=== PATIENT | female | born 1960 | race Caucasian/White ===

== ENCOUNTER 2021-10-04 15:14 | Outpatient (CLI) | payer BC, SELFPAY ==
--- NOTE | ~2021-10-04 | XR_ITS ---
EXAMINATION: XR scapula LT DATE: 10/04/2021 15:33 INDICATION: Posterior left scapular pain. TECHNIQUE: AP and lateral views of the left scapula were obtained. COMPARISON: None. FINDINGS: Alignment is normal. No fracture. Mild left glenohumeral and acromioclavicular osteoarthritis. Visual ized portion of the left lung are clear. Severe lower cervical uncovertebral osteoarthritis. IMPRESSION: 1. Mild left glenohumeral and acromioclavicular osteoarthritis. No acute osseous abnormality. 2. Severe lower cervical uncovertebral osteoarthritis. Reviewed, dictated and finalized at location A. IMPRESSION: 1. Mild left glenohumeral and acromioclavicular osteoarthritis. No acute osseou s abnormality. 2. Severe lower cervical uncovertebral osteoarthritis.
== END 2021-10-04 15:15 | disposition home or self-care (01) ==
LOC: CHSIMG 15:18
PROVIDERS: PCP Nurse Practitioner Family; Visit Provider Nurse Practitioner Family
DX: M89.8X1 Other specified disorders of bone, shoulder (principal)
CPT/HCPCS: 73010

== ENCOUNTER 2024-04-14 10:32 | Outpatient (CLI) | payer BC, SELFPAY ==
--- NOTE | ~2024-04-14 | XR_ITS ---
Left foot Technique: AP, oblique, and lateral views were obtained. Clinical History: Cellulitis Findings: No acute fracture or dislocation is seen. Osseous alignment is anatomic. Joint spaces are p reserved without erosive or degenerative change. Soft tissues are unremarkable. Impression: Unremarkable left foot radiographs. Reviewed, dictated and finalized at [facility]. Impression: Unremarkable left foot radiographs.
== END 2024-04-14 10:33 | disposition home or self-care (01) ==
PROVIDERS: PCP Nurse Practitioner Family; Visit Provider Nurse Practitioner Family
DX: L03.116 Cellulitis of left lower limb (principal)
CPT/HCPCS: 73630; 87070; 87075; 87181; 87205

== ENCOUNTER 2024-04-17 01:15 | Observation (INO) | payer BC, SELFPAY ==
[2024-04-17] VITALS (7 sets, daily range): BP systolic 126–147; BP diastolic 58–72; PULSE 77–85; RESP 14–18; TEMP 36.5–37.1; O2SAT 96–100; BMI 28.0
--- NOTE | ~2024-04-17 | CT_ITS ---
EXAMINATION: CT foot LT w con DATE: 04/17/2024 10:44 INDICATION: Left foot laceration with swelling and concern for osteomyelitis. TECHNIQUE: High resolution computed tomography (CT) of the left foot was performed with 100 mL Omnipa que-350 intravenous contrast. Additional sagittal and coronal reconstructions were performed. Automat ed exposure control and iterative reconstruction technique were employed. The dose-length product was 397.35 mGy-cm. COMPARISON: None FINDINGS: There is an approximately 2 x 2 x 1.5 cm fluid attenuation region of likely phlegmonous change withou t an organized peripheral enhancing wall to suggest abscess located deep to a focal small low-density puncture wound plantar to the tibial sesamoid of the first metatarsal. No evident radiopaque foreign body or soft tissue gas. No cortical erosion to suggest osteomyelitis. Bone alignment is normal. No fracture. 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 No ivonne int effusions to suggest a septic arthritis. Soft tissue swelling with subcutaneous edema extending o amy the dorsum of the foot. IMPRESSION: 1. Puncture wound plantar to the head of the first metatarsal with small region of underlying phlegmo nous change without organized abscess, retained foreign body, soft tissue gas or associated osteomyel itis. Reviewed, dictated and finalized at location A. UREMENT REPRESENTATIVE IMPRESSION: 1. Puncture wound plantar to the head of the first metatarsal with small region of underlying phlegmonous change without organized abscess, retained foreign b eugene, soft tissue gas or associated osteomyelitis.
--- NOTE | 2024-04-17 01:05 | ED.WOUNDLAC ---
HPI - Wound/Laceration General Chief Complaint: Wound/Laceration Stated Complaint: foot pain Time Seen by Provider: 04/17/24 01:28 CDT Source: patient History of Present Illness HPI narrative: this is a 63-year-old female with no significant past medical history presents to the ER with some left lower foot and leg erythema, the patient apparently was walking barefoot in her basement and stepped on a piece of glass and had a cut and was seen by her primary and started on doxycycline but the area appears to be spreading with erythema and redness with warmth and tenderness to her left lower leg, the foot has some sloughing of skin with minimal yellow drainage. Patient is afebrile. Onset (ago): day(s) Location: other Extremity Location: Left: lower leg ( erythema warmth and tenderness) and foot ( Erythema warmth and tenderness) Place: home Patient tetanus UTD: Yes Context: accidental Related Data Allergies Allergy/AdvReac Type Severity Reaction Status Date / Time amoxicillin Allergy Intermediate unknown Verified 04/14/24 10:04 erythromycin base Allergy Intermediate unknown Verified 04/14/24 10:04 Sulfonamides Allergy Intermediate unknown Uncoded 04/14/24 10:04 Review of Systems Review of Systems: All systems reviewed & are unremarkable except as noted in HPI and below PMFSH Past Medical History Medical History (Reviewed 04/17/24 @ 01:08 PAPER PRODUCTS INSPECTOR by Shawn Gary MD) History of chicken pox History of shingles Surgical History Surgical History (Reviewed 04/17/24 @ 01:08 PAPER PRODUCTS INSPECTOR by Shawn Gary MD) H/O oral surgery No pertinent past surgical history Social History Social History (Reviewed 04/17/24 @ 01:08 PAPER PRODUCTS INSPECTOR by Shawn Gary MD) Smoking status: Never smoker Tobacco type: cigarettes Alcohol intake: never Alcohol use details: Allergy to beer Substance use: never Substance use type: does not use Exam Const: General: healthy appearing, no acute distress and alert Nutritional Appearance: well nourished Orientation/consciousness: patient oriented x3 Limitations: no limitations Resp: Effort & Inspection: normal respiratory effort Auscultation: clear to auscultation bilaterally Cardio: Rate: regular rate Rhythm: regular rhythm GI: GI Palp: Yes Soft to palpation Auscultation: normal bowel sounds Urinary Catheter: Urinary Catheter: patent and draining Back/Spine/Pelvis: Back: no CVA tenderness Skin: Wounds: wounds noted Neuro: General: patient oriented x3 and moves all extremities Course Course Emergency Course: Labs reviewed blood cultures drawn, patient started on Levaquin IV 500mg along with IV fluids and admission to hospitalist service, Vital Signs Vital signs: Vital Signs Temperature 36.5 C 04/17/24 01:19 CDT Pulse Rate 85 04/17/24 01:19 CDT Respiratory Rate 18 04/17/24 01:19 CDT Blood Pressure 126/72 04/17/24 01:19 CDT Pulse Oximetry 100 04/17/24 01:19 CDT Oxygen Delivery Room Air 04/17/24 01:19 CDT Temperature 36.5 C 04/17/24 01:19 CDT Pulse Rate 85 04/17/24 01:19 CDT Respiratory Rate 18 04/17/24 01:19 CDT Blood Pressure 126/72 04/17/24 01:19 CDT Pulse Oximetry 100 04/17/24 01:19 CDT Oxygen Delivery Room Air 04/17/24 01:19 CDT Critical Care Time Critical Care Time Critical Care Time: No Discharge Plan Discharge Clinical Impression: Cellulitis of left foot Patient Disposition: Acute Care Hospital [facility] Condition: Guarded Prognosis Prescriptions: No Action doxycycline monohydrate 100 mg capsule 100 mg PO BID Qty: 20 0RF Follow-up/Referrals: Diann Crain NP [Primary Care Provider] - Time of Disposition: 01:10
[2024-04-17] MEDS: SODIUM CHLORIDE 0.9% IV 1,000 ML 999 ML IV CONT (01:21)
[2024-04-17] MEDS: levoFLOXacin 500 MG/D5W 100 ML 500 MG/100 ML BAG 100 MG IVPB (01:25)
--- NOTE | 2024-04-17 01:34 | PC.NURSE ---
ERp Dr Gary spoke w/ pt about admission for cellulitis. Pt agreeable to admission.
--- NOTE | 2024-04-17 01:42 | PC.NURSE ---
Called for bed and spoke w/ accounts payable manager Holly, report given,
--- NOTE | 2024-04-17 01:44 | PC.NURSE ---
Call back from Lizz. Pt will go to Rm [id number]
[2024-04-17] MEDS: MORPHINE SULFATE (*CRX) 2 MG/ML INJ IV PUSH (01:59)
[2024-04-17] MEDS: SODIUM CHLORIDE 0.9% IV 1,000 ML 100 ML IV CONT (02:02)
[2024-04-17 02:07] LABS: Alanine Aminotransferase 15 U/L (14-59); Albumin Level 2.7 g/dL (3.4-5.0); Alkaline Phosphatase 72 U/L (46-116); Anion Gap 14 mmol/L (4-12); Aspartate Amino Transferase 12 U/L (15-37); Blood Urea Nitrogen 18 mg/dL (7-18); Calcium 8.9 mg/dL (8.5-10.1); Carbon Dioxide 26 mmol/L (21-32); Chloride 93 mmol/L (98-108); Estimated CRCL calculation 50 ml/min; Estimated Glomerular Filt Rate 54; Glucose 271 mg/dL (70-99); Osmolality Calculated 287 mOsm/kg (285-295); Potassium 3.6 mmol/L (3.5-5.1); Sodium 133 mmol/L (136-145); Total Protein 7.2 g/dL (6.4-8.2)
[2024-04-17 02:13] LABS: Basophils Absolute Auto 0.12 K/mm3 (0.00-0.10); Basophils Percent Auto 0.8 % (0.0-1.0); Eosinophils Absolute Auto 0.13 K/mm3 (0.02-0.50); Eosinophils Percent Auto 0.9 % (1.0-6.0); Hematocrit 37.8 % (35.0-49.0); Hemoglobin 12.6 g/dL (12.0-15.0); Immature Granulocyte Absolute 0.14 K/mm3 (0.00-0.00); Lymphocytes Absolute Auto 1.01 K/mm3 (1.10-4.50); Mean Corpuscular HGB Conc 33.3 g/dL (32-36); Mean Corpuscular Hemoglobin 27.6 pg (27.0-31.0); Mean Corpuscular Volume 82.7 fL (78.0-102.0); Mean Platelet Volume 9.8 fl (9.2-11.8); Monocytes Absolute Auto 1.12 K/mm3 (0.10-0.90); Monocytes Percent Auto 7.8 % (2.0-11.0); Neutrophils Absolute Auto 11.88 K/mm3 (1.70-7.20); Neutrophils Percent Auto 82.5 % (50.0-70.0); Platelet Count Result 267 K/mm3 (150-420); Red Blood Count 4.57 M/mm3 (4.20-5.40); Red Cell Distribution Width 11.9 % (11.6-14.4); White Blood Count 14.4 K/mm3 (4.8-10.8)
--- NOTE | 2024-04-17 02:48 | ADMGEN ---
This patient, Ida Grande, was admitted to 2nd Floor Room 226-2. Patient oriented to hospital policies and general routines including ID bracelet, bed and alarms, visiting hours, pain management, procedures, bathroom and other care routines, personal items, smoking policy, room service/diet, and visiting hours. Information on how to activate the Rapid Response Team has been discussed. Patient are encouraged to report perceived risks to care and to ask questions if they do not understand what they are told or what they should do.
[2024-04-17 06:28] LABS: Basophils Absolute Auto 0.08 K/mm3 (0.00-0.10); Basophils Percent Auto 0.6 % (0.0-1.0); Eosinophils Absolute Auto 0.06 K/mm3 (0.02-0.50); Eosinophils Percent Auto 0.4 % (1.0-6.0); Hematocrit 33.1 % (35.0-49.0); Immature Granulocyte Absolute 0.18 K/mm3 (0.00-0.00); Immature Granulocyte Percent A 1.3 % (0.0-0.0); Lymphocytes Absolute Auto 0.83 K/mm3 (1.10-4.50); Lymphocytes Percent Auto 6.1 % (18.0-42.0); Mean Corpuscular HGB Conc 33.2 g/dL (32-36); Mean Corpuscular Hemoglobin 27.4 pg (27.0-31.0); Mean Corpuscular Volume 82.3 fL (78.0-102.0); Mean Platelet Volume 9.7 fl (9.2-11.8); Neutrophils Absolute Auto 11.42 K/mm3 (1.70-7.20); Neutrophils Percent Auto 83.6 % (50.0-70.0); Platelet Count Result 214 K/mm3 (150-420); Red Blood Count 4.02 M/mm3 (4.20-5.40); Red Cell Distribution Width 11.8 % (11.6-14.4); White Blood Count 13.7 K/mm3 (4.8-10.8)
[2024-04-17 06:52] LABS: Alanine Aminotransferase 16 U/L (14-59); Albumin Level 2.2 g/dL (3.4-5.0); Alkaline Phosphatase 72 U/L (46-116); Anion Gap 12 mmol/L (4-12); Aspartate Amino Transferase 12 U/L (15-37); Bilirubin,Total 0.8 mg/dL (0.00-1.00); Blood Urea Nitrogen 18 mg/dL (7-18); Calcium 8.2 mg/dL (8.5-10.1); Carbon Dioxide 23 mmol/L (21-32); Chloride 96 mmol/L (98-108); Estimated CRCL calculation 76 ml/min; Estimated Glomerular Filt Rate > 60; Glucose 259 mg/dL (70-99); Osmolality Calculated 282 mOsm/kg (285-295); Sodium 131 mmol/L (136-145); Total Protein 6.2 g/dL (6.4-8.2)
[2024-04-17] MEDS: ACETAMINOPHEN 325 MG TABLET 650 MG PO (07:44)
[2024-04-17 10:34] LABS: Hemoglobin A1C 13.1 % (<5.7)
[2024-04-17] MEDS: VANCOMYCIN 1,500 MG/NS 500 ML 1,500 MG/500 ML BAG 250 MG IVPB (11:38)
[2024-04-17] MEDS: metroNIDAZOLE 250 MG TABLET 500 MG PO (14:23)
--- NOTE | 2024-04-17 16:10 | PM.TDS ---
Transfer Discharge Sum: Prov Provider Date of admission: 04/17/24 01:46 PAPERHANGER Primary care physician: Diann Crain NP Admitting clinician: Terry Daley MD DS: Admitting Diagnosis Discharge Date 04/17/24 Admitting Diagnosis Foot wound DS: Discharge Diagnosis Discharge Diagnosis (1) Diabetic foot ulcer: Code(s): E11.621 - Type 2 diabetes mellitus with foot ulcer; L97.509 - Non-pressure chronic ulcer of other part of unspecified foot with unspecified severity Status: Acute Assessment and Plan: Patient reports walking barefoot in her basement earlier this week and stepped on an unknown object. She did not initially notice that she had stepped on anything until she was getting into the shower and noticed her foot was bleeding. Once she noticed it was bleeding she cleaned the wound with peroxide and placed a bandage. She was seen by her PCP who had an x-ray completed, tetanus shot, and started her on doxycycline. She attempted to go to work the next couple of days but had to leave early both times. On Thursday evening she noticed the erythema and edema was worse with dark coloration between her great and first toe. It was at this time she decided to come into the ED for evaluation. Wound photos were taken on admission Blood cultures pending, wound culture pending Started on Zosyn in the ED. Changed to Vancomycin, Cefepime, and oral Flagyl Lactic was not drawn on admission. Ordered lactic and CRP. She received 1 L NS in the ED and was started on NS at 100 ml per hour. Okay to d/c fluids at this time. Blood pressures are stable. Dr Dominique was contacted and has accepted the patient for consult for possible surgical debridement. He will see her tomorrow. Elevate leg, pain control She will need to transfer to [facility] for surgical consult. Patient has been accepted by the mid-shift provider (2) Cellulitis of left foot: Code(s): L03.116 - Cellulitis of left lower limb Status: Acute Assessment and Plan: see above (3) Diabetes: Code(s): E11.9 - Type 2 diabetes mellitus without complications Status: Acute Assessment and Plan: No history per patient report. Blood glucose was 252 on labs. Hemoglobin A1C was 13% started on Lantus 13 units hs, moderate SSI ac/hs accu checks, hypoglycemia protocol diabetic diet needs diabetes education and dietitian consult Transfer Discharge Sum: Med Medications Active and Home Medications: Home Medications doxycycline monohydrate 100 mg capsule 100 mg PO BID #20 caps 04/14/24 [Rx Confirmed 04/17/24] Active Medications Acetaminophen (Acetaminophen 325 Mg Tablet) 650 mg PO Q4H PRN PRN Reason: Mild Pain (1-3) or Fever Last Admin: 04/17/24 07:44 Dose: 650 mg Vancomycin HCl (Vancomycin 1,500 Mg/Ns 500 Ml) 1,500 mg in 500 mls @ 250 mls/hr IVPB Q18H [facility] Last Infusion: 04/17/24 13:40 Dose: Infused Cefepime HCl (Maxipime 2 Gm/Ns 50 Ml) 2 gm in 50 mls @ 100 mls/hr IVPB Q12HR JOSIE Metronidazole (Metronidazole 250 Mg Tablet) 500 mg PO Q8HR [facility] Last Admin: 04/17/24 14:23 Dose: 500 mg Morphine Sulfate (Morphine Sulfate (*Crx) 2 Mg/Ml Inj) 2 mg IV PUSH Q4H PRN PRN Reason: Pain Rated 7-10 Last Admin: 04/17/24 01:59 PAPERHANGER Dose: 2 mg Naloxone HCl (Naloxone Hcl 0.4 Mg/Ml Vial) 0.1 mg IV PUSH Q2M PRN PRN Reason: Opiate Reversal Transfer Discharge Sum: Hosp Hospital Course Hospital course: Ida Grande is a 63 year old female with no significant past medical history but found to have a hemoglobin A1C. Patient reports walking barefoot in her basement earlier this week and stepped on an unknown object. She did not initially notice that she had stepped on anything until she was getting into the shower and noticed her foot was bleeding. Once she noticed it was bleeding she cleaned the wound with peroxide and placed a bandage. She was seen by her PCP who had an x-ray completed, tetanus shot, and started her on doxycycline. She attempted to go to work the next couple of days but had to leave early both times. On Thursday evening she noticed the erythema and edema was worse with dark coloration between her great and first toe. It was at this time she decided to come into the ED for evaluation. In the emergency room labs were significant for a WBC of 14.4, sodium 131, and Cr 1.03. Her blood glucose was elevated in the 200's and hemoglobin was found to be 13%. She was started on IV Levaquin, 1 L NS and was started on maintenance fluids at 100 ml per hour. Lactic was not checked. Blood cultures were drawn. She was admitted in this setting by the emergency room provider with a diagnosis of cellulitis. Time Spent with Patient Time attestation: Total time spent providing and/or coordinating transfer services: 90 Exam Narrative: General: appears comfortable, in no acute distress, flat expression Respiratory: breathing is unlabored with even chest rise/fall, lungs are clear without wheezing, rhonchi, and crackles Cardiovascular: Rate and rhythm regular, normal s1s2, no murmur Abdomen: Soft, round, non-tender, active bowel sounds Extremities: No cyanosis, clubbing. Pulses 2/2. Left lower extremity has erythema and edema starting in her foot and traveling up into her left leg. She has a puncture wound to the ball of her foot below her great toe. Wound is open and draining purulent drainage. She has a blister that has opened with surrounding white tissue. Neuro: A&O x 4 Skin: Warm, dry, intact. DS: Data Data Completed and Pending Labs on day of discharge: Labs from last 24 hours 04/17/24 04/17/24 04/17/24 06:09 05:52 01:21 PAPERHANGER WBC 13.7 H 14.4 H RBC 4.02 L 4.57 Hgb 11.0 L 12.6 Hct 33.1 L 37.8 MCV 82.3 82.7 MCH 27.4 27.6 MCHC 33.2 33.3 RDW 11.8 11.9 Plt Count 214 267 MPV 9.7 9.8 Immature Gran % (Auto) 1.3 H 1.0 H Neut % (Auto) 83.6 H 82.5 H Lymph % (Auto) 6.1 L 7.0 L Island % (Auto) 8.0 7.8 Eos % (Auto) 0.4 L 0.9 L Baso % (Auto) 0.6 0.8 Lymph # (Auto) 0.83 L 1.01 L Island # (Auto) 1.10 H 1.12 H Eos # (Auto) 0.06 0.13 Baso # (Auto) 0.08 0.12 H Abs Immat Gran (auto) 0.18 H 0.14 H Absolute Neuts (auto) 11.42 H 11.88 H Absolute Nucleated RBC 0.00 0.00 Nucleated RBC % 0.0 0.0 Sodium 131 L 133 L Potassium 4.0 3.6 Chloride 96 L 93 L Carbon Dioxide 23 26 Anion Gap 12 14 H BUN 18 18 Creatinine 0.74 1.03 H Estim Creat Clear Calc 76 50 Estimated GFR > 60 54 L Glucose 259 H 271 H Hemoglobin A1c 13.1 H Calculated Osmolality 282 L 287 Calcium 8.2 L 8.9 Total Bilirubin 0.8 1.0 AST 12 L 12 L ALT 16 15 Alkaline Phosphatase 72 72 Total Protein 6.2 L 7.2 Albumin 2.2 L 2.7 L
[2024-04-17 17:56] LABS: Glucose Point of Care 383 mg/dl (65-105)
[2024-04-17] MEDS: CEFEPIME 2 GM/NS 50 ML 2 GM/50 ML BAG IVPB (18:04)
[2024-04-17] MEDS: HYDROcodone/acetaminophen (*CRX) 10-325 MG TABLET 1 TAB PO (18:06)
[2024-04-17] MEDS: INSULIN HUMAN LISPRO (*BKC) 1,000 UNITS/10 ML VIAL SUB-Q (18:07)
[2024-04-17] MEDS: ONDANSETRON INJ 4 MG/2 ML VIAL IV PUSH (19:55)
[2024-04-17 20:50] LABS: Glucose Point of Care 253 mg/dl (65-105)
--- NOTE | 2024-04-17 21:04 | PC.NURSE ---
Pt c/o nausea and had emesis while family at bedside. This RN administered Zofran IVP, given emesis bags, and brought a cool rag to cool pt. Pt's vomiting subsided until [facility] arrived to transfer pt. Pt vomited more while on the EMS stretcher, and stated after vomiting she feels slightly better. Pt belongings taken w/pt by EMS.
[2024-04-17 22:41] LABS: Glucose Point of Care 309 mg/dl (65-105)
== END 2024-04-17 20:50 | disposition short-term general hospital (02) ==
LOC: CHS2ND 01:47
PROVIDERS: Nurse Practitioner Acute Care; Admitting Provider Internal Medicine; Emergency Provider Emergency Medicine; PCP Nurse Practitioner Family; Visit Provider Internal Medicine
DX: L03.116 Cellulitis of left lower limb (principal); E11.621 Type 2 diabetes mellitus with foot ulcer; L97.509 Non-pressure chronic ulcer of other part of unspecified foot with unspecified severity
CPT/HCPCS: 36415; 73701; 80053; 82948; 83036; 85025; 87040; 87075; 87181; 96365; 96366; 96367; 96375; 99285; A9270; G0378; J0692; J1815; J2270; J2405; J3370; J7030; Q9967

== ENCOUNTER 2024-04-17 21:58 | Inpatient (IN) | payer BC, SELFPAY ==
--- NOTE | ~2024-04-17 | US_ITS ---
ULTRASOUND ANKLE BRACHIAL INDEX Ordering provider: Nikita Dominique MD History: . Left foot diabetic ulcer . Comparison: None. FINDINGS: Right brachial systolic blood pressure: 196 mmHg Left brachial systolic blood pressure: CNO mmHg Right ankle systolic blood pressure: 159 mmHg Left ankle systolic blood pressure: 15 2 mmHg Right ankle/arm index (GORDON): 0.81 Left ankle/arm index (GORDON): 0.78 Note regarding GORDON: --Normal= 1.0 or slightly greater. --Claudication (moderate stenosis or occlusive state)= 0.6 to 0.9. --Rest pain (severe occlusive states)= 0.5 or less. Vessels: IMPRESSION: Moderate stenosis is suggestive bilaterally. Reviewed, dictated and finalized at location A. ICAL SERVICES ASST
--- NOTE | ~2024-04-17 | MR_ITS ---
CORRECTED REPORT corrected examination description to MR foot LT wo con [facility] [place] 04/21/24 This report was recreated on 04/21/24. Original report was BORE OPERATOR EXAMINATION: MR foot LT wo con DATE: 04/20/2024 16:56 INDICATION: Left foot diabetic infection. TECHNIQUE: Magnetic resonance imaging (MRI) of the left foot was performed without intravenous contrast. COMPARISON: Left foot CT 04/17/2024, radiographs 04/14/2024 FINDINGS: Alignment is normal. No fracture. There is mild osteoarthritis of some of the midfoot and forefoot joints. There is mild tenosynovitis of flexor hallucis longus. There is widespread edema in the soft tissues of the foot, consistent with cellulitis. There are drains in the plantar soft tissues of the forefoot. IMPRESSION: 1. No evidence of osteomyelitis. Reviewed, dictated and finalized at location A. BORE OPERATOR MTDD
--- NOTE | 2024-04-17 21:51 | P.HP_ITS ---
H&P: HPI History of Present Illness Date/Time: 04/17/24 21:51 Chief Complaint: Foot Wound Narrative: 63 y/o F presents here with wound to left foot with PMH of shingles, migraines, and is post-menopausal. The patient presented to [place] ER for further evaluation of left foot wound and left leg redness.? She initially believes wound developed after she was walking barefoot in her apartment and she stepped on something sharp causing a cut. ?After injury she cleaned the wound with peroxide and placed a bandage.? Initially sought care with her PCP started her on doxycycline on 04/14, update her Tdap, and an x-ray was obtained.? Foot XR on 04/14 was unremarkable. ?However, despite ABX initiation the area has continued to increase in redness, warmth, and tenderness.? Now having sloughing of the skin and scant yellow drainage.? She denies associated fever, chills, or body aches.? She endorses pain to the left foot.? During her initial workup was noted that she had a blood glucose of 271 no prior known history of diabetes.? A1C was 13%.? She denies associated polydipsia, polyuria, fatigue, clamminess, nausea, vomiting.? Patient was initially admitted to [place], however given worsening wound she is being transferred here for a general surgery consultation for possible debridement versus amputation. ED workup showed:? WBC 14.4, sodium 131, creatinine 1.03 and GFR 54 (no previous available for comparison), glucose 271, hemoglobin A1C 13%. Foot CT performed today (04/17) showed puncture wound plantar to the head of the 1st metatarsal with small region of underlying phlegmonous change change without organized abscess, retained foreign body, soft tissue gas, or associated osteomyelitis. Review of Systems Review of Systems: All systems reviewed & are unremarkable except as noted in HPI and below PMFSH Past Medical History Medical History History of chicken pox History of shingles Migraines Surgical History Surgical History H/O oral surgery Social History Social History Smoking status: Never smoker Tobacco type: cigarettes Alcohol intake: never Alcohol use details: Allergy to beer Substance use: never Substance use type: does not use Do You Feel Safe in your Home?: Yes Lack of Transportation: No Lack of Food: Never True Current Housing: I Have Housing Concerned About Future Housing: No Difficulty Paying Gas/Electric Bills: No Difficulty Paying for Meds: No Currently Unemployed: No Education: Trade/Vocational Certificate Difficulty w/ Childcare or Family Care: No Spiritual care concerns: Yes (Yazidi) Meds Home Medications and Allergies Home Medications Medication Instructions Recorded Confirmed Type No Home Medications 04/17/24 04/17/24 History Allergies Allergy/AdvReac Type Severity Reaction Status Date / Time amoxicillin Allergy Intermediate unknown Verified 04/14/24 10:04 erythromycin base Allergy Intermediate unknown Verified 04/14/24 10:04 Sulfonamides Allergy Intermediate unknown Uncoded 04/14/24 10:04 Exam Const: General: no acute distress and uncomfortable Other: , female, ill appearing HENMT: Face/Nose/Sinus: Normal nares present Mouth: Yes moist mucous membranes Eyes: General: appearance normal, both eyes and all related structures Sclera: sclerae normal Pupils: Equal, round and reactive pupils present EOM: EOMs intact bilaterally Resp: Effort & Inspection: normal respiratory effort Auscultation: clear to auscultation bilaterally Cardio: Rate: regular rate Rhythm: regular rhythm Other: S1-S2 present without murmur, rub, ectopy GI: Other: Abdomen soft, nondistended, nontender Skin: General skin exam: normal color and no rashes or lesions noted Wounds: wounds noted Other: Open wound to plantar aspect of left foot near base of 1st toe measuring approximately 1 cm with scant/diffuse yellow drainage. Sloughing starting at base of left 1st toe and stops near arch. Sloughing to dorsal aspect of foot. Erythema prominent to dorsal aspect of foot but does not extend to 2nd through 5th toe which are pale with poor cap refill. Erythema streaking up left leg involving the distal 1/3 of her calf. DP pulses intact. Skin moist near forehead. Neuro: Speech: normal speech Motor exam (neuro): 5/5 motor strength present throughout Sensory Exam: normal sensation Other: A&O x4 Extrem: General: normal exam except as noted Other: No edema. Psych: Mental Status: mental status grossly normal Affect: normal affect Other: Good insight and judgment, pleasant. Assessment and Plan Assessment and plan (1) Diabetic foot ulcer: Qualifiers: Diabetes mellitus type: type 2 Diabetic foot ulcer location: toe Laterality: left Non-pressure ulcer stage: unspecified non-pressure ulcer stage Qualified Code(s): E11.621 - Type 2 diabetes mellitus with foot ulcer; L97.529 - Non-pressure chronic ulcer of other part of left foot with unspecified severity Code(s): E11.621 - Type 2 diabetes mellitus with foot ulcer; L97.509 - Non-pressure chronic ulcer of other part of unspecified foot with unspecified severity Status: Acute Assessment and Plan: - CT foot: 1. Puncture wound plantar to the head of the first metatarsal with small region of underlying phlegmonous change without organized abscess, retained foreign body, soft tissue gas or associated osteomyelitis. - wound documented via photo at beginning of admission, plan to update. - started on Zosyn in the ED. has since been transitioned to vancomycin IV, cefepime IV, and Flagyl p.o., continue. - lactic not completed during initial evaluation, add procalcitonin and CRP - generally surgery consulted for possible surgical debridement versus amputation, awaiting formal recs - analgesics and antipyretics p.r.n. - wound nurse consulted (2) Cellulitis of left foot: Code(s): L03.116 - Cellulitis of left lower limb Status: Acute Assessment and Plan: - see above (3) Diabetes: Qualifiers: Diabetes mellitus complication status: with hyperglycemia Diabetes mellitus predatory animal exterminator insulin use: without predatory animal exterminator use Diabetes mellitus type: type 2 Qualified Code(s): E11.65 - Type 2 diabetes mellitus with hyperglycemia Code(s): E11.9 - Type 2 diabetes mellitus without complications Status: Acute Assessment and Plan: - initial glucose 271 and A1C 13% - started on Lantus 13 units HS - hypoglycemia protocol - POC blood glucose ACHS - correct regimen ordered - moderate dose TIDWM - master electrician and dietitian consulted Plan Patient had nausea and vomiting prior to leaving [facility]. Given 1 dose of Zofran with minimal relief. Exchanged to Reglan as first-line antiemetic and Benadryl as second-line antiemetics. Patient facing backwards in the ambulance which worsened the nausea, hx of motion sickness. One dose of meclizine ordered. Diet: diabetic GI Prophylaxis: not currently indicated DVT Prophylaxis: Lovenox Lines: peripheral Code Status: full code Quality VTE Prophylaxis VTE prophylaxis: pharmacologic ordered Hospitalist MIPS Advance Care Plan I have confirmed that the patient's Advanced Care Plan is present, code status is documented, or surrogate decision maker is listed in patient medical record.: Yes Medication Reconciliation I have utilized all available resources to obtain, update and review the patients current medications (includes all prescriptions, OTC, herbals, cannabis, and nutritional supplements).: Yes
[2024-04-17 22:00] VITALS: BP 176/55; PULSE 71; RESP 16; TEMP 36; O2SAT 97
[2024-04-17] MEDS: MECLIZINE HCL 25 MG TABLET PO (22:35)
[2024-04-17] MEDS: INSULIN GLARGINE (*BKC) 100 UNITS/ML 13 UNITS SUB-Q (22:51)
[2024-04-17] MEDS: INSULIN ASPART (*BKC) 100 UNITS/ML SUB-Q (22:52)
[2024-04-17] MEDS: VANCOMYCIN 500 MG/NS 100 ML 500 MG/100 ML BAG 100 MG IVPB (22:58)
[2024-04-17 23:01] VITALS: BMI 28.0
[2024-04-17] MEDS: METOCLOPRAMIDE HCL INJ 10 MG/2 ML VIAL IV PUSH (23:03)
[2024-04-17] MEDS: metroNIDAZOLE 500 MG TABLET PO (23:33)
--- NOTE | 2024-04-17 23:47 | ADMGEN ---
This patient, Ida Grande, was admitted to Medical Room 245-. Patient/family oriented to hospital policies and general routines including ID bracelet, bed and alarms, visiting hours, pain management, procedures, bathroom and other care routines, personal items, smoking policy, room service/diet, and visiting hours. Information on how to activate the Rapid Response Team has been discussed. Patient/Family are encouraged to report perceived risks to care and to ask questions if they do not understand what they are told or what they should do.
[2024-04-18] VITALS (14 sets, daily range): BP systolic 95–166; BP diastolic 54–71; PULSE 69–77; RESP 12–20; TEMP 36.2–37.2; O2SAT 93–100; BMI 28.1
[2024-04-18 05:59] LABS: Alanine Aminotransferase 12 U/L (6-35); Albumin Level 3.2 g/dL (3.5-5.1); Alkaline Phosphatase 66 U/L (38-126); Anion Gap 10 mmol/L (4-12); Aspartate Amino Transferase 18 U/L (14-36); Bilirubin,Total 0.5 mg/dL (0.2-1.3); Blood Urea Nitrogen 15 mg/dL (7-17); CRP 7.1 mg/dL (<1.0); Calcium 8.4 mg/dL (8.4-10.2); Carbon Dioxide 25 mmol/L (22-30); Chloride 98 mmol/L (98-107); Estimated CRCL calculation 109 ml/min; Estimated Glomerular Filt Rate > 60; Glucose 260 mg/dL (65-110); Potassium 4.4 mmol/L (3.4-5.0); Sodium 133 mmol/L (137-145)
[2024-04-18] MEDS: metroNIDAZOLE 500 MG TABLET PO ×2 (06:00→13:34)
[2024-04-18] MEDS: METOCLOPRAMIDE HCL INJ 10 MG/2 ML VIAL IV PUSH ×3 (06:00→21:31)
[2024-04-18] MEDS: CEFEPIME 2 GM/NS 50 ML 2 GM/50 ML BAG IVPB ×2 (06:03→20:36)
[2024-04-18 06:13] LABS: Procalcitonin 0.1 ng/mL
--- NOTE | 2024-04-18 08:23 | P.PNIM_ITS ---
Progress Note: A&P Assessment and Plan (1) Diabetes: Qualifiers: Diabetes mellitus complication status: with hyperglycemia Diabetes mellitus residential insulin use: without residential use Diabetes mellitus type: type 2 Qualified Code(s): E11.65 - Type 2 diabetes mellitus with hyperglycemia Code(s): E11.9 - Type 2 diabetes mellitus without complications Status: Acute (2) Diabetic foot ulcer: Qualifiers: Diabetes mellitus type: type 2 Diabetic foot ulcer location: toe Laterality: left Non-pressure ulcer stage: unspecified non-pressure ulcer stage Qualified Code(s): E11.621 - Type 2 diabetes mellitus with foot ulcer; L97.529 - Non-pressure chronic ulcer of other part of left foot with unspecified severit y Code(s): E11.621 - Type 2 diabetes mellitus with foot ulcer; L97.509 - Non-pressure chronic ulcer of other part of unspecified foot with unspecified severity Status: Acute (3) Cellulitis of left foot: Code(s): L03.116 - Cellulitis of left lower limb Status: Acute Plan 63 y/o F presents here with wound to left foot with PMH of shingles, migraines, presented to [place] [facility] for further evaluation of left foot wound and left leg redness.? She initially believes wound developed after she was walking barefoot in her apartment and she stepped on something sharp causing a cut. ?After injury she cleaned the wound with peroxide and placed a bandage.? Initially sought care with her PCP started her on doxycycline on 04/14, update her Tdap, and an x-ray was obtained.? Foot XR on 04/14 was unremarkable. ?However, despite ABX initiation the area has continued to increase in redness, warmth, and tenderness.? Now having sloughing of the skin and scant yellow drainage.? Diabetic foot ulcer: Qualifiers: Diabetes mellitus type: type 2 Diabetic foot ulcer location: toe Laterality: left Non-pressure ulcer stage: unspecified non-pressure ulcer stage Qualified Code(s): E11.621 - Type 2 diabetes mellitus with foot ulcer; L97.529 - Non-pressure chronic ulcer of other part of left foot with unspecified severity Code(s): E11.621 - Type 2 diabetes mellitus with foot ulcer; L97.509 - Non-pressure chronic ulcer of other part of unspecified foot with unspecified severity Status: Acute Assessment and Plan: - CT foot: 1. Puncture wound plantar to the head of the first metatarsal with small region of underlying phlegmonous change without organized abscess, retained foreign body, soft tissue gas or associated osteomyelitis. - wound documented via photo at beginning of admission, plan to update. - started on Zosyn in the ED. has since been transitioned to vancomycin IV, cefepime IV, and Flagyl p.o., continue. - lactic not completed during initial evaluation, add procalcitonin and CRP - generally surgery consulted for possible surgical debridement versus amputation, awaiting formal recs - analgesics and antipyretics p.r.n. - wound nurse consulted Pending wound culture, patient is afebrile over the night, continue current antibiotics Cellulitis of left foot: Code(s): L03.116 - Cellulitis of left lower limb Status: Acute Assessment and Plan: see above Bacteremia Blood culture in [place] grows Gram-positive cocci Repeat blood culture Uncontrolled type 2 diabetes Qualifiers: Diabetes mellitus complication status: with hyperglycemia Diabetes mellitus residential insulin use: without termite treater use Diabetes mellitus type: type 2 Qualified Code(s): E11.65 - Type 2 diabetes mellitus with hyperglycemia Code(s): E11.9 - Type 2 diabetes mellitus without complications Status: Acute Assessment and Plan: - initial glucose 271 and A1C 13% - started on Lantus 13 units HS - hypoglycemia protocol - POC blood glucose ACHS - correct regimen ordered - moderate dose TIDWM - certified adapted physical educator and dietitian consulted 04/18 glucose is not controlled and target Increase Lantus 20 units q.h.s., start aspart 4 u before each meal, continue sliding scale motion sickness nausea and vomiting prior to leaving [facility] hospital. Given 1 dose of Zofran with minimal relief. Hyponatremia Mild hyponatremia Diet: diabetic GI Prophylaxis: not currently indicated DVT Prophylaxis: Lovenox Lines: peripheral Code Status: full code Subjective Date/time seen: 04/18/24 08:23 Interval history: Patient afebrile, blood pressure stable, no O2 desaturation, labs reviewed. Patient still has left foot pain, tolerable on pain management Blood culture from outside hospital grew Gram-positive cocci in 1 bottle per Alicia report Denies nausea vomiting chest pain shortness of breath. abdomen pain diarrhea Exam Narrative: GENERAL: Pleasant, in no acute distress. Well-nourished. - EYES: EOMI. Anicteric. - HENT: Moist mucous membranes. - LUNGS: Clear to auscultation bilateral ly, no wheezing, rhonchi, or rales. - CARDIOVASCULAR: Regular rate and rhyth m. No murmur. No JVD. - ABDOMEN: Soft, non-tender and non-dist ended. No palpable masses. - EXTREMITIES: No edema. Peripheral puls es 2+. Non-tender. - NEUROLOGIC: No focal neurological defi cits. CN II-XII grossly intact. - PSYCHIATRIC: Awake, Alert and oriented x 3. Appropriate mood and affect. - SKIN: Left foot nonhealing ulcer, red ness swelling and tender of the skin around ulcer of the left foot - LYMPH: No cervical lymphadenopathy. Objective Data Vital Signs Vital Signs: Vital Signs - 24 hr 04/17/24 22:00 04/18/24 00:25 04/17/24 22:15 Temperature 96.8 F L 97.1 F L Pulse Rate 71 73 Respiratory Rate 16 16 Blood Pressure 176/55 H 143/69 H Pulse Oximetry 97 98 Oxygen Delivery Room Air 04/18/24 05:03 04/18/24 04:37 Temperature 97.1 F L Pulse Rate 71 72 Respiratory Rate 16 Blood Pressure 144/63 H Pulse Oximetry 98 Oxygen Delivery Intake/Output Intake/Output: Intake & Output 04/16/24 04/17/24 04/17/24 04/18/24 00:59 00:59 23:59 23:59 Intake Total 200 Balance 200 Meds/Results Medications: Active Medications Generic Name Dose Route Start Last Admin Trade Name Freq PRN Reason Stop Dose Admin Acetaminophen 650 mg 04/17/24 21:58 Acetaminophen 325 Mg Tablet PO Q4H PRN Mild Pain (1-3) or Fever Hydrocodone Bitart/Acetaminophen 1 tab 04/17/24 21:58 Hydrocodone/Acetaminophen (*Crx) 5-325 Mg Tablet PO Q4H PRN Moderate Pain (4-6) Dextrose 12.5 gm 04/17/24 22:00 Dextrose 50% 25 Gm/50 Ml Syringe IV PUSH PRN PRN Hypoglycemia Protocol Diphenhydramine HCl 25 mg 04/17/24 21:58 Diphenhydramine Hcl Inj 50 Mg/Ml Vial IV PUSH Q6H PRN Nausea And Vomiting Enoxaparin Sodium 40 mg 04/18/24 09:00 Enoxaparin 40 Mg/0.4 Ml Syringe SUB-Q DAILY JOSIE Glucagon 1 mg 04/17/24 22:00 Glucagon For Inj 1 Mg Vial IM PRN PRN Hypoglycemia Protocol Glucose 15 gm 04/17/24 22:00 Glucose Oral Gel 15 Gm Of Glucse In 37.5 Gm Tube PO PRN PRN Hypoglycemia Protocol Dextrose 1,000 mls @ 100 mls/hr 04/17/24 22:00 Dextrose 5% 1,000 Ml IVPB PRN PRN Hypoglycemia Protocol Cefepime HCl 2 gm in 50 mls @ 100 mls/hr 04/18/24 06:00 04/18/24 06:33 Maxipime 2 Gm/Ns 50 Ml IVPB Infused Q12H JOSIE Infusion Vancomycin HCl 1,500 mg in 500 mls @ 250 mls/hr 04/18/24 09:00 Vancomycin 1,500 Mg/Ns 500 Ml IVPB 04/18/24 12:00 Q18H JOSIE Vancomycin HCl 1,500 mg in 500 mls @ 250 mls/hr 04/18/24 21:00 Vancomycin 1,500 Mg/Ns 500 Ml IVPB Q12H JOSIE Insulin Aspart 3 - 6 units 04/18/24 08:00 Insulin Aspart (*Bkc) 100 Units/Ml SUB-Q TIDWM [facility] Protocol Insulin Glargine 13 units 04/17/24 22:30 04/17/24 22:51 Insulin Glargine (*Bkc) 100 Units/Ml SUB-Q 13 units HS JOSIE Administration Metoclopramide HCl 10 mg 04/18/24 00:00 04/18/24 06:00 Metoclopramide Hcl Inj 10 Mg/2 Ml Vial IV PUSH 10 mg Q6HR JOSIE Administration Metronidazole 500 mg 04/17/24 22:25 04/18/24 06:00 Metronidazole 500 Mg Tablet PO 500 mg Q8HR JOSIE Administration Morphine Sulfate 2 mg 04/17/24 21:58 Morphine Sulfate (*Crx) 2 Mg/Ml Inj IV PUSH Q4H PRN Pain Rated 7-10 Labs Labs: Laboratory Results - last 24 hr 04/18/24 05:22 Sodium 133 L Potassium 4.4 Chloride 98 Carbon Dioxide 25 Anion Gap 10 BUN 15 Creatinine 0.50 L Estim Creat Clear Calc 109 Estimated GFR > 60 Glucose 260 H Calcium 8.4 Total Bilirubin 0.5 AST 18 ALT 12 Alkaline Phosphatase 66 C-Reactive Protein 7.1 H Total Protein 7.0 Albumin 3.2 L Procalcitonin 0.1
[2024-04-18 08:24] LABS: Glucose Point of Care 223 mg/dl (65-105)
[2024-04-18] MEDS: VANCOMYCIN 1,500 MG/NS 500 ML 1,500 MG/500 ML BAG 250 MG IVPB (08:40)
[2024-04-18] MEDS: ENOXAPARIN 40 MG/0.4 ML SYRINGE SUB-Q (08:43)
[2024-04-18] MEDS: INSULIN ASPART (*BKC) 100 UNITS/ML SUB-Q (08:46)
--- NOTE | 2024-04-18 10:04 | P.CONGS_ITS ---
Assessment and Plan Assessment and plan (1) Foot abscess, left: Code(s): L02.612 - Cutaneous abscess of left foot Status: Acute Assessment and Plan: The patient had a puncture wound of an unknown object 1 week ago with progressive infection of the left foot. She is a newly diagnosed diabetic on this admission. She has erythema and swelling of the left foot extending about longterm up the left lower leg. She has a purulent draining puncture wound to the plantar foot over the 1st metatarsal head. CT of the left foot showed no evidence of osteomyelitis. She will need at least incision and drainage of the left foot abscess and possible debridement. Description of the procedure, risks, benefits, alternatives, and expected recovery were discussed with the patient in detail. All questions were answered. The patient agrees to proceed. I have made her NPO this morning. She ate her breakfast around 9:00 am. We will add her onto the surgery schedule later this afternoon for I&D by Dr. Dominique. (2) Diabetic infection of left foot: Code(s): E11.628 - Type 2 diabetes mellitus with other skin complications; L08.9 - Local infection of the skin and subcutaneous tissue, unspecified Status: Acute Assessment and Plan: Continue IV antibiotics. She is currently on IV Cefepime, metronidazole, and Vancomycin. Elevated left lower extremity while at rest. Heel-touch weight bearing for now when transferring to the bathroom. Will decide further activity restrictions postop. (3) Bacteremia: Code(s): R78.81 - Bacteremia Status: Acute Assessment and Plan: Blood cultures from 04/17 showed 1/2 bottles growing gram positive cocci clusters. Continue IV antibiotics. (4) Diabetes: Qualifiers: Diabetes mellitus type: type 2 Diabetes mellitus shellfish manager insulin use: without usp use Diabetes mellitus complication status: with hyperglycemia Qualified Code(s): E11.65 - Type 2 diabetes mellitus with hyperglycemia Code(s): E11.9 - Type 2 diabetes mellitus without complications Status: Acute Assessment and Plan: Newly diagnosed diabetes with hemoglobin A1C 13.1 on admission. Hospitalist managing. Discussed with the patient the importance of glycemic control in the setting of a foot infection. She would benefit from a consultation for the certified adaptive physical educator prior to discharge. Plan I have discussed the patient's case and plan of care with Dr. Dominique. Thank you for allowing us to see the patient in consultation and we will continue to follow along with you. History of Present Illness Consult details Consult date: 04/18/24 Reason for consult: other (Diabetic left foot infection) Requesting physician: Nkechi Tucker APRN Narrative: This is a 63-year-old woman who we have been asked to see in surgical consultation for diabetic left foot wound. She presented to [place] ED yesterday due to left foot pain, swelling, and redness. She reports walking through her house barefoot a week ago. She felt a cut on the bottom of her foot and thought she stepped on something sharp. She looked at the bottom of her foot and noticed some bleeding and a small puncture wound just over the first metatarsal head on the plantar aspect of her left foot. She washed it with h ydrogen peroxide and covered it with a bandage. Over the next 2 days, she noticed some white discoloration of the skin around the puncture wound. She called her primary care office and was able to be seen at the [facility] last . By the time she was seen in the office, she began to notice some redness and swelling of her left foot on the dorsal aspect of the foot. She was provided the Tdap vaccination and had an outpatient x-ray of the left foot, which was negative for osteomyelitis. They also ordered a wound culture. She was started on doxycycline, which she reports taking as prescribed. Over the next few days, she reports the redness and swelling progressed rather than improving with antibiotics. She began to have more pain in her left foot and felt it was painful to ambulate. She called the clinic back in a instructed her to give the antibiotic a few days. Yesterday, she noticed some discoloration at the base of the dorsal aspect of the great toe and decided to present to [place] ED for evaluation. [place] [address], sodium 133, anion gap 14, creatinine 1.03, glucose 271. She was treated with IV antibiotics at [place]. Left foot CT showed a puncture wound plantar to the head of the first metatarsal with small region of underlying phlegmon exchange without organized abscess, retained foreign body, soft tissue gas, or associated osteomyelitis. She was transferred to [facility] for surgical evaluation. She has been started on IV cefepime, metronidazole, and vancomycin. The wound culture from 04/14/2024 is growing group B Streptococcus. She had blood cultures drawn yesterday with 1 of 2 bottles showing growth of gram positive cocci clusters. Hemoglobin A1c is 13.1 on admission. She denies any history of diabetes. Review of Systems Review of Systems: All systems reviewed & are unremarkable except as noted in HPI and below PMFSH Past Medical History Medical History History of chicken pox History of shingles Migraines Surgical History Surgical History H/O oral surgery Social History Social History Smoking status: Never smoker Tobacco type: cigarettes Second hand tobacco smoke exposure: No Alcohol intake: never Alcohol use details: Allergy to beer Substance use: never Substance use type: does not use Do You Feel Safe in your Home?: Yes Lack of Transportation: No Lack of Food: Never True Current Housing: I Have Housing Concerned About Future Housing: No Difficulty Paying Gas/Electric Bills: No Difficulty Paying for Meds: No Currently Unemployed: No Education: High School Diploma/GED Difficulty w/ Childcare or Family Care: No Spiritual care concerns: No Meds Home Medications and Allergies Home Medications Medication Instructions Recorded Confirmed Type No Home Medications 04/17/24 04/17/24 History Allergies Allergy/AdvReac Type Severity Reaction Status Date / Time amoxicillin Allergy Intermediate unknown Verified 04/14/24 10:04 erythromycin base Allergy Intermediate unknown Verified 04/14/24 10:04 Sulfonamides Allergy Intermediate unknown Uncoded 04/14/24 10:04 Vital Signs Vital Signs - 24 hr 04/17/24 22:00 04/18/24 00:25 04/17/24 22:15 Temperature 96.8 F L 97.1 F L Pulse Rate 71 73 Respiratory Rate 16 16 Blood Pressure 176/55 H 143/69 H Pulse Oximetry 97 98 Oxygen Delivery Room Air 04/18/24 05:03 04/18/24 04:37 Temperature 97.1 F L Pulse Rate 71 72 Respiratory Rate 16 Blood Pressure 144/63 H Pulse Oximetry 98 Oxygen Delivery Exam Const: General: comfortable and no acute distress Nutritional Appearance: average body habitus Orientation/consciousness: patient oriented x3 HENMT: Head: normocephalic and atraumatic Ears: hearing grossly normal bilaterally Eyes: General: appearance normal, both eyes and all related structures Pupils: Equal, round and reactive pupils present Neck: Neck: normal visual inspection and full ROM Resp: Effort & Inspection: no respiratory distress Auscultation: clear to auscultation bilaterally Cardio: Rate: regular rate Rhythm: regular rhythm GI: Inspection: non-distended GI Palp: Yes Soft to palpation, No Tenderness to palpation present (GI), No Guarding due to palpation present (GI) and No Rebound tenderness present Percussion: Yes normal to percussion Auscultation: normal bowel sounds Skin: General skin exam: normal color Neuro: General: moves all extremities and no focal motor deficits Speech: normal speech Motor exam (neuro): 5/5 motor strength present throughout Extrem: Right upper extremity: normal to inspection Left upper extremity: normal to inspection Right lower extremity: normal to inspection and foot Details: vascular exam Details: dorsalis pedis pulse present and posterior tibial pulse present Left lower extremity: lower leg Details: erythema and pitting edema Details: 2+ and foot Details: toes with normal ROM, edema, puncture wound (Plantar foot over first metatarsal head) and vascular exam Details: dorsalis pedis pulse present, posterior tibial pulse present and normal capillary refill Other: There is a puncture wound on the plantar left foot over the 1st metatarsal head with purulent drainage and tenderness, when probing this small opening, I did not probe to bone. There is surrounding erythema that is diffuse across the distal half of the plantar foot and extending up over the entire great toe and across the entire dorsal aspect of the foot. The erythema and edema extends about longterm up the left lower leg. The great toe is swollen with peeling skin and a dusky purple area at the base of the great toe and towards the webbing between the 1st and 2nd toe that is blistering with fluid beneath the superficial skin. The 2nd through 5th toes are not affected and appear normal in color with no wounds. Psych: Mental Status: mental status grossly normal Attitude: cooperative Insight: Good insight present (Psych) Judgement: Good judgement present (Psych) Results Labs 04/18/24 10:26 04/18/24 05:22 Labs: Abnormal lab results 04/18/24 04/18/24 Range/Units 05:22 08:13 Sodium 133 L (137-145) mmol/L Creatinine 0.50 L (0.7-1.0) mg/dL Glucose 260 H (65-110) mg/dL POC Capillary Glucose 223 H (65-105) mg/dl C-Reactive Protein 7.1 H (<1.0) mg/dL Albumin 3.2 L (3.5-5.1) g/dL Diabetes panel 04/18/24 Range/Units 05:22 Sodium 133 L (137-145) mmol/L Potassium 4.4 (3.4-5.0) mmol/L Chloride 98 (98-107) mmol/L Carbon Dioxide 25 (22-30) mmol/L BUN 15 (7-17) mg/dL Creatinine 0.50 L (0.7-1.0) mg/dL Glucose 260 H (65-110) mg/dL Calcium 8.4 (8.4-10.2) mg/dL AST 18 (14-36) U/L ALT 12 (6-35) U/L Alkaline Phosphatase 66 (38-126) U/L Total Protein 7.0 (6.3-8.2) g/dL Albumin 3.2 L (3.5-5.1) g/dL Calcium panel 04/18/24 Range/Units 05:22 Calcium 8.4 (8.4-10.2) mg/dL Albumin 3.2 L (3.5-5.1) g/dL Pituitary panel 04/18/24 Range/Units 05:22 Sodium 133 L (137-145) mmol/L Potassium 4.4 (3.4-5.0) mmol/L Chloride 98 (98-107) mmol/L Carbon Dioxide 25 (22-30) mmol/L BUN 15 (7-17) mg/dL Creatinine 0.50 L (0.7-1.0) mg/dL Glucose 260 H (65-110) mg/dL Calcium 8.4 (8.4-10.2) mg/dL Adrenal panel 04/18/24 Range/Units 05:22 Sodium 133 L (137-145) mmol/L Potassium 4.4 (3.4-5.0) mmol/L Chloride 98 (98-107) mmol/L Carbon Dioxide 25 (22-30) mmol/L BUN 15 (7-17) mg/dL Creatinine 0.50 L (0.7-1.0) mg/dL Glucose 260 H (65-110) mg/dL Calcium 8.4 (8.4-10.2) mg/dL Total Bilirubin 0.5 (0.2-1.3) mg/dL AST 18 (14-36) U/L ALT 12 (6-35) U/L Alkaline Phosphatase 66 (38-126) U/L Total Protein 7.0 (6.3-8.2) g/dL Albumin 3.2 L (3.5-5.1) g/dL All other labs normal. Imaging Additional studies: EXAMINATION: CT foot LT w con DATE: 04/17/2024 10:44 INDICATION: Left foot laceration with swelling and concern for osteomyelitis. TECHNIQUE: High resolution computed tomography (CT) of the left foot was perfor med with 100 mL Omnipaque-350 intravenous contrast. Additional sagittal and coronal reconstructions were performed. Automated exposure control and iterative reconstruction technique were employed. The dose-length product was 397.35 mGy- cm. COMPARISON: None FINDINGS: There is an approximately 2 x 2 x 1.5 cm fluid attenuation region of likely phlegmonous change without an organized peripheral enhancing wall to suggest abscess located deep to a focal small low-density puncture wound plantar to the tibial sesamoid of the first metatarsal. No evident radiopaque foreign body or soft tissue gas. No cortical erosion to suggest osteomyelitis. Bone alignment is normal. No fracture. 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 No joint effusions to suggest a septic arthritis. Soft tissue swelling with subcutaneous edema extending over the dorsum of the foot. IMPRESSION: 1. Puncture wound plantar to the head of the first metatarsal with small region of underlying phlegmonous change without organized abscess, retained foreign body, soft tissue gas or associated osteomyelitis.
[2024-04-18 10:32] LABS: Hematocrit 35.2 % (37.0-47.0); Hemoglobin 11.8 g/dL (12.0-15.0); Mean Corpuscular HGB Conc 33.5 g/dl (32-36); Mean Corpuscular Volume 83.6 fl (80-100); Mean Platelet Volume 9.4 fl (7.4-10.4); Platelet Count Result 231 k/mm3 (150-375); Red Blood Count 4.21 M/mm3 (4.2-5.4); White Blood Count 10.7 K/mm3 (4.5-10.0)
[2024-04-18 10:44] LABS: INR 1.1; Prothrombin Time 14.6 Seconds (11.1-14.7)
[2024-04-18] MEDS: SODIUM CHLORIDE 0.9% IV 1,000 ML 100 ML IV CONT (11:15)
--- NOTE | 2024-04-18 11:24 | PC.NURSE ---
Dr Valencia notified of positive blood cultures faxed over from [place]. Results placed on chart.
[2024-04-18 12:00] LABS: Glucose Point of Care 190 mg/dl (65-105)
--- NOTE | 2024-04-18 13:23 | WPDHPUPDATE1 ---
History and Physical Update Update Date/Time: 04/18/24 13:23 History and Physical has been reviewed, including an updated exam of the patient. There are NO changes in the patient's condition. Risks, benefits, and alternatives have been discussed and questions answered. Patient agrees to proceed with procedure.
[2024-04-18 15:15] LABS: Glucose Point of Care 187 mg/dl (65-105)
--- NOTE | 2024-04-18 15:43 | P.PNAN_ITS ---
Anes - Initial Pre Proc Eval Procedure: Operation Date: 04/18/24 15:45 Proposed Procedures p Incision And Drainage Left Foot Abscess - Nikita Dominique MD Date/Time: 04/18/24 15:43 Surgeon: Sandy Delgadillo MD Pre Op Diagnosis: Diabetic Foot Patient Data Age: 63 Gender: F Height: 1.73 m Weight: 84.1 kg Last Vital Signs Temp 37.2 C 04/18/24 15:03 Pulse 77 04/18/24 15:03 Resp 18 04/18/24 15:03 BP 154/63 H 04/18/24 15:03 Pulse Ox 100 04/18/24 15:03 O2 Del Method Room Air 04/18/24 15:03 Allergies Allergy/AdvReac Type Severity Reaction Status Date / Time amoxicillin Allergy Intermediate unknown Verified 04/14/24 10:04 erythromycin base Allergy Intermediate unknown Verified 04/14/24 10:04 Sulfonamides Allergy Intermediate unknown Uncoded 04/14/24 10:04 Home Medications Medication Instructions Recorded Confirmed Type No Home Medications 04/17/24 04/17/24 History Laboratory Tests 04/18/24 04/18/24 04/18/24 05:22 08:13 10:26 WBC 10.7 H K/mm3 (4.5-10.0) RBC 4.21 M/mm3 (4.2-5.4) Hgb 11.8 L g/dL (12.0-15.0) Hct 35.2 L % (37.0-47.0) MCV 83.6 fl (80-100) MCH 28.0 pg (26-34) MCHC 33.5 g/dl (32-36) RDW 12.0 % (11.5-14.5) Plt Count 231 k/mm3 (150-375) MPV 9.4 fl (7.4-10.4) PT 14.6 Seconds (11.1-14.7) INR 1.1 Sodium 133 L mmol/L (137-145) Potassium 4.4 mmol/L (3.4-5.0) Chloride 98 mmol/L (98-107) Carbon Dioxide 25 mmol/L (22-30) Anion Gap 10 mmol/L (4-12) BUN 15 mg/dL (7-17) Creatinine 0.50 L mg/dL (0.7-1.0) Estim Creat Clear Calc 109 ml/min Estimated GFR > 60 (59 - ) Glucose 260 H mg/dL (65-110) POC Capillary Glucose 223 H mg/dl (65-105) Calcium 8.4 mg/dL (8.4-10.2) Total Bilirubin 0.5 mg/dL (0.2-1.3) AST 18 U/L (14-36) ALT 12 U/L (6-35) Alkaline Phosphatase 66 U/L (38-126) C-Reactive Protein 7.1 H mg/dL (<1.0) Total Protein 7.0 g/dL (6.3-8.2) Albumin 3.2 L g/dL (3.5-5.1) Procalcitonin 0.1 ng/mL 04/18/24 04/18/24 11:52 15:11 WBC RBC Hgb Hct MCV MCH MCHC RDW Plt Count MPV PT INR Sodium Potassium Chloride Carbon Dioxide Anion Gap BUN Creatinine Estim Creat Clear Calc Estimated GFR Glucose POC Capillary Glucose 190 H mg/dl 187 H mg/dl (65-105) (65-105) Calcium Total Bilirubin AST ALT Alkaline Phosphatase C-Reactive Protein Total Protein Albumin Procalcitonin Patient hx anesthesia problems: none Family hx anesthesia problems: none Results Review: All pre-operative results and documents have been reviewed as part of the pre- operative evaluation. [facility] Past Medical History Medical History (Updated 04/18/24 @ 15:40 by Marvin Renner DO) Diabetes History of chicken pox History of shingles Migraines Surgical History Surgical History H/O oral surgery Social History Social History Smoking status: Never smoker Tobacco type: cigarettes Second hand tobacco smoke exposure: No Alcohol intake: never Alcohol use details: Allergy to beer Substance use: never Substance use type: does not use Do You Feel Safe in your Home?: Yes Lack of Transportation: No Lack of Food: Never True Current Housing: I Have Housing Concerned About Future Housing: No Difficulty Paying Gas/Electric Bills: No Difficulty Paying for Meds: No Currently Unemployed: No Education: High School Diploma/GED Difficulty w/ Childcare or Family Care: No Spiritual care concerns: No Anes - Eval Final PreProcedure Day of Procedure 04/18/24 15:43 Patient weight: overweight Heart: regular rate and rhythm Lungs: clear to auscultation Airway: Mallampati scale class II Neurological: alert and oriented Last oral intake: >/= 8 hours ASA classification: III Emergent: yes Anesthetic plan: proceed Anesthesia type and monitoring: general GIVS and standard monitoring Results Review: All pre-operative results and documents have been reviewed as part of the pre- operative evaluation. Informed Consent: The patient's anesthetic plan and its attendant risks and benefits were discussed with the patient/family/POA. Questions were solicited and answers provided to the satisfaction of the patient/family/POA.
[2024-04-18] MEDS: LIDO 1%/EPINEPHRINE 1:100,000 50 ML VIAL INFILTRATE (17:37)
[2024-04-18] MEDS: BUPivacaine HCL 0.5% 10 ML AMP 5 ML INFILTRATE (17:37)
[2024-04-18] MEDS: LACTATED RINGERS 1,000 ML 30 ML IV CONT ×2 (17:45)
[2024-04-18 17:53] LABS: Glucose Point of Care 178 mg/dl (65-105)
[2024-04-18] MEDS: ONDANSETRON INJ 4 MG/2 ML VIAL IV PUSH (17:59)
--- NOTE | 2024-04-18 18:04 | P.OP_ITS ---
Procedure Note - Detailed Date of Procedure 04/18/24 Pre-op Diagnosis Left diabetic foot ulcer with abscess and cellulitis. Post-op Diagnosis Same Procedure Performed Complex incision and drainage of diabetic left foot abscess. Surgeon Nikita Dominique MD Manager Contract LUCINA Younger Anesthesia General Indications Patient is a 63-year-old female who presented outside hospital with left foot infection. She appeared to have an abscess with drainage from a opening in the left forefoot on the plantar surface. There was redness and swelling around the 1st MTP joint on the left. CT of the foot revealed an abscess but no evidence of bone destruction to suggest osteomyelitis. She was transferred outside facility to [facility] for further management. She presents now for incision and drainage of the left forefoot diabetic abscess. Findings The patient had a 4mm opening on the plantar surface of the left forefoot over the 1st metatarsophalangeal joint. It tracked laterally in the foot to the interspace between the 1st and 2nd metatarsal and toes. It also tracked medially around the metatarsophalangeal joint to the dorsal surface of the left forefoot. Description of Procedure After informed consent was obtained patient brought to the operating room she was placed supine position and general endotracheal anesthesia was administered. The left lower extremity from the mid calf region distally to the toes was then prepped and draped in the usual sterile fashion circumferentially. A time-out was then performed correctly identifying the patient as well as procedure to be performed. She was already on scheduled IV antibiotics. Site marking was verified. I then placed a long tonsil clamp through the opening in the plantar surface of the foot and it extended into the tract and leading to the interspace between the 1st and 2nd toes. I spread the clamp to widely drain the abscess in this region. I made a counter incision in the skin between the 1st and 2nd toes with a scalpel. I then obtained a swab culture of the abscess cavity and tract and sent that to microbiology for Gram stain, aerobic, and anaerobic cultures. Tract also went medially around the forefoot the dorsal surface. This was a more superficial tract and I made a counter incision in this area utilizing a scalpel as well. I then irrigated both these tracts out with copious amounts sterile saline solution. I irrigated to the was clear. I then placed quarter- inch Crystal drains between these openings into the 2 tracts. The Crystal drains were placed a loop configuration and sutured to themselves with 3-0 nylon sutures. The foot was then cleaned and then was dressed with fluffed 4x4 gauze over the wounds and then wrapped with Kerlix gauze and then with an Yanick wrap. The patient tolerated the procedure well no complications. All sponges, needles, and instrument counts were correct at the end procedure. EBL was _10__cc. The patient was awakened and taken to recovery in stable and satisfactory condition. Implants None Estimated Blood Loss 10 Drains Yes (Half-inch Crystal drains x2 left forefoot) Packing No Pathology Other (Abscess swab culture sent to microbiology) Complications No immediate complications Condition Stable Disposition PACU [facility] Billing Surgery - Charge Forward: Surgery Billing
[2024-04-18] MEDS: diphenhydrAMINE HCl INJ 50 MG/ML VIAL 25 MG IV PUSH (18:21)
[2024-04-18] MEDS: SCOPOLAMINE 1 MG PATCH 1 PATCH TRANSDERM (18:42)
[2024-04-18] MEDS: INSULIN GLARGINE (*BKC) 100 UNITS/ML 13 UNITS SUB-Q (20:37)
[2024-04-18] MEDS: VANCOMYCIN 1,500 MG/NS 500 ML 1,500 MG/500 ML BAG 125 MG IVPB (21:31)
[2024-04-19 01:15] VITALS: BP 149/70; PULSE 75; RESP 20; TEMP 36.3; O2SAT 98
[2024-04-19 03:04] LABS: Glucose Point of Care 236 mg/dl (65-105)
[2024-04-19] MEDS: ONDANSETRON INJ 4 MG/2 ML VIAL IV PUSH ×2 (03:25→20:47)
[2024-04-19] MEDS: CEFEPIME 2 GM/NS 50 ML 2 GM/50 ML BAG IVPB ×2 (05:49→17:20)
[2024-04-19] MEDS: METOCLOPRAMIDE HCL INJ 10 MG/2 ML VIAL IV PUSH (05:49)
[2024-04-19 06:00] VITALS: BP 153/73; PULSE 73; RESP 20; TEMP 36.4; O2SAT 98
--- NOTE | 2024-04-19 08:10 | WPDANESPN ---
Anes - Prog Note Post-Op Date/Time: 04/19/24 08:10 Cardiovascular status: normal Respiratory status: normal Airway patency: baseline Mental status: baseline Post-Op hydration status: normal Vital Signs: Last Vital Signs Temp 36.4 C L 04/19/24 06:00 Pulse 73 04/19/24 06:00 Resp 20 04/19/24 06:00 BP 153/73 H 04/19/24 06:00 Pulse Ox 98 04/19/24 06:00 O2 Del Method Room Air 04/18/24 20:00 O2 Flow Rate 6 04/18/24 17:45 Pain Score (VAS): 07/25 I/O: Intake & Output 04/18/24 04/19/24 04/19/24 23:59 07:59 15:59 Intake Total 750 850 Output Total 600 Balance 750 250 Laboratory Tests 04/18/24 10:26 04/18/24 05:22 04/18/24 04/18/24 04/18/24 08:13 10:26 11:52 WBC 10.7 H RBC 4.21 Hgb 11.8 L Hct 35.2 L MCV 83.6 MCH 28.0 MCHC 33.5 RDW 12.0 Plt Count 231 MPV 9.4 PT 14.6 INR 1.1 POC Capillary Glucose 223 H 190 H 04/18/24 04/18/24 04/18/24 15:11 17:50 21:23 WBC RBC Hgb Hct MCV MCH MCHC RDW Plt Count MPV PT INR POC Capillary Glucose 187 H 178 H 236 H Post-procedural complaints: none Patient Feedback: Patient satisfied with anesthetic care.
[2024-04-19 08:13] LABS: Glucose Point of Care 192 mg/dl (65-105)
[2024-04-19 08:25] LABS: Basophils Absolute Auto 0.1 K/mm3 (0.0-0.1); Eosinophils Absolute Auto 0.1 K/mm3 (0-0.3); Eosinophils Percent Auto 0.9 % (0-4.4); Hematocrit 35.7 % (37.0-47.0); Hemoglobin 11.7 g/dL (12.0-15.0); Immature Granulocyte Absolute 0.08 K/mm3 (0.00-0.031); Immature Granulocyte Percent A 0.8 % (0-0.5); Lymphocytes Absolute Auto 0.58 K/mm3 (0.9-3.2); Mean Corpuscular HGB Conc 32.8 g/dl (32-36); Mean Corpuscular Hemoglobin 27.7 pg (26-34); Mean Corpuscular Volume 84.4 fl (80-100); Mean Platelet Volume 9.2 fl (7.4-10.4); Monocytes Absolute Auto 0.6 K/mm3 (0.1-0.6); Neutrophils Absolute Auto 8.3 K/mm3 (1.3-6.7); Neutrophils Percent Auto 85.3 % (45.5-73.1); Platelet Count Result 244 k/mm3 (150-375); Red Blood Count 4.23 M/mm3 (4.2-5.4); White Blood Count 9.7 K/mm3 (4.5-10.0)
[2024-04-19 08:33] LABS: Estimated CRCL calculation 109 ml/min; Estimated Glomerular Filt Rate > 60
--- NOTE | 2024-04-19 08:50 | P.PNIM_ITS ---
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 insulin use: without termite renewal inspector use Diabetes mellitus type: type 2 Qualified Code(s): E11.65 - Type 2 diabetes mellitus with hyperglycemia Code(s): E11.9 - Type 2 diabetes mellitus without complications Status: Acute (2) Diabetic foot ulcer: Qualifiers: Diabetes mellitus type: type 2 Diabetic foot ulcer location: toe Laterality: left Non-pressure ulcer stage: unspecified non-pressure ulcer stage Qualified Code(s): E11.621 - Type 2 diabetes mellitus with foot ulcer; L97.529 - Non-pressure chronic ulcer of other part of left foot with unspecified severit y Code(s): E11.621 - Type 2 diabetes mellitus with foot ulcer; L97.509 - Non-pressure chronic ulcer of other part of unspecified foot with unspecified severity Status: Acute (3) Cellulitis of left foot: Code(s): L03.116 - Cellulitis of left lower limb Status: Acute Plan 63 y/o F presents here with wound to left foot with PMH of shingles, migraines, presented to [place] [facility] for further evaluation of left foot wound and left leg redness.? She initially believes wound developed after she was walking barefoot in her apartment and she stepped on something sharp causing a cut. ?After injury she cleaned the wound with peroxide and placed a bandage.? Initially sought care with her PCP started her on doxycycline on 04/14, update her Tdap, and an x-ray was obtained.? Foot XR on 04/14 was unremarkable. ?However, despite ABX initiation the area has continued to increase in redness, warmth, and tenderness.? Now having sloughing of the skin and scant yellow drainage.? Diabetic foot ulcer: Qualifiers: Diabetes mellitus type: type 2 Diabetic foot ulcer location: toe Laterality: left Non-pressure ulcer stage: unspecified non-pressure ulcer stage Qualified Code(s): E11.621 - Type 2 diabetes mellitus with foot ulcer; L97.529 - Non-pressure chronic ulcer of other part of left foot with unspecified severity Code(s): E11.621 - Type 2 diabetes mellitus with foot ulcer; L97.509 - Non-pressure chronic ulcer of other part of unspecified foot with unspecified severity Status: Acute Assessment and Plan: - CT foot: 1. Puncture wound plantar to the head of the first metatarsal with small region of underlying phlegmonous change without organized abscess, retained foreign body, soft tissue gas or associated osteomyelitis. - wound documented via photo at beginning of admission, plan to update. on vancomycin IV, cefepime IV, and Flagyl p.o - lactic not completed during initial evaluation, add procalcitonin and CRP - generally surgery consulted for possible surgical debridement versus amputation, awaiting formal recs - analgesics and antipyretics p.r.n. - wound nurse consulted S/P Complex incision and drainage of diabetic left foot abscess 04/18 Pending wound culture, patient is afebrile over the night, continue current antibiotics, change Flagyl to IV, patient cannot tolerate oral Flagyl Cellulitis of left foot: Code(s): L03.116 - Cellulitis of left lower limb Status: Acute Assessment and Plan: see above Bacteremia Blood culture in [place] grows Gram-positive cocci Repeat blood culture Uncontrolled type 2 diabetes - initial glucose 271 and A1C 13% - started on Lantus 13 units HS - hypoglycemia protocol - POC blood glucose ACHS - correct regimen ordered - moderate dose TIDWM - bricklayer tender and dietitian consulted 04/18 glucose is not controlled and target Increase Lantus 20 units q.h.s., start aspart 4 u before each meal, continue sliding scale motion sickness nausea and vomiting prior to leaving [facility] hospital. Given 1 dose of Zofran with minimal relief. Hyponatremia Mild hyponatremia Diet: diabetic GI Prophylaxis: not currently indicated DVT Prophylaxis: Lovenox Lines: peripheral Code Status: full code Subjective Date/time seen: 04/19/24 08:50 Interval history: Patient feels better today, left foot pain is tolerable, denies abdomen pain, chest pain, shortness of breath. Patient felt nauseous up to taking Flagyl p.o.. Afebrile, blood pressure stable Exam Narrative: GENERAL: Pleasant, in no acute distress. Well-nourished. - EYES: EOMI. Anicteric. - HENT: Moist mucous membranes. - LUNGS: Clear to auscultation bilateral ly, no wheezing, rhonchi, or rales. - CARDIOVASCULAR: Regular rate and rhyth m. No murmur. No JVD. - ABDOMEN: Soft, non-tender and non-dist ended. No palpable masses. - EXTREMITIES: No edema. Peripheral puls es 2+. Non-tender. - NEUROLOGIC: No focal neurological defi cits. CN II-XII grossly intact. - PSYCHIATRIC: Awake, Alert and oriented x 3. Appropriate mood and affect. - SKIN: Left foot nonhealing ulcer, red ness swelling of the left leg is improving, ulcer of the left foot status post I and D, dressings dry and clean - LYMPH: No cervical lymphadenopathy. Objective Data Vital Signs Vital Signs: Vital Signs - 24 hr 04/18/24 14:00 04/18/24 15:03 04/18/24 17:45 Temperature 97.9 F 98.9 F 97.2 F L Pulse Rate 70 77 72 Respiratory Rate 18 18 12 Blood Pressure 132/62 154/63 H 95/56 L Pulse Oximetry 99 100 98 Oxygen Delivery Room Air Simple Face Mask Oxygen Flow Rate 6 04/18/24 18:00 04/18/24 18:15 04/18/24 18:30 Temperature Pulse Rate 72 74 71 Respiratory Rate 14 16 14 Blood Pressure 129/54 L 146/55 H 138/57 L Pulse Oximetry 95 96 93 Oxygen Delivery Room Air Room Air Room Air Oxygen Flow Rate 04/18/24 18:45 04/18/24 18:59 04/18/24 20:00 Temperature Pulse Rate 72 71 71 Respiratory Rate 14 14 14 Blood Pressure 135/56 L 138/62 Pulse Oximetry 93 95 95 Oxygen Delivery Room Air Room Air Room Air Oxygen Flow Rate 04/18/24 22:00 04/19/24 01:15 04/19/24 06:00 Temperature 97.4 F L 97.4 F L 97.5 F L Pulse Rate 69 75 73 Respiratory Rate 20 20 20 Blood Pressure 166/71 H 149/70 H 153/73 H Pulse Oximetry 98 98 98 Oxygen Delivery Oxygen Flow Rate Intake/Output Intake/Output: Intake & Output 04/17/24 04/17/24 04/18/24 04/19/24 00:59 23:59 23:59 23:59 Intake Total 1070 850 Output Total 600 Balance 1070 250 Meds/Results Medications: Active Medications Generic Name Dose Route Start Last Admin Trade Name Freq PRN Reason Stop Dose Admin Acetaminophen 1,000 mg 04/18/24 19:01 Acetaminophen 500 Mg Tablet PO Q6H PRN Mild Pain (1-3) or Fever Hydrocodone Bitart/Acetaminophen 1 tab 04/18/24 19:01 Hydrocodone/Acetaminophen (*Crx) 5-325 Mg Tablet PO Q4H PRN Pain Rated 4-6 Dextrose 12.5 gm 04/17/24 22:00 Dextrose 50% 25 Gm/50 Ml Syringe IV PUSH PRN PRN Hypoglycemia Protocol Diphenhydramine HCl 25 mg 04/17/24 21:58 04/18/24 18:21 Diphenhydramine Hcl Inj 50 Mg/Ml Vial IV PUSH 25 mg Q6H PRN Administration Nausea And Vomiting Enoxaparin Sodium 40 mg 04/18/24 09:00 04/18/24 08:43 Enoxaparin 40 Mg/0.4 Ml Syringe SUB-Q 40 mg DAILY JOSIE Administration Glucagon 1 mg 04/17/24 22:00 Glucagon For Inj 1 Mg Vial IM PRN PRN Hypoglycemia Protocol Glucose 15 gm 04/17/24 22:00 Glucose Oral Gel 15 Gm Of Glucse In 37.5 Gm Tube PO PRN PRN Hypoglycemia Protocol Dextrose 1,000 mls @ 100 mls/hr 04/17/24 22:00 Dextrose 5% 1,000 Ml IVPB PRN PRN Hypoglycemia Protocol Cefepime HCl 2 gm in 50 mls @ 100 mls/hr 04/18/24 06:00 04/19/24 06:19 Maxipime 2 Gm/Ns 50 Ml IVPB Infused Q12H JOSIE Infusion Vancomycin HCl 1,500 mg in 500 mls @ 250 mls/hr 04/18/24 21:00 04/19/24 01:31 Vancomycin 1,500 Mg/Ns 500 Ml IVPB Infused Q12H JOSIE Infusion Sodium Chloride 1,000 mls @ 100 mls/hr 04/18/24 11:10 04/18/24 11:15 Normal Saline Iv IV CONT 100 mls/hr .Q10H JOSIE Administration Insulin Aspart 3 - 6 units 04/18/24 08:00 04/19/24 08:15 Insulin Aspart (*Bkc) 100 Units/Ml SUB-Q Not Given TIDWM JOSIE Protocol Insulin Glargine 13 units 04/17/24 22:30 04/18/24 20:37 Insulin Glargine (*Bkc) 100 Units/Ml SUB-Q 13 units HS JOSIE Administration Metoclopramide HCl 10 mg 04/18/24 10:09 04/19/24 05:49 Metoclopramide Hcl Inj 10 Mg/2 Ml Vial IV PUSH 10 mg Q6HR PRN Administration Nausea Metronidazole 500 mg 04/17/24 22:25 04/19/24 05:54 Metronidazole 500 Mg Tablet PO Not Given Q8HR JOSIE Morphine Sulfate 2 mg 04/17/24 21:58 Morphine Sulfate (*Crx) 2 Mg/Ml Inj IV PUSH Q4H PRN Pain Rated 7-10 Ondansetron HCl 4 mg 04/18/24 19:01 04/19/24 03:25 Ondansetron Inj 4 Mg/2 Ml Vial IV PUSH 4 mg Q6H PRN Administration Nausea And Vomiting Oxycodone HCl 5 mg 04/18/24 19:01 Oxycodone Hcl (*Crx) 5 Mg Tab Ir PO Q4H PRN Pain Rated 7-10 Labs Labs: Laboratory Results - last 24 hr 04/18/24 04/18/24 04/18/24 10:26 11:52 15:11 WBC 10.7 H RBC 4.21 Hgb 11.8 L Hct 35.2 L MCV 83.6 MCH 28.0 MCHC 33.5 RDW 12.0 Plt Count 231 MPV 9.4 Immature Gran % (Auto) Neut % (Auto) Lymph % (Auto) [place] % (Auto) Eos % (Auto) Baso % (Auto) Lymph # (Auto) [place] # (Auto) Eos # (Auto) Baso # (Auto) Abs Immat Gran (auto) Absolute Neuts (auto) Absolute Nucleated RBC Nucleated RBC % PT 14.6 INR 1.1 Creatinine Estim Creat Clear Calc Estimated GFR POC Capillary Glucose 190 H 187 H 04/18/24 04/18/24 04/19/24 17:50 21:23 08:07 WBC RBC Hgb Hct MCV MCH MCHC RDW Plt Count MPV Immature Gran % (Auto) Neut % (Auto) Lymph % (Auto) [place] % (Auto) Eos % (Auto) Baso % (Auto) Lymph # (Auto) [place] # (Auto) Eos # (Auto) Baso # (Auto) Abs Immat Gran (auto) Absolute Neuts (auto) Absolute Nucleated RBC Nucleated RBC % PT INR Creatinine Estim Creat Clear Calc Estimated GFR POC Capillary Glucose 178 H 236 H 192 H 04/19/24 08:18 WBC 9.7 RBC 4.23 Hgb 11.7 L Hct 35.7 L MCV 84.4 MCH 27.7 MCHC 32.8 RDW 12.0 Plt Count 244 MPV 9.2 Immature Gran % (Auto) 0.8 H Neut % (Auto) 85.3 H Lymph % (Auto) 6.0 L [place] % (Auto) 6.0 Eos % (Auto) 0.9 Baso % (Auto) 1.0 Lymph # (Auto) 0.58 L [place] # (Auto) 0.6 Eos # (Auto) 0.1 Baso # (Auto) 0.1 Abs Immat Gran (auto) 0.08 H Absolute Neuts (auto) 8.3 H Absolute Nucleated RBC 0.000 Nucleated RBC % 0.0 PT INR Creatinine 0.50 L Estim Creat Clear Calc 109 Estimated GFR > 60 POC Capillary Glucose
[2024-04-19 09:23] LABS: Anion Gap 9 mmol/L (4-12); Blood Urea Nitrogen 13 mg/dL (7-17); Calcium 8.2 mg/dL (8.4-10.2); Carbon Dioxide 23 mmol/L (22-30); Chloride 102 mmol/L (98-107); Estimated CRCL calculation 109 ml/min; Estimated Glomerular Filt Rate > 60; Glucose 203 mg/dL (65-110); Sodium 134 mmol/L (137-145)
[2024-04-19] MEDS: ENOXAPARIN 40 MG/0.4 ML SYRINGE SUB-Q (10:03)
[2024-04-19] MEDS: VANCOMYCIN 1,500 MG/NS 500 ML 1,500 MG/500 ML BAG 250 MG IVPB ×2 (10:26→22:18)
[2024-04-19 12:26] LABS: Glucose Point of Care 163 mg/dl (65-105)
[2024-04-19] MEDS: INSULIN ASPART (*BKC) 100 UNITS/ML SUB-Q ×2 (12:32→17:19)
[2024-04-19 14:00] VITALS: BP 145/59; PULSE 69; RESP 18; TEMP 36.9; O2SAT 98
[2024-04-19] MEDS: SODIUM CHLORIDE 0.9% IV 1,000 ML 100 ML IV CONT (14:41)
--- NOTE | 2024-04-19 15:42 | PM.PNGS ---
Progress Note: A&P Assessment and Plan (1) Foot abscess, left: Code(s): L02.612 - Cutaneous abscess of left foot Status: Acute Assessment and Plan: Status post incision and drainage of left foot abscess. Two [place] drains in place. Erythema and swelling improved today. Continue dry gauze dressing changes and cover with Yanick wraps. Continue IV antibiotics. Physical therapy has been ordered. Okay to ambulate with heel touch weight-bearing on the left lower extremity. (2) Diabetic infection of left foot: Code(s): E11.628 - Type 2 diabetes mellitus with other skin complications; L08.9 - Local infection of the skin and subcutaneous tissue, unspecified Status: Acute Assessment and Plan: Continue IV antibiotics. (3) Bacteremia: Code(s): R78.81 - Bacteremia Status: Acute Assessment and Plan: Blood cultures with growth of Staphylococcus epidermidis. Continue IV antibiotics. (4) Diabetes: Qualifiers: Diabetes mellitus type: type 2 Diabetes mellitus customer management specialist insulin use: without senior care use Diabetes mellitus complication status: with hyperglycemia Qualified Code(s): E11.65 - Type 2 diabetes mellitus with hyperglycemia Code(s): E11.9 - Type 2 diabetes mellitus without complications Status: Acute Assessment and Plan: Newly diagnosed diabetes with hemoglobin A1C 13.1 on admission. Hospitalist managing. It is important to aim for tight glycemic control. Plan I have discussed the patient's case and plan of care with Dr. Dominique. Subjective Subjective Date/Time Seen: 04/19/24 15:42 Patient reports: no new complaints and afebrile Interval history: Still with some mild pain in the left foot. No acute events overnight. White blood cell count normal. Exam Const: General: comfortable and no acute distress Orientation/consciousness: patient oriented x3 Skin: Other: Left foot dressing removed. There are [address] [place] [address] Overall erythema and swelling has improved. No purulent drainage. Applied new gauze dressing and covered with Yanick wraps. Objective Data Vital Signs Vital Signs: Vital Signs - 24 hr 04/18/24 17:45 04/18/24 18:00 04/18/24 18:15 Temperature 97.2 F L Pulse Rate 72 72 74 Respiratory Rate 12 14 16 Blood Pressure 95/56 L 129/54 L 146/55 H Pulse Oximetry 98 95 96 Oxygen Delivery Simple Face Mask Room Air Room Air Oxygen Flow Rate 6 04/18/24 18:30 04/18/24 18:45 04/18/24 18:59 Temperature Pulse Rate 71 72 71 Respiratory Rate 14 14 14 Blood Pressure 138/57 L 135/56 L 138/62 Pulse Oximetry 93 93 95 Oxygen Delivery Room Air Room Air Room Air Oxygen Flow Rate 04/18/24 20:00 04/18/24 22:00 04/19/24 01:15 Temperature 97.4 F L 97.4 F L Pulse Rate 71 69 75 Respiratory Rate 14 20 20 Blood Pressure 166/71 H 149/70 H Pulse Oximetry 95 98 98 Oxygen Delivery Room Air Oxygen Flow Rate 04/19/24 06:00 04/19/24 10:39 04/19/24 11:07 Temperature 97.5 F L Pulse Rate 73 Respiratory Rate 20 Blood Pressure 153/73 H Pulse Oximetry 98 Oxygen Delivery Room Air Room Air Oxygen Flow Rate 04/19/24 14:00 Temperature 98.4 F Pulse Rate 69 Respiratory Rate 18 Blood Pressure 145/59 H Pulse Oximetry 98 Oxygen Delivery Oxygen Flow Rate Intake/Output Intake/Output: Intake & Output 04/17/24 04/17/24 04/18/24 04/19/24 00:59 23:59 23:59 23:59 Intake Total 2070 970 Output Total 900 Balance 2070 70 Meds/Results Medications: Active Medications Generic Name Dose Route Start Last Admin Trade Name Freq PRN Reason Stop Dose Admin Acetaminophen 1,000 mg 04/18/24 19:01 Acetaminophen 500 Mg Tablet PO Q6H PRN Mild Pain (1-3) or Fever Hydrocodone Bitart/Acetaminophen 1 tab 04/18/24 19:01 Hydrocodone/Acetaminophen (*Crx) 5-325 Mg Tablet PO Q4H PRN Pain Rated 4-6 Dextrose 12.5 gm 04/17/24 22:00 Dextrose 50% 25 Gm/50 Ml Syringe IV PUSH PRN PRN Hypoglycemia Protocol Diphenhydramine HCl 25 mg 04/17/24 21:58 04/18/24 18:21 Diphenhydramine Hcl Inj 50 Mg/Ml Vial IV PUSH 25 mg Q6H PRN Administration Nausea And Vomiting Enoxaparin Sodium 40 mg 04/18/24 09:00 04/19/24 10:03 Enoxaparin 40 Mg/0.4 Ml Syringe SUB-Q 40 mg DAILY JOSIE Administration Glucagon 1 mg 04/17/24 22:00 Glucagon For Inj 1 Mg Vial IM PRN PRN Hypoglycemia Protocol Glucose 15 gm 04/17/24 22:00 Glucose Oral Gel 15 Gm Of Glucse In 37.5 Gm Tube PO PRN PRN Hypoglycemia Protocol Dextrose 1,000 mls @ 100 mls/hr 04/17/24 22:00 Dextrose 5% 1,000 Ml IVPB PRN PRN Hypoglycemia Protocol Cefepime HCl 2 gm in 50 mls @ 100 mls/hr 04/18/24 06:00 04/19/24 06:19 Maxipime 2 Gm/Ns 50 Ml IVPB Infused Q12H JOSIE Infusion Sodium Chloride 1,000 mls @ 100 mls/hr 04/18/24 11:10 04/19/24 14:41 Normal Saline Iv IV CONT 100 mls/hr .Q10H JOSIE Administration Vancomycin HCl 1,500 mg in 500 mls @ 250 mls/hr 04/19/24 10:00 04/19/24 10:26 Vancomycin 1,500 Mg/Ns 500 Ml IVPB 250 mls/hr Q12H JOSIE Administration Metronidazole 500 mg in 100 mls @ 100 mls/hr 04/19/24 22:00 Flagyl 500 Mg/Iso Soln 100 Ml IVPB Q8H [facility] Insulin Aspart 3 - 6 units 04/18/24 08:00 04/19/24 12:28 Insulin Aspart (*Bkc) 100 Units/Ml SUB-Q Not Given TIDWM [facility] Protocol Insulin Aspart 4 units 04/19/24 12:00 04/19/24 12:32 Insulin Aspart (*Bkc) 100 Units/Ml 0.05 units/kg (4 units) 4 units SUB-Q Administration TIDWM [facility] Insulin Glargine 20 units 04/19/24 21:00 Insulin Glargine (*Bkc) 100 Units/Ml SUB-Q HS [facility] Metoclopramide HCl 10 mg 04/18/24 10:09 04/19/24 05:49 Metoclopramide Hcl Inj 10 Mg/2 Ml Vial IV PUSH 10 mg Q6HR PRN Administration Nausea Morphine Sulfate 2 mg 04/17/24 21:58 Morphine Sulfate (*Crx) 2 Mg/Ml Inj IV PUSH Q4H PRN Pain Rated 7-10 Ondansetron HCl 4 mg 04/18/24 19:01 04/19/24 03:25 Ondansetron Inj 4 Mg/2 Ml Vial IV PUSH 4 mg Q6H PRN Administration Nausea And Vomiting Oxycodone HCl 5 mg 04/18/24 19:01 Oxycodone Hcl (*Crx) 5 Mg Tab Ir PO Q4H PRN Pain Rated 7-10 Labs Labs: Laboratory Results - last 24 hr 04/18/24 04/18/24 04/19/24 17:50 21:23 08:07 WBC RBC Hgb Hct MCV MCH MCHC RDW Plt Count MPV Immature Gran % (Auto) Neut % (Auto) Lymph % (Auto) [place] % (Auto) Eos % (Auto) Baso % (Auto) Lymph # (Auto) [place] # (Auto) Eos # (Auto) Baso # (Auto) Abs Immat Gran (auto) Absolute Neuts (auto) Absolute Nucleated RBC Nucleated RBC % Sodium Potassium Chloride Carbon Dioxide Anion Gap BUN Creatinine Estim Creat Clear Calc Estimated GFR Glucose POC Capillary Glucose 178 H 236 H 192 H Calcium Vancomycin Trough 04/19/24 04/19/24 04/19/24 08:10 08:18 12:21 WBC 9.7 RBC 4.23 Hgb 11.7 L Hct 35.7 L MCV 84.4 MCH 27.7 MCHC 32.8 RDW 12.0 Plt Count 244 MPV 9.2 Immature Gran % (Auto) 0.8 H Neut % (Auto) 85.3 H Lymph % (Auto) 6.0 L [place] % (Auto) 6.0 Eos % (Auto) 0.9 Baso % (Auto) 1.0 Lymph # (Auto) 0.58 L [place] # (Auto) 0.6 Eos # (Auto) 0.1 Baso # (Auto) 0.1 Abs Immat Gran (auto) 0.08 H Absolute Neuts (auto) 8.3 H Absolute Nucleated RBC 0.000 Nucleated RBC % 0.0 Sodium 134 L Potassium 4.0 Chloride 102 Carbon Dioxide 23 Anion Gap 9 BUN 13 Creatinine 0.50 L 0.50 L Estim Creat Clear Calc 109 109 Estimated GFR > 60 > 60 Glucose 203 H POC Capillary Glucose 163 H Calcium 8.2 L Vancomycin Trough 13.0
[2024-04-19 16:52] LABS: Glucose Point of Care 120 mg/dl (65-105)
[2024-04-19] MEDS: metroNIDAZOLE 500 MG/ISO 100ML 500 MG/100 ML BAG 100 MG IVPB (20:47)
[2024-04-19] MEDS: INSULIN GLARGINE (*BKC) 100 UNITS/ML 20 UNITS SUB-Q (20:52)
[2024-04-19 22:00] VITALS: BP 154/65; PULSE 72; RESP 20; TEMP 36.4; O2SAT 98
[2024-04-19 22:39] LABS: Glucose Point of Care 114 mg/dl (65-105)
[2024-04-20] MEDS: METOCLOPRAMIDE HCL INJ 10 MG/2 ML VIAL IV PUSH (00:17)
[2024-04-20] MEDS: SODIUM CHLORIDE 0.9% IV 1,000 ML 100 ML IV CONT ×2 (02:07→17:26)
[2024-04-20 05:06] LABS: Hematocrit 34.5 % (37.0-47.0); Hemoglobin 11.1 g/dL (12.0-15.0); Mean Corpuscular HGB Conc 32.2 g/dl (32-36); Mean Corpuscular Hemoglobin 27.1 pg (26-34); Mean Corpuscular Volume 84.4 fl (80-100); Platelet Count Result 240 k/mm3 (150-375); Red Blood Count 4.09 M/mm3 (4.2-5.4); White Blood Count 8.6 K/mm3 (4.5-10.0)
[2024-04-20 05:15] LABS: Estimated CRCL calculation 93 ml/min; Estimated Glomerular Filt Rate > 60
[2024-04-20] MEDS: CEFEPIME 2 GM/NS 50 ML 2 GM/50 ML BAG IVPB ×2 (05:15→17:27)
[2024-04-20 05:37] VITALS: BP 156/85; PULSE 71; RESP 20; TEMP 36.6; O2SAT 98
[2024-04-20] MEDS: metroNIDAZOLE 500 MG/ISO 100ML 500 MG/100 ML BAG 100 MG IVPB ×3 (05:49→21:28)
[2024-04-20 08:04] LABS: Glucose Point of Care 137 mg/dl (65-105)
[2024-04-20] MEDS: ENOXAPARIN 40 MG/0.4 ML SYRINGE SUB-Q (08:10)
--- NOTE | 2024-04-20 08:10 | P.PNIM_ITS ---
Progress Note: A&P Assessment and Plan (1) Diabetes: Qualifiers: Diabetes mellitus complication status: with hyperglycemia Diabetes mellitus superintendent container terminal insulin use: without superintendent container terminal use Diabetes mellitus type: type 2 Qualified Code(s): E11.65 - Type 2 diabetes mellitus with hyperglycemia Code(s): E11.9 - Type 2 diabetes mellitus without complications Status: Acute (2) Diabetic foot ulcer: Qualifiers: Diabetes mellitus type: type 2 Diabetic foot ulcer location: toe Laterality: left Non-pressure ulcer stage: unspecified non-pressure ulcer stage Qualified Code(s): E11.621 - Type 2 diabetes mellitus with foot ulcer; L97.529 - Non-pressure chronic ulcer of other part of left foot with unspecified severit y Code(s): E11.621 - Type 2 diabetes mellitus with foot ulcer; L97.509 - Non-pressure chronic ulcer of other part of unspecified foot with unspecified severity Status: Acute (3) Cellulitis of left foot: Code(s): L03.116 - Cellulitis of left lower limb Status: Acute Plan 63 y/o F presents here with wound to left foot with PMH of shingles, migraines, presented to [facility] for further evaluation of left foot wound and left leg redness.? She initially believes wound developed after she was walking barefoot in her apartment and she stepped on something sharp causing a cut. ?After injury she cleaned the wound with peroxide and placed a bandage.? Initially sought care with her PCP started her on doxycycline on 04/14, update her Tdap, and an x-ray was obtained.? Foot XR on 04/14 was unremarkable. ?However, despite ABX initiation the area has continued to increase in redness, warmth, and tenderness.? Now having sloughing of the skin and scant yellow drainage.? Diabetic foot ulcer: Qualifiers: Diabetes mellitus type: type 2 Diabetic foot ulcer location: toe Laterality: left Non-pressure ulcer stage: unspecified non-pressure ulcer stage Qualified Code(s): E11.621 - Type 2 diabetes mellitus with foot ulcer; L97.529 - Non-pressure chronic ulcer of other part of left foot with unspecified severity Code(s): E11.621 - Type 2 diabetes mellitus with foot ulcer; L97.509 - Non-pressure chronic ulcer of other part of unspecified foot with unspecified severity Status: Acute Assessment and Plan: - CT foot: 1. Puncture wound plantar to the head of the first metatarsal with small region of underlying phlegmonous change without organized abscess, retained foreign body, soft tissue gas or associated osteomyelitis. - wound documented via photo at beginning of admission, plan to update. on vancomycin IV, cefepime IV, and Flagyl p.o - lactic not completed during initial evaluation, add procalcitonin and CRP - generally surgery consulted for possible surgical debridement versus amputation, awaiting formal recs - analgesics and antipyretics p.r.n. - wound nurse consulted S/P Complex incision and drainage of diabetic left foot abscess 04/18 Pending wound culture, patient is afebrile over the night, continue current antibiotics, change Flagyl to IV, patient cannot tolerate oral Flagyl MRI today- 04/20 Cellulitis of left foot: Code(s): L03.116 - Cellulitis of left lower limb Status: Acute Assessment and Plan: see above Bacteremia Blood culture in [facility] grows Gram-positive cocci Repeated blood culture- negative will stop vanc Uncontrolled type 2 diabetes-new - initial glucose 271 and A1C 13% - started on Lantus 13 units HS - hypoglycemia protocol - POC blood glucose ACHS - correct regimen ordered - moderate dose TIDWM - art educator and dietitian consulted 04/18 glucose is not controlled and target Increase Lantus 20 units q.h.s., start aspart 4 u before each meal, continue sliding scale 04/20- bc better- 120-140's motion sickness nausea and vomiting prior to leaving [facility]. Given 1 dose of Zofran with minimal relief. reglan prn Hyponatremia Mild hyponatremia Diet: diabetic GI Prophylaxis: not currently indicated DVT Prophylaxis: Lovenox Lines: peripheral Code Status: full code Time Spent With Patient Time with patient: Greater than 35 minutes Subjective Date/time seen: 04/20/24 08:10 Interval history: S/P Complex incision and drainage of diabetic left foot abscess 04/18 Pending wound culture Patient feels better today, left foot pain is tolerable- but reports nausea MRI today denies abdomen pain, chest pain, shortness of breath. Afebrile, blood pressure stable Review of Systems Review of Systems: All systems reviewed & are unremarkable except as noted in HPI and below Exam Narrative: GENERAL: Pleasant, in no acute distress. Well-nourished. - EYES: EOMI. Anicteric. - HENT: Moist mucous membranes. - LUNGS: Clear to auscultation bilateral ly, no wheezing, rhonchi, or rales. - CARDIOVASCULAR: Regular rate and rhyth m. No murmur. No JVD. - ABDOMEN: Soft, non-tender and non-dist ended. No palpable masses. - EXTREMITIES: No edema. Peripheral puls es 2+. Non-tender. - NEUROLOGIC: No focal neurological defi cits. CN II-XII grossly intact. - PSYCHIATRIC: Awake, Alert and oriented x 3. Appropriate mood and affect. - SKIN: Left foot nonhealing ulcer, red ness swelling of the left leg is improving, ulcer of the left foot status post I and D, dressings dry and clean - LYMPH: No cervical lymphadenopathy. Const: General: no acute distress and uncomfortable Other: , female, ill appearing HENMT: Face/Nose/Sinus: Normal nares present Mouth: Yes moist mucous membranes Eyes: General: appearance normal, both eyes and all related structures Sclera: sclerae normal Pupils: Equal, round and reactive pupils present EOM: EOMs intact bilaterally Resp: Effort & Inspection: normal respiratory effort Auscultation: clear to auscultation bilaterally Cardio: Rate: regular rate Rhythm: regular rhythm Other: S1-S2 present without murmur, rub, ectopy GI: Other: Abdomen soft, nondistended, nontender Skin: General skin exam: normal color, no rashes or lesions noted and wounds noted Wounds: wounds noted Other: Open wound to plantar aspect of left foot near base of 1st toe measuring approximately 1 cm with scant/diffuse yellow drainage. Sloughing starting at base of left 1st toe and stops near arch. Sloughing to dorsal aspect of foot. Erythema prominent to dorsal aspect of foot but does not extend to 2nd through 5th toe which are pale with poor cap refill. Erythema streaking up left leg involving the distal 1/3 of her calf. DP pulses intact. Skin moist near forehead. Neuro: Cranial nerves: Yes Equal, round and reactive pupils present Speech: normal speech Motor exam (neuro): 5/5 motor strength present throughout Sensory Exam: normal sensation Other: A&O x4 Extrem: General: normal exam except as noted Other: No edema. Psych: Mental Status: mental status grossly normal Affect: normal affect Other: Good insight and judgment, pleasant. Objective Data Vital Signs Vital Signs: Vital Signs - 24 hr 04/19/24 10:39 04/19/24 11:07 04/19/24 14:00 Temperature 98.4 F Pulse Rate 69 Respiratory Rate 18 Blood Pressure 145/59 H Pulse Oximetry 98 Oxygen Delivery Room Air Room Air 04/19/24 22:00 04/19/24 20:40 04/20/24 05:37 Temperature 97.5 F L 97.9 F Pulse Rate 72 71 Respiratory Rate 20 20 Blood Pressure 154/65 H 156/85 H Pulse Oximetry 98 98 Oxygen Delivery Room Air Intake/Output Intake/Output: Intake & Output 04/17/24 04/18/24 04/19/24 04/20/24 23:59 23:59 23:59 23:59 Intake Total 2070 1740 2150 Output Total 1200 Balance 2069 540 2150 Meds/Results Medications: Active Medications Generic Name Dose Route Start Last Admin Trade Name Freq PRN Reason Stop Dose Admin Acetaminophen 1,000 mg 04/18/24 19:01 Acetaminophen 500 Mg Tablet PO Q6H PRN Mild Pain (1-3) or Fever Hydrocodone Bitart/Acetaminophen 1 tab 04/18/24 19:01 Hydrocodone/Acetaminophen (*Crx) 5-325 Mg Tablet PO Q4H PRN Pain Rated 4-6 Dextrose 12.5 gm 04/17/24 22:00 Dextrose 50% 25 Gm/50 Ml Syringe IV PUSH PRN PRN Hypoglycemia Protocol Diphenhydramine HCl 25 mg 04/17/24 21:58 04/18/24 18:21 Diphenhydramine Hcl Inj 50 Mg/Ml Vial IV PUSH 25 mg Q6H PRN Administration Nausea And Vomiting Enoxaparin Sodium 40 mg 04/18/24 09:00 04/19/24 10:03 Enoxaparin 40 Mg/0.4 Ml Syringe SUB-Q 40 mg DAILY JOSIE Administration Glucagon 1 mg 04/17/24 22:00 Glucagon For Inj 1 Mg Vial IM PRN PRN Hypoglycemia Protocol Glucose 15 gm 04/17/24 22:00 Glucose Oral Gel 15 Gm Of Glucse In 37.5 Gm Tube PO PRN PRN Hypoglycemia Protocol Dextrose 1,000 mls @ 100 mls/hr 04/17/24 22:00 Dextrose 5% 1,000 Ml IVPB PRN PRN Hypoglycemia Protocol Cefepime HCl 2 gm in 50 mls @ 100 mls/hr 04/18/24 06:00 04/20/24 05:45 Maxipime 2 Gm/Ns 50 Ml IVPB Infused Q12H [facility] Infusion Sodium Chloride 1,000 mls @ 100 mls/hr 04/18/24 11:10 04/20/24 05:11 Normal Saline Iv IV CONT Not Given .Q10H JOSIE Vancomycin HCl 1,500 mg in 500 mls @ 250 mls/hr 04/19/24 10:00 04/20/24 00:18 Vancomycin 1,500 Mg/Ns 500 Ml IVPB Infused Q12H JOSIE Infusion Metronidazole 500 mg in 100 mls @ 100 mls/hr 04/19/24 22:00 04/20/24 06:49 Flagyl 500 Mg/Iso Soln 100 Ml IVPB Infused Q8H [facility] Infusion Insulin Aspart 3 - 6 units 04/18/24 08:00 04/19/24 17:02 Insulin Aspart (*Bkc) 100 Units/Ml SUB-Q Not Given TIDWM [facility] Protocol Insulin Aspart 4 units 04/19/24 12:00 04/19/24 17:19 Insulin Aspart (*Bkc) 100 Units/Ml 0.05 units/kg (4 units) 4 units SUB-Q Administration TIDWM [facility] Insulin Glargine 20 units 04/19/24 21:00 04/19/24 20:52 Insulin Glargine (*Bkc) 100 Units/Ml SUB-Q 20 units HS JOSIE Administration Metoclopramide HCl 10 mg 04/18/24 10:09 04/20/24 00:17 Metoclopramide Hcl Inj 10 Mg/2 Ml Vial IV PUSH 10 mg Q6HR PRN Administration Nausea Morphine Sulfate 2 mg 04/17/24 21:58 Morphine Sulfate (*Crx) 2 Mg/Ml Inj IV PUSH Q4H PRN Pain Rated 7-10 Ondansetron HCl 4 mg 04/18/24 19:01 04/19/24 20:47 Ondansetron Inj 4 Mg/2 Ml Vial IV PUSH 4 mg Q6H PRN Administration Nausea And Vomiting Oxycodone HCl 5 mg 04/18/24 19:01 Oxycodone Hcl (*Crx) 5 Mg Tab Ir PO Q4H PRN Pain Rated 7-10 Labs Labs: Laboratory Results - last 24 hr 04/19/24 04/19/24 04/19/24 08:07 08:10 08:18 WBC 9.7 RBC 4.23 Hgb 11.7 L Hct 35.7 L MCV 84.4 MCH 27.7 MCHC 32.8 RDW 12.0 Plt Count 244 MPV 9.2 Immature Gran % (Auto) 0.8 H Neut % (Auto) 85.3 H Lymph % (Auto) 6.0 L [place] % (Auto) 6.0 Eos % (Auto) 0.9 Baso % (Auto) 1.0 Lymph # (Auto) 0.58 L [place] # (Auto) 0.6 Eos # (Auto) 0.1 Baso # (Auto) 0.1 Abs Immat Gran (auto) 0.08 H Absolute Neuts (auto) 8.3 H Absolute Nucleated RBC 0.000 Nucleated RBC % 0.0 Sodium 134 L Potassium 4.0 Chloride 102 Carbon Dioxide 23 Anion Gap 9 BUN 13 Creatinine 0.50 L 0.50 L Estim Creat Clear Calc 109 109 Estimated GFR > 60 > 60 Glucose 203 H POC Capillary Glucose 192 H Calcium 8.2 L Vancomycin Trough 13.0 04/19/24 04/19/24 04/19/24 12:21 16:48 20:02 WBC RBC Hgb Hct MCV MCH MCHC RDW Plt Count MPV Immature Gran % (Auto) Neut % (Auto) Lymph % (Auto) [place] % (Auto) Eos % (Auto) Baso % (Auto) Lymph # (Auto) [place] # (Auto) Eos # (Auto) Baso # (Auto) Abs Immat Gran (auto) Absolute Neuts (auto) Absolute Nucleated RBC Nucleated RBC % Sodium Potassium Chloride Carbon Dioxide Anion Gap BUN Creatinine Estim Creat Clear Calc Estimated GFR Glucose POC Capillary Glucose 163 H 120 H 114 H Calcium Vancomycin Trough 04/20/24 04/20/24 04:49 08:02 WBC 8.6 RBC 4.09 L Hgb 11.1 L Hct 34.5 L MCV 84.4 MCH 27.1 MCHC 32.2 RDW 12.0 Plt Count 240 MPV 9.0 Immature Gran % (Auto) Neut % (Auto) Lymph % (Auto) [place] % (Auto) Eos % (Auto) Baso % (Auto) Lymph # (Auto) [place] # (Auto) Eos # (Auto) Baso # (Auto) Abs Immat Gran (auto) Absolute Neuts (auto) Absolute Nucleated RBC Nucleated RBC % Sodium Potassium Chloride Carbon Dioxide Anion Gap BUN Creatinine 0.60 L Estim Creat Clear Calc 93 Estimated GFR > 60 Glucose POC Capillary Glucose 137 H Calcium Vancomycin Trough Quality VTE Prophylaxis VTE prophylaxis: pharmacologic ordered
[2024-04-20 09:48] LABS: Vancomycin Trough 14.4 ug/mL (10.0-20.0)
[2024-04-20] MEDS: ONDANSETRON INJ 4 MG/2 ML VIAL IV PUSH (10:25)
[2024-04-20] MEDS: VANCOMYCIN 1,750 MG/NS 500 ML 1,750 MG/500 ML BAG 250 MG IVPB (10:26)
--- NOTE | 2024-04-20 11:25 | PM.PNGS ---
Progress Note: A&P Assessment and Plan (1) Foot abscess, left: Code(s): L02.612 - Cutaneous abscess of left foot Status: Acute Assessment and Plan: Status post incision and drainage of left foot abscess. Two Crystal drains in place. Erythema and swelling continue to improve. Continue IV antibiotics and daily gauze dressing changes. We will order an MRI of the foot today to further evaluate for possible osteomyelitis. If she has evidence of osteomyelitis on MRI, then she will need a PICC line and 6 weeks of IV antibiotics. (2) Diabetic infection of left foot: Code(s): E11.628 - Type 2 diabetes mellitus with other skin complications; L08.9 - Local infection of the skin and subcutaneous tissue, unspecified Status: Acute Assessment and Plan: Continue IV antibiotics. (3) Bacteremia: Code(s): R78.81 - Bacteremia Status: Acute Assessment and Plan: Blood cultures on 04/17 with growth of Staphylococcus epidermidis, Gram positive cocci in clusters. Left foot cx with growth of group B strep, staphylococcus aureus. Repeat blood cultures on 04/18 pending. Continue IV antibiotics. (4) Diabetes: Qualifiers: Diabetes mellitus type: type 2 Diabetes mellitus mcfp insulin use: without mcfp use Diabetes mellitus complication status: with hyperglycemia Qualified Code(s): E11.65 - Type 2 diabetes mellitus with hyperglycemia Code(s): E11.9 - Type 2 diabetes mellitus without complications Status: Acute Assessment and Plan: Newly diagnosed diabetes with hemoglobin A1C 13.1 on admission. Hospitalist managing. Extremely important to aim for tight glycemic control. Plan I have discussed the patient's case and plan of care with Dr. Dominique. Subjective Subjective Date/Time Seen: 04/20/24 11:25 Post Op day: 2 (I&D left foot abscess) Patient reports: no new complaints, feels better and afebrile Interval history: Patient still having some nausea, but no vomiting. Her nausea is primarily with any motion or movement, but resolved when she is lying still. Denies any pain in her foot today. Also denies pain with ambulation with heel-touch weight bearing. Exam Const: General: comfortable and no acute distress Skin: Other: Left foot dressing removed. There are [address] with no purulent drainage. Erythema and swelling continue to improve. The redness that was extending up the lower leg has resolved. Erythema now more localized to the foot near the first MTP joint and first toe. She still has tenderness around the first MTP joint. Applied new gauze dressing and covered with Yanick wraps. Objective Data Vital Signs Vital Signs: Vital Signs - 24 hr 04/19/24 14:00 04/19/24 22:00 04/19/24 20:40 Temperature 98.4 F 97.5 F L Pulse Rate 69 72 Respiratory Rate 18 20 Blood Pressure 145/59 H 154/65 H Pulse Oximetry 98 98 Oxygen Delivery Room Air 04/20/24 05:37 04/20/24 08:34 Temperature 97.9 F Pulse Rate 71 Respiratory Rate 20 Blood Pressure 156/85 H Pulse Oximetry 98 Oxygen Delivery Room Air Intake/Output Intake/Output: Intake & Output 04/17/24 04/18/24 04/19/24 04/20/24 23:59 23:59 23:59 23:59 Intake Total 2070 1740 2150 Output Total 1200 Balance 2070 540 2150 Meds/Results Medications: Active Medications Generic Name Dose Route Start Last Admin Trade Name Freq PRN Reason Stop Dose Admin Acetaminophen 1,000 mg 04/18/24 19:01 Acetaminophen 500 Mg Tablet PO Q6H PRN Mild Pain (1-3) or Fever Hydrocodone Bitart/Acetaminophen 1 tab 04/18/24 19:01 Hydrocodone/Acetaminophen (*Crx) 5-325 Mg Tablet PO Q4H PRN Pain Rated 4-6 Dextrose 12.5 gm 04/17/24 22:00 Dextrose 50% 25 Gm/50 Ml Syringe IV PUSH PRN PRN Hypoglycemia Protocol Diphenhydramine HCl 25 mg 04/17/24 21:58 04/18/24 18:21 Diphenhydramine Hcl Inj 50 Mg/Ml Vial IV PUSH 25 mg Q6H PRN Administration Nausea And Vomiting Enoxaparin Sodium 40 mg 04/18/24 09:00 04/20/24 08:10 Enoxaparin 40 Mg/0.4 Ml Syringe SUB-Q 40 mg DAILY JOSIE Administration Glucagon 1 mg 04/17/24 22:00 Glucagon For Inj 1 Mg Vial IM PRN PRN Hypoglycemia Protocol Glucose 15 gm 04/17/24 22:00 Glucose Oral Gel 15 Gm Of Glucse In 37.5 Gm Tube PO PRN PRN Hypoglycemia Protocol Dextrose 1,000 mls @ 100 mls/hr 04/17/24 22:00 Dextrose 5% 1,000 Ml IVPB PRN PRN Hypoglycemia Protocol Cefepime HCl 2 gm in 50 mls @ 100 mls/hr 04/18/24 06:00 04/20/24 05:45 Maxipime 2 Gm/Ns 50 Ml IVPB Infused Q12H JOSIE Infusion Sodium Chloride 1,000 mls @ 100 mls/hr 04/18/24 11:10 04/20/24 05:11 Normal Saline Iv IV CONT Not Given .Q10H JOSIE Metronidazole 500 mg in 100 mls @ 100 mls/hr 04/19/24 22:00 04/20/24 06:49 Flagyl 500 Mg/Iso Soln 100 Ml IVPB Infused Q8H JOSIE Infusion Vancomycin HCl 1,750 mg in 500 mls @ 250 mls/hr 04/20/24 10:00 04/20/24 10:26 Vancomycin 1,750 Mg/Ns 500 Ml IVPB 250 mls/hr Q12H JOSIE Administration Insulin Aspart 3 - 6 units 04/18/24 08:00 04/20/24 08:10 Insulin Aspart (*Bkc) 100 Units/Ml SUB-Q Not Given TIDWM [facility] Protocol Insulin Aspart 4 units 04/19/24 12:00 04/20/24 08:26 Insulin Aspart (*Bkc) 100 Units/Ml 0.05 units/kg (4 units) Not Given SUB-Q TIDWM [facility] Insulin Glargine 20 units 04/19/24 21:00 04/19/24 20:52 Insulin Glargine (*Bkc) 100 Units/Ml SUB-Q 20 units [facility] Administration Metoclopramide HCl 10 mg 04/18/24 10:09 04/20/24 00:17 Metoclopramide Hcl Inj 10 Mg/2 Ml Vial IV PUSH 10 mg Q6HR PRN Administration Nausea Morphine Sulfate 2 mg 04/17/24 21:58 Morphine Sulfate (*Crx) 2 Mg/Ml Inj IV PUSH Q4H PRN Pain Rated 7-10 Ondansetron HCl 4 mg 04/18/24 19:01 04/20/24 10:25 Ondansetron Inj 4 Mg/2 Ml Vial IV PUSH 4 mg Q6H PRN Administration Nausea And Vomiting Oxycodone HCl 5 mg 04/18/24 19:01 Oxycodone Hcl (*Crx) 5 Mg Tab Ir PO Q4H PRN Pain Rated 7-10 Labs Labs: Laboratory Results - last 24 hr 04/19/24 04/19/24 04/19/24 12:21 16:48 20:02 WBC RBC Hgb Hct MCV MCH MCHC RDW Plt Count MPV Creatinine Estim Creat Clear Calc Estimated GFR POC Capillary Glucose 163 H 120 H 114 H Vancomycin Trough 04/20/24 04/20/24 04/20/24 04:49 08:02 08:47 WBC 8.6 RBC 4.09 L Hgb 11.1 L Hct 34.5 L MCV 84.4 MCH 27.1 MCHC 32.2 RDW 12.0 Plt Count 240 MPV 9.0 Creatinine 0.60 L Estim Creat Clear Calc 93 Estimated GFR > 60 POC Capillary Glucose 137 H Vancomycin Trough 14.4
[2024-04-20 12:04] LABS: Glucose Point of Care 144 mg/dl (65-105)
[2024-04-20 14:00] VITALS: BP 186/71; PULSE 73; RESP 14; TEMP 36.4; O2SAT 100
[2024-04-20 17:10] LABS: Glucose Point of Care 158 mg/dl (65-105)
[2024-04-20] MEDS: diphenhydrAMINE HCl INJ 50 MG/ML VIAL 25 MG IV PUSH (19:58)
[2024-04-20] MEDS: INSULIN GLARGINE (*BKC) 100 UNITS/ML 20 UNITS SUB-Q (21:27)
[2024-04-20 21:28] LABS: Glucose Point of Care 164 mg/dl (65-105)
[2024-04-20 22:00] VITALS: BP 160/77; PULSE 72; RESP 20; TEMP 36.6; O2SAT 100
[2024-04-21 00:29] VITALS: BP 158/64
[2024-04-21] MEDS: SODIUM CHLORIDE 0.9% IV 1,000 ML 100 ML IV CONT ×2 (05:01→15:30)
[2024-04-21] MEDS: CEFEPIME 2 GM/NS 50 ML 2 GM/50 ML BAG IVPB (05:02)
[2024-04-21] MEDS: ONDANSETRON INJ 4 MG/2 ML VIAL IV PUSH ×2 (05:23→17:14)
[2024-04-21] MEDS: metroNIDAZOLE 500 MG/ISO 100ML 500 MG/100 ML BAG 100 MG IVPB (05:57)
[2024-04-21 06:00] VITALS: BP 178/69; PULSE 74; RESP 20; TEMP 36.1; O2SAT 100
--- NOTE | 2024-04-21 07:39 | P.PNIM_ITS ---
Progress Note: A&P Assessment and Plan (1) Diabetes: Qualifiers: Diabetes mellitus complication status: with hyperglycemia Diabetes mellitus predatory animal exterminator insulin use: without predatory animal exterminator use Diabetes mellitus type: type 2 Qualified Code(s): E11.65 - Type 2 diabetes mellitus with hyperglycemia Code(s): E11.9 - Type 2 diabetes mellitus without complications Status: Acute (2) Diabetic foot ulcer: Qualifiers: Diabetes mellitus type: type 2 Diabetic foot ulcer location: toe Laterality: left Non-pressure ulcer stage: unspecified non-pressure ulcer stage Qualified Code(s): E11.621 - Type 2 diabetes mellitus with foot ulcer; L97.529 - Non-pressure chronic ulcer of other part of left foot with unspecified severit y Code(s): E11.621 - Type 2 diabetes mellitus with foot ulcer; L97.509 - Non-pressure chronic ulcer of other part of unspecified foot with unspecified severity Status: Acute (3) Cellulitis of left foot: Code(s): L03.116 - Cellulitis of left lower limb Status: Acute Plan 63 y/o F presents here with wound to left foot with PMH of shingles, migraines, presented to [place] [facility] for further evaluation of left foot wound and left leg redness.? She initially believes wound developed after she was walking barefoot in her apartment and she stepped on something sharp causing a cut. ?After injury she cleaned the wound with peroxide and placed a bandage.? Initially sought care with her PCP started her on doxycycline on 04/14, update her Tdap, and an x-ray was obtained.? Foot XR on 04/14 was unremarkable. ?However, despite ABX initiation the area has continued to increase in redness, warmth, and tenderness.? Now having sloughing of the skin and scant yellow drainage.? Diabetic foot ulcer: Qualifiers: Diabetes mellitus type: type 2 Diabetic foot ulcer location: toe Laterality: left Non-pressure ulcer stage: unspecified non-pressure ulcer stage Qualified Code(s): E11.621 - Type 2 diabetes mellitus with foot ulcer; L97.529 - Non-pressure chronic ulcer of other part of left foot with unspecified severity Code(s): E11.621 - Type 2 diabetes mellitus with foot ulcer; L97.509 - Non-pressure chronic ulcer of other part of unspecified foot with unspecified severity Status: Acute Assessment and Plan: - CT foot: 1. Puncture wound plantar to the head of the first metatarsal with small region of underlying phlegmonous change without organized abscess, retained foreign body, soft tissue gas or associated osteomyelitis. - wound documented via photo at beginning of admission, plan to update. on vancomycin IV, cefepime IV, and Flagyl p.o - lactic not completed during initial evaluation, add procalcitonin and CRP - generally surgery consulted for possible surgical debridement versus amputation, awaiting formal recs - analgesics and antipyretics p.r.n. - wound nurse consulted S/P Complex incision and drainage of diabetic left foot abscess 04/18 patient is afebrile over the night, continue current antibiotics, change Flagyl to IV, patient cannot tolerate oral Flagyl MRI today- 04/20 04/21- wound culture- group B strep flagyl stopped ceftriaxone IV continue Cellulitis of left foot: Code(s): L03.116 - Cellulitis of left lower limb Status: Acute Assessment and Plan: see above Bacteremia Blood culture in [place] grows Gram-positive cocci Repeated blood culture- negative will stop vanc surgery following: Continue IV antibiotics and daily gauze dressing changes. We will order an MRI of the foot today to further evaluate for possible osteomyelitis. If she has evidence of osteomyelitis on MRI, then she will need a PICC line and 6 weeks of IV antibiotics. MRI- IMPRESSION: 1. No evidence of osteomyelitis. Uncontrolled type 2 diabetes-new - initial glucose 271 and A1C 13% - started on Lantus 13 units HS - hypoglycemia protocol - POC blood glucose ACHS - correct regimen ordered - moderate dose TIDWM - breastfeeding educator and dietitian consulted 04/18 glucose is not controlled and target Increase Lantus 20 units q.h.s., start aspart 4 u before each meal, continue sliding scale 04/20- bc better- 120-160's motion sickness nausea and vomiting prior to leaving [facility]. Given 1 dose of Zofran with minimal relief. reglan prn benadryl prn Hyponatremia Mild hyponatremia Diet: diabetic GI Prophylaxis: not currently indicated DVT Prophylaxis: Lovenox Lines: peripheral Code Status: full code Time Spent With Patient Time with patient: Greater than 35 minutes Subjective Date/time seen: 04/21/24 07:39 Interval history: S/P Complex incision and drainage of diabetic left foot abscess 04/18 MRI- no osteo stop flagyl nausea still issues- but nausea medication is not fully utilized- encouraged pt to ask for nausea meds when she needs it. dressing is c/d/i Review of Systems Review of Systems: All systems reviewed & are unremarkable except as noted in HPI and below Exam Narrative: GENERAL: Pleasant, in no acute distress. Well-nourished. - EYES: EOMI. Anicteric. - HENT: Moist mucous membranes. - LUNGS: Clear to auscultation bilateral ly, no wheezing, rhonchi, or rales. - CARDIOVASCULAR: Regular rate and rhyth m. No murmur. No JVD. - ABDOMEN: Soft, non-tender and non-dist ended. No palpable masses. - EXTREMITIES: No edema. Peripheral puls es 2+. Non-tender. - NEUROLOGIC: No focal neurological defi cits. CN II-XII grossly intact. - PSYCHIATRIC: Awake, Alert and oriented x 3. Appropriate mood and affect. - SKIN: S/p incision and drainage of l t foot abscess. Two Crystal drains in place. Erythema and swelling improving. - LYMPH: No cervical lymphadenopathy. Const: General: no acute distress and uncomfortable Other: , female, ill appearing HENMT: Face/Nose/Sinus: Normal nares present Mouth: Yes moist mucous membranes Eyes: General: appearance normal, both eyes and all related structures Sclera: sclerae normal Pupils: Equal, round and reactive pupils present EOM: EOMs intact bilaterally Resp: Effort & Inspection: normal respiratory effort Auscultation: clear to auscultation bilaterally Cardio: Rate: regular rate Rhythm: regular rhythm Other: S1-S2 present without murmur, rub, ectopy GI: Other: Abdomen soft, nondistended, nontender Skin: General skin exam: normal color, no rashes or lesions noted and wounds noted Wounds: wounds noted Other: Open wound to plantar aspect of left foot near base of 1st toe measuring approximately 1 cm with scant/diffuse yellow drainage. Sloughing starting at base of left 1st toe and stops near arch. Sloughing to dorsal aspect of foot. Erythema prominent to dorsal aspect of foot but does not extend to 2nd through 5th toe which are pale with poor cap refill. Erythema streaking up left leg involving the distal 1/3 of her calf. DP pulses intact. Skin moist near forehead. Neuro: Cranial nerves: Yes Equal, round and reactive pupils present Speech: normal speech Motor exam (neuro): 5/5 motor strength present throughout Sensory Exam: normal sensation Other: A&O x4 Extrem: General: normal exam except as noted Other: No edema. Psych: Mental Status: mental status grossly normal Affect: normal affect Other: Good insight and judgment, pleasant. Objective Data Vital Signs Vital Signs: Vital Signs - 24 hr 04/20/24 08:34 04/20/24 14:00 04/20/24 22:00 Temperature 97.6 F 97.9 F Pulse Rate 73 72 Respiratory Rate 14 20 Blood Pressure 186/71 H 160/77 H Pulse Oximetry 100 100 Oxygen Delivery Room Air 04/21/24 00:29 04/21/24 06:00 Temperature 97.0 F L Pulse Rate 74 Respiratory Rate 20 Blood Pressure 158/64 H 178/69 H Pulse Oximetry 100 Oxygen Delivery Intake/Output Intake/Output: Intake & Output 04/18/24 04/19/24 04/20/24 04/21/24 23:59 23:59 23:59 23:59 Intake Total 2070 1740 4280 1750 Output Total 1200 Balance 2070 540 4280 1750 Meds/Results Medications: Active Medications Generic Name Dose Route Start Last Admin Trade Name Freq PRN Reason Stop Dose Admin Acetaminophen 1,000 mg 04/18/24 19:01 Acetaminophen 500 Mg Tablet PO Q6H PRN Mild Pain (1-3) or Fever Hydrocodone Bitart/Acetaminophen 1 tab 04/18/24 19:01 Hydrocodone/Acetaminophen (*Crx) 5-325 Mg Tablet PO Q4H PRN Pain Rated 4-6 Dextrose 12.5 gm 04/17/24 22:00 Dextrose 50% 25 Gm/50 Ml Syringe IV PUSH PRN PRN Hypoglycemia Protocol Diphenhydramine HCl 25 mg 04/17/24 21:58 04/20/24 19:58 Diphenhydramine Hcl Inj 50 Mg/Ml Vial IV PUSH 25 mg Q6H PRN Administration Nausea And Vomiting Enoxaparin Sodium 40 mg 04/18/24 09:00 04/20/24 08:10 Enoxaparin 40 Mg/0.4 Ml Syringe SUB-Q 40 mg DAILY JOSIE Administration Glucagon 1 mg 04/17/24 22:00 Glucagon For Inj 1 Mg Vial IM PRN PRN Hypoglycemia Protocol Glucose 15 gm 04/17/24 22:00 Glucose Oral Gel 15 Gm Of Glucse In 37.5 Gm Tube PO PRN PRN Hypoglycemia Protocol Dextrose 1,000 mls @ 100 mls/hr 04/17/24 22:00 Dextrose 5% 1,000 Ml IVPB PRN PRN Hypoglycemia Protocol Cefepime HCl 2 gm in 50 mls @ 100 mls/hr 04/18/24 06:00 04/21/24 05:02 Maxipime 2 Gm/Ns 50 Ml IVPB 100 mls/hr Q12H JOISE Administration Sodium Chloride 1,000 mls @ 100 mls/hr 04/18/24 11:10 04/21/24 05:10 Normal Saline Iv IV CONT Not Given .Q10H JOSIE Metronidazole 500 mg in 100 mls @ 100 mls/hr 04/19/24 22:00 04/21/24 05:57 Flagyl 500 Mg/Iso Soln 100 Ml IVPB 100 mls/hr Q8H JOSIE Administration Insulin Aspart 3 - 6 units 04/18/24 08:00 04/20/24 17:27 Insulin Aspart (*Bkc) 100 Units/Ml SUB-Q Not Given TIDWM [facility] Protocol Insulin Aspart 4 units 04/19/24 12:00 04/20/24 17:27 Insulin Aspart (*Bkc) 100 Units/Ml 0.05 units/kg (4 units) Not Given SUB-Q TIDWM [facility] Insulin Glargine 20 units 04/19/24 21:00 04/20/24 21:27 Insulin Glargine (*Bkc) 100 Units/Ml SUB-Q 20 units HS JOSIE Administration Metoclopramide HCl 10 mg 04/18/24 10:09 04/20/24 00:17 Metoclopramide Hcl Inj 10 Mg/2 Ml Vial IV PUSH 10 mg Q6HR PRN Administration Nausea Morphine Sulfate 2 mg 04/17/24 21:58 Morphine Sulfate (*Crx) 2 Mg/Ml Inj IV PUSH Q4H PRN Pain Rated 7-10 Ondansetron HCl 4 mg 04/18/24 19:01 04/21/24 05:23 Ondansetron Inj 4 Mg/2 Ml Vial IV PUSH 4 mg Q6H PRN Administration Nausea And Vomiting Oxycodone HCl 5 mg 04/18/24 19:01 Oxycodone Hcl (*Crx) 5 Mg Tab Ir PO Q4H PRN Pain Rated 7-10 Radiology Results: ITS Impressions Ankle Brachial Index 04/20/24 15:21 IMPRESSION: Moderate stenosis is suggestive bilaterally. Foot MRI 04/20/24 16:58 IMPRESSION: 1. No evidence of osteomyelitis. Labs Labs: Laboratory Results - last 24 hr 04/20/24 04/20/24 04/20/24 08:02 08:47 11:57 POC Capillary Glucose 137 H 144 H Vancomycin Trough 14.4 04/20/24 04/20/24 17:06 21:25 POC Capillary Glucose 158 H 164 H Vancomycin Trough Quality VTE Prophylaxis VTE prophylaxis: pharmacologic ordered
[2024-04-21 08:20] LABS: Glucose Point of Care 174 mg/dl (65-105)
[2024-04-21 08:28] LABS: Hematocrit 39.6 % (37.0-47.0); Hemoglobin 12.6 g/dL (12.0-15.0); Mean Corpuscular HGB Conc 31.8 g/dl (32-36); Mean Corpuscular Hemoglobin 27.4 pg (26-34); Mean Corpuscular Volume 86.1 fl (80-100); Platelet Count Result 286 k/mm3 (150-375); Red Cell Distribution Width 12.3 % (11.5-14.5); White Blood Count 11.1 K/mm3 (4.5-10.0)
[2024-04-21] MEDS: ENOXAPARIN 40 MG/0.4 ML SYRINGE SUB-Q (09:10)
[2024-04-21] MEDS: INSULIN ASPART (*BKC) 100 UNITS/ML SUB-Q ×3 (09:10→17:15)
[2024-04-21 09:39] VITALS: BP 182/90
[2024-04-21] MEDS: METOCLOPRAMIDE HCL INJ 10 MG/2 ML VIAL IV PUSH (09:46)
[2024-04-21 09:56] LABS: Anion Gap 19 mmol/L (4-12); Blood Urea Nitrogen 8 mg/dL (7-17); Calcium 8.3 mg/dL (8.4-10.2); Carbon Dioxide 10 mmol/L (22-30); Chloride 107 mmol/L (98-107); Estimated CRCL calculation 109 ml/min; Estimated Glomerular Filt Rate > 60; Glucose 182 mg/dL (65-110); Potassium 3.7 mmol/L (3.4-5.0); Sodium 136 mmol/L (137-145)
[2024-04-21 11:47] LABS: Glucose Point of Care 175 mg/dl (65-105)
--- NOTE | 2024-04-21 13:37 | P.PNGS_ITS ---
Progress Note: A&P Assessment and Plan (1) Foot abscess, left: Code(s): L02.612 - Cutaneous abscess of left foot Status: Acute Assessment and Plan: Status post incision and drainage of left foot abscess. Two Crystal drains in place. Erythema and swelling continues to improve. MRI negative for osteomyelitis. Okay to transition oral antibiotics once her nausea improves. We will stop the IV metronidazole to see if this is causing her nausea. Continue with p.r.n. antiemetics. (2) Diabetic infection of left foot: Code(s): E11.628 - Type 2 diabetes mellitus with other skin complications; L08.9 - Local infection of the skin and subcutaneous tissue, unspecified Status: Acute Assessment and Plan: MRI yesterday showed no evidence of osteomyelitis. Continue IV antibiotics for now while she is nauseous. When she is able to tolerate oral medication, she can be transitioned to oral antibiotics. (3) Bacteremia: Code(s): R78.81 - Bacteremia Status: Acute Assessment and Plan: Blood cultures on 04/17 with growth of Staphylococcus epidermidis, Gram positive cocci in clusters. Left foot cx with growth of group B strep, staphylococcus aureus. Repeat blood cultures on 04/18 NGTD. Current antibiotics are appropriate. (4) Diabetes: Qualifiers: Diabetes mellitus type: type 2 Diabetes mellitus ferry terminal agent insulin use: without fdc use Diabetes mellitus complication status: with hyperglycemia Qualified Code(s): E11.65 - Type 2 diabetes mellitus with hyperglycemia Code(s): E11.9 - Type 2 diabetes mellitus without complications Status: Acute Assessment and Plan: Newly diagnosed diabetes with hemoglobin A1C 13.1 on admission. This will make her at high risk for healing complications. Plan I have discussed the patient's case and plan of care with Dr. Dominique. Subjective Subjective Date/Time Seen: 04/21/24 13:37 Post Op day: 3 (Incision and drainage left foot abscess) Patient reports: nausea and afebrile Interval history: Patient denies any complaints with her left foot. Her only complaint this morning is her persistent nausea. She feels so nauseous that she has not been able to tolerate any diet and does not feel she could take any oral medications. Benadryl has helped, Zofran is not helping much. No vomiting. Exam Skin: Other: Left foot dressing removed. There are [address] with no purulent drainage. Erythema and swelling much improved. There is only minimal erythema around the first MTP joint and great toe, which has significantly improved in the past few days. No redness spreading up the foot or leg. She is also less tender near the first MTP joint. Applied new gauze dressing and covered with Yanick wraps. Objective Data Vital Signs Vital Signs: Vital Signs - 24 hr 04/20/24 14:00 04/20/24 22:00 04/21/24 00:29 Temperature 97.6 F 97.9 F Pulse Rate 73 72 Respiratory Rate 14 20 Blood Pressure 186/71 H 160/77 H 158/64 H Pulse Oximetry 100 100 Oxygen Delivery 04/21/24 06:00 04/21/24 09:39 04/21/24 09:30 Temperature 97.0 F L Pulse Rate 74 Respiratory Rate 20 Blood Pressure 178/69 H 182/90 H Pulse Oximetry 100 Oxygen Delivery Room Air Intake/Output Intake/Output: Intake & Output 04/18/24 04/19/24 04/20/24 04/21/24 23:59 23:59 23:59 23:59 Intake Total 2070 1740 4280 1989 Output Total 1200 Balance 2070 540 4280 1989 Meds/Results Medications: Active Medications Generic Name Dose Route Start Last Admin Trade Name Freq PRN Reason Stop Dose Admin Acetaminophen 1,000 mg 04/18/24 19:01 Acetaminophen 500 Mg Tablet PO Q6H PRN Mild Pain (1-3) or Fever Hydrocodone Bitart/Acetaminophen 1 tab 04/18/24 19:01 Hydrocodone/Acetaminophen (*Crx) 5-325 Mg Tablet PO Q4H PRN Pain Rated 4-6 Dextrose 12.5 gm 04/17/24 22:00 Dextrose 50% 25 Gm/50 Ml Syringe IV PUSH PRN PRN Hypoglycemia Protocol Diphenhydramine HCl 25 mg 04/17/24 21:58 04/20/24 19:58 Diphenhydramine Hcl Inj 50 Mg/Ml Vial IV PUSH 25 mg Q6H PRN Administration Nausea And Vomiting Enoxaparin Sodium 40 mg 04/18/24 09:00 04/21/24 09:10 Enoxaparin 40 Mg/0.4 Ml Syringe SUB-Q 40 mg DAILY JOSIE Administration Glucagon 1 mg 04/17/24 22:00 Glucagon For Inj 1 Mg Vial IM PRN PRN Hypoglycemia Protocol Glucose 15 gm 04/17/24 22:00 Glucose Oral Gel 15 Gm Of Glucse In 37.5 Gm Tube PO PRN PRN Hypoglycemia Protocol Dextrose 1,000 mls @ 100 mls/hr 04/17/24 22:00 Dextrose 5% 1,000 Ml IVPB PRN PRN Hypoglycemia Protocol Sodium Chloride 1,000 mls @ 100 mls/hr 04/18/24 11:10 04/21/24 05:10 Normal Saline Iv IV CONT Not Given .Q10H JOSIE Ceftriaxone Sodium 2 gm in 100 mls @ 200 mls/hr 04/21/24 18:00 Rocephin 2 Gm/Ns 100 Ml IVPB Q24H JOSIE Insulin Aspart 3 - 6 units 04/18/24 08:00 04/21/24 11:52 Insulin Aspart (*Bkc) 100 Units/Ml SUB-Q Not Given TIDWM [facility] Protocol Insulin Aspart 4 units 04/19/24 12:00 04/21/24 12:33 Insulin Aspart (*Bkc) 100 Units/Ml 0.05 units/kg (4 units) 4 units SUB-Q Administration TIDWM [facility] Insulin Glargine 20 units 04/19/24 21:00 04/20/24 21:27 Insulin Glargine (*Bkc) 100 Units/Ml SUB-Q 20 units HS JOSIE Administration Metoclopramide HCl 10 mg 04/18/24 10:09 04/21/24 09:46 Metoclopramide Hcl Inj 10 Mg/2 Ml Vial IV PUSH 10 mg Q6HR PRN Administration Nausea Morphine Sulfate 2 mg 04/17/24 21:58 Morphine Sulfate (*Crx) 2 Mg/Ml Inj IV PUSH Q4H PRN Pain Rated 7-10 Ondansetron HCl 4 mg 04/18/24 19:01 04/21/24 05:23 Ondansetron Inj 4 Mg/2 Ml Vial IV PUSH 4 mg Q6H PRN Administration Nausea And Vomiting Oxycodone HCl 5 mg 04/18/24 19:01 Oxycodone Hcl (*Crx) 5 Mg Tab Ir PO Q4H PRN Pain Rated 7-10 Radiology Results: ITS Impressions Ankle Brachial Index 04/20/24 15:21 IMPRESSION: Moderate stenosis is suggestive bilaterally. Foot MRI 04/20/24 16:58 IMPRESSION: 1. No evidence of osteomyelitis. Labs Labs: Laboratory Results - last 24 hr 04/20/24 04/20/24 04/21/24 17:06 21:25 08:14 WBC RBC Hgb Hct MCV MCH MCHC RDW Plt Count MPV Sodium Potassium Chloride Carbon Dioxide Anion Gap BUN Creatinine Estim Creat Clear Calc Estimated GFR Glucose POC Capillary Glucose 158 H 164 H 174 H Calcium 04/21/24 04/21/24 08:16 11:43 WBC 11.1 H RBC 4.60 Hgb 12.6 Hct 39.6 MCV 86.1 MCH 27.4 MCHC 31.8 L RDW 12.3 Plt Count 286 MPV 9.0 Sodium 136 L Potassium 3.7 Chloride 107 Carbon Dioxide 10 L Anion Gap 19 H BUN 8 D Creatinine 0.50 L Estim Creat Clear Calc 109 Estimated GFR > 60 Glucose 182 H POC Capillary Glucose 175 H Calcium 8.3 L
[2024-04-21 14:00] VITALS: BP 165/66; PULSE 80; RESP 18; TEMP 36.7; O2SAT 80
[2024-04-21 16:59] LABS: Glucose Point of Care 168 mg/dl (65-105)
[2024-04-21] MEDS: cefTRIAXone 2 GM/NS 100 ML 2 GM/100 ML BAG IVPB (17:15)
[2024-04-21] MEDS: INSULIN GLARGINE (*BKC) 100 UNITS/ML 20 UNITS SUB-Q (20:37)
[2024-04-21] MEDS: diphenhydrAMINE HCl INJ 50 MG/ML VIAL 25 MG IV PUSH (20:37)
[2024-04-21 21:58] VITALS: BP 189/74; PULSE 74; RESP 20; TEMP 36.4; O2SAT 100
[2024-04-22 01:05] LABS: Glucose Point of Care 164 mg/dl (65-105)
[2024-04-22] MEDS: SODIUM CHLORIDE 0.9% IV 1,000 ML 100 ML IV CONT ×2 (01:46→15:40)
[2024-04-22 06:00] VITALS: BP 194/76; PULSE 76; RESP 20; TEMP 36.8; O2SAT 100
[2024-04-22 07:18] LABS: Hemoglobin 13.4 g/dL (12.0-15.0); Mean Corpuscular HGB Conc 34.4 g/dl (32-36); Mean Corpuscular Hemoglobin 28.2 pg (26-34); Mean Corpuscular Volume 82.1 fl (80-100); Mean Platelet Volume 8.7 fl (7.4-10.4); Platelet Count Result 300 k/mm3 (150-375); Red Blood Count 4.75 M/mm3 (4.2-5.4); Red Cell Distribution Width 12.6 % (11.5-14.5); White Blood Count 11.8 K/mm3 (4.5-10.0)
[2024-04-22 07:45] LABS: Anion Gap 13 mmol/L (4-12); Blood Urea Nitrogen 6 mg/dL (7-17); Calcium 8.3 mg/dL (8.4-10.2); Carbon Dioxide 17 mmol/L (22-30); Chloride 104 mmol/L (98-107); Estimated CRCL calculation 109 ml/min; Estimated Glomerular Filt Rate > 60; Glucose 151 mg/dL (65-110); Potassium 2.9 mmol/L (3.4-5.0); Sodium 134 mmol/L (137-145)
[2024-04-22 08:10] LABS: Glucose Point of Care 159 mg/dl (65-105)
[2024-04-22] MEDS: ONDANSETRON INJ 4 MG/2 ML VIAL IV PUSH ×3 (08:16→21:15)
[2024-04-22] MEDS: ENOXAPARIN 40 MG/0.4 ML SYRINGE SUB-Q (08:18)
--- NOTE | 2024-04-22 08:45 | P.PNIM_ITS ---
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: without buttermilk drier operator use Diabetes mellitus type: type 2 Qualified Code(s): E11.65 - Type 2 diabetes mellitus with hyperglycemia Code(s): E11.9 - Type 2 diabetes mellitus without complications Status: Acute (2) Diabetic foot ulcer: Qualifiers: Diabetes mellitus type: type 2 Diabetic foot ulcer location: toe Laterality: left Non-pressure ulcer stage: unspecified non-pressure ulcer stage Qualified Code(s): E11.621 - Type 2 diabetes mellitus with foot ulcer; L97.529 - Non-pressure chronic ulcer of other part of left foot with unspecified severit y Code(s): E11.621 - Type 2 diabetes mellitus with foot ulcer; L97.509 - Non-pressure chronic ulcer of other part of unspecified foot with unspecified severity Status: Acute (3) Cellulitis of left foot: Code(s): L03.116 - Cellulitis of left lower limb Status: Acute Plan 63 y/o F presents here with wound to left foot with PMH of shingles, migraines, presented to [facility] for further evaluation of left foot wound and left leg redness.? She initially believes wound developed after she was walking barefoot in her apartment and she stepped on something sharp causing a cut. ?After injury she cleaned the wound with peroxide and placed a bandage.? Initially sought care with her PCP started her on doxycycline on 04/14, update her Tdap, and an x-ray was obtained.? Foot XR on 04/14 was unremarkable. ?However, despite ABX initiation the area has continued to increase in redness, warmth, and tenderness.? Now having sloughing of the skin and scant yellow drainage.? Diabetic foot ulcer: Qualifiers: Diabetes mellitus type: type 2 Diabetic foot ulcer location: toe Laterality: left Non-pressure ulcer stage: unspecified non-pressure ulcer stage Qualified Code(s): E11.621 - Type 2 diabetes mellitus with foot ulcer; L97.529 - Non-pressure chronic ulcer of other part of left foot with unspecified severity Code(s): E11.621 - Type 2 diabetes mellitus with foot ulcer; L97.509 - Non-pressure chronic ulcer of other part of unspecified foot with unspecified severity Status: Acute Assessment and Plan: - CT foot: 1. Puncture wound plantar to the head of the first metatarsal with small region of underlying phlegmonous change without organized abscess, retained foreign body, soft tissue gas or associated osteomyelitis. - wound documented via photo at beginning of admission, plan to update. on vancomycin IV, cefepime IV, and Flagyl p.o - lactic not completed during initial evaluation, add procalcitonin and CRP - generally surgery consulted for possible surgical debridement versus amputation, awaiting formal recs - analgesics and antipyretics p.r.n. - wound nurse consulted S/P Complex incision and drainage of diabetic left foot abscess 04/18 patient is afebrile over the night, continue current antibiotics, change Flagyl to IV, patient cannot tolerate oral Flagyl MRI today- 04/20 04/21- wound culture- group B strep flagyl stopped ceftriaxone IV continue 04/22- surgery notes reviewed: Will stop the Flagyl to see if that is causing her nausea. There been no anaerobes cultured and her blood or from the wound culture. The foot looks better. The MRI shows no evidence of osteomyelitis. Will plan on extended course of oral antibiotics when she leaves the hospital. When she is eating better than plan on discharge home with oral antibiotics for about the next 4 weeks. - continue ceftriaxone Cellulitis of left foot: Code(s): L03.116 - Cellulitis of left lower limb Status: Acute Assessment and Plan: see above Bacteremia Blood culture in [facility] grows Gram-positive cocci Repeated blood culture- negative will stop vanc surgery following: Continue IV antibiotics and daily gauze dressing changes. We will order an MRI of the foot today to further evaluate for possible osteomyelitis. If she has evidence of osteomyelitis on MRI, then she will need a PICC line and 6 weeks of IV antibiotics. MRI- IMPRESSION: 1. No evidence of osteomyelitis. Uncontrolled type 2 diabetes-new - initial glucose 271 and A1C 13% - started on Lantus 13 units HS - hypoglycemia protocol - POC blood glucose ACHS - correct regimen ordered - moderate dose TIDWM - gis application developer and dietitian consulted 04/18 glucose is not controlled and target Increase Lantus 20 units q.h.s., start aspart 4 u before each meal, continue sliding scale 04/20- bc better- 120-160's motion sickness nausea and vomiting prior to leaving [facility]. Given 1 dose of Zofran with minimal relief. reglan prn benadryl prn will try scopolamine patch Hyponatremia Mild hyponatremia # hypokalemia -IV replacement ordered- monitor Diet: diabetic GI Prophylaxis: not currently indicated DVT Prophylaxis: Lovenox Lines: peripheral Code Status: full code Time Spent With Patient Time with patient: Greater than 35 minutes Subjective Date/time seen: 04/22/24 08:45 Interval history: S/P Complex incision and drainage of diabetic left foot abscess 04/18 MRI- no osteo stopped flagyl 04/21- could be reason for her nausea. 04/22- seen and examined. she reports nausea somewhat better today but still an issues. She is not asking for PRN nausea medicine. not much appetite. Will continue with iv antibiotics for now Review of Systems Review of Systems: All systems reviewed & are unremarkable except as noted in HPI and below Exam Narrative: GENERAL: Pleasant, in no acute distress. Well-nourished. - EYES: EOMI. Anicteric. - HENT: Moist mucous membranes. - LUNGS: Clear to auscultation bilateral ly, no wheezing, rhonchi, or rales. - CARDIOVASCULAR: Regular rate and rhyth m. No murmur. No JVD. - ABDOMEN: Soft, non-tender and non-dist ended. No palpable masses. - EXTREMITIES: No edema. Peripheral puls es 2+. Non-tender. - NEUROLOGIC: No focal neurological defi cits. CN II-XII grossly intact. - PSYCHIATRIC: Awake, Alert and oriented x 3. Appropriate mood and affect. - SKIN: S/p incision and drainage of l t foot abscess. Two Crystal drains in place. Erythema and swelling improving. - LYMPH: No cervical lymphadenopathy. Const: General: no acute distress and uncomfortable Other: , female, ill appearing HENMT: Face/Nose/Sinus: Normal nares present Mouth: Yes moist mucous membranes Eyes: General: appearance normal, both eyes and all related structures Sclera: sclerae normal Pupils: Equal, round and reactive pupils present EOM: EOMs intact bilaterally Resp: Effort & Inspection: normal respiratory effort Auscultation: clear to auscultation bilaterally Cardio: Rate: regular rate Rhythm: regular rhythm Other: S1-S2 present without murmur, rub, ectopy GI: Other: Abdomen soft, nondistended, nontender Skin: General skin exam: normal color, no rashes or lesions noted and wounds noted Wounds: wounds noted Other: Open wound to plantar aspect of left foot near base of 1st toe measuring approximately 1 cm with scant/diffuse yellow drainage. Sloughing starting at base of left 1st toe and stops near arch. Sloughing to dorsal aspect of foot. Erythema prominent to dorsal aspect of foot but does not extend to 2nd through 5th toe which are pale with poor cap refill. Erythema streaking up left leg involving the distal 1/3 of her calf. DP pulses intact. Skin moist near forehead. Neuro: Cranial nerves: Yes Equal, round and reactive pupils present Speech: normal speech Motor exam (neuro): 5/5 motor strength present throughout Sensory Exam: normal sensation Other: A&O x4 Extrem: General: normal exam except as noted Other: No edema. Psych: Mental Status: mental status grossly normal Affect: normal affect Other: Good insight and judgment, pleasant. Objective Data Vital Signs Vital Signs: Vital Signs - 24 hr 04/21/24 09:39 04/21/24 09:30 04/21/24 14:00 Temperature 98.1 F Pulse Rate 80 Respiratory Rate 18 Blood Pressure 182/90 H 165/66 H Pulse Oximetry 80 L Oxygen Delivery Room Air 04/21/24 21:58 04/21/24 20:30 04/22/24 06:00 Temperature 97.6 F 98.3 F Pulse Rate 74 76 Respiratory Rate 20 20 Blood Pressure 189/74 H 194/76 H Pulse Oximetry 100 100 Oxygen Delivery Room Air Intake/Output Intake/Output: Intake & Output 04/19/24 04/20/24 04/21/24 04/22/24 23:59 23:59 23:59 23:59 Intake Total 1740 4280 3330 1400 Output Total 1200 Balance 540 4280 3330 1400 Meds/Results Medications: Active Medications Generic Name Dose Route Start Last Admin Trade Name Freq PRN Reason Stop Dose Admin Acetaminophen 1,000 mg 04/18/24 19:01 Acetaminophen 500 Mg Tablet PO Q6H PRN Mild Pain (1-3) or Fever Hydrocodone Bitart/Acetaminophen 1 tab 04/18/24 19:01 Hydrocodone/Acetaminophen (*Crx) 5-325 Mg Tablet PO Q4H PRN Pain Rated 4-6 Dextrose 12.5 gm 04/17/24 22:00 Dextrose 50% 25 Gm/50 Ml Syringe IV PUSH PRN PRN Hypoglycemia Protocol Diphenhydramine HCl 25 mg 04/17/24 21:58 04/21/24 20:37 Diphenhydramine Hcl Inj 50 Mg/Ml Vial IV PUSH 25 mg Q6H PRN Administration Nausea And Vomiting Enoxaparin Sodium 40 mg 04/18/24 09:00 04/22/24 08:18 Enoxaparin 40 Mg/0.4 Ml Syringe SUB-Q 40 mg DAILY JOSIE Administration Glucagon 1 mg 04/17/24 22:00 Glucagon For Inj 1 Mg Vial IM PRN PRN Hypoglycemia Protocol Glucose 15 gm 04/17/24 22:00 Glucose Oral Gel 15 Gm Of Glucse In 37.5 Gm Tube PO PRN PRN Hypoglycemia Protocol Dextrose 1,000 mls @ 100 mls/hr 04/17/24 22:00 Dextrose 5% 1,000 Ml IVPB PRN PRN Hypoglycemia Protocol Sodium Chloride 1,000 mls @ 100 mls/hr 04/18/24 11:10 04/22/24 01:46 Normal Saline Iv IV CONT 100 mls/hr .Q10H JOSIE Administration Ceftriaxone Sodium 2 gm in 100 mls @ 200 mls/hr 04/21/24 18:00 04/21/24 17:45 Rocephin 2 Gm/Ns 100 Ml IVPB Infused Q24H JOSIE Infusion Potassium Chloride 40 meq/ 520 mls @ 130 mls/hr 04/22/24 08:41 Sodium Chloride IVPB 04/22/24 12:40 ONCE ONE Insulin Aspart 3 - 6 units 04/18/24 08:00 04/22/24 08:17 Insulin Aspart (*Bkc) 100 Units/Ml SUB-Q Not Given TIDWM [facility] Protocol Insulin Aspart 4 units 04/19/24 12:00 04/22/24 08:17 Insulin Aspart (*Bkc) 100 Units/Ml 0.05 units/kg (4 units) Not Given SUB-Q TIDWM [facility] Insulin Glargine 20 units 04/19/24 21:00 04/21/24 20:37 Insulin Glargine (*Bkc) 100 Units/Ml SUB-Q 20 units HS JOSIE Administration Metoclopramide HCl 10 mg 04/18/24 10:09 04/21/24 09:46 Metoclopramide Hcl Inj 10 Mg/2 Ml Vial IV PUSH 10 mg Q6HR PRN Administration Nausea Morphine Sulfate 2 mg 04/17/24 21:58 Morphine Sulfate (*Crx) 2 Mg/Ml Inj IV PUSH Q4H PRN Pain Rated 7-10 Ondansetron HCl 4 mg 04/18/24 19:01 04/22/24 08:16 Ondansetron Inj 4 Mg/2 Ml Vial IV PUSH 4 mg Q6H PRN Administration Nausea And Vomiting Oxycodone HCl 5 mg 04/18/24 19:01 Oxycodone Hcl (*Crx) 5 Mg Tab Ir PO Q4H PRN Pain Rated 7-10 Radiology Results: ITS Impressions Ankle Brachial Index 04/20/24 15:21 IMPRESSION: Moderate stenosis is suggestive bilaterally. Foot MRI 04/20/24 16:58 IMPRESSION: 1. No evidence of osteomyelitis. Labs Labs: Laboratory Results - last 24 hr 04/21/24 04/21/24 04/21/24 08:16 11:43 16:53 WBC RBC Hgb Hct MCV MCH MCHC RDW Plt Count MPV Sodium 136 L Potassium 3.7 Chloride 107 Carbon Dioxide 10 L Anion Gap 19 H BUN 8 D Creatinine 0.50 L Estim Creat Clear Calc 109 Estimated GFR > 60 Glucose 182 H POC Capillary Glucose 175 H 168 H Calcium 8.3 L 04/21/24 04/22/24 04/22/24 20:22 07:05 08:07 WBC 11.8 H RBC 4.75 Hgb 13.4 Hct 39.0 MCV 82.1 MCH 28.2 MCHC 34.4 RDW 12.6 Plt Count 300 MPV 8.7 Sodium 134 L Potassium 2.9 L Chloride 104 Carbon Dioxide 17 L Anion Gap 13 H BUN 6 L Creatinine 0.50 L Estim Creat Clear Calc 109 Estimated GFR > 60 Glucose 151 H POC Capillary Glucose 164 H 159 H Calcium 8.3 L Quality VTE Prophylaxis VTE prophylaxis: pharmacologic ordered
[2024-04-22] MEDS: POTASSIUM CHLORIDE INJ 40 MEQ in SODIUM CHLORIDE 0.9% IV 500 ML 130 MEQ IVPB (09:41)
[2024-04-22] MEDS: METOCLOPRAMIDE HCL INJ 10 MG/2 ML VIAL IV PUSH (09:46)
[2024-04-22] MEDS: hydrALAZINE HCL 20 MG/ML VIAL 10 MG IV PUSH ×2 (09:46→15:21)
--- NOTE | 2024-04-22 10:58 | PCOTNOTE ---
Patient refused treatment this session due to extreme nausea. Patient is unable to sit up at this time. RN is aware.
[2024-04-22 12:13] LABS: Glucose Point of Care 137 mg/dl (65-105)
[2024-04-22 14:00] VITALS: BP 182/86; PULSE 99; RESP 18; TEMP 37.2; O2SAT 100
[2024-04-22] MEDS: SCOPOLAMINE 1 MG PATCH 1 PATCH TRANSDERM (14:44)
[2024-04-22] MEDS: diphenhydrAMINE HCl INJ 50 MG/ML VIAL 25 MG IV PUSH (15:21)
--- NOTE | 2024-04-22 16:03 | P.PN_ITS ---
Progress Note: A&P Assessment and Plan (1) Diabetic infection of left foot: Code(s): E11.628 - Type 2 diabetes mellitus with other skin complications; L08.9 - Local infection of the skin and subcutaneous tissue, unspecified Status: Acute Assessment and Plan: Patient is postop day number 4 after incision and drainage of left forefoot abscess which developed from a plantar ulcer and diabetic foot wound. GORDON show mild vaso-occlusive disease with the GORDON 0.70 to 0.8. She is having significant nausea which is keeping her from being in the take p.o. well. We stopped the Flagyl yesterday no nausea improved a little bit. We will go ahead and stop the Rocephin and start IV Levaquin 750mg Q 24 hours. If she can tolerate this then that can be converted to oral equivalent at discharge. Also stop the Reglan and try using some Phenergan IV for nausea. Continue supportive management. Trend her white blood cell count daily. Subjective Date/time seen: 04/22/24 16:03 Interval history: Patient states her nausea is a little better today but is the worst when she gets up to ambulate to the bathroom. Tolerating some liquids but really no solid food. White [place] 11 [place] [id number]. No fever. Culture show Streptococcus species which is pretty much nolasco sensitive. Exam Extrem: Other: The left foot has decreased redness and swelling. No purulent drainage from the wounds on the left forefoot. There is still some resolving erythema. She has sensation on the toes. She is able to the flex and extend the left great toe. Objective Data Vital Signs Vital Signs: Vital Signs - 24 hr 04/21/24 21:58 04/21/24 20:30 04/22/24 06:00 Temperature 36.4 C 36.8 C Pulse Rate 74 76 Respiratory Rate 20 20 Blood Pressure 189/74 H 194/76 H Pulse Oximetry 100 100 Oxygen Delivery Room Air 04/22/24 14:00 Temperature 37.2 C Pulse Rate 99 Respiratory Rate 18 Blood Pressure 182/86 H Pulse Oximetry 100 Oxygen Delivery Intake/Output Intake/Output: Intake & Output 04/19/24 04/20/24 04/21/24 04/22/24 23:59 23:59 23:59 23:59 Intake Total 1740 4280 3330 1400 Output Total 1200 Balance 540 4280 3330 1400 Meds/Results Medications: Active Medications Generic Name Dose Route Start Last Admin Trade Name Freq PRN Reason Stop Dose Admin Acetaminophen 1,000 mg 04/18/24 19:01 Acetaminophen 500 Mg Tablet PO Q6H PRN Mild Pain (1-3) or Fever Hydrocodone Bitart/Acetaminophen 1 tab 04/18/24 19:01 Hydrocodone/Acetaminophen (*Crx) 5-325 Mg Tablet PO Q4H PRN Pain Rated 4-6 Dextrose 12.5 gm 04/17/24 22:00 Dextrose 50% 25 Gm/50 Ml Syringe IV PUSH PRN PRN Hypoglycemia Protocol Diphenhydramine HCl 25 mg 04/17/24 21:58 04/22/24 15:21 Diphenhydramine Hcl Inj 50 Mg/Ml Vial IV PUSH 25 mg Q6H PRN Administration Nausea And Vomiting Enoxaparin Sodium 40 mg 04/18/24 09:00 04/22/24 08:18 Enoxaparin 40 Mg/0.4 Ml Syringe SUB-Q 40 mg DAILY JOSIE Administration Glucagon 1 mg 04/17/24 22:00 Glucagon For Inj 1 Mg Vial IM PRN PRN Hypoglycemia Protocol Glucose 15 gm 04/17/24 22:00 Glucose Oral Gel 15 Gm Of Glucse In 37.5 Gm Tube PO PRN PRN Hypoglycemia Protocol Hydralazine HCl 10 mg 04/22/24 08:44 04/22/24 15:21 Hydralazine Hcl 20 Mg/Ml Vial IV PUSH 10 mg Q8H PRN Administration Blood Pressure - High Dextrose 1,000 mls @ 100 mls/hr 04/17/24 22:00 Dextrose 5% 1,000 Ml IVPB PRN PRN Hypoglycemia Protocol Sodium Chloride 1,000 mls @ 100 mls/hr 04/18/24 11:10 04/22/24 01:46 Normal Saline Iv IV CONT 100 mls/hr .Q10H JOSIE Administration Levofloxacin/Dextrose 750 mg in 150 mls @ 100 mls/hr 04/22/24 16:00 Levaquin 750 Mg/D5w 150 Ml IVPB Q24H JOSIE Insulin Aspart 3 - 6 units 04/18/24 08:00 04/22/24 12:45 Insulin Aspart (*Bkc) 100 Units/Ml SUB-Q Not Given TIDWM [facility] Protocol Insulin Aspart 4 units 04/19/24 12:00 04/22/24 12:46 Insulin Aspart (*Bkc) 100 Units/Ml 0.05 units/kg (4 units) Not Given SUB-Q TIDWM [facility] Insulin Glargine 20 units 04/19/24 21:00 04/21/24 20:37 Insulin Glargine (*Bkc) 100 Units/Ml SUB-Q 20 units HS JOSIE Administration Morphine Sulfate 2 mg 04/17/24 21:58 Morphine Sulfate (*Crx) 2 Mg/Ml Inj IV PUSH Q4H PRN Pain Rated 7-10 Ondansetron HCl 4 mg 04/18/24 19:01 04/22/24 08:16 Ondansetron Inj 4 Mg/2 Ml Vial IV PUSH 4 mg Q6H PRN Administration Nausea And Vomiting Oxycodone HCl 5 mg 04/18/24 19:01 Oxycodone Hcl (*Crx) 5 Mg Tab Ir PO Q4H PRN Pain Rated 7-10 Pantoprazole Sodium 40 mg 04/23/24 09:00 Pantoprazole Sodium Iv 40 Mg Vial IV PUSH QAM [facility] Promethazine HCl 12.5 mg 04/22/24 16:00 Promethazine Hcl 25 Mg/Ml Ampul IV PUSH Q4H PRN Nausea And Vomiting Saccharomyces Boulardii 250 mg 04/22/24 09:00 04/22/24 12:50 Saccharomyces Boulardii 250 Mg Capsule PO Not Given TID [facility] Scopolamine 1 patch 04/22/24 14:20 04/22/24 14:44 Scopolamine 1 Mg Patch TRANSDERM 1 patch Q72HR [facility] Administration Radiology Results: ITS Impressions Ankle Brachial Index 04/20/24 15:21 IMPRESSION: Moderate stenosis is suggestive bilaterally. Foot MRI 04/20/24 16:58 IMPRESSION: 1. No evidence of osteomyelitis. Labs Labs: Laboratory Results - last 24 hr 04/21/24 04/21/24 04/22/24 16:53 20:22 07:05 WBC 11.8 H RBC 4.75 Hgb 13.4 Hct 39.0 MCV 82.1 MCH 28.2 MCHC 34.4 RDW 12.6 Plt Count 300 MPV 8.7 Sodium 134 L Potassium 2.9 L Chloride 104 Carbon Dioxide 17 L Anion Gap 13 H BUN 6 L Creatinine 0.50 L Estim Creat Clear Calc 109 Estimated GFR > 60 Glucose 151 H POC Capillary Glucose 168 H 164 H Calcium 8.3 L 04/22/24 04/22/24 08:07 12:00 WBC RBC Hgb Hct MCV MCH MCHC RDW Plt Count MPV Sodium Potassium Chloride Carbon Dioxide Anion Gap BUN Creatinine Estim Creat Clear Calc Estimated GFR Glucose POC Capillary Glucose 159 H 137 H Calcium
[2024-04-22 16:30] VITALS: BP 181/79; PULSE 82; RESP 16; TEMP 36.6; O2SAT 98
[2024-04-22] MEDS: levoFLOXacin 750 MG/D5W 150 ML 750 MG/150 ML BAG 100 MG IVPB (16:38)
[2024-04-22 16:57] LABS: Glucose Point of Care 190 mg/dl (65-105)
[2024-04-22 20:00] VITALS: PULSE 82; RESP 16; O2SAT 98
[2024-04-22 20:30] VITALS: BP 173/72; PULSE 78; RESP 16; TEMP 36.1; O2SAT 98
[2024-04-22 21:35] LABS: Glucose Point of Care 183 mg/dl (65-105)
[2024-04-22] MEDS: INSULIN GLARGINE (*BKC) 100 UNITS/ML 20 UNITS SUB-Q (21:35)
[2024-04-23] MEDS: PROMETHAZINE HCL 25 MG/ML AMPUL 12.5 MG IV PUSH ×3 (00:25→21:49)
[2024-04-23] MEDS: ONDANSETRON INJ 4 MG/2 ML VIAL IV PUSH ×2 (03:20→17:17)
[2024-04-23] MEDS: SODIUM CHLORIDE 0.9% IV 1,000 ML 100 ML IV CONT ×2 (03:20→20:00)
[2024-04-23 05:27] LABS: Hematocrit 33.9 % (37.0-47.0); Hemoglobin 11.8 g/dL (12.0-15.0); Mean Corpuscular HGB Conc 34.8 g/dl (32-36); Mean Corpuscular Hemoglobin 28.1 pg (26-34); Mean Corpuscular Volume 80.7 fl (80-100); Mean Platelet Volume 8.8 fl (7.4-10.4); Platelet Count Result 271 k/mm3 (150-375); Red Cell Distribution Width 12.8 % (11.5-14.5); White Blood Count 10.1 K/mm3 (4.5-10.0)
[2024-04-23 05:36] LABS: Anion Gap 8 mmol/L (4-12); Blood Urea Nitrogen 7 mg/dL (7-17); Carbon Dioxide 21 mmol/L (22-30); Chloride 103 mmol/L (98-107); Estimated CRCL calculation 93 ml/min; Estimated Glomerular Filt Rate > 60; Glucose 156 mg/dL (65-110); Potassium 3.2 mmol/L (3.4-5.0); Sodium 132 mmol/L (137-145)
[2024-04-23 05:54] VITALS: BP 157/68; PULSE 75; RESP 16; TEMP 36.6; O2SAT 97
--- NOTE | 2024-04-23 07:27 | P.PNIM_ITS ---
Progress Note: A&P Assessment and Plan (1) Diabetes: Qualifiers: Diabetes mellitus complication status: with hyperglycemia Diabetes mellitus [employer] insulin use: without laborer [employer] use Diabetes mellitus type: type 2 Qualified Code(s): E11.65 - Type 2 diabetes mellitus with hyperglycemia Code(s): E11.9 - Type 2 diabetes mellitus without complications Status: Acute (2) Diabetic foot ulcer: Qualifiers: Diabetes mellitus type: type 2 Diabetic foot ulcer location: toe Laterality: left Non-pressure ulcer stage: unspecified non-pressure ulcer stage Qualified Code(s): E11.621 - Type 2 diabetes mellitus with foot ulcer; L97.529 - Non-pressure chronic ulcer of other part of left foot with unspecified severit y Code(s): E11.621 - Type 2 diabetes mellitus with foot ulcer; L97.509 - Non-pressure chronic ulcer of other part of unspecified foot with unspecified severity Status: Acute (3) Cellulitis of left foot: Code(s): L03.116 - Cellulitis of left lower limb Status: Acute Plan 63 y/o F presents here with wound to left foot with PMH of shingles, migraines, presented to [facility] for further evaluation of left foot wound and left leg redness.? She initially believes wound developed after she was walking barefoot in her apartment and she stepped on something sharp causing a cut. ?After injury she cleaned the wound with peroxide and placed a bandage.? Initially sought care with her PCP started her on doxycycline on 04/14, update her Tdap, and an x-ray was obtained.? Foot XR on 04/14 was unremarkable. ?However, despite ABX initiation the area has continued to increase in redness, warmth, and tenderness.? Now having sloughing of the skin and scant yellow drainage.? Diabetic foot ulcer: Qualifiers: Diabetes mellitus type: type 2 Diabetic foot ulcer location: toe Laterality: left Non-pressure ulcer stage: unspecified non-pressure ulcer stage Qualified Code(s): E11.621 - Type 2 diabetes mellitus with foot ulcer; L97.529 - Non-pressure chronic ulcer of other part of left foot with unspecified severity Code(s): E11.621 - Type 2 diabetes mellitus with foot ulcer; L97.509 - Non-pressure chronic ulcer of other part of unspecified foot with unspecified severity Status: Acute Assessment and Plan: - CT foot: 1. Puncture wound plantar to the head of the first metatarsal with small region of underlying phlegmonous change without organized abscess, retained foreign body, soft tissue gas or associated osteomyelitis. - wound documented via photo at beginning of admission, plan to update. on vancomycin IV, cefepime IV, and Flagyl p.o - lactic not completed during initial evaluation, add procalcitonin and CRP - generally surgery consulted for possible surgical debridement versus amputation, awaiting formal recs - analgesics and antipyretics p.r.n. - wound nurse consulted S/P Complex incision and drainage of diabetic left foot abscess 04/18 patient is afebrile over the night, continue current antibiotics, change Flagyl to IV, patient cannot tolerate oral Flagyl MRI today- 04/20 04/21- wound culture- group B strep flagyl stopped ceftriaxone IV continue 04/22- surgery notes reviewed: Will stop the Flagyl to see if that is causing her nausea. There been no anaerobes cultured and her blood or from the wound culture. The foot looks better. The MRI shows no evidence of osteomyelitis. Will plan on extended course of oral antibiotics when she leaves the hospital. When she is eating better than plan on discharge home with oral antibiotics for about the next 4 weeks. - continue ceftriaxone 04/23- per surgery- stop the Rocephin and start IV Levaquin 750mg Q 24 hours. If she can tolerate this then that can be converted to oral equivalent at discharge WBC stable. Afebrile. Cellulitis of left foot: Code(s): L03.116 - Cellulitis of left lower limb Status: Acute Assessment and Plan: see above Bacteremia Blood culture in [facility] Gram-positive cocci Repeated blood culture- negative will stop vanc surgery following: Continue IV antibiotics and daily gauze dressing changes. We will order an MRI of the foot today to further evaluate for possible osteomyelitis. If she has evidence of osteomyelitis on MRI, then she will need a PICC line and 6 weeks of IV antibiotics. MRI- IMPRESSION: 1. No evidence of osteomyelitis. -see above Uncontrolled type 2 diabetes-new - initial glucose 271 and A1C 13% - started on Lantus 13 units HS - hypoglycemia protocol - POC blood glucose ACHS - correct regimen ordered - moderate dose TIDWM - special education paraeducator and dietitian consulted 04/18 glucose is not controlled and target Increase Lantus 20 units q.h.s., start aspart 4 u before each meal, continue sliding scale 11/6- bc better- 120-160's motion sickness # nausea and vomiting Given 1 dose of Zofran with minimal relief. reglan prn benadryl prn will try scopolamine patch stopped the Reglan and try using some Phenergan IV for nausea. Continue supportive management - H pylori added - carafate po - protonox bid - will consult GI Hyponatremia Mild hyponatremia # hypokalemia -IV replacement ordered- monitor Diet: diabetic GI Prophylaxis: not currently indicated DVT Prophylaxis: Lovenox Lines: peripheral Code Status: full code Subjective Date/time seen: 04/23/24 07:27 Interval history: Patient states her nausea is a little better today but is the worst when she gets up to ambulate to the bathroom. Tolerating some liquids but really no solid food. White [place] 11 [place] [id number]. No fever. Culture show Streptococcus species which is pretty much nolasco sensitive. Review of Systems Review of Systems: nausea somewhat better All systems reviewed & are unremarkable except as noted in HPI and below Exam Narrative: GENERAL: Pleasant, in no acute distress. Well-nourished. - EYES: EOMI. Anicteric. - HENT: Moist mucous membranes. - LUNGS: Clear to auscultation bilateral ly, no wheezing, rhonchi, or rales. - CARDIOVASCULAR: Regular rate and rhyth m. No murmur. No JVD. - ABDOMEN: Soft, non-tender and non-dist ended. No palpable masses. - EXTREMITIES: No edema. Peripheral puls es 2+. Non-tender. - NEUROLOGIC: No focal neurological defi cits. CN II-XII grossly intact. - PSYCHIATRIC: Awake, Alert and oriented x 3. Appropriate mood and affect. - SKIN: S/p incision and drainage of l t foot abscess. Two Crystal drains in place. Erythema and swelling improving. - LYMPH: No cervical lymphadenopathy. Const: General: no acute distress and uncomfortable Other: , female, ill appearing HENMT: Face/Nose/Sinus: Normal nares present Mouth: Yes moist mucous membranes Eyes: General: appearance normal, both eyes and all related structures Sclera: sclerae normal Pupils: Equal, round and reactive pupils present EOM: EOMs intact bilaterally Resp: Effort & Inspection: normal respiratory effort Auscultation: clear to auscultation bilaterally Cardio: Rate: regular rate Rhythm: regular rhythm Other: S1-S2 present without murmur, rub, ectopy GI: Other: Abdomen soft, nondistended, nontender Skin: General skin exam: normal color, no rashes or lesions noted and wounds noted Wounds: wounds noted Other: Open wound to plantar aspect of left foot near base of 1st toe measuring alivia roximately 1 cm with scant/diffuse yellow drainage. Sloughing starting at base of left 1st toe and stops near arch. Sloughing to dorsal aspect of foot. Erythema prominent to dorsal aspect of foot but does not extend to 2nd through 5th toe which are pale with poor cap refill. Erythema streaking up left leg involving the distal 1/3 of her calf. DP pulses intact. Skin moist near forehead. Neuro: Cranial nerves: Yes Equal, round and reactive pupils present Speech: normal speech Motor exam (neuro): 5/5 motor strength present throughout Sensory Exam: normal sensation Other: A&O x4 Extrem: General: normal exam except as noted Other: No edema. Psych: Mental Status: mental status grossly normal Affect: normal affect Other: Good insight and judgment, pleasant. Objective Data Vital Signs Vital Signs: Vital Signs - 24 hr 04/22/24 14:00 04/22/24 16:30 04/22/24 20:00 Temperature 98.9 F 97.9 F Pulse Rate 99 82 82 Respiratory Rate 18 16 16 Blood Pressure 182/86 H 181/79 H Pulse Oximetry 100 98 98 Oxygen Delivery Room Air 04/22/24 20:30 04/23/24 05:54 Temperature 97.0 F L 97.8 F Pulse Rate 78 75 Respiratory Rate 16 16 Blood Pressure 173/72 H 157/68 H Pulse Oximetry 98 97 Oxygen Delivery Intake/Output Intake/Output: Intake & Output 04/20/24 04/21/24 04/22/24 04/23/24 23:59 23:59 23:59 23:59 Intake Total 4280 3330 2400 1200 Balance 4280 3330 2400 1200 Meds/Results Medications: Active Medications Generic Name Dose Route Start Last Admin Trade Name Freq PRN Reason Stop Dose Admin Acetaminophen 1,000 mg 04/18/24 19:01 Acetaminophen 500 Mg Tablet PO Q6H PRN Mild Pain (1-3) or Fever Hydrocodone Bitart/Acetaminophen 1 tab 04/18/24 19:01 Hydrocodone/Acetaminophen (*Crx) 5-325 Mg Tablet PO Q4H PRN Pain Rated 4-6 Dextrose 12.5 gm 04/17/24 22:00 Dextrose 50% 25 Gm/50 Ml Syringe IV PUSH PRN PRN Hypoglycemia Protocol Diphenhydramine HCl 25 mg 04/17/24 21:58 04/22/24 15:21 Diphenhydramine Hcl Inj 50 Mg/Ml Vial IV PUSH 25 mg Q6H PRN Administration Nausea And Vomiting Enoxaparin Sodium 40 mg 04/18/24 09:00 04/22/24 08:18 Enoxaparin 40 Mg/0.4 Ml Syringe SUB-Q 40 mg DAILY JOSIE Administration Glucagon 1 mg 04/17/24 22:00 Glucagon For Inj 1 Mg Vial IM PRN PRN Hypoglycemia Protocol Glucose 15 gm 04/17/24 22:00 Glucose Oral Gel 15 Gm Of Glucse In 37.5 Gm Tube PO PRN PRN Hypoglycemia Protocol Hydralazine HCl 10 mg 04/22/24 08:44 04/22/24 15:21 Hydralazine Hcl 20 Mg/Ml Vial IV PUSH 10 mg Q8H PRN Administration Blood Pressure - High Dextrose 1,000 mls @ 100 mls/hr 04/17/24 22:00 Dextrose 5% 1,000 Ml IVPB PRN PRN Hypoglycemia Protocol Sodium Chloride 1,000 mls @ 100 mls/hr 04/18/24 11:10 04/23/24 03:20 Normal Saline Iv IV CONT 100 mls/hr .Q10H JSOIE Administration Levofloxacin/Dextrose 750 mg in 150 mls @ 100 mls/hr 04/22/24 16:00 04/22/24 16:38 Levaquin 750 Mg/D5w 150 Ml IVPB 100 mls/hr Q24H JOSIE Administration Insulin Aspart 3 - 6 units 04/18/24 08:00 04/22/24 16:54 Insulin Aspart (*Bkc) 100 Units/Ml SUB-Q Not Given TIDWM [facility] Protocol Insulin Aspart 4 units 04/19/24 12:00 04/22/24 16:54 Insulin Aspart (*Bkc) 100 Units/Ml 0.05 units/kg (4 units) Not Given SUB-Q TIDWM [facility] Insulin Glargine 20 units 04/19/24 21:00 04/22/24 21:35 Insulin Glargine (*Bkc) 100 Units/Ml SUB-Q 20 units HS JOSIE Administration Morphine Sulfate 2 mg 04/17/24 21:58 Morphine Sulfate (*Crx) 2 Mg/Ml Inj IV PUSH Q4H PRN Pain Rated 7-10 Ondansetron HCl 4 mg 04/18/24 19:01 04/23/24 03:20 Ondansetron Inj 4 Mg/2 Ml Vial IV PUSH 4 mg Q6H PRN Administration Nausea And Vomiting Oxycodone HCl 5 mg 04/18/24 19:01 Oxycodone Hcl (*Crx) 5 Mg Tab Ir PO Q4H PRN Pain Rated 7-10 Pantoprazole Sodium 40 mg 04/23/24 09:00 Pantoprazole Sodium Iv 40 Mg Vial IV PUSH QAM JOSIE Promethazine HCl 12.5 mg 04/22/24 16:00 04/23/24 00:25 Promethazine Hcl 25 Mg/Ml Ampul IV PUSH 12.5 mg Q4H PRN Administration Nausea And Vomiting Saccharomyces Boulardii 250 mg 04/22/24 09:00 04/22/24 16:55 Saccharomyces Boulardii 250 Mg Capsule PO Not Given TID [facility] Scopolamine 1 patch 04/22/24 14:20 04/22/24 14:44 Scopolamine 1 Mg Patch TRANSDERM 1 patch Q72HR JOSIE Administration Radiology Results: ITS Impressions Ankle Brachial Index 04/20/24 15:21 IMPRESSION: Moderate stenosis is suggestive bilaterally. Foot MRI 04/20/24 16:58 IMPRESSION: 1. No evidence of osteomyelitis. Labs Labs: Laboratory Results - last 24 hr 04/22/24 04/22/24 04/22/24 07:05 08:07 12:00 WBC 11.8 H RBC 4.75 Hgb 13.4 Hct 39.0 MCV 82.1 MCH 28.2 MCHC 34.4 RDW 12.6 Plt Count 300 MPV 8.7 Sodium 134 L Potassium 2.9 L Chloride 104 Carbon Dioxide 17 L Anion Gap 13 H BUN 6 L Creatinine 0.50 L Estim Creat Clear Calc 109 Estimated GFR > 60 Glucose 151 H POC Capillary Glucose 159 H 137 H Calcium 8.3 L 04/22/24 04/22/24 04/23/24 16:52 21:33 05:21 WBC 10.1 H RBC 4.20 Hgb 11.8 L Hct 33.9 L MCV 80.7 MCH 28.1 MCHC 34.8 RDW 12.8 Plt Count 271 MPV 8.8 Sodium Potassium Chloride Carbon Dioxide Anion Gap BUN Creatinine Estim Creat Clear Calc Estimated GFR Glucose POC Capillary Glucose 190 H 183 H Calcium 04/23/24 05:22 WBC RBC Hgb Hct MCV MCH MCHC RDW Plt Count MPV Sodium 132 L Potassium 3.2 L Chloride 103 Carbon Dioxide 21 L Anion Gap 8 BUN 7 Creatinine 0.60 L Estim Creat Clear Calc 93 Estimated GFR > 60 Glucose 156 H POC Capillary Glucose Calcium 8.0 L Quality VTE Prophylaxis VTE prophylaxis: pharmacologic ordered
[2024-04-23] MEDS: diphenhydrAMINE HCl INJ 50 MG/ML VIAL 25 MG IV PUSH (08:09)
[2024-04-23] MEDS: PANTOPRAZOLE SODIUM IV 40 MG VIAL IV PUSH ×2 (08:09→17:17)
[2024-04-23] MEDS: POTASSIUM CHLORIDE INJ 40 MEQ in SODIUM CHLORIDE 0.9% IV 500 ML 130 MEQ IVPB (08:09)
[2024-04-23] MEDS: ENOXAPARIN 40 MG/0.4 ML SYRINGE SUB-Q (08:10)
[2024-04-23 09:10] LABS: Glucose Point of Care 137 mg/dl (65-105)
--- NOTE | 2024-04-23 10:32 | P.PNGS_ITS ---
Progress Note: A&P Assessment and Plan (1) Foot abscess, left: Code(s): L02.612 - Cutaneous abscess of left foot Status: Acute Assessment and Plan: marked improvement s/p I and D, cont drains and local wound care, cont abx, cont to encourage po intake, home soon c po abx, f/u c Dr. Dominique as outpt for drain removal Subjective Subjective Date/Time Seen: 04/23/24 10:32 Interval history: feels ok, nausea somewhat improved, no pain Review of Systems Review of Systems: All systems reviewed & are unremarkable except as noted in HPI and below Exam Const: General: cooperative, comfortable, no acute distress and ill appearing Resp: Auscultation: clear to auscultation bilaterally Cardio: Rate: regular rate Rhythm: regular rhythm GI: Inspection: normal to inspection Extrem: Other: LLE - dressing C/D/I Objective Data Vital Signs Vital Signs: Vital Signs - 24 hr 04/22/24 14:00 04/22/24 16:30 04/22/24 20:00 Temperature 37.2 C 36.6 C Pulse Rate 99 82 82 Respiratory Rate 18 16 16 Blood Pressure 182/86 H 181/79 H Pulse Oximetry 100 98 98 Oxygen Delivery Room Air 04/22/24 20:30 04/23/24 05:54 Temperature 36.1 C L 36.6 C Pulse Rate 78 75 Respiratory Rate 16 16 Blood Pressure 173/72 H 157/68 H Pulse Oximetry 98 97 Oxygen Delivery Intake/Output Intake/Output: Intake & Output 04/20/24 04/21/24 04/22/24 04/23/24 23:59 23:59 23:59 23:59 Intake Total 4280 3330 2550 1200 Balance 4280 3330 2550 1200 Meds/Results Medications: Active Medications Generic Name Dose Route Start Last Admin Trade Name Freq PRN Reason Stop Dose Admin Acetaminophen 1,000 mg 04/18/24 19:01 Acetaminophen 500 Mg Tablet PO Q6H PRN Mild Pain (1-3) or Fever Hydrocodone Bitart/Acetaminophen 1 tab 04/18/24 19:01 Hydrocodone/Acetaminophen (*Crx) 5-325 Mg Tablet PO Q4H PRN Pain Rated 4-6 Dextrose 12.5 gm 04/17/24 22:00 Dextrose 50% 25 Gm/50 Ml Syringe IV PUSH PRN PRN Hypoglycemia Protocol Diphenhydramine HCl 25 mg 04/17/24 21:58 04/23/24 08:09 Diphenhydramine Hcl Inj 50 Mg/Ml Vial IV PUSH 25 mg Q6H PRN Administration Nausea And Vomiting Enoxaparin Sodium 40 mg 04/18/24 09:00 04/23/24 08:10 Enoxaparin 40 Mg/0.4 Ml Syringe SUB-Q 40 mg DAILY JOSIE Administration Glucagon 1 mg 04/17/24 22:00 Glucagon For Inj 1 Mg Vial IM PRN PRN Hypoglycemia Protocol Glucose 15 gm 04/17/24 22:00 Glucose Oral Gel 15 Gm Of Glucse In 37.5 Gm Tube PO PRN PRN Hypoglycemia Protocol Hydralazine HCl 10 mg 04/22/24 08:44 04/22/24 15:21 Hydralazine Hcl 20 Mg/Ml Vial IV PUSH 10 mg Q8H PRN Administration Blood Pressure - High Dextrose 1,000 mls @ 100 mls/hr 04/17/24 22:00 Dextrose 5% 1,000 Ml IVPB PRN PRN Hypoglycemia Protocol Sodium Chloride 1,000 mls @ 100 mls/hr 04/18/24 11:10 04/23/24 03:20 Normal Saline Iv IV CONT 100 mls/hr .Q10H JOSIE Administration Levofloxacin/Dextrose 750 mg in 150 mls @ 100 mls/hr 04/22/24 16:00 04/22/24 18:08 Levaquin 750 Mg/D5w 150 Ml IVPB Infused Q24H JOSIE Infusion Potassium Chloride 40 meq/ 520 mls @ 130 mls/hr 04/23/24 07:29 04/23/24 08:09 Sodium Chloride IVPB 04/23/24 11:28 130 mls/hr ONCE ONE Administration Insulin Aspart 3 - 6 units 04/18/24 08:00 04/23/24 09:16 Insulin Aspart (*Bkc) 100 Units/Ml SUB-Q Not Given TIDWM [facility] Protocol Insulin Aspart 4 units 04/19/24 12:00 04/23/24 09:17 Insulin Aspart (*Bkc) 100 Units/Ml 0.05 units/kg (4 units) Not Given SUB-Q TIDWM [facility] Insulin Glargine 20 units 04/19/24 21:00 04/22/24 21:35 Insulin Glargine (*Bkc) 100 Units/Ml SUB-Q 20 units HS JOSIE Administration Morphine Sulfate 2 mg 04/17/24 21:58 Morphine Sulfate (*Crx) 2 Mg/Ml Inj IV PUSH Q4H PRN Pain Rated 7-10 Ondansetron HCl 4 mg 04/18/24 19:01 04/23/24 03:20 Ondansetron Inj 4 Mg/2 Ml Vial IV PUSH 4 mg Q6H PRN Administration Nausea And Vomiting Oxycodone HCl 5 mg 04/18/24 19:01 Oxycodone Hcl (*Crx) 5 Mg Tab Ir PO Q4H PRN Pain Rated 7-10 Pantoprazole Sodium 40 mg 04/23/24 09:00 04/23/24 08:09 Pantoprazole Sodium Iv 40 Mg Vial IV PUSH 40 mg QAM JOSIE Administration Promethazine HCl 12.5 mg 04/22/24 16:00 04/23/24 00:25 Promethazine Hcl 25 Mg/Ml Ampul IV PUSH 12.5 mg Q4H PRN Administration Nausea And Vomiting Saccharomyces Boulardii 250 mg 04/22/24 09:00 04/23/24 08:10 Saccharomyces Boulardii 250 Mg Capsule PO Not Given TID JOSIE Scopolamine 1 patch 04/22/24 14:20 04/22/24 14:44 Scopolamine 1 Mg Patch TRANSDERM 1 patch Q72HR JOSIE Administration Radiology Results: ITS Impressions Ankle Brachial Index 04/20/24 15:21 IMPRESSION: Moderate stenosis is suggestive bilaterally. Foot MRI 04/20/24 16:58 IMPRESSION: 1. No evidence of osteomyelitis. Labs Labs: Laboratory Results - last 24 hr 04/22/24 04/22/24 04/22/24 12:00 16:52 21:33 WBC RBC Hgb Hct MCV MCH MCHC RDW Plt Count MPV Sodium Potassium Chloride Carbon Dioxide Anion Gap BUN Creatinine Estim Creat Clear Calc Estimated GFR Glucose POC Capillary Glucose 137 H 190 H 183 H Calcium 04/23/24 04/23/24 04/23/24 05:21 05:22 09:07 WBC 10.1 H RBC 4.20 Hgb 11.8 L Hct 33.9 L MCV 80.7 MCH 28.1 MCHC 34.8 RDW 12.8 Plt Count 271 MPV 8.8 Sodium 132 L Potassium 3.2 L Chloride 103 Carbon Dioxide 21 L Anion Gap 8 BUN 7 Creatinine 0.60 L Estim Creat Clear Calc 93 Estimated GFR > 60 Glucose 156 H POC Capillary Glucose 137 H Calcium 8.0 L
[2024-04-23 12:12] LABS: Glucose Point of Care 134 mg/dl (65-105)
[2024-04-23] MEDS: levoFLOXacin 750 MG/D5W 150 ML 750 MG/150 ML BAG 100 MG IVPB (15:31)
[2024-04-23 15:40] VITALS: BP 172/66; PULSE 73; RESP 18; TEMP 36.9; O2SAT 96
[2024-04-23 17:08] LABS: Glucose Point of Care 146 mg/dl (65-105)
[2024-04-23] MEDS: SUCRALFATE SUSP 100 MG/ML 10 ML UDC 1000 MG PO ×2 (17:17→21:46)
[2024-04-23 20:00] VITALS: O2SAT 99
[2024-04-23 22:09] LABS: Glucose Point of Care 147 mg/dl (65-105)
[2024-04-23 22:18] VITALS: BP 178/73; PULSE 82; RESP 14; TEMP 36.7; O2SAT 95
[2024-04-24] MEDS: ONDANSETRON INJ 4 MG/2 ML VIAL IV PUSH (01:04)
[2024-04-24] MEDS: PROMETHAZINE HCL 25 MG/ML AMPUL 12.5 MG IV PUSH ×2 (02:38→06:36)
[2024-04-24] MEDS: diphenhydrAMINE HCl INJ 50 MG/ML VIAL 25 MG IV PUSH (05:27)
[2024-04-24 05:51] LABS: Hematocrit 37.3 % (37.0-47.0); Hemoglobin 12.9 g/dL (12.0-15.0); Mean Corpuscular HGB Conc 34.6 g/dl (32-36); Mean Corpuscular Hemoglobin 27.9 pg (26-34); Mean Corpuscular Volume 80.7 fl (80-100); Platelet Count Result 228 k/mm3 (150-375); Red Blood Count 4.62 M/mm3 (4.2-5.4); White Blood Count 8.6 K/mm3 (4.5-10.0)
[2024-04-24 06:17] LABS: Anion Gap 13 mmol/L (4-12); Blood Urea Nitrogen 6 mg/dL (7-17); Carbon Dioxide 19 mmol/L (22-30); Chloride 102 mmol/L (98-107); Estimated CRCL calculation 109 ml/min; Estimated Glomerular Filt Rate > 60; Glucose 173 mg/dL (65-110); Potassium 2.7 mmol/L (3.4-5.0); Sodium 134 mmol/L (137-145)
[2024-04-24] MEDS: SODIUM CHLORIDE 0.9% IV 1,000 ML 100 ML IV CONT ×2 (06:30→17:11)
[2024-04-24] MEDS: SUCRALFATE SUSP 100 MG/ML 10 ML UDC 1000 MG PO ×4 (06:32→21:23)
[2024-04-24 07:25] VITALS: BP 185/79; PULSE 75; RESP 16; TEMP 36.4; O2SAT 96
--- NOTE | 2024-04-24 07:34 | P.PNIM_ITS ---
Progress Note: A&P Assessment and Plan (1) Diabetic foot ulcer: Qualifiers: Diabetes mellitus type: type 2 Diabetic foot ulcer location: toe Laterality: left Non-pressure ulcer stage: unspecified non-pressure ulcer stage Qualified Code(s): E11.621 - Type 2 diabetes mellitus with foot ulcer; L97.529 - Non-pressure chronic ulcer of other part of left foot with unspecified severity Code(s): E11.621 - Type 2 diabetes mellitus with foot ulcer; L97.509 - Non-pressure chronic ulcer of other part of unspecified foot with unspecified severity Status: Acute Assessment and Plan: - CT foot: 1. Puncture wound plantar to the head of the first metatarsal with small region of underlying phlegmonous change without organized abscess, retained foreign body, soft tissue gas or associated osteomyelitis. - wound documented via photo at beginning of admission, plan to update. on vancomycin IV, cefepime IV, and Flagyl p.o - lactic not completed during initial evaluation, add procalcitonin and CRP - generally surgery consulted for possible surgical debridement versus amputation, awaiting formal recs - analgesics and antipyretics p.r.n. - wound nurse consulted S/P Complex incision and drainage of diabetic left foot abscess 04/18 patient is afebrile over the night, continue current antibiotics, change Flagyl to IV, patient cannot tolerate oral Flagyl MRI today- 04/20 04/21- wound culture- group B strep flagyl stopped ceftriaxone IV continue 04/22- surgery notes reviewed: Will stop the Flagyl to see if that is causing her nausea. There been no anaerobes cultured and her blood or from the wound culture. The foot looks better. The MRI shows no evidence of osteomyelitis. Will plan on extended course of oral antibiotics when she leaves the hospital. When she is eating better than plan on discharge home with oral antibiotics for about the next 4 weeks. levaquin IV- continue until able to take PO- then anticipate discharge 04/24- will continue levaquin IV today- and if able to tolerate everything today- will switch to PO and anticipate discharge home (2) Cellulitis of left foot: Code(s): L03.116 - Cellulitis of left lower limb Status: Acute Assessment and Plan: see above (3) Bacteremia: Code(s): R78.81 - Bacteremia Status: Acute Assessment and Plan: lood culture in [place] grows Gram-positive cocci Repeated blood culture- negative will stop vanc surgery following: Continue IV antibiotics and daily gauze dressing changes. We will order an MRI of the foot today to further evaluate for possible osteomyelitis. If she has evidence of osteomyelitis on MRI, then she will need a PICC line and 6 weeks of IV antibiotics. MRI- IMPRESSION: 1. No evidence of osteomyelitis. (4) Uncontrolled diabetes mellitus: Status: Acute Assessment and Plan: - initial glucose 271 and A1C 13% - started on Lantus 13 units HS - hypoglycemia protocol - POC blood glucose ACHS - correct regimen ordered - moderate dose TIDWM - tobacco educator and dietitian consulted 04/18 glucose is not controlled and target Increase Lantus 20 units q.h.s., start aspart 4 u before each meal, continue sliding scale 04/20- bc better- 120-160's insulin was not given due to pt not eating well at all- she was able to take few bites and has protein supplement ordered and available- encourage to drink with ice-few sips at a time (5) Nausea & vomiting: Code(s): R11.2 - Nausea with vomiting, unspecified Status: Acute Assessment and Plan: stopped flagyl 04/21- could be reason for her nausea. Given 1 dose of Zofran with minimal relief. reglan prn benadryl prn scopolamine patch, compazine, phenergan- all with very little or no relief -will order H pylori and add GI consult 04/24- nausea better today0 egd/colonoscopy as an outpt Plan Diet: diabetic GI Prophylaxis: not currently indicated DVT Prophylaxis: Lovenox Lines: peripheral Time Spent With Patient Time with patient: Greater than 35 minutes Subjective Date/time seen: 04/24/24 07:34 Interval history: Seen and examined this am. GI was consulted for eval of continuous nausea. encouraged protein shakes. Nausea improved today- able to eat and drink some. Review of Systems Review of Systems: nausea improved Cardiovascular: Cardiovascular: Denies chest pain Musculoskeletal: Musculoskeletal: Denies back pain Exam Const: General: comfortable Resp: Effort & Inspection: normal respiratory effort Cardio: Rate: regular rate Rhythm: regular rhythm GI: Auscultation: normal bowel sounds Objective Data Vital Signs Vital Signs: Vital Signs - 24 hr 04/23/24 15:40 04/23/24 22:18 04/23/24 20:00 Temperature 98.5 F 98.0 F Pulse Rate 73 82 Respiratory Rate 18 14 Blood Pressure 172/66 H 178/73 H Pulse Oximetry 96 95 99 Oxygen Delivery Room Air 04/24/24 07:25 Temperature 97.6 F Pulse Rate 75 Respiratory Rate 16 Blood Pressure 185/79 H Pulse Oximetry 96 Oxygen Delivery Intake/Output Intake/Output: Intake & Output 04/21/24 04/22/24 04/23/24 04/24/24 23:59 23:59 23:59 23:59 Intake Total 3330 3070 3170 1400 Balance 3330 3070 3170 1400 Meds/Results Medications: Active Medications Generic Name Dose Route Start Last Admin Trade Name Freq PRN Reason Stop Dose Admin Acetaminophen 1,000 mg 04/18/24 19:01 Acetaminophen 500 Mg Tablet PO Q6H PRN Mild Pain (1-3) or Fever Hydrocodone Bitart/Acetaminophen 1 tab 04/18/24 19:01 Hydrocodone/Acetaminophen (*Crx) 5-325 Mg Tablet PO Q4H PRN Pain Rated 4-6 Dextrose 12.5 gm 04/17/24 22:00 Dextrose 50% 25 Gm/50 Ml Syringe IV PUSH PRN PRN Hypoglycemia Protocol Diphenhydramine HCl 25 mg 04/17/24 21:58 04/24/24 05:27 Diphenhydramine Hcl Inj 50 Mg/Ml Vial IV PUSH 25 mg Q6H PRN Administration Nausea And Vomiting Enoxaparin Sodium 40 mg 04/18/24 09:00 04/23/24 08:10 Enoxaparin 40 Mg/0.4 Ml Syringe SUB-Q 40 mg DAILY JOSIE Administration Glucagon 1 mg 04/17/24 22:00 Glucagon For Inj 1 Mg Vial IM PRN PRN Hypoglycemia Protocol Glucose 15 gm 04/17/24 22:00 Glucose Oral Gel 15 Gm Of Glucse In 37.5 Gm Tube PO PRN PRN Hypoglycemia Protocol Hydralazine HCl 10 mg 04/22/24 08:44 04/22/24 15:21 Hydralazine Hcl 20 Mg/Ml Vial IV PUSH 10 mg Q8H PRN Administration Blood Pressure - High Dextrose 1,000 mls @ 100 mls/hr 04/17/24 22:00 Dextrose 5% 1,000 Ml IVPB PRN PRN Hypoglycemia Protocol Sodium Chloride 1,000 mls @ 100 mls/hr 04/18/24 11:10 04/24/24 06:30 Normal Saline Iv IV CONT 100 mls/hr .Q10H JOSIE Administration Levofloxacin/Dextrose 750 mg in 150 mls @ 100 mls/hr 04/22/24 16:00 04/23/24 17:01 Levaquin 750 Mg/D5w 150 Ml IVPB Infused Q24H JOSIE Infusion Potassium Chloride 40 meq/ 520 mls @ 130 mls/hr 04/24/24 07:32 Sodium Chloride IVPB 04/24/24 11:31 ONCE ONE Insulin Aspart 3 - 6 units 04/18/24 08:00 04/23/24 17:18 Insulin Aspart (*Bkc) 100 Units/Ml SUB-Q Not Given TIDWM [facility] Protocol Insulin Aspart 4 units 04/19/24 12:00 04/23/24 17:18 Insulin Aspart (*Bkc) 100 Units/Ml 0.05 units/kg (4 units) Not Given SUB-Q TIDWM [facility] Insulin Glargine 20 units 04/19/24 21:00 04/23/24 21:56 Insulin Glargine (*Bkc) 100 Units/Ml SUB-Q Not Given [facility] Morphine Sulfate 2 mg 04/17/24 21:58 Morphine Sulfate (*Crx) 2 Mg/Ml Inj IV PUSH Q4H PRN Pain Rated 7-10 Ondansetron HCl 4 mg 04/18/24 19:01 04/24/24 01:04 Ondansetron Inj 4 Mg/2 Ml Vial IV PUSH 4 mg Q6H PRN Administration Nausea And Vomiting Oxycodone HCl 5 mg 04/18/24 19:01 Oxycodone Hcl (*Crx) 5 Mg Tab Ir PO Q4H PRN Pain Rated 7-10 Pantoprazole Sodium 40 mg 04/23/24 17:00 04/23/24 17:17 Pantoprazole Sodium Iv 40 Mg Vial IV PUSH 40 mg BID JOSIE Administration Promethazine HCl 12.5 mg 04/22/24 16:00 04/24/24 06:36 Promethazine Hcl 25 Mg/Ml Ampul IV PUSH 12.5 mg Q4H PRN Administration Nausea And Vomiting Saccharomyces Boulardii 250 mg 04/22/24 09:00 04/23/24 17:18 Saccharomyces Boulardii 250 Mg Capsule PO Not Given TID JOSIE Scopolamine 1 patch 04/22/24 14:20 04/22/24 14:44 Scopolamine 1 Mg Patch TRANSDERM 1 patch Q72HR JOSIE Administration Sucralfate 1,000 mg 04/23/24 16:30 04/24/24 06:32 Sucralfate Susp 100 Mg/Ml 10 Ml Udc PO 1,000 mg ACHS JOSIE Administration Radiology Results: ITS Impressions Ankle Brachial Index 04/20/24 15:21 IMPRESSION: Moderate stenosis is suggestive bilaterally. Foot MRI 04/20/24 16:58 IMPRESSION: 1. No evidence of osteomyelitis. Labs Labs: Laboratory Results - last 24 hr 04/23/24 04/23/24 04/23/24 09:07 12:09 17:02 WBC RBC Hgb Hct MCV MCH MCHC RDW Plt Count MPV Sodium Potassium Chloride Carbon Dioxide Anion Gap BUN Creatinine Estim Creat Clear Calc Estimated GFR Glucose POC Capillary Glucose 137 H 134 H 146 H Calcium 04/23/24 04/24/24 21:46 05:22 WBC 8.6 RBC 4.62 Hgb 12.9 Hct 37.3 MCV 80.7 MCH 27.9 MCHC 34.6 RDW 13.0 Plt Count 228 MPV 9.0 Sodium 134 L Potassium 2.7 L* Chloride 102 Carbon Dioxide 19 L Anion Gap 13 H BUN 6 L Creatinine 0.50 L Estim Creat Clear Calc 109 Estimated GFR > 60 Glucose 173 H POC Capillary Glucose 147 H Calcium 8.0 L Quality VTE Prophylaxis VTE prophylaxis: pharmacologic ordered
--- NOTE | 2024-04-24 07:44 | P.PNIM_ITS ---
Progress Note: A&P Assessment and Plan (1) Diabetic foot ulcer: Qualifiers: Diabetic foot ulcer location: toe Diabetes mellitus type: type 2 Laterality: left Non-pressure ulcer stage: unspecified non-pressure ulcer stage Qualified Code(s): E11.621 - Type 2 diabetes mellitus with foot ulcer; L97.529 - Non-pressure chronic ulcer of other part of left foot with unspecified severity Code(s): E11.621 - Type 2 diabetes mellitus with foot ulcer; L97.509 - Non-pressure chronic ulcer of other part of unspecified foot with unspecified severity Status: Acute Assessment and Plan: - CT foot: 1. Puncture wound plantar to the head of the first metatarsal with small region of underlying phlegmonous change without organized abscess, retained foreign body, soft tissue gas or associated osteomyelitis. - wound documented via photo at beginning of admission, plan to update. on vancomycin IV, cefepime IV, and Flagyl p.o - lactic not completed during initial evaluation, add procalcitonin and CRP - generally surgery consulted for possible surgical debridement versus amputation, awaiting formal recs - analgesics and antipyretics p.r.n. - wound nurse consulted S/P Complex incision and drainage of diabetic left foot abscess 04/18 patient is afebrile over the night, continue current antibiotics, change Flagyl to IV, patient cannot tolerate oral Flagyl MRI today- 04/20 04/21- wound culture- group B strep flagyl stopped ceftriaxone IV continue 04/22- surgery notes reviewed: Will stop the Flagyl to see if that is causing her nausea. There been no anaerobes cultured and her blood or from the wound culture. The foot looks better. The MRI shows no evidence of osteomyelitis. Will plan on extended course of oral antibiotics when she leaves the hospital. When she is eating better than plan on discharge home with oral antibiotics for about the next 4 weeks. levaquin IV- continue untill able to take PO- then anticipate discharge (2) Cellulitis of left foot: Code(s): L03.116 - Cellulitis of left lower limb Status: Acute Assessment and Plan: see above (3) Bacteremia: Code(s): R78.81 - Bacteremia Status: Acute Assessment and Plan: lood culture in [place] grows Gram-positive cocci Repeated blood culture- negative will stop vanc surgery following: Continue IV antibiotics and daily gauze dressing changes. We will order an MRI of the foot today to further evaluate for possible osteomyelitis. If she has evidence of osteomyelitis on MRI, then she will need a PICC line and 6 weeks of IV antibiotics. MRI- IMPRESSION: 1. No evidence of osteomyelitis. (4) Uncontrolled diabetes mellitus: Status: Acute Assessment and Plan: - initial glucose 271 and A1C 13% - started on Lantus 13 units HS - hypoglycemia protocol - POC blood glucose ACHS - correct regimen ordered - moderate dose TIDWM - visual educator and dietitian consulted 04/18 glucose is not controlled and target Increase Lantus 20 units q.h.s., start aspart 4 u before each meal, continue sliding scale 04/20- better- 120-160's insulin was not given due to pt not eating well at all- she was able to take few bites and has protein supplement ordered and available- encourage to drink with ice-few sips at a time (5) Nausea & vomiting: Code(s): R11.2 - Nausea with vomiting, unspecified Status: Acute Assessment and Plan: stopped flagyl 04/21- could be reason for her nausea. Given 1 dose of Zofran with minimal relief. reglan prn benadryl prn scopolamine patch, compazine, phenergan- all with very little or no relief -will order H pylori and add GI consult Plan Diet: diabetic GI Prophylaxis: not currently indicated DVT Prophylaxis: Lovenox Lines: peripheral Time Spent With Patient Time with patient: Greater than 35 minutes Subjective Date/time seen: 04/23/24 0800 Interval history: pt is seen and examined 04/22- nausea somehwat better bit still a problem. she was able to take few bites of food but cannot take any po meds Review of Systems Review of Systems: still ongoing nausea Exam Const: General: comfortable Cardio: Rate: regular rate Rhythm: regular rhythm GI: GI Palp: Yes Soft to palpation Auscultation: normal bowel sounds Objective Data Vital Signs Vital Signs: Vital Signs - 24 hr 04/23/24 15:40 04/23/24 22:18 04/23/24 20:00 Temperature 98.5 F 98.0 F Pulse Rate 73 82 Respiratory Rate 18 14 Blood Pressure 172/66 H 178/73 H Pulse Oximetry 96 95 99 Oxygen Delivery Room Air 04/24/24 07:25 Temperature 97.6 F Pulse Rate 75 Respiratory Rate 16 Blood Pressure 185/79 H Pulse Oximetry 96 Oxygen Delivery Intake/Output Intake/Output: Intake & Output 04/21/24 04/22/24 04/23/24 04/24/24 23:59 23:59 23:59 23:59 Intake Total 3330 3070 3170 1400 Balance 3330 3070 3170 1400 Meds/Results Medications: Active Medications Generic Name Dose Route Start Last Admin Trade Name Freq PRN Reason Stop Dose Admin Acetaminophen 1,000 mg 04/18/24 19:01 Acetaminophen 500 Mg Tablet PO Q6H PRN Mild Pain (1-3) or Fever Hydrocodone Bitart/Acetaminophen 1 tab 04/18/24 19:01 Hydrocodone/Acetaminophen (*Crx) 5-325 Mg Tablet PO Q4H PRN Pain Rated 4-6 Dextrose 12.5 gm 04/17/24 22:00 Dextrose 50% 25 Gm/50 Ml Syringe IV PUSH PRN PRN Hypoglycemia Protocol Diphenhydramine HCl 25 mg 04/17/24 21:58 04/24/24 05:27 Diphenhydramine Hcl Inj 50 Mg/Ml Vial IV PUSH 25 mg Q6H PRN Administration Nausea And Vomiting Enoxaparin Sodium 40 mg 04/18/24 09:00 04/23/24 08:10 Enoxaparin 40 Mg/0.4 Ml Syringe SUB-Q 40 mg DAILY JOSIE Administration Glucagon 1 mg 04/17/24 22:00 Glucagon For Inj 1 Mg Vial IM PRN PRN Hypoglycemia Protocol Glucose 15 gm 04/17/24 22:00 Glucose Oral Gel 15 Gm Of Glucse In 37.5 Gm Tube PO PRN PRN Hypoglycemia Protocol Hydralazine HCl 10 mg 04/22/24 08:44 04/22/24 15:21 Hydralazine Hcl 20 Mg/Ml Vial IV PUSH 10 mg Q8H PRN Administration Blood Pressure - High Dextrose 1,000 mls @ 100 mls/hr 04/17/24 22:00 Dextrose 5% 1,000 Ml IVPB PRN PRN Hypoglycemia Protocol Sodium Chloride 1,000 mls @ 100 mls/hr 04/18/24 11:10 04/24/24 06:30 Normal Saline Iv IV CONT 100 mls/hr .Q10H JOSIE Administration Levofloxacin/Dextrose 750 mg in 150 mls @ 100 mls/hr 04/22/24 16:00 04/23/24 17:01 Levaquin 750 Mg/D5w 150 Ml IVPB Infused Q24H [facility] Infusion Potassium Chloride 40 meq/ 520 mls @ 130 mls/hr 04/24/24 07:32 Sodium Chloride IVPB 04/24/24 11:31 ONCE ONE Insulin Aspart 3 - 6 units 04/18/24 08:00 04/23/24 17:18 Insulin Aspart (*Bkc) 100 Units/Ml SUB-Q Not Given TIDWM [facility] Protocol Insulin Aspart 4 units 04/19/24 12:00 04/23/24 17:18 Insulin Aspart (*Bkc) 100 Units/Ml 0.05 units/kg (4 units) Not Given SUB-Q TIDWM [facility] Insulin Glargine 20 units 04/19/24 21:00 04/23/24 21:56 Insulin Glargine (*Bkc) 100 Units/Ml SUB-Q Not Given [facility] Morphine Sulfate 2 mg 04/17/24 21:58 Morphine Sulfate (*Crx) 2 Mg/Ml Inj IV PUSH Q4H PRN Pain Rated 7-10 Ondansetron HCl 4 mg 04/18/24 19:01 04/24/24 01:04 Ondansetron Inj 4 Mg/2 Ml Vial IV PUSH 4 mg Q6H PRN Administration Nausea And Vomiting Oxycodone HCl 5 mg 04/18/24 19:01 Oxycodone Hcl (*Crx) 5 Mg Tab Ir PO Q4H PRN Pain Rated 7-10 Pantoprazole Sodium 40 mg 04/23/24 17:00 04/23/24 17:17 Pantoprazole Sodium Iv 40 Mg Vial IV PUSH 40 mg BID JOSIE Administration Promethazine HCl 12.5 mg 04/22/24 16:00 04/24/24 06:36 Promethazine Hcl 25 Mg/Ml Ampul IV PUSH 12.5 mg Q4H PRN Administration Nausea And Vomiting Saccharomyces Boulardii 250 mg 04/22/24 09:00 04/23/24 17:18 Saccharomyces Boulardii 250 Mg Capsule PO Not Given TID JOSIE Scopolamine 1 patch 04/22/24 14:20 04/22/24 14:44 Scopolamine 1 Mg Patch TRANSDERM 1 patch Q72HR JOSIE Administration Sucralfate 1,000 mg 04/23/24 16:30 11/10/24 06:32 Sucralfate Susp 100 Mg/Ml 10 Ml Udc PO 1,000 mg ACHS JOSIE Administration Radiology Results: ITS Impressions Ankle Brachial Index 04/20/24 15:21 IMPRESSION: Moderate stenosis is suggestive bilaterally. Foot MRI 04/20/24 16:58 IMPRESSION: 1. No evidence of osteomyelitis. Labs Labs: Laboratory Results - last 24 hr 04/23/24 04/23/24 04/23/24 09:07 12:09 17:02 WBC RBC Hgb Hct MCV MCH MCHC RDW Plt Count MPV Sodium Potassium Chloride Carbon Dioxide Anion Gap BUN Creatinine Estim Creat Clear Calc Estimated GFR Glucose POC Capillary Glucose 137 H 134 H 146 H Calcium 04/23/24 04/24/24 21:46 05:22 WBC 8.6 RBC 4.62 Hgb 12.9 Hct 37.3 MCV 80.7 MCH 27.9 MCHC 34.6 RDW 13.0 Plt Count 228 MPV 9.0 Sodium 134 L Potassium 2.7 L* Chloride 102 Carbon Dioxide 19 L Anion Gap 13 H BUN 6 L Creatinine 0.50 L Estim Creat Clear Calc 109 Estimated GFR > 60 Glucose 173 H POC Capillary Glucose 147 H Calcium 8.0 L Quality VTE Prophylaxis VTE prophylaxis: pharmacologic ordered
[2024-04-24 08:19] LABS: Glucose Point of Care 194 mg/dl (65-105)
[2024-04-24] MEDS: PANTOPRAZOLE SODIUM IV 40 MG VIAL IV PUSH ×2 (08:31→17:13)
[2024-04-24] MEDS: ENOXAPARIN 40 MG/0.4 ML SYRINGE SUB-Q (08:31)
[2024-04-24] MEDS: POTASSIUM CHLORIDE INJ 40 MEQ in SODIUM CHLORIDE 0.9% IV 500 ML 130 MEQ IVPB (08:32)
[2024-04-24] MEDS: SACCHAROMYCES BOULARDII 250 MG CAPSULE PO ×2 (08:32→17:13)
[2024-04-24] MEDS: POTASSIUM CHLORIDE 20 MEQ PACKET (FOR LIQUID) 40 MEQ PO (08:32)
[2024-04-24] MEDS: INSULIN ASPART (*BKC) 100 UNITS/ML SUB-Q ×2 (08:32→12:13)
--- NOTE | 2024-04-24 10:09 | P.PNGS_ITS ---
Progress Note: A&P Assessment and Plan (1) Diabetic infection of left foot: Code(s): E11.628 - Type 2 diabetes mellitus with other skin complications; L08.9 - Local infection of the skin and subcutaneous tissue, unspecified Status: Acute Assessment and Plan: doing well s/p I and D, cont local wound care and abx, encourage po intake Subjective Subjective Date/Time Seen: 04/24/24 10:09 Interval history: no acute issues, nausea is somewhat improved but still having difficulty c adequate po intake Review of Systems Review of Systems: All systems reviewed & are unremarkable except as noted in HPI and below Exam Const: General: cooperative, comfortable and no acute distress Resp: Auscultation: clear to auscultation bilaterally Cardio: Rate: regular rate Rhythm: regular rhythm GI: Inspection: normal to inspection Extrem: Other: L foot - dressing C/D/I Objective Data Vital Signs Vital Signs: Vital Signs - 24 hr 04/23/24 15:40 04/23/24 22:18 04/23/24 20:00 Temperature 36.9 C 36.7 C Pulse Rate 73 82 Respiratory Rate 18 14 Blood Pressure 172/66 H 178/73 H Pulse Oximetry 96 95 99 Oxygen Delivery Room Air 04/24/24 07:25 Temperature 36.4 C Pulse Rate 75 Respiratory Rate 16 Blood Pressure 185/79 H Pulse Oximetry 96 Oxygen Delivery Intake/Output Intake/Output: Intake & Output 04/21/24 04/22/24 04/23/24 04/24/24 23:59 23:59 23:59 23:59 Intake Total 3330 3070 3170 1400 Balance 3330 3070 3170 1400 Meds/Results Medications: Active Medications Generic Name Dose Route Start Last Admin Trade Name Freq PRN Reason Stop Dose Admin Acetaminophen 1,000 mg 04/18/24 19:01 Acetaminophen 500 Mg Tablet PO Q6H PRN Mild Pain (1-3) or Fever Hydrocodone Bitart/Acetaminophen 1 tab 04/18/24 19:01 Hydrocodone/Acetaminophen (*Crx) 5-325 Mg Tablet PO Q4H PRN Pain Rated 4-6 Dextrose 12.5 gm 04/17/24 22:00 Dextrose 50% 25 Gm/50 Ml Syringe IV PUSH PRN PRN Hypoglycemia Protocol Diphenhydramine HCl 25 mg 04/17/24 21:58 04/24/24 05:27 Diphenhydramine Hcl Inj 50 Mg/Ml Vial IV PUSH 25 mg Q6H PRN Administration Nausea And Vomiting Enoxaparin Sodium 40 mg 04/18/24 09:00 04/24/24 08:31 Enoxaparin 40 Mg/0.4 Ml Syringe SUB-Q 40 mg DAILY JOSIE Administration Glucagon 1 mg 04/17/24 22:00 Glucagon For Inj 1 Mg Vial IM PRN PRN Hypoglycemia Protocol Glucose 15 gm 04/17/24 22:00 Glucose Oral Gel 15 Gm Of Glucse In 37.5 Gm Tube PO PRN PRN Hypoglycemia Protocol Hydralazine HCl 10 mg 04/22/24 08:44 04/22/24 15:21 Hydralazine Hcl 20 Mg/Ml Vial IV PUSH 10 mg Q8H PRN Administration Blood Pressure - High Dextrose 1,000 mls @ 100 mls/hr 04/17/24 22:00 Dextrose 5% 1,000 Ml IVPB PRN PRN Hypoglycemia Protocol Sodium Chloride 1,000 mls @ 100 mls/hr 04/18/24 11:10 04/24/24 06:30 Normal Saline Iv IV CONT 100 mls/hr .Q10H JOSIE Administration Levofloxacin/Dextrose 750 mg in 150 mls @ 100 mls/hr 04/22/24 16:00 04/23/24 17:01 Levaquin 750 Mg/D5w 150 Ml IVPB Infused Q24H JOSIE Infusion Potassium Chloride 40 meq/ 520 mls @ 130 mls/hr 04/24/24 07:32 04/24/24 08:32 Sodium Chloride IVPB 04/24/24 11:31 130 mls/hr ONCE ONE Administration Insulin Aspart 3 - 6 units 04/18/24 08:00 04/24/24 08:24 Insulin Aspart (*Bkc) 100 Units/Ml SUB-Q Not Given TIDWM [facility] Protocol Insulin Aspart 4 units 04/19/24 12:00 04/24/24 08:32 Insulin Aspart (*Bkc) 100 Units/Ml 0.05 units/kg (4 units) 4 units SUB-Q Administration TIDWM [facility] Insulin Glargine 20 units 04/19/24 21:00 04/23/24 21:56 Insulin Glargine (*Bkc) 100 Units/Ml SUB-Q Not Given HS [facility] Morphine Sulfate 2 mg 04/17/24 21:58 Morphine Sulfate (*Crx) 2 Mg/Ml Inj IV PUSH Q4H PRN Pain Rated 7-10 Ondansetron HCl 4 mg 04/18/24 19:01 04/24/24 01:04 Ondansetron Inj 4 Mg/2 Ml Vial IV PUSH 4 mg Q6H PRN Administration Nausea And Vomiting Oxycodone HCl 5 mg 04/18/24 19:01 Oxycodone Hcl (*Crx) 5 Mg Tab Ir PO Q4H PRN Pain Rated 7-10 Pantoprazole Sodium 40 mg 04/23/24 17:00 04/24/24 08:31 Pantoprazole Sodium Iv 40 Mg Vial IV PUSH 40 mg BID JOSIE Administration Promethazine HCl 12.5 mg 04/22/24 16:00 04/24/24 06:36 Promethazine Hcl 25 Mg/Ml Ampul IV PUSH 12.5 mg Q4H PRN Administration Nausea And Vomiting Saccharomyces Boulardii 250 mg 04/22/24 09:00 04/24/24 08:32 Saccharomyces Boulardii 250 Mg Capsule PO 250 mg TID JOSIE Administration Scopolamine 1 patch 04/22/24 14:20 04/22/24 14:44 Scopolamine 1 Mg Patch TRANSDERM 1 patch Q72HR JOSIE Administration Sucralfate 1,000 mg 04/23/24 16:30 04/24/24 06:32 Sucralfate Susp 100 Mg/Ml 10 Ml Udc PO 1,000 mg ACHS JOSIE Administration Radiology Results: ITS Impressions Ankle Brachial Index 04/20/24 15:21 IMPRESSION: Moderate stenosis is suggestive bilaterally. Foot MRI 04/20/24 16:58 IMPRESSION: 1. No evidence of osteomyelitis. Labs Labs: Laboratory Results - last 24 hr 04/23/24 04/23/24 04/23/24 12:09 17:02 21:46 WBC RBC Hgb Hct MCV MCH MCHC RDW Plt Count MPV Sodium Potassium Chloride Carbon Dioxide Anion Gap BUN Creatinine Estim Creat Clear Calc Estimated GFR Glucose POC Capillary Glucose 134 H 146 H 147 H Calcium 04/24/24 04/24/24 05:22 08:16 WBC 8.6 RBC 4.62 Hgb 12.9 Hct 37.3 MCV 80.7 MCH 27.9 MCHC 34.6 RDW 13.0 Plt Count 228 MPV 9.0 Sodium 134 L Potassium 2.7 L* Chloride 102 Carbon Dioxide 19 L Anion Gap 13 H BUN 6 L Creatinine 0.50 L Estim Creat Clear Calc 109 Estimated GFR > 60 Glucose 173 H POC Capillary Glucose 194 H Calcium 8.0 L
[2024-04-24 11:50] LABS: Glucose Point of Care 159 mg/dl (65-105)
--- NOTE | 2024-04-24 12:38 | P.CONGI_ITS ---
Assessment and Plan Assessment and plan (1) Nausea & vomiting: Code(s): R11.2 - Nausea with vomiting, unspecified Status: Acute Assessment and Plan: better with medical therapy probably from uncontrolled DM (may have some component of dysmotility), active infection, use of iv abx, etc continue antiemetics, advance diet as tolerated plan is EGD as outpatient, we can do it sooner if persistent vomiting but she says that is improving (2) Uncontrolled diabetes mellitus: Status: Acute Assessment and Plan: started on meds, new diagnosis (3) Foot abscess, left: Code(s): L02.612 - Cutaneous abscess of left foot Status: Acute Assessment and Plan: s/p surgery on iv abx (4) Diabetic foot ulcer: Qualifiers: Diabetic foot ulcer location: toe Diabetes mellitus type: type 2 Laterality: left Non-pressure ulcer stage: unspecified non-pressure ulcer stage Qualified Code(s): E11.621 - Type 2 diabetes mellitus with foot ulcer; L97.529 - Non-pressure chronic ulcer of other part of left foot with unspecified severity Code(s): E11.621 - Type 2 diabetes mellitus with foot ulcer; L97.509 - Non-pressure chronic ulcer of other part of unspecified foot with unspecified severity Status: Acute (5) Colon cancer screening: Code(s): Z12.11 - Encounter for screening for malignant neoplasm of colon Status: Acute Assessment and Plan: never had colonoscopy, will set up one with EGD as outpatient GI Consult Note Consult date/time: 04/24/24 12:38 Reason for consult: nausea, vomiting HPI: Ida Grande is a 63 year old female who was admitted 7 days ago after noted cellulitis/abscess in left foot, admitted for iv antibiotics but also drainage by surgery (Foot CT on admission showed puncture wound plantar to the head of the 1st metatarsal with small region of underlying phlegmonous change change without organized abscess, retained foreign body, soft tissue gas, or associated osteomyelitis). Also was diagnosed with new onset of DM, A1C 12. She has been dealing with nausea and vomiting, this slowly has improved and feeling better but never had EGD or GI evaluation. At baseline she has motion sickness and it is not uncommon for her to throw up after being in the car for too long. Denies gerd symptoms. Also she has hypokalemia because poor oral intake. Never had colonoscopy. Better with antiemetics and medical therapy. Review of Systems Constitutional: Constitutional: Denies fatigue Eyes: Eyes: Denies blurry vision ENT: Reports Normal hearing present Cardiovascular: Cardiovascular: Denies chest pain Respiratory: Respiratory: Denies cough Gastrointestinal: Gastrointestinal: Reports nausea and Reports vomiting Genitourinary: Genitourinary: Denies hematuria Musculoskeletal: Comments: left foot pain Integumentary/Breasts: Comments: cellulitis left foot Neurologic: Reports Abnormal speech present Psychiatric: Psychiatric: Reports behavioral changes [facility] Past Medical History Medical History (Updated 04/24/24 @ 12:43 by David Oliveira MD) Colon cancer screening Diabetes History of chicken pox History of shingles Migraines Surgical History Surgical History H/O oral surgery Social History Social History Smoking status: Never smoker Tobacco type: cigarettes Second hand tobacco smoke exposure: No Alcohol intake: never Alcohol use details: Allergy to beer Substance use: never Substance use type: does not use Do You Feel Safe in your Home?: Yes Lack of Transportation: No Lack of Food: Never True Current Housing: I Have Housing Concerned About Future Housing: No Difficulty Paying Gas/Electric Bills: No Difficulty Paying for Meds: No Currently Unemployed: No Education: High School Diploma/GED Difficulty w/ Childcare or Family Care: No Spiritual care concerns: No Meds Home Medications and Allergies Home Medications Medication Instructions Recorded Confirmed Type No Home Medications 04/17/24 04/17/24 History Allergies Allergy/AdvReac Type Severity Reaction Status Date / Time amoxicillin Allergy Intermediate unknown Verified 04/21/24 12:57 erythromycin base Allergy Intermediate unknown Verified 04/14/24 10:04 Sulfa (Sulfonamide Allergy Intermediate Verified 04/19/24 14:18 Antibiotics) Vital Signs Vital Signs - 24 hr 04/23/24 15:40 04/23/24 22:18 04/23/24 20:00 Temperature 98.5 F 98.0 F Pulse Rate 73 82 Respiratory Rate 18 14 Blood Pressure 172/66 H 178/73 H Pulse Oximetry 96 95 99 Oxygen Delivery Room Air 04/24/24 07:25 04/24/24 08:29 Temperature 97.6 F Pulse Rate 75 Respiratory Rate 16 Blood Pressure 185/79 H Pulse Oximetry 96 Oxygen Delivery Room Air Exam Const: General: cooperative, comfortable and no acute distress HENMT: Face/Nose/Sinus: Normal nares present Eyes: Sclera: sclerae normal Neck: Neck: supple Resp: Auscultation: clear to auscultation bilaterally Cardio: Rate: regular rate Rhythm: regular rhythm GI: Inspection: normal to inspection GI Palp: Yes Soft to palpation and No Tenderness to palpation present (GI) Auscultation: normal bowel sounds Skin: Other: cellulitis left foot Neuro: Speech: normal speech Motor exam (neuro): 5/5 motor strength present throughout Extrem: Other: L foot - dressing C/D/I Psych: Mental Status: mental status grossly normal Results Labs 04/24/24 05:22 04/24/24 05:22 Labs: Short CBC 04/24/24 Range/Units 05:22 WBC 8.6 (4.5-10.0) K/mm3 Hgb 12.9 (12.0-15.0) g/dL Hct 37.3 (37.0-47.0) % Plt Count 228 (150-375) k/mm3 [facility] 04/24/24 05:22 Sodium 134 L Potassium 2.7 L* Chloride 102 Carbon Dioxide 19 L BUN 6 L Creatinine 0.50 L Glucose 173 H Calcium 8.0 L
[2024-04-24 13:53] VITALS: BP 180/73; PULSE 70; RESP 18; TEMP 36.8; O2SAT 100
[2024-04-24 15:42] VITALS: BP 175/68; PULSE 72; O2SAT 99
[2024-04-24] MEDS: lisinopriL 20 MG TABLET PO (15:59)
[2024-04-24] MEDS: levoFLOXacin 750 MG/D5W 150 ML 750 MG/150 ML BAG 100 MG IVPB (15:59)
[2024-04-24 17:03] LABS: Glucose Point of Care 131 mg/dl (65-105)
[2024-04-24 20:00] VITALS: PULSE 89; RESP 18; O2SAT 99
[2024-04-24 20:50] LABS: Glucose Point of Care 144 mg/dl (65-105)
[2024-04-24 21:39] VITALS: BP 178/69; PULSE 89; RESP 18; TEMP 37.1; O2SAT 99
[2024-04-25] MEDS: SODIUM CHLORIDE 0.9% IV 1,000 ML 100 ML IV CONT (05:30)
[2024-04-25] MEDS: SUCRALFATE SUSP 100 MG/ML 10 ML UDC 1000 MG PO ×2 (05:37→11:29)
[2024-04-25 05:41] VITALS: BP 160/66; PULSE 69; RESP 18; TEMP 36.7; O2SAT 98
[2024-04-25 05:42] LABS: Hematocrit 33.6 % (37.0-47.0); Hemoglobin 11.3 g/dL (12.0-15.0); Mean Corpuscular HGB Conc 33.6 g/dl (32-36); Mean Corpuscular Hemoglobin 27.6 pg (26-34); Mean Platelet Volume 9.1 fl (7.4-10.4); Platelet Count Result 191 k/mm3 (150-375); Red Cell Distribution Width 13.2 % (11.5-14.5); White Blood Count 7.8 K/mm3 (4.5-10.0)
[2024-04-25 06:01] LABS: Anion Gap 9 mmol/L (4-12); Blood Urea Nitrogen 5 mg/dL (7-17); Calcium 7.8 mg/dL (8.4-10.2); Carbon Dioxide 24 mmol/L (22-30); Chloride 101 mmol/L (98-107); Estimated CRCL calculation 109 ml/min; Estimated Glomerular Filt Rate > 60; Glucose 151 mg/dL (65-110); Sodium 134 mmol/L (137-145)
[2024-04-25 07:40] LABS: Glucose Point of Care 167 mg/dl (65-105)
[2024-04-25] MEDS: SACCHAROMYCES BOULARDII 250 MG CAPSULE PO ×2 (08:29→12:07)
[2024-04-25] MEDS: ENOXAPARIN 40 MG/0.4 ML SYRINGE SUB-Q (08:29)
[2024-04-25] MEDS: lisinopriL 20 MG TABLET PO (08:29)
[2024-04-25] MEDS: SCOPOLAMINE 1 MG PATCH 1 PATCH TRANSDERM (08:30)
[2024-04-25] MEDS: PANTOPRAZOLE SODIUM IV 40 MG VIAL IV PUSH (08:30)
[2024-04-25] MEDS: INSULIN ASPART (*BKC) 100 UNITS/ML SUB-Q ×2 (08:31→12:07)
--- NOTE | 2024-04-25 11:14 | PCNFU ---
Nutrition Follow-Up Complete: Inadequate oral intake related to nausea and vomiting as evidenced by intakes 0% for several days Goal: Pt current nutrition is Diabetic consistent carb diet. Intakes 0% for 48 hours, then 100% breakfast today. Glucerna BID for additional 220 kcal and 10 g protein each. Nutrition recommendation: No new nutrition recommendations. Nutrition education was provided 04/18/24 Last recorded weight is 84.1 kg. Bowel Motility: +1 BM 04/21/24 Labs Reviewed: Hgb 11.3, Hct 33.6, Na 134, K+ 3.0, BUN 5, Cre 0.5, Glu 151 Meds Noted: Insulin, Zofran, phenergan, scopolamine, carafate, florastor Skin: Had I&D to foot ulcer Additional Notes: Nausea and vomiting have improved and pt able to eat breakfast. Monitoring every 7 days.
--- NOTE | 2024-04-25 11:17 | P.PNGS_ITS ---
Progress Note: A&P Assessment and Plan (1) Diabetic infection of left foot: Code(s): E11.628 - Type 2 diabetes mellitus with other skin complications; L08.9 - Local infection of the skin and subcutaneous tissue, unspecified Status: Acute Assessment and Plan: * Patient is one week postop following incision and drainage of left forefoot abscess which developed from a plantar ulcer and diabetic foot wound. Her redness and swelling has nearly resolved. Her nausea continues to improve and she is now able to tolerate oral intake. Okay to transition to oral antibiotics and discharge from a surgical standpoint. Superior drains were removed today. Will set her up for follow-up with Dr. Dominique in 1 week in our office. Plan I have discussed the patient's case and plan of care with Dr. Dominique. Subjective Subjective Date/Time Seen: 04/25/24 11:17 Post Op day: 7 Patient reports: no new complaints and afebrile Interval history: The patient's nausea has improved over the weekend. She is now able to tolerate a diet. Her son brought in her motion sickness bracelet that she uses when she travels and feels like this has helped. No nausea or vomiting this morning. No issues with her foot over the weekend. She reports the swelling and redness continues to improve. Her [id number] plans to change the dressings and has set up home health to help with dressing changes and education initially. Exam Const: General: comfortable and no acute distress Skin: Other: Left foot dressing removed. There are [address] with no purulent drainage. Swelling nearly resolved. Erythema continues to improve with only very mild erythema of the great toe and surrounding the 1st MTP joint. Crystal drains removed. Applied new gauze dressing and covered with Yanick wraps. Objective Data Vital Signs Vital Signs: Vital Signs - 24 hr 04/24/24 13:53 04/24/24 15:42 04/24/24 21:39 Temperature 98.2 F 98.7 F Pulse Rate 70 72 89 Respiratory Rate 18 18 Blood Pressure 180/73 H 175/68 H 178/69 H Pulse Oximetry 100 99 99 Oxygen Delivery 04/24/24 20:00 04/25/24 05:41 04/25/24 08:00 Temperature 98.1 F Pulse Rate 89 69 Respiratory Rate 18 18 Blood Pressure 160/66 H Pulse Oximetry 99 98 Oxygen Delivery Room Air Room Air Intake/Output Intake/Output: Intake & Output 04/22/24 04/23/24 04/24/24 04/25/24 23:59 23:59 23:59 23:59 Intake Total 3070 3170 3970 1245 Balance 3070 3170 3970 1245 Meds/Results Medications: Active Medications Generic Name Dose Route Start Last Admin Trade Name Freq PRN Reason Stop Dose Admin Acetaminophen 1,000 mg 04/18/24 19:01 Acetaminophen 500 Mg Tablet PO Q6H PRN Mild Pain (1-3) or Fever Hydrocodone Bitart/Acetaminophen 1 tab 04/18/24 19:01 Hydrocodone/Acetaminophen (*Crx) 5-325 Mg Tablet PO Q4H PRN Pain Rated 4-6 Dextrose 12.5 gm 04/17/24 22:00 Dextrose 50% 25 Gm/50 Ml Syringe IV PUSH PRN PRN Hypoglycemia Protocol Diphenhydramine HCl 25 mg 04/17/24 21:58 04/24/24 05:27 Diphenhydramine Hcl Inj 50 Mg/Ml Vial IV PUSH 25 mg Q6H PRN Administration Nausea And Vomiting Enoxaparin Sodium 40 mg 04/18/24 09:00 04/25/24 08:29 Enoxaparin 40 Mg/0.4 Ml Syringe SUB-Q 40 mg DAILY JOSIE Administration Glucagon 1 mg 04/17/24 22:00 Glucagon For Inj 1 Mg Vial IM PRN PRN Hypoglycemia Protocol Glucose 15 gm 04/17/24 22:00 Glucose Oral Gel 15 Gm Of Glucse In 37.5 Gm Tube PO PRN PRN Hypoglycemia Protocol Hydralazine HCl 10 mg 04/22/24 08:44 04/22/24 15:21 Hydralazine Hcl 20 Mg/Ml Vial IV PUSH 10 mg Q8H PRN Administration Blood Pressure - High Dextrose 1,000 mls @ 100 mls/hr 04/17/24 22:00 Dextrose 5% 1,000 Ml IVPB PRN PRN Hypoglycemia Protocol Sodium Chloride 1,000 mls @ 100 mls/hr 04/18/24 11:10 04/25/24 05:30 Normal Saline Iv IV CONT 100 mls/hr .Q10H JOSIE Administration Levofloxacin/Dextrose 750 mg in 150 mls @ 100 mls/hr 04/22/24 16:00 04/24/24 17:29 Levaquin 750 Mg/D5w 150 Ml IVPB Infused Q24H [facility] Infusion Insulin Aspart 3 - 6 units 04/18/24 08:00 04/25/24 07:48 Insulin Aspart (*Bkc) 100 Units/Ml SUB-Q Not Given TIDWM [facility] Protocol Insulin Aspart 4 units 04/19/24 12:00 04/25/24 08:31 Insulin Aspart (*Bkc) 100 Units/Ml 0.05 units/kg (4 units) 4 units SUB-Q Administration TIDWM [facility] Insulin Glargine 20 units 04/19/24 21:00 04/24/24 21:22 Insulin Glargine (*Bkc) 100 Units/Ml SUB-Q Not Given [facility] Lisinopril 20 mg 04/24/24 15:45 04/25/24 08:29 Lisinopril 20 Mg Tablet PO 20 mg QAM [facility] Administration Morphine Sulfate 2 mg 04/17/24 21:58 Morphine Sulfate (*Crx) 2 Mg/Ml Inj IV PUSH Q4H PRN Pain Rated 7-10 Ondansetron HCl 4 mg 04/18/24 19:01 04/24/24 01:04 Ondansetron Inj 4 Mg/2 Ml Vial IV PUSH 4 mg Q6H PRN Administration Nausea And Vomiting Oxycodone HCl 5 mg 04/18/24 19:01 Oxycodone Hcl (*Crx) 5 Mg Tab Ir PO Q4H PRN Pain Rated 7-10 Pantoprazole Sodium 40 mg 04/23/24 17:00 04/25/24 08:30 Pantoprazole Sodium Iv 40 Mg Vial IV PUSH 40 mg BID [facility] Administration Promethazine HCl 12.5 mg 04/22/24 16:00 04/24/24 06:36 Promethazine Hcl 25 Mg/Ml Ampul IV PUSH 12.5 mg Q4H PRN Administration Nausea And Vomiting Saccharomyces Boulardii 250 mg 04/22/24 09:00 04/25/24 08:29 Saccharomyces Boulardii 250 Mg Capsule PO 250 mg TID [facility] Administration Scopolamine 1 patch 04/22/24 14:20 04/25/24 08:30 Scopolamine 1 Mg Patch TRANSDERM 1 patch Q72HR [facility] Administration Sucralfate 1,000 mg 04/23/24 16:30 04/25/24 05:37 Sucralfate Susp 100 Mg/Ml 10 Ml Udc PO 1,000 mg ACHS JOSIE Administration Radiology Results: ITS Impressions Ankle Brachial Index 04/20/24 15:21 IMPRESSION: Moderate stenosis is suggestive bilaterally. Foot MRI 04/20/24 16:58 IMPRESSION: 1. No evidence of osteomyelitis. Labs Labs: Laboratory Results - last 24 hr 04/24/24 04/24/24 04/24/24 11:47 16:58 20:21 WBC RBC Hgb Hct MCV MCH MCHC RDW Plt Count MPV Sodium Potassium Chloride Carbon Dioxide Anion Gap BUN Creatinine Estim Creat Clear Calc Estimated GFR Glucose POC Capillary Glucose 159 H 131 H 144 H Calcium 04/25/24 04/25/24 05:17 07:37 WBC 7.8 RBC 4.10 L Hgb 11.3 L Hct 33.6 L MCV 82.0 MCH 27.6 MCHC 33.6 RDW 13.2 Plt Count 191 MPV 9.1 Sodium 134 L Potassium 3.0 L Chloride 101 Carbon Dioxide 24 Anion Gap 9 BUN 5 L Creatinine 0.50 L Estim Creat Clear Calc 109 Estimated GFR > 60 Glucose 151 H POC Capillary Glucose 167 H Calcium 7.8 L
[2024-04-25 11:27] LABS: Glucose Point of Care 166 mg/dl (65-105)
--- NOTE | 2024-04-25 12:23 | P.DS_ITS ---
DS: Admitting Diagnosis Discharge Date 04/25 Admitting Diagnosis foot wound DS: Discharge Diagnosis Discharge Diagnosis (1) Diabetic foot ulcer: Qualifiers: Diabetic foot ulcer location: toe Diabetes mellitus type: type 2 Laterality: left Non-pressure ulcer stage: unspecified non-pressure ulcer stage Qualified Code(s): E11.621 - Type 2 diabetes mellitus with foot ulcer; L97.529 - Non-pressure chronic ulcer of other part of left foot with unspecified severity Code(s): E11.621 - Type 2 diabetes mellitus with foot ulcer; L97.509 - Non-pressure chronic ulcer of other part of unspecified foot with unspecified severity Status: Acute (2) Cellulitis of left foot: Code(s): L03.116 - Cellulitis of left lower limb Status: Acute (3) Bacteremia: Code(s): R78.81 - Bacteremia Status: Acute (4) Uncontrolled diabetes mellitus: Status: Acute (5) Nausea & vomiting: Code(s): R11.2 - Nausea with vomiting, unspecified Status: Acute DS: Summary Hospital Course Hospital Course: The patient had a puncture wound of an unknown object 1 week ago prior to admission with progressive infection of the left foot. She is a newly diagnosed diabetic on this admission. Her hga1c was 13%. She has erythema and swelling of the left foot extending about prison up the left lower leg. She has a purulent draining puncture wound to the plantar foot over the 1st metatarsal head. CT of the left foot showed no evidence of osteomyelitis. I&D was done with DR Dominique on 04/18. She was on vanc, Rocephin, flagyl. Vanc was stopped, flagyl was stopped as it was thought contributing to her nausea. IV antibiotics were switched to Levaquin IV on 04/22. There are [address] to lt foot with no purulent drainage. Swelling nearly resolved. Erythema continues to improve with only very mild erythema of the great toe and surrounding the 1st MTP joint. Applied new gauze dressing per surgery and covered with Yanick wraps. She had been battling nausea- we were unable to switch her to PO levaquin antibiotics- duration per surgery. GI was consulted on 04/23 but she was starting to improve- so no intervention was done. GI recommended to do outpt EGD for further evaluation. Diabetic education was completed. She was on lantus 20 units at hs and sliding scale- most of the time sliding scale was not administered as pt was nauseated and had poor oral intake. She was discharged with metformin 500 mg daily x 1 week, the bID, 15 units of lantus at hs- instructions on what to do if her bs high or low. she will need to have discussion with PCP about starting statin for primary prevention. She will need to establish with ophthalmology for yearly retinal diabetic eye exams. CMP repeat for hgA1C and kidney function in 3 months. BP was high while in the hospital- she was started on 20 mg of lisinopril. Need to keep BP log and check it daily for further management and titration per pcp. Goal- systolic under 140. Status at Discharge Functional status at discharge: independent ambulation Overall status at discharge: patient is progressing back to baseline Time Spent with Patient Time attestation: Total time spent providing and/or coordinating discharge services: Time spent: Greater than 30 minutes Exam Const: General: comfortable Resp: Effort & Inspection: normal respiratory effort Cardio: Rate: regular rate Rhythm: regular rhythm GI: Auscultation: normal bowel sounds DS: Data Data Completed and Pending Completed studies during hospitalization: foot MRI, foto MRI, ankle brachial index Labs on day of discharge: Labs from last 24 hours 04/25/24 04/25/24 04/25/24 11:23 07:37 05:17 WBC 7.8 RBC 4.10 L Hgb 11.3 L Hct 33.6 L MCV 82.0 MCH 27.6 MCHC 33.6 RDW 13.2 Plt Count 191 MPV 9.1 Sodium 134 L Potassium 3.0 L Chloride 101 Carbon Dioxide 24 Anion Gap 9 BUN 5 L Creatinine 0.50 L Estim Creat Clear Calc 109 Estimated GFR > 60 Glucose 151 H POC Capillary Glucose 166 H 167 H Calcium 7.8 L 04/24/24 04/24/24 20:21 16:58 WBC RBC Hgb Hct MCV MCH MCHC RDW Plt Count MPV Sodium Potassium Chloride Carbon Dioxide Anion Gap BUN Creatinine Estim Creat Clear Calc Estimated GFR Glucose POC Capillary Glucose 144 H 131 H Calcium Discharge Plan Discharge Consulting providers: Nikita Dominique; David Oliveira Discharging Clinician: Suzanne Pineda Patient Disposition: Home Health Service Activity: may shower Diet: as tolerated and diabetic Wound Care Instructions: change dressing daily Discharge Instructions: Please continue taking levaquin as instructed per your surgeon. We will start lantus 15 units at bedtime. Please check your blood sugars in am- fasting blood sugars and records them. Keep the log and bring to your PCP. The goal for your blood sugars in am is to be between 80-130. If you noticed BS at 80's or lower- please reach out to PCP right away. If you noticed that your morning sugars are consistently elevated- above 130's- reach out to PCP to adjust insulin. Ensure you eat protein rich snacks at night and your meals are well balanced with health fats, protein and carbs. Remember corn and potatoes are part of carbs and should be counted as such and not veggies. Besides lantus, we will start you on metformin. Take 500 mg daily for a week and then increase to twice a day. Side effects are abd cramping, diarrhea typically. Those usually go away after couple of days if you develop symptoms and with us starting slower with 500 mg daily- we should avoid those side effects all together. You will need to have your hgA!C recheck in 3 month as well as kidney function. Please ensure that your PCP is aware and order blood work. Typically, we recommend starting statin when anyone is diagnosed with diabetes to reduce your risks for cardiovascular event- please discuss it with PCP. You will also need to see an eye doctor for retinal diabetic eye exam and follow up with them on a yearly basis. Your blood pressure was high -so we started you on lisinopril. Take it daily and keep log of your BP. Bets time to check it is first thing in am when you are checking your blood sugars. Goal is to get systolic number (first number) under 140. * Wound care: Change dressing daily. Apply 4x4 gauze to the right foot wounds and covering the crystal drains, then cover with kerlex (wrapped) gauze. Then wrap with Yanick wrap. * Okay to transfer and walk on your left foot with walker and bearing weight only on your heel. Wear the postop shoe with ambulation. Avoid any pressure to the forefoot where the wounds are located. * Follow-up with Dr. Dominique in our office in 1 week. Our office will call with time and date of appointment. Call sooner with any questions or if you do not hear from the office in the next few days. * director occupational and complete all antibiotics. Per Care Coordination: [facility] ([phone]) has been arranged for wound care and will teach family as well they are anticipated to see you on Thursday04/27/24, but they will call regarding exact day and time. Patient Instructions: Antibiotic Form Stand Alone Forms: General Discharge Information Follow-up/Referrals: Nikita Dominique MD [Physician] - 1 Week Discharge Medications: New (DME) blood-glucose meter Kit See Rx Instructions .Route Qty: 1 0RF Rx Instructions: As directed levofloxacin 750 mg tablet 750 mg PO DAILY Qty: 30 0RF lisinopril 20 mg Tablet 20 mg PO QAM Qty: 90 0RF Basaglar Tempo Pen(U-100)Insln 100 unit/mL (3 mL) insulin pen, sensor 15 unit subcut DAILY Qty: 15 3RF metformin 500 mg tablet extended release 24 hr 500 mg PO BID Qty: 90 0RF Rx Instructions: take 500 mg daily for 1 week, the increase to twice a day. Other Ambulatory Orders: Diabetes Education Referral (Routine) Timeframe: 1 Day Location: Determined by Patient Ordered By: Destinee Valencia Date of admission: 04/19/24 09:25 Primary Care Provider: Diann Crain Admitting Provider: Sandy Delgadillo Attending physician on admission: Sandy Delgadillo Condition: Stable Quality VTE Prophylaxis VTE prophylaxis: pharmacologic ordered Hospitalist MIPS Heart Failure (Exclusion) Patient has history of Heart Transplant or Left Ventricular Assistive Device?: No IF YES, STOP HERE Heart Failure (Qualifier) Patient has current or prior documentation of LVEF less than or equal to 40%, or mod/servere depressed LVSF?: No IF NO, STOP HERE
[2024-04-25 12:45] VITALS: BMI 28.1
[2024-04-25 14:00] VITALS: BP 149/69; PULSE 70; RESP 17; TEMP 36.9; O2SAT 98
--- NOTE | 2024-04-25 14:13 | P.PNGI_ITS ---
Progress Note: A&P Assessment and Plan (1) Nausea & vomiting: Code(s): R11.2 - Nausea with vomiting, unspecified Status: Acute Assessment and Plan: this has improved we will complete egd as outpatient in few more days she is going home (2) Uncontrolled diabetes mellitus: Status: Acute Assessment and Plan: started on insulin she is going to follow-up with pcp (3) Diabetic infection of left foot: Code(s): E11.628 - Type 2 diabetes mellitus with other skin complications; L08.9 - Local infection of the skin and subcutaneous tissue, unspecified Status: Acute Assessment and Plan: on oral abx now (4) Colon cancer screening: Code(s): Z12.11 - Encounter for screening for malignant neoplasm of colon Status: Acute Assessment and Plan: will also complete a colonoscopy in few weeks Subjective Date/time seen: 04/25/24 14:13 Interval history: overall better, eating more she is going home today Review of Systems Review of Systems: All systems reviewed & are unremarkable except as noted in HPI and below Exam Const: General: cooperative, comfortable and no acute distress HENMT: Face/Nose/Sinus: Normal nares present Eyes: Sclera: sclerae normal Neck: Neck: supple Resp: Auscultation: clear to auscultation bilaterally Cardio: Rate: regular rate Rhythm: regular rhythm GI: Inspection: normal to inspection GI Palp: Yes Soft to palpation and No Tenderness to palpation present (GI) Auscultation: normal bowel sounds Skin: Other: cellulitis left foot Neuro: Speech: normal speech Motor exam (neuro): 5/5 motor strength present throughout Extrem: Other: L foot - dressing C/D/I Psych: Mental Status: mental status grossly normal Objective Data Vital Signs Vital Signs: Vital Signs - 24 hr 04/24/24 15:42 04/24/24 21:39 04/24/24 20:00 Temperature 98.7 F Pulse Rate 72 89 89 Respiratory Rate 18 18 Blood Pressure 175/68 H 178/69 H Pulse Oximetry 99 99 99 Oxygen Delivery Room Air 04/25/24 05:41 04/25/24 08:00 Temperature 98.1 F Pulse Rate 69 Respiratory Rate 18 Blood Pressure 160/66 H Pulse Oximetry 98 Oxygen Delivery Room Air Intake/Output Intake/Output: Intake & Output 04/22/24 04/23/24 04/24/24 04/25/24 23:59 23:59 23:59 23:59 Intake Total 3070 3170 3970 1485 Balance 3070 3170 3970 1485 Meds/Results Medications: Active Medications Generic Name Dose Route Start Last Admin Trade Name Freq PRN Reason Stop Dose Admin Acetaminophen 1,000 mg 04/18/24 19:01 Acetaminophen 500 Mg Tablet PO Q6H PRN Mild Pain (1-3) or Fever Hydrocodone Bitart/Acetaminophen 1 tab 04/18/24 19:01 Hydrocodone/Acetaminophen (*Crx) 5-325 Mg Tablet PO Q4H PRN Pain Rated 4-6 Dextrose 12.5 gm 04/17/24 22:00 Dextrose 50% 25 Gm/50 Ml Syringe IV PUSH PRN PRN Hypoglycemia Protocol Diphenhydramine HCl 25 mg 04/17/24 21:58 04/24/24 05:27 Diphenhydramine Hcl Inj 50 Mg/Ml Vial IV PUSH 25 mg Q6H PRN Administration Nausea And Vomiting Enoxaparin Sodium 40 mg 04/18/24 09:00 04/25/24 08:29 Enoxaparin 40 Mg/0.4 Ml Syringe SUB-Q 40 mg DAILY JOSIE Administration Glucagon 1 mg 04/17/24 22:00 Glucagon For Inj 1 Mg Vial IM PRN PRN Hypoglycemia Protocol Glucose 15 gm 04/17/24 22:00 Glucose Oral Gel 15 Gm Of Glucse In 37.5 Gm Tube PO PRN PRN Hypoglycemia Protocol Hydralazine HCl 10 mg 04/22/24 08:44 04/22/24 15:21 Hydralazine Hcl 20 Mg/Ml Vial IV PUSH 10 mg Q8H PRN Administration Blood Pressure - High Dextrose 1,000 mls @ 100 mls/hr 04/17/24 22:00 Dextrose 5% 1,000 Ml IVPB PRN PRN Hypoglycemia Protocol Sodium Chloride 1,000 mls @ 100 mls/hr 04/18/24 11:10 04/25/24 05:30 Normal Saline Iv IV CONT 100 mls/hr .Q10H JOSIE Administration Insulin Aspart 3 - 6 units 04/18/24 08:00 04/25/24 11:31 Insulin Aspart (*Bkc) 100 Units/Ml SUB-Q Not Given TIDWM JOSIE Protocol Insulin Aspart 4 units 04/19/24 12:00 04/25/24 12:07 Insulin Aspart (*Bkc) 100 Units/Ml 0.05 units/kg (4 units) 4 units SUB-Q Administration TIDWM [facility] Insulin Glargine 20 units 04/19/24 21:00 04/24/24 21:22 Insulin Glargine (*Bkc) 100 Units/Ml SUB-Q Not Given HS [facility] Levofloxacin 750 mg 04/25/24 16:00 Levofloxacin 750 Mg Tablet PO 04/28/24 16:01 DAILY@1600 [facility] Lisinopril 20 mg 04/24/24 15:45 04/25/24 08:29 Lisinopril 20 Mg Tablet PO 20 mg QAM [facility] Administration Morphine Sulfate 2 mg 04/17/24 21:58 Morphine Sulfate (*Crx) 2 Mg/Ml Inj IV PUSH Q4H PRN Pain Rated 7-10 Ondansetron HCl 4 mg 04/18/24 19:01 04/24/24 01:04 Ondansetron Inj 4 Mg/2 Ml Vial IV PUSH 4 mg Q6H PRN Administration Nausea And Vomiting Oxycodone HCl 5 mg 04/18/24 19:01 Oxycodone Hcl (*Crx) 5 Mg Tab Ir PO Q4H PRN Pain Rated 7-10 Pantoprazole Sodium 40 mg 04/23/24 17:00 04/25/24 08:30 Pantoprazole Sodium Iv 40 Mg Vial IV PUSH 40 mg BID JOSIE Administration Promethazine HCl 12.5 mg 04/22/24 16:00 04/24/24 06:36 Promethazine Hcl 25 Mg/Ml Ampul IV PUSH 12.5 mg Q4H PRN Administration Nausea And Vomiting Saccharomyces Boulardii 250 mg 04/22/24 09:00 04/25/24 12:07 Saccharomyces Boulardii 250 Mg Capsule PO 250 mg TID [facility] Administration Scopolamine 1 patch 04/22/24 14:20 04/25/24 08:30 Scopolamine 1 Mg Patch TRANSDERM 1 patch Q72HR [facility] Administration Sucralfate 1,000 mg 04/23/24 16:30 04/25/24 11:29 Sucralfate Susp 100 Mg/Ml 10 Ml Udc PO 1,000 mg ACHS JOSIE Administration Radiology Results: ITS Impressions Ankle Brachial Index 04/20/24 15:21 IMPRESSION: Moderate stenosis is suggestive bilaterally. Foot MRI 04/20/24 16:58 IMPRESSION: 1. No evidence of osteomyelitis. Labs Labs: Laboratory Results - last 24 hr 04/24/24 04/24/24 04/25/24 16:58 20:21 05:17 WBC 7.8 RBC 4.10 L Hgb 11.3 L Hct 33.6 L MCV 82.0 MCH 27.6 MCHC 33.6 RDW 13.2 Plt Count 191 MPV 9.1 Sodium 134 L Potassium 3.0 L Chloride 101 Carbon Dioxide 24 Anion Gap 9 BUN 5 L Creatinine 0.50 L Estim Creat Clear Calc 109 Estimated GFR > 60 Glucose 151 H POC Capillary Glucose 131 H 144 H Calcium 7.8 L 04/25/24 04/25/24 07:37 11:23 WBC RBC Hgb Hct MCV MCH MCHC RDW Plt Count MPV Sodium Potassium Chloride Carbon Dioxide Anion Gap BUN Creatinine Estim Creat Clear Calc Estimated GFR Glucose POC Capillary Glucose 167 H 166 H Calcium
== END 2024-04-25 15:20 | disposition home health service (06) | DRG 638 ==
PROVIDERS: Hospitalist; Internal Medicine; Nurse Practitioner Family; Student in an Organized Health Care Education/Training Program; Surgery; Admitting Provider Internal Medicine; PCP Nurse Practitioner Family; Visit Provider Nurse Practitioner
PROC: 0J9R0ZZ Drainage of Left Foot Subcutaneous Tissue and Fascia, Open Approach (ICD-10-PCS; principal; 2024-04-18 15:45)
DX: E11.621 Type 2 diabetes mellitus with foot ulcer (principal); E87.1 Hypo-osmolality and hyponatremia; L03.116 Cellulitis of left lower limb; L02.612 Cutaneous abscess of left foot; L97.529 Non-pressure chronic ulcer of other part of left foot with unspecified severity; B95.1 Streptococcus, group B, as the cause of diseases classified elsewhere; E11.65 Type 2 diabetes mellitus with hyperglycemia; R11.0 Nausea
CPT/HCPCS: 36415; 73718; 73719; 80048; 80053; 80202; 82565; 82948; 84145; 85025; 85027; 85610; 86140; 87040; 87070; 87075; 87205; 93922; 97110; 97161; 97165; 97530; 97535; A9270; G0378; G0379; J0360; J0692; J0696; J1200; J1650; J1815; J1836; J1956; J2004; J2250; J2270; J2405; J2470; J2550; J2704; J2765; J3370; J3480; J7030; J7040; J7120

== ENCOUNTER 2024-05-04 15:17 | Outpatient (CLI) | payer BC, SELFPAY ==
[2024-05-04 15:53] LABS: Basophils Absolute Auto 0.11 K/mm3 (0.00-0.10); Basophils Percent Auto 1.3 % (0.0-1.0); Eosinophils Absolute Auto 0.31 K/mm3 (0.02-0.50); Eosinophils Percent Auto 3.7 % (1.0-6.0); Hematocrit 40.9 % (35.0-49.0); Hemoglobin 14.1 g/dL (12.0-15.0); Immature Granulocyte Absolute 0.05 K/mm3 (0.00-0.00); Immature Granulocyte Percent A 0.6 % (0.0-0.0); Lymphocytes Absolute Auto 0.79 K/mm3 (1.10-4.50); Lymphocytes Percent Auto 9.5 % (18.0-42.0); Mean Corpuscular HGB Conc 34.5 g/dL (32-36); Mean Corpuscular Hemoglobin 27.4 pg (27.0-31.0); Mean Corpuscular Volume 79.4 fL (78.0-102.0); Mean Platelet Volume 9.9 fl (9.2-11.8); Monocytes Absolute Auto 0.73 K/mm3 (0.10-0.90); Monocytes Percent Auto 8.8 % (2.0-11.0); Neutrophils Absolute Auto 6.31 K/mm3 (1.70-7.20); Neutrophils Percent Auto 76.1 % (50.0-70.0); Platelet Count Result 216 K/mm3 (150-420); Red Blood Count 5.15 M/mm3 (4.20-5.40); Red Cell Distribution Width 13.9 % (11.6-14.4); White Blood Count 8.3 K/mm3 (4.8-10.8)
[2024-05-04 16:08] LABS: Alanine Aminotransferase 22 U/L (14-59); Albumin Level 3.4 g/dL (3.4-5.0); Alkaline Phosphatase 47 U/L (46-116); Anion Gap 16 mmol/L (4-12); Aspartate Amino Transferase 14 U/L (15-37); Bilirubin,Total 0.8 mg/dL (0.00-1.00); Blood Urea Nitrogen 7 mg/dL (7-18); Calcium 9.6 mg/dL (8.5-10.1); Carbon Dioxide 28 mmol/L (21-32); Chloride 94 mmol/L (98-108); Estimated Glomerular Filt Rate > 60; Glucose 102 mg/dL (70-99); Magnesium 1.1 mg/dL (1.8-2.4); Osmolality Calculated 284 mOsm/kg (285-295); Potassium 2.7 mmol/L (3.5-5.1); Sodium 138 mmol/L (136-145); Total Protein 6.4 g/dL (6.4-8.2)
== END 2024-05-04 15:18 | disposition home or self-care (01) ==
PROVIDERS: PCP Nurse Practitioner Family; Visit Provider Nurse Practitioner Family
DX: R11.2 Nausea with vomiting, unspecified (principal)
CPT/HCPCS: 36415; 80053; 83735; 85025

== ENCOUNTER 2024-05-05 17:15 | Observation (INO) | payer BC, SELFPAY ==
[2024-05-05] VITALS (8 sets, daily range): BP systolic 108–142; BP diastolic 69–77; PULSE 71–80; RESP 14–18; TEMP 36.6–36.7; O2SAT 96–100; BMI 25.8
--- NOTE | 2024-05-05 17:40 | ECG_ITS ---
Test Date: 2024-05-05 18:04:57 Measurements Intervals [place] Rate: 72 P: 101 DE: 220 QRS: -37 QRSD: 106 T: 44 QT: 411 QTc: 453 Interpretive Statements SINUS RHYTHM WITH FIRST DEGREE AV BLOCK LEFT AXIS DEVIATION CONSIDER ANTERIOR INFARCT, AGE INDETERMINATE INFERIOR INFARCT, AGE INDETERMINATE BORDERLINE T WAVE ABNORMALITY- ANTEROLAT/HIGH LAT LEADS BASELINE ARTIFACT- I, III, AVR, AVL, AVF, V2-V6 ABNORMAL ECG No previous ECG available for comparison Electronically Signed On 05-05-2024 19:21:21 [employer] OPERATOR by Shahbaz Matta D.O.
[2024-05-05] MEDS: SODIUM CHLORIDE 0.9% IV 1,000 ML 999 ML IV CONT (17:53)
[2024-05-05] MEDS: KCL 20 MEQ/SW 100 ML 100 ML 50 MEQ IVPB (17:53)
[2024-05-05] MEDS: POTASSIUM BICARBONATE 25 MEQ TABEF 50 MEQ PO (17:58)
--- NOTE | 2024-05-05 18:03 | ED.RECABL ---
HPI - Recheck/Abnormal Lab/Rx General Chief Complaint: Recheck/Abnormal Lab/Rx Stated Complaint: low K+ & Mg+2 Time Seen by Provider: 05/05/24 17:23 Source: patient and family Mode of arrival: ambulatory Limitations: no limitations History of Present Illness HPI narrative: this is a 63-year-old female that recently diagnosed with diabetes and hypertension and had an ulcer on her left heel that saw surgery at [place] and had debridement. The patient had a follow-up with her primary and to have blood work performed on the 04 of May which showed a potassium level of 2.7 with a magnesium level of 1.1 and was sent to the emergency room for replacement of her potassium and magnesium. Patient currently has no chest pain no shortness of breath no palpitations. There is no nausea vomiting no abdominal pain no diarrhea constipation. Initial visit (ago): day(s) Related Data Allergies Allergy/AdvReac Type Severity Reaction Status Date / Time amoxicillin Allergy Intermediate unknown Verified 05/05/24 17:32 erythromycin base Allergy Intermediate unknown Verified 05/05/24 17:32 Sulfa (Sulfonamide Allergy Intermediate Unknown Verified 05/05/24 17:32 Antibiotics) Review of Systems Review of Systems: All systems reviewed & are unremarkable except as noted in HPI and below PMFSH Past Medical History Medical History Colon cancer screening Diabetes History of chicken pox History of shingles Migraines Surgical History Surgical History H/O oral surgery Social History Social History Smoking status: Never smoker Tobacco type: cigarettes Second hand tobacco smoke exposure: No Alcohol intake: never Alcohol use details: Allergy to beer Substance use: never Substance use type: does not use Do You Feel Safe in your Home?: Yes Lack of Transportation: No Lack of Food: Never True Current Housing: I Have Housing Concerned About Future Housing: No Difficulty Paying Gas/Electric Bills: No Difficulty Paying for Meds: No Currently Unemployed: No Education: High School Diploma/GED Difficulty w/ Childcare or Family Care: No Spiritual care concerns: No Exam Const: General: healthy appearing and no acute distress Nutritional Appearance: well nourished Orientation/consciousness: patient oriented x3 Limitations: no limitations HENMT: Head: normal to inspection Eyes: Conjunctivae: conjunctivae normal Pupils: Equal, round and reactive pupils present Neck: Neck: normal visual inspection, no lymphadenopathy and no meningeal signs Chest: Chest palpation & inspection: normal inspection of the chest Resp: Effort & Inspection: normal respiratory effort Auscultation: clear to auscultation bilaterally Cardio: Rate: regular rate Rhythm: regular rhythm GI: GI Palp: Yes Soft to palpation Auscultation: normal bowel sounds : General: Yes bladder normal to palpation Skin: General skin exam: normal color Rashes: no rashes Wounds: wounds noted Neuro: General: patient oriented x3 and moves all extremities Extrem: General: normal to inspection and edema Course Course Emergency Course: Patient with abnormally low potassium and magnesium on recent blood draws and yesterday with a potassium of 2.7 and magnesium of 1.1 EKG performed shows first-degree AV block otherwise sinus rhythm with a heart rate of 72. Patient started on IV fluids and started on IV potassium and IV magnesium and will admit patient for observation. Vital Signs Vital signs: Vital Signs Temperature 36.7 C 05/05/24 17:22 Pulse Rate 71 05/05/24 17:22 Respiratory Rate 14 05/05/24 17:22 Blood Pressure 108/69 05/05/24 17:22 Pulse Oximetry 100 05/05/24 17:22 Oxygen Delivery Room Air 05/05/24 17:22 Temperature 36.7 C 05/05/24 17:22 Pulse Rate 71 05/05/24 17:22 Respiratory Rate 14 05/05/24 17:22 Blood Pressure 108/69 05/05/24 17:22 Pulse Oximetry 100 05/05/24 17:22 Oxygen Delivery Room Air 05/05/24 17:22 Critical Care Time Critical Care Time Critical Care Time: No Discharge Plan Discharge Clinical Impression: Acute hypokalemia, Hypomagnesemia Patient Disposition: Acute Care Hospital [facility] Condition: Guarded Prognosis Prescriptions: No Action pantoprazole 40 mg tablet,delayed release (DR/EC) 40 mg PO QHS Qty: 30 1RF metoclopramide HCl [Reglan] 10 mg tablet 10 mg PO Q6H PRN (Reason: nausea and vomiting) Qty: 60 2RF levofloxacin 750 mg tablet 750 mg PO DAILY Qty: 30 0RF lisinopril 20 mg Tablet 20 mg PO QAM Qty: 90 0RF metformin 500 mg tablet extended release 24 hr 500 mg PO BID Qty: 90 0RF Rx Instructions: take 500 mg daily for 1 week, the increase to twice a day. (DME) blood-glucose meter Kit See Rx Instructions .Route Qty: 1 0RF Rx Instructions: As directed insulin glargine [Lantus Solostar U-100 Insulin] 100 unit/mL (3 mL) insulin pen 15 unit subcut QPM Qty: 15 3RF amlodipine 10 mg tablet 10 mg PO DAILY Qty: 90 0RF ondansetron 4 mg tablet,disintegrating 4 mg PO Q8H PRN (Reason: nausea and vomiting) Qty: 30 0RF Follow-up/Referrals: Diann Crani NP [Primary Care Provider] -
[2024-05-05 18:23] LABS: Basophils Absolute Auto 0.11 K/mm3 (0.00-0.10); Basophils Percent Auto 1.6 % (0.0-1.0); Eosinophils Absolute Auto 0.24 K/mm3 (0.02-0.50); Eosinophils Percent Auto 3.6 % (1.0-6.0); Hematocrit 35.9 % (35.0-49.0); Hemoglobin 12.6 g/dL (12.0-15.0); Immature Granulocyte Absolute 0.02 K/mm3 (0.00-0.00); Immature Granulocyte Percent A 0.3 % (0.0-0.0); Lymphocytes Absolute Auto 0.84 K/mm3 (1.10-4.50); Lymphocytes Percent Auto 12.4 % (18.0-42.0); Mean Corpuscular HGB Conc 35.1 g/dL (32-36); Mean Corpuscular Volume 79.8 fL (78.0-102.0); Mean Platelet Volume 9.7 fl (9.2-11.8); Monocytes Absolute Auto 0.65 K/mm3 (0.10-0.90); Monocytes Percent Auto 9.6 % (2.0-11.0); Neutrophils Absolute Auto 4.89 K/mm3 (1.70-7.20); Neutrophils Percent Auto 72.5 % (50.0-70.0); Platelet Count Result 166 K/mm3 (150-420); Red Cell Distribution Width 13.9 % (11.6-14.4); White Blood Count 6.8 K/mm3 (4.8-10.8)
[2024-05-05 18:43] LABS: Alanine Aminotransferase 15 U/L (14-59); Albumin Level 2.7 g/dL (3.4-5.0); Alkaline Phosphatase 34 U/L (46-116); Anion Gap 13 mmol/L (4-12); Aspartate Amino Transferase 13 U/L (15-37); Bilirubin,Total 0.6 mg/dL (0.00-1.00); Blood Urea Nitrogen 7 mg/dL (7-18); Calcium 8.5 mg/dL (8.5-10.1); Carbon Dioxide 29 mmol/L (21-32); Chloride 97 mmol/L (98-108); Estimated CRCL calculation 71 ml/min; Estimated Glomerular Filt Rate > 60; Glucose 151 mg/dL (70-99); Osmolality Calculated 289 mOsm/kg (285-295); Sodium 139 mmol/L (136-145); Total Protein 5.5 g/dL (6.4-8.2)
[2024-05-05 18:46] LABS: Potassium 2.4 mmol/L (3.5-5.1)
--- NOTE | 2024-05-05 18:55 | PC.NURSE ---
ASSUMED CARE. REPORT RECEIVED FROM AMBROCIO DOMÍNGUEZ. AWAITING CALL FROM [facility] FOR TRANSFER.
--- NOTE | 2024-05-05 19:00 | PC.NURSE ---
Report received, pt resting and awaiting to be admitted, VSS. Monitor shows NSR. IVF infusing as per order.
[2024-05-05] MEDS: SODIUM CHLORIDE 0.9% IV 1,000 ML 100 ML IV CONT ×2 (19:05→21:59)
--- NOTE | 2024-05-05 19:15 | PC.NURSE ---
Call received from SANG Escobedo. Pt ready to be admitted. Belongings gathered for admit. VSS.
--- NOTE | 2024-05-05 19:45 | ADMGEN ---
This patient, Ida Grande, was admitted to 2nd Floor Room 209-1. Patient/family oriented to hospital policies and general routines including ID bracelet, bed and alarms, visiting hours, pain management, procedures, bathroom and other care routines, personal items, smoking policy, room service/diet, and visiting hours. Information on how to activate the Rapid Response Team has been discussed. Patient/Family are encouraged to report perceived risks to care and to ask questions if they do not understand what they are told or what they should do.
[2024-05-05] MEDS: ONDANSETRON INJ 4 MG/2 ML VIAL IV PUSH (20:06)
[2024-05-05] MEDS: MAGNESIUM SULF 2 GM/WATER 50ML 2 GM/50 ML BAG IVPB (20:07)
[2024-05-05] MEDS: PANTOPRAZOLE 40 MG TABLET PO (21:59)
[2024-05-05 22:02] LABS: Glucose Point of Care 135 mg/dl (65-105)
[2024-05-06] VITALS: BP 140/77; PULSE 70; PULSE 75; RESP 16; TEMP 36.7; O2SAT 95
[2024-05-06 04:00] VITALS: PULSE 70
[2024-05-06 07:56] LABS: Glucose Point of Care 144 mg/dl (65-105)
[2024-05-06 08:00] VITALS: BP 139/69; PULSE 71; PULSE 72; RESP 12; TEMP 36.4; O2SAT 96
--- NOTE | 2024-05-06 08:00 | P.SS_ITS ---
Same Day Admit/Disch: HPI History of Present Illness Chief complaint: HYPOKALEMIA HYPOMAGNESEMIA Narrative: Ida Grande is a 63 year old female Who was sent to the emergency department by her primary care physician after having labs drawn previous day showing a potassium 2.7 and a magnesium of 1.1. patient had recent hospitalization for debridement of left heel ulceration. Per previous medical chart patient with episodes of nausea and vomiting while hospitalized as well as hypertension which were stabilized prior to discharge. patient had denied any chest pain, shortness of breath, palpitations, nausea, vomiting or diarrhea. patient was admitted to the medical unit for further treatment of hypokalemia and hypo magnesium. [facility] Past Medical History Medical History Colon cancer screening Diabetes History of chicken pox History of shingles Migraines Surgical History Surgical History H/O oral surgery Social History Social History Smoking status: Never smoker Tobacco type: cigarettes Second hand tobacco smoke exposure: No Alcohol intake: never Alcohol use details: Allergy to beer Substance use: never Substance use type: does not use Do You Feel Safe in your Home?: Yes Lack of Transportation: YES Lack of Food: Never True Current Housing: I Have Housing Concerned About Future Housing: No Difficulty Paying Gas/Electric Bills: No Difficulty Paying for Meds: No Currently Unemployed: No Education: High School Diploma/GED Difficulty w/ Childcare or Family Care: No Spiritual care concerns: No Same Day Admit/Disch: Med Pre-admit Medications Home Medications Medication Instructions Recorded Confirmed Type levofloxacin 750 mg tablet 750 mg PO DAILY #30 tabs 04/22/24 05/05/24 Rx blood-glucose meter #1 ea 04/25/24 05/05/24 Rx insulin glargine 100 unit/mL (3 15 unit (0.15 mL) subcut QPM #15 mL 04/25/24 05/05/24 Rx mL) subcutaneous pen (Lantus Solostar U-100 Insulin) lisinopril 20 mg tablet 20 mg PO QAM #90 tabs 04/25/24 05/05/24 Rx metformin 500 mg tablet,extended 500 mg PO BID #90 tabs 04/25/24 05/05/24 Rx release 24 hr amlodipine 10 mg tablet 10 mg PO DAILY #90 tabs 04/29/24 05/05/24 Rx ondansetron 4 mg disintegrating 4 mg PO Q8H PRN nausea and 04/29/24 05/05/24 Rx tablet vomiting #30 tabs metoclopramide HCl 10 mg tablet 10 mg PO Q6H PRN nausea and 05/04/24 05/05/24 Rx (Reglan) vomiting #60 tabs pantoprazole 40 mg tablet,delayed 40 mg PO QHS #30 tabs 05/04/24 05/05/24 Rx release magnesium oxide 400 mg PO DAILY #30 tabs 05/06/24 Rx potassium chloride 20 mEq 20 meq PO BID #30 tabs 05/06/24 Rx tablet,extended release(part/cryst) Review of Systems Review of Systems All systems reviewed & are unremarkable except as noted in HPI and below Exam Narrative: * GENERAL: Alert and oriented x 3. No acute distress. * EYES: EOMI. No scleral icterus. PERRLA. * HEENT: Moist mucous membranes. * LUNGS: Clear to auscultation bilaterally. No accessory muscle use. * CARDIOVASCULAR: Regular rate and rhythm. No murmur. No JVD. S1-S2 * ABDOMEN: Soft, non tenderness and non-distended. No palpable masses. * EXTREMITIES: No edema. Non-tender * SKIN: No rashes or lesions. Skin warm, dry. * NEUROLOGIC: No focal neurological deficits. CN II-XII grossly intact * PSYCHIATRIC: Appropriate mood and affect. Good judgement and insight. No visual or auditory hallucinations. No suicidal or homicidal ideation. DS: Data Data Completed and Pending Labs on day of discharge: Labs from last 24 hours 05/06/24 05/05/24 05/05/24 07:50 22:01 18:18 WBC 6.8 RBC 4.50 Hgb 12.6 Hct 35.9 MCV 79.8 MCH 28.0 MCHC 35.1 RDW 13.9 Plt Count 166 MPV 9.7 Immature Gran % (Auto) 0.3 H Neut % (Auto) 72.5 H Lymph % (Auto) 12.4 L [place] % (Auto) 9.6 Eos % (Auto) 3.6 Baso % (Auto) 1.6 H Lymph # (Auto) 0.84 L [place] # (Auto) 0.65 Eos # (Auto) 0.24 Baso # (Auto) 0.11 H Abs Immat Gran (auto) 0.02 H Absolute Neuts (auto) 4.89 Absolute Nucleated RBC 0.00 Nucleated RBC % 0.0 Sodium 139 Potassium 2.4 L* Chloride 97 L Carbon Dioxide 29 Anion Gap 13 H BUN 7 Creatinine 0.71 Estim Creat Clear Calc 71 Estimated GFR > 60 Glucose 151 H POC Capillary Glucose 144 H 135 H Calculated Osmolality 289 Calcium 8.5 Total Bilirubin 0.6 AST 13 L ALT 15 Alkaline Phosphatase 34 L Total Protein 5.5 L Albumin 2.7 L DS: Summary Hospital Course Reason for hospitalization: hypokalemia/ hypo magnesium Hospital Course: patient is a 63-year-old female who was sent to the emergency department from her primary care physician after previous labs showed hypokalemia at 2.7 and hypo magnesium at 1.1. On admission patient's potassium was 2.4 ER initiated oral potassium as well as IV potassium with 2 g of magnesium. patient with recent hospitalization for debridement a decubitus ulceration and newly diagnosed hypertension and diabetes which were stabilized prior to her discharge from [facility]. EKG in the ER showed sinus rhythm with first-degree block no ST or T wave changes. patient had denied any chest pain, shortness of breath, palpitations, nausea, vomiting or diarrhea. Status at Discharge Functional status at discharge: independent ambulation Overall status at discharge: patient is back to baseline Time Spent with Patient Time attestation: Total time spent providing and/or coordinating discharge services: Time spent: Greater than 30 minutes DS: Admitting Diagnosis Discharge Date 05/06/2024 Admitting Diagnosis hypokalemia/ hypomagnesemia DS: Discharge Diagnosis Discharge Diagnosis (1) Acute hypokalemia: Code(s): E87.6 - Hypokalemia Status: Acute (2) Hypomagnesemia: Code(s): E83.42 - Hypomagnesemia Status: Acute Plan disposition: discharged to home Discharge Plan Discharge Attending physician on discharge: Juancarlos Daley Discharging Clinician: Francy Soni Anticipated Discharge Date/Time: 05/06/24 08:05 Patient Disposition: Home, Self-Care Activity: as tolerated Diet: diabetic Discharge Instructions: You are being discharged home after diagnosis of hypokalemia which means low potassium as well as hypo magnesium which means low magnesium during your hospitalization we did replenish both electrolytes with IV and oral. your follow-up labs showed improvement to electrolytes. I have prescribed oral potassium and magnesium as well as an order for a follow-up labs within 1 week to evaluate your potassium and magnesium levels. I have attached information and education on hypokalemia and hypomagnesium. How can you care for yourself at home? ? Keep track of any new symptoms or changes in your symptoms. ? Rest until you feel better. ? Be safe with medicines. Take your medicines exactly as prescribed. Call your doctor if you think you are having a problem with your medicine. ? Do not drive after taking a prescription pain medicine. ? Ensure to follow-up with primary care physician as indicated and provide updated medication list provided to you at discharge. When should you call for help? Call 911 anytime you think you may need emergency care. For example, call if: ? You passed out (lost consciousness). Call your doctor now or seek immediate medical care if: ? You have new symptoms like fever, difficulty breathing, Chest pain, vomiting, or rash. ? You have new or different pain. ? You are confused and are having trouble thinking clearly. ? Your symptoms are getting worse. Watch closely for changes in your health, and be sure to contact your doctor if: ? You do not get better as expected. Patient Instructions: Antibiotic Form, Metformin (By mouth), Hypokalemia (DC), Hypomagnesemia (DC) Patient Language: Lao Stand Alone Forms: General Discharge Information Follow-up/Referrals: Diann Crain BOOKKEEPER RECEPTIONIST [Primary Care Provider] - 1 week (Repeat labs potassium and magnesium) Discharge Medications: New potassium chloride 20 mEq tablet,ER particles/crystals 20 meq PO BID Qty: 30 0RF magnesium oxide 400 mg magnesium tablet 400 mg PO DAILY Qty: 30 0RF Continued pantoprazole 40 mg tablet,delayed release (DR/EC) 40 mg PO QHS Qty: 30 1RF metoclopramide HCl [Reglan] 10 mg tablet 10 mg PO Q6H PRN (Reason: nausea and vomiting) Qty: 60 2RF levofloxacin 750 mg tablet 750 mg PO DAILY Qty: 30 0RF lisinopril 20 mg Tablet 20 mg PO QAM Qty: 90 0RF metformin 500 mg tablet extended release 24 hr 500 mg PO BID Qty: 90 0RF Rx Instructions: take 500 mg daily for 1 week, the increase to twice a day. (DME) blood-glucose meter Kit See Rx Instructions .Route Qty: 1 0RF Rx Instructions: As directed insulin glargine [Lantus Solostar U-100 Insulin] 100 unit/mL (3 mL) insulin pen 15 unit subcut QPM Qty: 15 3RF amlodipine 10 mg tablet 10 mg PO DAILY Qty: 90 0RF ondansetron 4 mg tablet,disintegrating 4 mg PO Q8H PRN (Reason: nausea and vomiting) Qty: 30 0RF Other Ambulatory Orders: Basic Metabolic Panel (Routine) Timeframe: 1 Week Location: Determined by Patient Ordered By: Francy Soni Magnesium (Routine) Timeframe: 1 Week Location: Determined by Patient Ordered By: Francy Soni Date of admission: 05/05/24 18:49 Primary Care Provider: Diann Crain Admitting Provider: Juancarlos Daley Attending physician on admission: Francy Soni Condition: Stable Quality If No VTE Prophylaxis Answer both mechanical and pharmacologic: Reason no mechanical VTE proph: low risk/not indicated -Patient's previous records reviewed on admission -ER notes reviewed in detail on admission -discussed all findings and current treatment plan with patient/Family/POA -Consultations reviewed for recommendations -Patient's disposition for safe discharge discussed with oil field caser Dictation performed by [employer] direct speech recognition software, therefore labor relations teacher variants and typographical errors may occur. Hospitalist MIPS Advance Care Plan I have confirmed that the patient's Advanced Care Plan is present, code status is documented, or surrogate decision maker is listed in patient medical record.: Yes Medication Reconciliation I have utilized all available resources to obtain, update and review the patients current medications (includes all prescriptions, OTC, herbals, cannabis, and nutritional supplements).: Yes The patient is not eligible for med reconciliation; the patient is in a emergent medical situation where delaying treatment would jeopardize the patients health.: No Heart Failure (Exclusion) Patient has history of Heart Transplant or Left Ventricular Assistive Device?: No IF YES, STOP HERE Heart Failure (Qualifier) Patient has current or prior documentation of LVEF less than or equal to 40%, or mod/servere depressed LVSF?: No IF NO, STOP HERE
[2024-05-06 08:19] LABS: Basophils Percent Auto 2.2 % (0.0-1.0); Eosinophils Absolute Auto 0.26 K/mm3 (0.02-0.50); Eosinophils Percent Auto 5.7 % (1.0-6.0); Hematocrit 37.7 % (35.0-49.0); Hemoglobin 12.8 g/dL (12.0-15.0); Immature Granulocyte Absolute 0.02 K/mm3 (0.00-0.00); Immature Granulocyte Percent A 0.4 % (0.0-0.0); Lymphocytes Absolute Auto 0.82 K/mm3 (1.10-4.50); Lymphocytes Percent Auto 17.8 % (18.0-42.0); Mean Corpuscular Hemoglobin 27.4 pg (27.0-31.0); Mean Corpuscular Volume 80.6 fL (78.0-102.0); Mean Platelet Volume 9.5 fl (9.2-11.8); Monocytes Absolute Auto 0.43 K/mm3 (0.10-0.90); Monocytes Percent Auto 9.3 % (2.0-11.0); Neutrophils Absolute Auto 2.97 K/mm3 (1.70-7.20); Neutrophils Percent Auto 64.6 % (50.0-70.0); Platelet Count Result 169 K/mm3 (150-420); Red Blood Count 4.68 M/mm3 (4.20-5.40); Red Cell Distribution Width 14.2 % (11.6-14.4); White Blood Count 4.6 K/mm3 (4.8-10.8)
[2024-05-06 08:35] LABS: Alanine Aminotransferase 15 U/L (14-59); Albumin Level 2.8 g/dL (3.4-5.0); Alkaline Phosphatase 39 U/L (46-116); Anion Gap 14 mmol/L (4-12); Aspartate Amino Transferase 14 U/L (15-37); Bilirubin,Total 0.7 mg/dL (0.00-1.00); Blood Urea Nitrogen 5 mg/dL (7-18); Carbon Dioxide 27 mmol/L (21-32); Chloride 100 mmol/L (98-108); Estimated CRCL calculation 77 ml/min; Estimated Glomerular Filt Rate > 60; Glucose 143 mg/dL (70-99); Magnesium 1.1 mg/dL (1.8-2.4); Osmolality Calculated 291 mOsm/kg (285-295); Potassium 2.8 mmol/L (3.5-5.1); Sodium 141 mmol/L (136-145); Total Protein 5.7 g/dL (6.4-8.2)
[2024-05-06] MEDS: amLODIPine BESYLATE 5 MG TABLET 10 MG PO (08:58)
[2024-05-06] MEDS: POTASSIUM CHLORIDE 20 MEQ ER TABLET 40 MEQ PO (08:58)
[2024-05-06] MEDS: metFORMIN HCL XR 500 MG TAB.SR.24H PO ×2 (08:59→16:43)
[2024-05-06] MEDS: lisinopriL 20 MG TABLET PO (08:59)
[2024-05-06] MEDS: SODIUM CHLORIDE 0.9% IV 1,000 ML 100 ML IV CONT (10:26)
[2024-05-06] MEDS: MAGNESIUM SULF 4 GM/WATER100ML 4 GM/100 ML BAG IVPB (10:38)
[2024-05-06] MEDS: KCL 20 MEQ/SW 100 ML 100 ML 50 MEQ IVPB ×2 (10:52→13:44)
--- NOTE | 2024-05-06 10:55 | PC.NURSE ---
IV MG and IV KCL started at 1050. KCL is running at 33/ml to prevent pain at infusion site. ro
[2024-05-06 11:55] LABS: Glucose Point of Care 141 mg/dl (65-105)
[2024-05-06 11:59] VITALS: PULSE 71
[2024-05-06] MEDS: ACETAMINOPHEN 325 MG TABLET 650 MG PO (13:45)
[2024-05-06 16:00] VITALS: PULSE 67
[2024-05-06 16:10] LABS: Anion Gap 9 mmol/L (4-12); Blood Urea Nitrogen 4 mg/dL (7-18); Calcium 7.8 mg/dL (8.5-10.1); Carbon Dioxide 28 mmol/L (21-32); Chloride 100 mmol/L (98-108); Estimated CRCL calculation 79 ml/min; Estimated Glomerular Filt Rate > 60; Glucose 140 mg/dL (70-99); Magnesium 1.9 mg/dL (1.8-2.4); Osmolality Calculated 282 mOsm/kg (285-295); Potassium 3.8 mmol/L (3.5-5.1); Sodium 137 mmol/L (136-145)
[2024-05-06 16:40] VITALS: BP 133/68; PULSE 67; RESP 16; TEMP 36.1; O2SAT 95
[2024-05-06 16:48] LABS: Glucose Point of Care 128 mg/dl (65-105)
--- NOTE | 2024-05-06 17:35 | PC.NURSE ---
Patient discharging home. All belongings gathered together and sent home with patient. All discharge instructions and education reviewed with patient. Patient states understanding. IV site to right AC and left forearm remove, tip intact. Dressing applied to both sites. Patient denies any questions at time of discharge. This nurse accompanied patient to front door via wheelchair, left in private vehicle with daughter in law.
--- NOTE | 2024-05-09 09:56 | PC.NURSE ---
Discharge call back attempted no answer
== END 2024-05-06 17:35 | disposition home or self-care (01) ==
LOC: CHSED 18:08 → CHS2ND 18:57
PROVIDERS: Admitting Provider Internal Medicine; Emergency Provider Emergency Medicine; PCP Nurse Practitioner Family; Visit Provider Nurse Practitioner Family
DX: E87.6 Hypokalemia (principal); E83.42 Hypomagnesemia; E11.9 Type 2 diabetes mellitus without complications; I10 Essential (primary) hypertension; Z79.4 Long term (current) use of insulin; Z79.84 Long term (current) use of oral hypoglycemic drugs; Z79.899 Other long term (current) drug therapy
CPT/HCPCS: 36415; 80048; 80053; 82948; 83735; 85025; 93005; 96361; 96365; 96366; 96367; 96375; 99285; A9270; G0378; J2405; J3475; J3480; J7030

== ENCOUNTER 2024-05-11 08:55 | Outpatient (CLI) | payer BC, SELFPAY ==
[2024-05-11 09:44] LABS: Alanine Aminotransferase 18 U/L (14-59); Albumin Level 3.3 g/dL (3.4-5.0); Alkaline Phosphatase 37 U/L (46-116); Anion Gap 5 mmol/L (4-12); Aspartate Amino Transferase 15 U/L (15-37); Bilirubin,Total 0.4 mg/dL (0.00-1.00); Blood Urea Nitrogen 6 mg/dL (7-18); Calcium 9.4 mg/dL (8.5-10.1); Carbon Dioxide 32 mmol/L (21-32); Chloride 102 mmol/L (98-108); Cholesterol 149 mg/dL (0-200); Estimated Glomerular Filt Rate > 60; Glucose 117 mg/dL (70-99); HDL Direct 50 mg/dL (40-60); LDL Cholesterol Calculated 73 mg/dL (<130); Magnesium 1.5 mg/dL (1.8-2.4); Osmolality Calculated 286 mOsm/kg (285-295); Potassium 4.9 mmol/L (3.5-5.1); Sodium 139 mmol/L (136-145); Total Protein 6.2 g/dL (6.4-8.2); Triglycerides 129 mg/dL (0-150)
== END 2024-05-11 08:56 | disposition home or self-care (01) ==
LOC: CHSLAB 09:00
PROVIDERS: Nurse Practitioner Family; PCP Nurse Practitioner Family; Visit Provider Nurse Practitioner Family
DX: Z00.00 Encounter for general adult medical examination without abnormal findings (principal); E83.42 Hypomagnesemia; I10 Essential (primary) hypertension; E87.6 Hypokalemia
CPT/HCPCS: 36415; 80053; 80061; 83735

== ENCOUNTER 2024-05-18 15:52 | Outpatient (CLI) | payer BC, SELFPAY ==
[2024-05-18 16:44] LABS: Alanine Aminotransferase 17 U/L (14-59); Albumin Level 3.9 g/dL (3.4-5.0); Alkaline Phosphatase 35 U/L (46-116); Anion Gap 9 mmol/L (4-12); Aspartate Amino Transferase 15 U/L (15-37); Bilirubin,Total 0.6 mg/dL (0.00-1.00); Blood Urea Nitrogen 16 mg/dL (7-18); Calcium 10.1 mg/dL (8.5-10.1); Carbon Dioxide 26 mmol/L (21-32); Chloride 99 mmol/L (98-108); Estimated Glomerular Filt Rate 38; Glucose 125 mg/dL (70-99); Magnesium 1.6 mg/dL (1.8-2.4); Osmolality Calculated 280 mOsm/kg (285-295); Potassium 5.3 mmol/L (3.5-5.1); Sodium 134 mmol/L (136-145); Total Protein 7.4 g/dL (6.4-8.2)
== END 2024-05-18 15:53 | disposition home or self-care (01) ==
PROVIDERS: PCP Nurse Practitioner Family; Visit Provider Nurse Practitioner Family
DX: I10 Essential (primary) hypertension (principal); E87.6 Hypokalemia; E83.42 Hypomagnesemia
CPT/HCPCS: 36415; 80053; 83735

== ENCOUNTER 2024-05-31 13:40 | Outpatient (CLI) | payer BC, SELFPAY ==
[2024-05-31 14:03] LABS: Basophils Absolute Auto 0.09 K/mm3 (0.00-0.10); Basophils Percent Auto 1.2 % (0.0-1.0); Eosinophils Absolute Auto 0.42 K/mm3 (0.02-0.50); Eosinophils Percent Auto 5.6 % (1.0-6.0); Hematocrit 44.1 % (35.0-49.0); Hemoglobin 14.3 g/dL (12.0-15.0); Immature Granulocyte Absolute 0.03 K/mm3 (0.00-0.00); Immature Granulocyte Percent A 0.4 % (0.0-0.0); Lymphocytes Absolute Auto 0.73 K/mm3 (1.10-4.50); Lymphocytes Percent Auto 9.8 % (18.0-42.0); Mean Corpuscular HGB Conc 32.4 g/dL (32-36); Mean Corpuscular Hemoglobin 26.9 pg (27.0-31.0); Mean Corpuscular Volume 83.1 fL (78.0-102.0); Monocytes Absolute Auto 0.58 K/mm3 (0.10-0.90); Monocytes Percent Auto 7.8 % (2.0-11.0); Neutrophils Percent Auto 75.2 % (50.0-70.0); Platelet Count Result 159 K/mm3 (150-420); Red Blood Count 5.31 M/mm3 (4.20-5.40); Red Cell Distribution Width 13.2 % (11.6-14.4); White Blood Count 7.5 K/mm3 (4.8-10.8)
[2024-05-31 14:09] LABS: Add Urine Microscopic? YES; Appearance Urine Clear (Clear); Bilirubin Urine Negative (Negative); Blood Urine 1+ (Negative); Color Urine Light Yellow (Yellow); Glucose Urine UA Negative (Negative); Ketones Urine Negative (Negative); Leukocyte Esterase Ur Trace LEU/UL (Negative); Nitrate Urine Negative (Negative); Protein Urine Negative (Negative); Specific Grav Ur >= 1.030 (1.010-1.020); Urobilinogen Urine 0.2 mg/dL (0.2-1.0)
[2024-05-31 14:16] LABS: Bacteria Urine 1+ /hpf; Mucus Urine Few /lpf; Squamous Epithelial Cell Urine Occasional /hpf (Few)
[2024-05-31 14:38] LABS: Alanine Aminotransferase 20 U/L (14-59); Albumin Level 3.7 g/dL (3.4-5.0); Alkaline Phosphatase 34 U/L (46-116); Amylase 35 U/L (25-115); Anion Gap 10 mmol/L (4-12); Aspartate Amino Transferase 15 U/L (15-37); Bilirubin,Total 0.5 mg/dL (0.00-1.00); Blood Urea Nitrogen 13 mg/dL (7-18); Calcium 9.7 mg/dL (8.5-10.1); Carbon Dioxide 27 mmol/L (21-32); Chloride 100 mmol/L (98-108); Estimated Glomerular Filt Rate 59; Glucose 115 mg/dL (70-99); Lipase 46 U/L (16-77); Magnesium 1.6 mg/dL (1.8-2.4); Osmolality Calculated 285 mOsm/kg (285-295); Potassium 4.7 mmol/L (3.5-5.1); Sodium 137 mmol/L (136-145); Total Protein 6.4 g/dL (6.4-8.2)
== END 2024-05-31 13:41 | disposition home or self-care (01) ==
PROVIDERS: PCP Nurse Practitioner Family; Visit Provider Nurse Practitioner Family
DX: R11.2 Nausea with vomiting, unspecified (principal); N28.9 Disorder of kidney and ureter, unspecified
CPT/HCPCS: 36415; 80053; 81001; 82150; 83690; 83735; 85025

== ENCOUNTER 2024-07-08 01:48 | Day surgery (SDC) | payer BC, SELFPAY ==
[2024-06-23 14:11] VITALS: BMI 24.5
[2024-07-08 08:42] VITALS: BP 137/74; PULSE 80; RESP 20; TEMP 36; O2SAT 99
--- NOTE | 2024-07-08 08:44 | SUR.PREOP ---
At 08:35 the blood glucose was 112 per patients Malathi glucose monitor.
[2024-07-08] MEDS: LACTATED RINGERS 1,000 ML 150 ML IV CONT (08:52)
--- NOTE | 2024-07-08 09:04 | P.HP_ITS ---
H&P: [facility] History of Present Illness Date/Time: 07/08/24 09:04 Chief Complaint: This patient had foot surgery in April 2024, and during her hospitalization and several weeks after discharge, she had protracted nausea and vomiting. These symptoms subsided and she is currently treated with pantoprazole for GERD, well controlled. She is referred for EGD. In addition, she is also referred for screening colonoscopy for the 1st time. There is no family history of colorectal cancer. Review of Systems Review of Systems: All systems reviewed & are unremarkable except as noted in HPI and below PMFSH Past Medical History Medical History Colon cancer screening Migraines Diabetes History of shingles History of chicken pox Surgical History Surgical History History of incision and drainage 04/18/24 Complex incision and drainage of diabetic left foot abscess. Dr. Dominique H/O oral surgery Social History Social History Smoking status: Never smoker Tobacco type: cigarettes Second hand tobacco smoke exposure: No Alcohol intake: never Alcohol use details: Allergy to beer Substance use: never Substance use type: does not use Do You Feel Safe in your Home?: Yes Lack of Transportation: YES Lack of Food: Never True Current Housing: I Have Housing Concerned About Future Housing: No Difficulty Paying Gas/Electric Bills: No Difficulty Paying for Meds: No Currently Unemployed: No Education: High School Diploma/GED Difficulty w/ Childcare or Family Care: No Spiritual care concerns: No Meds Home Medications and Allergies Home Medications ?Medication ?Instructions ?Recorded ?Confirmed ?Type blood-glucose meter #1 ea 04/25/24 06/29/24 Rx insulin glargine 100 unit/mL (3 15 unit (0.15 mL) subcut QPM #15 mL 04/25/24 07/08/24 Rx mL) subcutaneous pen (Lantus Solostar U-100 Insulin) metoclopramide HCl 10 mg tablet 10 mg PO Q6H PRN nausea and 05/04/24 07/08/24 Rx (Reglan) vomiting #60 tabs lancets 28 gauge (Acti-Estuardo #100 ea 05/23/24 06/29/24 Rx Lancets) levofloxacin 750 mg tablet 750 mg PO DAILY #30 tabs 05/23/24 07/08/24 Rx magnesium oxide 400 mg PO BID #60 tabs 05/23/24 07/08/24 Rx metformin 500 mg tablet,extended 500 mg PO BID #90 tabs 05/23/24 07/08/24 Rx release 24 hr pen needle, diabetic 31 gauge x #100 ea 05/23/24 06/29/24 Rx 3/16 (Comfort EZ Pen [place]) potassium chloride 20 mEq 20 meq PO DAILY #30 tabs 05/25/24 07/08/24 Rx tablet,extended release(part/cryst) pantoprazole 40 mg tablet,delayed 40 mg PO QHS #90 tabs 05/26/24 07/08/24 Rx release blood sugar diagnostic (Blood #50 ea 07/04/24 Rx Glucose Test strips) ondansetron 4 mg disintegrating 4 mg PO Q8H PRN nausea and 07/05/24 07/08/24 Rx tablet vomiting #30 tabs Allergies Allergy/AdvReac Type Severity Reaction Status Date / Time Yeast Allergy Severe Anaphylactic Verified 07/08/24 08:38 Shock amoxicillin Allergy Intermediate unknown Verified 07/08/24 08:38 erythromycin base Allergy Intermediate unknown Verified 07/08/24 08:38 Sulfa (Sulfonamide Allergy Intermediate Unknown Verified 07/08/24 08:38 Antibiotics) Vital Signs Vital Signs - 24 hr 07/08/24 08:42 Temperature 96.8 F L Pulse Rate 80 Respiratory Rate 20 Blood Pressure 137/74 Pulse Oximetry 99 Oxygen Delivery Room Air Exam Const: General: cooperative and healthy appearing Resp: Effort & Inspection: normal respiratory effort and able to speak in complete sentences Auscultation: clear to auscultation bilaterally Cardio: Rate: regular rate Rhythm: regular rhythm GI: Inspection: normal to inspection GI Palp: No No hepatosplenomegaly present Auscultation: normal bowel sounds Rectal Exam: deferred Skin: General skin exam: normal color Psych: Appearance: grossly normal Mental Status: mental status grossly normal Assessment and Plan Assessment and plan (1) Nausea & vomiting: Code(s): R11.2 - Nausea with vomiting, unspecified Status: Acute Assessment and Plan: The patient is deemed a good candidate for the procedures. Consent signed. Will proceed. (2) Colon cancer screening: Code(s): Z12.11 - Encounter for screening for malignant neoplasm of colon Status: Acute
--- NOTE | 2024-07-08 09:12 | WPDANESEPPF ---
Anes - Initial Pre Proc Eval Procedure: Operation Date: 07/08/24 09:30 Proposed Procedures p Esophagogastroduodenoscopy&Screen Colon - John Morrison MD Date/Time: 07/08/24 09:12 Surgeon: John Morrison MD Pre Op Diagnosis: nausea w/ vomiting, screening colon Patient Data Age: 63 Gender: F Height: 1.73 m Weight: 73 kg Last Vital Signs Temp 96.8 F L 07/08/24 08:42 Pulse 80 07/08/24 08:42 Resp 20 07/08/24 08:42 BP 137/74 07/08/24 08:42 Pulse Ox 99 07/08/24 08:42 O2 Del Method Room Air 07/08/24 08:42 Allergies Allergy/AdvReac Type Severity Reaction Status Date / Time Yeast Allergy Severe Anaphylactic Verified 07/08/24 08:38 Shock amoxicillin Allergy Intermediate unknown Verified 07/08/24 08:38 erythromycin base Allergy Intermediate unknown Verified 07/08/24 08:38 Sulfa (Sulfonamide Allergy Intermediate Unknown Verified 07/08/24 08:38 Antibiotics) Home Medications ?Medication ?Instructions ?Recorded ?Confirmed ?Type blood-glucose meter #1 ea 04/25/24 06/29/24 Rx insulin glargine 100 unit/mL (3 15 unit (0.15 mL) subcut QPM #15 mL 04/25/24 07/08/24 Rx mL) subcutaneous pen (Lantus Solostar U-100 Insulin) metoclopramide HCl 10 mg tablet 10 mg PO Q6H PRN nausea and 05/04/24 07/08/24 Rx (Reglan) vomiting #60 tabs lancets 28 gauge (Acti-Estuardo #100 ea 05/23/24 06/29/24 Rx Lancets) levofloxacin 750 mg tablet 750 mg PO DAILY #30 tabs 05/23/24 07/08/24 Rx magnesium oxide 400 mg PO BID #60 tabs 05/23/24 07/08/24 Rx metformin 500 mg tablet,extended 500 mg PO BID #90 tabs 05/23/24 07/08/24 Rx release 24 hr pen needle, diabetic 31 gauge x #100 ea 05/23/24 06/29/24 Rx 3/16 (Comfort EZ Pen [place]) potassium chloride 20 mEq 20 meq PO DAILY #30 tabs 05/25/24 07/08/24 Rx tablet,extended release(part/cryst) pantoprazole 40 mg tablet,delayed 40 mg PO QHS #90 tabs 05/26/24 07/08/24 Rx release blood sugar diagnostic (Blood #50 ea 07/04/24 Rx Glucose Test strips) ondansetron 4 mg disintegrating 4 mg PO Q8H PRN nausea and 07/05/24 07/08/24 Rx tablet vomiting #30 tabs Patient hx anesthesia problems: none Family hx anesthesia problems: none Results Review: All pre-operative results and documents have been reviewed as part of the pre-operative evaluation. [facility] Past Medical History Medical History Colon cancer screening Migraines Diabetes History of shingles History of chicken pox Surgical History Surgical History History of incision and drainage 04/18/24 Complex incision and drainage of diabetic left foot abscess. Dr. Dominique H/O oral surgery Social History Social History Smoking status: Never smoker Tobacco type: cigarettes Second hand tobacco smoke exposure: No Alcohol intake: never Alcohol use details: Allergy to beer Substance use: never Substance use type: does not use Do You Feel Safe in your Home?: Yes Lack of Transportation: YES Lack of Food: Never True Current Housing: I Have Housing Concerned About Future Housing: No Difficulty Paying Gas/Electric Bills: No Difficulty Paying for Meds: No Currently Unemployed: No Education: High School Diploma/GED Difficulty w/ Childcare or Family Care: No Spiritual care concerns: No Anes - Eval Final PreProcedure Day of Procedure 07/08/24 09:12 Patient weight: overweight Heart: regular rate and rhythm Lungs: clear to auscultation Airway: Mallampati scale class II Neurological: alert and oriented Last oral intake: >/= 8 hours ASA classification: III Emergent: no Anesthetic plan: proceed Anesthesia type and monitoring: general GIVS and standard monitoring Results Review: All pre-operative results and documents have been reviewed as part of the pre-operative evaluation. SHANKAR fsbs 94. Informed Consent: The patient's anesthetic plan and its attendant risks and benefits were discussed with the patient/family/POA. Questions were solicited and answers provided to the satisfaction of the patient/family/POA.
--- NOTE | 2024-07-08 10:09 | SUR.OPER ---
EGD: end time 953, Colon start time 955
[2024-07-08 10:25] VITALS: BP 146/73; PULSE 73; RESP 19; O2SAT 100
[2024-07-08 10:35] VITALS: BP 155/82; PULSE 75; RESP 23; O2SAT 100
[2024-07-08 10:45] VITALS: BP 148/79; PULSE 72; RESP 24; O2SAT 100
== END 2024-07-08 10:50 | disposition home or self-care (01) ==
PROVIDERS: PCP Nurse Practitioner Family; Referring Provider Internal Medicine Gastroenterology; Visit Provider Internal Medicine Gastroenterology
PROC: 0DJ08ZZ Inspection of Upper Intestinal Tract, Via Natural or Artificial Opening Endoscopic (ICD-10-PCS; CPT 45378; principal; 2024-07-08 09:30)
DX: Z12.11 Encounter for screening for malignant neoplasm of colon (principal); D12.2 Benign neoplasm of ascending colon; K29.50 Unspecified chronic gastritis without bleeding; K21.9 Gastro-esophageal reflux disease without esophagitis; E11.9 Type 2 diabetes mellitus without complications; Z79.4 Long term (current) use of insulin; Z79.84 Long term (current) use of oral hypoglycemic drugs; Z98.890 Other specified postprocedural states
CPT/HCPCS: 43239; 45385; 88305; J2003; J2704; J7120

== ENCOUNTER 2024-07-18 12:08 | Outpatient (CLI) | payer BC, SELFPAY ==
[2024-07-18 12:38] LABS: Basophils Absolute Auto 0.08 K/mm3 (0.00-0.10); Basophils Percent Auto 0.9 % (0.0-1.0); Eosinophils Absolute Auto 0.73 K/mm3 (0.02-0.50); Eosinophils Percent Auto 8.3 % (1.0-6.0); Hemoglobin 12.5 g/dL (12.0-15.0); Immature Granulocyte Absolute 0.04 K/mm3 (0.00-0.00); Immature Granulocyte Percent A 0.5 % (0.0-0.0); Mean Corpuscular HGB Conc 31.3 g/dL (32-36); Mean Corpuscular Hemoglobin 26.1 pg (27.0-31.0); Mean Corpuscular Volume 83.5 fL (78.0-102.0); Mean Platelet Volume 10.1 fl (9.2-11.8); Monocytes Absolute Auto 0.56 K/mm3 (0.10-0.90); Monocytes Percent Auto 6.3 % (2.0-11.0); Neutrophils Absolute Auto 6.63 K/mm3 (1.70-7.20); Platelet Count Result 213 K/mm3 (150-420); Red Blood Count 4.79 M/mm3 (4.20-5.40); Red Cell Distribution Width 13.2 % (11.6-14.4); White Blood Count 8.8 K/mm3 (4.8-10.8)
[2024-07-18 13:02] LABS: Add Urine Microscopic? YES; Appearance Urine Clear (Clear); Bilirubin Urine Negative (Negative); Blood Urine 2+ (Negative); Color Urine Light Yellow (Yellow); Glucose Urine UA Negative (Negative); Ketones Urine Trace (Negative); Leukocyte Esterase Ur 1+ LEU/UL (Negative); Nitrate Urine Negative (Negative); Protein Urine 1+ (Negative); Specific Grav Ur 1.025 (1.010-1.020); Urobilinogen Urine 0.2 mg/dL (0.2-1.0); pH Urine 5.5 (5.0-8.0)
[2024-07-18 13:07] LABS: Creatinine Urine 137.76 mg/dL (40-278)
[2024-07-18 13:08] LABS: Alanine Aminotransferase 19 U/L (14-59); Albumin Level 4.3 g/dL (3.4-5.0); Alkaline Phosphatase 43 U/L (46-116); Anion Gap 10 mmol/L (4-12); Aspartate Amino Transferase 11 U/L (15-37); Bilirubin,Total 0.6 mg/dL (0.00-1.00); Blood Urea Nitrogen 24 mg/dL (7-18); Calcium 10.2 mg/dL (8.5-10.1); Carbon Dioxide 29 mmol/L (21-32); Chloride 99 mmol/L (98-108); Estimated Glomerular Filt Rate 55; Glucose 107 mg/dL (70-99); Magnesium 2.1 mg/dL (1.8-2.4); Osmolality Calculated 290 mOsm/kg (285-295); Potassium 5.8 mmol/L (3.5-5.1); Sodium 138 mmol/L (136-145); Total Protein 7.1 g/dL (6.4-8.2)
--- OUTSIDE RECORDS SUMMARY | 2024-07-18 13:08 | XMS_ITS | Clinical Summary ---
Author Organization [facility] Address [address] [place] [address]. [place], [place] [id number] [place] [id number] Care Team Providers Care Billing Spec Name Role Phone Chu Lorenzo MD Primary Care Provider Ray labdileep Allergies Active Allergy Reactions Criticality Noted Date Comments Amoxicillin Rash Low 04/29/2018 Brewers Yeast Anaphylaxis High 04/29/2018 Sulfa Antibiotics Rash Low 04/29/2018 Medications No known medications Active Problems Problem Noted Date Diagnosed Date Abscess of mandible 04/29/2018 Immunizations Name Administration Dates Next Due Fluarix (IIV4) 05/01/2018 Family History Medical History Relation Comments Other Brother Low Blood Pressure Mother Non Hodgkins Lymphoma Mother Other Sister Relation Status Comments Brother non hodgkins lym phoma Mother non hodgkins lym phoma Sister low blood pressu re Social History Tobacco Use Types Packs/Day Years Used Date Smoking Tobacco: Never Smokeless Tobacco: Never Alcohol Use Standard Drinks/Week Comments No 0 (1 standard drink = 0.6 oz pur e alcohol) AUDIT-C Answer Date Recorded Frequency of Alcohol Consumption Never 04/30/2018 Average Number of Drinks Not on file 018 Frequency of Binge Drinking Not on file 04/15 Comments No Sex and Gender Information Value Date Recorded Sex Assigned at Female 04/29/2018 9:29 PM ENGINEERING TECHNICIAN PARKING Legal Sex Female 5:33 PM ENGINEERING TECHNICIAN PARKING Gender Identity Female 04/29/2018 9:29 PM ENGINEERING TECHNICIAN PARKING Sexual Orientation Straight 04/29/2018 9: 29 PM ENGINEERING TECHNICIAN PARKING Last Filed Vital Signs Vital Sign Reading Time Taken Comments Blood Pressure 144/79 05/04/2018 1:50 PM ENGINEERING TECHNICIAN PARKING Pulse 69 05/04/2018 1:50 PM ENGINEERING TECHNICIAN PARKING Temperature 36.6 ??C (97.9 ??F) 05/04/2018 1:50 PM CS T Respiratory Rate 18 05/04/2018 1:50 PM ENGINEERING TECHNICIAN PARKING Oxygen Saturation 100% 05/04/2018 1:50 PM ENGINEERING TECHNICIAN PARKING Inhaled Oxygen Concentration - - Weight 86.8 kg (191 lb 5.8 oz) 05/04/2018 4:43 A M ENGINEERING TECHNICIAN PARKING Height 172.7 cm (5' 8 ) 04/29/2018 9:12 PM ENGINEERING TECHNICIAN PARKING Body Mass Index 29.1 04/29/2018 9:12 PM ENGINEERING TECHNICIAN PARKING Plan of Treatment Health Maintenance Due Date Last Done Comments Cervical Cancer Screening Pa p Smear (Age 30 to 64) Every 3 Years 1960 Colorectal Cancer Screening Colonoscopy (10 Years) 1960 Annual Physical 10/04/1963 Hepatitis C 1978 DTaP, Tdap and Td Vaccines ( 1 - Tdap) 10/04/1979 Cervical Cancer Screening Pa p with HPV Testing (Age 30 to 64) Every 5 Years 1990 Cervical Cancer Screening with HPV 1990 Mammogram Screening 2000 Zoster Vaccines (1 of 2) 2010 COVID-19 Vaccine (2023-2 5 season) 2024 Influenza Adult (#1) 2024 05/01/2018 RSV Immunization or 60+ Years (1 - 1-dose 75+ series) 10/04/2035 Meningococcal B Vaccine Aged Out No l onger eligible based on patient's age to complete this topic Meningococcal Vaccine Aged Out No beena heriberto eligible based on patient's age to complete this topic Pneumococcal Vaccine: Pediat rics (0 to 5 Years) and At-Risk Patients (6 to 64 Years) Aged Out No longer eligi ble based on patient's age to complete this topic RSV Immunizations Under 20 Months Aged Out No longer eligible based on patient's age to complete this topic [place] [address] [place] [address] Advance Directives * Full Code (Latest Code Status on File) Date Activated Date Inactivated Comments 04/29/2018 11:48 PM 05/04/2018 7:30 PM Care Teams Billing Spec Relationship Specialty Start Date End Date Chu Lorenzo MD PCP - General SURGERY 04/24/18
[2024-07-18 13:09] LABS: Bacteria Urine 1+ /hpf; Squamous Epithelial Cell Urine Few /hpf (Few)
[2024-07-18 13:13] LABS: MALB Creatinine Ratio 118.4 mg/g (0-30); Microalbumin Urine Random 163.2 mg/L
[2024-07-20 08:03] LABS: Vitamin D 25 Hydroxy 34 ng/mL (30-100)
== END 2024-07-18 12:09 | disposition home or self-care (01) ==
LOC: CHSLAB 12:12
PROVIDERS: PCP Nurse Practitioner Family; Visit Provider Nurse Practitioner Family
DX: E11.9 Type 2 diabetes mellitus without complications (principal); Z79.899 Other long term (current) drug therapy; I10 Essential (primary) hypertension; E87.6 Hypokalemia; E83.42 Hypomagnesemia; Z87.898 Personal history of other specified conditions; R35.89 Other polyuria
CPT/HCPCS: 36415; 80053; 81001; 82043; 82306; 83036; 83735; 85025; 87086

== ENCOUNTER 2024-09-05 15:53 | Outpatient (CLI) | payer BC, SELFPAY ==
[2024-09-05 16:09] LABS: Add Urine Microscopic? YES; Appearance Urine Clear (Clear); Basophils Absolute Auto 0.09 K/mm3 (0.00-0.10); Basophils Percent Auto 0.9 % (0.0-1.0); Bilirubin Urine Negative (Negative); Blood Urine 2+ (Negative); Color Urine Light Yellow (Yellow); Eosinophils Absolute Auto 0.43 K/mm3 (0.02-0.50); Eosinophils Percent Auto 4.4 % (1.0-6.0); Glucose Urine UA Negative (Negative); Hematocrit 40.8 % (35.0-49.0); Immature Granulocyte Absolute 0.04 K/mm3 (0.00-0.00); Immature Granulocyte Percent A 0.4 % (0.0-0.0); Ketones Urine Negative (Negative); Leukocyte Esterase Ur 1+ LEU/UL (Negative); Lymphocytes Absolute Auto 1.14 K/mm3 (1.10-4.50); Lymphocytes Percent Auto 11.6 % (18.0-42.0); Mean Corpuscular HGB Conc 31.9 g/dL (32-36); Mean Corpuscular Hemoglobin 26.6 pg (27.0-31.0); Mean Corpuscular Volume 83.6 fL (78.0-102.0); Mean Platelet Volume 10.2 fl (9.2-11.8); Monocytes Absolute Auto 0.52 K/mm3 (0.10-0.90); Monocytes Percent Auto 5.3 % (2.0-11.0); Neutrophils Absolute Auto 7.63 K/mm3 (1.70-7.20); Neutrophils Percent Auto 77.4 % (50.0-70.0); Nitrate Urine Negative (Negative); Platelet Count Result 186 K/mm3 (150-420); Protein Urine Negative (Negative); Red Blood Count 4.88 M/mm3 (4.20-5.40); Red Cell Distribution Width 14.3 % (11.6-14.4); Specific Grav Ur 1.025 (1.010-1.020); Urobilinogen Urine 0.2 mg/dL (0.2-1.0); White Blood Count 9.9 K/mm3 (4.8-10.8)
[2024-09-05 16:16] LABS: Bacteria Urine Trace /hpf; Squamous Epithelial Cell Urine Rare /hpf (Few)
[2024-09-05 16:41] LABS: Iron 82 ug/dL (50-170); Magnesium 1.9 mg/dL (1.8-2.4); Percent Iron Saturation 23 % (12-57); Potassium 5.4 mmol/L (3.5-5.1)
--- OUTSIDE RECORDS SUMMARY | 2024-09-05 18:14 | XMS_ITS | Clinical Summary ---
Author Organization [facility] Address [address] [place] [address] Care Team Providers Care Pneudraulic Systems Mechanic Name Role Phone Chu Lorenzo MD Primary Care Provider Unavai lable Allergies Active Allergy Reactions Criticality Noted Date [...] Sex Assigned at Female 04/29/2018 9:29 PM P[facility] NURSE Legal Sex Female 5:33 PM PEDIATRIC ACUTE [facility]ARE [facility] NURSE Gender Identity Female 04/29/2018 9:29 PM P[facility]ATRIC AC[facility]ARE UN[facility] NURSE Sexual Orientation Straight 04/29/2018 9: 29 PM PEDIATRIC ACUTE [facility]ARE UNIT NURSE Last Filed Vital Signs Vital Sign Reading Time Taken Comments Blood Pressure 144/79 05/04/2018 1:50 PM PEDIATRIC ACUTE CARE UNIT NURSE Pulse 69 05/04/2018 1:50 PM PEDIATRIC ACUTE CARE UNIT NURSE Temperature 36.6 C (97.9 F) 05/04/2018 1:50 PM PEDIATRIC ACUTE CARE UNIT NURSE Respiratory Rate 18 05/04/2018 1:50 PM PEDIATRIC ACUTE CARE UNIT NURSE Oxygen Saturation 100% 05/04/2018 1:50 PM PEDIATRIC ACUTE CARE UNIT NURSE Inhaled Oxygen Concentration - - Weight 86.8 kg (191 lb 5.8 oz) 05/04/2018 4:43 A M PEDIATRIC ACUTE CARE UNIT NURSE Height 172.7 cm (5' 8 ) 04/29/2018 9:12 PM PEDIATRIC ACUTE CARE UNIT NURSE Body Mass Index 29.1 04/29/2018 9:12 PM PEDIATRIC ACUTE CARE UNIT NURSE Plan of Treatment Health Maintenance Due Date [...] patient's age to complete this topic Insurance Advance Directives * Full Code (Latest Code Status on File) Date Activated Date Inactivated Comments 04/29/2018 11:48 PM 05/04/2018 7:30 PM Care Teams Pneudraulic Systems Mechanic Relationship Specialty Start Date End Date Chu Lorenzo MD PCP - General SURGERY 04/24/18
== END 2024-09-05 15:54 | disposition home or self-care (01) ==
LOC: CHSLAB 15:54
PROVIDERS: PCP Nurse Practitioner Family; Visit Provider Nurse Practitioner Family
DX: E83.42 Hypomagnesemia (principal); R42 Dizziness and giddiness; N95.0 Postmenopausal bleeding; E87.5 Hyperkalemia
CPT/HCPCS: 36415; 81001; 83540; 83550; 83735; 84132; 85025; 87086

== ENCOUNTER 2024-09-07 09:51 | Outpatient (CLI) | payer BC, SELFPAY ==
--- NOTE | 2024-09-07 10:01 | ECG_ITS ---
Test Date: 2024-09-07 10:13:22 Measurements Intervals [place] Rate: 71 P: 68 AK: 197 QRS: -33 QRSD: 94 T: 66 QT: 388 QTc: 423 Interpretive Statements SINUS RHYTHM LEFT AXIS DEVIATION [QRS AXIS < -30] Compared to ECG 05/05/2024 18:04:57 NO SIGNIFICANT CHANGES Electronically Signed On 09-07-2024 12:44:13 CDT by Doni Aviles M.D.
[2024-09-07 10:37] LABS: Potassium 4.4 mmol/L (3.5-5.1)
--- OUTSIDE RECORDS SUMMARY | 2024-09-07 10:57 | XMS_ITS | Clinical Summary ---
Author Organization [facility] Address [address] [place] [id number] Care Team Providers Care Skein Straightener Name Role Phone Chu Lorenzo MD Primary [...] Sex Assigned at Female 04/29/2018 9:29 PM MAINTENANCE WORKER SWIMMING POOL Legal Sex Female 5:33 PM MAINTENANCE WORKER [employer]MING [employer] Gender Identity Female 04/29/2018 9:29 PM MAINTENANCE WORKER SW[employer]MING POOL Sexual Orientation Straight 04/29/2018 9: 29 PM MAINTENANCE WORKER SWIMMING POOL Last Filed Vital Signs Vital Sign Reading Time Taken Comments Blood Pressure 144/79 05/04/2018 1:50 PM MAINTENANCE WORKER SWIMMING POOL Pulse 69 05/04/2018 1:50 PM MAINTENANCE WORKER SWIMMING POOL Temperature 36.6 C (97.9 F) 05/04/2018 1:50 PM MAINTENANCE WORKER SWIMMING POOL Respiratory Rate 18 05/04/2018 1:50 PM MAINTENANCE WORKER SWIMMING POOL Oxygen Saturation 100% 05/04/2018 1:50 PM MAINTENANCE WORKER SWIMMING POOL Inhaled Oxygen Concentration - - Weight 86.8 kg (191 lb 5.8 oz) 05/04/2018 4:43 A M MAINTENANCE WORKER SWIMMING POOL Height 172.7 cm (5' 8 ) 04/29/2018 9:12 PM MAINTENANCE WORKER SWIMMING POOL Body Mass Index 29.1 04/29/2018 9:12 PM MAINTENANCE WORKER SWIMMING POOL Plan of Treatment Health Maintenance Due Date [...] 11:48 PM 05/04/2018 7:30 PM Care Teams Skein Straightener Relationship Specialty Start Date End Date Chu Lorenzo MD PCP - General SURGERY 04/24/18
== END 2024-09-07 09:52 | disposition home or self-care (01) ==
PROVIDERS: PCP Nurse Practitioner Family; Visit Provider Nurse Practitioner Family
DX: E87.5 Hyperkalemia (principal); R94.31 Abnormal electrocardiogram [ECG] [EKG]
CPT/HCPCS: 36415; 84132; 93005

== ENCOUNTER 2024-10-24 12:08 | Outpatient (CLI) | payer BC, SELFPAY ==
--- OUTSIDE RECORDS SUMMARY | 2024-10-24 12:11 | XMS_ITS | Clinical Summary ---
Author Organization [facility] Address [address] [place] [address] Care Team Providers Care Senior Controls Analyst Name Role Phone DavidDiann spear Edison SEAFOOD AND SERVICE MEAT MANAGER-NEUROLOGICAL SURGERY TEACHER Primary Care Provid er Source Comments [facility],non-owned Affiliates and Associated Physician Practices is amultiple site organization consisting of ambulatory clinics and hospital sitesin [place], [place], [place] and [place]. This disclosure is being madepursuant to the Care Everywhere program and may not contain all information available regarding this patient. Last updated 18.[facility] Allergies Active Allergy Reactions Criticality Noted Date Comments Amoxicillin Rash Medium 04/29/2018 Erythromycin Urticaria,Rash Medium 09/16/2024 Sulfa Antibiotics Rash Medium 04/29/2018 Sulfa Drugs Urticaria High 10/21/2021 Medications * Be aware that medications may not be up to date on this document. Alwaysverify current medications with the patient. metFORMIN (Glucophage) 500 MG tablet Take 1 (one) tablet by mouth 2 times daily with morning and evening meal Active magnesium oxide (Mag-Ox) 400 MG tablet Take 1 (one) tablet by mouth once daily Active insulin glargine (Lantus/Semgle e) 100 units/mL pen Inject 15 (fifteen) Units subcutaneously at bedtime Active insulin lispro (HumaLOG;ADMel og) 100 UNIT/ML pen Inject subcutaneously as needed Sliding scale if needed > 150 Active ibuprofen (Motrin) 600 MG tablet Take 1 (one) tablet by mouth every 6 hours as needed for Pain 40 tablet 1 5 Active docusate sodium (Colace) 100 MG capsule Take 1 (one) capsule by mouth 2 times daily 60 capsule 1 5 Active Encounters Date Type Department Care Team Description 10/12/2024 Telephone [facility] - AUTOMATED CUTTING MACHINE OPERATOR [address] [place] [address] Osmar Pineda, LINDA Forms/questionnaire s 09/30/2024 Orders Only [facility] - AUTOMATED CUTTING MACHINE OPERATOR [address] [place] [address] [address] [place] [address] Antonia Rodriguez MD Endometrial cancer (HCC) 09/30/2024 Telephone [facility] - AUTOMATED CUTTING MACHINE OPERATOR [address] [place] [address] [address] [place] [address] Antonia Rodriguez MD Results 09/30/2024 Results Follow-Up [facility] - AUTOMATED CUTTING MACHINE OPERATOR [address] [place] [address] [address] [place] [address] Antonia Rodriguez MD 09/28/2024 12:10 PM CDT - 09/28/2024 11:59 PM CDT Hospital Encounter [facility] - [address] [address] Antonia Rodriguez MD Discharge Disposition: Home or Self Care 09/22/2024 Travel 09/22/2024 Orders Only [facility] - AUTOMATED CUTTING MACHINE OPERATOR [address] [place] [address] [address] [place] [address] Antonia Rodriguez MD Malignant neoplasm of cervix, unspecified site (HCC) 09/19/2024 12:15 PM CDT Anesthesia Event [facility] [address] [place] [id number] Wally Serrano MD Starrett, Cassie R, SEAFOOD AND SERVICE MEAT MANAGER-TANK CREWMEMBER 09/19/2024 12:00 PM CDT - 09/19/2024 1:08 PM CDT Surgery [facility] [address] [place] [id number] Antonia Rodriguez MD EXAM UNDER ANESTHESIA, WITH BIOPSIES 09/19/2024 10:00 AM CDT - 09/19/2024 2:55 PM CDT Hospital Encounter [facility] [address] [place] [address] Antonia Rodriguez MD Surgery General Discharge Disposition: Home or Self Care 09/16/2024 Telephone [facility] - AUTOMATED CUTTING MACHINE OPERATOR [address] [place] [address] Osmar Pineda MA Forms/questionnaire s 09/15/2024 1:30 PM CDT Office Visit [facility] - AUTOMATED CUTTING MACHINE OPERATOR [address] [place] [id number] Antonia Rodriguez MD Cervical mass (Primary Dx); Suspected cervical cancer 09/15/2024 Telephone [facility] - AUTOMATED CUTTING MACHINE OPERATOR [address] [place] [address] Antonia Rodriguez MD Med Question 09/15/2024 Travel 09/13/2024 Telephone [facility] - AUTOMATED CUTTING MACHINE OPERATOR [address] [place] [address] Antonia Rodriguez MD Establish Care from Last 3 Months Family History Medical History Relation Name Comments Lymphoma Brother Lymphoma Mother Relation Name Status Comments Brother Mother Social History Tobacco Use Types Packs/Day Years Used Date Smoking Tobacco: Never Smokeless Tobacco: Never Tobacco Cessation:Counseling Given: Not Answered Alcohol Use Standard Drinks/Week Comments Not Currently 0 (1 standard drink = 0.6 oz pur e alcohol) Comments Unknown Sex and Gender Information Value Date Recorded Sex Assigned at Not on file 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 Gender Identity Not on file Sexual Orientation Not on file Last Filed Vital Signs Vital Sign Reading Time Taken Comments Blood Pressure 197/82 09/19/2024 2:23 PM CDT Pulse 66 09/19/2024 2:23 PM CDT Temperature 35.9 C (96.6 F) 09/19/2024 1:50 PM CDT Respiratory Rate 18 09/19/2024 2:23 PM CDT Oxygen Saturation 99% 09/19/2024 2:23 PM CDT Inhaled Oxygen Concentration - - Weight 75.8 kg (167 lb) 09/19/2024 10:24 AM CDT Height 172.7 cm (5' 8 ) 09/19/2024 10:24 AM CDT Body Mass Index 25.39 09/19/2024 10:24 AM CDT Plan of Treatment Health Maintenance Due Date Last Done Comments COLOGUARD (AGES 45-75) - COLON CA SCREENING 1960 COLON MONITORING 1960 COLONOSCOPY - COLON CA SCREENING 1960 CT COLONOGRAPHY - COLON CA SCREENING 1960 Colorectal Cancer Screening 1960 FIT - COLON CA SCREENING 1960 FLEX SIG - COLON CA SCREENING 1960 LIPID TESTING 1960 MAMMOGRAM 1960 PAP SMEAR 1960 HIV SCREENING 10/04/1975 HEPATITIS C SCREENING 09/29/1978 DTAP/TDAP/TD VACCINES (1 - Tdap) 10/04/1979 PNEUMOCOCCAL VACCINE 50+ (1 of 1 - PCV) 2010 ZOSTER VACCINE (1 of 2) 2010 COVID-19 VACCINE ( - season) 2024 05/28/2023, 05/06/2022, 06/29/2021, Additional history exists DEPRESSION SCREENING 06/15/2024 SCREENING FOR DIABETES 09/20/2027 09/19/2024, 2024 Respiratory Syncytial Virus (RSV) Vaccine Pt: or over 60 yrs (1 - 1-dose 75+ series) 10/04/2035 INFLUENZA VACCINE Completed 07/20/2024, , 05/06/2022, Additional history exists HEPATITIS B VACCINE Aged Out No longe r eligible based on patient's age to complete this topic HIB VACCINE Aged Out No longer eligi ble based on patient's age to complete this topic HPV VACCINE Aged Out No longer eligi ble based on patient's age to complete this topic MENINGOCOCCAL (Group B) VACCINE SHARED DECISION-MAKING Aged Out No longer eligible based on patient's age to complete this topic MENINGOCOCCAL GROUPS A/C/Y/W VACCINE Aged Out No longer eligible based on patient's age to complete this topic Procedures Procedure Name Priority Date/Time Associated Diagnosis Comments PET CT SKULL TO MID THIGH Routine 09/28/2024 1:10 PM CDT Malignant neoplasm of cervix, unspecified site (HCC) CARDIAC RHYTHM STRIP ORDER 09/21/2024 6:51 PM CDT GLUCOSE - POINT OF CARE Routine 09/19/2024 1:14 PM CDT PATHOLOGY TISSUE EXAM (STL) Routine 09/19/2024 12:40 PM CDT Diagnosis unknown AR PELVIC EXAMINATION W ANESTH 09/19/2024 11:50 AM CDT Diagnosis unknown Special Needs NEEDS LOOP ELETRODE FOR THE BOVIE, PROBABLY THE 20mm SIZE GLUCOSE - POINT OF CARE Routine 09/19/2024 10:37 AM CDT from Last 3 Months Results * PET CT Skull To Mid Thigh (09/28/2024 1:10 PM CDT) Anatomical Region Laterality Modality Head, Lower Extremity Positron E mission Tomography (PET) 09/29/2024 10:5 7 AM CDT Impressions 09/29/2024 11:11 AM CDT IMPRESSION: 1.Marked radiotracer hyperactivity is seen in the area of the cervix or lower uterine segment measuring up to 16.54 SUV in an area measuring grossly 6 cm in diameter. Given that this abuts the sigmoid colon in the urinary bladder, the possibility of local invasion cannot be excluded. MR imaging may provide better local characterization. 2.No definite evidence of remote abnormal radiotracer hyperactivity to suggest metastatic disease. > Interpreting Provider: Salvador Stein MD on 09/29/2024 11:11 AM Narrative 09/29/2024 11:11 AM CDT PROCEDURE(s): PET CT SKULL TO MID THIGH DATE AND TIME OF EXAM(s): 09/28/2024 1:11 PM INDICATION(s): C53.9: Malignant neoplasm of cervix uteri, unspecified (HCC). Uterine/cervical cancer. COMPARISON(s): None available. BLOOD SUGAR LEVEL: 129 mg/dL ISOTOPE: 8.90 mCi F-18 FDG FINDINGS: BRAIN: There is symmetric activity noted within the brain although PET imaging in this case is suboptimal as it is performed in conjunction with whole body exam. If further evaluation is needed MRI the brain with and without IV contrast recommended. HEAD/NECK: Nonspecific uptake is seen in the nasal, oral, pharyngeal and laryngeal regions and salivary glands. No evidence of abnormal metabolic radiotracer uptake to suggest metabolically hyperactive malignancy or metastatic disease. CHEST: No evidence of abnormal metabolic radiotracer uptake to suggest metabolically hyperactive malignancy or metastatic disease. ABDOMEN/PELVIS: Physiologic uptake is seen in the liver, spleen, GI, and tracts. Marked radiotracer hyperactivity is seen in the area of the cervix or lower uterine segment measuring up to 16.54 SUV in an area measuring grossly 6 cm in diameter. Given that this abuts the sigmoid colon and the urinary bladder, the possibility of local invasion cannot be excluded. MR imaging may provide better local characterization. Diffuse relatively pronounced radiotracer activity is seen throughout the bowel loops compatible with physiologic activity. MUSCULOSKELETAL: No evidence of abnormal metabolic radiotracer uptake to suggest metabolically hyperactive malignancy or metastatic disease. Relatively pronounced symmetric radiotracer activity is seen at the bilateral acromioclavicular joints compatible fracture changes. Scattered areas of muscular activity are seen.2 Procedure Note Salvador Stein MD - 09/29/2024 PROCEDURE(s): PET CT SKULL TO MID THIGH DATE AND TIME OF EXAM(s): 09/28/2024 1:11 PM INDICATION(s): C53.9: Malignant neoplasm of cervix uteri, unspecified (HCC). Uterine/cervical cancer. COMPARISON(s): None available. BLOOD SUGAR LEVEL: 129 mg/dL ISOTOPE: 8.90 mCi F-18 FDG FINDINGS: BRAIN: There is symmetric activity noted within the brain although PET imaging in this case is suboptimal as it is performed in conjunctionwith whole body exam. If further evaluation is needed MRI the brain with and without IV contrast recommended. HEAD/NECK: Nonspecific uptake is seen in the nasal, oral, pharyngeal and laryngeal regions and salivary glands. No evidence of abnormal metabolic radiotracer uptake to suggest metabolically hyperactive malignancy or metastatic disease. CHEST: No evidence of abnormal metabolic radiotracer uptake to suggest metabolically hyperactive malignancy or metastatic disease. ABDOMEN/PELVIS: Physiologic uptake is seen in the liver, spleen, GI, andGU tracts. Marked radiotracer hyperactivity is seen in the area of thecervix or lower uterine segment measuring up to 16.54 SUV in an area measuring grossly 6 cm in diameter. Given that this abuts the sigmoid colon andthe urinary bladder, the possibility of local invasion cannot be excluded.MR imaging may provide better local characterization. Diffuse relatively pronounced radiotracer activity is seen throughout the bowel loops compatible with physiologic activity. MUSCULOSKELETAL: No evidence of abnormal metabolic radiotracer uptaketo suggest metabolically hyperactive malignancy or metastatic disease. Relatively pronounced symmetric radiotracer activity is seen at the bilateral acromioclavicular joints compatible fracture changes.Scattered areas of muscular activity are seen.2 IMPRESSION: 1.Marked radiotracer hyperactivity is seen in the area of the cervix or lower uterine segment measuring up to 16.54 SUV in an area measuring grossly 6 cm in diameter. Given that this abuts the sigmoid colon in the urinary bladder, the possibility of local invasion cannot be excluded.MR imaging may provide better local characterization. 2.No definite evidence of remote abnormal radiotracer hyperactivity to suggest metastatic disease. > Interpreting Provider: Salvador Stein MD on 09/29/2024 11:11 AM us Antonia Rodriguez MD NM ORDERABLES Final Resu lt * CARDIAC RHYTHM STRIP ORDER (09/21/2024 6:51 PM CDT) Narrative 09/21/2024 6:51 PM CDT Ordered by an unspecified provider. us Scanned Document CARDIAC SERVICES ORDERABLES Fin al Result * (ABNORMAL) GLUCOSE - POINT OF CARE (09/19/2024 1:14 PM CDT) Only the most recent of2 resultswithin the time period is included. Glucose WB/POC 132(H) 70 - 99 mg/dL 09/19/2024 1:20 PM CDT [facility] Specimen Type Cap Fingerstick 2024 1:20 PM CDT [facility] Blood BLOOD SPECIMEN / Unknown 09/19/2024 1:14 PM CDT 09/19/2024 1:20 PM CDT us Antonia Rodriguez MD LAB - POINT OF CARE ORDERA BLES Final Result [facility] [address] [place] [address] * PATHOLOGY TISSUE EXAM (STL) (09/19/2024 12:40 PM CDT) Case Report Surgical Pathology Report Case: [id number] Authorizing Provider: Antonia Rodriguez MD Collected: 09/19/2024 12:40 PM Ordering Location: [facility] Received: 09/19/2024 12:44 PM Pathologist: Francy Mock MD Specimen: Cervix Biopsy, Cervical biopsy 09/21/2024 9:07 AM CDT [facility] Final Diagnosis Uterus, cervix, biopsy (including FSA1) - 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 Operative procedure: exam under anesthesia with biopsies. 09/21/2024 9:07 AM [facility] Frozen Section The frozen section diagnosis is as rendered below. FSA1: Cervix, biopsy - High-grade squamous intraepithelial lesion and poorly differentiated carcinoma; areas with glandular features; adequate tissue for further analysis (for permanents) The specimen was received at 1243 on 09/19/24 and was reported to Dr. Rodriguez at [address] Mock. 09/21/2024 9:07 AM [facility] Gross Description The specimens and entirely patient's name and date of . Received fresh for frozen, specimen A, cervical biopsy is an aggregate pink-murillo soft tissues, 0.5-1.7 cm in greatest dimension and 3 x 2 x 0.5 cm aggregate. A portion is frozen as FSA1. Entirely submitted as follows: A1-frozen section control of FSA1, A2-remaining tissues. LJ 09/21/2024 9:07 AM T [facility] Microscopic Description Microscopic examination substantiates the above diagnosis. Permanent sections confirm the frozen section diagnosis. Histologic sections show fragments of high-grade squamous intraepithelial lesion and invasive carcinoma with both squamous and glandular features. Immunostains (controls adequate) were performed to further evaluate the tumor cells, which are diffusely reactive for p16 (both components), with wild-type pattern reactivity for p53. ER, vimentin and napsin-A are negative in the glandular cells. The morphologic and immunophenotypic features support the diagnosis. 09/21/2024 9:07 AM T [facility] Pathologist Location at [facility] 09/21/2024 9:07 AM T [facility] Disclaimer All histochemical and/or immunohistochemical results are interpreted with controls that demonstrate appropriate staining reactions before reporting results. Note on use of immunocytochemistry reagents: This test was developed and its performance characteristic determined by [facility], Department of Laboratory Medicine. It has not been cleared or approved by the U.S. Food and Drug Administration (FDA). The FDA has determined that such clearance or approval is not necessary. The test is used for clinical purpose. It should not be regarded as investigational or for research. This laboratory is certified to perform high complexity testing. The performance characteristics of the IHC/HERBERTH assays have been validated on formalin-fixed paraffin embedded tissues only. The assays have not been validated on decalcified tissues. Results should be interpreted with caution. 09/21/2024 9:07 AM CDT [facility] Embedded Images 09/21/2024 9:07 AM T [facility] Pathology/Cytolo gy CERVICAL BIOPSY SPECIMEN / Unknown 09/19/2024 12:40 PM CDT 09/19/2024 12:44 PM CDT Comment:Pre-op diagnosis: Diagnosis unknown [[id number]] Antonia Rodriguez MD LAB - PATHOLOGY/CYTOLOGY O EDDIE Final Result Performing Organization Address City/State/[facility] Co de Phone Number [facility] [address] [place] [address] from Last 3 Months Insurance ANTH Care Teams Senior Controls Analyst Relationship Specialty Start Date End Date Diann Crain, SEAFOOD AND SERVICE MEAT MANAGER-NEUROLOGICAL SURGERY TEACHER [address] [place] [address] PCP - General Nurse Practitioner Family 09/15/24
--- OUTSIDE RECORDS SUMMARY | 2024-10-24 12:11 | XMS_ITS ---
Author Organization [facility] Address [address] [place] [address] Phone Care Team Providers Care Client Delivery Manager Name Role Phone DavidbeatrisDiann APRN, ENGINE MAINTENANCE MECHANIC Primary Care Provi scot Antonia Rodriguez MD Unavailable [phone] Malvin Estrada MD Unavailable [phone] Taqueria Gresham MD Unavailable [phone] [place] Lakhani MD Unavailable [phone] Active Problems Problem Noted Date Diagnosed Date Cervical cancer, FIGO stage IB 10/10/2024 Cancer Staging:Clinical stage from 10/17/2024:FIGO Stage IIB(cT2b, cN0, cM0) - Signed by Taqueria Gresham MD on 10/21/2024 Controlled type 2 diabetes shreya sherman without complication, with long-term current use of insulin 10/10/2024 Current Treatment and Therapy Plans [facility]: CISplatin (weekly) with Concurrent Radiation - 6 Week Course - Multiple Disease Sites* Plan Start Date:10/09/2024 Plan Provider:aMlvin Estrada MD Linked Problems Cervical cancer, FIGO stage IB (HCC) Treatment Medications Current Day (Pre-C ycle / Prescriptions - Planned for 10/09/2024) Next Day (Week 1, Weeks 1-6 - Planned for 10/10/2024) CISplatin (PLATINOL) chemo infusion No medications scheduled. CISplatin (PLATINOL) 76 mg in sodium chloride 0.9 % 500 mL chemo infusion Past Treatment and Therapy Plans No past plan information found. Resolved Problems Problem Noted Date Diagnosed Date Resolved Date Vagina bleeding 10/10/2024 10/19/2024
--- OUTSIDE RECORDS SUMMARY | 2024-10-24 12:11 | XMS_ITS | Clinical Summary ---
Author Organization [facility] Address [address] [place] [address] Phone Care Team Providers Care Gag Writer Name Role Phone DavidbeatrisDiann STAMP PAD FINISHER, CLINICAL MENTAL HEALTH COUNSELOR Primary Care Provi scot Antonia Rodriguez MD Unavailable [phone] Malvin Estrada MD Unavailable [phone] Taqueria Gresham MD Unavailable [phone] Montana Lakhani MD Unavailable [phone] Allergies Active Allergy Reactions Criticality Noted Date Comments Amoxicillin Rash Low 04/29/2018 Brewers Yeast Anaphylaxis High 04/29/2018 Erythromycin Rash,Swelling 10/10/2024 Sulfa Antibiotics Rash Low 04/29/2018 Medications metFORMIN (GLUCOPHAGE-XR) 500 MG TABLET SR 24 HR Take 500 mg by mouth 2 times daily. 5 Active magnesium oxide (MAG-OX) 400 MG Tablet Take 400 mg by mouth 2 times daily. 5 Active insulin glargine-yfgn 100 UNIT/ML Solution Pen-injector 15 Units by Subcutaneous route nightly. 5 Active Insulin Lispro, 1 Unit Dial, 100 UNIT/ML Solution Pen-injector 15 Units by Subcutaneous route as needed for High Blood Sugar (No more than 30 units per day). 5 Active Active Problems Problem Noted Date Diagnosed Date Cervical cancer, FIGO stage IB 10/10/2024 Cancer Staging:Clinical stage from 10/17/2024:FIGO Stage IIB(cT2b, cN0, cM0) - Signed by Taqueria Gresham MD on 10/21/2024 Controlled type 2 diabetes m ellitus without complication, with long-term current use of insulin 10/10/2024 Resolved Problems Problem Noted Date Diagnosed Date Resolved Date Vagina bleeding 10/10/2024 10/19/2024 Encounters Date Type Department Care Team Description 10/21/[address] [facility] [address] [place] [address] Taqueria Gresham MD 10/19/2024 10:15 AM CDT Ancillary Procedure [facility] [address] [place] [address] Taqueria Gresham MD Encounter for radiotherapy (Primary Dx); Cervical cancer, FIGO stage IB (HCC); Status post MICKI-BSO Discharge Disposition: Discharged to home or Selfcare 10/17/2024 12:21 PM CDT - 10/17/2024 11:59 PM CDT Hospital Encounter [facility] MRI [address] [place] [address] Taqueria Gresham MD Discharge Disposition: Discharged to home or Selfcare 10/17/2024 Travel 10/15/2024 Travel 10/12/2024 9:30 AM CDT Initial Consult [facility] [address] [place] [address] Taqueria Gresham MD Cervical cancer, FIGO stage IB (HCC) (Primary Dx) Discharge Disposition: Discharged to home or Selfcare 10/12/2024 Travel 10/11/2024 11:31 AM CDT - 10/11/2024 11:59 PM CDT Hospital Encounter [facility] [address] [place] [address] Provider, Not On File Discharge Disposition: Discharged to home or Selfcare 10/11/2024 Travel 10/10/2024 12:40 PM CDT Lab [facility] [address] [place] [phone] Malvin Estrada MD 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 (HCC) (Primary Dx); Controlled type 2 diabetes mellitus without complication, with long-term current use of insulin Discharge Disposition: Discharged to home or Selfcare 10/10/2024 10:40 AM CDT Office Visit [facility] [address] [place] [phone] Malvin Estrada MD 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 (HCC) (Primary Dx); Controlled type 2 diabetes mellitus without complication, with long-term current use of insulin; Vagina bleeding Discharge Disposition: Discharged to home or Selfcare 10/10/2024 Travel from Last 3 Months Family History Medical History Relation Name Comments Non-Hodgkins Lymphoma Brother Teena lai with stage IV lymphoma and declined treatment and shortly afterwards. Congestive Heart Failure Father Cancer Mother Non-Hodgkins Lymphoma Mother a t 71 years of age from her lymphoma. Breast Cancer Sister 1 Autoimmune Disease Sister 2 Bladder cancer Neg Hx Cervical Cancer Neg Hx Colon Cancer Neg Hx Ovarian Cancer Neg Hx Uterine Cancer Neg Hx Relation Name Status Comments Brother Father Mother Sister 1 Alive Sister 2 Alive Social History Tobacco Use Types Packs/Day Years Used Date Smoking Tobacco: Never Smokeless Tobacco: Never Tobacco Cessation:Counseling Given: Not Answered Alcohol Use Standard Drinks/Week Comments Never 0 (1 standard drink = 0.6 oz pure alcohol) She drank 2 sips of beer when she turned 21 years of age and went into anaphylactic's shock. She is allergic to sandoval's yeast. Comments No Sex and Gender Information Value Date Recorded Sex Assigned at Not on file Legal Sex Female 1:53 PM CDT Gender Identity Not on file Sexual Orientation Not on file Last Filed Vital Signs Vital Sign Reading Time Taken Comments Blood Pressure 135/77 10/12/2024 9:28 AM CDT Pulse 74 10/12/2024 9:28 AM CDT Temperature 36.1 C (97 F) 10/12/2024 9:28 AM CDT Respiratory Rate 16 10/12/2024 9:28 AM CDT Oxygen Saturation 98% 10/12/2024 9:28 AM CDT Inhaled Oxygen Concentration - - Weight 74.5 kg (164 lb 3.2 oz) 10/12/2024 9:28 A M CDT Height 172.7 cm (5' 8 ) 10/12/2024 9:28 AM CDT Body Mass Index 24.97 10/12/2024 9:28 AM CDT Plan of Treatment Upcoming Encounters Date Type Department Care Team (Late st Contact Info) Description 10/31/2024 10:00 AM CDT Clinical Support [facility] [address] [place] [phone] Taqueria Gresham MD [address] [place] [address] Health Maintenance Due Date Last Done Comments Diabetes: Eye Exam 1960 Diabetes: Foot Exam 1960 Diabetes: Hemoglobin A1c 1960 Hepatitis C Virus (HCV) Screening 1960 Mammogram 1960 Pneumococcal Immunization (50+ years) (1 of 2 - PCV) 10/04/1979 Zoster Immunization (1 of 2) 10/04/1979 Cologuard 2010 Immunochemical Fecal Occult Blood 2010 SARS-COV-2 Immunization ( season) 2024 05/28/2023, 05/06/2022, 06/29/2021, Additional history exists Diabetes: Nephropathy Screening 10/10/2025 10/10/2024 Colonoscopy 10/12/2034 10/12/2024 Colorectal Cancer Screening 10/12/2034 10/12/2024 Respiratory Syncytial Virus (RSV) Immunization (Adult) Completed 07/26/2023 TdaP Immunization Completed 04/14/2024 Influenza Immunization Completed , 05/28/2023, 05/06/2022, Additional history exists Hepatitis B Immunization Aged Out No longer eligible based on patient's age to complete this topic Human Papillomavirus (HPV) Immunization Aged Out No longer eligible based on patient's age to complete this topic Meningococcal Immunization (ACWY) Aged Out No longer eligible based on patient's age to complete this topic Rotavirus Immunization Aged Out No lo nger eligible based on patient's age to complete this topic Procedures Procedure Name Priority Date/Time Associated Diagnosis Comments MRI PELVIS W/WO CONTRAST Routine 10/17/2024 1:27 PM CDT Cervical cancer, FIGO stage IB (HCC) HM COLONOSCOPY 10/12/2024 12:00 AM CDT PET REFERENCE IMAGES FOR IMPORT Routine 10/11/2024 11:31 AM CDT CBC WITH AUTO DIFFERENTIAL Routine 10/10/2024 12:40 PM CDT 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 (HCC) Controlled type 2 diabetes mellitus without complication, with long-term current use of insulin MAGNESIUM (MG) Routine 10/10/2024 12:40 PM CDT 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 (HCC) IRON,TRANSFERN,CALC.T IBC,%SAT Routine 10/10/2024 12:40 PM CDT 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 (HCC) Controlled type 2 diabetes mellitus without complication, with long-term current use of insulin FERRITIN Routine 10/10/2024 12:40 PM CDT 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 (HCC) Controlled type 2 diabetes mellitus without complication, with long-term current use of insulin COMPLETE BLOOD COUNT (CBC) WITH DIFF Routine 10/10/2024 12:40 PM CDT 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 (HCC) Controlled type 2 diabetes mellitus without complication, with long-term current use of insulin CMP (COMPREHENSIVE METABOLIC PANEL) Routine 10/10/2024 12:40 PM CDT 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 (HCC) Controlled type 2 diabetes mellitus without complication, with long-term current use of insulin PATHOLOGY SURGICAL 09/19/2024 12 :00 AM CDT GYNECOLOGIC ONCOLOGY SURGERY PROCEDURE 09/19/2024 12:00 AM CDT GYNECOLOGY/ONCOLOGY CONSULT 09/15/2024 12:00 AM CDT from Last 3 Months Results * MRI PELVIS W/WO CONTRAST (10/17/2024 1:27 PM CDT) Anatomical Region Laterality Modality Abdomen, Pelvis N/A Magnetic Resonan ce 10/21/2024 8:25 AM CDT Impressions 10/21/2024 8:28 AM CDT IMPRESSION: Heterogeneous cervical mass with invasion of the upper 2/3 of the vagina and probable early parametrial invasion at multiple locations as described above. Constellation of findings compatible with FIGO stage IIB cervical cancer. Recommend correlation with tissue sampling. No pathologically enlarged lymphadenopathy. Narrative 10/21/2024 8:28 AM CDT EXAM DESCRIPTION: MRI PELVIS W/WO CONTRAST REASON FOR STUDY: F/u PET 09/28/24 notes Marked radiotracer hyperactivity is seen in the area of the cervix or lower uterine segment measuring up to 16.54 SUV in an area measuring grossly 6 cm in diameter. TECHNIQUE: Multiplanar, multisequence MRI of the pelvis was performed before and after intravenous administration. CONTRAST TYPE/DOSE: 16mL of GADOBENATE DIMEGLUMINE 529 MG/ML IV SOLN injected via Intravenous COMPARISON: 09/28/2024 FINDINGS: GASTROINTESTINAL: No obstruction or significant wall thickening of the visualized bowel. BLADDER/URINARY: No significant wall thickening. REPRODUCTIVE: Heterogeneous T2 hyperintense, restricting, and hyperenhancing mass centered within the anterior aspect of the cervix and extending to invade the upper vagina measures 4.9 x 3.8 x 2.6 cm (4; 14 and 3; 21). Expansion of the lower endocervical canal and vagina with interruption of the T2 hypointense stromal ring compatible with cervical stromal invasion and probable early parametrial invasion at multiple locations. For example: T2 heterogeneous tumor signal extends beyond the cervical stroma from approximately 11 o'clock-1 o'clock along the mid aspect (4; 13). Tumor signal extends beyond the T2 hypointense stromal ring at 7-8 o'clock proximally (4; 12). Tumor signal extends beyond the T2 hypointense stromal ring along the left lateral mid portion of the mass (such as 5; 20). Adjacent desmoplastic change. Tumor signal abuts the posterior aspect of the bladder wall without invasion (such as 4; 16). No evidence of rectal, pelvic sidewall, ureter, or sacral uterine ligament invasion. Anteflexed uterus. Fluid within the lower uterine segment and endocervical canal. Endometrium measures up to approximately 5 mm. Unremarkable appearance of the bilateral ovaries. To LYMPH NODES: No pathologically enlarged lymphadenopathy. VASCULATURE: Grossly patent. PERITONEUM/RETROPERITONEUM: No significant free fluid. BONES/SOFT TISSUES: Sacral Tarlov/perineural cysts. No aggressive appearing enhancing osseous lesions. OTHER: No other significant finding. THIS IS AN ELECTRONICALLY VERIFIED FINAL REPORT 10/21/2024 8:25 AM - Electronically signed by José Antonio Lopez M.D. NS: NS Report ID: [id number] Reading Location: [id number] Procedure Note José Antonio Lopez MD - 10/21/2024 EXAM DESCRIPTION: MRI PELVIS W/WO CONTRAST REASON FOR STUDY: F/u PET 09/28/24 notes Marked radiotracer hyperactivity is seen in the area of the cervix or lower uterine segment measuring up to 16.54 SUV in an area measuring grossly 6 cm in diameter. TECHNIQUE: Multiplanar, multisequence MRI of the pelvis was performed before and after intravenous administration. CONTRAST TYPE/DOSE: 16mL of GADOBENATE DIMEGLUMINE 529 MG/ML IV SOLN injected via Intravenous COMPARISON: 09/28/2024 FINDINGS: GASTROINTESTINAL: No obstruction or significant wall thickening of the visualized bowel. BLADDER/URINARY: No significant wall thickening. REPRODUCTIVE: Heterogeneous T2 hyperintense, restricting, and hyperenhancing mass centered within the anterior aspect of the cervix and extending to invade the upper vagina measures 4.9 x 3.8 x 2.6 cm (4; 14 and 3; 21). Expansion of the lower endocervical canal and vagina with interruption of the T2 hypointense stromal ring compatible with cervical stromal invasion and probable early parametrial invasion at multiple locations. For example: T2 heterogeneous tumor signal extends beyond the cervical stroma from approximately 11 o'clock-1 o'clock along the mid aspect (4; 13). Tumor signal extends beyond the T2 hypointense stromal ring at 7-8 o'clock proximally (4; 12). Tumor signal extends beyond the T2 hypointense stromal ring along the left lateral mid portion of the mass (such as 5; 20). Adjacent desmoplastic change. Tumor signal abuts the posterior aspect of the bladder wall without invasion (such as 4; 16). No evidence of rectal, pelvic sidewall, ureter, or sacral uterine ligament invasion. Anteflexed uterus. Fluid within the lower uterine segment and endocervical canal. Endometrium measures up to approximately 5 mm. Unremarkable appearance of the bilateral ovaries. To LYMPH NODES: No pathologically enlarged lymphadenopathy. VASCULATURE: Grossly patent. PERITONEUM/RETROPERITONEUM: No significant free fluid. BONES/SOFT TISSUES: Sacral Tarlov/perineural cysts. No aggressive appearing enhancing osseous lesions. OTHER: No other significant finding. THIS IS AN ELECTRONICALLY VERIFIED FINAL REPORT 10/21/2024 8:25 AM - Electronically signed by José Antonio Lopez M.D. NS: NS Report ID: [id number] Reading Location: [id number] IMPRESSION: Heterogeneous cervical mass with invasion of the upper 2/3 of the vagina and probable early parametrial invasion at multiple locations as described above. Constellation of findings compatible with FIGO stage IIB cervical cancer. Recommend correlation with tissue sampling. No pathologically enlarged lymphadenopathy. us Taqueria Gresham MD IMG MR ORDERABLES Final Result * COLONOSCOPY (10/12/2024 12:00 AM CDT) 10/12/2024 Provider Scan PROCEDURE/MINOR SURGICAL ORDERAB LES Final Result SCAN * PET REFERENCE IMAGES FOR IMPORT (10/11/2024 11:31 AM CDT) Not On File Provider IMG NM ORDERABLES Final Res ult * IRON,TRANSFERN,CALC.TIBC,%SAT (10/10/2024 12:40 PM CDT) IRON 77 25 - 156 mcg/dL 10/10/2024 1:40 PM CDT [facility] TRANSFERRIN 285 173 - 360 mg/dL 10/10/2024 1:40 PM CDT [facility] TIBC, CALCULATED 356 265 - 497 mcg/dL 10/10/2024 1:40 PM CDT [facility] % SATURATION * 22 15 - 62 % 10/10/2024 1:40 PM CDT [facility] Blood Venipuncture / Unknown 10/10/2024 12:40 PM CDT 10/10/2024 12:48 PM CDT us Malvin Estrada MD CHEMISTRY ORDERABLES Fin al Result [facility] [address] [place] [address] * (ABNORMAL) CBC WITH AUTO DIFFERENTIAL (10/10/2024 12:40 PM CDT) WBC 8.47 4.00 - 12.00 10(3)/mcL 10/10/2024 1:21 PM CDT [facility] RBC 4.94 3.80 - 5.30 10(6)/mcL 10/10/2024 1:21 PM CDT [facility] HEMOGLOBIN (HGB) 13.6 12.0 - 15.8 g/dL 10/10/2024 1:21 PM CDT [facility] HEMATOCRIT (HCT) 42.8 36.0 - 47.0 % 10/10/2024 1:21 PM CDT [facility] MCV 86.6 82.0 - 96.0 fL 10/10/2024 1:21 PM CDT [facility] MCH 27.5 26.0 - 34.0 pg 10/10/2024 1:21 PM CDT [facility] MCHC 31.8 31.0 - 36.0 g/dL 10/10/2024 1:21 PM CDT [facility] PLATELET COUNT 193 140 - 440 10(3)/[facility] 10/10/2024 1:21 PM CDT [facility] RDW 13.4 11.8 - 15.5 % 10/10/2024 1:21 PM CDT [facility] MPV 10.8 9.7 - 12.4 fL 10/10/2024 1:21 PM CDT [facility] NEUTROPHILS 78.4(H) 47.0 - 73.0 % 10/10/2024 1:21 PM CDT [facility] LYMPHOCYTES 12.2(L) 18.0 - 42.0 % 10/10/2024 1:21 PM CDT [facility] MONOCYTES 5.3 4.0 - 12.0 % 10/10/2024 1:21 PM [facility] EOSINOPH[facility]S 2.8 0.0 - 5.0 % 10/10/2024 1:21 PM T [facility] BASOPHILS 1.3(H) 0.0 - 1.0 % 10/10/2024 1:21 PM CDT [facility] ABSOLUTE NEUTROPHILS 6.64 1.60 - 7.70 10(3)/[facility] 10/10/2024 1:21 PM [facility] ABSOLUTE LYMPHOCYTES 1.03(L) 1.30 - 3.20 10(3)/[facility] 10/10/2024 1:21 PM [facility] ABSOLUTE MONOCYTES 0.45 0.20 - 1.00 10(3)/[facility] 10/10/2024 1:21 PM CDT [facility] ABSOLUTE EOSINOPHIL 0.24 0.00 - 0.40 10(3)/[facility] 10/10/2024 1:21 PM [facility] ABSOLUTE BASOPHILS 0.11(H) 0.00 - 0.10 10(3)/[facility] 10/10/2024 1:21 PM [facility] NRBC PER 100 WBC 0 10/11/19 1:21 PM [facility] Blood Venipuncture / Unknown 10/10/2024 12:40 PM CDT 10/10/2024 12:48 PM CDT Malvin Estrada MD HEMATOLOGY ORDERABLES Fi nal Result Performing Organization Address City/[facility] Co de Phone Number [facility] [address] [place] [address] * MAGNESIUM (MG) (10/10/2024 12:40 PM CDT) MAGNESIUM 1.9 1.6 - 2.6 mg/dL 10/10/2024 1:40 PM CDT [facility] Blood Venipuncture / Unknown 10/10/2024 12:40 PM CDT 10/10/2024 12:48 PM CDT Malvin Estrada MD CHEMISTRY ORDERABLES Fin al Result Performing Organization Address [facility] Co de Phone Number [facility] [address] [place] [address] * FERRITIN (10/10/2024 12:40 PM CDT) FERRITIN 109 5 - 204 ng/mL 10/10/2024 1:56 PM CDT [facility] Blood Venipuncture / Unknown 10/10/2024 12:40 PM CDT 10/10/2024 12:48 PM CDT Malvin Estrada MD CHEMISTRY ORDERABLES Fin al Result Performing Organization Address City/[facility] Co de Phone Number [facility] [address] [place] [address] * (ABNORMAL) CMP (COMPREHENSIVE METABOLIC PANEL) (10/10/2024 12:40 PM CDT) SODIUM 138 136 - 145 mmol/L 10/10/2024 1:40 PM CDT [facility] POTASSIUM 4.6 3.5 - 5.1 mmol/L 10/10/2024 1:40 PM CDT [facility] CHLORIDE 103 98 - 107 mmol/L 10/10/2024 1:40 PM CDT [facility] CO2, VENOUS 26 22 - 30 mmol/L 10/10/2024 1:40 PM CDT [facility] ANION GAP 13.6 <18.0 mmol/L 10/10/2024 1:40 PM CDT [facility] GLUCOSE 130(H) 70 - 99 mg/dL 10/10/2024 1:40 PM CDT [facility] BUN 22(H) 10 - 20 mg/dL 10/10/2024 1:40 PM CDT [facility] CREATININE, BLOOD 0.78 0.60 - 1.00 mg/dL 10/10/2024 1:40 PM CDT [facility] BUN/CREATININE RATIO 28(H) 12 - 20 ratio 10/10/2024 1:40 PM CDT [facility] TOTAL PROTEIN 7.4 6.0 - 8.0 g/dL 10/10/2024 1:40 PM CDT [facility] ALBUMIN 4.2 3.5 - 5.0 g/dL 10/10/2024 1:40 PM CDT [facility] A/G RATIO 1.3 1.0 - 2.2 10/10/2024 1:40 PM CDT [facility] CALCIUM 9.6 8.7 - 10.5 mg/dL 10/10/2024 1:40 PM CDT [facility] T BILI 0.6 0.2 - 1.2 mg/dL 10/10/2024 1:40 PM CDT [facility] SGOT (AST) 16 <43 U/L 10/10/2024 1:40 PM CDT [facility] SGPT (ALT) 13 <56 U/L 10/10/2024 1:40 PM CDT [facility] ALKALINE PHOSPHATASE 40 40 - 150 U/L 10/10/2024 1:40 PM CDT [facility] IS THE PATIENT REQUIRED TO BE FASTING? No 10/10/2024 1:40 PM CDT [facility] GFR, ESTIMATED >60 >=60 10/10/2024 1:40 PM CDT [facility] Comment: Creatinine Clearance is the preferred criteria for selecting drug dose adjustments in renally impaired patients. The GFR is provided as additional pertinent clinical information. GFR is reported in mL/min/1.73 sq m. Calculation based on the Chronic Kidney Disease Epidemiology Collaboration (CKD- EPI) equation refit without adjustment for race. GFR, EST. >60 >=60 025 1:40 PM CDT [facility] GFR, EST. NONAFRICAN >60 >=60 10/10/2024 1:40 PM CDT [facility] Blood Venipuncture / Unknown 10/10/2024 12:40 PM CDT 10/10/2024 12:48 PM CDT Malvin Estrada MD CHEMISTRY ORDERABLES Fin al Result Performing Organization Address [facility]/ZIP Co de Phone Number [facility] [address] [place] [address] * GYNECOLOGIC ONCOLOGY SURGERY PROCEDURE (09/19/2024 12:00 AM CDT) 09/19/2024 us Provider Scan GEN ORDERS Final Result SCAN * PATHOLOGY SURGICAL (09/19/2024 12:00 AM CDT) 09/19/2024 us Provider Scan PATHOLOGY/CYTOLOGY ORDERABLES Fi nal Result Performing Organization Address City/[facility]/ZIP Co de Phone Number SCAN * GYNECOLOGY/ONCOLOGY CONSULT (09/15/2024 12:00 AM CDT) 09/15/2024 us Provider Scan GENERIC SCAN ORDERS CONSULT Teresa hopkins Result SCAN from Last 3 Months Insurance [facility] Care Teams Gag Writer Relationship Specialty Start Date End Date Diann Crain, STAMP PAD FINISHER, CLINICAL MENTAL HEALTH COUNSELOR [address] [place] [address] PCP - General Advanced Practice Nurse 10/10/24 Antonia Rodriguez MD [address] [address] Consulting Physician Gynecologic Oncology 10/11/24 Malvin Estrada MD [address] [place] [address] Consulting Physician Medical Oncology 10/11/24 Taqueria Gresham MD [address] [place] [address] Consulting Physician Radiation Oncology 10/11/24 Montana Lakhani MD [address] [place] [id number] Consulting Physician Radiation Oncology 10/12/24
--- OUTSIDE RECORDS SUMMARY | 2024-10-24 12:11 | XMS_ITS | Patient Health Record ---
Author Organization [facility] Address [address] [place], [place] [address] Care Team Providers Care Design Printing Machine Setter Name Role Phone JESUS MANUEL AHMADI Unavailable [phone] Diann Crain Unavailable Unavailable SYDNIJESUS MANUEL TARIQ Unavailable [phone] Allergies Allergen (clinical drug ingredient) Drug/Non Drug Allergy documented on EMR Reaction Allergy Type Onset Date Status amoxicillin Amoxicillin Rash Drug Allergy 04/29/2018 Ac tive erythromycin Erythromycin Unknown Drug Allergy A ctive Penicillin Unknown Drug Allergy Active Substance with sulfonamide structure and antibacterial mechanism of action (substance) Sulfa Antibiotics Unknown Drug Allergy Active Reason For Referral No Information Medications Medication SIG (Take, Route, Frequency, Duration) Notes Start Date End Date Status Metoclopramide HCl 5 MG/ML 1 mL before m eals Injection Twice a day Active Magnesium 300 MG 1 capsule with a marciano l Orally Once a day Active Metformin ER & Diagnostic Test Active Pantoprazole Sodium 20 MG 1 tablet 1/2 t o 1 hour before morning meal Orally Once a day Active OneTouch Verio - TWICE A DAY In Vitro for 25 Days Active FreeStyle Kim 3 Sensor - for 14 Days Active Docusate Sodium 100 MG TAKE 1 CAPSULE BY MOUTH TWICE A DAY Oral for 30 Days Active Ibuprofen 600 MG TAKE 1 TABLET BY NEHEMIAH TH EVERY 6 HOURS NEEDED FOR PAIN Oral for 10 Days Active Insulin Glargine-yfgn 100 UNIT/ML 15 UNIT (0.15 ML) SUBCUTANEOUSLY EVERY EVENING Subcutaneous for 90 Days Active metFORMIN HCl ER 500 MG 500 MG ORALLY TW ICE A DAY Oral for 45 Days Active Social History Tobacco Use: Social History Observation Description Date Details (start date - stop date) Never Smoker NA - NA Sex Assigned At : Social History Observation Description Sex Assigned At Female Tobacco Control (Standard) Question Answer Notes Tobacco use: Nonsmoker Vital Signs Height-cm 172.72 cm 10/06/2024 Weight-kg 72.58 kg 10/06/2024 Height 68 in 10/06/2024 Weight 160 lbs 10/06/2024 BMI 24.33 kg/m2 10/06/2024 Encounters Encounter Location Date Provider Diagnosis [address] [id number] 08/04/2024 JESUS MANUEL AHMADI Tinea unguium B35.1 ; Pain in right toe(s) M79.674 ; Pain in left toe(s) M79.675 ; Atherosclerosis of platinum arteries of extremities with intermittent claudication, bilateral legs I70.213 and Type 2 diabetes mellitus with other circulatory complications E11.59 [facility] [address] [id number] 10/06/2024 JESUS MANUEL MCDONOUGH Atherosclerosis of platinum arteries of extremities with intermittent claudication, bilateral legs I70.213 ; Onychomycosis B35.1 ; Pain in right toe(s) M79.674 and Pain in left toe(s) M79.675 Assessments Encounter Date Diagnosis (ICD Code) Assessment Notes Treatment Notes Treatment Clinical Notes Section Notes 08/04/2024 Tinea unguium (ICD-10 - B35.1) NAIL DEBRIDEMENT: Nails 1-5 Bilateral were debrided extensively with nail nippers and emery board, reducing length and girth to pink healthy tissue with any subungual debris and necrotic tissue removed 10/06/2024 Atherosclerosis of platinum arteries of extremities with intermittent claudication, bilateral legs (ICD-10 - I70.213) 10/06/2024 Onychomycosis (ICD-10 - B35.1) Nails 1-5 Bilateral were debrided extensively with nail nippers and emery board, reducing length and girth to pink healthy tissue with any subungual debris and necrotic tissue removed 10/06/2024 Pain in right toe(s) (ICD-10 - M79.674) 08/04/2024 Pain in right toe(s) (ICD-10 - M79.674) 08/04/2024 Pain in left toe(s) (ICD-10 - M79.675) 10/06/2024 Pain in left toe(s) (ICD-10 - M79.675) 08/04/2024 Atherosclerosis of platinum arteries of extremities with intermittent claudication, bilateral [...] the Amputation Prevention Guide. Plan Of Treatment Next Appt Details Provider Name:JESUS MANUEL TARIQ, 12/08/2024 09:50:00 AM, [address], [facility], [place], [place], [id number], Insurance Providers Payer Name Payer Address Payer Phone Subscriber Number Group Number Insured Name Patient Relationship to Insured Coverage Start Date Coverage End Date [facility] ([facility]) ATTN CLAIMS [address] [place] [address] [id number] [place] Self - patient is the insured Medical (General) History Medical History History ICD Code neuropathy Arthritis Diabetic varicose veins
--- OUTSIDE RECORDS SUMMARY | 2024-10-24 12:11 | XMS_ITS | Encounter Summary ---
Author Organization [facility] Address [address] [place] [address] Care Team Providers Care Neurology Physician Name Role Phone Diann Crain APRN-NELIDA Primary Care Provid er Encounter Details Date Type Department Care Team (Late st Contact Info) Description 09/30/2024 Results Follow-Up [facility] - OUTSIDE PARTS SALES 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
--- OUTSIDE RECORDS SUMMARY | 2024-10-24 12:11 | XMS_ITS | Clinical Summary ---
Author Organization [facility] Address [address] [place] [address] Care Team Providers Care Superintendent Colliery Name Role Phone Chu Lorenzo MD Primary Care Provider Unavai lable Allergies Active Allergy Reactions Criticality Noted Date Comments Amoxicillin Rash Low 04/29/2018 Brewers Yeast Anaphylaxis High 04/29/2018 Sulfa Antibiotics Rash Low 04/29/2018 Medications No known medications Active Problems Problem Noted Date Diagnosed Date Abscess of mandible 04/29/2018 Immunizations Immunization Administration Dates Next Due Fluarix (IIV4) 05/01/2018 [...] Sex Assigned at Female 04/29/2018 9:29 PM TECHNICAL PROFESSIONAL Legal Sex Female 5:33 PM TECHNICAL PROFESSIONAL Gender Identity Female 04/29/2018 9:29 PM TECHNICAL PROFESSIONAL Sexual Orientation Straight 04/29/2018 9: 29 PM TECHNICAL PROFESSIONAL Last Filed Vital Signs Vital Sign Reading Time Taken Comments Blood Pressure 144/79 05/04/2018 1:50 PM TECHNICAL PROFESSIONAL Pulse 69 05/04/2018 1:50 PM TECHNICAL PROFESSIONAL Temperature 36.6 C (97.9 F) 05/04/2018 1:50 PM TECHNICAL PROFESSIONAL Respiratory Rate 18 05/04/2018 1:50 PM TECHNICAL PROFESSIONAL Oxygen Saturation 100% 05/04/2018 1:50 PM TECHNICAL PROFESSIONAL Inhaled Oxygen Concentration - - Weight 86.8 kg (191 lb 5.8 oz) 05/04/2018 4:43 A M TECHNICAL PROFESSIONAL Height 172.7 cm (5' 8 ) 04/29/2018 9:12 PM TECHNICAL PROFESSIONAL Body Mass Index 29.1 04/29/2018 9:12 PM TECHNICAL PROFESSIONAL Plan of Treatment Health Maintenance Due Date [...] Screening with HPV 1990 Mammogram Screening 2000 Pneumococcal Vaccine: 50+ Ye ars (1 of 1 - PCV) 2010 Zoster Vaccines (1 of 2) 2010 COVID-19 Vaccine (2023-2 5 season) 2024 RSV Immunization or 60+ Years (1 - 1-dose 75+ series) 10/04/2035 Meningococcal B Vaccine Aged Out No l onger eligible based on patient's age to complete this topic Meningococcal Vaccine Aged Out No beena heriberto eligible based on patient's age to complete this topic RSV Immunizations Under 20 Months Aged Out No longer eligible based on patient's age to complete this topic Insurance [facility] [address] Advance Directives * Full Code (Latest Code Status on File) Date Activated Date Inactivated Comments 04/29/2018 11:48 PM 05/04/2018 7:30 PM Care Teams Superintendent Colliery Relationship Specialty Start Date End Date Chu Lorenzo MD PCP - General SURGERY 04/24/18
--- OUTSIDE RECORDS SUMMARY | 2024-10-24 12:12 | XMS_ITS ---
Author Organization [facility] Address [address] [place], [place] [address] Care Team Providers Care Software Sales Name Role Phone DAIANA JESUS MANUEL Unavailable [phone] Diann Crain Unavailable Unavailable Allergies Allergen (clinical [...] Active Metformin ER & Diagnostic Test Active Metoclopramide HCl 5 MG/ML 1 mL before m eals Injection Twice a day Active Pantoprazole Sodium 20 MG 1 tablet 1/2 t o 1 hour before morning meal Orally Once a day Active Social History Sex Assigned At : Social History Observation Description Sex Assigned At Female Encounters Encounter Location Date Provider Diagnosis [address] [id number] 08/04/2024 JESUS MANUEL AHMADI Tinea unguium B35.1 ; Pain in right toe(s) M79.674 ; Pain in left toe(s) M79.675 ; Atherosclerosis of little shell tribe arteries of extremities with intermittent claudication, bilateral [...] toe(s) (ICD-10 - M79.675) 08/04/2024 Atherosclerosis of little shell tribe arteries of extremities with intermittent claudication, bilateral [...] Foot care, sooner if problems develop. Provider Name:JESUS MANUEL TARIQ, 12/08/2024 09:50:00 AM, [address], [address], [phone], Progress Notes * Ida GRANDE RDOB: 1 (63 yo F)Acc No.[id number]:08/04/2024 Progress Notes Patient: Ida KNOWLES Provider: Oliver Ahmadi DPM :1960 A ge:63 Y S ex:Female Date:08/04/2024 Address:[address] [place], [place] [id number] Subjective: * Chief Complaints: * Aixa nick [...] Dr. Breann gama as 07/2024., I loli acosta. * ROS: G eneral / Constitutional: Patient denies c hills, fever, weight loss. ? M usculoskeletal: Patient denies w eakness, broken foot bone. ? P eripheral Vascular: Patient complains of d ecreased sensation in extremities.? S kin: Patient complains of f ungal nails, nail changes. ? N eurologic: Patient denies b alance difficulty, confusion, difficulty speaking, dizziness. * Medical History: * Surgical History: * Hospitalization/Major Diagno stic Procedure: * Medications: T akingMagnesium 300 MG Capsule [...] * Allergies: S ulfa Antibiotics: AllergyPenicillin: AllergyErythromycin: Allergyno[Allergies Verified] Objective: * Vitals: * Examination: P hysical [...] Edema: N o edema bilateral. N eurologic: [place]-We[place]in 5.07 monofilament d iminished protective sensation via [...] - M79.675 4 . A therosclerosis of little shell tribe arteries of extremities with intermittent claudication, bilateral [...] well as the Amputation Prevention Guide. * Procedure Codes: * Follow Up: 1 0 - 12 weeks (Reason: At-Risk Foot care, sooner if problems develop.) * Billing Information: * Visit Code: 18297 Office Visit, New Pt., Level 3. * Procedure Codes: * Sign off status: Completed true * Provider: Oliver Ahmadi DPM Date: 0 08/04/2024 Generated for Sara ovalle/Bowen/eTransmitting on: 0 10/24/2024 12:11 PM CDT History and Physical Notes * [...] debris. They are painful to palpation Neurologic [place]-Weinstin 5.07 monofilamen t diminished protective sensation via [...]
--- OUTSIDE RECORDS SUMMARY | 2024-10-24 12:12 | XMS_ITS ---
Author Organization [facility] Address [address] [place], [place] [address] Care Team Providers Care Residential Housekeeper Name Role Phone JESUS MANUEL AHMADI Unavailable [phone] DavidbeatrisDiann Unavailable Unavailable [facility] Unavailable [phone] Allergies Allergen (clinical drug ingredient) Drug/Non Drug Allergy documented on EMR Reaction Allergy Type Onset Date Status amoxicillin Amoxicillin Rash Drug Allergy 04/29/2018 Ac tive erythromycin Erythromycin Unknown Drug Allergy A ctive Penicillin Unknown Drug Allergy Active Substance with sulfonamide structure and antibacterial mechanism of action (substance) Sulfa Antibiotics Unknown Drug Allergy Active REASON FOR VISIT *General care Medications Medication SIG (Take, Route, Frequency, Duration) Notes Start Date End Date Status OneTouch Verio - TWICE A DAY In Vitro for 25 Days Active Docusate Sodium 100 MG TAKE [...] A DAY Oral for 45 Days Active Metoclopramide HCl 5 MG/ML 1 mL before m eals Injection Twice a day Active Magnesium 300 MG 1 capsule with a marcaino l Orally Once a day Active Metformin ER & Diagnostic Test Active Pantoprazole Sodium 20 MG 1 tablet 1/2 t o 1 hour before morning meal Orally Once a day Active FreeStyle Kim 3 Sensor - for 14 Days Active Social History Tobacco Use: Social History Observation Description Date Details (start date - stop date) Never Smoker NA - NA Sex Assigned At : Social History Observation Description Sex Assigned At Female Tobacco Control (Standard) Question Answer Notes Tobacco use: Nonsmoker Vital Signs Height 68 in 10/06/2024 Weight 160 lbs 10/06/2024 BMI 24.33 kg/m2 10/06/2024 Height-cm 172.72 cm 10/06/2024 Weight-kg 72.58 kg 10/06/2024 Encounters Encounter Location Date Provider Diagnosis [facility] [place] [address] [facility] [address] [place], [place] [id number] 10/06/2024 JESUS MANUEL ORTEGA Atherosclerosis of [place] arteries of extremities with intermittent claudication, bilateral legs I70.213 ; Onychomycosis B35.1 ; Pain in right toe(s) M79.674 and Pain in left toe(s) M79.675 Assessments Encounter Date Diagnosis (ICD Code) Assessment Notes Treatment Notes Treatment Clinical Notes Section Notes 10/06/2024 Atherosclerosis of [place] arteries of extremities with intermittent claudication, bilateral legs (ICD-10 - I70.213) 10/06/2024 Onychomycosis (ICD-10 - B35.1) Nails 1-5 Bilateral were debrided extensively with nail nippers and emery board, reducing length and girth to pink healthy tissue with any subungual debris and necrotic tissue removed 10/06/2024 Pain in right toe(s) (ICD-10 - M79.674) 10/06/2024 Pain in left toe(s) (ICD-10 - M79.675) Plan Of Treatment Treatment Notes Assessment Notes Onychomycosis Nails 1-5 Bilateral were debrided extensively with nail nippers and emery board, reducing length and girth to pink healthy tissue with any subungual debris and necrotic tissue removed Next Appt Details Follow Up: 9 weeks, Reason: Provider Name:JESUS MANUEL TARIQ, 12/08/2024 09:50:00 AM, [address], [place], [place], [phone], Progress Notes * Ida GRANDE RDOB: 1 (64 yo F)Acc No.[id number]:10/06/2024 Patient: Ida KNOWLES Provider: Oliver Ortega DPM :1960 A ge:64 Y S ex:Female Date:10/06/2024 Address:[address] [facility] [address] [facility] Subjective: * Chief Complaints: * * General care * HPI: H PI: General care P atient presents to the office for diabetic foot care. Patient states that their nails are thickened, elongated and painful. Patient states that it is aggravated by shoe gear. Onset is gradual. Patient denies taking blood thinners. Date last seen by Dr. Crain was 08/2024. Initials sea. * Medical History: * Surgical History: * Hospitalization/Major Diagno stic Procedure: * Social History: T obacco Use: T obacco Control (Standard) T obacco use: N onsmoker * Medications: T akingMagnesium 300 MG Capsule 1 capsule with a meal Orally Once a day Metoclopramide HCl 5 MG/ML Solution 1 mL before meals Injection Twice a day Pantoprazole Sodium 20 MG Tablet Delayed Release 1 tablet 1/2 to 1 hour before morning meal Orally Once a day Metformin ER & Diagnostic Test FreeStyle Kim 3 Sensor - Miscellaneous OneTouch Verio - Strip TWICE A DAY In Vitro Ibuprofen 600 MG Tablet TAKE 1 TABLET BY MOUTH EVERY 6 HOURS NEEDED FOR PAIN Oral Docusate Sodium 100 MG Capsule TAKE 1 CAPSULE BY MOUTH TWICE A DAY Oral metFORMIN HCl ER 500 MG Tablet Extended Release 24 Hour 500 MG ORALLY TWICE A DAY Oral Insulin Glargine-yfgn 100 UNIT/ML Solution Pen- injector 15 UNIT (0.15 ML) SUBCUTANEOUSLY EVERY EVENING Subcutaneous Medication List reviewed and reconciled with the patientTaking Magnesium 300 MG Capsule 1 capsule with a meal Orally Once a day Taking Metoclopramide HCl 5 MG/ML Solution 1 mL before meals Injection Twice a day Taking Pantoprazole Sodium 20 MG Tablet Delayed Release 1 tablet 1/2 to 1 hour before morning meal Orally Once a day Taking Metformin ER & Diagnostic Test Taking FreeStyle Kim 3 Sensor - Miscellaneous Taking OneTouch Verio - Strip TWICE A DAY In Vitro Taking Ibuprofen 600 MG Tablet TAKE 1 TABLET BY MOUTH EVERY 6 HOURS NEEDED FOR PAIN Oral Taking Docusate Sodium 100 MG Capsule TAKE 1 CAPSULE BY MOUTH TWICE A DAY Oral Taking metFORMIN HCl ER 500 MG Tablet Extended Release 24 Hour 500 MG ORALLY TWICE A DAY Oral Taking Insulin Glargine-yfgn 100 UNIT/ML Solution Pen-injector 15 UNIT (0.15 ML) SUBCUTANEOUSLY EVERY EVENING Subcutaneous Medication List reviewed and reconciled with the patient * Allergies: S ulfa Antibiotics: AllergyPenicillin: AllergyErythromycin: AllergyAmoxicillin: Rash - Criticality Unknown - Onset Date 04/29/2018no[Allergies Verified] Objective: * Vitals: S hoe Size: 8.5, Wt:160lbs, Wt-k.58 kg, Ht: 68 in, Ht-cm: 172.72 cm, BMI:24.33Index, Body Surface Area: 1.86. * Examination: C onstitutional: Constitutional T he patient is awake, alert, well developed, well groomed and well nourished. . D ermatologic: Skin findings: S kin is thin, atrophic and lacking pedal hair. . Nail pathology: N ails 1-5 bilateral are elongated, thick, discolored, and dystrophic with subungual debris. They are painful to palpation . Ulcer: T here is no evidence of ulceration noted at this time . Hyperkeratotic Skin Lesion T here is no evidence of hyperkeratosis . M usculoskeletal: Muscle Strength M uscle strength is 5/5 in regards to dorsiflexion, plantarflexion, inversion, and eversion in bilateral lower extremities. . Foot Structure T he foot structure is noted to be normal bilaterally . Pain on palpation T here is no pain on palpation . Gait T here is normal gait noted . N eurologic: Muscle power: 5 /5 bilaterally . Gross sensation G ross sensation is intact to light touch. . V ascular: Dorsalis pedis pulse: 0 /4 bilateral . Posterior tibial pulse: 0 /4 bilaterally . Capillary refill: g reater than 3 seconds bilaterally .? Temperature gradient: w arm to cool bilaterally . ? Assessment: * Assessment: 1. O nychomycosis - B35.1 (Primary) 2 . A therosclerosis of [place] arteries of extremities with intermittent claudication, bilateral legs - I70.213 3 . P ain in right toe(s) - M79.674 4 . P ain in left toe(s) - M79.675 Plan: * Treatment: * Procedure Codes: * Follow Up: 9 weeks * Billing Information: * Visit Code: 62827 Office Visit, Est Pt., Level 3. * Procedure Codes: * Sign off status: Completed true * Provider: Oliver Ortega DPM Date: 0 10/06/2024 Generated for Sara ovalle/Bowen/Aranza on: 0 10/24/2024 12:11 PM CDT History and Physical Notes * HPI (History of Present Illness) Category Sub-Category Detail Notes Category Not es HPI General care Patient presents to the office for diabetic foot care. Patient states that their nails are thickened, elongated and painful. Patient states that it is aggravated by shoe gear. Onset is gradual. Patient denies taking blood thinners. Date last seen by Dr. Crain was 08/2024. Initials sea Examination Category Sub-Category Detail Notes Category Not es Constitutional Constitutional The patient is a wake, alert, well developed, well groomed and well nourished. Dermatologic Skin findings: Skin is thin, at rophic and lacking pedal hair. Nail pathology: Nails 1-5 bilateral are elongated, thick, discolored, and dystrophic with subungual debris. They are painful to palpation Ulcer: There is no evidence of ulceration noted at this time Hyperkeratotic Skin Lesion There is no e vidence of hyperkeratosis Musculoskeletal Muscle Strength Muscle strength is 5/5 in regards to dorsiflexion, plantarflexion, inversion, and eversion in bilateral lower extremities. Pain on palpation There is no pain on palpation Foot Structure The foot structure i s noted to be normal bilaterally Gait There is normal gait noted Neurologic Muscle power: 5/5 bilaterally Gross sensation Gross sensation is i ntact to light touch. Vascular Dorsalis pedis pulse: 0/4 bilateral Posterior tibial pulse: 0/4 bilaterally Capillary refill: greater than 3 secon ds bilaterally Temperature gradient: warm to cool bilat erally
[2024-10-24 12:51] LABS: Hemoglobin A1C 6.6 % (<5.7)
[2024-10-24 13:24] LABS: Magnesium 1.7 mg/dL (1.6-2.3)
== END 2024-10-24 12:09 | disposition home or self-care (01) ==
LOC: CHSLAB 12:09
PROVIDERS: PCP Family Medicine; Visit Provider Nurse Practitioner Family
DX: E83.42 Hypomagnesemia (principal); E11.65 Type 2 diabetes mellitus with hyperglycemia
CPT/HCPCS: 36415; 83036; 83735

== ENCOUNTER 2024-12-19 10:27 | Emergency (ER) | payer BC, SELFPAY ==
[2024-12-19] VITALS (18 sets, daily range): BP systolic 137–191; BP diastolic 75–85; PULSE 63–81; RESP 12–25; TEMP 36.4–36.7; O2SAT 97–100
--- NOTE | 2024-12-19 | CONSULT_PTH ---
PATIENT: Ida Grande LOC: [facility] U#:[id number] AGE/SX: 64/F ROOM: RE12/19/[address]: Shawn Gary MD : 1960 BED: DIS: 12/19/2024 SPEC #: [id number] RECD: 12/19/24 12:37 STATUS: LIVIER REQ #: [id number] JULIA: 12/19/24 00:[address]: Shawn Gary DEPT: [facility] Consult RECD BY: Melissa Feng MLT, ([facility]) ENTERED: 12/19/24 12:38 SP TYPE: Consult OTHR DR: Diann Crain NP Tissues: A - Peripheral Smear Procedures: Hematology Consult
--- NOTE | ~2024-12-19 | XR_ITS ---
EXAM/PROCEDURE: XR chest 1V portable - 12/19/2024 11:00 CDT HISTORY: 64 years old Female with weakness, current chemo/RT treatments for cervical cancer TECHNIQUE: Two view(s) of the chest. COMPARISON: None available. FINDINGS: LUNGS/ PLEURA: No focal consolidation. No appreciable pneumothorax or large pleural effusion. HEART/ MEDIASTINUM: Heart appears normal in size. BONES: No acute osseous abnormality. OTHER: Visualized upper abdomen is unremarkable. IMPRESSION: No acute process. Reviewed, dictated and finalized at location A. IMPRESSION: No acute process.
--- NOTE | 2024-12-19 10:44 | ECG_ITS ---
Test Date: 2024-12-19 11:13:06 Measurements Intervals [place] Rate: 75 P: 24 [place]: 191 QRS: 9 QRSD: 90 T: 18 QT: 414 QTc: 465 Interpretive Statements SINUS RHYTHM PROBABLE INFERIOR MYOCARDIAL INFARCTION , PROBABLY OLD [35 ms Q WAVE IN II/aVF] Compared to ECG 09/07/2024 10:13:22 Myocardial infarct finding now present Left-axis deviation no longer present Electronically Signed On 12-19-2024 22:17:03 CDT by George Guerrero M.D.
--- OUTSIDE RECORDS SUMMARY | 2024-12-19 10:46 | XMS_ITS ---
Author Organization [facility] Address [address] [place] [address] Phone Care Team Providers Care Methods Study Analyst Name Role Phone Diann Crain SCRAPPER, CANAL EQUIPMENT MAINTENANCE SUPERVISOR Primary Care Provi scot Antonia Rodriguez MD Unavailable [phone] Malvin Estrada MD Unavailable [phone] Taqueria Gresham MD Unavailable [phone] Montana Lakhani MD Unavailable [phone] Active Problems Problem Noted Date Diagnosed Date Dysuria 12/12/2024 Chemotherapy-induced nausea 12/12/2024 History of therapeutic radiation 12/11/2024 Overview (12/11/2024): External beam cervix and pelvic lymph node radiotherapy 45 Thompson in 25 fractions from 10/31/2024 thru 12/05/2024. History of cancer chemotherapy 12/11/2024 Overview (12/11/2024): Weekly cisplatin concurrent with external beam cervix and pelvic lymph node radiotherapy with cycle 1 10/31/2024, cycle 2 11/08/2024, cycle 3 11/15/2024, and cycle 4 11/21/2024, and cycle 5 11/28/2024. 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 The PET/CT study raise the question of possible bladder and sigmoid colon involvement prompting a MRI pelvis. On the basis of MRI pelvis with and without contrast 10/17/2024 her stage was changed from IB3 to IIB although for treatment purposes she was felt to essentially have IB3 disease. On EUA there was no suggestion of proximal vaginal or parametrial involvement. On the MRI there was suggestion of early parametrial involvement and several millimeter involvement of the proximal vagina all of which would be included in the treatment volume for cervical FIGO stage IB3 cervical cancer. There was no evidence of bladder or sigmoid colon involvement on the MRI. She was prescribed a definitive course of external beam radiotherapy with concurrent weekly cisplatin to be followed by a HDR brachytherapy cervical boost. She received external beam cervix and pelvic lymph node radiotherapy 45 Thompson in 25 fractions from 10/31/2024 thru 12/05/2024. Concurrent with her external beam radiotherapy she received weekly cisplatin with cycle 1 10/31/2024, cycle 2 11/08/2024, cycle 3 11/15/2024, and cycle 4 11/21/2024, and cycle 5 11/28/2024. Controlled type 2 diabetes m ellitus without complication, with long-term current use of insulin 10/10/2024 Current Treatment and Therapy Plans [facility]: CISplatin (weekly) with Concurrent Radiation - 6 Week Course - Multiple Disease Sites* Plan Start Date:10/09/2024 Plan Provider:Malvin Estrada MD Linked Problems Cervical cancer, FIGO stage IIB (HCC) Treatment Medications CISplatin (PLATINOL) chemo infusion Past Treatment and Therapy Plans No past plan information found. Current Radiation Episodes * IMRT: Bilateral Cervix, Bilateral PelvisOverview* First Treatment Date Latest Treatment Date Treatment Site Technique Goal Episode Provider 10/31/2024 12/05/2024 Bilateral CervixBilateral Pelvis IMRT Curative * Linked Problems Cervical cancer, FIGO stage IIB (HCC) Treatment Courses* Course C1 10/31/2024 - 12/05/2024 Treatment Period Fraction Dose Fractions Total Dose Plans Planned [id number] 10/31/2024 - 12/05/2024 180 cGy 25 / 25 4,500 cGy Reference Points Delivered Pelvis_PRP 10/31/2024 - 12/05/2024 4,500 cGy Lifetime Dose Tracking * Chemical Lifetime Dose Automatic Entry Manual Entr y Cisplatin 227.052 mg/m2 (437 mg) 227.052 mg/m2 (437 mg) 0 mg/m2 (0 mg) Resolved Problems Problem Noted Date Diagnosed Date Resolved Date Malignant neoplasm of overla pping sites of cervix 11/08/2024 11/21/2024 Vagina bleeding 10/10/2024 10/19/2024
--- OUTSIDE RECORDS SUMMARY | 2024-12-19 10:47 | XMS_ITS | Clinical Summary ---
Author Organization [facility] Address [address] [place] [address] Care Team Providers Care Termite Treater Helper Name Role Phone Diann Crain Edison MEDICAL INTERPRETER-HEATING EQUIPMENT INSTALLER Primary Care Provid er Source Comments [facility],non-owned Affiliates and Associated Physician Practices is amultiple site organization consisting of ambulatory clinics and hospital sitesin [place], [place], [place] and [place]. This disclosure is being madepursuant to the Care Everywhere program and may not contain all information available regarding this patient. Last updated 18.[facility] Allergies Active Allergy Reactions Criticality Noted Date Comments Amoxicillin Rash Medium 04/29/2018 Erythromycin Urticaria,Rash Medium 09/16/2024 Penicillins Angioedema High 11/16/2024 Sulfa Antibiotics Rash Medium 04/29/2018 Sulfa Drugs [...] as needed for Pain 40 tablet 1 Active docusate sodium (Colace) 100 MG capsule Take 1 (one) capsule by mouth 2 times daily 60 capsule 1 Active gabapentin (Neurontin) 300 MG capsule Take 1 (one) capsule by mouth at bedtime Active OLANZapine (ZyPREXA) 5 MG tablet Take 1 (one) tablet by mouth once daily Takes 1 tab in the evening every day for 4 days after each weekly chemo. Active ondansetron (Zofran) 4 MG tablet Take 2 (two) tablets by mouth every 8 hours as needed for Nausea/Vomiting Active prochlorperazi ne (Compazine) 10 MG tablet Take 1 (one) tablet by mouth every 6 hours as needed for Nausea/Vomiting Active Encounters Date Type Department Care Team Description 12/13/2024 Telephone [facility] - Rad/Onc [address] [place] [address] Argentina Rosenthal RN Appointment 12/12/2024 Travel 12/02/2024 Telephone [facility] - Rad/Onc [address] [place] [address] Argentina Rosenthal RN Appointment 11/16/2024 1:00 PM CDT - 12/18/2024 11:59 PM CDT Hospital Encounter [facility] - Radiation Oncology [address] [place] [address] Montana Lakhani MD Discharge Disposition: Home or Self Care 11/16/2024 1:00 PM CDT Office Visit [facility] - Rad/Onc [address] [place] [address] Montana Lakhani MD 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 (HCC) (Primary Dx) 11/16/2024 Travel 11/04/2024 Travel 10/26/2024 Telephone [facility] - Rad/Onc [address] [place] [address] Argentina Rosenthal RN Follow-up 10/26/2024 Orders Only [facility] - MODEL TECHNICIAN [address] [place] [address] Antonia Rodriguez MD Malignant neoplasm of cervix, unspecified site (HCC) 10/26/2024 Telephone [facility] - Rad/Onc [address] [place] [phone] Argentina Rosenthal, RN Appointment 10/12/2024 Telephone [facility] - MODEL TECHNICIAN [address] [place] [address] Osmar Pineda, MA Forms/questionnaire s 09/30/2024 Orders Only [facility] - MODEL TECHNICIAN [address] [place] [address] Antonia Rodriguez MD Endometrial cancer (HCC) 09/30/2024 Telephone [facility] - MODEL TECHNICIAN [address] [place] [address] Antonia Rodriguez MD Results 09/30/2024 Results Follow-Up [facility] - MODEL TECHNICIAN [address] [place] [address] Antonia Rodriguez MD 09/28/2024 12:10 PM CDT - 09/28/2024 11:59 PM CDT Hospital Encounter [facility] Imaging Services - PET [address] [place] [address] Antonia Rodriguez MD Discharge Disposition: Home or Self Care 09/22/2024 Travel 09/22/2024 Orders Only [facility] - MODEL TECHNICIAN [address] [place] [address] Antonia Rodriguez MD Malignant neoplasm of cervix, unspecified site (HCC) 09/19/2024 12:15 PM CDT Anesthesia Event [facility]IOPER[facility] [address] [place] [address] Wally Serrano MD Starrett, Cassie R, MEDICAL INTERPRETER-RECONCILIATION COORDINATOR 09/19/2024 12:00 PM CDT - 09/19/2024 1:08 PM CDT Surgery [facility] [address] [place] [address] Antonia Rodriguez MD EXAM UNDER ANESTHESIA, WITH BIOPSIES 09/19/2024 10:00 AM CDT - 09/19/2024 2:55 PM CDT Hospital Encounter [facility] [address] [place] [address] Antonia Rodriguez MD Surgery General Discharge Disposition: Home or Self Care from Last 3 Months Family History Medical History Relation Name Comments Lymphoma Brother Lymphoma Mother Relation Name Status Comments Brother Mother Social History Tobacco Use Types Packs/Day Years Used Date Smoking Tobacco: Never Smokeless Tobacco: Never Tobacco Cessation:Counseling Given: Not Answered Alcohol Use Standard Drinks/Week Comments Not Currently 0 (1 standard drink = 0.6 oz pur e alcohol) PHQ-2 Answer Date Recorded Patient Health Questionnaire-2 Score 0 11/16/2024 Comments Unknown Sex and Gender Information Value Date Recorded Sex Assigned at Not on file Legal Sex Female 1:25 PM HAUNTED HISTORY TOUR GUIDE Gender Identity Not on file Sexual Orientation Not on file Last Filed Vital Signs Vital Sign Reading Time Taken Comments Blood Pressure 153/80 11/16/2024 1:34 PM CDT Pulse 69 11/16/2024 1:34 PM CDT Temperature 36.2 C (97.2 F) 11/16/2024 1:34 PM CDT Respiratory Rate 16 11/16/2024 1:34 PM CDT Oxygen Saturation 99% 11/16/2024 1:34 PM CDT Inhaled Oxygen Concentration - - Weight 79 kg (174 lb 3.2 oz) 11/16/2024 1:34 PM CDT Height 172.7 cm (5' 8) 11/16/2024 1:34 PM CDT Body Mass Index 26.49 11/16/2024 1:34 PM CDT Plan of Treatment Upcoming Encounters Date Type Department Care Team (Latest Contact Info) Description 12/20/2024 7:15 AM CDT Hospital Encounter [facility] [address] [place] [address] Montana Villa MD [address] [facility] [address] [place] [address] Surgery General 12/20/2024 7:15 AM CDT - 12/20/2024 8:45 AM CDT Surgery [facility] [address] [place] [address] Montana Villa MD [address] [address] PLACEMENT OF TANDEM AND RING 12/20/2024 9:30 AM CDT Office Visit [facility] - Rad/Onc [address] [place] [phone] Montana Lakhani MD [address] [place] [address] 12/22/2024 7:15 AM CDT Hospital Encounter [facility] [address] [place] [address] [place] [address] [place] [phone] Surgery General 12/22/2024 7:15 AM CDT - 12/22/2024 8:45 AM CDT Surgery [facility] [address] [place] [address] [place] [address] [place] [phone] PLACEMENT OF TANDEM AND RING 12/22/2024 9:30 AM CDT Office Visit [facility] - Rad/Onc [address] [place] [phone] Montana Lakhani MD [address] [place] [phone] 12/27/2024 7:15 AM CDT Hospital Encounter [facility] [address] [place] [address] Montana Villa MD [address] [place] [address] Surgery General 12/27/2024 7:15 AM CDT - 12/27/2024 8:15 AM CDT Surgery [facility] [address] [place] [address] Montana Villa MD [address] [place] [address] PLACEMENT OF TANDEM AND RINGS 12/27/2024 9:30 AM CDT Office Visit [facility] - Rad/Onc [address] [place] [phone] Montana Lakhani MD [address] [place] [address] 01/03/2025 7:15 AM CDT Hospital Encounter [facility] [address] [place] [address] Saran Troy MD [address] [place] [address] Surgery General 01/03/2025 7:15 AM CDT - 01/03/2025 8:24 AM CDT Surgery [facility] [address] [place] [address] Saran Troy MD [address] [place] [address] PLACEMENT OF TANDEM AND RING 01/03/2025 9:30 AM CDT Office Visit [facility] - Rad/Onc [address] [place] [phone] Montana Lakhani MD [address] [place] [address] 01/05/2025 9:30 AM CDT Office Visit [facility] - Rad/Onc [address] [place] [address] Montana Lakhani MD [address] [place] [address] Scheduled Procedures Name Priority Associated Diagnoses Date/Ti me BRACHYTHERAPY UTERINE TANDEMS/VAGINAL OVOIDS Diagnosis unknown 12/20/2024 7:15 AM CDT BRACHYTHERAPY UTERINE TANDEMS/VAGINAL OVOIDS Diagnosis unknown 12/22/2024 7:15 AM CDT BRACHYTHERAPY UTERINE TANDEMS/VAGINAL OVOIDS Diagnosis unknown 12/27/2024 7:15 AM CDT BRACHYTHERAPY UTERINE TANDEMS/VAGINAL OVOIDS Diagnosis unknown 01/03/2025 7:15 AM CDT Health Maintenance Due Date Last Done Comments COLOGUARD (AGES 45-75) - COLON CA SCREENING 1960 COLON MONITORING 1960 COLONOSCOPY - COLON CA SCREENING 1960 CT COLONOGRAPHY - COLON CA SCREENING 1960 Colorectal Cancer Screening 1960 FIT - COLON CA SCREENING 1960 FLEX SIG - COLON CA SCREENING 1960 LIPID TESTING 1960 MAMMOGRAM 1960 HIV SCREENING 10/04/1975 HEPATITIS C SCREENING 09/29/1978 DTAP/TDAP/TD VACCINES (1 - Tdap) 10/04/1979 PAP SMEAR 1981 PNEUMOCOCCAL VACCINE 50+ (1 of 1 - PCV) 2010 ZOSTER VACCINE (1 of 2) 2010 COVID-19 VACCINE ( season) 2024 05/28/2023, 05/06/2022, 06/29/2021, Additional history exists INFLUENZA VACCINE (#1) 2025 , 05/28/2023, 05/06/2022, Additional history exists SCREENING FOR DIABETES 11/16/2027 5, 11/15/2024, 11/08/2024, Additional history exists Respiratory Syncytial Virus (RSV) Vaccine Pt: or over 60 yrs (1 - 1-dose 75+ series) 10/04/2035 DEPRESSION SCREENING Completed 11/16/2024 HEPATITIS B VACCINE Aged Out No longe [...] Routine 09/19/2024 12:40 PM CDT Diagnosis unknown OK PELVIC EXAMINATION W ANESTH 09/19/2024 11:50 AM [...] Salvador Stein MD on 09/29/2024 11:11 AM Antonia Rodriguez MD NM ORDERABLES Final Resu lt * CARDIAC RHYTHM STRIP ORDER (09/21/2024 6:51 PM CDT) Narrative 09/21/2024 6:51 PM CDT Ordered by an unspecified provider. Scanned Document CARDIAC SERVICES ORDERABLES Fin al Result * (ABNORMAL) GLUCOSE - POINT OF CARE (09/19/2024 1:14 PM CDT) Only the most recent of2 resultswithin the time period is included. Glucose WB/POC 132(H) 70 - 99 mg/dL 09/19/2024 1:20 PM CDT [facility] Specimen Type Cap Fingerstick 2024 1:20 PM CDT [facility] Blood BLOOD SPECIMEN / Unknown 09/19/2024 1:14 PM CDT 09/19/2024 1:20 PM CDT Antonia Rodriguez MD LAB - POINT OF CARE ORDERA BLES Final Result [facility] [address] [place] [address] * PATHOLOGY TISSUE EXAM (STL) (09/19/2024 12:40 PM CDT) Case Report Surgical Pathology Report Case: [id number] Authorizing Provider: Antonia Rodriguez MD Collected: 09/19/2024 12:40 PM Ordering Location: [facility] Received: 09/19/2024 12:44 PM Pathologist: Francy Mock MD Specimen: Cervix Biopsy, Cervical biopsy 09/21/2024 9:07 AM CDT [facility] Final Diagnosis Uterus, cervix, biopsy (including FSA1) - 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 Operative procedure: exam under anesthesia with biopsies. 09/21/2024 9:07 AM CDT [facility] Frozen Section The frozen section diagnosis is as rendered below. FSA1: Cervix, biopsy - High-grade squamous intraepithelial lesion and poorly differentiated carcinoma; areas with glandular features; adequate tissue for further analysis (for permanents) The specimen was received at 1243 on 09/19/24 and was reported to Dr. Rodriguez at [address] Mock. 09/21/2024 9:07 AM CDT [facility] Gross Description The specimens and entirely patient's name and date of . Received fresh for frozen, specimen A, cervical biopsy is an aggregate pink-murillo soft tissues, 0.5-1.7 cm in greatest dimension and 3 x 2 x 0.5 cm aggregate. A portion is frozen as FSA1. Entirely submitted as follows: A1-frozen section control of FSA1, A2-remaining tissues. LJ 09/21/2024 9:07 AM [facility] Microscopic Description Microscopic examination substantiates the [...] features support the diagnosis. 09/21/2024 9:07 AM [facility] Pathologist Location at [facility] 09/21/2024 9:07 AM [facility] Disclaimer All histochemical and/or immunohistochemical results are interpreted with controls that demonstrate appropriate staining reactions before reporting results. Note on use of immunocytochemistry reagents: This test was developed and its performance characteristic determined by [facility] [place] [facility], Department of Laboratory Medicine. It has not [...] be interpreted with caution. 09/21/2024 9:07 AM [facility] Embedded Images 09/21/2024 9:07 AM [facility] Pathology/Cytolo gy CERVICAL BIOPSY SPECIMEN / Unknown 09/19/2024 12:40 PM CDT 09/19/2024 12:44 PM CDT Comment:Pre-op diagnosis: Diagnosis unknown [R69] Antonia Rodriguez MD LAB - PATHOLOGY/CYTOLOGY O RDERABLES Final Result [facility] [address] [place] [address] from Last 3 Months Insurance ANTHEM Care Teams Termite Treater Helper Relationship Specialty Start Date End Date Diann Crain, MEDICAL INTERPRETER-HEATING EQUIPMENT INSTALLER [address] [place] [address] PCP - General Nurse Practitioner Family 09/15/24
--- OUTSIDE RECORDS SUMMARY | 2024-12-19 10:47 | XMS_ITS | Encounter Summary ---
Author Organization [facility] Address [address] [facility] [place] [address] Phone Care Team Providers Care Senior Web Services Developer Name Role Phone Diann Crain APRN, SODA JERKER Primary Care Provi scot Antonia Rodriguez MD Unavailable [phone] Malvin Estrada MD Unavailable [phone] Taqueria Gresham MD Unavailable [place] Lakhani MD Unavailable Encounter Details Date Type Department Care Team (Late st Contact Info) Description 12/07/2024 Documentation Only [facility] Oncology Services [address] [place] [address] [place] Social History Tobacco Use Types Packs/Day Years Used Date Smoking Tobacco: Never Smokeless Tobacco: Never Alcohol Use Standard Drinks/Week Comments Never 0 [...] on file documented as of this encounter Miscellaneous Notes * Interdisciplinary - Yanet Black RD - 12/07/2024 4:28 PM CDT 12/05/2024-DC [id number] documented in this encounter Plan of Treatment Upcoming Encounters Date Type Department Care Team (Late st Contact Info) Description 12/19/2024 11:00 AM CDT Clinical Support [facility] Oncology Services [address] [place] [address] Malvin Estrada MD [address] [place] [address] Discharge Disposition: Discharged to home or Selfcare 01/02/2025 8:15 AM CDT Office Visit [facility] Oncology Services [address] [place] [address] Malvin Estrada MD [address] [place] [address] Bryanna Smith, WEB ART DIRECTOR, SODA JERKER [address] [place] [address] Discharge Disposition: Discharged to home or Selfcare 01/02/2025 9:00 AM CDT Lab [facility] [address] [place] [address] Malvin Estrada MD [address] [place] [address] Discharge Disposition: Discharged to home or Selfcare 03/14/2025 9:30 AM CDT Office Visit [facility] Oncology Services [address] [place] [phone] Taqueria Gresham MD [address] [place] [address] Discharge Disposition: Discharged to home or Selfcare documented as of this encounter Visit Diagnoses Not on filedocumented in this encounter Care Teams Senior Web Services Developer Relationship Specialty Start Date End Date Diann Crain Ediosn, WEB ART DIRECTOR, SODA JERKER [address] [place] [address] PCP - General Advanced Practice Nurse 10/10/24 Antonia Rodriguez MD [address] [address] Consulting Physician Gynecologic Oncology 10/11/24 Malvin Estrada MD [address] [place] [address] Consulting Physician Medical Oncology 10/11/24 Taqueria Gresham MD [address] [place] [address] Consulting Physician Radiation Oncology 10/11/24 Montana Lakhani MD [address] [place] [address] Consulting Physician Radiation Oncology 10/12/24 documented as of this encounter
--- OUTSIDE RECORDS SUMMARY | 2024-12-19 10:47 | XMS_ITS | Patient Health Record ---
Author Organization [facility] Address [address] [place], [place] [id number] Care Team Providers Care Silo Operator Name Role Phone JESUS MANUEL AHMADI Unavailable [phone] Diann Crain Unavailable Unavailable SYDNICHANDNIJESUS MANUEL Unavailable [phone] Allergies Allergen (clinical drug ingredient) Drug/Non Drug [...] Verio - TWICE A DAY In Vitro ; Duration: 25 Days Active Ibuprofen 600 MG TAKE 1 TABLET BY NEHEMIAH EVERY 6 HOURS NEEDED FOR PAIN Oral; Duration: 10 Days Active Docusate Sodium 100 MG TAKE 1 CAPSULE BY MOUTH TWICE A DAY Oral; Duration: 30 Days Active metFORMIN HCl ER 500 MG 500 MG ORALLY TW ICE A DAY Oral; Duration: 45 Days Active Insulin Glargine-yfgn 100 UNIT/ML 15 UNIT (0.15 ML) SUBCUTANEOUSLY EVERY EVENING Subcutaneous; Duration: 90 Days Active Magnesium 300 MG 1 capsule with a marciano l Orally Once a day Active Metoclopramide HCl 5 MG/ML 1 mL before m eals Injection Twice a day Active Pantoprazole Sodium 20 MG 1 tablet 1/2 t o 1 hour before morning meal Orally Once a day Active Metformin ER & Diagnostic Test Active FreeStyle Kim 3 Sensor - ; Duration: 14 Days Active Social History Tobacco Use: [...] 10/06/2024 Encounters Encounter Location Date Provider Diagnosis [address] [id number] 08/04/2024 JESUS MANUEL AHMADI Tinea unguium B35.1 ; Pain in right toe(s) M79.674 ; Pain in left toe(s) M79.675 ; Atherosclerosis of [place] arteries of extremities with intermittent claudication, bilateral legs I70.213 and Type 2 diabetes mellitus with other circulatory complications E11.59 [facility] [address] [place] [id number] 10/06/2024 JESUS MANUEL MCDONOUGH Atherosclerosis of [place] arteries of extremities with intermittent claudication, bilateral [...] and necrotic tissue removed 10/06/2024 Atherosclerosis of [place] arteries of extremities with intermittent claudication, bilateral [...] toe(s) (ICD-10 - M79.675) 08/04/2024 Atherosclerosis of [place] arteries of extremities with intermittent claudication, bilateral [...] the Amputation Prevention Guide. Plan Of Treatment No Information Insurance Providers Payer Name Payer Address Payer Phone Subscriber Number Group Number Insured Name Patient Relationship to Insured Coverage Start Date Coverage End Date [facility] ([facility]) ATTN CLAIMS [address] [place] [address] [id number] [place]da [place] Self - patient is the insured Medical (General) History Medical History History ICD Code neuropathy Arthritis Diabetic varicose veins
--- OUTSIDE RECORDS SUMMARY | 2024-12-19 10:47 | XMS_ITS ---
Author Organization [facility] Address [address] [place], [place] [id number] Care Team Providers Care Range Master Name Role Phone DAIANA JESUS MANUEL Unavailable [phone] Diann Crain Unavailable Unavailable Allergies Allergen (clinical [...] Female Encounters Encounter Location Date Provider Diagnosis [address] [id number] 08/04/2024 JESUS MANUEL AHMADI Tinea unguium B35.1 ; Pain in right toe(s) M79.674 ; Pain in left toe(s) M79.675 ; Atherosclerosis of koi arteries of extremities with intermittent claudication, bilateral [...] toe(s) (ICD-10 - M79.675) 08/04/2024 Atherosclerosis of koi arteries of extremities with intermittent claudication, bilateral [...] At-Risk Foot care, sooner if problems develop. Progress Notes * Ida GRANDE RDOB: 1 (64 yo F)Acc No.[id number]:08/04/2024 Progress Notes Patient: Ida KNOWLES Kassie Provider: Oliver Ahmadi DPM :1960 A ge:63 Y S ex:Female Date:08/04/2024 Address:[address] [facility], [address] [place], [place] [id number] Subjective: * Chief Complaints: * 1 . [...] by Dr. Breann gama as 07/2024., I nitials [facility]. * ROS: G eneral / Constitutional: Patient [...] Edema: N o edema bilateral. N eurologic: [place] 5.07 monofilament d iminished protective sensation via [...] - M79.675 4 . A therosclerosis of koi arteries of extremities with intermittent claudication, bilateral [...] develop.) * Billing Information: * Visit Code: 41550 Office Visit, New Pt., Level 3. * Procedure Codes: * Electronic signature of JESUS MANUEL AHMADI DPM on 12/19/2024 at 10:47 AM CDT Sign off status: Pending * Provider: Oliver Ahmadi DPM Date: 0 08/04/2024 Generated for Sara ovalle/Bowen/Aranza on: 0 12/19/2024 10:47 AM CDT History and Physical Notes * [...] debris. They are painful to palpation Neurologic [place] 5.07 monofilamen t diminished protective sensation via [...]
--- OUTSIDE RECORDS SUMMARY | 2024-12-19 10:47 | XMS_ITS | Encounter Summary ---
Author Organization [facility] Address [address] [place] [address] Care Team Providers Care Assembler Dry Cell And Battery Name Role Phone Davidbeatris Diann Edison WOMEN'S SOCCER COACH-SUPERVISOR PARTIAL DENTURE DEPARTMENT Primary Care Provid er Encounter Details Date Type Department Care Team (Latest Contact Info) Description 11/16/2024 1:00 PM CDT - 12/18/2024 11:59 PM CDT Hospital Encounter [facility] - Radiation Oncology [address] [place] [address] Montana Lakhani MD [address] [place], [place] [phone] Discharge Disposition: Home or Self Care Social History Tobacco Use Types Packs/Day Years Used Date Smoking Tobacco: Never Smokeless Tobacco: Never Alcohol Use Standard Drinks/Week Comments Not Currently 0 (1 standard drink = 0.6 oz pur e alcohol) PHQ-2 Answer Date Recorded Patient Health Questionnaire-2 Score 0 11/16/2024 Comments Unknown Sex and Gender Information Value Date Recorded Sex Assigned at Not on file 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 Question Answer Date of Assessment Author Little interest or pleasure in doing things Not at all 11/16/2024 1:41 PM CDT Argentina Rosenthal RN Feeling down, depressed, or hopeless Not at all 11/16/2024 1:41 PM RICHELLET Argentina Rosenthal RN Patient Health Questionnaire-2 Score 0 11/16/2024 1:41 PM CDT Shelby Rosenthal RN documented as of this encounter Medications at Time of Discharge docusate sodium (Colace) 100 MG capsule Take 1 (one) capsule by mouth 2 times daily 60 capsule 1 09/19/2024 gabapentin (Neurontin) 300 MG capsule Take 1 (one) capsule by mouth at bedtime ibuprofen (Motrin) 600 MG tablet Take 1 (one) tablet by mouth every 6 hours as needed for Pain 40 tablet 1 09/19/2024 insulin glargine (Lantus/Semglee ) 100 units/mL pen Inject 15 (fifteen) Units subcutaneously at bedtime insulin lispro (HumaLOG;ADMelo g) 100 UNIT/ML pen Inject subcutaneously as needed Sliding scale if needed > 150 magnesium oxide (Mag-Ox) 400 MG tablet Take 1 (one) tablet by mouth once daily metFORMIN (Glucophage) 500 MG tablet Take 1 (one) tablet by mouth 2 times daily with morning and evening meal OLANZapine (ZyPREXA) 5 MG tablet Take 1 (one) tablet by mouth once daily Takes 1 tab in the evening every day for 4 days after each weekly chemo. ondansetron (Zofran) 4 MG tablet Take 2 (two) tablets by mouth every 8 hours as needed for Nausea/Vomiting prochlorperazin e (Compazine) 10 MG tablet Take 1 (one) tablet by mouth every 6 hours as needed for Nausea/Vomiting documented as of this encounter Plan of Treatment Upcoming Encounters Date Type Department Care Team (Latest Contact Info) Description 12/20/2024 7:15 AM CDT Hospital Encounter [facility] [address] [place] [address] Montana Villa MD [address] [facility] [address] [place] [address] Surgery General 12/20/2024 7:15 AM CDT - 12/20/2024 8:45 AM CDT Surgery [facility] [address] [place] [phone] [place] [address] [place], [place] [id number] [address] [address] PLACEMENT OF TANDEM AND RING 12/20/2024 9:30 AM CDT Office Visit [facility] - Rad/Onc [address] [place] [phone] Montana Lakhani MD [address] [place] [address] 12/22/2024 7:15 AM CDT Hospital Encounter [facility] [address] [place] [address] Lamont Cueva MD [address] [place] [address] [phone] Surgery General 12/22/2024 7:15 AM CDT - 12/22/2024 8:45 AM CDT Surgery [facility] [address] [place] [address] Lamont Cueva MD [address] [place] [address] [phone] PLACEMENT OF TANDEM AND RING 12/22/2024 9:30 AM CDT Office Visit [facility] - Rad/Onc [address] [place] [phone] Montana Lakhani MD [address] [place] [address] 12/27/2024 7:15 AM CDT Hospital Encounter [facility] [address] [place] [phone] [place] [address] [place] [address] Surgery General 12/27/2024 7:15 AM CDT - 12/27/2024 8:15 AM CDT Surgery [facility] [address] [place] [address] Montana Villa MD [address] [address] PLACEMENT OF TANDEM AND RINGS 12/27/2024 9:30 AM CDT Office Visit [facility] - Rad/Onc [address] [place] [phone] Montana Lakhani MD [address] [place] [address] 01/03/2025 7:15 AM CDT Hospital Encounter [facility] [address] [place] [phone] [place] [address] [place] [phone] Surgery General 01/03/2025 7:15 AM CDT - 01/03/2025 8:24 AM CDT Surgery [facility] [address] [place] [address] Saran Troy MD [address] [place] [address] PLACEMENT OF TANDEM AND RING 01/03/2025 9:30 AM CDT Office Visit [facility] - Rad/Onc [address] [place] [phone] Montana Lakhani MD [address] [place] [phone] 01/05/2025 9:30 AM CDT Office Visit [facility] Rad[facility]Onc [address] [place] [phone] Montana Lakhani MD [address] [place] [phone] Scheduled Procedures Name Priority Associated Diagnoses Date/Ti me BRACHYTHERAPY UTERINE TANDEMS/VAGINAL OVOIDS Diagnosis unknown 12/20/2024 7:15 AM CDT BRACHYTHERAPY UTERINE TANDEMS/VAGINAL OVOIDS Diagnosis unknown 12/22/2024 7:15 AM CDT BRACHYTHERAPY UTERINE TANDEMS/VAGINAL OVOIDS Diagnosis unknown 12/27/2024 7:15 AM CDT BRACHYTHERAPY UTERINE TANDEMS/VAGINAL OVOIDS Diagnosis unknown 01/03/2025 7:15 AM CDT documented as of this encounter Visit Diagnoses Not on filedocumented in this encounter Care Teams Assembler Dry Cell And Battery Relationship Specialty Start Date End Date Diann Crain, WOMEN'S SOCCER COACH-SUPERVISOR PARTIAL DENTURE DEPARTMENT [address] [place] [address] PCP - General Nurse Practitioner Family 09/15/24 documented as of this encounter
--- OUTSIDE RECORDS SUMMARY | 2024-12-19 10:47 | XMS_ITS | Clinical Summary ---
Author Organization [facility] Address [address] [place] [address] Phone Care Team Providers Care Grocery Caddy Name Role Phone DavidbeatrisDiann INDUSTRIAL ARTS TEACHER, CREDIT RISK REVIEW OFFICER Primary Care Provi scot Antonia Rodriguez MD Unavailable [phone] Malvin Estrada MD Unavailable [phone] Taqueria Gresham MD Unavailable [phone] Montana Lakhain MD Unavailable [phone] Allergies Active Allergy Reactions Criticality Noted Date Comments Amoxicillin Rash Low 04/29/2018 Brewers Yeast Anaphylaxis High 04/29/2018 Erythromycin Rash,Swelling 10/10/2024 Sulfa Antibiotics Rash Low 04/29/2018 Medications metFORMIN (GLUCOPHAGE-XR ) 500 MG TABLET SR 24 HR Take [...] than 30 units per day). 5 Active ondansetron (ZOFRAN-ODT) 8 MG TABLET DISPERSIBLEInd ications:Cervi dawit cancer, FIGO stage IIB (HCC) Take 1 Tablet by mouth every 8 hours as needed for Nausea - 1st line. Take one tablet every 8 hours as needed for nausea 30 Tablet 2 5 Active prochlorperazi ne (COMPAZINE) 10 MG TabletIndicati ons:Cervical cancer, FIGO stage IIB (HCC) Take 1 Tablet by mouth every 6 hours as needed for Nausea - 2nd line. Take one tablet every 6 hours as needed for nausea. 30 Tablet 2 5 Active OLANZapine (ZyPREXA) 5 MG TabletIndicati ons:Cervical cancer, FIGO stage IIB (HCC) Take 1 Tablet by mouth See Admin Instructions. Take one tablet nightly for 4 nights, starting the night prior to chemotherapy. Repeat every 7 days for 6 cycles 24 Tablet 5 Active gabapentin (NEURONTIN) 300 MG Capsule Take 1 Capsule by mouth nightly. 30 Capsule 1 5 Active levoFLOXacin (LEVAQUIN) 750 MG TabletIndicati ons:Urinary Tract Infection Take 1 Tablet by mouth daily for 5 days. Indications: Urinary Tract Infection 5 Tablet 5 12/18/19 25 Active Problems Problem Noted Date Diagnosed Date [...] cervix 11/08/2024 11/21/2024 Vagina bleeding 10/10/2024 10/19/2024 Encounters Date Type Department Care Team Description 12/12/2024 8:30 AM CDT Clinical Support [facility] Oncology Services [address] [place] [address] Bryanna Smith, INDUSTRIAL ARTS TEACHER, CREDIT RISK REVIEW OFFICER Cervical cancer, FIGO stage IB (HCC) (Primary Dx); Cervical cancer, FIGO stage IIB (HCC); Dysuria Discharge Disposition: Discharged to home or Selfcare 12/12/2024 8:15 AM CDT Office Visit [facility] Oncology Services [address] [place] [phone] Bryanna Smith APRN, CNP Cervical cancer, FIGO stage IB (HCC) (Primary Dx); History of therapeutic radiation; History of cancer chemotherapy; Dysuria; Chemotherapy induced diarrhea; Chemotherapy-induce d nausea Discharge Disposition: Discharged to home or Selfcare 12/12/2024 Travel 12/10/2024 Travel 12/07/2024 Documentation Only [facility] Oncology Services [address] [place] [phone] Yanet Black, BARI 12/05/2024 9:00 AM CDT Clinical Support [facility] Oncology Services [address] [place] [phone] Malvin Estrada MD Cervical cancer, FIGO stage IB (HCC) (Primary Dx); Cervical cancer, FIGO stage IIB (HCC) Discharge Disposition: Discharged to home or Selfcare 12/05/2024 9:00 AM CDT Office Visit [facility] Oncology Services [address] [place] [phone] Taqueria Gresham MD Butler, David Ferrell, MD Cervical cancer, FIGO stage IIB (HCC) (Primary Dx); Encounter for radiotherapy; Patient on combined chemotherapy and radiation Discharge Disposition: Discharged to home or Selfcare 12/05/2024 8:45 AM CDT Clinical Support [facility] Oncology Services [address] [place] [phone] Taqueria Gresham MD History of therapeutic radiation (Primary Dx); History of cancer chemotherapy; Cervical cancer, FIGO stage IB (HCC) Discharge Disposition: Discharged to home or Selfcare 12/05/2024 Travel 12/03/2024 Travel 12/02/2024 10:00 AM CDT Clinical Support [facility] Oncology Services [address] [place] [phone] Taqueria Gresham MD Discharge Disposition: Discharged to home or Selfcare 12/02/2024 Travel 12/01/2024 10:00 AM CDT Clinical Support [facility] Oncology Services [address] [place] [phone] Taqueria Gresham MD Discharge Disposition: Discharged to home or Selfcare 12/01/2024 Travel 11/30/2024 10:00 AM CDT Clinical Support [facility] Oncology Services [address] [place] [phone] Taqueria Gresham MD Discharge Disposition: Discharged to home or Selfcare 11/30/2024 Travel 11/29/2024 10:00 AM CDT Clinical Support [facility] Oncology Services [address] [place] [phone] Taqueria Gresham MD Discharge Disposition: Discharged to home or Selfcare 11/29/2024 Travel 11/28/2024 10:15 AM CDT Office Visit [facility] Oncology Services [address] [place] [phone] Taqueria Gresham MD Encounter for radiotherapy (Primary Dx); Patient on combined chemotherapy and radiation; Cervical cancer, FIGO stage IIB (HCC); Loose stools Discharge Disposition: Discharged to home or Selfcare 11/28/2024 10:00 AM CDT Clinical Support [facility] Oncology Services [address] [place] [phone] Taqueria Gresham MD Discharge Disposition: Discharged to home or Selfcare 11/28/2024 9:00 AM CDT Clinical Support [facility] Oncology Services [address] [place] [phone] Malvin Estrada MD Cervical cancer, FIGO stage IIB (HCC) (Primary Dx); Cervical cancer, FIGO stage IB (HCC) Discharge Disposition: Discharged to home or Selfcare 11/28/2024 Travel 11/27/2024 Travel 11/26/2024 Travel 11/25/2024 10:00 AM CDT [facility] [address] [place] [address] Taqueria Gresham MD Discharge Disposition: Discharged to home or Selfcare 11/25/2024 Travel 11/24/2024 11:00 AM CDT Clinical Support [facility] Oncology Services [address] [place] [phone] Taqueria Gresham MD Cervical cancer, FIGO stage IIB (HCC) (Primary Dx); Diarrhea, unspecified type Discharge Disposition: Discharged to home or Selfcare 11/24/2024 10:00 AM CDT [facility] [address] [place] [address] Taqueria Gresham MD Cervical cancer, FIGO stage IIB (HCC) Discharge Disposition: Discharged to home or Selfcare 11/24/2024 Travel 11/23/2024 10:00 AM CDT [facility] [address] [place] [phone] Malvin Estrada MD Diarrhea, unspecified type (Primary Dx) Discharge Disposition: Discharged to home or Selfcare 11/23/2024 10:00 AM CDT Clinical Support [facility] Oncology Services [address] [place] [address] Taqueria Gresham MD Discharge Disposition: Discharged to home or Selfcare 11/23/2024 9:15 AM CDT [facility] [address] [place] [address] Malvin Estrada MD Baxley, Brandy M, APRN, CREDIT RISK REVIEW OFFICER Cervical cancer, FIGO stage IIB (HCC) (Primary Dx); Neuralgic pain; Diarrhea, unspecified type Discharge Disposition: Discharged to home or Selfcare 11/23/2024 Travel 11/22/2024 10:00 AM CDT [facility] [address] [place] [phone] Taqueria Gresham MD Discharge Disposition: Discharged to home or Selfcare 11/22/2024 Travel 11/21/2024 10:15 AM CDT Office Visit [facility] Oncology Services [address] [place] [phone] Taqueria Gresham MD Encounter for radiotherapy (Primary Dx); Patient on combined chemotherapy and radiation; Cervical cancer, FIGO stage IIB (HCC); Loose stools Discharge Disposition: Discharged to home or Selfcare 11/21/2024 10:00 AM CDT Clinical Support [facility] Oncology Services [address] [place] [phone] Taqueria Gresham MD Discharge Disposition: Discharged to home or Selfcare 11/21/2024 9:00 AM CDT Clinical Support [facility] Oncology Services [address] [place] [phone] Malvin Estrada MD Cervical cancer, FIGO stage IIB (HCC) (Primary Dx) Discharge Disposition: Discharged to home or Selfcare 11/21/2024 Travel 11/19/2024 Travel 11/18/2024 10:00 AM CDT Clinical Support [facility] Oncology Services [address] [place] [phone] Taqueria Gresham MD Discharge Disposition: Discharged to home or Selfcare 11/18/2024 Travel 11/17/2024 10:00 AM CDT Clinical Support [facility] Oncology Services [address] [place] [phone] Taqueria Gresham MD Discharge Disposition: Discharged to home or Selfcare 11/17/2024 Travel 11/16/2024 10:00 AM CDT Clinical Support [facility] Oncology Services [address] [place] [phone] Taqueria Gresham MD Discharge Disposition: Discharged to home or Selfcare 11/16/2024 Travel 11/15/2024 10:00 AM CDT Clinical Support [facility] Oncology Services [address] [place] [phone] Taqueria Gresham MD Discharge Disposition: Discharged to home or Selfcare 11/15/2024 9:00 AM CDT Clinical Support [facility] Oncology Services [address] [place] [phone] Malvin Estrada MD Cervical cancer, FIGO stage IB (HCC) (Primary Dx); Cervical cancer, FIGO stage IIB (HCC) Discharge Disposition: Discharged to home or Selfcare 11/15/2024 Travel 11/14/2024 10:15 AM CDT Office Visit [facility] Oncology Services [address] [place] [phone] Taqueria Gresham MD Encounter for radiotherapy (Primary Dx); Patient on combined chemotherapy and radiation; Cervical cancer, FIGO stage IIB (HCC) Discharge Disposition: Discharged to home or Selfcare 11/14/2024 10:00 AM CDT Clinical Support [facility] Oncology Services [address] [place] [phone] Taqueria Gresham MD Discharge Disposition: Discharged to home or Selfcare 11/14/2024 Travel 11/13/2024 Travel 11/12/2024 Travel 11/11/2024 10:00 AM CDT Clinical Support [facility] Oncology Services [address] [place] [phone] Taqueria Gresham MD Discharge Disposition: Discharged to home or Selfcare 11/11/2024 Travel 11/10/2024 10:00 AM CDT Clinical Support [facility] Oncology Services [address] [place] [phone] Taqueria Gresham MD Discharge Disposition: Discharged to home or Selfcare 11/10/2024 Travel 11/09/2024 10:00 AM CDT Clinical Support [facility] Oncology Services [address] [place] [phone] Taqueria Gresham MD Discharge Disposition: Discharged to home or Selfcare 11/09/2024 Travel 11/08/2024 10:15 AM CDT Office Visit [facility] Oncology Services [address] [place] [phone] Taqueria Gresham MD Encounter for radiotherapy (Primary Dx); Patient on combined chemotherapy and radiation; Cervical cancer, FIGO stage IIB (HCC); Vagina bleeding Discharge Disposition: Discharged to home or Selfcare 11/08/2024 10:00 AM CDT Clinical Support [facility] Oncology Services [address] [place] [phone] Taqueria Gresham MD Discharge Disposition: Discharged to home or Selfcare 11/08/2024 9:40 AM CDT Office Visit [facility] Oncology Services [address] [place] [phone] Malvin Estrada MD 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 (HCC) (Primary Dx); Controlled type 2 diabetes mellitus without complication, with long-term current use of insulin; Chemotherapy induced diarrhea; Cervical cancer, FIGO stage IIB (HCC); Neuralgic pain Discharge Disposition: Discharged to home or Selfcare 11/08/2024 9:00 AM CDT [facility] [address] [place] [address] Malvin Estrada MD Cervical cancer, FIGO stage IIB (HCC) (Primary Dx) Discharge Disposition: Discharged to home or Selfcare 11/08/2024 Travel 11/07/2024 Travel 11/06/2024 Travel 11/04/2024 10:00 AM CDT [facility] [address] [place] [phone] Taqueria Gresham MD Discharge Disposition: Discharged to home or Selfcare 11/04/2024 Travel 11/03/2024 10:00 AM CDT Clinical Support [facility] Oncology Services [address] [place] [phone] Taqueria Gresham MD Discharge Disposition: Discharged to home or Selfcare 11/03/2024 Travel 11/02/2024 10:00 AM CDT Clinical Support [facility] Oncology Services [address] [place] [phone] Taqueria Gresham MD Discharge Disposition: Discharged to home or Selfcare 11/02/2024 Documentation Only [facility] [address] [place] [phone] Taqueria Gresham MD 11/02/2024 Travel 11/01/2024 10:00 AM CDT Clinical Support [facility] Oncology Services [address] [place] [address] Taqueria Gresham MD Discharge Disposition: Discharged to home or Selfcare 11/01/2024 Travel 10/31/2024 10:30 AM CDT [facility] [address] [place] [phone] PieTaqueria fuller MD Butler, David Ferrell, MD Cervical cancer, FIGO stage IB (HCC) (Primary Dx); 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 (HCC) Discharge Disposition: Discharged to home or Selfcare 10/31/2024 10:30 AM CDT Clinical Support [facility] Oncology Services [address] [place] [address] Malvin Estrada MD Cervical cancer, FIGO stage IIB (HCC) (Primary Dx) Discharge Disposition: Discharged to home or Selfcare 10/31/2024 10:00 AM CDT Clinical Support [facility] Oncology Services [address] [place] [address] Taqueria Gresham MD Butler, David Ferrell, MD Cervical cancer, FIGO stage IB (HCC) (Primary Dx); 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 (HCC) Discharge Disposition: Discharged to home or Selfcare 10/31/2024 8:15 AM CDT Office Visit [facility] Oncology Services [address] [place] [address] Bryanna Smith APRN, CNP Cervical cancer, FIGO stage IIB (HCC) (Primary Dx) Discharge Disposition: Discharged to home or Selfcare 10/31/2024 Travel 10/30/2024 Travel 10/29/2024 Travel 10/28/2024 Non-Scheduled Office Visit [facility] Oncology Services [address] [place] [phone] Taqueria Gresham MD Cervical cancer, FIGO stage IIB (HCC) (Primary Dx) 10/24/2024 Telephone [facility] Oncology Services [address] [place] [phone] Malvin Estrada MD 10/21/2024 Documentation Only [facility] Oncology Services [address] [place] [phone] Taqueria Gresham MD 10/19/2024 10:15 AM CDT Ancillary Procedure [facility] [address] [place] [address] Taqueria Gresham MD Encounter for radiotherapy (Primary Dx); Cervical cancer, FIGO stage IB (HCC); Status post MICKI-BSO Discharge Disposition: Discharged to home or Selfcare 10/17/2024 12:21 PM CDT - 10/17/2024 11:59 PM CDT Hospital Encounter [facility] MRI [address] [place] [address] Taqueria Gresham MD Discharge Disposition: Discharged to home or Selfcare 10/17/2024 Travel 10/15/2024 Travel 10/12/2024 9:30 AM CDT Initial Consult [facility] Oncology Services [address] [place] [address] Taqueria Gresham MD Cervical cancer, FIGO stage IB (HCC) (Primary Dx) Discharge Disposition: Discharged to home or Selfcare 10/12/2024 Travel 10/11/2024 11:31 AM CDT - 10/11/2024 11:59 PM CDT Hospital Encounter [facility] [address] [place] [address] Provider, Not On File Discharge Disposition: Discharged to home or Selfcare 10/11/2024 Travel 10/10/2024 12:40 PM CDT Lab [facility] [address] [place] [address] Malvin Estrada MD 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 (HCC) (Primary Dx); Controlled type 2 diabetes mellitus without complication, with long-term current use of insulin Discharge Disposition: Discharged to home or Selfcare 10/10/2024 10:40 AM CDT Office Visit [facility] Oncology Services [address] [place] [address] Malvin Estrada MD Malignant neoplasm of overlapping [...] Sign Reading Time Taken Comments Blood Pressure 166/82 12/12/2024 8:09 AM CDT Pulse 80 12/12/2024 8:09 AM CDT Temperature 36.8 C (98.2 F) 12/12/2024 8:09 AM CDT Respiratory Rate 18 12/12/2024 8:09 AM CDT Oxygen Saturation 99% 12/12/2024 8:09 AM CDT Inhaled Oxygen Concentration - - Weight 74.6 kg (164 lb 8 oz) 12/12/2024 8:09 AM CDT Height 172.7 cm (5' 8) 12/12/2024 8:09 AM CDT Body Mass Index 25.01 12/12/2024 8:09 AM CDT Plan of Treatment Upcoming Encounters Date Type Department Care Team (Late st Contact Info) Description 12/19/2024 11:00 AM CDT Clinical Support [facility] Oncology Services [address] [place] [address] Malvin Estrada MD [address] [place] [address] Discharge Disposition: Discharged to home or Selfcare 01/02/2025 8:15 AM CDT [facility] [address] [place] [address] Malvin Estrada MD [address] [place] [address] Bryanna Smith, INDUSTRIAL ARTS TEACHER, CREDIT RISK REVIEW OFFICER [address] [place] [address] Discharge Disposition: Discharged to home or Selfcare 01/02/2025 9:00 AM CDT Lab [facility] [address] [place] [address] Malvin Estrada MD [address] [place] [address] Discharge Disposition: Discharged to home or Selfcare 03/14/2025 9:30 AM CDT Office Visit [facility] Oncology Services [address] [place] [phone] Taqueria Gresham MD [address] [place] [address] Discharge Disposition: Discharged to home or Selfcare Health Maintenance Due Date Last Done Comments Diabetes: Eye Exam 1960 Diabetes: Foot Exam 1960 Diabetes: Hemoglobin A1c 1960 Hepatitis C Virus (HCV) Screening 1960 Mammogram 1960 Pneumococcal Immunization (50+ years) (1 of 2 - PCV) 10/04/1979 Zoster Immunization (1 of 2) 10/04/1979 Cologuard 2005 Immunochemical Fecal Occult Blood 2005 SARS-COV-2 Immunization ( season) 2024 05/28/2023, 05/06/2022, 06/29/2021, Additional history exists Influenza Immunization (#1) 2025 02/0 10/2024, 05/28/2023, 05/06/2022, Additional history exists Diabetes: Nephropathy Screening 12/12/2025 12/12/2024, 12/05/2024, 11/28/2024, Additional history exists Colonoscopy 10/12/2034 10/12/2024 Colorectal Cancer Screening 10/12/2034 Respiratory Syncytial Virus (RSV) Immunization (Adult) Completed 07/26/2023 TdaP Immunization Completed 04/14/2024 Hepatitis B Immunization Aged Out No longer [...] Procedure Name Priority Date/Time Associated Diagnosis Comments URINALYSIS REFLEX IF INDICATED BY ABNORMAL RESULTS Routine 12/12/2024 9:43 AM CDT Dysuria CULTURE, URINE Routine 12/12/2024 9:43 AM CDT Dysuria CBC WITH AUTO DIFFERENTIAL STAT 12/12/2024 8:36 AM CDT Cervical cancer, FIGO stage IIB (HCC) MAGNESIUM (MG) Routine 12/12/2024 8:36 AM CDT Cervical cancer, FIGO stage IB (HCC) COMPLETE BLOOD COUNT (CBC) WITH DIFF STAT 12/12/2024 8:36 AM CDT Cervical cancer, FIGO stage IIB (HCC) CMP (COMPREHENSIVE METABOLIC PANEL) STAT 12/12/2024 8:36 AM CDT Cervical cancer, FIGO stage IIB (HCC) RAD ONC ARIA COURSE SUMMARY Routine 12/07/2024 10:18 AM CDT CBC WITH AUTO DIFFERENTIAL STAT 12/05/2024 9:16 AM CDT Cervical cancer, FIGO stage IIB (HCC) MAGNESIUM (MG) Routine 12/05/2024 9:16 AM CDT Cervical cancer, FIGO stage IB (HCC) COMPLETE BLOOD COUNT (CBC) WITH DIFF STAT 12/05/2024 9:16 AM CDT Cervical cancer, FIGO stage IIB (HCC) CMP (COMPREHENSIVE METABOLIC PANEL) STAT 12/05/2024 9:16 AM CDT Cervical cancer, FIGO stage IIB (HCC) RAD ONC ARIA SESSION SUMMARY Routine 12/05/2024 9:05 AM CDT RAD ONC ARIA SESSION SUMMARY Routine 12/02/2024 10:16 AM CDT RAD ONC ARIA SESSION SUMMARY Routine 12/01/2024 10:29 AM CDT RAD ONC ARIA SESSION SUMMARY Routine 11/30/2024 10:19 AM CDT RAD ONC ARIA SESSION SUMMARY Routine 11/29/2024 10:46 AM CDT RAD ONC ARIA SESSION SUMMARY Routine 11/28/2024 10:00 AM CDT CBC WITH AUTO DIFFERENTIAL STAT 11/28/2024 9:21 AM CDT Cervical cancer, FIGO stage IIB (HCC) MAGNESIUM (MG) Routine 11/28/2024 9:21 AM CDT Cervical cancer, FIGO stage IB (HCC) COMPLETE BLOOD COUNT (CBC) WITH DIFF STAT 11/28/2024 9:21 AM CDT Cervical cancer, FIGO stage IIB (HCC) CMP (COMPREHENSIVE METABOLIC PANEL) STAT 11/28/2024 9:21 AM CDT Cervical cancer, FIGO stage IIB (HCC) RAD ONC ARIA SESSION SUMMARY Routine 11/25/2024 10:26 AM CDT C. DIFF BY PCR Routine 11/25/2024 10:11 AM CDT Diarrhea, unspecified type C. DIFFICILE BY PCR Routine 11/25/2024 1 0:11 AM CDT Diarrhea, unspecified type CMP (COMPREHENSIVE METABOLIC PANEL) STAT 11/24/2024 11:21 AM CDT Cervical cancer, FIGO stage IIB (HCC) CBC WITH AUTO DIFFERENTIAL STAT 11/24/2024 11:20 AM CDT Cervical cancer, FIGO stage IIB (HCC) COMPLETE BLOOD COUNT (CBC) WITH DIFF STAT 11/24/2024 11:20 AM CDT Cervical cancer, FIGO stage IIB (HCC) RAD ONC ARIA SESSION SUMMARY Routine 11/24/2024 10:48 AM CDT RAD ONC ARIA SESSION SUMMARY Routine 11/23/2024 10:10 AM CDT RAD ONC ARIA SESSION SUMMARY Routine 11/22/2024 10:11 AM CDT RAD ONC ARIA SESSION SUMMARY Routine 11/21/2024 9:33 AM CDT CBC WITH AUTO DIFFERENTIAL STAT 11/21/2024 9:16 AM CDT Cervical cancer, FIGO stage IIB (HCC) MAGNESIUM (MG) STAT 11/21/2024 9:16 AM CDT Cervical cancer, FIGO stage IIB (HCC) CMP (COMPREHENSIVE METABOLIC PANEL) STAT 11/21/2024 9:16 AM CDT Cervical cancer, FIGO stage IIB (HCC) COMPLETE BLOOD COUNT (CBC) WITH DIFF STAT 11/21/2024 9:16 AM CDT Cervical cancer, FIGO stage IIB (HCC) RAD ONC ARIA SESSION SUMMARY Routine 11/18/2024 10:08 AM CDT RAD ONC ARIA SESSION SUMMARY Routine 11/17/2024 10:18 AM CDT RAD ONC ARIA SESSION SUMMARY Routine 11/16/2024 10:14 AM CDT RAD ONC ARIA SESSION SUMMARY Routine 11/15/2024 9:15 AM CDT CBC WITH AUTO DIFFERENTIAL STAT 11/15/2024 9:04 AM CDT Cervical cancer, FIGO stage IIB (HCC) MAGNESIUM (MG) Routine 11/15/2024 9:04 AM CDT Cervical cancer, FIGO stage IB (HCC) COMPLETE BLOOD COUNT (CBC) WITH DIFF STAT 11/15/2024 9:04 AM CDT Cervical cancer, FIGO stage IIB (HCC) CMP (COMPREHENSIVE METABOLIC PANEL) STAT 11/15/2024 9:04 AM CDT Cervical cancer, FIGO stage IIB (HCC) RAD ONC ARIA SESSION SUMMARY Routine 11/14/2024 10:11 AM CDT RAD ONC ARIA SESSION SUMMARY Routine 11/11/2024 10:09 AM CDT RAD ONC ARIA SESSION SUMMARY Routine 11/10/2024 10:12 AM CDT RAD ONC ARIA SESSION SUMMARY Routine 11/09/2024 10:11 AM CDT RAD ONC ARIA SESSION SUMMARY Routine 11/08/2024 9:35 AM CDT CBC WITH AUTO DIFFERENTIAL STAT 11/08/2024 9:17 AM CDT Cervical cancer, FIGO stage IIB (HCC) COMPLETE BLOOD COUNT (CBC) WITH DIFF STAT 11/08/2024 9:17 AM CDT Cervical cancer, FIGO stage IIB (HCC) CMP (COMPREHENSIVE METABOLIC PANEL) STAT 11/08/2024 9:17 AM CDT Cervical cancer, FIGO stage IIB (HCC) RAD ONC ARIA SESSION SUMMARY Routine 11/04/2024 10:04 AM CDT RAD ONC ARIA SESSION SUMMARY Routine 11/03/2024 10:15 AM CDT RAD ONC ARIA SESSION SUMMARY Routine 11/02/2024 10:32 AM CDT RAD ONC ARIA SESSION SUMMARY Routine 11/01/2024 10:27 AM CDT RAD ONC ARIA SESSION SUMMARY Routine 10/31/2024 9:24 AM CDT CBC WITH AUTO DIFFERENTIAL STAT 10/31/2024 8:40 AM CDT Cervical cancer, FIGO stage IIB (HCC) COMPLETE BLOOD COUNT (CBC) WITH DIFF STAT 10/31/2024 8:40 AM CDT Cervical cancer, FIGO stage IIB (HCC) CMP (COMPREHENSIVE METABOLIC PANEL) STAT 10/31/2024 8:40 AM CDT Cervical cancer, FIGO stage IIB (HCC) MRI PELVIS W/WO CONTRAST Routine 10/17/2024 1:27 [...] ONCOLOGY SURGERY PROCEDURE 09/19/2024 12:00 AM CDT from Last 3 Months Results * (ABNORMAL) URINALYSIS REFLEX IF INDICATED BY ABNORMAL RESULTS (12/12/2024 9:43 AM CDT) Pathologist [facility] SPECIFIC GRAVITY 1.010 1.003 - 1.030 12/12/2024 10:11 AM CDT [facility] URINE PH 6.5 5.0 - 9.0 12/12/2024 10:11 AM CDT [facility] WBC ESTERASE 25 /ul(A) Negative 12/12/2024 10:11 AM CDT [facility] NITRITE Negative Negative 12/12/2024 10:11 AM CDT [facility] PROTEIN, RANDOM URINE 500 mg/dL(A) Negative 12/12/2024 10:11 AM CDT [facility] URINE GLUCOSE, QUAL Negative Negative 12/12/2024 10:11 AM CDT [facility] URINE KETONES 15 mg/dL(A) Negative 12/12/2024 10:11 AM CDT [facility] UROBILINOGEN Normal Normal mg/dL 12/12/2024 10:11 AM CDT [facility] URINE BLOOD 150 /uL(A) Negative debbie/ul 12/12/2024 10:11 AM CDT [facility] URINALYSIS COLOR Yellow 12/13/19 10:11 AM CDT [facility] URINALYSIS CLARITY Very Cloudy 12/12/2024 10:11 AM CDT [facility] WBC (Urine) 51-150(A) Negative, 0-5 /hpf 12/12/2024 10:11 AM CDT [facility] URINE RBC'S 51-150(A) Negative, 0-2 /hpf 12/12/2024 10:11 AM CDT [facility] EPITHELIAL CELLS Moderate amount /lpf 12/12/2024 10:11 AM CDT [facility] BACTERIA, URINE Few(A) Negative /hpf 12/12/2024 10:11 AM CDT [facility] Urine URINE SPECIMEN OBTAINED BY CLEAN CATCH PROCEDURE / Unknown Non-Phlebotomy Collection / Unknown 12/12/2024 9:43 AM CDT 12/12/2024 9:43 AM CDT us Bryanna Smith INDUSTRIAL ARTS TEACHER, CREDIT RISK REVIEW OFFICER URINE ORDERABLES Final Result [facility] [address] [place] [address] * CULTURE, URINE (12/12/2024 9:43 AM CDT) CULTURE RESULTS GROUP B STREPTOCOCCUS 12/14/2024 8:58 AM CDT [facility] CULTURE RESULTS Also mixed growth of distal urethral contaminants 12/14/2024 8:58 AM CDT [facility] Urine URINE SPECIMEN OBTAINED BY CLEAN CATCH PROCEDURE / Unknown Non-Phlebotomy Collection / Unknown 12/12/2024 9:43 AM CDT 12/12/2024 9:43 AM CDT Narrative Organism Antibiotic Method Susceptibility Streptococcus agalactiae Ampicillin SF VITEK IIB <=0.25 mcg/ml: Susceptible Streptococcus agalactiae Benzylpenicillin SF VITEK I IB <=0.12 mcg/ml: Susceptible Streptococcus agalactiae Levofloxacin SF VITEK IIB 1 mcg/ml: Susceptible Streptococcus agalactiae Vancomycin [facility] VITEK IIB <=0.5 mcg/ml: Susceptible us Bryanna Smith APRN, CREDIT RISK REVIEW OFFICER MICROBIOLOGY - GENERAL ORDERABLES Final Result [facility] [address] [place] [address], * (ABNORMAL) CBC WITH AUTO DIFFERENTIAL (12/12/2024 8:36 AM CDT) Only the most recent of9 resultswithin the time period is included. WBC 1.92(L) 4.00 - 12.00 10(3)/mcL 12/12/2024 9:06 AM CDT [facility] RBC 3.18(L) 3.80 - 5.30 10(6)/mcL 12/12/2024 9:06 AM CDT [facility] HEMOGLOBIN (HGB) 8.8(L) 12.0 - 15.8 g/dL 12/12/2024 9:06 AM CDT [facility] HEMATOCRIT (HCT) 26.3(L) 36.0 - 47.0 % 12/12/2024 9:06 AM CDT [facility] MCV 82.7 82.0 - 96.0 fL 12/12/2024 9:06 AM CDT [facility] MCH 27.7 26.0 - 34.0 pg 12/12/2024 9:06 AM CDT [facility] MCHC 33.5 31.0 - 36.0 g/dL 12/12/2024 9:06 AM CDT [facility] PLATELET COUNT 94(L) 140 - 440 10(3)/mcL 12/12/2024 9:06 AM CDT [facility] RDW 14.8 11.8 - 15.5 % 12/12/2024 9:06 AM CDT [facility] MPV 8.7(L) 9.7 - 12.4 fL 12/12/2024 9:06 AM CDT [facility] NEUTROPHILS 70.3 47.0 - 73.0 % 12/12/2024 9:06 AM CDT [facility] LYMPHOCYTES 5.7(L) 18.0 - 42.0 % 12/12/2024 9:06 AM CDT [facility] MONOCYTES 14.6(H) 4.0 - 12.0 % 12/12/2024 9:06 AM CDT [facility] EOSINOPHILS 7.8(H) 0.0 - 5.0 % 12/12/2024 9:06 AM CDT [facility] BASOPHILS 1.6(H) 0.0 - 1.0 % 12/12/2024 9:06 AM CDT [facility] IMMATURE GRANULOCYTE 0.0 0.0 - 0.4 % 12/12/2024 9:06 AM CDT [facility] Comment:Immature Granulocyte s includes Metamyelocytes, Myelocytes, and Promyelocytes. ABSOLUTE NEUTROPHILS 1.35(L) 1.60 - 7.70 10(3)/mcL 12/12/2024 9:06 AM CDT [facility] ABSOLUTE LYMPHOCYTES 0.11(L) 1.30 - 3.20 10(3)/mcL 12/12/2024 9:06 AM CDT [facility] ABSOLUTE MONOCYTES 0.28 0.20 - 1.00 10(3)/mcL 12/12/2024 9:06 AM CDT [facility] ABSOLUTE EOSINOPHIL 0.15 0.00 - 0.40 10(3)/mcL 12/12/2024 9:06 AM CDT [facility] ABSOLUTE BASOPHILS 0.03 0.00 - 0.10 10(3)/mcL 12/12/2024 9:06 AM CDT [facility] ABSOLUTE IMMATURE GRANULOCYTE 0.00 0.00 - 0.03 10 (3) mcL. 12/12/2024 9:06 AM CDT [facility] NRBC PER 100 WBC 0 12/13/19 9:06 AM CDT [facility] RESULTS ARE CONSISTENT WITH PERIPHERAL SMEAR REVIEW Yes 12/12/2024 9:06 AM CDT [facility] Blood Venipuncture / Unknown 12/12/2024 8:36 AM CDT 12/12/2024 8:36 AM CDT Malvin Estrada MD HEMATOLOGY ORDERABLES Fi nal Result Performing Organization Address City/[facility]/ZIP Co de Phone Number [facility] [address] [place] [address] * (ABNORMAL) MAGNESIUM (MG) (12/12/2024 8:36 AM CDT) Only the most recent of6 resultswithin the time period is included. MAGNESIUM 1.4(L) 1.6 - 2.6 mg/dL 12/12/2024 9:13 AM CDT [facility] Blood Venipuncture / Unknown 12/12/2024 8:36 AM CDT 12/12/2024 8:36 AM CDT Malvin Estrada MD CHEMISTRY ORDERABLES Fin al Result [facility] [address] [place] [address] * (ABNORMAL) CMP (COMPREHENSIVE METABOLIC PANEL) (12/12/2024 8:36 AM CDT) Only the most recent of9 resultswithin the time period is included. SODIUM 134(L) 136 - 145 mmol/L 12/12/2024 9:13 AM CDT [facility] POTASSIUM 3.9 3.5 - 5.1 mmol/L 12/12/2024 9:13 AM T [facility] CHLORIDE 100 98 - 107 mmol/L 12/12/2024 9:13 AM T [facility] CO2, VENOUS 24 22 - 30 mmol/L 12/12/2024 9:13 AM T [facility] ANION GAP 13.9 <18.0 mmol/L 12/12/2024 9:13 AM T [facility] GLUCOSE 104(H) 70 - 99 mg/dL 12/12/2024 9:[address] [facility] BUN 13 10 - 20 mg/dL 12/12/2024 9:[address] [facility] CREATININE, BLOOD 1.12(H) 0.60 - 1.00 mg/dL 12/12/2024 9:[address] [facility] BUN/CREATININE RATIO 12 12 - 20 ratio 12/12/2024 9:[address] [facility] TOTAL PROTEIN 6.3 6.0 - 8.0 g/dL 12/12/2024 9:[address] [facility] ALBUMIN 3.7 3.5 - 5.0 g/dL 12/12/2024 9:[address] [facility] A/G RATIO 1.4 1.0 - 2.2 12/12/2024 9:[address] [facility] CALCIUM 8.6(L) 8.7 - 10.5 mg/dL 12/12/2024 9:13 AM T [facility] T BILI 0.4 0.2 - 1.2 mg/dL 12/12/2024 9:13 AM T [facility] SGOT (AST) 17 <43 U/L 12/12/2024 9:13 AM CDT [facility] SGPT (ALT) <6 <56 U/L 12/12/2024 9:13 AM CDT [facility] ALKALINE PHOSPHATASE 36(L) 40 - 150 U/L 12/12/2024 9:13 AM CDT [facility] IS THE PATIENT REQUIRED TO BE FASTING? No 12/12/2024 9:13 AM CDT [facility] GFR, ESTIMATED 55(L) >=60 12/12/2024 9:13 AM CDT [facility] Comment: Creatinine Clearance is the preferred criteria for selecting drug dose adjustments in renally impaired patients. The GFR is provided as additional pertinent clinical information. GFR is reported in mL/min/1.73 sq m. Calculation based on the Chronic Kidney Disease Epidemiology Collaboration (CKD- EPI) equation refit without adjustment for race. GFR, EST. 59(L) >=60 025 9:13 AM CDT [facility] GFR, EST. NONAFRICAN 49(L) >=60 12/12/2024 9:13 AM CDT [facility] Blood Venipuncture / Unknown 12/12/2024 8:36 AM CDT 12/12/2024 8:36 AM CDT us Malvin Estrada MD CHEMISTRY ORDERABLES Fin al Result [facility] [address] [place] [address] * RAD ONC ARIA COURSE SUMMARY (12/07/2024 10:18 AM CDT) Course ID C1 ARIA RO MODEL Course Intent Curative w/chemo ARIA RO MODEL Course Start Date 10/12/2024 12:34 PM ARIA RO MODEL Course End Date 12/07/2024 10:18 AM 10/31/2024 9:25 AM ARIA RO MODEL Course Last Treatment Date 12/05/2024 9:04 AM ARIA RO MODEL Course Elapsed Days 35 ARIA RO MODEL Reference Point ID Pelvis_PRP ARIA RO MODEL Reference Point Dosage Given to Date 45 Gy ARIA RO MODEL Plan ID [id number] ARIA RO MODEL Plan Name [id number] ARIA RO MODEL Energy 10X ARIA RO MODEL Plan Fractions Treated to Date 25 ARIA RO MODEL Plan Total Fractions Prescribed 25 ARIA RO MODEL Plan Prescribed Dose Per Fraction 1.8 Gy ARIA RO MODEL Plan Total Prescribed Dose 4,500 cGy ARIA RO MODEL Plan Primary Reference Point Pelvis_PRP ARIA RO MODEL 12/07/2024 10:1 8 AM CDT us Unknown Provider RADIATION ONCOLOGY ORDERABLES F inal Result Performing Organization Address [facility] Co de Phone Number ARIA RO MODEL [address] [place] [address] * RAD ONC ARIA SESSION SUMMARY (12/05/2024 9:05 AM CDT) Course ID C1 ARIA RO MODEL Course Intent Curative w/chemo ARIA RO MODEL Course Start Date 10/12/2024 12:34 PM ARIA RO MODEL Session Number 25 ARIA RO MODEL Course End Date 10/31/2024 9:25 AM ARIA RO MODEL Course Last Treatment Date 12/05/2024 9:04 AM ARIA RO MODEL Course Elapsed Days 35 ARIA RO MODEL Reference Point ID Pelvis_PRP ARIA RO MODEL Reference Point Dosage Given to Date 45 Gy ARIA RO MODEL Reference Point Session Dosage Given 1.8 Gy ARIA RO MODEL Plan ID [id number] ARIA RO MODEL Plan Name [id number] ARIA RO MODEL Energy 10X ARIA RO MODEL Plan Fractions Treated to Date 25 ARIA RO MODEL Plan Total Fractions Prescribed 25 ARIA RO MODEL Plan Prescribed Dose Per Fraction 1.8 Gy ARIA RO MODEL Plan Total Prescribed Dose 4,500 cGy ARIA RO MODEL Plan Primary Reference Point Pelvis_PRP ARIA RO MODEL 12/05/2024 9:05 AM CDT us Unknown Provider RADIATION ONCOLOGY ORDERABLES F inal Result Performing Organization Address [facility] Co de Phone Number ARIA RO MODEL [address] [place] [address] * RAD ONC ARIA SESSION SUMMARY (12/02/2024 10:16 AM CDT) Course ID C1 ARIA RO MODEL Course Intent Curative w/chemo ARIA RO MODEL Course Start Date 10/12/2024 12:34 PM ARIA RO MODEL Session Number 24 ARIA RO MODEL Course End Date 10/31/2024 9:25 AM ARIA RO MODEL Course Last Treatment Date 12/02/2024 10:15 AM ARIA RO MODEL Course Elapsed Days 32 ARIA RO MODEL Reference Point ID Pelvis_PRP ARIA RO MODEL Reference Point Dosage Given to Date 43.2 Gy ARIA RO MODEL Reference Point Session Dosage Given 1.8 Gy ARIA RO MODEL Plan ID [id number] ARIA RO MODEL Plan Name [id number] ARIA RO MODEL Energy 10X ARIA RO MODEL Plan Fractions Treated to Date 24 ARIA RO MODEL Plan Total Fractions Prescribed 25 ARIA RO MODEL Plan Prescribed Dose Per Fraction 1.8 Gy ARIA RO MODEL Plan Total Prescribed Dose 4,500 cGy ARIA RO MODEL Plan Primary Reference Point Pelvis_PRP ARIA RO MODEL 12/02/2024 10:1 6 AM CDT us Unknown Provider RADIATION ONCOLOGY ORDERABLES F inal Result Performing Organization Address City/State/[facility] Co de Phone Number ARIA RO MODEL [address] [place] [address] * RAD ONC ARIA SESSION SUMMARY (12/01/2024 10:29 AM CDT) Course ID C1 ARIA RO MODEL Course Intent Curative w/chemo ARIA RO MODEL Course Start Date 10/12/2024 12:34 PM ARIA RO MODEL Session Number 23 ARIA RO MODEL Course End Date 10/31/2024 9:25 AM ARIA RO MODEL Course Last Treatment Date 12/01/2024 10:26 AM ARIA RO MODEL Course Elapsed Days 31 ARIA RO MODEL Reference Point ID Pelvis_PRP ARIA RO MODEL Reference Point Dosage Given to Date 41.4 Gy ARIA RO MODEL Reference Point Session Dosage Given 1.8 Gy ARIA RO MODEL Plan ID [id number] ARIA RO MODEL Plan Name [id number] ARIA RO MODEL Energy 10X ARIA RO MODEL Plan Fractions Treated to Date 23 ARIA RO MODEL Plan Total Fractions Prescribed 25 ARIA RO MODEL Plan Prescribed Dose Per Fraction 1.8 Gy ARIA RO MODEL Plan Total Prescribed Dose 4,500 cGy ARIA RO MODEL Plan Primary Reference Point Pelvis_PRP ARIA RO MODEL 12/01/2024 10:2 9 AM CDT us Unknown Provider RADIATION ONCOLOGY ORDERABLES F inal Result Performing Organization Address City/[facility]/ZIP Co de Phone Number ARIA RO MODEL [address] [place] [address] * RAD ONC ARIA SESSION SUMMARY (11/30/2024 10:19 AM CDT) Course ID C1 ARIA RO MODEL Course Intent Curative w/chemo ARIA RO MODEL Course Start Date 10/12/2024 12:34 PM ARIA RO MODEL Session Number 22 ARIA RO MODEL Course End Date 10/31/2024 9:25 AM ARIA RO MODEL Course Last Treatment Date 11/30/2024 10:16 AM ARIA RO MODEL Course Elapsed Days 30 ARIA RO MODEL Reference Point ID Pelvis_PRP ARIA RO MODEL Reference Point Dosage Given to Date 39.6 Gy ARIA RO MODEL Reference Point Session Dosage Given 1.8 Gy ARIA RO MODEL Plan ID [id number] ARIA RO MODEL Plan Name [id number] ARIA RO MODEL Energy 10X ARIA RO MODEL Plan Fractions Treated to Date 22 ARIA RO MODEL Plan Total Fractions Prescribed 25 ARIA RO MODEL Plan Prescribed Dose Per Fraction 1.8 Gy ARIA RO MODEL Plan Total Prescribed Dose 4,500 cGy ARIA RO MODEL Plan Primary Reference Point Pelvis_PRP ARIA RO MODEL 11/30/2024 10:1 9 AM CDT us Unknown Provider RADIATION ONCOLOGY ORDERABLES F inal Result Performing Organization Address City/[facility]/ZIP Co de Phone Number ARIA RO MODEL [address] [place] [address] * RAD ONC ARIA SESSION SUMMARY (11/29/2024 10:46 AM CDT) Course ID C1 ARIA RO MODEL Course Intent Curative w/chemo ARIA RO MODEL Course Start Date 10/12/2024 12:34 PM ARIA RO MODEL Session Number 21 ARIA RO MODEL Course End Date 10/31/2024 9:25 AM ARIA RO MODEL Course Last Treatment Date 11/29/2024 10:48 AM ARIA RO MODEL Course Elapsed Days 29 ARIA RO MODEL Reference Point ID Pelvis_PRP ARIA RO MODEL Reference Point Dosage Given to Date 37.8 Gy ARIA RO MODEL Reference Point Session Dosage Given 1.8 Gy ARIA RO MODEL Plan ID [id number] ARIA RO MODEL Plan Name [id number] ARIA RO MODEL Energy 10X ARIA RO MODEL Plan Fractions Treated to Date 21 ARIA RO MODEL Plan Total Fractions Prescribed 25 ARIA RO MODEL Plan Prescribed Dose Per Fraction 1.8 Gy ARIA RO MODEL Plan Total Prescribed Dose 4,500 cGy ARIA RO MODEL Plan Primary Reference Point Pelvis_PRP ARIA RO MODEL 11/29/2024 10:4 6 AM CDT us Unknown Provider RADIATION ONCOLOGY ORDERABLES F inal Result Performing Organization Address City/State/[facility] Co de Phone Number ARIA RO MODEL [address] [place] [address] * RAD ONC ARIA SESSION SUMMARY (11/28/2024 10:00 AM CDT) Course ID C1 ARIA RO MODEL Course Intent Curative w/chemo ARIA RO MODEL Course Start Date 10/12/2024 12:34 PM ARIA RO MODEL Session Number 20 ARIA RO MODEL Course End Date 10/31/2024 9:25 AM ARIA RO MODEL Course Last Treatment Date 11/28/2024 10:03 AM ARIA RO MODEL Course Elapsed Days 28 ARIA RO MODEL Reference Point ID Pelvis_PRP ARIA RO MODEL Reference Point Dosage Given to Date 36 Gy ARIA RO MODEL Reference Point Session Dosage Given 1.8 Gy ARIA RO MODEL Plan ID [id number] ARIA RO MODEL Plan Name [id number] ARIA RO MODEL Energy 10X ARIA RO MODEL Plan Fractions Treated to Date 20 ARIA RO MODEL Plan Total Fractions Prescribed 25 ARIA RO MODEL Plan Prescribed Dose Per Fraction 1.8 Gy ARIA RO MODEL Plan Total Prescribed Dose 4,500 cGy ARIA RO MODEL Plan Primary Reference Point Pelvis_PRP ARIA RO MODEL 11/28/2024 10:0 0 AM CDT us Unknown Provider RADIATION ONCOLOGY ORDERABLES F inal Result Performing Organization Address [facility] Co de Phone Number ARIA RO MODEL [address] [place] [address] * RAD ONC ARIA SESSION SUMMARY (11/25/2024 10:26 AM CDT) Course ID C1 ARIA RO MODEL Course Intent Curative w/chemo ARIA RO MODEL Course Start Date 10/12/2024 12:34 PM ARIA RO MODEL Session Number 19 ARIA RO MODEL Course End Date 10/31/2024 9:25 AM ARIA RO MODEL Course Last Treatment Date 11/25/2024 10:27 AM ARIA RO MODEL Course Elapsed Days 25 ARIA RO MODEL Reference Point ID Pelvis_PRP ARIA RO MODEL Reference Point Dosage Given to Date 34.2 Gy ARIA RO MODEL Reference Point Session Dosage Given 1.8 Gy ARIA RO MODEL Plan ID [id number] ARIA RO MODEL Plan Name [id number] ARIA RO MODEL Energy 10X ARIA RO MODEL Plan Fractions Treated to Date 19 ARIA RO MODEL Plan Total Fractions Prescribed 25 ARIA RO MODEL Plan Prescribed Dose Per Fraction 1.8 Gy ARIA RO MODEL Plan Total Prescribed Dose 4,500 cGy ARIA RO MODEL Plan Primary Reference Point Pelvis_PRP ARIA RO MODEL 11/25/2024 10:2 6 AM CDT us Unknown Provider RADIATION ONCOLOGY ORDERABLES F inal Result Performing Organization Address [facility] Co de Phone Number ARIA RO MODEL [address] [place] [address] * C. DIFF BY PCR (11/25/2024 10:11 AM CDT) C DIFF TOXIN DNA BY PCR Negative Negative, Invalid 11/25/2024 11:19 AM CDT [facility] Other STOOL SPECIMEN / Unknown Non-Phlebotomy Collection / Unknown 11/25/2024 10:11 AM CDT 11/25/2024 10:11 AM CDT us Bryanna Smith INDUSTRIAL ARTS TEACHER, CREDIT RISK REVIEW OFFICER MICROBIOLOGY - GENERAL ORDERABLES Final Result [facility] [address] [place] [address] * RAD ONC ARIA SESSION SUMMARY (11/24/2024 10:48 AM CDT) Course ID C1 ARIA RO MODEL Course Intent Curative w/chemo ARIA RO MODEL Course Start Date 10/12/2024 12:34 PM ARIA RO MODEL Session Number 18 ARIA RO MODEL Course End Date 10/31/2024 9:25 AM ARIA RO MODEL Course Last Treatment Date 11/24/2024 10:51 AM ARIA RO MODEL Course Elapsed Days 24 ARIA RO MODEL Reference Point ID Pelvis_PRP ARIA RO MODEL Reference Point Dosage Given to Date 32.4 Gy ARIA RO MODEL Reference Point Session Dosage Given 1.8 Gy ARIA RO MODEL Plan ID [id number] ARIA RO MODEL Plan Name Pelvis_4500 ARIA RO MODEL Energy 10X ARIA RO MODEL Plan Fractions Treated to Date 18 ARIA RO MODEL Plan Total Fractions Prescribed 25 ARIA RO MODEL Plan Prescribed Dose Per Fraction 1.8 Gy ARIA RO MODEL Plan Total Prescribed Dose 4,500 cGy ARIA RO MODEL Plan Primary Reference Point Pelvis_PRP ARIA RO MODEL 11/24/2024 10:4 8 AM CDT us Unknown Provider RADIATION ONCOLOGY ORDERABLES F inal Result ARIA RO MODEL [address] [place] [address] * RAD ONC ARIA SESSION SUMMARY (11/23/2024 10:10 AM CDT) Course ID C1 ARIA RO MODEL Course Intent Curative w/chemo ARIA RO MODEL Course Start Date 10/12/2024 12:34 PM ARIA RO MODEL Session Number 17 ARIA RO MODEL Course End Date 10/31/2024 9:25 AM ARIA RO MODEL Course Last Treatment Date 11/23/2024 10:13 AM ARIA RO MODEL Course Elapsed Days 23 ARIA RO MODEL Reference Point ID Pelvis_PRP ARIA RO MODEL Reference Point Dosage Given to Date 30.6 Gy ARIA RO MODEL Reference Point Session Dosage Given 1.8 Gy ARIA RO MODEL Plan ID [id number] ARIA RO MODEL Plan Name Pelvis_4500 ARIA RO MODEL Energy 10X ARIA RO MODEL Plan Fractions Treated to Date 17 ARIA RO MODEL Plan Total Fractions Prescribed 25 ARIA RO MODEL Plan Prescribed Dose Per Fraction 1.8 Gy ARIA RO MODEL Plan Total Prescribed Dose 4,500 cGy ARIA RO MODEL Plan Primary Reference Point Pelvis_PRP ARIA RO MODEL 11/23/2024 10:1 0 AM CDT us Unknown Provider RADIATION ONCOLOGY ORDERABLES F inal Result Performing Organization Address [facility] Co de Phone Number ARIA RO MODEL [address] [place] [address] * RAD ONC ARIA SESSION SUMMARY (11/22/2024 10:11 AM CDT) Course ID C1 ARIA RO MODEL Course Intent Curative w/chemo ARIA RO MODEL Course Start Date 10/12/2024 12:34 PM ARIA RO MODEL Session Number 16 ARIA RO MODEL Course End Date 10/31/2024 9:25 AM ARIA RO MODEL Course Last Treatment Date 11/22/2024 10:14 AM ARIA RO MODEL Course Elapsed Days 22 ARIA RO MODEL Reference Point ID Pelvis_PRP ARIA RO MODEL Reference Point Dosage Given to Date 28.8 Gy ARIA RO MODEL Reference Point Session Dosage Given 1.8 Gy ARIA RO MODEL Plan ID [id number] ARIA RO MODEL Plan Name Pelvis_4500 ARIA RO MODEL Energy 10X ARIA RO MODEL Plan Fractions Treated to Date 16 ARIA RO MODEL Plan Total Fractions Prescribed 25 ARIA RO MODEL Plan Prescribed Dose Per Fraction 1.8 Gy ARIA RO MODEL Plan Total Prescribed Dose 4,500 cGy ARIA RO MODEL Plan Primary Reference Point Pelvis_PRP ARIA RO MODEL 11/22/2024 10:1 1 AM CDT us Unknown Provider RADIATION ONCOLOGY ORDERABLES F inal Result Performing Organization Address City/[facility] Co de Phone Number ARIA RO MODEL [address] [place] [address] * RAD ONC ARIA SESSION SUMMARY (11/21/2024 9:33 AM CDT) Course ID C1 ARIA RO MODEL Course Intent Curative w/chemo ARIA RO MODEL Course Start Date 10/12/2024 12:34 PM ARIA RO MODEL Session Number 15 ARIA RO MODEL Course End Date 10/31/2024 9:25 AM ARIA RO MODEL Course Last Treatment Date 11/21/2024 9:37 AM ARIA RO MODEL Course Elapsed Days 21 ARIA RO MODEL Reference Point ID Pelvis_PRP ARIA RO MODEL Reference Point Dosage Given to Date 27 Gy ARIA RO MODEL Reference Point Session Dosage Given 1.8 Gy ARIA RO MODEL Plan ID [id number] ARIA RO MODEL Plan Name Pelvis_4500 ARIA RO MODEL Energy 10X ARIA RO MODEL Plan Fractions Treated to Date 15 ARIA RO MODEL Plan Total Fractions Prescribed 25 ARIA RO MODEL Plan Prescribed Dose Per Fraction 1.8 Gy ARIA RO MODEL Plan Total Prescribed Dose 4,500 cGy ARIA RO MODEL Plan Primary Reference Point Pelvis_PRP ARIA RO MODEL 11/21/2024 9:33 AM CDT us Unknown Provider RADIATION ONCOLOGY ORDERABLES F inal Result Performing Organization Address City/State/[facility] Co de Phone Number ARIA RO MODEL [address] [place] [address] * RAD ONC ARIA SESSION SUMMARY (11/18/2024 10:08 AM CDT) Course ID C1 ARIA RO MODEL Course Intent Curative w/chemo ARIA RO MODEL Course Start Date 10/12/2024 12:34 PM ARIA RO MODEL Session Number 14 ARIA RO MODEL Course End Date 10/31/2024 9:25 AM ARIA RO MODEL Course Last Treatment Date 11/18/2024 10:11 AM ARIA RO MODEL Course Elapsed Days 18 ARIA RO MODEL Reference Point ID Pelvis_PRP ARIA RO MODEL Reference Point Dosage Given to Date 25.2 Gy ARIA RO MODEL Reference Point Session Dosage Given 1.8 Gy ARIA RO MODEL Plan ID [id number] ARIA RO MODEL Plan Name Pelvis_4500 ARIA RO MODEL Energy 10X ARIA RO MODEL Plan Fractions Treated to Date 14 ARIA RO MODEL Plan Total Fractions Prescribed 25 ARIA RO MODEL Plan Prescribed Dose Per Fraction 1.8 Gy ARIA RO MODEL Plan Total Prescribed Dose 4,500 cGy ARIA RO MODEL Plan Primary Reference Point Pelvis_PRP ARIA RO MODEL 11/18/2024 10:0 8 AM CDT us Unknown Provider RADIATION ONCOLOGY ORDERABLES F inal Result Performing Organization Address [facility] Co de Phone Number ARIA RO MODEL [address] [place] [address] * RAD ONC ARIA SESSION SUMMARY (11/17/2024 10:18 AM CDT) Course ID C1 ARIA RO MODEL Course Intent Curative w/chemo ARIA RO MODEL Course Start Date 10/12/2024 12:34 PM ARIA RO MODEL Session Number 13 ARIA RO MODEL Course End Date 10/31/2024 9:25 AM ARIA RO MODEL Course Last Treatment Date 11/17/2024 10:20 AM ARIA RO MODEL Course Elapsed Days 17 [facility] MODEL Reference Point ID [email or web address] ARI[facility] MODEL Reference Point Dosage Given to Date 23.4 Gy ARIA [facility] MODEL Reference Point Session Dosage Given 1.8 Gy ARIA RO MODEL Plan ID [id number] ARI[facility] MODEL Plan Name [id number] ARIA RO MODEL Energy 10X ARI[facility] MODEL Plan Fractions Treated to Date 13 [facility] MODEL Plan Total Fractions Prescribed 25 [facility] MODEL Plan Prescribed Dose Per Fraction 1.8 Gy ARI[facility] MODEL Plan Total Prescribed Dose 4,500 cGy ARI[facility] MODEL Plan Primary Reference Point [email or web address] ARIA RO MODEL 11/17/2024 10:1 8 AM CDT us Unknown Provider RADIATION ONCOLOGY ORDERABLES F inal Result Performing Organization Address [facility] Co de Phone Number ARIA RO MODEL [address] [place] [address] * RAD ONC ARIA SESSION SUMMARY (11/16/2024 10:14 AM CDT) Course ID C1 ARIA RO MODEL Course Intent Curative w/chemo ARIA RO MODEL Course Start Date 10/12/2024 12:34 PM ARIA RO MODEL Session Number 12 ARIA RO MODEL Course End Date 10/31/2024 9:25 AM ARIA RO MODEL Course Last Treatment Date 11/16/2024 10:17 AM ARIA RO MODEL Course Elapsed Days 16 ARIA RO MODEL Reference Point ID Pelvis_PRP ARIA RO MODEL Reference Point Dosage Given to Date 21.6 Gy ARIA RO MODEL Reference Point Session Dosage Given 1.8 Gy ARIA RO MODEL Plan ID [id number] ARIA RO MODEL Plan Name Pelvis_4500 ARIA RO MODEL Energy 10X ARIA RO MODEL Plan Fractions Treated to Date 12 ARIA RO MODEL Plan Total Fractions Prescribed 25 ARIA RO MODEL Plan Prescribed Dose Per Fraction 1.8 Gy ARIA RO MODEL Plan Total Prescribed Dose 4,500 cGy ARIA RO MODEL Plan Primary Reference Point Pelvis_PRP ARIA RO MODEL 11/16/2024 10:1 4 AM CDT us Unknown Provider RADIATION ONCOLOGY ORDERABLES F inal Result ARIA RO MODEL [address] [place] [address] * RAD ONC ARIA SESSION SUMMARY (11/15/2024 9:15 AM CDT) Course ID C1 ARIA RO MODEL Course Intent Curative w/chemo ARIA RO MODEL Course Start Date 10/12/2024 12:34 PM ARIA RO MODEL Session Number 11 ARIA RO MODEL Course End Date 10/31/2024 9:25 AM ARIA RO MODEL Course Last Treatment Date 11/15/2024 9:18 AM ARIA RO MODEL Course Elapsed Days 15 ARIA RO MODEL Reference Point ID Pelvis_PRP ARIA RO MODEL Reference Point Dosage Given to Date 19.8 Gy ARIA RO MODEL Reference Point Session Dosage Given 1.8 Gy ARIA RO MODEL Plan ID [id number] ARIA RO MODEL Plan Name Pelvis_4500 ARIA RO MODEL Energy 10X ARIA RO MODEL Plan Fractions Treated to Date 11 ARIA RO MODEL Plan Total Fractions Prescribed 25 ARIA RO MODEL Plan Prescribed Dose Per Fraction 1.8 Gy ARIA RO MODEL Plan Total Prescribed Dose 4,500 cGy ARIA RO MODEL Plan Primary Reference Point Pelvis_PRP ARIA RO MODEL 11/15/2024 9:15 AM CDT us Unknown Provider RADIATION ONCOLOGY ORDERABLES F inal Result Performing Organization Address [facility] Co de Phone Number ARIA RO MODEL [address] [place] [address] * RAD ONC ARIA SESSION SUMMARY (11/14/2024 10:11 AM CDT) Course ID C1 ARIA RO MODEL Course Intent Curative w/chemo ARIA RO MODEL Course Start Date 10/12/2024 12:34 PM ARIA RO MODEL Session Number 10 ARIA RO MODEL Course End Date 10/31/2024 9:25 AM ARIA RO MODEL Course Last Treatment Date 11/14/2024 10:12 AM ARIA RO MODEL Course Elapsed Days 14 ARIA RO MODEL Reference Point ID Pelvis_PRP ARIA RO MODEL Reference Point Dosage Given to Date 18 Gy ARIA RO MODEL Reference Point Session Dosage Given 1.8 Gy ARIA RO MODEL Plan ID [id number] ARIA RO MODEL Plan Name Pelvis_4500 ARIA RO MODEL Energy 10X ARIA RO MODEL Plan Fractions Treated to Date 10 ARIA RO MODEL Plan Total Fractions Prescribed 25 ARIA RO MODEL Plan Prescribed Dose Per Fraction 1.8 Gy ARIA RO MODEL Plan Total Prescribed Dose 4,500 cGy ARIA RO MODEL Plan Primary Reference Point Pelvis_PRP ARIA RO MODEL 11/14/2024 10:1 1 AM CDT us Unknown Provider RADIATION ONCOLOGY ORDERABLES F inal Result Performing Organization Address [facility] Co de Phone Number ARIA RO MODEL [address] [place] [address] * RAD ONC ARIA SESSION SUMMARY (11/11/2024 10:09 AM CDT) Course ID C1 ARIA RO MODEL Course Intent Curative w/chemo ARIA RO MODEL Course Start Date 10/12/2024 12:34 PM ARIA RO MODEL Session Number 9 ARIA RO MODEL Course End Date 10/31/2024 9:25 AM ARIA RO MODEL Course Last Treatment Date 11/11/2024 10:08 AM ARIA RO MODEL Course Elapsed Days 11 ARIA RO MODEL Reference Point ID Pelvis_PRP ARIA RO MODEL Reference Point Dosage Given to Date 16.2 Gy ARIA RO MODEL Reference Point Session Dosage Given 1.8 Gy ARIA RO MODEL Plan ID [id number] ARIA RO MODEL Plan Name Pelvis_4500 ARIA RO MODEL Energy 10X ARIA RO MODEL Plan Fractions Treated to Date 9 ARIA RO MODEL Plan Total Fractions Prescribed 25 ARIA RO MODEL Plan Prescribed Dose Per Fraction 1.8 Gy ARIA RO MODEL Plan Total Prescribed Dose 4,500 cGy ARIA RO MODEL Plan Primary Reference Point Pelvis_PRP ARIA RO MODEL 11/11/2024 10:0 9 AM CDT us Unknown Provider RADIATION ONCOLOGY ORDERABLES F inal Result Performing Organization Address [facility] Co de Phone Number ARIA RO MODEL [address] [place] [address] * RAD ONC ARIA SESSION SUMMARY (11/10/2024 10:12 AM CDT) Course ID C1 ARIA RO MODEL Course Intent Curative w/chemo ARIA RO MODEL Course Start Date 10/12/2024 12:34 PM ARIA RO MODEL Session Number 8 ARIA RO MODEL Course End Date 10/31/2024 9:25 AM ARIA RO MODEL Course Last Treatment Date 11/10/2024 10:15 AM ARIA RO MODEL Course Elapsed Days 10 ARIA RO MODEL Reference Point ID Pelvis_PRP ARIA RO MODEL Reference Point Dosage Given to Date 14.4 Gy ARIA RO MODEL Reference Point Session Dosage Given 1.8 Gy ARIA RO MODEL Plan ID [id number] ARIA RO MODEL Plan Name Pelvis_4500 ARIA RO MODEL Energy 10X ARIA RO MODEL Plan Fractions Treated to Date 8 ARIA RO MODEL Plan Total Fractions Prescribed 25 ARIA RO MODEL Plan Prescribed Dose Per Fraction 1.8 Gy ARIA RO MODEL Plan Total Prescribed Dose 4,500 cGy ARIA RO MODEL Plan Primary Reference Point Pelvis_PRP ARIA RO MODEL 11/10/2024 10:1 2 AM CDT us Unknown Provider RADIATION ONCOLOGY ORDERABLES F inal Result Performing Organization Address [facility] Co de Phone Number ARIA RO MODEL [address] [place] [address] * RAD ONC ARIA SESSION SUMMARY (11/09/2024 10:11 AM CDT) Course ID C1 ARIA RO MODEL Course Intent Curative w/chemo ARIA RO MODEL Course Start Date 10/12/2024 12:34 PM ARIA RO MODEL Session Number 7 ARIA RO MODEL Course End Date 10/31/2024 9:25 AM ARIA RO MODEL Course Last Treatment Date 11/09/2024 10:14 AM ARIA RO MODEL Course Elapsed Days 9 ARIA RO MODEL Reference Point ID Pelvis_PRP ARIA RO MODEL Reference Point Dosage Given to Date 12.6 Gy ARIA RO MODEL Reference Point Session Dosage Given 1.8 Gy ARIA RO MODEL Plan ID [id number] ARIA RO MODEL Plan Name Pelvis_4500 ARIA RO MODEL Energy 10X ARIA RO MODEL Plan Fractions Treated to Date 7 ARIA RO MODEL Plan Total Fractions Prescribed 25 ARIA RO MODEL Plan Prescribed Dose Per Fraction 1.8 Gy ARIA RO MODEL Plan Total Prescribed Dose 4,500 cGy ARIA RO MODEL Plan Primary Reference Point Pelvis_PRP ARIA RO MODEL 11/09/2024 10:1 1 AM CDT us Unknown Provider RADIATION ONCOLOGY ORDERABLES F inal Result Performing Organization Address [facility] Co de Phone Number ARIA RO MODEL [address] [place] [address] * RAD ONC ARIA SESSION SUMMARY (11/08/2024 9:35 AM CDT) Course ID C1 ARIA RO MODEL Course Intent Curative w/chemo ARIA RO MODEL Course Start Date 10/12/2024 12:34 PM ARIA RO MODEL Session Number 6 ARIA RO MODEL Course End Date 10/31/2024 9:25 AM ARIA RO MODEL Course Last Treatment Date 11/08/2024 9:38 AM ARIA RO MODEL Course Elapsed Days 8 ARIA RO MODEL Reference Point ID Pelvis_PRP ARIA RO MODEL Reference Point Dosage Given to Date 10.8 Gy ARIA RO MODEL Reference Point Session Dosage Given 1.8 Gy ARIA RO MODEL Plan ID [id number] ARIA RO MODEL Plan Name Pelvis_4500 ARIA RO MODEL Energy 10X ARIA RO MODEL Plan Fractions Treated to Date 6 ARIA RO MODEL Plan Total Fractions Prescribed 25 ARIA RO MODEL Plan Prescribed Dose Per Fraction 1.8 Gy ARIA RO MODEL Plan Total Prescribed Dose 4,500 cGy ARIA RO MODEL Plan Primary Reference Point Pelvis_PRP ARIA RO MODEL 11/08/2024 9:35 AM CDT us Unknown Provider RADIATION ONCOLOGY ORDERABLES F inal Result Performing Organization Address [facility] Co de Phone Number ARIA RO MODEL [address] [place] [address] * RAD ONC ARIA SESSION SUMMARY (11/04/2024 10:04 AM CDT) Course ID C1 ARIA RO MODEL Course Intent Curative w/chemo ARIA RO MODEL Course Start Date 10/12/2024 12:34 PM ARIA RO MODEL Session Number 5 ARIA RO MODEL Course End Date 10/31/2024 9:25 AM ARIA RO MODEL Course Last Treatment Date 11/04/2024 10:07 AM ARIA RO MODEL Course Elapsed Days 4 ARIA RO MODEL Reference Point ID Pelvis_PRP ARIA RO MODEL Reference Point Dosage Given to Date 9 Gy ARIA RO MODEL Reference Point Session Dosage Given 1.8 Gy ARIA RO MODEL Plan ID [id number] ARIA RO MODEL Plan Name Pelvis_4500 ARIA RO MODEL Energy 10X ARIA RO MODEL Plan Fractions Treated to Date 5 ARIA RO MODEL Plan Total Fractions Prescribed 25 ARIA RO MODEL Plan Prescribed Dose Per Fraction 1.8 Gy ARIA RO MODEL Plan Total Prescribed Dose 4,500 cGy ARIA RO MODEL Plan Primary Reference Point Pelvis_PRP ARIA RO MODEL 11/04/2024 10:0 4 AM CDT us Unknown Provider RADIATION ONCOLOGY ORDERABLES F inal Result Performing Organization Address [facility] Co de Phone Number ARIA RO MODEL [address] [place] [address] * RAD ONC ARIA SESSION SUMMARY (11/03/2024 10:15 AM CDT) Course ID C1 ARIA RO MODEL Course Intent Curative w/chemo ARIA RO MODEL Course Start Date 10/12/2024 12:34 PM ARIA RO MODEL Session Number 4 ARIA RO MODEL Course End Date 10/31/2024 9:25 AM ARIA RO MODEL Course Last Treatment Date 11/03/2024 10:18 AM ARIA RO MODEL Course Elapsed Days 3 ARIA RO MODEL Reference Point ID Pelvis_PRP ARIA RO MODEL Reference Point Dosage Given to Date 7.2 Gy ARIA RO MODEL Reference Point Session Dosage Given 1.8 Gy ARIA RO MODEL Plan ID [id number] ARIA RO MODEL Plan Name Pelvis_4500 ARIA RO MODEL Energy 10X ARIA RO MODEL Plan Fractions Treated to Date 4 ARIA RO MODEL Plan Total Fractions Prescribed 25 ARIA RO MODEL Plan Prescribed Dose Per Fraction 1.8 Gy ARIA RO MODEL Plan Total Prescribed Dose 4,500 cGy ARIA RO MODEL Plan Primary Reference Point Pelvis_PRP ARIA RO MODEL 11/03/2024 10:1 5 AM CDT us Unknown Provider RADIATION ONCOLOGY ORDERABLES F inal Result ARIA RO MODEL [address] [place] [address] * RAD ONC ARIA SESSION SUMMARY (11/02/2024 10:32 AM CDT) Course ID C1 ARIA RO MODEL Course Intent Curative w/chemo ARIA RO MODEL Course Start Date 10/12/2024 12:34 PM ARIA RO MODEL Session Number 3 ARIA RO MODEL Course End Date 10/31/2024 9:25 AM ARIA RO MODEL Course Last Treatment Date 11/02/2024 10:33 AM ARIA RO MODEL Course Elapsed Days 2 ARIA RO MODEL Reference Point ID Pelvis_PRP ARIA RO MODEL Reference Point Dosage Given to Date 5.4 Gy ARIA RO MODEL Reference Point Session Dosage Given 1.8 Gy ARIA RO MODEL Plan ID [id number] ARIA RO MODEL Plan Name Pelvis_4500 ARIA RO MODEL Energy 10X ARIA RO MODEL Plan Fractions Treated to Date 3 ARIA RO MODEL Plan Total Fractions Prescribed 25 ARIA RO MODEL Plan Prescribed Dose Per Fraction 1.8 Gy ARIA RO MODEL Plan Total Prescribed Dose 4,500 cGy ARIA RO MODEL Plan Primary Reference Point Pelvis_PRP ARIA RO MODEL 11/02/2024 10:3 2 AM CDT us Unknown Provider RADIATION ONCOLOGY ORDERABLES F inal Result Performing Organization Address [facility] Co de Phone Number ARIA RO MODEL [address] [place] [address] * RAD ONC ARIA SESSION SUMMARY (11/01/2024 10:27 AM CDT) Course ID C1 ARIA RO MODEL Course Intent Curative w/chemo ARIA RO MODEL Course Start Date 10/12/2024 12:34 PM ARIA RO MODEL Session Number 2 ARIA RO MODEL Course End Date 10/31/2024 9:25 AM ARIA RO MODEL Course Last Treatment Date 11/01/2024 10:30 AM ARIA RO MODEL Course Elapsed Days 1 ARIA RO MODEL Reference Point ID Pelvis_PRP ARIA RO MODEL Reference Point Dosage Given to Date 3.6 Gy ARIA RO MODEL Reference Point Session Dosage Given 1.8 Gy ARIA RO MODEL Plan ID [id number] ARIA RO MODEL Plan Name Pelvis_4500 ARIA RO MODEL Energy 10X ARIA RO MODEL Plan Fractions Treated to Date 2 ARIA RO MODEL Plan Total Fractions Prescribed 25 ARIA RO MODEL Plan Prescribed Dose Per Fraction 1.8 Gy ARIA RO MODEL Plan Total Prescribed Dose 4,500 cGy ARIA RO MODEL Plan Primary Reference Point Pelvis_PRP ARIA RO MODEL 11/01/2024 10:2 7 AM CDT us Unknown Provider RADIATION ONCOLOGY ORDERABLES F inal Result Performing Organization Address [facility] Co de Phone Number ARIA RO MODEL [address] [place] [address] * RAD ONC ARIA SESSION SUMMARY (10/31/2024 9:24 AM CDT) Course ID C1 ARIA RO MODEL Course Intent Curative w/chemo ARIA RO MODEL Course Start Date 10/12/2024 12:34 PM ARIA RO MODEL Session Number 1 ARIA RO MODEL Course End Date 10/31/2024 9:25 AM ARIA RO MODEL Course Last Treatment Date 10/31/2024 9:27 AM ARIA RO MODEL Course Elapsed Days 0 ARIA RO MODEL Reference Point ID Pelvis_PRP ARIA RO MODEL Reference Point Dosage Given to Date 1.8 Gy ARIA RO MODEL Reference Point Session Dosage Given 1.8 Gy ARIA RO MODEL Plan ID [id number] ARIA RO MODEL Plan Name Pelvis_4500 ARIA RO MODEL Energy 10X ARIA RO MODEL Plan Fractions Treated to Date 1 ARIA RO MODEL Plan Total Fractions Prescribed 25 ARIA RO MODEL Plan Prescribed Dose Per Fraction 1.8 Gy ARIA RO MODEL Plan Total Prescribed Dose 4,500 cGy ARIA RO MODEL Plan Primary Reference Point Pelvis_PRP ARIA RO MODEL 10/31/2024 9:24 AM CDT us Unknown Provider RADIATION ONCOLOGY ORDERABLES F inal Result ARIA RO MODEL [address] [place] [address] * MRI PELVIS W/WO CONTRAST (10/17/2024 1:27 [...] signed by José Antonio Lopez M.D. NS: SHANEKA Report ID: [id number] Reading Location: [id number] Procedure Note José Antonio Lopez MD - [...] Antonio Lopez M.D. NS: NS Report ID: [id number] Reading Location: [id number] IMPRESSION: Heterogeneous cervical mass with invasion of the upper 2/3 of the vagina and probable early parametrial invasion at multiple locations as described above. Constellation of findings compatible with FIGO stage IIB cervical cancer. Recommend correlation with tissue sampling. No pathologically enlarged lymphadenopathy. us Taqueria Gresham MD IMG MR ORDERABLES Final Result * HM COLONOSCOPY (10/12/2024 12:00 AM CDT) 10/12/2024 us Provider Scan PROCEDURE/MINOR SURGICAL ORDERAB LES Final Result Performing Organization Address City/[facility]/ZIP Co de Phone Number SCAN * PET REFERENCE IMAGES FOR IMPORT (10/11/2024 11:31 AM CDT) us Not On File Provider IMG NM ORDERABLES Final Res ult * IRON,TRANSFERN,CALC.TIBC,%SAT (10/10/2024 12:40 PM CDT) IRON 77 25 - 156 mcg/dL 10/10/2024 1:40 PM CDT [facility] TRANSFERRIN 285 173 - 360 mg/dL 10/10/2024 1:40 PM CDT [facility] TIBC, CALCULATED 356 265 - 497 mcg/dL 10/10/2024 1:40 PM CDT [facility] % SATURATION * 22 15 - 62 % 10/10/2024 1:40 PM CDT [facility] Blood Venipuncture / Unknown 10/10/2024 12:40 PM CDT 10/10/2024 12:48 PM CDT us Malvin Estrada MD CHEMISTRY ORDERABLES Fin al Result [facility] [address] [place] [address] * FERRITIN (10/10/2024 12:40 PM CDT) FERRITIN 109 5 - 204 ng/mL 10/10/2024 1:56 PM CDT [facility] Blood Venipuncture / Unknown 10/10/2024 12:40 PM CDT 10/10/2024 12:48 PM CDT us Malvin Estrada MD CHEMISTRY ORDERABLES Fin al Result Performing Organization Address City/[facility]/ZIP Co de Phone Number [facility] [address] [place] [address] * GYNECOLOGIC ONCOLOGY SURGERY PROCEDURE (09/19/2024 12:00 AM CDT) 09/19/2024 us Provider Scan GEN ORDERS Final Result SCAN * PATHOLOGY SURGICAL (09/19/2024 12:00 AM CDT) 09/19/2024 us Provider Scan PATHOLOGY/CYTOLOGY ORDERABLES Fi nal Result Performing Organization Address [facility] Co de Phone Number SCAN from Last 3 Months Insurance [facility] Care Teams Grocery Caddy Relationship Specialty Start Date End Date Diann Crain, INDUSTRIAL ARTS TEACHER, CREDIT RISK REVIEW OFFICER [address] [place] [address] PCP - General Advanced Practice Nurse 10/10/24 Antonia Rodriguez MD [address] [address] Consulting Physician Gynecologic Oncology 10/11/24 Malvin Estrada MD [address] [place] [address] Consulting Physician Medical Oncology 10/11/24 Taqueria Gresham MD [address] [place] [address] Consulting Physician Radiation Oncology 10/11/24 Montana Lakhani MD [address] [place] [address] Consulting Physician Radiation Oncology 10/12/24
--- OUTSIDE RECORDS SUMMARY | 2024-12-19 10:48 | XMS_ITS ---
Author Organization [facility] Address [address] [place], [place] [address] Care Team Providers Care Room Maid Name Role Phone JESUS MANUEL AHMADI Unavailable [phone] Diann Crain Unavailable Unavailable JESUS MANUEL ORTEGA Unavailable [phone] REASON FOR VISIT *General care, sick Social History Sex Assigned At : Social History Observation Description Sex Assigned At Female Encounters Encounter Location Date Provider Diagnosis [facility] [place] [address] [address] [facility] [address] [place], [place] [id number] 12/08/2024 JESUS MANUEL ORTEGA Plan Of Treatment No Information Progress Notes * Ida GRANDE RDOB: (64 yo F)Acc No.[id number]:12/08/2024 Patient: Sarah Ida MINER Provider: Oliver Ortega DPM :1960 A ge:64 Y S ex:Female Date:12/08/2024 Address:[address] [facility], [address] [place], [place] Subjective: * Chief Complaints: * 1 . *General care, sick. * Medical History: Objective: * Vitals: Assessment: Plan: * Treatment: * Billing Information: * Visit Code: * Procedure Codes: * Electronic signature of JESUS MANUEL ORTEGA DPM on 12/19/2024 at 10:47 AM CDT Sign off status: Pending * Provider: Oliver Ortega, MG Date: 0 12/08/2024 Generated for Sara ovalle/Bowen/Aranza on: 0 12/19/2024 10:47 AM CDT
[2024-12-19 10:58] LABS: Hematocrit 26.7 % (35.0-49.0); Hemoglobin 9.4 g/dL (12.0-15.0); Mean Corpuscular HGB Conc 35.2 g/dL (32-36); Mean Corpuscular Hemoglobin 27.6 pg (27.0-31.0); Mean Corpuscular Volume 78.5 fL (78.0-102.0); Platelet Count Result 213 K/mm3 (150-420); Red Blood Count 3.40 M/mm3 (4.20-5.40); White Blood Count 3.9 K/mm3 (4.8-10.8)
[2024-12-19] MEDS: SODIUM CHLORIDE 0.9% IV 1,000 ML 999 ML IV CONT (10:59)
--- OUTSIDE RECORDS SUMMARY | 2024-12-19 11:11 | XMS_ITS | Encounter Summary ---
Author Organization [facility] Health Address [address] [facility] [place] [address] Care Team Providers Care Principal Military Analyst Name Role Phone Davidbeatris Diann Edison EGG SEPARATOR-HOSE TESTER Primary Care Provid er Encounter Details Date Type Department Care Team (Latest Contact Info) Description 11/16/2024 1:00 PM CDT - 12/18/2024 11:59 PM CDT Hospital Encounter [facility] - Radiation Oncology [address] [place] [address] Montana Lakhani MD [address] [place], [place] [phone] Discharge Disposition: Home or Self Care Social [...] on file Legal Sex Female 1:25 PM REVENUE OFFICER Gender Identity Not on file Sexual Orientation [...] Description 12/20/2024 7:15 AM CDT Hospital Encounter [facility] [address] [place] [address] Montana Villa MD [address] [facility] [address] [place] [address] Surgery General 12/20/2024 7:15 AM CDT - 12/20/2024 8:45 AM CDT Surgery [facility] [address] [place] [address] [place] [address] [place], [place] [address] [address] [address] PLACEMENT OF TANDEM AND RING 12/20/2024 9:30 AM CDT Office Visit [facility] - Rad/Onc [address] [place] [phone] Montana Lakhani MD [address] [place] [address] 12/22/2024 7:15 AM CDT Hospital Encounter [facility] [address] [place] [address] Lamont Cueva MD [address] [place] [address] [phone] Surgery General 12/22/2024 7:15 AM CDT - 12/22/2024 8:45 AM CDT Surgery [facility] [address] [place] [address] Lamont Cueva MD [address] [place] [address] [phone] PLACEMENT OF TANDEM AND RING 12/22/2024 9:30 AM CDT Office Visit [facility] - Rad/Onc [address] [place] [phone] Montana Lakhani MD [address] [place] [address] 12/27/2024 7:15 AM CDT Hospital Encounter [facility] [address] [place] [address] [place] [address] [place] [address] Surgery General 12/27/2024 7:15 AM CDT - 12/27/2024 8:15 AM CDT Surgery [facility] [address] [place] [address] Montana Villa MD [address] [address] PLACEMENT OF TANDEM AND RINGS 12/27/2024 9:30 AM CDT Office Visit [facility] - Rad/Onc [address] [place] [phone] Montana Lakhani MD [address] [place] [address] 01/03/2025 7:15 AM CDT Hospital Encounter [facility] [address] [place] [address] [place] [address] [place] [address] Surgery General 01/03/2025 7:15 AM CDT - 01/03/2025 8:24 AM CDT Surgery [facility] [address] [place] [address] Saran Troy MD [address] [place] [address] PLACEMENT OF TANDEM AND RING 01/03/2025 9:30 AM CDT Office Visit [facility] - Rad/Onc [address] [place] [phone] Montana Lakhani MD [address] [place] [address] 01/05/2025 9:30 AM CDT Office Visit [facility] - Rad/Onc [address] [place] [phone] Montana Lakhani MD [address] [place] [address] Scheduled Procedures Name Priority Associated Diagnoses Date/Ti me BRACHYTHERAPY UTERINE TANDEMS/VAGINAL OVOIDS Diagnosis unknown 12/20/2024 7:15 AM CDT BRACHYTHERAPY UTERINE TANDEMS/VAGINAL OVOIDS Diagnosis unknown 12/22/2024 7:15 AM CDT BRACHYTHERAPY UTERINE TANDEMS/VAGINAL OVOIDS Diagnosis unknown 12/27/2024 7:15 AM CDT BRACHYTHERAPY UTERINE TANDEMS/VAGINAL OVOIDS Diagnosis unknown 01/03/2025 7:15 AM CDT documented as of this encounter Visit Diagnoses Not on filedocumented in this encounter Care Teams Principal Military Analyst Relationship Specialty Start Date End Date Diann Crain, EGG SEPARATOR-HOSE TESTER [address] [place] [address] PCP - General Nurse Practitioner Family 09/15/24 documented as of this encounter
--- OUTSIDE RECORDS SUMMARY | 2024-12-19 11:11 | XMS_ITS | Clinical Summary ---
Author Organization [facility] Address [address] [place] [address] Care Team Providers Care Gsa Coordinator Name Role Phone Chu Lorenzo MD Primary [...] Sex Assigned at Female 04/29/2018 9:29 PM INTERNATIONAL SALES REPRESENTATIVE Legal Sex Female 5:33 PM INTERNATIONAL SALES REPRESENTATIVE Gender Identity Female 04/29/2018 9:29 PM INTERNATIONAL SALES REPRESENTATIVE Sexual Orientation Straight 04/29/2018 9: 29 PM INTERNATIONAL SALES REPRESENTATIVE Last Filed Vital Signs Vital Sign Reading Time Taken Comments Blood Pressure 144/79 05/04/2018 1:50 PM INTERNATIONAL SALES REPRESENTATIVE Pulse 69 05/04/2018 1:50 PM INTERNATIONAL SALES REPRESENTATIVE Temperature 36.6 C (97.9 F) 05/04/2018 1:50 PM INTERNATIONAL SALES REPRESENTATIVE Respiratory Rate 18 05/04/2018 1:50 PM INTERNATIONAL SALES REPRESENTATIVE Oxygen Saturation 100% 05/04/2018 1:50 PM INTERNATIONAL SALES REPRESENTATIVE Inhaled Oxygen Concentration - - Weight 86.8 kg (191 lb 5.8 oz) 05/04/2018 4:43 A M INTERNATIONAL SALES REPRESENTATIVE Height 172.7 cm (5' 8) 04/29/2018 9:12 PM INTERNATIONAL SALES REPRESENTATIVE Body Mass Index 29.1 04/29/2018 9:12 PM INTERNATIONAL SALES REPRESENTATIVE Plan of Treatment Health Maintenance Due Date [...] patient's age to complete this topic Insurance [facility] [address] Advance Directives * Full Code (Latest Code Status on File) Date Activated Date Inactivated Comments 04/29/2018 11:48 PM 05/04/2018 7:30 PM Care Teams Gsa Coordinator Relationship Specialty Start Date End Date Chu Lorenzo MD PCP - General SURGERY 04/24/18
--- OUTSIDE RECORDS SUMMARY | 2024-12-19 11:11 | XMS_ITS | Encounter Summary ---
Author Organization [facility] Address [address] [facility] [place] [address] Phone Care Team Providers Care Head Of Digital Name Role Phone Diann Crain APRN, ALLERGIST/IMMUNOLOGIST Primary Care Provi scot Antonia Rodriguez MD Unavailable [phone] Malvin Estrada MD Unavailable Taqueria Gresham MD Unavailable [phone] [place] Lakhani MD Unavailable Encounter Details Date Type Department Care Team (Late st Contact Info) Description 12/07/2024 Documentation Only [facility] Oncology Services [address] [place] [address] [place] Social [...] RD - 12/07/2024 4:28 PM CDT 12/05/2024-DC me=[email or web address]# documented in this encounter Plan of Treatment Upcoming Encounters Date Type Department Care Team (Late st Contact Info) Description 01/02/2025 8:15 AM CDT Office Visit [facility] Oncology Services [address] [place] [id number] Malvin Estrada MD [address] [place] [address] Bryanna Smith, METAL EXPEDITER, ALLERGIST/IMMUNOLOGIST [address] [place] [address] Discharge Disposition: Discharged to home or Selfcare 01/02/2025 9:00 AM CDT Lab [facility]cology [facility] [address] [place] [phone] Malvin Estrada MD [address] [place] [address] Discharge Disposition: Discharged to home or Selfcare 03/14/2025 9:30 AM CDT Office Visit [facility] Oncology [facility] [address] [place] [phone] Taqueria Gresham MD [address] [place] [address] Discharge Disposition: Discharged to home or Selfcare documented as of this encounter Visit Diagnoses Not on filedocumented in this encounter Care Teams Head Of Digital Relationship Specialty Start Date End Date Diann Crain, METAL EXPEDITER, ALLERGIST/IMMUNOLOGIST [address] [place] [address] PCP - General Advanced Practice Nurse 10/10/24 Antonia Rodirguez MD [address] [address] Consulting Physician Gynecologic Oncology 10/11/24 Malvin Estrada MD [address] [place], [place] [id number] Consulting Physician Medical Oncology 10/11/24 Taqueria Gresham MD [address] [place] [address] Consulting Physician Radiation Oncology 10/11/24 [place] [address] [place] [id number] Consulting Physician Radiation Oncology 10/12/24 documented as of this encounter
--- OUTSIDE RECORDS SUMMARY | 2024-12-19 11:11 | XMS_ITS ---
Author Organization [facility] Address [address] [place] [address] Phone Care Team Providers Care Sub Acute Care Nurse Name Role Phone Diann Crain THREE KNIFE TRIMMER, SCREEN PRINTING MACHINE OPERATOR Primary Care Provi scot Antonia Rodriguez MD Unavailable [phone] Malvin Estrada MD Unavailable [phone] Taqueria Gresham MD Unavailable [phone] Montana Lakhani MD Unavailable Active Problems Problem Noted Date Diagnosed Date [...]
--- OUTSIDE RECORDS SUMMARY | 2024-12-19 11:11 | XMS_ITS | Clinical Summary ---
Author Organization [facility] Address [address] [place] [address] Phone Care Team Providers Care Senior Oracle Pl Sql Developer Name Role Phone DavidbeatrisDiann PARTS DESIGNER, CUSTOMS VERIFIER Primary Care Provi scot Antonia Rodriguez MD Unavailable [phone] Malvin Estrada MD Unavailable [phone] Taqueria Gresham MD Unavailable [phone] Montana Lakhani MD Unavailable [phone] Allergies Active Allergy Reactions Criticality Noted Date [...] Description 12/12/2024 8:30 AM CDT Clinical Support [facility] On[facility] Services [address] [place] [address] Bryanna Smith, PARTS DESIGNER, CUSTOMS VERIFIER Cervical cancer, FIGO stage IB (HCC) (Primary Dx); Cervical cancer, FIGO stage IIB (HCC); Dysuria Discharge Disposition: Discharged to home or Selfcare 12/12/2024 8:15 AM CDT Office Visit [facility] [address] [place] [phone] Bryanna Smith APRN, CNP Cervical cancer, FIGO stage IB (HCC) (Primary Dx); History of therapeutic radiation; History of cancer chemotherapy; Dysuria; Chemotherapy induced diarrhea; Chemotherapy-induce d nausea Discharge Disposition: Discharged to home or Selfcare 12/12/2024 Travel 12/10/2024 Travel 12/07/2024 Documentation Only [facility] [address] [place] [phone] Yanet Black, BARI 12/05/2024 9:00 AM CDT Clinical Support [facility] [address] [place] [phone] Malvin Estrada MD Cervical cancer, FIGO stage IB (HCC) (Primary Dx); Cervical cancer, FIGO stage IIB (HCC) Discharge Disposition: Discharged to home or Selfcare 12/05/2024 9:00 AM CDT Office Visit [facility] [address] [place] [phone] Taqueria Gresham MD Butler, David Ferrell, MD Cervical cancer, FIGO stage IIB (HCC) (Primary Dx); Encounter for radiotherapy; Patient on combined chemotherapy and radiation Discharge Disposition: Discharged to home or Selfcare 12/05/2024 8:45 AM CDT Clinical Support [facility] [address] [place] [phone] Taqueria Gresham MD History of therapeutic radiation (Primary Dx); History of cancer chemotherapy; Cervical cancer, FIGO stage IB (HCC) Discharge Disposition: Discharged to home or Selfcare 12/05/2024 Travel 12/03/2024 Travel 12/02/2024 10:00 AM CDT Clinical Support [facility] [address] [place] [phone] Taqueria Gresham MD Discharge Disposition: Discharged to home or Selfcare 12/02/2024 Travel 12/01/2024 10:00 AM CDT Clinical Support [facility] [address] [place] [phone] Taqueria Gresham MD Discharge Disposition: Discharged to home or Selfcare 12/01/2024 Travel 11/30/2024 10:00 AM CDT Clinical Support [facility] [address] [place] [phone] Taqueria Gresham MD Discharge Disposition: Discharged to home or Selfcare 11/30/2024 Travel 11/29/2024 10:00 AM CDT Clinical Support [facility] [address] [place] [phone] Taqueria Gresham MD Discharge Disposition: Discharged to home or Selfcare 11/29/2024 Travel 11/28/2024 10:15 AM CDT Office Visit [facility] [address] [place] [phone] Taqueria Gresham MD Encounter for radiotherapy (Primary Dx); Patient on combined chemotherapy and radiation; Cervical cancer, FIGO stage IIB (HCC); Loose stools Discharge Disposition: Discharged to home or Selfcare 11/28/2024 10:00 AM CDT Clinical Support [facility] [address] [place] [phone] Taqueria Gresham MD Discharge Disposition: Discharged to home or Selfcare 11/28/2024 9:00 AM CDT Clinical Support [facility] [address] [place] [phone] Malvin Estrada MD Cervical cancer, FIGO stage IIB (HCC) (Primary Dx); Cervical cancer, FIGO stage IB (HCC) Discharge Disposition: Discharged to home or Selfcare 11/28/2024 Travel 11/27/2024 Travel 11/26/2024 Travel 11/25/2024 10:00 AM CDT Clinical Support [facility] [address] [place] [address] Taqueria Gresham MD Discharge Disposition: Discharged to home or Selfcare 11/25/2024 Travel 11/24/2024 11:00 AM CDT Clinical Support [facility] [address] [place] [phone] Taqueria Gresham MD Cervical cancer, FIGO stage IIB (HCC) (Primary Dx); Diarrhea, unspecified type Discharge Disposition: Discharged to home or Selfcare 11/24/2024 10:00 AM CDT Clinical Support [facility] [address] [place] [address] Taqueria Gresham MD Cervical cancer, FIGO stage IIB (HCC) Discharge Disposition: Discharged to home or Selfcare 11/24/2024 Travel 11/23/2024 10:00 AM CDT Clinical Support [facility] [address] [place] [phone] Malvin Estrada MD Diarrhea, unspecified type (Primary Dx) Discharge Disposition: Discharged to home or Selfcare 11/23/2024 10:00 AM CDT Clinical Support [facility] [address] [place] [address] Taqueria Gresham MD Discharge Disposition: Discharged to home or Selfcare 11/23/2024 9:15 AM CDT Office Visit [facility] [address] [place] [address] Malvin Estrada MD Baxley, Brandy M, APRN, CUSTOMS VERIFIER Cervical cancer, FIGO stage IIB (HCC) (Primary Dx); Neuralgic pain; Diarrhea, unspecified type Discharge Disposition: Discharged to home or Selfcare 11/23/2024 Travel 11/22/2024 10:00 AM CDT Clinical Support [facility] [address] [place] [phone] Taqueria Gresham MD Discharge Disposition: Discharged to home or Selfcare 11/22/2024 Travel 11/21/2024 10:15 AM CDT Office Visit [facility] [address] [place] [phone] Taqueria Gresham MD Encounter for radiotherapy (Primary Dx); Patient on combined chemotherapy and radiation; Cervical cancer, FIGO stage IIB (HCC); Loose stools Discharge Disposition: Discharged to home or Selfcare 11/21/2024 10:00 AM CDT Clinical Support [facility] [address] [place] [phone] Taqueria Gresham MD Discharge Disposition: Discharged to home or Selfcare 11/21/2024 9:00 AM CDT Clinical Support [facility] [address] [place] [phone] Malvin Estrada MD Cervical cancer, FIGO stage IIB (HCC) (Primary Dx) Discharge Disposition: Discharged to home or Selfcare 11/21/2024 Travel 11/19/2024 Travel 11/18/2024 10:00 AM CDT Clinical Support [facility] [address] [place] [phone] Taqueria Gresham MD Discharge Disposition: Discharged to home or Selfcare 11/18/2024 Travel 11/17/2024 10:00 AM CDT Clinical Support [facility] [address] [place] [phone] Taqueria Gresham MD Discharge Disposition: Discharged to home or Selfcare 11/17/2024 Travel 11/16/2024 10:00 AM CDT Clinical Support [facility] [address] [place] [phone] Taqueria Gresham MD Discharge Disposition: Discharged to home or Selfcare 11/16/2024 Travel 11/15/2024 10:00 AM CDT Clinical Support [facility] [address] [place] [phone] Taqueria Gresham MD Discharge Disposition: Discharged to home or Selfcare 11/15/2024 9:00 AM CDT Clinical Support [facility] [address] [place] [phone] Malvin Estrada MD Cervical cancer, FIGO stage IB (HCC) (Primary Dx); Cervical cancer, FIGO stage IIB (HCC) Discharge Disposition: Discharged to home or Selfcare 11/15/2024 Travel 11/14/2024 10:15 AM CDT Office Visit [facility] [address] [place] [phone] Taqueria Gresham MD Encounter for radiotherapy (Primary Dx); Patient on combined chemotherapy and radiation; Cervical cancer, FIGO stage IIB (HCC) Discharge Disposition: Discharged to home or Selfcare 11/14/2024 10:00 AM CDT Clinical Support [facility] [address] [place] [phone] Taqueria Gresham MD Discharge Disposition: Discharged to home or Selfcare 11/14/2024 Travel 11/13/2024 Travel 11/12/2024 Travel 11/11/2024 10:00 AM CDT Clinical Support [facility] Oncology Services [address] [place] [phone] Taqueria Gresham MD Discharge Disposition: Discharged to home or Selfcare 11/11/2024 Travel 11/10/2024 10:00 AM CDT Clinical Support [facility] [address] [place] [phone] Taqueria Gresham MD Discharge Disposition: Discharged to home or Selfcare 11/10/2024 Travel 11/09/2024 10:00 AM CDT Clinical Support [facility] [address] [place] [phone] Taqueria Gresham MD Discharge Disposition: Discharged to home or Selfcare 11/09/2024 Travel 11/08/2024 10:15 AM CDT Office Visit [facility] [address] [place] [phone] Taqueria Gresham MD Encounter for radiotherapy (Primary Dx); Patient on combined chemotherapy and radiation; Cervical cancer, FIGO stage IIB (HCC); Vagina bleeding Discharge Disposition: Discharged to home or Selfcare 11/08/2024 10:00 AM CDT Clinical Support [facility] [address] [place] [phone] Taqueria Gresham MD Discharge Disposition: Discharged to home or Selfcare 11/08/2024 9:40 AM CDT Office Visit [facility] [address] [place] [phone] Malvin Estrada MD 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 (HCC) (Primary Dx); Controlled type 2 diabetes mellitus without complication, with long-term current use of insulin; Chemotherapy induced diarrhea; Cervical cancer, FIGO stage IIB (HCC); Neuralgic pain Discharge Disposition: Discharged to home or Selfcare 11/08/2024 9:00 AM CDT Clinical Support [facility] [address] [place] [address] Malvin Estrada MD Cervical cancer, FIGO stage IIB (HCC) (Primary Dx) Discharge Disposition: Discharged to home or Selfcare 11/08/2024 Travel 11/07/2024 Travel 11/06/2024 Travel 11/04/2024 10:00 AM CDT Clinical Support [facility] [address] [place] [phone] Taqueria Gresham MD Discharge Disposition: Discharged to home or Selfcare 11/04/2024 Travel 11/03/2024 10:00 AM CDT Clinical Support [facility] [address] [place] [address] Taqueria Gresham MD Discharge Disposition: Discharged to home or Selfcare 11/03/2024 Travel 11/02/2024 10:00 AM CDT Clinical Support [facility] [address] [place] [address] Taqueria Gresham MD Discharge Disposition: Discharged to home or Selfcare 11/02/2024 Documentation Only [facility] [address] [place] [address] Taqueria Gresham MD 11/02/2024 Travel 11/01/2024 10:00 AM CDT Clinical Support [facility] [address] [place] [phone] Taqueria Gresham MD Discharge Disposition: Discharged to home or Selfcare 11/01/2024 Travel 10/31/2024 10:30 AM CDT Office Visit [facility] [address] [place] [address] PieTaqueria fuller MD Butler, David Ferrell, MD Cervical cancer, FIGO stage IB (HCC) (Primary Dx); 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 (HCC) Discharge Disposition: Discharged to home or Selfcare 10/31/2024 10:30 AM CDT Clinical Support [facility] [address] [place] [address] Malvin Estrada MD Cervical cancer, FIGO stage IIB (HCC) (Primary Dx) Discharge Disposition: Discharged to home or Selfcare 10/31/2024 10:00 AM CDT Clinical Support [facility] [address] [place] [address] Taqueria Gresham MD Butler, David Ferrell, MD Cervical cancer, FIGO stage IB (HCC) (Primary Dx); 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 (HCC) Discharge Disposition: Discharged to home or Selfcare 10/31/2024 8:15 AM CDT Office Visit [facility] [address] [place] [address] Bryanna Smith APRN, CNP Cervical cancer, FIGO stage IIB (HCC) (Primary Dx) Discharge Disposition: Discharged to home or Selfcare 10/31/2024 Travel 10/30/2024 Travel 10/29/2024 Travel 10/28/2024 Non-Scheduled Office Visit [facility] [address] [place] [address] Taqueria Gresham MD Cervical cancer, FIGO stage IIB (HCC) (Primary Dx) 10/24/2024 Telephone [facility] [address] [place] [address] Malvin Estrada MD 10/21/2024 Documentation Only [facility] [address] [place] [phone] Taqueria Gresham MD 10/19/2024 10:15 AM CDT Ancillary Procedure [facility] [address] [place] [address] Taqueria Gresham MD Encounter for radiotherapy (Primary Dx); Cervical cancer, FIGO stage IB (HCC); Status post MICKI-BSO Discharge Disposition: Discharged to home or Selfcare 10/17/2024 12:21 PM CDT - 10/17/2024 11:59 PM CDT Hospital Encounter [facility] MRI [address] [place] [address] Taqueria Gresham MD Discharge Disposition: Discharged to home or Selfcare 10/17/2024 Travel 10/15/2024 Travel 10/12/2024 9:30 AM CDT Initial Consult [facility] [address] [place] [address] Taqueria Gresham MD Cervical cancer, FIGO stage IB (HCC) (Primary Dx) Discharge Disposition: Discharged to home or Selfcare 10/12/2024 Travel 10/11/2024 11:31 AM CDT - 10/11/2024 11:59 PM CDT Hospital Encounter [facility] [address] [place] [address] Provider, Not On File Discharge Disposition: Discharged to home or Selfcare 10/11/2024 Travel 10/10/2024 12:40 PM CDT Lab [facility] [address] [place] [address] Malvin Estrada MD 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 (HCC) (Primary Dx); Controlled type 2 diabetes mellitus without complication, with long-term current use of insulin Discharge Disposition: Discharged to home or Selfcare 10/10/2024 10:40 AM CDT Office Visit [facility] [address] [place] [address] Malvin Estrada MD Malignant neoplasm of overlapping [...] Description 01/02/2025 8:15 AM CDT Office Visit [facility] [address] [place] [address] Malvin Estrada MD [address] [place] [address] Bryanna Smith, PARTS DESIGNER, CUSTOMS VERIFIER [address] [place] [address] Discharge Disposition: Discharged to home or Selfcare 01/02/2025 9:00 AM CDT Lab [facility] [address] [place] [address] Malvin Estrada MD [address] [place] [address] Discharge Disposition: Discharged to home or Selfcare 03/14/2025 9:30 AM CDT Office Visit [facility] [address] [place] [address] Taqueria Gresham MD [address] [place] [address] Discharge Disposition: Discharged to home or Selfcare [...] BY ABNORMAL RESULTS (12/12/2024 9:43 AM CDT) SPECIFIC GRAVITY 1.010 1.003 - 1.030 12/12/2024 10:11 AM CDT [facility] URINE PH 6.5 5.0 - 9.0 12/12/2024 10:11 AM CDT [facility] WBC ESTERASE 25 /ul(A) Negative 12/12/2024 10:11 AM CDT [facility] NITRITE Negative Negative 12/12/2024 10:11 AM CDT [facility] PROTEIN, RANDOM URINE 500 mg/dL(A) Negative 12/12/2024 10:11 AM CDT [facility] URINE GLUCOSE, QUAL Negative Negative 12/12/2024 10:11 AM CDT [facility] URINE KETONES 15 mg/dL(A) Negative 12/12/2024 10:11 AM CDT [facility] UROBILINOGEN Normal Normal mg/dL 12/12/2024 10:11 AM CDT [facility] URINE BLOOD 150 /uL(A) Negative edbbie/ul 12/12/2024 10:11 AM CDT [facility] URINALYSIS COLOR Yellow 12/13/19 10:11 AM CDT [facility] URINALYSIS CLARITY Very Cloudy 12/12/2024 10:11 AM CDT [facility] WBC (Urine) 51-150(A) Negative, 0-5 /hpf 12/12/2024 10:11 AM CDT [facility] URINE RBC'S 51-150(A) Negative, 0-2 /hpf 12/12/2024 10:11 AM CDT [facility] EPITHELIAL CELLS Moderate amount /lpf 12/12/2024 10:11 AM CDT [facility] BACTERIA, URINE Few(A) Negative /hpf 12/12/2024 10:11 AM CDT [facility] Urine URINE SPECIMEN OBTAINED BY CLEAN CATCH PROCEDURE / Unknown Non-Phlebotomy Collection / Unknown 12/12/2024 9:43 AM CDT 12/12/2024 9:43 AM CDT us Bryanna Smith APRN, CUSTOMS VERIFIER URINE ORDERABLES Final Result [facility] [address] [place] [address] * CULTURE, URINE (12/12/2024 9:43 AM CDT) CULTURE RESULTS GROUP B STREPTOCOCCUS 12/14/2024 8:58 AM CDT [facility] CULTURE RESULTS Also mixed growth of distal urethral contaminants 12/14/2024 8:58 AM CDT [facility] Urine URINE SPECIMEN OBTAINED BY CLEAN CATCH PROCEDURE / Unknown Non-Phlebotomy Collection / Unknown 12/12/2024 9:43 AM CDT 12/12/2024 9:43 AM CDT Narrative Organism Antibiotic Method Susceptibility Streptococcus agalactiae Ampicillin [facility] IIB <=0.25 mcg/ml: Susceptible Streptococcus agalactiae Benzylpenicillin [facility] I IB <=0.12 mcg/ml: Susceptible Streptococcus agalactiae Levofloxacin [facility] IIB 1 mcg/ml: Susceptible Streptococcus agalactiae Vancomycin [facility] IIB <=0.5 mcg/ml: Susceptible us Bryanna Smith APRN, CUSTOMS VERIFIER MICROBIOLOGY - GENERAL ORDERABLES Final Result [facility] [address] [place] [address], * (ABNORMAL) CBC WITH AUTO DIFFERENTIAL (12/12/2024 8:36 AM CDT) Only the most recent of9 resultswithin the time period is included. WBC 1.92(L) 4.00 - 12.00 10(3)/mcL 12/12/2024 9:06 AM CDT [facility] RBC 3.18(L) 3.80 - 5.30 10(6)/mcL 12/12/2024 9:06 AM CDT [facility] HEMOGLOBIN (HGB) 8.8(L) 12.0 - 15.8 g/dL 12/12/2024 9:06 AM CDT [facility] HEMATOCRIT (HCT) 26.3(L) 36.0 - 47.0 % 12/12/2024 9:06 AM CDT [facility] MCV 82.7 82.0 - 96.0 fL 12/12/2024 9:06 AM CDT [facility] MCH 27.7 26.0 - 34.0 pg 12/12/2024 9:06 AM CDT [facility] MCHC 33.5 31.0 - 36.0 g/dL 12/12/2024 9:06 AM CDT [facility] PLATELET COUNT 94(L) 140 - 440 10(3)/mcL 12/12/2024 9:06 AM CDT [facility] RDW 14.8 11.8 - 15.5 % 12/12/2024 9:06 AM CDT [facility] MPV 8.7(L) 9.7 - 12.4 fL 12/12/2024 9:06 AM CDT [facility] NEUTROPHILS 70.3 47.0 - 73.0 % 12/12/2024 9:06 AM CDT [facility] LYMPHOCYTES 5.7(L) 18.0 - 42.0 % 12/12/2024 9:06 AM CDT [facility] MONOCYTES 14.6(H) 4.0 - 12.0 % 12/12/2024 9:06 AM CDT [facility] EOSINOPHILS 7.8(H) 0.0 - 5.0 % 12/12/2024 9:06 AM CDT [facility] BASOPHILS 1.6(H) 0.0 - 1.0 % 12/12/2024 9:06 AM [facility] IMMATURE GRANULOCYTE 0.0 0.0 - 0.4 % 12/12/2024 9:06 AM CDT [facility] Comment:Immature Granulocyte s includes Metamyelocytes, Myelocytes, and Promyelocytes. ABSOLUTE NEUTROPHILS 1.35(L) 1.60 - 7.70 10(3)/mcL 12/12/2024 9:06 AM [facility] ABSOLUTE LYMPHOCYTES 0.11(L) 1.30 - 3.20 10(3)/mcL 12/12/2024 9:06 AM [facility] ABSOLUTE MONOCYTES 0.28 0.20 - 1.00 10(3)/[facility] 12/12/2024 9:06 AM [facility] ABSOLUTE EOSINOPHIL 0.15 0.00 - 0.40 10(3)/mcL 12/12/2024 9:06 AM T [facility] ABSOLUTE BASOPHILS 0.03 0.00 - 0.10 10(3)/[facility] 12/12/2024 9:06 AM [facility] ABSOLUTE IMMATURE GRANULOCYTE 0.00 0.00 - 0.03 10 (3) mcL. 12/12/2024 9:06 AM CDT [facility] NRBC PER 100 WBC 0 12/13/19 9:06 AM CDT [facility] RESULTS ARE CONSISTENT WITH PERIPHERAL SMEAR REVIEW Yes 12/12/2024 9:06 AM CDT [facility] Blood Venipuncture / Unknown 12/12/2024 8:36 AM CDT 12/12/2024 8:36 AM CDT Malvin Estrada MD HEMATOLOGY ORDERABLES Fi nal Result Performing Organization Address City/[facility] Co de Phone Number [facility] [address] [place] [address] * (ABNORMAL) MAGNESIUM (MG) (12/12/2024 8:36 AM CDT) Only the most recent of6 resultswithin the time period is included. MAGNESIUM 1.4(L) 1.6 - 2.6 mg/dL 12/12/2024 9:13 AM CDT [facility] Blood Venipuncture / Unknown 12/12/2024 8:36 AM CDT 12/12/2024 8:36 AM CDT Malvin Estrada MD CHEMISTRY ORDERABLES Fin al Result Performing Organization Address [facility] Co de Phone Number [facility] [address] [place] [address] * (ABNORMAL) CMP (COMPREHENSIVE METABOLIC PANEL) (12/12/2024 8:36 AM CDT) Only the most recent of9 resultswithin the time period is included. SODIUM 134(L) 136 - 145 mmol/L 12/12/2024 9:13 AM CDT [facility] POTASSIUM 3.9 3.5 - 5.1 mmol/L 12/12/2024 9:13 AM CDT [facility] CHLORIDE 100 98 - 107 mmol/L 12/12/2024 9:13 AM CDT [facility] CO2, VENOUS 24 22 - 30 mmol/L 12/12/2024 9:13 AM T [facility] ANION GAP 13.9 <18.0 mmol/L 12/12/2024 9:13 AM T [facility] GLUCOSE 104(H) 70 - 99 mg/dL 12/12/2024 9:13 AM CDT [facility] BUN 13 10 - 20 mg/dL 12/12/2024 9:13 AM T [facility] CREATININE, BLOOD 1.12(H) 0.60 - 1.00 mg/dL 12/12/2024 9:13 AM T [facility] BUN/CREATININE RATIO 12 12 - 20 ratio 12/12/2024 9:13 AM [facility] TOTAL PROTEIN 6.3 6.0 - 8.0 g/dL 12/12/2024 9:13 AM T [facility] ALBUMIN 3.7 3.5 - 5.0 g/dL 12/12/2024 9:13 AM [facility] A/G RATIO 1.4 1.0 - 2.2 12/12/2024 9:13 AM [facility] CALCIUM 8.6(L) 8.7 - 10.5 mg/dL 12/12/2024 9:13 AM [facility] T BILI 0.4 0.2 - 1.2 mg/dL 12/12/2024 9:13 AM T [facility] SGOT (AST) 17 <43 U/L 12/12/2024 9:13 AM T [facility] SGPT (ALT) <6 <56 U/L 12/12/2024 9:13 AM [facility] ALKALINE PHOSPHATASE 36(L) 40 - 150 U/L 12/12/2024 9:13 AM [facility] IS THE PATIENT REQUIRED TO BE FASTING? No 12/12/2024 9:13 AM T [facility] GFR, ESTIMATED 55(L) >=60 12/12/2024 9:13 AM CDT [facility] Comment: Creatinine Clearance is the preferred criteria for selecting drug dose adjustments in renally impaired patients. The GFR is provided as additional pertinent clinical information. GFR is reported in mL/min/1.73 sq m. Calculation based on the Chronic Kidney Disease Epidemiology Collaboration (CKD- EPI) equation refit without adjustment for race. GFR, EST. 59(L) >=60 12/12/ 025 9:13 AM CDT [facility] GFR, EST. NONAFRICAN 49(L) >=60 12/12/2024 9:13 AM CDT [facility] Blood Venipuncture / Unknown 12/12/2024 8:36 AM CDT 12/12/2024 8:36 AM CDT Malvin Estrada MD CHEMISTRY ORDERABLES Fin al Result [facility] [place] [address] * RAD ONC ARIA COURSE SUMMARY (12/07/2024 [...] ORDERABLES F inal Result Performing Organization Address [facility] de Phone Number ARIA RO MODEL [address] [place] [address] * RAD ONC ARIA SESSION SUMMARY (12/05/2024 [...] ORDERABLES F inal Result Performing Organization Address [facility] Co de Phone Number ARIA RO MODEL [address] [place] [address] * RAD ONC ARIA SESSION SUMMARY (12/02/2024 [...] ORDERABLES F inal Result Performing Organization Address [facility] Co de Phone Number ARIA RO MODEL [address] [place] [address] * RAD ONC ARIA SESSION SUMMARY (12/01/2024 [...] F inal Result ARIA RO MODEL [address] [place] [address] * RAD ONC ARIA SESSION SUMMARY (11/30/2024 [...] F inal Result ARIA RO MODEL [address] [place] [address] * RAD ONC ARIA SESSION SUMMARY (11/29/2024 [...] ORDERABLES F inal Result Performing Organization Address [facility] Co de Phone Number ARIA RO MODEL [address] [place] [address] * RAD ONC ARIA SESSION SUMMARY (11/28/2024 [...] ORDERABLES F inal Result Performing Organization Address [facility] Co de Phone Number ARIA RO MODEL [address] [place] [address] * RAD ONC ARIA SESSION SUMMARY (11/25/2024 [...] F inal Result ARIA [address] [place] [address] * C. DIFF BY PCR (11/25/2024 10:11 AM CDT) C DIFF TOXIN DNA BY PCR Negative Negative, Invalid 11/25/2024 11:19 AM CDT [facility] Other STOOL SPECIMEN / Unknown Non-Phlebotomy Collection / Unknown 11/25/2024 10:11 AM CDT 11/25/2024 10:11 AM CDT us Bryanna Smith PARTS DESIGNER, CUSTOMS VERIFIER MICROBIOLOGY - GENERAL ORDERABLES Final Result [facility] [place] [address] * RAD ONC ARIA SESSION SUMMARY (11/24/2024 [...] F inal Result ARIA RO MODEL [address] [place] [address] * RAD ONC ARIA SESSION SUMMARY (11/23/2024 [...] ORDERABLES F inal Result Performing Organization Address [facility] Co de Phone Number ARIA RO MODEL [address] [place] [address] * RAD ONC ARIA SESSION SUMMARY (11/22/2024 [...] ORDERABLES F inal Result Performing Organization Address [facility] Co de Phone Number ARIA RO MODEL [address] [place] [address] * RAD ONC ARIA SESSION SUMMARY (11/21/2024 [...] ORDERABLES F inal Result Performing Organization Address [facility] Co de Phone Number ARIA RO MODEL [address] [place] [address] * RAD ONC ARIA SESSION SUMMARY (11/18/2024 [...] ORDERABLES F inal Result Performing Organization Address City/State/[facility] de Phone Number ARIA RO MODEL [address] [place] [address] * RAD ONC ARIA SESSION SUMMARY (11/17/2024 [...] ORDERABLES F inal Result Performing Organization Address [facility] de Phone Number ARIA RO MODEL [address] [place] [address] * RAD ONC ARIA SESSION SUMMARY (11/16/2024 [...] ORDERABLES F inal Result Performing Organization Address [facility] Co de Phone Number ARIA RO MODEL [address] [place] [address] * RAD ONC ARIA SESSION SUMMARY (11/15/2024 [...] ORDERABLES F inal Result Performing Organization Address [facility] Co de Phone Number ARIA RO MODEL [address] [place] [address] * RAD ONC ARIA SESSION SUMMARY (11/14/2024 [...] F inal Result ARIA [address] MODEL [address] [place] [address] * RAD ONC ARIA SESSION SUMMARY (11/11/2024 [...] ORDERABLES F inal Result Performing Organization Address [facility] de Phone Number ARIA RO MODEL [address] [place] [address] * RAD ONC ARIA SESSION SUMMARY (11/10/2024 [...] ORDERABLES F inal Result Performing Organization Address [facility] Co de Phone Number ARIA RO MODEL [address] [place] [address] * RAD ONC ARIA SESSION SUMMARY (11/09/2024 [...] ORDERABLES F inal Result Performing Organization Address City/State/[facility] Co de Phone Number ARIA RO MODEL [address] [place] [address] * RAD ONC ARIA SESSION SUMMARY (11/08/2024 [...] ORDERABLES F inal Result Performing Organization Address [facility] Co de Phone Number ARIA RO MODEL [address] [place] [address] * RAD ONC ARIA SESSION SUMMARY (11/04/2024 [...] ORDERABLES F inal Result Performing Organization Address [facility] Co de Phone Number ARIA RO MODEL [address] [place] [address] * RAD ONC ARIA SESSION SUMMARY (11/03/2024 [...] ORDERABLES F inal Result Performing Organization Address [facility] Co de Phone Number ARIA RO MODEL [address] [place] [address] * RAD ONC ARIA SESSION SUMMARY (11/02/2024 [...] ORDERABLES F inal Result Performing Organization Address [facility] Co de Phone Number ARIA RO MODEL [address] [place] [address] * RAD ONC ARIA SESSION SUMMARY (11/01/2024 [...] F inal Result [address] [address] [place] [address] * RAD ONC ARIA SESSION SUMMARY (10/31/2024 [...] F inal Result ARI[facility] [address] MODEL [address] [place] [address] * MRI PELVIS W/WO CONTRAST (10/17/2024 1:27 [...] Antonio Lopez M.D. NS: NS Report ID: [id number] Reading Location: [id number] Procedure Note José Antonio Lopez MD - [...] Antonio Lopez M.D. NS: NS Report ID: [id number] Reading Location: [id number] IMPRESSION: Heterogeneous cervical mass with invasion of the upper 2/3 of the vagina and probable early parametrial invasion at multiple locations as described above. Constellation of findings compatible with FIGO stage IIB cervical cancer. Recommend correlation with tissue sampling. No pathologically enlarged lymphadenopathy. Taqueria Gresham MD IMG MR ORDERABLES Final [...] 156 mcg/dL 10/10/2024 1:40 PM CDT [facility] TRANSFERRIN 285 173 - 360 mg/dL 10/10/2024 1:40 PM CDT [facility] TIBC, CALCULATED 356 265 - 497 mcg/dL 10/10/2024 1:40 PM CDT [facility] % SATURATION * 22 15 - 62 % 10/10/2024 1:40 PM CDT [facility] Blood Venipuncture / Unknown 10/10/2024 12:40 PM CDT 10/10/2024 12:48 PM CDT Malvin Estrada MD CHEMISTRY ORDERABLES Fin al Result [facility] [address] [place] [address] * FERRITIN (10/10/2024 12:40 PM CDT) FERRITIN 109 5 - 204 ng/mL 10/10/2024 1:56 PM CDT [facility] Blood Venipuncture / Unknown 10/10/2024 12:40 PM CDT 10/10/2024 12:48 PM CDT Malvin Estrada MD CHEMISTRY ORDERABLES Fin al Result [facility] [place] [address] * GYNECOLOGIC ONCOLOGY SURGERY PROCEDURE (09/19/2024 12:00 AM CDT) 09/19/2024 us Provider Scan GEN ORDERS Final Result SCAN * PATHOLOGY SURGICAL (09/19/2024 12:00 AM CDT) 09/19/2024 us Provider Scan PATHOLOGY/CYTOLOGY ORDERABLES Fi nal Result SCAN from Last 3 Months Insurance [id number] Care Teams Senior Oracle Pl Sql Developer Relationship Specialty Start Date End Date Diann Crain, PARTS DESIGNER, CUSTOMS VERIFIER [address] [place] [address] PCP - General Advanced Practice Nurse 10/10/24 Antonia Rodriguez MD [address] [address] Consulting Physician Gynecologic Oncology 10/11/24 Malvin Estrada MD [address] [place] [address] Consulting Physician Medical Oncology 10/11/24 Taqueria Gresham MD [address] [place] [address] Consulting Physician Radiation Oncology 10/11/24 Montana Lakhani MD [address] [place] [address] Consulting Physician Radiation Oncology 10/12/24
--- OUTSIDE RECORDS SUMMARY | 2024-12-19 11:11 | XMS_ITS | Clinical Summary ---
Author Organization [facility] [employer] Address [address] [place] [address] Care Team Providers Care Supervisor Floor Assembly Name Role Phone Diann Crain Edison SAMPLE WASHER-SENIOR SOUS CHEF Primary Care Provid er Source Comments [facility] [employer],non-owned Affiliates and Associated Physician Practices is amultiple site organization consisting of ambulatory clinics and hospital sitesin [place], [place], [place] and [place]. This disclosure is being madepursuant to the Care Everywhere program and may not contain all information available regarding this patient. Last updated 18.[facility] [employer] Allergies Active Allergy Reactions Criticality Noted Date [...] Telephone [facility] - Rad/Onc [address] [place] [address] Argentina Rosenthal RN Appointment 12/12/2024 Travel 12/02/2024 Telephone [facility] - Rad/Onc [address] [place] [address] Argentina Rosenthal RN Appointment 11/16/2024 1:00 PM CDT - 12/18/2024 11:59 PM CDT Hospital Encounter [facility] - Radiation Oncology [address] [place] [address] [place] Lakhani MD Discharge Disposition: Home or Self Care 11/16/2024 1:00 PM CDT Office Visit [facility] - Rad/Onc [address] [place] [address] Montana Lakhani MD 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 (HCC) (Primary Dx) 11/16/2024 Travel 11/04/2024 Travel 10/26/2024 Telephone [facility] - Rad/Onc [address] [place] [address] Argentina Rosenthal RN Follow-up 10/26/2024 Orders Only [facility] - MANAGER DEVELOPMENT [address] [place] [address] Antonia Rodriguez MD Malignant neoplasm of cervix, unspecified site (HCC) 10/26/2024 Telephone [facility] - Rad/Onc [address] [place] [phone] Argentina Rosenthal, RN Appointment 10/12/2024 Telephone [facility] - MANAGER DEVELOPMENT [address] [place] [address] Osmar Pineda, MA Forms/questionnaire s 09/30/2024 Orders Only [facility] - MANAGER DEVELOPMENT [address] [place] [address] Antonia Rodriguez MD Endometrial cancer (HCC) 09/30/2024 Telephone [facility] - MANAGER DEVELOPMENT [address] [place] [address] Antonia Rodriguez MD Results 09/30/2024 Results Follow-Up [facility] - MANAGER DEVELOPMENT [address] [place] [address] Antonia Rodriguez MD 09/28/2024 12:10 PM CDT - 09/28/2024 11:59 PM CDT Hospital Encounter [facility] Health Imaging Services - PET [address] [place] [address] Antonia Rodriguez MD Discharge Disposition: Home or Self Care 09/22/2024 Travel 09/22/2024 Orders Only [facility] - MANAGER DEVELOPMENT [address] [place] [address] Antonia Rodriguez MD Malignant neoplasm of cervix, unspecified site (HCC) 09/19/2024 12:15 PM CDT Anesthesia [facility] [address] [place] [address] Wally Serrano MD Starrett, Cassie R, SAMPLE WASHER-SEMICONDUCTOR WAFERS MARKER 09/19/2024 12:00 PM CDT - 09/19/2024 1:08 PM CDT Surgery [facility] [address] [place] [address] Antonia Rodriguez MD EXAM UNDER ANESTHESIA, WITH BIOPSIES 09/19/2024 10:00 AM CDT - 09/19/2024 2:55 PM CDT Hospital Encounter [facility] [address] [place] [address] Antonia Rodriguez MD Surgery General Discharge Disposition: [...] on file Legal Sex Female 1:25 PM MANAGER INPATIENT Gender Identity Not on file Sexual Orientation [...] Description 12/20/2024 7:15 AM CDT Hospital Encounter [facility] [address] [place] [address] Montana Villa MD [address] [facility] [address] [place] [address] Surgery General 12/20/2024 7:15 AM CDT - 12/20/2024 8:45 AM CDT Surgery [facility] [address] [place] [address] Montana Villa MD [address] [address] PLACEMENT OF TANDEM AND RING 12/20/2024 9:30 AM CDT Office Visit [facility] - Rad/Onc [address] [place] [phone] Montana Lakhani MD [address] [place] [address] 12/22/2024 7:15 AM CDT Hospital Encounter [facility] [address] [place] [address] [place] [address] [place] [phone] Surgery General 12/22/2024 7:15 AM CDT - 12/22/2024 8:45 AM CDT Surgery [facility] [address] [place] [address] [place] [address] [place] [phone] PLACEMENT OF TANDEM AND RING 12/22/2024 9:30 AM CDT Office Visit [facility] - Rad/Onc [address] [place] [phone] Montana Lakhani MD [address] [place] [phone] 12/27/2024 7:15 AM CDT Hospital Encounter [facility] [address] [place] [address] Montana Villa MD [address] [place] [address] Surgery General 12/27/2024 7:15 AM CDT - 12/27/2024 8:15 AM CDT Surgery [facility] [address] [place] [address] Montana Villa MD [address] [place] [address] PLACEMENT OF TANDEM AND RINGS 12/27/2024 9:30 AM CDT Office Visit [facility] - Rad/Onc [address] [place] [phone] Montana Lakhani MD [address] [place] [address] 01/03/2025 7:15 AM CDT Hospital Encounter [facility] [address] [place] [address] Saran Troy MD [address] [place] [address] Surgery General 01/03/2025 7:15 AM CDT - 01/03/2025 8:24 AM CDT Surgery [facility] [address] [place] [address] Saran Troy MD [address] [place] [address] PLACEMENT OF TANDEM AND RING 01/03/2025 9:30 AM CDT Office Visit [facility] - Rad/Onc [address] [place] [phone] Montana Lakhani MD [address] [place] [address] 01/05/2025 9:30 AM CDT Office Visit [facility] - Rad/Onc [address] [place] [address] Montana Lakhani MD [address] [place] [address] Scheduled Procedures Name Priority Associated [...] Routine 09/19/2024 12:40 PM CDT Diagnosis unknown DC PELVIC EXAMINATION W ANESTH 09/19/2024 11:50 AM [...] - 99 mg/dL 09/19/2024 1:20 PM CDT [facility] Specimen Type Cap Fingerstick 2024 1:20 PM CDT [facility] Blood BLOOD SPECIMEN / Unknown 09/19/2024 1:14 PM CDT 09/19/2024 1:20 PM CDT Antonia Rodriguez MD LAB - POINT OF CARE ORDERA BLES Final Result [facility] [address] [place] [address] * PATHOLOGY TISSUE EXAM (STL) (09/19/2024 12:40 PM CDT) Case Report Surgical Pathology Report Case: [id number] Authorizing Provider: Antonia Rodriguez MD Collected: 09/19/2024 12:40 PM Ordering Location: [facility] Received: 09/19/2024 12:44 PM Pathologist: Francy Mock MD Specimen: Cervix Biopsy, Cervical biopsy 09/21/2024 9:07 AM CDT [facility] Final Diagnosis Uterus, cervix, biopsy (including FSA1) - Invasive carcinoma with squamous and glandular differentiation, [id number] 09/21/2024 9:07 AM [facility] at 0907 CDT Clinical History The patient is a 63-year-old woman with a 5 cm cervical mass. Operative procedure: exam under anesthesia with biopsies. 09/21/2024 9:07 AM CDT [facility] Frozen Section The frozen section diagnosis is as rendered below. FSA1: Cervix, biopsy - High-grade squamous intraepithelial lesion and poorly differentiated carcinoma; areas with glandular features; adequate tissue for further analysis (for permanents) The specimen was received at 1243 on 09/19/24 and was reported to Dr. Rodriguez at [address] Mock. 09/21/2024 9:07 AM CDT [facility] Gross Description The specimens and entirely patient's name and date of . Received fresh for frozen, specimen A, cervical biopsy is an aggregate pink-murillo soft tissues, 0.5-1.7 cm in greatest dimension and 3 x 2 x 0.5 cm aggregate. A portion is frozen as FSA1. Entirely submitted as follows: A1-frozen section control of FSA1, A2-remaining tissues. LJ 09/21/2024 9:07 AM [facility] Microscopic Description Microscopic examination substantiates the [...] features support the diagnosis. 09/21/2024 9:07 AM [facility] Pathologist Location at [facility] 09/21/2024 9:07 AM [facility] Disclaimer All histochemical and/or immunohistochemical results are interpreted with controls that demonstrate appropriate staining reactions before reporting results. Note on use of immunocytochemistry reagents: This test was developed and its performance characteristic determined by [facility], Department of Laboratory Medicine. It has not [...] be interpreted with caution. 09/21/2024 9:07 AM [facility] Embedded Images 09/21/2024 9:07 AM [facility] Pathology/Cytolo gy CERVICAL BIOPSY SPECIMEN / Unknown 09/19/2024 12:40 PM CDT 09/19/2024 12:44 PM CDT Comment:Pre-op diagnosis: Diagnosis unknown [R69] Antonia Rodriguez MD LAB - PATHOLOGY/CYTOLOGY O RDERABLES Final Result [facility] [address] [place] [address] from Last 3 Months Insurance [employer] Care Teams Supervisor Floor Assembly Relationship Specialty Start Date End Date Diann Crain, SAMPLE WASHER-SENIOR SOUS CHEF [address] [place] [address] PCP - General Nurse Practitioner Family 09/15/24
[2024-12-19 11:14] LABS: Alanine Aminotransferase 12 U/L (6-35); Albumin Level 3.8 g/dL (3.5-5.1); Alkaline Phosphatase 46 U/L (38-126); Anion Gap 11 mmol/L (4-12); Aspartate Amino Transferase 26 U/L (14-36); Bilirubin,Total 0.5 mg/dL (0.2-1.3); Blood Urea Nitrogen 30 mg/dL (7-17); Calcium 8.7 mg/dL (8.4-10.2); Carbon Dioxide 22 mmol/L (22-30); Chloride 93 mmol/L (98-107); Estimated CRCL calculation 28 ml/min; Estimated Glomerular Filt Rate 27; Glucose 112 mg/dL (65-110); Osmolality Calculated 269 mOsm/kg (285-295); Potassium 4.0 mmol/L (3.4-5.0); Sodium 126 mmol/L (137-145); Total Protein 6.4 g/dL (6.3-8.2)
[2024-12-19 11:19] LABS: Band Neutrophils Percent 0 % (0-6); Basophils Absolute Manual 0.07 K/mm3 (0-0.1); Basophils Percent Manual 2 % (0-1); Eosinophils Absolute Manual 0.03 K/mm3 (0.02-0.50); Eosinophils Percent Manual 1 % (1-6); Lymphocytes Absolute Manual 0.66 K/mm3 (1.1-4.5); Lymphocytes Percent Manual 17 % (18-44); Metamyelocytes Percent 2 %; Monocytes Absolute Manual 0.46 K/mm3 (0.1-0.90); Monocytes Percent Manual 12 % (3-9); Myelocytes Percent 4 %; Neutrophils Absolute Manual 2.41 K/mm3 (1.3-6.7); Neutrophils Percent Manual 62 % (46-73); Total Cells Counted 100
[2024-12-19 11:34] LABS: Influenza A QL RT-PCR Negative (Negative); Influenza B QL RT-PCR Negative (Negative); RSV RNA, RT-PCR Negative (Negative); SARS-CoV-2 RNA PCR Negative (Negative)
--- NOTE | 2024-12-19 12:19 | PC.NURSE ---
PATIENT TRIED TO USE BEDPAN FOR TOILETING NEEDS. REQUESTING TO HAVE BEDSIDE COMMODE INSTEAD
[2024-12-19 12:39] LABS: Add Urine Microscopic? YES; Appearance Urine Clear (Clear); Glucose Urine UA Negative (Negative); Leukocyte Esterase Ur 1+ LEU/UL (Negative); Nitrate Urine Negative (Negative); Specific Grav Ur 1.020 (1.010-1.020)
--- NOTE | 2024-12-19 12:55 | ED_ITS ---
HPI - Weakness General Chief complaint: Weakness Stated complaint: weakness Time Seen by Provider: 12/19/24 10:37 Source: patient and family Mode of arrival: wheelchair Limitations: no limitations History of Present Illness HPI Narrative: this is a 64-year-old female with history of cervical cancer and had received cycles of chemotherapy and recently started having generalized weakness and feeling dehydrated has recently been diagnosed with urinary tract infection and finished a course of p.o. antibiotics a few days ago. Patient has some dysuria with no flank pain no hematuria no fever chills no nausea vomiting no diarrhea constipation. MD Complaint: generalized weakness Onset (ago): day(s) Duration: constant Location: generalized Related Data Allergies Allergy/AdvReac Type Severity Reaction Status Date / Time Yeast Allergy Severe Anaphylactic Verified 12/19/24 10:41 Shock amoxicillin Allergy Intermediate unknown Verified 12/19/24 10:41 erythromycin base Allergy Intermediate unknown Verified 12/19/24 10:41 Sulfa (Sulfonamide Allergy Intermediate Unknown Verified 12/19/24 10:41 Antibiotics) Review of Systems 2 Review of Systems: All systems reviewed & are unremarkable except as noted in HPI and below PMFSH Past Medical History Medical History Colon cancer screening Migraines Diabetes History of shingles History of chicken pox Surgical History Surgical History History of incision and drainage 04/18/24 Complex incision and drainage of diabetic left foot abscess. Dr. Dominique H/O oral surgery Social History Social History Smoking status: Never smoker Tobacco type: cigarettes Second hand tobacco smoke exposure: No Alcohol intake: never Alcohol use details: Allergy to beer Substance use: never Substance use type: does not use Do You Feel Safe in your Home?: Yes Lack of Transportation: YES Lack of Food: Never True Current Housing: I Have Housing Concerned About Future Housing: No Difficulty Paying Gas/Electric Bills: No Difficulty Paying for Meds: No Currently Unemployed: No Education: High School Diploma/GED Difficulty w/ Childcare or Family Care: No Living arrangements: alone Spiritual care concerns: No Exam 2 Const: General: healthy appearing and no acute distress Nutritional Appearance: well nourished and thin Orientation/consciousness: patient oriented x3 Limitations: no limitations Eyes: Conjunctivae: conjunctivae normal Neck: Neck: normal visual inspection, no lymphadenopathy and no meningeal signs Chest: Chest palpation & inspection: normal inspection of the chest Resp: Effort & Inspection: normal respiratory effort Auscultation: clear to auscultation bilaterally Cardio: Rate: regular rate Rhythm: regular rhythm GI: GI Palp: Yes Soft to palpation Auscultation: normal bowel sounds : General: Yes bladder normal to palpation Urinary Catheter: Urinary Catheter: patent and draining Back/Spine/Pelvis: Back: no CVA tenderness Skin: General skin exam: normal color Rashes: no rashes Wounds: no wounds Neuro: General: patient oriented x3, moves all extremities, no meningeal signs and no focal motor deficits Extrem: General: normal to inspection and no clubbing, cyanosis or edema Course Course Emergency Course: Patient with EKG that showed a normal sinus rhythm chest x-ray with no acute cardiopulmonary abnormalities white count within normal range patient did have sodium of 126 received IV fluids with normal saline patient states that her symptoms have improved she feels less weak, urinalysis showed that she has urinary tract infection will give a dose of Levaquin by mouth. Vital Signs Vital signs: Vital Signs Temperature 36.4 C L 12/19/24 10:27 Pulse Rate 79 12/19/24 10:27 Respiratory Rate 19 12/19/24 10:27 Blood Pressure 137/75 12/19/24 10:27 Pulse Oximetry 100 12/19/24 10:27 Oxygen Delivery Room Air 12/19/24 10:27 Temperature 36.4 C L 12/19/24 10:27 Pulse Rate 74 12/19/24 11:46 Respiratory Rate 13 12/19/24 11:46 Blood Pressure 172/84 H 12/19/24 11:46 Pulse Oximetry 100 12/19/24 11:46 Oxygen Delivery Room Air 12/19/24 10:27 MDM - Weakness Lab Data 12/19/24 10:49 12/19/24 10:49 Labs: Lab Results 12/19/24 12/19/24 Range/Units 10:44 10:49 WBC 3.9 L (4.8-10.8) K/mm3 RBC 3.40 L (4.20-5.40) M/mm3 Hgb 9.4 L (12.0-15.0) g/dL Hct 26.7 L (35.0-49.0) % MCV 78.5 (78.0-102.0) fL MCH 27.6 (27.0-31.0) pg MCHC 35.2 (32-36) g/dL RDW 15.9 H (11.6-14.4) % Plt Count 213 (150-420) K/mm3 MPV 8.6 L (9.2-11.8) fl Immature Gran % (Auto) Not Reportable Neut % (Auto) Not Reportable Lymph % (Auto) Not Reportable [place] % (Auto) Not Reportable Eos % (Auto) Not Reportable Baso % (Auto) Not Reportable Lymph # (Auto) Not Reportable [place] # (Auto) Not Reportable Eos # (Auto) Not Reportable Baso # (Auto) Not Reportable Abs Immat Gran (auto) Not Reportable Absolute Neuts (auto) Not Reportable Absolute Nucleated RBC Not Reportable Total Counted 100 Neutrophils % (Manual) 62 (46-73) % Band Neutrophils % 0 (0-6) % Lymphocytes % (Manual) 17 L (18-44) % Monocytes % (Manual) 12 H (3-9) % Eosinophils % (Manual) 1 (1-6) % Basophils % (Manual) 2 H (0-1) % Metamyelocytes % 2 % Myelocytes % 4 % Nucleated RBC % Not Reportable Abs Neuts (Manual) 2.41 (1.3-6.7) K/mm3 Abs Lymphs (Manual) 0.66 L (1.1-4.5) K/mm3 Abs Monocytes (Manual) 0.46 (0.1-0.90) K/mm3 Absolute Eos (Manual) 0.03 (0.02-0.50) K/mm3 Abs Basophils (Manual) 0.07 (0-0.1) K/mm3 Platelet Estimate Adequate (Adequate) Schistocytes Not Reportable Sodium 126 L (137-145) mmol/L Potassium 4.0 (3.4-5.0) mmol/L Chloride 93 L (98-107) mmol/L Carbon Dioxide 22 (22-30) mmol/L Anion Gap 11 (4-12) mmol/L BUN 30 H D (7-17) mg/dL Creatinine 1.85 H (0.7-1.0) mg/dL Estim Creat Clear Calc 28 ml/min Estimated GFR 27 L (59 - ) Glucose 112 H (65-110) mg/dL Calculated Osmolality 269 L (285-295) mOsm/kg Calcium 8.7 (8.4-10.2) mg/dL Total Bilirubin 0.5 (0.2-1.3) mg/dL AST 26 (14-36) U/L ALT 12 (6-35) U/L Alkaline Phosphatase 46 (38-126) U/L Total Protein 6.4 (6.3-8.2) g/dL Albumin 3.8 (3.5-5.1) g/dL Urine Color Light yellow (Yellow) Urine Appearance Clear (Clear) Urine pH 6.0 (5.0-8.0) Ur Specific [place] 1.020 (1.010-1.020) Urine Protein 3+ H (Negative) Urine Glucose (UA) Negative (Negative) Urine Ketones 3+ H (Negative) Ur Blood (Man) 2+ H (Negative) Urine Nitrate Negative (Negative) Urine Bilirubin 1+ H (Negative) Urine Urobilinogen 0.2 (0.2-1.0) mg/dL Leukocyte Esterase Rfl 1+ H (Negative) BRANDEN/UL Urine RBC 6-10 H (0-2) /hpf Urine WBC 31-50 H (0-3) /hpf Ur Squamous Epith Cells Rare (Few) /hpf Urine Bacteria Rare (None) /hpf Influenza A (RT-PCR) Negative (Negative) Influenza B (RT-PCR) Negative (Negative) RSV (RT-PCR) Negative (Negative) SARS-CoV-2 RNA (RT-PCR) Negative (Negative) Critical Care Time Critical Care Time Critical Care Time: No Discharge Plan Discharge Clinical Impression: Dehydration, Acute hyponatremia UTI (urinary tract infection) Qualifiers: Urinary tract infection type: site unspecified Hematuria presence: without hematuria Qualified Code(s): N39.0 - Urinary tract infection, site not specified Patient Disposition: Home Condition: Stable Instructions: Antibiotic Form, Urinary Tract Infection in Women (ED), Hyponatremia (ED), Weakness (ED) Additional Instructions: advised patient to take medication as prescribed and follow up with primary within the next 3 to 5 days for further evaluation treatment. Patient Language: Citizen Of [place] Prescriptions: New levofloxacin 500 mg tablet 500 mg PO DAILY 6 Days Qty: 6 0RF No Action (DME) blood-glucose meter Kit See Rx Instructions .Route Qty: 1 0RF Rx Instructions: As directed insulin glargine [Lantus Solostar U-100 Insulin] 100 unit/mL (3 mL) insulin pen 15 unit subcut QPM Qty: 15 3RF (DME) lancets [Acti-Estuardo Lancets] 28 gauge misc See Rx Instructions .Route Qty: 100 3RF Rx Instructions: BID metformin 500 mg tablet extended release 24 hr 500 mg PO BID Qty: 90 5RF pantoprazole 40 mg tablet,delayed release (DR/EC) 40 mg PO QHS Qty: 90 1RF (DME) Blood Glucose Test Strip See Rx Instructions .Route Qty: 50 3RF Rx Instructions: BID insulin lispro 100 unit/mL insulin pen See Rx Instructions subcut TID MDD 30 units Qty: 15 3RF Rx Instructions: SS BS 150-200: 2 units; BS 201-250: 4 units; BS 251-300: 6 units; 301-350: 8 units; 351-400: 10 units metoclopramide HCl [Reglan] 10 mg tablet 10 mg PO Q6H PRN (Reason: nausea and vomiting) Qty: 60 2RF (DME) lancets [On-The-Go Lancets] 30 gauge misc See Rx Instructions .Route Qty: 100 1RF Rx Instructions: ACHS (DME) FreeStyle Kim 3 [place] Misc See Rx Instructions .Route Qty: 1 0RF Rx Instructions: As directed (DME) FreeStyle Kim 3 Sensor Device See Rx Instructions .Route Qty: 6 12RF Rx Instructions: As directed ondansetron 4 mg tablet,disintegrating 4 mg PO Q8H PRN (Reason: nausea and vomiting) Qty: 30 0RF magnesium oxide 400 mg (241.3 mg magnesium) tablet See Rx Instructions .ROUTE .COMPLEX Qty: 120 1RF Dose Instruction: TAKE 1 TABLET BY MOUTH TWICE A DAY Rx Instructions: TAKE 1 TABLET BY MOUTH TWICE A DAY Follow-up/Referrals: Diann Crain NP [Primary Care Provider] - Time of Disposition: 13:01
--- NOTE | 2024-12-21 12:28 | PC.NURSE ---
URINE CLEAN CATCH POSITIVE FOR SINGLE GRAM POSITIVE ORGANISM ISOLATED PT ON LEVAQUIN 500MG DAILY FOR [address] SKYLAR العلي
== END 2024-12-19 13:30 | disposition home or self-care (01) ==
PROVIDERS: Emergency Provider Emergency Medicine; PCP Nurse Practitioner Family
DX: E86.0 Dehydration (principal); E87.1 Hypo-osmolality and hyponatremia; N39.0 Urinary tract infection, site not specified; E11.9 Type 2 diabetes mellitus without complications; Z20.822 Contact with and (suspected) exposure to COVID-19
CPT/HCPCS: 36415; 71045; 80053; 81001; 85025; 87086; 87088; 87637; 93005; 96360; 99284; A9270; J7030

== ENCOUNTER 2025-01-17 14:22 | Emergency (ER) | payer BC, SELFPAY ==
--- OUTSIDE RECORDS SUMMARY | 2025-01-17 14:31 | XMS_ITS ---
Author Organization [facility] Address [address] [place] [address] Phone Care Team Providers Care Factory Machine Computer Operator Name Role Phone Diann Crain BLANKING PRESS OPERATOR, POLICE GUARD Primary Care [facility]ot Antonia Rodriguez MD Unavailable [phone] Malvin Estrada MD Unavailable [phone] Taqueria Gresham MD Unavailable [phone] [place] Lakhani MD Unavailable [phone] Active Problems Problem Noted Date Diagnosed Date [...]
--- OUTSIDE RECORDS SUMMARY | 2025-01-17 14:31 | XMS_ITS | Clinical Summary ---
Author Organization [facility] Address [address] [place] [address] Phone Care Team Providers Care Weaver Apprentice Name Role Phone DavidbeatrisDiann PROJECT LANDSCAPE ARCHITECT, BANKING AND FINANCE INSTRUCTOR Primary Care Provi scot Antonia Rodriguez MD Unavailable [phone] Malvin Estrada MD Unavailable [phone] Taqueria Gresham MD Unavailable [phone] Montana Lakhani MD Unavailable [phone] Allergies Active Allergy Reactions Criticality Noted Date Comments Amoxicillin Rash Low 04/29/2018 Brewers Yeast Anaphylaxis High 04/29/2018 Erythromycin Rash,Swelling 10/10/2024 Sulfa Antibiotics Rash Low 04/29/2018 Medications metFORMIN (GLUCOPHAGE-XR ) 500 MG TABLET SR 24 HR Take 500 mg by mouth 2 times daily. 09/07/19 25 Active magnesium oxide (MAG-OX) 400 MG Tablet Take 400 mg by mouth 2 times daily. 07/27/19 25 Active insulin glargine-yfgn 100 UNIT/ML Solution Pen-injector 15 Units by Subcutaneous route nightly. 07/21/19 25 Active Insulin Lispro, 1 Unit Dial, 100 UNIT/ML Solution Pen-injector 15 Units by Subcutaneous route as needed for High Blood Sugar (No more than 30 units per day). 07/14/19 25 Active ondansetron (ZOFRAN-ODT) 8 MG TABLET DISPERSIBLEInd ications:Cervi dawit cancer, FIGO stage IIB (HCC) Take 1 Tablet by mouth every 8 hours as needed for Nausea - 1st line. Take one tablet every 8 hours as needed for nausea 30 Tablet 2 11/01/19 25 Active prochlorperazi ne (COMPAZINE) 10 MG TabletIndicati ons:Cervical cancer, FIGO stage IIB (HCC) Take 1 Tablet by mouth every 6 hours as needed for Nausea - 2nd line. Take one tablet every 6 hours as needed for nausea. 30 Tablet 2 11/01/19 25 Active OLANZapine (ZyPREXA) 5 MG TabletIndicati ons:Cervical cancer, FIGO stage IIB (HCC) Take 1 Tablet by mouth See Admin Instructions. Take one tablet nightly for 4 nights, starting the night prior to chemotherapy. Repeat every 7 days for 6 cycles 24 Tablet 11/01/19 25 Active gabapentin (NEURONTIN) 300 MG Capsule TAKE 1 CAPSULE BY MOUTH EVERY DAY AT NIGHT 30 Capsule 1 01/03/20 25 Active gabapentin (NEURONTIN) 300 MG Capsule Take 1 Capsule by mouth nightly. 30 Capsule 1 11/09/19 25 025 Discontinued promethazine (PHENERGAN) 12.5 MG TabletIndicati ons:Nausea and Vomiting Take 1 Tablet by mouth 4 times daily as needed for Nausea - 1st line for up to 4 days. Indications: Nausea and Vomiting 16 Tablet 12/20/19 25 025 Active Problems Problem Noted Date Diagnosed Date [...] Encounters Date Type Department Care Team Description 12/31/2024 Refill [facility] Oncology Services [address] [place] [address] Malvin Estarda MD Medication Refill 12/23/2024 Telephone [facility] Oncology Services [address] [place] [phone] Bryanna Smith APRN, CNP 12/19/2024 [facility] [address] [place] [phone] Malvin Estrada MD 12/19/2024 [facility]phone [facility] [address] [place] [phone] Malvin Estrada MD 12/12/2024 8:30 AM CDT Clinical Support [facility] Oncology Services [address] [place] [phone] Bryanna Smith APRN, NELIDA Cervical cancer, FIGO stage IB (HCC) (Primary Dx); Cervical cancer, FIGO stage IIB (HCC); Dysuria Discharge Disposition: Discharged to home or Selfcare 12/12/2024 8:15 AM CDT Office Visit [facility] Oncology Services [address] [place] [phone] Bryanna Smith APRN, NELIDA Cervical cancer, FIGO stage IB (HCC) (Primary Dx); History of therapeutic radiation; History of cancer chemotherapy; Dysuria; Chemotherapy induced diarrhea; Chemotherapy-induce d nausea Discharge Disposition: Discharged to home or Selfcare 12/12/2024 Travel 12/10/2024 Travel 12/07/2024 Documentation Only [facility] Oncology Services [address] [place] [phone] Yanet Black, BARI 12/05/2024 9:00 AM CDT Clinical Support [facility] Oncology Services [address] [place] [phone] Malvin Estrada MD Cervical cancer, FIGO stage IB (HCC) (Primary Dx); Cervical cancer, FIGO stage IIB (HCC) Discharge Disposition: Discharged to home or Selfcare 12/05/2024 9:00 AM CDT Office Visit [facility] Oncology Services [address] [place] [phone] Taqueria Gresham MD Butler, David Ferrell, MD Cervical cancer, FIGO stage IIB (HCC) (Primary Dx); Encounter for radiotherapy; Patient on combined chemotherapy and radiation Discharge Disposition: Discharged to home or Selfcare 12/05/2024 8:45 AM CDT Clinical Support [facility] Oncology Services [address] [place] [phone] Taqueria Gresham MD History of therapeutic radiation (Primary Dx); History of cancer chemotherapy; Cervical cancer, FIGO stage IB (HCC) Discharge Disposition: Discharged to home or Selfcare 12/05/2024 Travel 12/03/2024 Travel 12/02/2024 10:00 AM CDT Clinical Support [facility] Oncology Services [address] [place] [phone] Taqueria Gresham MD Discharge Disposition: Discharged to home or Selfcare 12/02/2024 Travel 12/01/2024 10:00 AM CDT Clinical Support [facility] Oncology Services [address] [place] [phone] Taqueria Gresham MD Discharge Disposition: Discharged to home or Selfcare 12/01/2024 Travel 11/30/2024 10:00 AM CDT Clinical Support [facility] Oncology Services [address] [place] [phone] Taqueria Gresham MD Discharge Disposition: Discharged to home or Selfcare 11/30/2024 Travel 11/29/2024 10:00 AM CDT Clinical Support [facility] Oncology Services [address] [place] [phone] Taqueria Gresham MD Discharge Disposition: Discharged to home or Selfcare 11/29/2024 Travel 11/28/2024 10:15 AM CDT Office Visit [facility] Oncology Services [address] [place] [phone] Taqueria Gresham MD Encounter for radiotherapy (Primary Dx); Patient on combined chemotherapy and radiation; Cervical cancer, FIGO stage IIB (HCC); Loose stools Discharge Disposition: Discharged to home or Selfcare 11/28/2024 10:00 AM CDT Clinical Support [facility] Oncology Services [address] [place] [phone] Taqueria Grseham MD Discharge Disposition: Discharged to home or Selfcare 11/28/2024 9:00 AM CDT Clinical Support [facility] Oncology Services [address] [place] [phone] Malvin Estrada MD Cervical cancer, FIGO stage IIB (HCC) (Primary Dx); Cervical cancer, FIGO stage IB (HCC) Discharge Disposition: Discharged to home or Selfcare 11/28/2024 Travel 11/27/2024 Travel 11/26/2024 Travel 11/25/2024 10:00 AM CDT Clinical Support [facility] Oncology Services [address] [place] [phone] Taqueria Gresham MD Discharge Disposition: Discharged to home or Selfcare 11/25/2024 Travel 11/24/2024 11:00 AM CDT Clinical Support [facility] Oncology Services [address] [place] [phone] Taqueria Gresham MD Cervical cancer, FIGO stage IIB (HCC) (Primary Dx); Diarrhea, unspecified type Discharge Disposition: Discharged to home or Selfcare 11/24/2024 10:00 AM CDT Documentation Only [facility] Oncology Services [address] [place] [phone] Taqueria Gresham MD Cervical cancer, FIGO stage IIB (HCC) Discharge Disposition: Discharged to home or Selfcare 11/24/2024 Travel 11/23/2024 10:00 AM CDT Clinical Support [facility] Oncology Services [address] [place] [phone] Malvin Estrada MD Diarrhea, unspecified type (Primary Dx) Discharge Disposition: Discharged to home or Selfcare 11/23/2024 10:00 AM CDT Clinical Support [facility] Oncology Services [address] [place] [phone] Taqueria Gresham MD Discharge Disposition: Discharged to home or Selfcare 11/23/2024 9:15 AM CDT Office Visit [facility] Oncology Services [address] [place] [phone] Malvin Estrada MD Baxley, Brandy M, APRN, BANKING AND FINANCE INSTRUCTOR Cervical cancer, FIGO stage IIB (HCC) (Primary Dx); Neuralgic pain; Diarrhea, unspecified type Discharge Disposition: Discharged to home or Selfcare 11/23/2024 Travel 11/22/2024 10:00 AM CDT Clinical Support [facility] Oncology Services [address] [place] [phone] Taqueria Gresham MD Discharge Disposition: Discharged to home or Selfcare 11/22/2024 Travel 11/21/2024 10:15 AM CDT Office Visit [facility] Oncology Services [address] [place] [phone] Taqueria Gresham MD Encounter for radiotherapy (Primary Dx); Patient on combined chemotherapy and radiation; Cervical cancer, FIGO stage IIB (HCC); Loose stools Discharge Disposition: Discharged to home or Selfcare 11/21/2024 10:00 AM CDT [facility] [address] [place] [phone] Taqueria Gresham MD Discharge Disposition: Discharged to home or Selfcare 11/21/2024 9:00 AM CDT Clinical Support [facility] [address] [place] [address] Malvin Estrada MD Cervical cancer, FIGO stage IIB (HCC) (Primary Dx) Discharge Disposition: Discharged to home or Selfcare 11/21/2024 Travel 11/19/2024 Travel 11/18/2024 10:00 AM CDT Clinical Support [facility] Oncology Services [address] [place] [phone] Taqueria Gresham MD Discharge Disposition: Discharged to home or Selfcare 11/18/2024 Travel 11/17/2024 10:00 AM CDT Clinical Support [facility] [address] [place] [phone] Taqueria Gresham MD Discharge Disposition: Discharged to home or Selfcare 11/17/2024 Travel 11/16/2024 10:00 AM CDT Clinical Support [facility] Oncology Services [address] [place] [phone] Taqueria Gresham MD Discharge Disposition: Discharged to home or Selfcare 11/16/2024 Travel 11/15/2024 10:00 AM CDT Clinical Support [facility] Oncology Services [address] [place] [phone] Taqueria Gresham MD Discharge Disposition: Discharged to home or Selfcare 11/15/2024 9:00 AM CDT Clinical Support [facility] [address] [place] [phone] Malvin Estrada MD Cervical cancer, FIGO stage IB (HCC) (Primary Dx); Cervical cancer, FIGO stage IIB (HCC) Discharge Disposition: Discharged to home or Selfcare 11/15/2024 Travel 11/14/2024 10:15 AM CDT [facility] [address] [place] [phone] Taqueria Gresham MD Encounter for radiotherapy (Primary Dx); Patient on combined chemotherapy and radiation; Cervical cancer, FIGO stage IIB (HCC) Discharge Disposition: Discharged to home or Selfcare 11/14/2024 10:00 AM CDT Clinical Support [facility] Oncology Services [address] [place] [phone] Taqueria Gresham MD Discharge Disposition: Discharged to home or Selfcare 11/14/2024 Travel 11/13/2024 Travel 11/12/2024 Travel 11/11/2024 10:00 AM CDT Clinical Support [facility] Oncology Services [address] [place] [phone] Taqueria Gresham MD Discharge Disposition: Discharged to home or Selfcare 11/11/2024 Travel 11/10/2024 10:00 AM CDT Clinical Support [facility] Oncology Services [address] [place] [phone] Taqueria Gresham MD Discharge Disposition: Discharged to home or Selfcare 11/10/2024 Travel 11/09/2024 10:00 AM CDT Clinical Support [facility] Oncology Services [address] [place] [phone] Taqueria Gresham MD Discharge Disposition: Discharged to home or Selfcare 11/09/2024 Travel 11/08/2024 10:15 AM CDT Office Visit [facility] Oncology Services [address] [place] [phone] Taqueria Gresham MD Encounter for radiotherapy (Primary Dx); Patient on combined chemotherapy and radiation; Cervical cancer, FIGO stage IIB (HCC); Vagina bleeding Discharge Disposition: Discharged to home or Selfcare 11/08/2024 10:00 AM CDT Clinical Support [facility] Oncology Services [address] [place] [phone] Taqueria Gresham MD Discharge Disposition: Discharged to home or Selfcare 11/08/2024 9:40 AM CDT Office Visit [facility] Oncology Services [address] [place] [phone] Malvin Estrada MD 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 (HCC) (Primary Dx); Controlled type 2 diabetes mellitus without complication, with long-term current use of insulin; Chemotherapy induced diarrhea; Cervical cancer, FIGO stage IIB (HCC); Neuralgic pain Discharge Disposition: Discharged to home or Selfcare 11/08/2024 9:00 AM CDT Clinical Support [facility] Oncology Services [address] [place] [phone] Malvin Estrada MD Cervical cancer, FIGO stage IIB (HCC) (Primary Dx) Discharge Disposition: Discharged to home or Selfcare 11/08/2024 Travel 11/07/2024 Travel 11/06/2024 Travel 11/04/2024 10:00 AM CDT Clinical Support [facility] Oncology Services [address] [place] [phone] Taqueria Gresham MD Discharge Disposition: Discharged to home or Selfcare 11/04/2024 Travel 11/03/2024 10:00 AM CDT Clinical Support [facility] Oncology Services [address] [place] [phone] Taqueria Gresham MD Discharge Disposition: Discharged to home or Selfcare 11/03/2024 Travel 11/02/2024 10:00 AM CDT Clinical Support [facility] Oncology Services [address] [place] [phone] Taqueria Gresham MD Discharge Disposition: Discharged to home or Selfcare 11/02/2024 Documentation Only [facility] Oncology Services [address] [place] [phone] Taqueria Gresham MD 11/02/2024 Travel 11/01/2024 10:00 AM CDT Clinical Support [facility] Oncology Services [address] [place] [phone] Taqueria Gresham MD Discharge Disposition: Discharged to home or Selfcare 11/01/2024 Travel 10/31/2024 10:30 AM CDT Office Visit [facility] Oncology Services [address] [place] [phone] Taqueria Gresham MD Butler, David Ferrell, MD Cervical cancer, FIGO stage IB (HCC) (Primary Dx); 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 (HCC) Discharge Disposition: Discharged to home or Selfcare 10/31/2024 10:30 AM CDT Clinical Support [facility] Oncology Services [address] [place] [phone] Malvin Estrada MD Cervical cancer, FIGO stage IIB (HCC) (Primary Dx) Discharge Disposition: Discharged to home or Selfcare 10/31/2024 10:00 AM CDT Clinical Support [facility] Oncology Services [address] [place] [phone] Taqueria Gresham MD Butler, David Ferrell, MD Cervical cancer, FIGO stage IB (HCC) (Primary Dx); 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 (HCC) Discharge Disposition: Discharged to home or Selfcare 10/31/2024 8:15 AM CDT [facility] [address] [place] [phone] Bryanna Smith APRN, CNP Cervical cancer, FIGO stage IIB (HCC) (Primary Dx) Discharge Disposition: Discharged to home or Selfcare 10/31/2024 Travel 10/30/2024 Travel 10/29/2024 Travel 10/28/2024 Non-Scheduled [facility] [address] [place] [phone] Taqueria Gresham MD Cervical cancer, FIGO stage IIB (HCC) (Primary Dx) 10/24/2024 Telephone [facility] [address] [place] [phone] Malvin Estrada MD 10/21/2024 Documentation Only [facility] [address] [place] [address] Taqueria Gresham MD 10/19/2024 10:15 AM CDT Ancillary Procedure [facility] [address] [place] [phone] Taqueria Gresham MD Encounter for radiotherapy (Primary Dx); Cervical cancer, FIGO stage IB (HCC); Status post MICKI-BSO Discharge Disposition: Discharged to home or Selfcare 10/17/2024 12:21 PM CDT - 10/17/2024 11:59 PM CDT Hospital Encounter [facility] MRI [address] [place] [address] Taqueria Gresham MD Discharge Disposition: Discharged to home or Selfcare 10/17/2024 Travel from Last 3 Months Family History [...] Care Team (Late st Contact Info) Description 03/14/2025 9:30 AM CDT [facility] [address] [place] [phone] Barry Martin MD [address] [place] [address] Discharge Disposition: Discharged to home or Selfcare [...] (HCC) HM COLONOSCOPY 10/12/2024 12:00 AM CDT from Last 3 Months or Most Recently Relevant to Health Maintenance Results * (ABNORMAL) URINALYSIS REFLEX IF INDICATED BY ABNORMAL RESULTS (12/12/2024 9:43 AM CDT) SPECIFIC GRAVITY 1.010 1.003 - 1.030 12/12/2024 10:11 AM CDT [facility] URINE PH 6.5 5.0 - 9.0 12/12/2024 10:11 AM CDT [facility] WBC ESTERASE 25 /ul(A) Negative 12/12/2024 10:11 AM CDT [facility] NITRITE Negative Negative 12/12/2024 10:11 AM CDT [facility] PROTEIN, RANDOM URINE 500 mg/dL(A) Negative 12/12/2024 10:11 AM CDT [facility] URINE GLUCOSE, QUAL Negative Negative 12/12/2024 10:11 AM CDT [facility] URINE KETONES 15 mg/dL(A) Negative 12/12/2024 10:11 AM CDT [facility] UROBILINOGEN Normal Normal mg/dL 12/12/2024 10:11 AM CDT [facility] URINE BLOOD 150 /uL(A) Negative debbie/ul 12/12/2024 10:11 AM CDT [facility] URINALYSIS COLOR Yellow 12/13/19 10:11 AM CDT [facility] URINALYSIS CLARITY Very Cloudy 12/12/2024 10:11 AM CDT [facility] WBC (Urine) 51-150(A) Negative, 0-5 /hpf 12/12/2024 10:11 AM CDT [facility] URINE RBC'S 51-150(A) Negative, 0-2 /hpf 12/12/2024 10:11 AM CDT [facility] EPITHELIAL CELLS Moderate amount /lpf 12/12/2024 10:11 AM CDT [facility] BACTERIA, URINE Few(A) Negative /hpf 12/12/2024 10:11 AM CDT [facility] Urine URINE SPECIMEN OBTAINED BY CLEAN CATCH PROCEDURE / Unknown Non-Phlebotomy Collection / Unknown 12/12/2024 9:43 AM CDT 12/12/2024 9:43 AM CDT us Bryanna Smith APRN, CNP URINE ORDERABLES Final Result Performing Organization Address City/[facility]/ZIP Co de Phone Number [facility] [address] [place] [address] * CULTURE, URINE (12/12/2024 9:43 AM CDT) CULTURE RESULTS GROUP B STREPTOCOCCUS 12/14/2024 8:58 AM CDT [facility] [place] CULTURE RESULTS Also mixed growth of distal urethral contaminants 12/14/2024 8:58 AM CDT [facility] Urine URINE SPECIMEN OBTAINED BY CLEAN CATCH PROCEDURE / Unknown Non-Phlebotomy Collection / Unknown 12/12/2024 9:43 AM CDT 12/12/2024 9:43 AM CDT Narrative Organism Antibiotic Method Susceptibility Streptococcus agalactiae Ampicillin [facility] IIB <=0.25 mcg/ml: Susceptible Streptococcus agalactiae Benzylpenicillin [facility] I IB <=0.12 mcg/ml: Susceptible Streptococcus agalactiae Levofloxacin [facility] IIB 1 mcg/ml: Susceptible Streptococcus agalactiae Vancomycin [facility] IIB <=0.5 mcg/ml: Susceptible us Bryanna Smith APRN, CNP MICROBIOLOGY - GENERAL ORDERABLES Final Result [facility] [place] [address] [place] [address], [place] * (ABNORMAL) CBC WITH AUTO DIFFERENTIAL (12/12/2024 8:36 AM CDT) Only the most recent of8 resultswithin the time period is included. WBC 1.92(L) 4.00 - 12.00 10(3)/mcL 12/12/2024 9:06 AM CDT [facility] RBC 3.18(L) 3.80 - 5.30 10(6)/mcL 12/12/2024 9:06 AM CDT [facility] HEMOGLOBIN (HGB) 8.8(L) 12.0 - 15.8 g/dL 12/12/2024 9:06 AM CDT [facility] HEMATOCRIT (HCT) 26.3(L) 36.0 - 47.0 % 12/12/2024 9:06 AM CDT [facility] MCV 82.7 82.0 - 96.0 fL 12/12/2024 9:06 AM CDT [facility] MCH 27.7 26.0 - 34.0 pg 12/12/2024 9:06 AM CDT [facility] MCHC 33.5 31.0 - 36.0 g/dL 12/12/2024 9:06 AM [facility] PLATELET COUNT 94(L) 140 - 440 10(3)/mcL 12/12/2024 9:06 AM T [facility] RDW 14.8 11.8 - 15.5 % 12/12/2024 9:06 AM [facility] MPV 8.7(L) 9.7 - 12.4 fL 12/12/2024 9:06 AM [facility] NEUTROPHILS 70.3 47.0 - 73.0 % 12/12/2024 9:06 AM [facility] LYMPHOCYTES 5.7(L) 18.0 - 42.0 % 12/12/2024 9:06 AM CDT [facility] MONOCYTES 14.6(H) 4.0 - 12.0 % 12/12/2024 9:06 AM CDT [facility] EOSINOPHILS 7.8(H) 0.0 - 5.0 % 12/12/2024 9:06 AM CDT [facility] BASOPHILS 1.6(H) 0.0 - 1.0 % 12/12/2024 9:06 AM CDT [facility] IMMATURE GRANULOCYTE 0.0 0.0 - 0.4 % 12/12/2024 9:06 AM CDT [facility] Comment:Immature Granulocyte s includes Metamyelocytes, Myelocytes, and Promyelocytes. ABSOLUTE NEUTROPHILS 1.35(L) 1.60 - 7.70 10(3)/mcL 12/12/2024 9:06 AM CDT [facility] ABSOLUTE LYMPHOCYTES 0.11(L) 1.30 - 3.20 10(3)/mcL 12/12/2024 9:06 AM CDT [facility] ABSOLUTE MONOCYTES 0.28 0.20 - 1.00 10(3)/mcL 12/12/2024 9:06 AM CDT [facility] ABSOLUTE EOSINOPHIL 0.15 0.00 - 0.40 10(3)/[facility] 12/12/2024 9:06 AM CDT [facility] ABSOLUTE BASOPHILS 0.03 0.00 - 0.10 10(3)/[facility] 12/12/2024 9:06 AM CDT [facility] ABSOLUTE IMMATURE GRANULOCYTE 0.00 0.00 - 0.03 10 (3) mcL. 12/12/2024 9:06 AM CDT [facility] NRBC PER 100 WBC 0 12/13/19 25 9:06 AM CDT [facility] RESULTS ARE CONSISTENT WITH PERIPHERAL SMEAR REVIEW Yes 12/12/2024 9:06 AM CDT [facility] Blood Venipuncture / Unknown 12/12/2024 8:36 AM CDT 12/12/2024 8:36 AM CDT us Malvin Estrada MD HEMATOLOGY ORDERABLES Fi nal Result [facility] [address] [place] [address] * (ABNORMAL) MAGNESIUM (MG) (12/12/2024 8:36 AM CDT) Only the most recent of5 resultswithin the time period is included. Pathologist [facility] MAGNESIUM 1.4(L) 1.6 - 2.6 mg/dL 12/12/2024 9:13 AM CDT [facility] Blood Venipuncture / Unknown 12/12/2024 8:36 AM CDT 12/12/2024 8:36 AM CDT us Malvin Estrada MD CHEMISTRY ORDERABLES Fin al Result [facility] [address] [place] [address] * (ABNORMAL) CMP (COMPREHENSIVE METABOLIC PANEL) (12/12/2024 8:36 AM CDT) Only the most recent of8 resultswithin the time period is included. SODIUM 134(L) 136 - 145 mmol/L 12/12/2024 9:13 AM CDT [facility] POTASSIUM 3.9 3.5 - 5.1 mmol/L 12/12/2024 9:13 AM CDT [facility] CHLORIDE 100 98 - 107 mmol/L 12/12/2024 9:13 AM CDT [facility] CO2, VENOUS 24 22 - 30 mmol/L 12/12/2024 9:13 AM CDT [facility] ANION GAP 13.9 <18.0 mmol/L 12/12/2024 9:13 AM CDT [facility] GLUCOSE 104(H) 70 - 99 mg/dL 12/12/2024 9:13 AM CDT [facility] BUN 13 10 - 20 mg/dL 12/12/2024 9:13 AM CDT [facility] CREATININE, BLOOD 1.12(H) 0.60 - 1.00 mg/dL 12/12/2024 9:13 AM CDT [facility] BUN/CREATININE RATIO 12 12 - 20 ratio 12/12/2024 9:13 AM CDT [facility] TOTAL PROTEIN 6.3 6.0 - 8.0 g/dL 12/12/2024 9:13 AM CDT [facility] ALBUMIN 3.7 3.5 - 5.0 g/dL 12/12/2024 9:13 AM CDT [facility] A/G RATIO 1.4 1.0 - 2.2 12/12/2024 9:13 AM CDT [facility] CALCIUM 8.6(L) 8.7 - 10.5 mg/dL 12/12/2024 9:13 AM CDT [facility] T BILI 0.4 0.2 - 1.2 mg/dL 12/12/2024 9:13 AM CDT [facility] SGOT (AST) 17 <43 U/L 12/12/2024 9:13 AM CDT [facility] SGPT (ALT) <6 <56 U/L 12/12/2024 9:13 AM CDT [facility] ALKALINE PHOSPHATASE 36(L) 40 - 150 U/L 12/12/2024 9:13 AM CDT [facility] IS THE PATIENT REQUIRED TO BE FASTING? No 12/12/2024 9:13 AM CDT [facility] GFR, ESTIMATED 55(L) >=60 12/12/2024 9:13 AM CDT [facility] Comment: Creatinine Clearance is the preferred criteria for selecting drug dose adjustments in renally impaired patients. The GFR is provided as additional pertinent clinical information. GFR is reported in mL/min/1.73 sq m. Calculation based on the Chronic Kidney Disease Epidemiology Collaboration (CKD- EPI) equation refit without adjustment for race. GFR, EST. 59(L) >=60 12/12/2 025 9:13 AM CDT [facility] GFR, EST. NONAFRICAN 49(L) >=60 12/12/2024 9:13 AM CDT [facility] Blood Venipuncture / Unknown 12/12/2024 8:36 AM CDT 12/12/2024 8:36 AM CDT Malvin Estrada MD CHEMISTRY ORDERABLES Fin al Result [facility] [[email or web address] LAB [address] [place] [address] * RAD ONC ARIA COURSE SUMMARY (12/07/2024 [...] F inal Result [address] [place] [address] * RAD ONC ARIA SESSION SUMMARY (12/05/2024 [...] ORDERABLES F inal Result Performing Organization Address City/[facility] Co de Phone Number [facility] [address] [place] [address] * RAD ONC ARIA SESSION SUMMARY (12/02/2024 [...] ORDERABLES F inal Result Performing Organization Address City/[facility]/ZIP Co de Phone Number ARI[address] [place] [address] * RAD ONC ARIA SESSION SUMMARY (12/01/2024 [...] F inal Result [address] [place] [address] * RAD ONC ARIA SESSION SUMMARY (11/30/2024 [...] ORDERABLES F inal Result Performing Organization Address [facility] de Phone Number ARIA [address] [place] [address] * RAD ONC ARIA SESSION SUMMARY (11/29/2024 [...] ORDERABLES F inal Result Performing Organization Address [facility] Co de Phone Number ARIA [address] [place] [address] * RAD ONC ARIA SESSION SUMMARY (11/28/2024 [...] ORDERABLES F inal Result Performing Organization Address City/State/[facility] Co de Phone Number ARIA [address] [place] [address] * RAD ONC ARIA SESSION SUMMARY (11/25/2024 [...] F inal Result [address] [place] [address] * C. DIFF BY PCR (11/25/2024 10:11 AM CDT) C DIFF TOXIN DNA BY PCR Negative Negative, Invalid 11/25/2024 11:19 AM CDT [facility] [[email or web address]] [facility] Other STOOL SPECIMEN / Unknown Non-Phlebotomy Collection / Unknown 11/25/2024 10:11 AM CDT 11/25/2024 10:11 AM CDT us Bryanna Smith APRN, BANKING AND FINANCE INSTRUCTOR MICROBIOLOGY - GENERAL ORDERABLES Final Result [facility] [address] [place] [address] * RAD ONC ARIA SESSION SUMMARY (11/24/2024 [...] ORDERABLES F inal Result Performing Organization Address [facility] Co de Phone Number ARIA [address] [place] [address] * RAD ONC ARIA SESSION SUMMARY (11/23/2024 [...] ORDERABLES F inal Result Performing Organization Address [facility] Co de Phone Number [address] [place] [address] * RAD ONC ARIA SESSION SUMMARY (11/22/2024 [...] ORDERABLES F inal Result Performing Organization Address [facility] Co de Phone Number ARI[address] [place] [address] * RAD ONC ARIA SESSION SUMMARY (11/21/2024 [...] ORDERABLES F inal Result Performing Organization Address [facility] Co de Phone Number ARI[address] [place] [address] * RAD ONC ARIA SESSION SUMMARY (11/18/2024 [...] ORDERABLES F inal Result Performing Organization Address City/State/[facility] Co de Phone Number [address] [place] [address] * RAD ONC ARIA SESSION SUMMARY (11/17/2024 [...] ORDERABLES F inal Result Performing Organization Address [facility] Co de Phone Number ARIA [address] [place] [address] * RAD ONC ARIA SESSION SUMMARY (11/16/2024 [...] ORDERABLES F inal Result Performing Organization Address City/[facility] Co de Phone Number [address] [place] [address] * RAD ONC ARIA SESSION SUMMARY (11/15/2024 [...] ORDERABLES F inal Result Performing Organization Address City/State/[facility] Co de Phone Number ARIA [address] [place] [address] * RAD ONC ARIA SESSION SUMMARY (11/14/2024 [...] ORDERABLES F inal Result Performing Organization Address [facility] Co de Phone Number [address] [place] [address] * RAD ONC ARIA SESSION SUMMARY (11/11/2024 [...] ORDERABLES F inal Result Performing Organization Address [facility] Co de Phone Number ARIA [address] [place] [address] * RAD ONC ARIA SESSION SUMMARY (11/10/2024 [...] ORDERABLES F inal Result Performing Organization Address [facility] Co de Phone Number ARIA [address] [place] [address] * RAD ONC ARIA SESSION SUMMARY (11/09/2024 [...] ORDERABLES F inal Result Performing Organization Address [facility] Co de Phone Number ARIA [address] [place] [address] * RAD ONC ARIA SESSION SUMMARY (11/08/2024 [...] ORDERABLES F inal Result Performing Organization Address City/State/[facility] Co de Phone Number [address] [place] [address] * RAD ONC ARIA SESSION SUMMARY (11/04/2024 [...] ORDERABLES F inal Result Performing Organization Address City/[facility] Co de Phone Number [address] [place] [address] * RAD ONC ARIA SESSION SUMMARY (11/03/2024 [...] ORDERABLES F inal Result Performing Organization Address City/[facility] Co de Phone Number ARIA [address] [place] [address] * RAD ONC ARIA SESSION SUMMARY (11/02/2024 [...] ORDERABLES F inal Result Performing Organization Address City/State/[facility] Co de Phone Number ARI[address] [place] [address] * RAD ONC ARIA SESSION SUMMARY (11/01/2024 [...] ORDERABLES F inal Result Performing Organization Address [facility] de Phone Number ARIA [address] [place] [address] * RAD ONC ARIA SESSION SUMMARY (10/31/2024 [...] ORDERABLES F inal Result Performing Organization Address [facility] Co de Phone Number [address] [place] [address] * MRI PELVIS W/WO CONTRAST (10/17/2024 1:27 [...] Antonio Lopez M.D. NS: NS Report ID: [id number] Reading Location: [id number] Procedure Note José Antonio Lopez MD - [...] Antonio Lopez M.D. NS: NS Report ID: [id number] Reading Location: [id number] IMPRESSION: Heterogeneous cervical mass with invasion of [...] PROCEDURE/MINOR SURGICAL ORDERAB LES Final Result SCAN from Last 3 Months or Most Recently Relevant to Health Maintenance Insurance [facility] Care Teams Weaver Apprentice Relationship Specialty Start Date End Date Diann Crain, PROJECT LANDSCAPE ARCHITECT, BANKING AND FINANCE INSTRUCTOR [address] [place] [address] PCP - General Advanced Practice Nurse 10/10/24 Antonia Rodriguez MD [address] [address] Consulting Physician Gynecologic Oncology 10/11/24 Malvin Estrada MD [address] [place] [address] Consulting Physician Medical Oncology 10/11/24 Taqueria Gresham MD [address] [place], [place] [id number] Consulting Physician Radiation Oncology 10/11/24 Montana Lakhani MD [address] [place] [address] Consulting Physician Radiation Oncology 10/12/24
--- OUTSIDE RECORDS SUMMARY | 2025-01-17 14:32 | XMS_ITS ---
Author Organization [facility] Address [address] [place], [place] [id number] Care Team Providers Care Box Toe Stitcher Name Role Phone JESUS MANUEL AHMADI Unavailable [phone] Diann Crain Unavailable Unavailable JESUS MANUEL ORTEGA Unavailable [phone] REASON FOR VISIT *General care, sick Social History Sex Assigned At : Social History Observation Description Sex Assigned At Female Encounters Encounter Location Date Provider Diagnosis [facility] [place] [address] [address] [facility] [address] [place], [place] [id number] 12/08/2024 JESUS MANUEL ORTEGA Plan Of Treatment No Information Progress Notes * Ida GRANDE RDOB: (64 yo F)Acc No.[id number]:12/08/2024 Patient: Ida KNOWLES Provider: Oliver Ortega DPM :1960 A ge:64 Y S ex:Female Date:12/08/2024 Address:[address] [facility] [place], [place] Subjective: * Chief Complaints: * 1 . *General care, sick. * Medical History: Objective: * Vitals: Assessment: Plan: * Treatment: * Billing Information: * Visit Code: * Procedure Codes: * Electronic signature of JESUS MANUEL ORTEGA DPM on 01/17/2025 at 02:32 PM CDT Sign off status: Pending * Provider: Oliver Ortega, MG Date: 0 12/08/2024 Generated for Sara ovalle/Bowen/Aranza on: 0 01/17/2025 02:32 PM CDT
--- OUTSIDE RECORDS SUMMARY | 2025-01-17 14:32 | XMS_ITS | Clinical Summary ---
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 This disclosure is being madepursuant to the Care Everywhere program and may not contain all information available regarding this patient. Last updated 18.[facility] Allergies Active Allergy Reactions Criticality Noted Date [...] as needed for Pain 40 tablet 1 09/20/19 25 Active docusate sodium (Colace) 100 MG capsule Take 1 (one) capsule by mouth 2 times daily 60 capsule 1 09/20/19 25 Active gabapentin (Neurontin) 300 MG capsule Take [...] 6 hours as needed for Nausea/Vomiting Active nitrofurantoin monohyd macro crystals (Macrobid) 100 MG capsule Take 1 (one) capsule by mouth 2 times daily with morning and evening meal 12/20/19 25 Active Magnesium Oxide -Mg Supplement 400 (240 Mg) MG Take 1 (one) tablet by mouth 2 times daily 11/02/19 25 Active phenazopyridin e (Pyridium) 200 MG tablet Take 1 (one) tablet by mouth 3 times daily with meals 30 tablet 01/04/20 25 Active promethazine (Phenergan) 12.5 MG tablet Take 1 (one) tablet by mouth 12/20/19 25 025 Active Problems Problem Noted Date Diagnosed Date Diabetes mellitus, type 2 01/05/2025 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 x 12/27/2024 Encounters Date Type Department Care Team Description 01/10/2025 9:00 AM CDT Office Visit [facility] - Rad/Onc [address] [place] [phone] Montana Lakhani MD 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 (HCC) (Primary Dx) 01/10/2025 7:22 AM CDT Anesthesia Event [facility] [address] [place] [address] Wally Serrano MD Levin, Vitaly F, MD 01/10/2025 7:15 AM CDT - 01/10/2025 8:24 AM CDT Surgery [facility] [address] [place] [phone] Saran Troy MD [employer] PLACEMENT 01/10/2025 5:32 AM CDT - 01/10/2025 11:53 AM CDT Hospital Encounter [facility] [address] [place] [address] Saran Troy MD Surgery General Discharge Disposition: Home or Self Care 01/10/2025 Travel 01/05/2025 9:30 AM CDT Office Visit [facility] - Rad/Onc [address] [place] [phone] Montana Lakhani MD 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 (HCC) (Primary Dx) 01/05/2025 7:25 AM CDT Anesthesia Event [facility] [address] [place] [address] Milly Rausch MD Levin, Vitaly F, MD 01/05/2025 7:15 AM CDT - 01/05/2025 8:45 AM CDT Surgery [facility] [address] [place] [address] Antonia Rodriguez MD PLACEMENT OF [employer]DEM [employer] RING 01/05/2025 5:10 AM CDT - 01/05/2025 12:21 PM CDT Hospital Encounter [facility] [address] [place] [phone] Antonia Rodriguez MD Surgery General Discharge Disposition: Home or Self Care 01/05/2025 Travel 01/03/2025 9:30 AM CDT Office Visit [facility] - Rad/Onc [address] [place] [phone] Montana Lakhani MD 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 (HCC) (Primary Dx) 01/03/2025 7:21 AM CDT Anesthesia Event [facility] [address] [place] [phone] Milly Rausch MD Will, Margaret HKISHOREN-TUBE REBUILDER 01/03/2025 7:15 AM CDT - 01/03/2025 8:24 AM CDT Surgery [facility] [address] [place] [address] Saran Troy MD PLACEMENT OF [employer]DE[employer] RING 01/03/2025 5:26 AM CDT - 01/03/2025 12:20 PM CDT Hospital Encounter [facility] [address] [place] [phone] Saran Troy MD Surgery General Discharge Disposition: Home or Self Care 12/27/2024 9:30 AM CDT Office Visit [facility] - Rad/Onc [address] [place] [phone] Montana Lakhani MD 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 (HCC) (Primary Dx) 12/27/2024 7:23 AM CDT Anesthesia Event [facility] [address] [place] [phone] Milly Rausch MD 12/27/2024 7:15 AM CDT - 12/27/2024 8:15 AM CDT Surgery [facility] [address] [place] [address] Montana Villa MD PLACEMENT OF [employer] RINGS 12/27/2024 5:50 AM CDT - 12/27/2024 12:45 PM CDT Hospital Encounter [facility] [address] [place] [address] Montana Villa MD Surgery General Discharge Disposition: Home or Self Care 12/27/2024 Travel 12/26/2024 Travel 12/22/2024 9:30 AM CDT Office Visit [facility] - Rad/Onc [address] [place] [phone] Montana Lakhani MD 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 (HCC) (Primary Dx) 12/22/2024 7:21 AM CDT Anesthesia Event [facility] [address] [place] [phone] Jay oJnes MD Hogan, Steven 12/22/2024 7:15 AM CDT - 12/22/2024 8:21 AM CDT Surgery [facility] [address] [place] [address] Lamont Cueva MD PLACEMENT OF [employer]DEM [employer] RING 12/22/2024 5:42 AM CDT - 12/22/2024 12:45 PM CDT Hospital Encounter [facility] [address] [place] [address] Lamont Cueva MD Surgery General Discharge Disposition: Home or Self Care 12/22/2024 Travel 12/21/2024 Travel 12/21/2024 Telephone [facility] - EXPERIENTIAL THERAPIST [address] [place] [phone] Antonia Rodriguez MD Question 12/20/2024 Telephone [facility] - Rad/Onc [address] [place] [phone] Argentina Rosenthal RN Appointment 12/20/2024 Travel 12/19/2024 Telephone [facility] - EXPERIENTIAL THERAPIST [address] [facility] [place] [phone] Montana Villa MD Question 12/13/2024 Telephone [facility] - Rad/Onc [address] [place] [phone] Argentina Rosenthal, RN Appointment 12/12/2024 Travel 12/02/2024 Telephone [facility] - Rad/Onc [address] [place] [phone] Argentina Rosenthal, RN Appointment 11/16/2024 1:00 PM CDT - 12/18/2024 11:59 PM CDT Hospital Encounter [facility] - Radiation Oncology [address] [place] [phone] Montana Lakhani MD Discharge Disposition: Home or Self Care 11/16/2024 1:00 PM CDT Office Visit [facility] - Rad/Onc [address] [place] [phone] Motnana Lakhani MD 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 (HCC) (Primary Dx) 11/16/2024 Travel 11/04/2024 Travel 10/26/2024 Telephone [facility] - Rad/Onc [address] [place] [phone] Argentina Rosenthal, RN Follow-up 10/26/2024 Orders Only [facility] - EXPERIENTIAL THERAPIST [address] [facility] [address] [place] [phone] Antonia Rodriguez MD Malignant neoplasm of cervix, unspecified site (HCC) 10/26/2024 Telephone [facility] - Rad/Onc [address] [place] [phone] Argentina Rosenthal, RN Appointment from Last 3 Months Family History Medical History Relation Name Comments Lymphoma Brother Lymphoma Mother Relation Name Status Comments Brother Mother Social History Tobacco Use Types Packs/Day Years Used Date Smoking Tobacco: Never Smokeless Tobacco: Never Tobacco Cessation:Counseling Given: Not Answered Alcohol Use Standard Drinks/Week Comments Never 0 (1 standard drink = 0.6 oz pur e alcohol) AUDIT-C Answer Date Recorded Q1: How often do you have a drink containing alcohol? Never 01/10/2025 Q2: How many drinks containi ng alcohol do you have on a typical day when you are drinking? Patient does not drink Q3: How often do you have si x or more drinks on one occasion? 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 Gender Identity Not on file Sexual Orientation Not on file Last Filed Vital Signs Vital Sign Reading Time Taken Comments Blood Pressure 162/89 01/10/2025 11:20 AM CDT Pulse 83 01/10/2025 11:20 AM CDT Temperature 36.6 C (97.8 F) 01/10/2025 11:20 AM CDT Respiratory Rate 16 01/10/2025 11:20 AM CDT Oxygen Saturation 100% 01/10/2025 11:20 AM CDT Inhaled Oxygen Concentration - - Weight 74.4 kg (164 lb) 01/10/2025 5:57 AM CDT Height 172.7 cm (5' 8) 01/10/2025 5:57 AM CDT Body Mass Index 24.94 01/10/2025 5:57 AM CDT Plan of Treatment Upcoming Encounters Date Type Department Care Team (Late st Contact Info) Description 04/13/2025 11:00 AM CDT Office Visit [facility] - Rad/Onc [address] [place] [phone] Montana Lakhani MD [address] [place] [address] Health Maintenance Due Date Last Done Comments COLOGUARD (AGES 45-75) - COLON CA SCREENING 1960 COLON MONITORING 1960 COLONOSCOPY - COLON CA SCREENING 1960 CT COLONOGRAPHY - COLON CA SCREENING 1960 Colorectal Cancer Screening 1960 FIT - COLON CA SCREENING 1960 FLEX SIG - COLON CA SCREENING 1960 MAMMOGRAM 1960 HIV SCREENING 10/04/1975 HEPATITIS C SCREENING 09/29/1978 DTAP/TDAP/TD VACCINES (1 - Tdap) 10/04/1979 PNEUMOCOCCAL VACCINE 50+ (1 of 2 - PCV) 10/04/1979 PAP SMEAR 1981 DIABETES-STATIN 2000 ZOSTER VACCINE (1 of 2) 2010 Respiratory Syncytial Virus (RSV) Vaccine Pt: or over 60 yrs (1 - Risk 60-74 years 1-dose series) 2020 COVID-19 VACCINE ( season) 2024 05/28/2023, 05/06/2022, 06/29/2021, Additional history exists DIABETES - URINE PROTEIN SCREENING 06/15/2024 DIABETES RETINOPATHY SCREENING 01/05/2025 DIABETES-FOOT EXAM WITH MONOFILAMENT 01/05/2025 DIABETES-HGB A1C 01/05/2025 INFLUENZA VACCINE (#1) 2025 , 05/28/2023, 05/06/2022, Additional history exists DIABETES-SERUM CREATININE 12/12/20252024, 12/12/2024, 12/05/2024, Additional history exists DEPRESSION SCREENING Completed 11/16/2024 HEPATITIS B VACCINE [...] Procedure Name Priority Date/Time Associated Diagnosis Comments CARDIAC RHYTHM STRIP ORDER 01/12/2025 3:50 PM CDT RAD ONC ARIA SESSION SUMMARY Routine 01/10/2025 10:42 AM CDT RAD ONC ARIA SESSION SUMMARY Routine 01/10/2025 10:42 AM CDT GLUCOSE - POINT OF CARE Routine 01/10/2025 8:08 AM CDT LARYNGEAL MASK AIRWAY Routine 01/10/2025 7:34 AM CDT AK INSERT UTERI TANDEMS/OVOIDS 01/10/2025 7:08 AM CDT Diagnosis unknown GLUCOSE - POINT OF CARE Routine 01/10/2025 6:02 AM CDT CARDIAC RHYTHM STRIP ORDER 01/09/2025 6:21 PM CDT CARDIAC RHYTHM STRIP ORDER 01/05/2025 4:23 PM CDT GLUCOSE - POINT OF CARE Routine 01/05/2025 11:58 AM CDT GLUCOSE - POINT OF CARE Routine 01/05/2025 8:00 AM CDT AK INSERT UTERI TANDEMS/OVOIDS 01/05/2025 7:10 AM CDT Diagnosis unknown GLUCOSE - POINT OF CARE Routine 01/05/2025 5:58 AM CDT RAD ONC ARIA SESSION SUMMARY Routine 01/03/2025 11:22 AM CDT RAD ONC ARIA SESSION SUMMARY Routine 01/03/2025 11:21 AM CDT GLUCOSE - POINT OF CARE Routine 01/03/2025 8:05 AM CDT CULTURE URINE STAT 01/03/2025 7:52 AM CDT Diagnosis unknown LARYNGEAL MASK AIRWAY Routine 01/03/2025 7:37 AM CDT AK INSERT UTERI TANDEMS/OVOIDS 01/03/2025 6:35 AM CDT Diagnosis unknown GLUCOSE - POINT OF CARE Routine 01/03/2025 6:08 AM CDT CARDIAC RHYTHM STRIP ORDER 12/29/2024 5:26 PM CDT GLUCOSE - POINT OF CARE Routine 12/27/2024 8:02 AM CDT LARYNGEAL MASK AIRWAY Routine 12/27/2024 7:31 AM CDT HGB HCT PANEL LISA 12/27/2024 6:49 AM CDT Pre-op testing GLUCOSE - POINT OF CARE Routine 12/27/2024 6:48 AM CDT AK INSERT UTERI TANDEMS/OVOIDS 12/27/2024 6:45 AM CDT Diagnosis unknown CARDIAC RHYTHM STRIP ORDER 12/26/2024 6:38 PM CDT RAD ONC ARIA SESSION SUMMARY Routine 12/22/2024 11:27 AM CDT GLUCOSE - POINT OF CARE Routine 12/22/2024 8:10 AM CDT CULTURE URINE STAT 12/22/2024 7:44 AM CDT Diagnosis unknown ENDOTRACHEAL TUBE NOTE Routine 12/22/2024 7:38 AM CDT AK INSERT UTERI TANDEMS/OVOIDS 12/22/2024 7:06 AM CDT Diagnosis unknown GLUCOSE - POINT OF CARE Routine 12/22/2024 6:19 AM CDT from Last 3 Months Results * CARDIAC RHYTHM STRIP ORDER (01/12/2025 3:50 PM CDT) Only the most recent of5 resultswithin the time period is included. Narrative 01/12/2025 3:50 PM CDT Ordered by an unspecified provider. us Scanned Document CARDIAC SERVICES ORDERABLES Fin al Result * Rad Onc Aria Session Summary (01/10/2025 10:42 AM CDT) Course ID [id number] xTnO RAD ONC TREATMENT Course First Treatment Date 12/22/2024 11:26 AM RAD ONC TREATMENT Plan ID Cervix 3000 RAD ONC TREATMENT Plan Fractions Treated to Date 5 RAD ONC TREATMENT Plan Total Fractions Prescribed 5 RAD ONC TREATMENT Plan Total Prescribed Dose 3000 cGy RAD ONC TREATMENT 01/10/2025 10:4 2 AM CDT us Provider Unknown RADIATION ONCOLOGY ORDERABLES F inal Result RAD ONC TREATMENT * Rad Onc Aria Session Summary (01/10/2025 10:42 AM CDT) Course ID [id number] xTnO RAD ONC TREATMENT Course First Treatment Date 12/22/2024 11:26 AM RAD ONC TREATMENT Plan ID Cervix 3000 RAD ONC TREATMENT Plan Fractions Treated to Date 4 RAD ONC TREATMENT Plan Total Fractions Prescribed 5 RAD ONC TREATMENT Plan Total Prescribed Dose 3000 cGy RAD ONC TREATMENT 01/10/2025 10:4 2 AM CDT us Provider Unknown RADIATION ONCOLOGY ORDERABLES F inal Result RAD ONC TREATMENT * (ABNORMAL) GLUCOSE - POINT OF CARE (01/10/2025 8:08 AM CDT) Only the most recent of11 resultswithin the time period is included. Glucose WB/POC 116(H) 70 - 99 mg/dL 01/10/2025 8:14 AM CDT [facility] Specimen Type Arterial/C apillary 01/10/2025 8:14 AM CDT [facility] Blood BLOOD SPECIMEN / Unknown 01/10/2025 8:08 AM CDT 01/10/2025 8:14 AM CDT Saran Troy MD LAB - POINT OF CARE ORDERABLES Final Result Performing Organization Address City/[facility]/ZIP Co de Phone Number [facility] [address] [place] [address] * LARYNGEAL MASK AIRWAY (01/10/2025 7:34 AM CDT) Narrative Wanda Rey APRN-CRNA - 01/10/2025 7:34 AM CDT Wanda Rey APRN-CRNA 01/10/2025 7:34 AM LMA Placement Procedure/LDA Note: Patient Location: OR. LMA Insertion Date/Time: 01/10/2025 7:29 AM Procedure: LMA Pretreatment: 100% O2 Induction: standard IV Patient position: sniffing and supine. Mask Ventilation: not attempted Type: LMA Size: 4 Number of Attempts: 1. Placement verified by: chest auscultation and CO2 monitor Dentition unchanged? Yes Procedure Start Time: 01/10/2025 7:29 AM. Staff Section Anesthesia Provider: Wanda Rey APRN-CRNA, Performed the procedure Jose Ross MD GENERAL ANESTHESIA ORDERABLES Final Result * Rad Onc Aria Session Summary (01/03/2025 11:22 AM CDT) Course ID [id number] xTnO RAD ONC TREATMENT Course First Treatment Date 12/22/2024 11:26 AM RAD ONC TREATMENT Plan ID Cervix 3000 RAD ONC TREATMENT Plan Fractions Treated to Date 3 RAD ONC TREATMENT Plan Total Fractions Prescribed 5 RAD ONC TREATMENT Plan Total Prescribed Dose 3000 cGy RAD ONC TREATMENT 01/03/2025 11:2 2 AM CDT Provider Unknown RADIATION ONCOLOGY ORDERABLES F inal Result RAD ONC TREATMENT * Rad Onc Aria Session Summary (01/03/2025 11:21 AM CDT) Course ID [id number] xTnO RAD ONC TREATMENT Course First Treatment Date 12/22/2024 11:26 AM RAD ONC TREATMENT Plan ID Cervix 3000 RAD ONC TREATMENT Plan Fractions Treated to Date 2 RAD ONC TREATMENT Plan Total Fractions Prescribed 5 RAD ONC TREATMENT Plan Total Prescribed Dose 3000 cGy RAD ONC TREATMENT 01/03/2025 11:2 1 AM CDT Provider Unknown RADIATION ONCOLOGY ORDERABLES F inal Result Performing Organization Address City/[facility] Co de Phone Number RAD ONC TREATMENT * CULTURE URINE (01/03/2025 7:52 AM CDT) Only the most recent of2 resultswithin the time period is included. Culture Urine No growth (<100 CFU/mL) SALOMON 01/04/2025 3:15 PM CDT [facility]CRO[facility] Urine URINE SPECIMEN COLLECTION, CATHETERIZED / Unknown Collection / Unknown 01/03/2025 7:52 AM CDT 01/03/2025 8:41 AM CDT Comment:Pre-op diagnosis: Diagnosis unknown [R69] Saran Troy MD LAB - MICROBIOLOGY ORDERABLES Final Result Performing Organization Address City/[facility]/ZIP Co de Phone Number [facility] [address] [place] [address], [facility] [phone] * LARYNGEAL MASK AIRWAY (01/03/2025 7:37 AM CDT) Narrative Shelby Garcia APRN-TUBE REBUILDER - 01/03/2025 7:37 AM CDShelby Diaz APRN-CRNA 01/03/2025 7:37 AM LMA Placement Procedure/LDA Note: Patient Location: OR. LMA Insertion Date/Time: 01/03/2025 7:29 AM Procedure: LMA Pretreatment: 100% O2 Induction: standard IV Patient position: sniffing. Mask Ventilation: easy Type: LMA Size: 4 Number of Attempts: 1. Cuff inflation pressure (CM H20): 20 Placement verified by: bilateral breath sounds, chest auscultation and CO2 monitor Dentition unchanged? Yes Procedure Start Time: 01/03/2025 7:29 AM. Staff Section Anesthesia Provider: Shelby Garcia APRN-CRNA, Performed the procedure Provider #1: Milly Rausch MD. Milly Rausch MD GENERAL ANESTHESIA ORDERABL ES Final Result * LARYNGEAL MASK AIRWAY (12/27/2024 7:31 AM CDT) Narrative Elier Vidales APRN-CRNA - 12/27/2024 7:31 AM CDT Elier Vidales APRN-CRNA 12/27/2024 7:31 AM LMA Placement Procedure/LDA Note: Patient Location: OR. Procedure: LMA Pretreatment: 100% O2 Induction: standard IV Patient position: supine. Mask Ventilation: not attempted Type: LMA Size: 4 Number of Attempts: 1. Placement verified by: bilateral breath sounds, chest auscultation and CO2 monitor Dentition unchanged? Yes Staff Section Anesthesia Provider: Elier Vidales APRN-CRNA, Performed the procedure Milly Rausch MD GENERAL ANESTHESIA ORDERABL ES Final Result * (ABNORMAL) HGB HCT PANEL (12/27/2024 6:49 AM CDT) Hemoglobin 10.7(L) 11.9 - 15.8 g/dL 12/27/2024 7:06 AM CDT [facility] Hematocrit 30.2(L) 34.8 - 46.1 % 12/27/2024 7:06 AM CDT [facility] Blood BLOOD SPECIMEN / Unknown Venipuncture / Unknown 12/27/2024 6:49 AM CDT 12/27/2024 7:03 AM CDT Jerry Deleon MD LAB - HEMATOLOGY ORDERABLES Teresa l Result [facility] [address] [place] [address] * Rad Onc Aria Session Summary (12/22/2024 11:27 AM CDT) Course ID [id number] xTnO RAD ONC TREATMENT Course First Treatment Date 12/22/2024 11:26 AM RAD ONC TREATMENT Plan ID Cervix 3000 RAD ONC TREATMENT Plan Fractions Treated to Date 1 RAD ONC TREATMENT Plan Total Fractions Prescribed 5 RAD ONC TREATMENT Plan Total Prescribed Dose 3000 cGy RAD ONC TREATMENT 12/22/2024 11:2 7 AM CDT Result [facility] Provider Unknown RADIATION ONCOLOGY ORDERABLES F inal Result Performing Organization Address City/[facility] Co de Phone Number RAD ONC TREATMENT * ETT LINE PERFORMABLE (12/22/2024 7:38 AM CDT) Narrative José Antonio Child APRN-CRNA - 12/22/2024 7:38 AM CDT José Antonio Child APRN-CRNA 12/22/2024 7:40 AM Endotracheal Tube Placement: Patient Location: OR. Intubation Event Date/Time: 12/22/2024 7:27 AM Procedure: intubation ([id number]) Procedure Section: Sedation: under general anesthesia. Indications for Airway Management: anesthesia Induction: standard IV and rapid sequence Patient Position: sniffing Mask Ventilation: not attempted. Blade Type: Kristopher Blade Size: 3 Laryngoscopy View: grade 1 (full cords) Nasal Airway Size: 7 Tube: endotracheal tube Placement: oral Tube type: cuff - inflated Tube Size (MM): 7 Depth of Insertion (CM): 21 Measured From: lips Cuff Inflated With: air Number of Attempts: 1. Placement Verified By: direct visualization CXR Findings: ETT in proper place. Tube secured with: adhesive tape. Dentition unchanged? Yes Difficult Airway? No. Procedure Start Time: 12/22/2024 7:27 AM. 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
--- OUTSIDE RECORDS SUMMARY | 2025-01-17 14:32 | XMS_ITS | Patient Health Record ---
Author Organization [facility] Address [address] [place], [place] [id number] Care Team Providers Care Staff Forester Name Role Phone JESUS MANUEL AHMADI Unavailable [phone] Diann Crain Unavailable Unavailable SYDNICHANDNIJESUS MANUEL Unavailable [phone] Allergies Allergen (clinical drug ingredient) Drug/Non Drug [...] 10/06/2024 Encounters Encounter Location Date Provider Diagnosis [address] [id number] 08/04/2024 JESUS MANUEL AHMADI Tinea unguium B35.1 ; Pain in right toe(s) M79.674 ; Pain in left toe(s) M79.675 ; Atherosclerosis of [place] arteries of extremities with intermittent claudication, bilateral legs I70.213 and Type 2 diabetes mellitus with other circulatory complications E11.59 [facility] [address] [place] [id number] 10/06/2024 JESUS MANUEL MCDONOUGH Atherosclerosis of [place] arteries of extremities with intermittent claudication, bilateral [...] and necrotic tissue removed 10/06/2024 Atherosclerosis of [place] arteries of extremities with intermittent claudication, bilateral [...] toe(s) (ICD-10 - M79.675) 08/04/2024 Atherosclerosis of [place] arteries of extremities with intermittent claudication, bilateral [...] Coverage Start Date Coverage End Date [facility] ([facility]) ATTN CLAIMS [address] [place] [address] [id number] [place] Self - patient is the insured Medical (General) History Medical History History ICD Code neuropathy Arthritis Diabetic varicose veins
--- OUTSIDE RECORDS SUMMARY | 2025-01-17 14:32 | XMS_ITS ---
Author Organization [facility] Address [address] [facility] [place] [address] Care Team Providers Care Tire Rebuilder Name Role Phone Diann Crain SENIOR CONTROLS TECHNICIAN-PROTOTYPE FABRICATOR Primary Care Provid er Active Problems Problem Noted Date Diagnosed Date Diabetes mellitus, type 2 01/05/2025 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 x 12/27/2024 Current Treatment and Therapy Plans No current plan information found. Past Treatment and Therapy Plans No past plan information found. Radiation Treatments * Course [id number] 12/22/2024 - 01/10/2025 Treatment Period Energy Fraction Dose Fractions Total Dose Plans Planned Cervix 3000 12/22/2024 - 01/10/2025 5 / 3,000 cGy Reference Points Delivered
--- OUTSIDE RECORDS SUMMARY | 2025-01-17 14:32 | XMS_ITS | Clinical Summary ---
Author Organization [facility] Address [address] [place] [address] Care Team Providers Care Director Of Housing Name Role Phone Chu Lorenzo MD Primary [...] Sex Assigned at Female 04/29/2018 9:29 PM EXAMINATION SCORER Legal Sex Female 5:33 PM EXAMINATION SCORER Gender Identity Female 04/29/2018 9:29 PM EXAMINATION SCORER Sexual Orientation Straight 04/29/2018 9: 29 PM EXAMINATION SCORER Last Filed Vital Signs Vital Sign Reading Time Taken Comments Blood Pressure 144/79 05/04/2018 1:50 PM EXAMINATION SCORER Pulse 69 05/04/2018 1:50 PM EXAMINATION SCORER Temperature 36.6 C (97.9 F) 05/04/2018 1:50 PM EXAMINATION SCORER Respiratory Rate 18 05/04/2018 1:50 PM EXAMINATION SCORER Oxygen Saturation 100% 05/04/2018 1:50 PM EXAMINATION SCORER Inhaled Oxygen Concentration - - Weight 86.8 kg (191 lb 5.8 oz) 05/04/2018 4:43 A M EXAMINATION SCORER Height 172.7 cm (5' 8) 04/29/2018 9:12 PM EXAMINATION SCORER Body Mass Index 29.1 04/29/2018 9:12 PM EXAMINATION SCORER Plan of Treatment Health Maintenance Due Date [...] patient's age to complete this topic Insurance [facility] [address] Advance Directives * Full Code (Latest Code Status on File) Date Activated Date Inactivated Comments 04/29/2018 11:48 PM 05/04/2018 7:30 PM Care Teams Director Of Housing Relationship Specialty Start Date End Date Chu Lorenzo MD PCP - General SURGERY 04/24/18
--- OUTSIDE RECORDS SUMMARY | 2025-01-17 14:32 | XMS_ITS ---
Author Organization [facility] Address [address] [place], [place] [address] Care Team Providers Care Assurance Assistant Name Role Phone DAIANA JESUS MANUEL Unavailable [phone] Diann Crain Unavailable Unavailable Allergies Allergen (clinical [...] Encounters Encounter Location Date Provider Diagnosis [address] [id number] 08/04/2024 JESUS MANUEL AHMADI Tinea unguium B35.1 ; Pain in right toe(s) M79.674 ; Pain in left toe(s) M79.675 ; Atherosclerosis of yocha dehe arteries of extremities with intermittent claudication, bilateral [...] toe(s) (ICD-10 - M79.675) 08/04/2024 Atherosclerosis of yocha dehe arteries of extremities with intermittent claudication, bilateral [...] Ida GRANDE RDOB: 1 (64 yo F)Acc No.[id number]:08/04/2024 Progress Notes Patient: Ida KNOWLES Kassie Provider: Oliver Ahmadi DPM :1960 A ge:63 Y S ex:Female Date:08/04/2024 Address:[address] [facility], [address] [place], [place] [id number] Subjective: * Chief Complaints: * 1 . [...] Dr. Breann gama as 07/2024., I nitials [facility]. * ROS: G eneral / [...] Edema: N o edema bilateral. N eurologic: [place]-Weinstin 5.07 monofilament d iminished protective sensation via [...] - M79.675 4 . A therosclerosis of yocha dehe arteries of extremities with intermittent claudication, bilateral [...] develop.) * Billing Information: * Visit Code: 63258 Office Visit, New Pt., Level 3. * Procedure Codes: * Electronic signature of JESUS MANUEL AHMADI DPM on 01/17/2025 at 02:31 PM CDT Sign off status: Pending * Provider: Oliver Ahmadi DPM Date: 0 08/04/2024 Generated for Sara ovalle/Bowen/Aranza on: 0 01/17/2025 02:31 PM CDT History and Physical Notes * [...] debris. They are painful to palpation Neurologic Alexandria-Weinstin 5.07 monofilamen t diminished protective sensation via [...]
--- NOTE | 2025-01-17 14:38 | ED.NAVMDI ---
HPI - Nausea/Vomiting/Diarrhea General Chief complaint: Nausea/Vomiting/Diarrhea Stated complaint: N/V/D Time Seen by Provider: 01/17/25 14:37 Source: patient Mode of arrival: ambulatory Limitations: no limitations History of Present Illness HPI Narrative: 64 years old white female came to the ED by private car complaining of nausea, vomiting and diarrhea started 3 days ago. Last chemotherapy was January 11, Patient denies any fever or chills or abdominal pain or urinary symptoms. Patient reports vomiting 2-3 times per day for the last 3 days, not today. Diarrhea 2-4 times per day for the last 3 days. Patient currently on a Imodium Patient had similar similar symptoms after having chemotherapy in the past and usually go to the consult center for IV fluid. Patient is not able to go to the cancer center because she is generally tired and weak. History of cervical cancer diagnosed on August 2024, started chemo and radiation therapy on October 2024. MD elicited complaint: nausea, vomiting and diarrhea Description of diarrhea: watery Related Data Home Medications ?Medication ?Instructions ?Recorded ?Confirmed ?Last Taken ?Type gabapentin 300 mg capsule mg 01/17/25 Unknown History Allergies Allergy/AdvReac Type Severity Reaction Status Date / Time Yeast Allergy Severe Anaphylactic Verified 01/17/25 15:06 Shock amoxicillin Allergy Intermediate unknown Verified 01/17/25 15:06 erythromycin base Allergy Intermediate unknown Verified 01/17/25 15:06 Sulfa (Sulfonamide Allergy Intermediate Unknown Verified 01/17/25 15:06 Antibiotics) Penicillins Allergy Unknown Anaphylaxis Verified 01/17/25 15:06 Review of Systems Review of Systems: All systems reviewed & are unremarkable except as noted in HPI and below PMFSH Past Medical History Medical History Colon cancer screening Migraines Diabetes History of shingles History of chicken pox Surgical History Surgical History History of incision and drainage 04/18/24 Complex incision and drainage of diabetic left foot abscess. Dr. Dominique H/O oral surgery Social History Social History Smoking status: Never smoker Tobacco type: cigarettes Second hand tobacco smoke exposure: No Alcohol intake: never Alcohol use details: Allergy to beer Substance use: never Substance use type: does not use Do You Feel Safe in your Home?: Yes Lack of Transportation: YES Lack of Food: Never True Current Housing: I Have Housing Concerned About Future Housing: No Difficulty Paying Gas/Electric Bills: No Difficulty Paying for Meds: No Currently Unemployed: No Education: High School Diploma/GED Difficulty w/ Childcare or Family Care: No Living arrangements: alone Spiritual care concerns: No Exam Narrative: General appearance: Well-developed, well-nourished, looks weak Skin: pale Head: Normocephalic, nontraumatic Eyes: Clear conjunctiva ENT: Oropharynx normal, ears normal, nose normal Neck: Supple, nontender Chest and respiratory: Airway patent, no respiratory distress, no accessory muscle use Heart: Regular rate/rhythm Abdomen: Soft, nontender, no organomegaly, quiet bowel sounds Vascular: Normal peripheral pulses, normal capillary refill. Musculoskeletal: Normal range of motion, nontender back Neurologic: Alert and oriented ?3, FIELD SERVICE CONSULTANT is normal as tested, no gross motor deficit MDM - Nausea/Vomiting/Diarrhea MDM Narrative Medical decision making narrative: Blood workup today includes CBC and CMP showed WBC 3.9, hemoglobin 9.5, platelet 129, sodium 128 compared to 126 1 month ago, BUN 30 Creatinine 1.5 compared to 1.81 ONE month ago PATIENT FEELING MUCH BETTER AFTER RECEIVING 2 L OF NORMAL SALINE IV, 4 MG OF ZOFRAN IV. THE PT WAS DISCHARGED TO HOME.THE PT,S CONDITION UPON DISCHARGE WAS FAIR,EDUCATION WAS PROVIDED TO THE PT IN REFERENCE TO THE FINAL IMPRESSION,DISCHARGE STUDY RESULTS,TREATMENT,PROGNOSIS AND NEED FOR FOLLOW UP . Differential Diagnosis Differential diagnosis: Likely gastroenteritis, drug-induced nausea and vomiting and dehydration Medical Records Attestation: I reviewed the patient's medical records. Lab Data Attestation: I reviewed the patient's lab results. Critical Care Time Critical Care Time Critical Care Time: Yes Total Critical Care Time: 30 Discharge Plan Discharge Clinical Impression: Chemotherapy induced diarrhea, Chemotherapy induced nausea and vomiting Patient Disposition: Home Condition: Improved Instructions: Acute Nausea and Vomiting (ED) Additional Instructions: RETURN IF SYMPTOMS ARE WORSENING , CALL YOUR FAMILY PHYSICIAN FOR APPOINTMENT, TAKE TYLENOL NEEDED FOR ACHES AND PAIN, CONTINUE HOME MEDICATIONS. Patient Language: Sri Lankan Prescriptions: New ondansetron 4 mg tablet,disintegrating 4 mg PO DAILY 3 Days Qty: 10 0RF No Action gabapentin 300 mg capsule levofloxacin 500 mg tablet 500 mg PO DAILY 6 Days Qty: 6 0RF (DME) blood-glucose meter Kit See Rx Instructions .Route Qty: 1 0RF Rx Instructions: As directed insulin glargine [Lantus Solostar U-100 Insulin] 100 unit/mL (3 mL) insulin pen 15 unit subcut QPM Qty: 15 3RF (DME) lancets [Acti-Estuardo Lancets] 28 gauge misc See Rx Instructions .Route Qty: 100 3RF Rx Instructions: BID metformin 500 mg tablet extended release 24 hr 500 mg PO BID Qty: 90 5RF (DME) Blood Glucose Test Strip See Rx Instructions .Route Qty: 50 3RF Rx Instructions: BID insulin lispro 100 unit/mL insulin pen See Rx Instructions subcut TID MDD 30 units Qty: 15 3RF Rx Instructions: SS BS 150-200: 2 units; BS 201-250: 4 units; BS 251-300: 6 units; 301-350: 8 units; 351-400: 10 units (DME) lancets [On-The-Go Lancets] 30 gauge misc See Rx Instructions .Route Qty: 100 1RF Rx Instructions: ACHS (DME) FreeStyle Kim 3 Leslie Misc See Rx Instructions .Route Qty: 1 0RF Rx Instructions: As directed (DME) FreeStyle Kim 3 Sensor Device See Rx Instructions .Route Qty: 6 12RF Rx Instructions: As directed ondansetron 4 mg tablet,disintegrating 4 mg PO Q8H PRN (Reason: nausea and vomiting) Qty: 30 0RF magnesium oxide 400 mg (241.3 mg magnesium) tablet See Rx Instructions .ROUTE .COMPLEX Qty: 120 1RF Dose Instruction: TAKE 1 TABLET BY MOUTH TWICE A DAY Rx Instructions: TAKE 1 TABLET BY MOUTH TWICE A DAY Follow-up/Referrals: UNKNOWN,DOCTOR [Non-Staff] -
[2025-01-17] MEDS: ONDANSETRON INJ 4 MG/2 ML VIAL IV PUSH (14:53)
[2025-01-17] MEDS: SODIUM CHLORIDE 0.9% IV 2,000 ML 999 ML IV CONT (14:53)
[2025-01-17 14:58] LABS: Hematocrit 27.9 % (35.0-49.0); Hemoglobin 9.5 g/dL (12.0-15.0); Mean Corpuscular HGB Conc 34.1 g/dL (32-36); Mean Corpuscular Hemoglobin 29.8 pg (27.0-31.0); Mean Corpuscular Volume 87.5 fL (78.0-102.0); Platelet Count Result 129 K/mm3 (150-420); Red Blood Count 3.19 M/mm3 (4.20-5.40); White Blood Count 3.9 K/mm3 (4.8-10.8)
--- OUTSIDE RECORDS SUMMARY | 2025-01-17 15:07 | XMS_ITS ---
Author Organization [facility] Address [address] [place] [address] Phone Care Team Providers Care Transit Coach Operator Name Role Phone Diann Crain BRANCH LENDING OFFICER, MILLWRIGHT APPRENTICE Primary Care Provi scot Antonia Rodriguez MD Unavailable [phone] Malvin Estrada MD Unavailable [phone] Taqueria Gresham MD Unavailable [phone] Montana Lakhani MD Unavailable [phone] Active Problems Problem Noted Date Diagnosed Date [...]
--- OUTSIDE RECORDS SUMMARY | 2025-01-17 15:07 | XMS_ITS | Clinical Summary ---
Author Organization [facility] Address [address] [facility] [place] [address] Care Team Providers Care Mine Geologist Name Role Phone Diann Crain INVENTORY REPRESENTATIVE-FURNACE RELINER Primary Care Provid er Source Comments [facility],non-owned Affiliates and Associated Physician Practices is amultiple site organization consisting of ambulatory clinics and hospital sitesin [place], [place], [place] and [place]. This disclosure is being madepursuant to the Care Everywhere program and may not contain all information available regarding this patient. Last updated 18.[facility] Allergies Active Allergy Reactions Criticality Noted Date [...] Office Visit [facility] - Rad/Onc [address] [place] [phone] Montana Lakhani MD 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 (HCC) (Primary Dx) 01/10/2025 7:22 AM CDT Anesthesia Event [facility] [address] [place] [address] Wally Serrano MD Levin, Vitaly F, MD 01/10/2025 7:15 AM CDT - 01/10/2025 8:24 AM CDT Surgery [facility] [address] [place] [phone] Saran Troy MD TANDEM AND RING PLACEMENT 01/10/2025 5:32 AM CDT - 01/10/2025 11:53 AM CDT Hospital Encounter [facility] [address] [place] [address] Saran Troy MD Surgery General Discharge Disposition: Home or Self Care 01/10/2025 Travel 01/05/2025 9:30 AM CDT Office Visit [facility] - Rad/Onc [address] [place] [phone] Montana Lakhani MD 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 (HCC) (Primary Dx) 01/05/2025 7:25 AM CDT Anesthesia Event [facility] [address] [place] [address] Milly Rausch MD Levin, Vitaly F, MD 01/05/2025 7:15 AM CDT - 01/05/2025 8:45 AM CDT Surgery [facility] [address] [place] [address] Antonia Rodriguez MD PLACEMENT OF TANDEM AND RING 01/05/2025 5:10 AM CDT - 01/05/2025 12:21 PM CDT Hospital Encounter [facility] [address] [place] [address] Antonia Rodriguez MD Surgery General Discharge Disposition: Home or Self Care 01/05/2025 Travel 01/03/2025 9:30 AM CDT Office Visit [facility] - Rad/Onc [address] [place] [phone] Montana Lakhani MD 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 (HCC) (Primary Dx) 01/03/2025 7:21 AM CDT Anesthesia Event [facility] [address] [place] [phone] Milly Rausch MD Will, Margaret HKISHOREN-NATURAL GAS INSPECTOR 01/03/2025 7:15 AM CDT - 01/03/2025 8:24 AM CDT Surgery [facility] [address] [place] [address] Saran Troy MD PLACEMENT OF TANDEM AND RING 01/03/2025 5:26 AM CDT - 01/03/2025 12:20 PM CDT Hospital Encounter [facility] [address] [place] [phone] Saran Troy MD Surgery General Discharge Disposition: Home or Self Care 12/27/2024 9:30 AM CDT Office Visit [facility] - Rad/Onc [address] [place] [phone] Montana Lakhani MD 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 (HCC) (Primary Dx) 12/27/2024 7:23 AM CDT Anesthesia Event [facility] [address] [place] [phone] Milly Rausch MD 12/27/2024 7:15 AM CDT - 12/27/2024 8:15 AM CDT Surgery [facility] [address] [place] [address] Montana Villa MD PLACEMENT OF TANDEM AND RINGS 12/27/2024 5:50 AM CDT - 12/27/2024 12:45 PM CDT Hospital Encounter [facility] [address] [place] [address] Montana Villa MD Surgery General Discharge Disposition: Home or Self Care 12/27/2024 Travel 12/26/2024 Travel 12/22/2024 9:30 AM CDT Office Visit [facility] - Rad/Onc [address] [place] [phone] Montana Lakhani MD 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 (HCC) (Primary Dx) 12/22/2024 7:21 AM CDT Anesthesia Event [facility] [address] [place] [phone] Jay Jones MD Hogan, Steven 12/22/2024 7:15 AM CDT - 12/22/2024 8:21 AM CDT Surgery [facility] [address] [place] [address] Lamont Cueva MD PLACEMENT OF TANDEM AND RING 12/22/2024 5:42 AM CDT - 12/22/2024 12:45 PM CDT Hospital Encounter [facility] [address] [place] [address] Lamont Cueva MD Surgery General Discharge Disposition: Home or Self Care 12/22/2024 Travel 12/21/2024 Travel 12/21/2024 Telephone [facility] - ASSOCIATE PROFESSOR OF THEATRE [address] [facility] [address] [place] [phone] Antonia Rodriguez MD Question 12/20/2024 Telephone [facility] - Rad/Onc [address] [place] [phone] Argentina Rosenthal RN Appointment 12/20/2024 Travel 12/19/2024 Telephone [facility] - ASSOCIATE PROFESSOR OF THEATRE [address] [facility] [place] [phone] Montana Villa MD Question 12/13/2024 Telephone [facility] - Rad/Onc [address] [place] [phone] Argentina Rosenthal, RN Appointment 12/12/2024 Travel 12/02/2024 Telephone [facility] - Rad/Onc [address] [place] [phone] Argentina Rosenthal, RN Appointment 11/16/2024 1:00 PM CDT - 12/18/2024 11:59 PM CDT Hospital Encounter [facility] - Radiation Oncology [address] [place] [phone] Montana Lakhani MD Discharge Disposition: Home or Self Care 11/16/2024 1:00 PM CDT Office Visit [facility] - Rad/Onc [address] [place] [phone] Montana Lakhani MD 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 (HCC) (Primary Dx) 11/16/2024 Travel 11/04/2024 Travel 10/26/2024 Telephone [facility] - Rad/Onc [address] [place] [phone] Argentina Rosenthal, RN Follow-up 10/26/2024 Orders Only [facility] - ASSOCIATE PROFESSOR OF THEATRE [address] [facility] [address] [place] [phone] Antonia Rodriguez MD Malignant neoplasm of cervix, unspecified site (HCC) 10/26/2024 Telephone [facility] - Rad/Onc [address] [place] [phone] Argentina Rosenthal, RN Appointment from [...] on file Legal Sex Female 1:25 PM BICYCLE REPAIRMAN Gender Identity Not on file Sexual Orientation [...] Visit [facility] - Rad/Onc [address] [place] [phone] Montana Lakhani MD [address] [place] [address] Health Maintenance Due Date Last [...] MASK AIRWAY Routine 01/10/2025 7:34 AM CDT NE INSERT UTERI TANDEMS/OVOIDS 01/10/2025 7:08 AM CDT Diagnosis unknown GLUCOSE - POINT OF CARE Routine 01/10/2025 6:02 AM CDT CARDIAC RHYTHM STRIP ORDER 01/09/2025 6:21 PM CDT CARDIAC RHYTHM STRIP ORDER 01/05/2025 4:23 PM CDT GLUCOSE - POINT OF CARE Routine 01/05/2025 11:58 AM CDT GLUCOSE - POINT OF CARE Routine 01/05/2025 8:00 AM CDT NE INSERT UTERI TANDEMS/OVOIDS 01/05/2025 7:10 AM CDT [...] MASK AIRWAY Routine 01/03/2025 7:37 AM CDT NE INSERT UTERI TANDEMS/OVOIDS 01/03/2025 6:35 AM CDT [...] OF CARE Routine 12/27/2024 6:48 AM CDT NE INSERT UTERI TANDEMS/OVOIDS 12/27/2024 6:45 AM CDT Diagnosis unknown CARDIAC RHYTHM STRIP ORDER 12/26/2024 6:38 PM CDT RAD ONC ARIA SESSION SUMMARY Routine 12/22/2024 11:27 AM CDT GLUCOSE - POINT OF CARE Routine 12/22/2024 8:10 AM CDT CULTURE URINE STAT 12/22/2024 7:44 AM CDT Diagnosis unknown ENDOTRACHEAL TUBE NOTE Routine 12/22/2024 7:38 AM CDT NE INSERT UTERI TANDEMS/OVOIDS 12/22/2024 7:06 AM CDT [...] Summary (01/10/2025 10:42 AM CDT) Course ID [id number] xTnO RAD ONC TREATMENT Course First Treatment [...] Summary (01/10/2025 10:42 AM CDT) Course ID [id number] xTnO RAD ONC TREATMENT Course First Treatment [...] - 99 mg/dL 01/10/2025 8:14 AM CDT [facility] Specimen Type Arterial/C apillary 01/10/2025 8:14 AM CDT [facility] Blood BLOOD SPECIMEN / Unknown 01/10/2025 8:08 AM CDT 01/10/2025 8:14 AM CDT Saran Troy MD LAB - POINT OF CARE ORDERABLES Final Result Performing Organization Address City/[facility]/ZIP Co de Phone Number [facility] [address] [place] [address] * LARYNGEAL MASK AIRWAY (01/10/2025 7:34 AM [...] Summary (01/03/2025 11:22 AM CDT) Course ID [id number] xTnO RAD ONC TREATMENT Course First Treatment [...] Summary (01/03/2025 11:21 AM CDT) Course ID [id number] xTnO RAD ONC TREATMENT Course First Treatment Date 12/22/2024 11:26 AM RAD ONC TREATMENT Plan ID Cervix 3000 RAD ONC TREATMENT Plan Fractions Treated to Date 2 RAD ONC TREATMENT Plan Total Fractions Prescribed 5 RAD ONC TREATMENT Plan Total Prescribed Dose 3000 cGy RAD ONC TREATMENT 01/03/2025 11:2 1 AM CDT Provider Unknown RADIATION ONCOLOGY ORDERABLES F inal Result Performing Organization Address City/[facility] Co de Phone Number RAD ONC TREATMENT * CULTURE URINE (01/03/2025 7:52 AM CDT) Only the most recent of2 resultswithin the time period is included. Culture Urine No growth (<100 CFU/mL) SAL[place] 01/04/2025 3:15 PM CDT [facility] MICROBIOLOG[facility] Urine URINE SPECIMEN COLLECTION, CATHETERIZED / Unknown Collection / Unknown 01/03/2025 7:52 AM CDT 01/03/2025 8:41 AM CDT Comment:Pre-op diagnosis: Diagnosis unknown [R69] Saran Troy MD LAB - MICROBIOLOGY ORDERABLES Final Result Performing Organization Address City/[facility]/ZIP Co de Phone Number [facility] MICROBIOLOGY [address] [place] [address], [facility] [phone] * LARYNGEAL MASK AIRWAY (01/03/2025 7:37 AM CDT) Narrative Shelby Garcia APRN-NATURAL GAS INSPECTOR - 01/03/2025 7:37 AM CDShelby Diaz APRN-CRNA [...] - 15.8 g/dL 12/27/2024 7:06 AM CDT [facility] Hematocrit 30.2(L) 34.8 - 46.1 % 12/27/2024 7:06 AM CDT [facility] Blood BLOOD SPECIMEN / Unknown Venipuncture / Unknown 12/27/2024 6:49 AM CDT 12/27/2024 7:03 AM CDT Jerry Deleon MD LAB - HEMATOLOGY ORDERABLES Teresa l Result [facility] [address] [place] [address] * Rad Onc Aria Session Summary (12/22/2024 11:27 AM CDT) Course ID [id number] xTnO RAD ONC TREATMENT Course First Treatment Date 12/22/2024 11:26 AM RAD ONC TREATMENT Plan ID Cervix 3000 RAD ONC TREATMENT Plan Fractions Treated to Date 1 RAD ONC TREATMENT Plan Total Fractions Prescribed 5 RAD ONC TREATMENT Plan Total Prescribed Dose 3000 cGy RAD ONC TREATMENT 12/22/2024 11:2 7 AM CDT Result [facility] Provider Unknown RADIATION ONCOLOGY ORDERABLES F inal Result Performing Organization Address City/[facility] Co de Phone Number RAD ONC TREATMENT * ETT LINE PERFORMABLE (12/22/2024 7:38 AM CDT) Narrative José Antonio Child APRN-CRNA - 12/22/2024 7:38 AM CDT José Antonio Child APRN-CRNA 12/22/2024 7:40 AM Endotracheal Tube Placement: Patient Location: OR. Intubation Event Date/Time: 12/22/2024 7:27 AM Procedure: intubation ([id number]) Procedure Section: Sedation: under general anesthesia. Indications [...] Last 3 Months Insurance ANTHEM Care Teams Mine Geologist Relationship Specialty Start Date End Date Diann Crain, INVENTORY REPRESENTATIVE-FURNACE RELINER [address] [place] [address] PCP - General Nurse Practitioner Family 09/15/24
--- OUTSIDE RECORDS SUMMARY | 2025-01-17 15:07 | XMS_ITS | Clinical Summary ---
Author Organization [facility] Address [address] [place] [address] Phone Care Team Providers [employer] Architect Name Role Phone DavidbeatrisDiann FIFTH HAND, BREAKFAST ATTENDANT Primary Care Provi scot Antonia Rodriguez MD Unavailable [phone] Malvin Estrada MD Unavailable [phone] Taqueria Gresham MD Unavailable [phone] Montana Lakhani MD Unavailable [phone] Allergies Active Allergy Reactions Criticality Noted Date [...] [facility] [address] [place] [address] Malvin Estrada MD Medication Refill 12/23/2024 Telephone [facility] [address] [place] [phone] Bryanna Smith APRN, CNP 12/19/[address] [facility] [address] [place] [phone] Malvin Estrada MD 12/19/[address] [facility] [address] [place] [phone] Malvin Estrada MD 12/12/2024 8:30 AM CDT Clinical Support [facility] [address] [place] [phone] Bryanna Smith APRN, NELIDA Cervical cancer, FIGO stage IB (HCC) (Primary Dx); Cervical cancer, FIGO stage IIB (HCC); Dysuria Discharge Disposition: Discharged to home or Selfcare 12/12/2024 8:15 AM CDT Office Visit [facility] [address] [place] [phone] Bryanna Smith APRN, NELIDA Cervical cancer, FIGO stage IB (HCC) (Primary Dx); History of therapeutic radiation; History of cancer chemotherapy; Dysuria; Chemotherapy induced diarrhea; Chemotherapy-induce d nausea Discharge Disposition: Discharged to home or Selfcare 12/12/2024 Travel 12/10/2024 Travel 12/07/2024 Documentation Only [facility] [address] [place] [phone] Yanet Black, BARI 12/05/2024 9:00 AM CDT Clinical Support [facility] [address] [place] [phone] Malvin Estrada MD Cervical cancer, FIGO stage IB (HCC) (Primary Dx); Cervical cancer, FIGO stage IIB (HCC) Discharge Disposition: Discharged to home or Selfcare 12/05/2024 9:00 AM CDT Office Visit [facility] [address] [place] [phone] Taqueria Gresham MD Butler, David Ferrell, MD Cervical cancer, FIGO stage IIB (HCC) (Primary Dx); Encounter for radiotherapy; Patient on combined chemotherapy and radiation Discharge Disposition: Discharged to home or Selfcare 12/05/2024 8:45 AM CDT Clinical Support [facility] [address] [place] [phone] Taqueria Gresham MD History of therapeutic radiation (Primary Dx); History of cancer chemotherapy; Cervical cancer, FIGO stage IB (HCC) Discharge Disposition: Discharged to home or Selfcare 12/05/2024 Travel 12/03/2024 Travel 12/02/2024 10:00 AM CDT Clinical Support [facility] [address] [place] [phone] Taqueria Gresham MD Discharge Disposition: Discharged to home or Selfcare 12/02/2024 Travel 12/01/2024 10:00 AM CDT Clinical Support [facility] [address] [place] [phone] Taqueria Gresham MD Discharge Disposition: Discharged to home or Selfcare 12/01/2024 Travel 11/30/2024 10:00 AM CDT Clinical Support [facility] [address] [place] [phone] Taqueria Gresham MD Discharge Disposition: Discharged to home or Selfcare 11/30/2024 Travel 11/29/2024 10:00 AM CDT Clinical Support [facility] [address] [place] [phone] Taqueria Gresham MD Discharge Disposition: Discharged to home or Selfcare 11/29/2024 Travel 11/28/2024 10:15 AM CDT Office Visit [facility] [address] [place] [phone] Taqueria Gresham MD Encounter for radiotherapy (Primary Dx); Patient on combined chemotherapy and radiation; Cervical cancer, FIGO stage IIB (HCC); Loose stools Discharge Disposition: Discharged to home or Selfcare 11/28/2024 10:00 AM CDT Clinical Support [facility] [address] [place] [phone] Taqueria Gresham MD Discharge Disposition: Discharged to home or Selfcare 11/28/2024 9:00 AM CDT Clinical Support [facility] [address] [place] [phone] Malvin Estrada MD Cervical cancer, FIGO stage IIB (HCC) (Primary Dx); Cervical cancer, FIGO stage IB (HCC) Discharge Disposition: Discharged to home or Selfcare 11/28/2024 Travel 11/27/2024 Travel 11/26/2024 Travel 11/25/2024 10:00 AM CDT Clinical Support [facility] [address] [place] [phone] Taqueria Gresham MD Discharge Disposition: Discharged to home or Selfcare 11/25/2024 Travel 11/24/2024 11:00 AM CDT Clinical Support [facility] [address] [place] [phone] Taqueria Gresham MD Cervical cancer, FIGO stage IIB (HCC) (Primary Dx); Diarrhea, unspecified type Discharge Disposition: Discharged to home or Selfcare 11/24/2024 10:00 AM CDT Documentation Only [facility] [address] [place] [phone] Taqueria Gresham MD Cervical cancer, FIGO stage IIB (HCC) Discharge Disposition: Discharged to home or Selfcare 11/24/2024 Travel 11/23/2024 10:00 AM CDT Clinical Support [facility] [address] [place] [phone] Malvin Estrada MD Diarrhea, unspecified type (Primary Dx) Discharge Disposition: Discharged to home or Selfcare 11/23/2024 10:00 AM CDT Clinical Support [facility] [address] [place] [phone] Taqueria Gresham MD Discharge Disposition: Discharged to home or Selfcare 11/23/2024 9:15 AM CDT Office Visit [facility] [address] [place] [phone] Malvin Estrada MD Baxley, Brandy M, APRN, BREAKFAST ATTENDANT Cervical cancer, FIGO stage IIB (HCC) (Primary Dx); Neuralgic pain; Diarrhea, unspecified type Discharge Disposition: Discharged to home or Selfcare 11/23/2024 Travel 11/22/2024 10:00 AM CDT Clinical Support [facility] [address] [place] [phone] Taqueria Gresham MD Discharge Disposition: Discharged to home or Selfcare 11/22/2024 Travel 11/21/2024 10:15 AM CDT Office Visit [facility] [address] [place] [phone] Taqueria Gresham MD Encounter for radiotherapy (Primary Dx); Patient on combined chemotherapy and radiation; Cervical cancer, FIGO stage IIB (HCC); Loose stools Discharge Disposition: Discharged to home or Selfcare 11/21/2024 10:00 AM CDT Clinical Support [facility] [address] [place] [phone] Taqueria Gresham MD Discharge Disposition: Discharged to home or Selfcare 11/21/2024 9:00 AM CDT Clinical Support [facility] [address] [place] [address] Malvin Estrada MD Cervical cancer, FIGO stage IIB (HCC) (Primary Dx) Discharge Disposition: Discharged to home or Selfcare 11/21/2024 Travel 11/19/2024 Travel 11/18/2024 10:00 AM CDT Clinical Support [facility] [address] [place] [phone] Taqueria Gresham MD Discharge Disposition: Discharged to home or Selfcare 11/18/2024 Travel 11/17/2024 10:00 AM CDT Clinical Support [facility] [address] [place] [address] Taqueria Gresham MD Discharge Disposition: Discharged to home or Selfcare 11/17/2024 Travel 11/16/2024 10:00 AM CDT Clinical Support [facility] [address] [place] [phone] Taqueria Gresham MD Discharge Disposition: Discharged to home or Selfcare 11/16/2024 Travel 11/15/2024 10:00 AM CDT Clinical Support [facility] [address] [place] [phone] Taqueria Gresham MD Discharge Disposition: Discharged to home or Selfcare 11/15/2024 9:00 AM CDT Clinical Support [facility] [address] [place] [phone] Malvin Estrada MD Cervical cancer, FIGO stage IB (HCC) (Primary Dx); Cervical cancer, FIGO stage IIB (HCC) Discharge Disposition: Discharged to home or Selfcare 11/15/2024 Travel 11/14/2024 10:15 AM CDT Office Visit [facility] [address] [place] [phone] Taqueria Gresham MD Encounter for radiotherapy (Primary Dx); Patient on combined chemotherapy and radiation; Cervical cancer, FIGO stage IIB (HCC) Discharge Disposition: Discharged to home or Selfcare 11/14/2024 10:00 AM CDT Clinical Support [facility] [address] [place] [phone] Taqueria Gresham MD Discharge Disposition: Discharged to home or Selfcare 11/14/2024 Travel 11/13/2024 Travel 11/12/2024 Travel 11/11/2024 10:00 AM CDT Clinical Support [facility] [address] [place] [phone] Taqueria Gresham MD Discharge Disposition: Discharged to home or Selfcare 11/11/2024 Travel 11/10/2024 10:00 AM CDT Clinical Support [facility] [address] [place] [phone] Taqueria Gresham MD Discharge Disposition: Discharged to home or Selfcare 11/10/2024 Travel 11/09/2024 10:00 AM CDT Clinical Support [facility] [address] [place] [phone] Taqueria Gresham MD Discharge Disposition: Discharged to home or Selfcare 11/09/2024 Travel 11/08/2024 10:15 AM CDT Office Visit [facility] [address] [place] [phone] Taqueria Gresham MD Encounter for radiotherapy (Primary Dx); Patient on combined chemotherapy and radiation; Cervical cancer, FIGO stage IIB (HCC); Vagina bleeding Discharge Disposition: Discharged to home or Selfcare 11/08/2024 10:00 AM CDT Clinical Support [facility] [address] [place] [phone] Taqueria Gresham MD Discharge Disposition: Discharged to home or Selfcare 11/08/2024 9:40 AM CDT Office Visit [facility] [address] [place] [phone] Malvin Estrada MD 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 (HCC) (Primary Dx); Controlled type 2 diabetes mellitus without complication, with long-term current use of insulin; Chemotherapy induced diarrhea; Cervical cancer, FIGO stage IIB (HCC); Neuralgic pain Discharge Disposition: Discharged to home or Selfcare 11/08/2024 9:00 AM CDT Clinical Support [facility] [address] [place] [phone] Malvin Estrada MD Cervical cancer, FIGO stage IIB (HCC) (Primary Dx) Discharge Disposition: Discharged to home or Selfcare 11/08/2024 Travel 11/07/2024 Travel 11/06/2024 Travel 11/04/2024 10:00 AM CDT Clinical Support [facility] [address] [place] [phone] Taqueria Gresham MD Discharge Disposition: Discharged to home or Selfcare 11/04/2024 Travel 11/03/2024 10:00 AM CDT Clinical Support [facility] [address] [place] [phone] Taqueria Gresham MD Discharge Disposition: Discharged to home or Selfcare 11/03/2024 Travel 11/02/2024 10:00 AM CDT Clinical Support [facility] [address] [place] [phone] Taqueria Gresham MD Discharge Disposition: Discharged to home or Selfcare 11/02/2024 Documentation Only [facility] [address] [place] [phone] Taqueria Gresham MD 11/02/2024 Travel 11/01/2024 10:00 AM CDT Clinical Support [facility] [address] [place] [phone] Taqueria Gresham MD Discharge Disposition: Discharged to home or Selfcare 11/01/2024 Travel 10/31/2024 10:30 AM CDT Office Visit [facility] [address] [place] [phone] Taqueria Gresham MD Butler, David Ferrell, MD Cervical cancer, FIGO stage IB (HCC) (Primary Dx); 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 (HCC) Discharge Disposition: Discharged to home or Selfcare 10/31/2024 10:30 AM CDT Clinical Support [facility] [address] [place] [phone] Malvin Estrada MD Cervical cancer, FIGO stage IIB (HCC) (Primary Dx) Discharge Disposition: Discharged to home or Selfcare 10/31/2024 10:00 AM CDT Clinical Support [facility] [address] [place] [phone] Taqueria Gresham MD Butler, David Ferrell, MD Cervical cancer, FIGO stage IB (HCC) (Primary Dx); 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 (HCC) Discharge Disposition: Discharged to home or Selfcare 10/31/2024 8:15 AM CDT Office Visit [facility] [address] [place] [address] Bryanna Smith APRN, CNP Cervical cancer, FIGO stage IIB (HCC) (Primary Dx) Discharge Disposition: Discharged to home or Selfcare 10/31/2024 Travel 10/30/2024 Travel 10/29/2024 Travel 10/28/2024 Non-Scheduled Office Visit [facility] [address] [place] [phone] Taqueria Gresham MD Cervical cancer, FIGO stage IIB (HCC) (Primary Dx) 10/24/[address] [facility] [address] [place] [phone] Malvin Estrada MD 10/21/[address] [facility] [address] [place] [address] Taqueria Gresham MD 10/19/2024 10:15 AM CDT Ancillary Procedure [facility] [address] [place] [phone] Taqueria Gresham MD Encounter for radiotherapy (Primary Dx); Cervical cancer, FIGO stage IB (HCC); Status post MICKI-BSO Discharge Disposition: Discharged to home or Selfcare 10/17/2024 12:21 PM CDT - 10/17/2024 11:59 PM CDT Hospital Encounter [facility] MRI [address] [place] [address] Taqueria Gresham MD Discharge Disposition: Discharged to [...] Description 03/14/2025 9:30 AM CDT [facility] [address] [place] [phone] Barry Martin MD [address] [place] [address] Discharge Disposition: Discharged to home or Selfcare [...] 1.003 - 1.030 12/12/2024 10:11 AM CDT [facility] URINE PH 6.5 5.0 - 9.0 12/12/2024 10:11 AM CDT [facility] WBC ESTERASE 25 /ul(A) Negative 12/12/2024 10:11 AM CDT [facility] NITRITE Negative Negative 12/12/2024 10:11 AM CDT [facility] PROTEIN, RANDOM URINE 500 mg/dL(A) Negative 12/12/2024 10:11 AM CDT [facility] URINE GLUCOSE, QUAL Negative Negative 12/12/2024 10:11 AM CDT [facility] URINE KETONES 15 mg/dL(A) Negative 12/12/2024 10:11 AM CDT [facility] UROBILINOGEN Normal Normal mg/dL 12/12/2024 10:11 AM CDT [facility] URINE BLOOD 150 /uL(A) Negative debbie/ul 12/12/2024 10:11 AM CDT [facility] URINALYSIS COLOR Yellow 12/13/19 10:11 AM CDT [facility] URINALYSIS CLARITY Very Cloudy 12/12/2024 10:11 AM CDT [facility] WBC (Urine) 51-150(A) Negative, 0-5 /hpf 12/12/2024 10:11 AM CDT [facility] URINE RBC'S 51-150(A) Negative, 0-2 /hpf 12/12/2024 10:11 AM CDT [facility] EPITHELIAL CELLS Moderate amount /lpf 12/12/2024 10:11 AM CDT [facility] BACTERIA, URINE Few(A) Negative /hpf 12/12/2024 10:11 AM CDT [facility] Urine URINE SPECIMEN OBTAINED BY CLEAN CATCH PROCEDURE / Unknown Non-Phlebotomy Collection / Unknown 12/12/2024 9:43 AM CDT 12/12/2024 9:43 AM CDT us Bryanna Smith APRN, CNP URINE ORDERABLES Final Result Performing Organization Address City/[facility]/ZIP Co de Phone Number [facility] [address] [place] [address] * CULTURE, URINE (12/12/2024 9:43 AM CDT) CULTURE RESULTS GROUP B STREPTOCOCCUS 12/14/2024 8:58 AM CDT [facility] CULTURE RESULTS Also mixed growth of distal urethral contaminants 12/14/2024 8:58 AM CDT [facility] URINE SPECIMEN OBTAINED BY [...] CNP MICROBIOLOGY - GENERAL ORDERABLES Final Result [facility] [address] [place] [address], [place] * (ABNORMAL) CBC WITH AUTO DIFFERENTIAL (12/12/2024 8:36 AM CDT) Only the most recent of8 resultswithin the time period is included. WBC 1.92(L) 4.00 - 12.00 10(3)/mcL 12/12/2024 9:06 AM CDT [facility] RBC 3.18(L) 3.80 - 5.30 10(6)/mcL 12/12/2024 9:06 AM CDT [facility] HEMOGLOBIN (HGB) 8.8(L) 12.0 - 15.8 g/dL 12/12/2024 9:06 AM CDT [facility] HEMATOCRIT (HCT) 26.3(L) 36.0 - 47.0 % 12/12/2024 9:06 AM CDT [facility] MCV 82.7 82.0 - 96.0 fL 12/12/2024 9:06 AM CDT [facility] MCH 27.7 26.0 - 34.0 pg 12/12/2024 9:06 AM CDT [facility] MCHC 33.5 31.0 - 36.0 g/dL 12/12/2024 9:06 AM [facility] PLATELET COUNT 94(L) 140 - 440 10(3)/mcL 12/12/2024 9:06 AM T [facility] RDW 14.8 11.8 - 15.5 % 12/12/2024 9:06 AM [facility] MPV 8.7(L) 9.7 - 12.4 fL 12/12/2024 9:06 AM [facility] NEUTROPHILS 70.3 47.0 - 73.0 % 12/12/2024 9:06 AM [facility] LYMPHOCYTES 5.7(L) 18.0 - 42.0 % 12/12/2024 9:06 AM CDT [facility] MONOCYTES 14.6(H) 4.0 - 12.0 % 12/12/2024 9:06 AM CDT [facility] EOSINOPHILS 7.8(H) 0.0 - 5.0 % 12/12/2024 9:06 AM CDT [facility] BASOPHILS 1.6(H) 0.0 - 1.0 % 12/12/2024 9:06 AM CDT [facility] IMMATURE GRANULOCYTE 0.0 0.0 - 0.4 % 12/12/2024 9:06 AM CDT [facility] Comment:Immature Granulocyte s includes Metamyelocytes, Myelocytes, and Promyelocytes. ABSOLUTE NEUTROPHILS 1.35(L) 1.60 - 7.70 10(3)/mcL 12/12/2024 9:06 AM CDT [facility] ABSOLUTE LYMPHOCYTES 0.11(L) 1.30 - 3.20 10(3)/mcL 12/12/2024 9:06 AM CDT [facility] ABSOLUTE MONOCYTES 0.28 0.20 - 1.00 10(3)/mcL 12/12/2024 9:06 AM CDT [facility] ABSOLUTE EOSINOPHIL 0.15 0.00 - 0.40 10(3)/[facility] 12/12/2024 9:06 AM CDT [facility] ABSOLUTE BASOPHILS 0.03 0.00 - 0.10 10(3)/[facility] 12/12/2024 9:06 AM CDT [facility] ABSOLUTE IMMATURE GRANULOCYTE 0.00 0.00 - 0.03 10 (3) mcL. 12/12/2024 9:06 AM CDT [facility] NRBC PER 100 WBC 0 12/13/19 25 9:06 AM CDT [facility] RESULTS ARE CONSISTENT WITH PERIPHERAL SMEAR REVIEW Yes 12/12/2024 9:06 AM CDT [facility] Blood Venipuncture / Unknown 12/12/2024 8:36 AM CDT 12/12/2024 8:36 AM CDT us Malvin Estrada MD HEMATOLOGY ORDERABLES Fi nal Result [facility] [address] [place] [address] * (ABNORMAL) MAGNESIUM (MG) (12/12/2024 8:36 AM CDT) Only the most recent of5 resultswithin the time period is included. Pathologist [facility] MAGNESIUM 1.4(L) 1.6 - 2.6 mg/dL 12/12/2024 9:13 AM CDT [facility] Blood Venipuncture / Unknown 12/12/2024 8:36 AM CDT 12/12/2024 8:36 AM CDT us Malvin Estrada MD CHEMISTRY ORDERABLES Fin al Result [facility] [address] [place] [address] * (ABNORMAL) CMP (COMPREHENSIVE METABOLIC PANEL) (12/12/2024 8:36 AM CDT) Only the most recent of8 resultswithin the time period is included. SODIUM 134(L) 136 - 145 mmol/L 12/12/2024 9:13 AM CDT [facility] POTASSIUM 3.9 3.5 - 5.1 mmol/L 12/12/2024 9:13 AM CDT [facility] CHLORIDE 100 98 - 107 mmol/L 12/12/2024 9:13 AM CDT [facility] CO2, VENOUS 24 22 - 30 mmol/L 12/12/2024 9:13 AM CDT [facility] ANION GAP 13.9 <18.0 mmol/L 12/12/2024 9:13 AM CDT [facility] GLUCOSE 104(H) 70 - 99 mg/dL 12/12/2024 9:13 AM CDT [facility] BUN 13 10 - 20 mg/dL 12/12/2024 9:13 AM CDT [facility] CREATININE, BLOOD 1.12(H) 0.60 - 1.00 mg/dL 12/12/2024 9:13 AM CDT [facility] BUN/CREATININE RATIO 12 12 - 20 ratio 12/12/2024 9:13 AM CDT [facility] TOTAL PROTEIN 6.3 6.0 - 8.0 g/dL 12/12/2024 9:13 AM CDT [facility] ALBUMIN 3.7 3.5 - 5.0 g/dL 12/12/2024 9:13 AM CDT [facility] A/G RATIO 1.4 1.0 - 2.2 12/12/2024 9:13 AM CDT [facility] CALCIUM 8.6(L) 8.7 - 10.5 mg/dL 12/12/2024 9:13 AM CDT [facility] T BILI 0.4 0.2 - 1.2 mg/dL 12/12/2024 9:13 AM CDT [facility] SGOT (AST) 17 <43 U/L 12/12/2024 9:13 AM CDT [facility] SGPT (ALT) <6 <56 U/L 12/12/2024 9:13 AM CDT [facility] ALKALINE PHOSPHATASE 36(L) 40 - 150 U/L 12/12/2024 9:13 AM CDT [facility] IS THE PATIENT REQUIRED TO BE FASTING? No 12/12/2024 9:13 AM CDT [facility] GFR, ESTIMATED 55(L) >=60 12/12/2024 9:13 AM CDT [facility] Comment: Creatinine Clearance is the preferred criteria for selecting drug dose adjustments in renally impaired patients. The GFR is provided as additional pertinent clinical information. GFR is reported in mL/min/1.73 sq m. Calculation based on the Chronic Kidney Disease Epidemiology Collaboration (CKD- EPI) equation refit without adjustment for race. GFR, EST. 59(L) >=60 12/12/2 025 9:13 AM CDT [facility] GFR, EST. NONAFRICAN 49(L) >=60 12/12/2024 9:13 AM CDT [facility] Blood Venipuncture / Unknown 12/12/2024 8:36 AM CDT 12/12/2024 8:36 AM CDT Malvin Estrada MD CHEMISTRY ORDERABLES Fin al Result [facility] [address] [place] [address] * RAD ONC ARIA COURSE SUMMARY (12/07/2024 [...] F inal Result [facility] [address] [place] [address] * RAD ONC ARIA SESSION SUMMARY (12/05/2024 [...] ORDERABLES F inal Result Performing Organization Address City/[facility] Co de Phone Number [facility] [address] [place] [address] * RAD ONC ARIA SESSION SUMMARY (12/02/2024 [...] ORDERABLES F inal Result Performing Organization Address City/[facility]/ZIP Co de Phone Number [facility] [address] [place] [address] * RAD ONC ARIA SESSION SUMMARY (12/01/2024 [...] F inal Result [facility] [address] [place] [address] * RAD ONC ARIA SESSION SUMMARY (11/30/2024 [...] ORDERABLES F inal Result Performing Organization Address [facility] de Phone Number [facility] [address] [place] [address] * RAD ONC ARIA SESSION SUMMARY (11/29/2024 [...] ORDERABLES F inal Result Performing Organization Address [facility] Co de Phone Number [facility] [address] [place] [address] * RAD ONC ARIA SESSION SUMMARY (11/28/2024 [...] ORDERABLES F inal Result Performing Organization Address City/State/[facility] Co de Phone Number [facility] [address] [place] [address] * RAD ONC ARIA SESSION SUMMARY (11/25/2024 [...] F inal Result [facility] [address] [place] [address] * C. DIFF BY PCR (11/25/2024 10:11 AM CDT) C DIFF TOXIN DNA BY PCR Negative Negative, Invalid 11/25/2024 11:19 AM CDT [facility] Other STOOL SPECIMEN / Unknown Non-Phlebotomy Collection / Unknown 11/25/2024 10:11 AM CDT 11/25/2024 10:11 AM CDT us Bryanna Smith APRN, BREAKFAST ATTENDANT MICROBIOLOGY - GENERAL ORDERABLES Final Result [facility] [address] [place] [address] * RAD ONC ARIA SESSION SUMMARY (11/24/2024 [...] ORDERABLES F inal Result Performing Organization Address [facility] Co de Phone Number ARIA RO MODEL [address] [place] [address] * RAD ONC ARIA SESSION SUMMARY (11/23/2024 [...] ORDERABLES F inal Result Performing Organization Address [facility] Co de Phone Number ARIA RO MODEL [address] [place] [address] * RAD ONC ARIA SESSION SUMMARY (11/22/2024 [...] ORDERABLES F inal Result Performing Organization Address [facility] Co de Phone Number ARIA RO MODEL [address] [place] [address] * RAD ONC ARIA SESSION SUMMARY (11/21/2024 [...] ORDERABLES F inal Result Performing Organization Address [facility] Co de Phone Number ARIA RO MODEL [address] [place] [address] * RAD ONC ARIA SESSION SUMMARY (11/18/2024 [...] ORDERABLES F inal Result Performing Organization Address City/State/[facility] Co de Phone Number ARIA RO MODEL [address] [place] [address] * RAD ONC ARIA SESSION SUMMARY (11/17/2024 [...] ORDERABLES F inal Result Performing Organization Address [facility] Co de Phone Number ARIA RO MODEL [address] [place] [address] * RAD ONC ARIA SESSION SUMMARY (11/16/2024 [...] ORDERABLES F inal Result Performing Organization Address City/[facility] Co de Phone Number ARIA RO MODEL [address] [place] [address] * RAD ONC ARIA SESSION SUMMARY (11/15/2024 [...] ORDERABLES F inal Result Performing Organization Address City/State/[facility] Co de Phone Number ARIA RO MODEL [address] [place] [address] * RAD ONC ARIA SESSION SUMMARY (11/14/2024 [...] ORDERABLES F inal Result Performing Organization Address [facility] Co de Phone Number ARIA RO MODEL [address] [place] [address] * RAD ONC ARIA SESSION SUMMARY (11/11/2024 [...] ORDERABLES F inal Result Performing Organization Address [facility] Co de Phone Number ARIA RO MODEL [address] [place] [address] * RAD ONC ARIA SESSION SUMMARY (11/10/2024 [...] ORDERABLES F inal Result Performing Organization Address [facility] Co de Phone Number ARIA RO MODEL [address] [place] [address] * RAD ONC ARIA SESSION SUMMARY (11/09/2024 [...] ORDERABLES F inal Result Performing Organization Address [facility] Co de Phone Number ARIA RO MODEL [address] [place] [address] * RAD ONC ARIA SESSION SUMMARY (11/08/2024 [...] ORDERABLES F inal Result Performing Organization Address City/State/[facility] Co de Phone Number ARIA RO MODEL [address] [place] [address] * RAD ONC ARIA SESSION SUMMARY (11/04/2024 [...] ORDERABLES F inal Result Performing Organization Address City/[facility] Co de Phone Number ARIA RO MODEL [address] [place] [address] * RAD ONC ARIA SESSION SUMMARY (11/03/2024 [...] ORDERABLES F inal Result Performing Organization Address City/[facility] Co de Phone Number ARIA RO MODEL [address] [place] [address] * RAD ONC ARIA SESSION SUMMARY (11/02/2024 [...] ORDERABLES F inal Result Performing Organization Address City/State/[facility] Co de Phone Number ARIA RO MODEL [address] [place] [address] * RAD ONC ARIA SESSION SUMMARY (11/01/2024 [...] ORDERABLES F inal Result Performing Organization Address [facility] de Phone Number ARIA RO MODEL [address] [place] [address] * RAD ONC ARIA SESSION SUMMARY (10/31/2024 [...] ORDERABLES F inal Result Performing Organization Address [facility] Co de Phone Number ARIA RO MODEL [address] [place] [address] * MRI PELVIS W/WO CONTRAST (10/17/2024 1:27 [...] Antonio Lopez M.D. NS: NS Report ID: [id number] Reading Location: [id number] Procedure Note José Antonio Lopez MD - [...] Antonio Lopez M.D. NS: NS Report ID: [id number] Reading Location: [id number] IMPRESSION: Heterogeneous cervical mass with invasion of [...] Most Recently Relevant to Health Maintenance Insurance [facility] Care Teams Technology Solutions Architect Relationship Specialty Start Date End Date Diann Crain, FIFTH HAND, BREAKFAST ATTENDANT [address] [place] [address] PCP - General Advanced Practice Nurse 10/10/24 Antonia Rodriguez MD [address] [address] Consulting Physician Gynecologic Oncology 10/11/24 Malvin Estrada MD [address] [place] [address] Consulting Physician Medical Oncology 10/11/24 Taqueria Gresham MD [address] [place] [employer] [place] [place], [place] [id number] Consulting Physician Radiation Oncology 10/11/24 Montana Lakhani MD [address] [place] [address] Consulting Physician Radiation Oncology 10/12/24
[2025-01-17 15:08] VITALS: BP 162/76; PULSE 70; RESP 16; TEMP 36.3; O2SAT 100
--- OUTSIDE RECORDS SUMMARY | 2025-01-17 15:08 | XMS_ITS | Clinical Summary ---
Author Organization [facility] Address [address] [place] [address] Care Team Providers Care Chain Offbearer Name Role Phone Chu Lorenzo MD Primary [...] Sex Assigned at Female 04/29/2018 9:29 PM SALES FORECAST ANALYST Legal Sex Female 5:33 PM SALES FORECAST ANALYST Gender Identity Female 04/29/2018 9:29 PM SALES FORECAST ANALYST Sexual Orientation Straight 04/29/2018 9: 29 PM SALES FORECAST ANALYST Last Filed Vital Signs Vital Sign Reading Time Taken Comments Blood Pressure 144/79 05/04/2018 1:50 PM SALES FORECAST ANALYST Pulse 69 05/04/2018 1:50 PM SALES FORECAST ANALYST Temperature 36.6 C (97.9 F) 05/04/2018 1:50 PM SALES FORECAST ANALYST Respiratory Rate 18 05/04/2018 1:50 PM SALES FORECAST ANALYST Oxygen Saturation 100% 05/04/2018 1:50 PM SALES FORECAST ANALYST Inhaled Oxygen Concentration - - Weight 86.8 kg (191 lb 5.8 oz) 05/04/2018 4:43 A M SALES FORECAST ANALYST Height 172.7 cm (5' 8) 04/29/2018 9:12 PM SALES FORECAST ANALYST Body Mass Index 29.1 04/29/2018 9:12 PM SALES FORECAST ANALYST Plan of Treatment Health Maintenance Due Date [...] patient's age to complete this topic Insurance [facility] [address] Advance Directives * Full Code (Latest Code Status on File) Date Activated Date Inactivated Comments 04/29/2018 11:48 PM 05/04/2018 7:30 PM Care Teams Chain Offbearer Relationship Specialty Start Date End Date Chu Lorenzo MD PCP - General SURGERY 04/24/18
--- OUTSIDE RECORDS SUMMARY | 2025-01-17 15:08 | XMS_ITS ---
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 Past Treatment and Therapy Plans No past plan information found. Radiation Treatments * Course [id number] 12/22/2024 - 01/10/2025 Treatment Period Energy Fraction Dose Fractions Total Dose Plans Planned Cervix 3000 12/22/2024 - 01/10/2025 5 / 3,000 cGy Reference Points Delivered
[2025-01-17 15:17] LABS: Band Neutrophils Percent 0 % (0-6); Basophils Absolute Manual 0.00 K/mm3 (0-0.1); Basophils Percent Manual 0 % (0-1); Eosinophils Absolute Manual 0.03 K/mm3 (0.02-0.50); Eosinophils Percent Manual 1 % (1-6); Lymphocytes Absolute Manual 0.54 K/mm3 (1.1-4.5); Lymphocytes Percent Manual 14 % (18-44); Monocytes Absolute Manual 0.31 K/mm3 (0.1-0.90); Monocytes Percent Manual 8 % (3-9); Neutrophils Absolute Manual 3.00 K/mm3 (1.3-6.7); Neutrophils Percent Manual 77 % (46-73); Total Cells Counted 100
[2025-01-17] MEDS: LOPERAMIDE HCL 2 MG CAPSULE PO (15:23)
[2025-01-17 15:26] LABS: Alanine Aminotransferase 12 U/L (6-35); Albumin Level 4.1 g/dL (3.5-5.1); Alkaline Phosphatase 43 U/L (38-126); Anion Gap 10 mmol/L (4-12); Aspartate Amino Transferase 21 U/L (14-36); Bilirubin,Total 0.9 mg/dL (0.2-1.3); Blood Urea Nitrogen 30 mg/dL (7-17); Calcium 10.1 mg/dL (8.4-10.2); Carbon Dioxide 20 mmol/L (22-30); Chloride 98 mmol/L (98-107); Estimated CRCL calculation 33 ml/min; Estimated Glomerular Filt Rate 34; Glucose 134 mg/dL (65-110); Osmolality Calculated 274 mOsm/kg (285-295); Potassium 4.1 mmol/L (3.4-5.0); Sodium 128 mmol/L (137-145); Total Protein 6.3 g/dL (6.3-8.2)
[2025-01-17 16:22] VITALS: BP 187/76; PULSE 68; RESP 14; O2SAT 100
[2025-01-17 16:26] VITALS: BP 158/84; PULSE 72; RESP 18; TEMP 36.5; O2SAT 100
== END 2025-01-17 16:36 | disposition home or self-care (01) ==
PROVIDERS: Emergency Provider Emergency Medicine; PCP Nurse Practitioner Family
DX: R11.2 Nausea with vomiting, unspecified (principal); R19.7 Diarrhea, unspecified; T45.1X5A Adverse effect of antineoplastic and immunosuppressive drugs, initial encounter; E11.9 Type 2 diabetes mellitus without complications
CPT/HCPCS: 36415; 80053; 85025; 96361; 96374; 99284; A9270; J2405; J7030

== ENCOUNTER 2025-01-20 11:40 | Observation (INO) | payer BC, SELFPAY ==
[2025-01-20] VITALS (27 sets, daily range): BP systolic 134–181; BP diastolic 61–85; PULSE 76–84; RESP 17–20; TEMP 36.4–36.7; O2SAT 95–100; BMI 22.1
--- NOTE | ~2025-01-20 | CT_ITS ---
EXAMINATION: CT abdomen pelvis wo con DATE: 01/20/2025 13:03 INDICATION: Nausea, vomiting and diarrhea TECHNIQUE: Computed tomography (CT) of the abdomen and pelvis was performed without intravenous contr ast. The dose-length product was 254.24 mGy-cm. Automated exposure control and iterative reconstructi on technique were employed. COMPARISON: None. FINDINGS: Lung bases are unremarkable. No significant pleural or pericardial effusion. Small fat-cont aining umbilical hernia. There is left hydronephrosis. Bladder wall is thickened and contains gas non dependent, suspicious for cystitis. No obstructing stone identified. The liver, spleen, pancreas, right kidney are within normal limits. 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 Gallbladder wall appears mildly thickened and contains high density material dependently, possibl y stones or vicarious excretion of contrast. IMPRESSION: 1. Mild left hydroureteronephrosis with urothelial thickening and no diffuse bladder wall thickening and intraluminal gas. Findings suspicious for cystitis with possible ascending urinary tract infectio n. Reviewed, dictated and finalized at location A. IMPRESSION: 1. Mild left hydroureteronephrosis with urothelial thickening and no diffuse bl adder wall thickening and intraluminal gas. Findings suspicious for cystitis wi th possible ascending urinary tract infection.
--- OUTSIDE RECORDS SUMMARY | 2025-01-20 11:48 | XMS_ITS ---
Author Organization [facility] Address [address] [place] [address] Phone Care Team Providers Care Patternmaker Helper Name Role Phone Diann Crain DIRECTOR LEARNING SERVICES, MANAGER TRANSFER Primary Care Provi scot Antonia Rodriguez MD Unavailable [phone] Malvin Estrada MD Unavailable Taqueria Gresham MD Unavailable [phone] Montana Lakhani MD Unavailable [phone] Active Problems Problem Noted Date Diagnosed Date [...]
--- OUTSIDE RECORDS SUMMARY | 2025-01-20 11:49 | XMS_ITS | Patient Health Record ---
Author Organization [facility] Address [address] [place], [place] [address] Care Team Providers Care Solar Thermal Installer Name Role Phone JESUS MANUEL AHMADI Unavailable [phone] Diann Crain Unavailable Unavailable SYDNICHANDNIJESUS MANUEL Unavailable [phone] Allergies Allergen (clinical drug ingredient) Drug/Non Drug [...] 10/06/2024 Encounters Encounter Location Date Provider Diagnosis [address] [id number] 08/04/2024 JESUS MANUEL AHMADI Tinea unguium B35.1 ; Pain in right toe(s) M79.674 ; Pain in left toe(s) M79.675 ; Atherosclerosis of [place] arteries of extremities with intermittent claudication, bilateral legs I70.213 and Type 2 diabetes mellitus with other circulatory complications E11.59 [facility] [address] [place] [id number] 10/06/2024 JESUS MANUEL MCDONOUGH Atherosclerosis of [place] arteries of extremities with intermittent claudication, bilateral [...] and necrotic tissue removed 10/06/2024 Atherosclerosis of [place] arteries of extremities with intermittent claudication, bilateral [...] toe(s) (ICD-10 - M79.675) 08/04/2024 Atherosclerosis of [place] arteries of extremities with intermittent claudication, bilateral [...] Insured Coverage Start Date Coverage End Date [facility] ([facility]) ATTN CLAIMS [address] [place] [address] [id number] [place] Self - patient is the insured Medical (General) History Medical History History ICD Code neuropathy Arthritis Diabetic varicose veins
--- OUTSIDE RECORDS SUMMARY | 2025-01-20 11:49 | XMS_ITS | Clinical Summary ---
Author Organization [facility] Address [address] [place] [address] Care Team Providers Care Plant Clerk Name Role Phone Chu Lorenzo MD Primary [...] Sex Assigned at Female 04/29/2018 9:29 PM EXTENDED INSURANCE CLERK Legal Sex Female 5:33 PM EXTENDED INSURANCE CLERK Gender Identity Female 04/29/2018 9:29 PM EXTENDED INSURANCE CLERK Sexual Orientation Straight 04/29/2018 9: 29 PM EXTENDED INSURANCE CLERK Last Filed Vital Signs Vital Sign Reading Time Taken Comments Blood Pressure 144/79 05/04/2018 1:50 PM EXTENDED INSURANCE CLERK Pulse 69 05/04/2018 1:50 PM EXTENDED INSURANCE CLERK Temperature 36.6 C (97.9 F) 05/04/2018 1:50 PM EXTENDED INSURANCE CLERK Respiratory Rate 18 05/04/2018 1:50 PM EXTENDED INSURANCE CLERK Oxygen Saturation 100% 05/04/2018 1:50 PM EXTENDED INSURANCE CLERK Inhaled Oxygen Concentration - - Weight 86.8 kg (191 lb 5.8 oz) 05/04/2018 4:43 A M EXTENDED INSURANCE CLERK Height 172.7 cm (5' 8) 04/29/2018 9:12 PM EXTENDED INSURANCE CLERK Body Mass Index 29.1 04/29/2018 9:12 PM EXTENDED INSURANCE CLERK Plan of Treatment Health Maintenance Due Date [...] patient's age to complete this topic Insurance [facility] [address] Advance Directives * Full Code (Latest Code Status on File) Date Activated Date Inactivated Comments 04/29/2018 11:48 PM 05/04/2018 7:30 PM Care Teams Plant Clerk Relationship Specialty Start Date End Date Chu Lorenzo MD PCP - General SURGERY 04/24/18
--- OUTSIDE RECORDS SUMMARY | 2025-01-20 11:49 | XMS_ITS | Encounter Summary ---
Author Organization [facility] Address [address] [facility] [place] [address] Phone Care Team Providers Care Boxing Inspector Name Role Phone Diann Crain APRN, RISK ASSESSOR Primary Care Provi scot Antonia Rodriguez MD Unavailable [phone] Malvin Estrada MD Unavailable Taqueria Gresham MD Unavailable [phone] Montana Lakhani MD Unavailable Encounter Details Date Type Department Care Team (Late st Contact Info) Description 01/20/2025 Telephone [facility] Oncology Services [address] [place] [address] Malvin Estrada MD [address] [place] [address] Social History Tobacco Use Types Packs/Day Years [...] as of this encounter Miscellaneous Notes * Telephone Encounter - Ijeoma Levine, RN - 01/20/2025 11:02 AM CDT Patient called speaking to accounts payable or receivable clerk stating she would not be in for her appointment today. See notes from yesterday. This RN called Mirtha to inquire how she if feeling. Mirtha sounded weak, fatigued. Mirtha acknowledges I can barely lift my head off the pillow and not moving because I feelso awful. Patient advised to go to the her local emergency room for evaluation; to call an ambulance if she doesn't feel family can take her. Mirtha verbalized understanding and will go to the emergency room for evaluation. documented in this encounter Plan of Treatment Upcoming Encounters Date Type Department Care Team (Late st Contact Info) Description 03/14/2025 9:30 AM CDT Office Visit [facility] Oncology Services [address] [place] [address] Barry Martin MD [address] [place] [address] Discharge Disposition: Discharged to home or Selfcare documented as of this encounter Visit Diagnoses Not on filedocumented in this encounter Care Teams Boxing Inspector Relationship Specialty Start Date End Date Diann Crain, ROLLING MACHINE TENDER, RISK ASSESSOR [address] [place] [address] PCP - General Advanced Practice Nurse 10/10/24 Antonia Rodriguez MD [address] [address] Consulting Physician Gynecologic Oncology 10/11/24 Malvin Estrada MD [address] [place] [address] Consulting Physician Medical Oncology 10/11/24 Taqueria Gresham MD [address] [place] [address] Consulting Physician Radiation Oncology 10/11/24 Montana Lakhani MD [address] [place] [address] Consulting Physician Radiation Oncology 10/12/24 documented as of this encounter
--- OUTSIDE RECORDS SUMMARY | 2025-01-20 11:49 | XMS_ITS | Clinical Summary ---
Author Organization [facility] Address [address] [place] [address] Phone Care Team Providers Care Quantitative Research Analyst Name Role Phone DavidbeatrisDiann PHARMACEUTICAL WORKER, LOAN INTERVIEWER Primary Care Provi scot Antonia Rodriguez MD Unavailable [phone] Malvin Estrada MD Unavailable [phone] Taqueria Gresham MD Unavailable [phone] Montana Lakhani MD Unavailable Allergies Active Allergy Reactions Criticality Noted Date Comments Amoxicillin Rash Low 04/29/2018 Brewers Yeast Anaphylaxis High 04/29/2018 Erythromycin Rash,Swelling 10/10/2024 Sulfa Antibiotics Rash Low 04/29/2018 Medications metFORMIN (GLUCOPHAGE-X R) 500 MG TABLET SR 24 HR Take [...] 25 Active ondansetron (ZOFRAN-ODT) 8 MG TABLET DISPERSIBLEIn dications:Cer vical cancer, FIGO stage IIB (HCC) Take 1 Tablet by mouth every 8 hours as needed for Nausea - 1st line. Take one tablet every 8 hours as needed for nausea 30 Tablet 2 11/01/19 25 Active OLANZapine (ZyPREXA) 5 MG TabletIndicat ions:Cervical cancer, FIGO stage IIB (HCC) Take 1 Tablet by mouth See Admin Instructions. Take one tablet nightly for 4 nights, starting the night prior to chemotherapy. Repeat every 7 days for 6 cycles 24 Tablet 11/01/19 25 Active gabapentin (NEURONTIN) 300 MG Capsule TAKE 1 CAPSULE BY MOUTH EVERY DAY AT NIGHT 30 Capsule 1 01/03/20 25 Active prochlorperaz ine (COMPAZINE) 10 MG TabletIndicat ions:Cervical cancer, FIGO stage IIB (HCC) Take 1 Tablet by mouth every 6 hours as needed for Nausea - 2nd line. Take one tablet every 6 hours as needed for nausea. 30 Tablet 2 01/20/20 25 Active prochlorperaz ine (COMPAZINE) 10 MG TabletIndicat ions:Cervical cancer, FIGO stage IIB (HCC) Take 1 Tablet by mouth every 6 hours as needed for Nausea - 2nd line. Take one tablet every 6 hours as needed for nausea. 30 Tablet 2 11/01/19 25 025 Discontinued(R eorder) gabapentin (NEURONTIN) 300 MG Capsule Take 1 Capsule by mouth nightly. 30 Capsule 1 11/09/19 25 025 Discontinued promethazine (PHENERGAN) 12.5 MG TabletIndicat ions:Nausea and Vomiting Take 1 Tablet by mouth [...] Encounters Date Type Department Care Team Description 01/20[facility]25 [facility] [address] [place] [address] Malvin Estrada MD 01/19/2025 [facility] [address] [place] [address] Malvin Estrada MD 12/31/2024 [facility] [address] [place] [address] Malvin Estrada MD Medication Refill 12/23/2024 [facility]phone [facility] [address] [place] [address] Bryanna Smith APRN, LOAN INTERVIEWER 12/19/2024 [facility]phone [facility] [address] [place] [address] Malvin Estrada MD 12/19/2024 [facility]phone [facility] [address] [place] [address] Malvin Estrada MD 12/12/2024 8:30 AM CDT Clinical [facility] [address] [place] [address] Bryanna Smith, PHARMACEUTICAL WORKER, LOAN INTERVIEWER Cervical cancer, FIGO stage IB (HCC) (Primary Dx); Cervical cancer, FIGO stage IIB (HCC); Dysuria Discharge Disposition: Discharged to home or Selfcare 12/12/2024 8:15 AM CDT [facility] [address] [place] [address] Bryanna Smith APRN, CNP Cervical cancer, FIGO stage IB (HCC) (Primary Dx); History of therapeutic radiation; History of cancer chemotherapy; Dysuria; Chemotherapy induced diarrhea; Chemotherapy-induce d nausea Discharge Disposition: Discharged to home or Selfcare 12/12/2024 Travel 12/10/2024 Travel 12/07/2024 Documentation Only [facility] [address] [place] [phone] Yanet Black, BARI 12/05/2024 9:00 AM CDT Clinical Support [facility] [address] [place] [phone] Malvin Estrada MD Cervical cancer, FIGO stage IB (HCC) (Primary Dx); Cervical cancer, FIGO stage IIB (HCC) Discharge Disposition: Discharged to home or Selfcare 12/05/2024 9:00 AM CDT Office Visit [facility] [address] [place] [phone] Taqueria Gresham MD Butler, David Ferrell, MD Cervical cancer, FIGO stage IIB (HCC) (Primary Dx); Encounter for radiotherapy; Patient on combined chemotherapy and radiation Discharge Disposition: Discharged to home or Selfcare 12/05/2024 8:45 AM CDT Clinical Support [facility] [address] [place] [phone] Taqueria Gresham MD History of therapeutic radiation (Primary Dx); History of cancer chemotherapy; Cervical cancer, FIGO stage IB (HCC) Discharge Disposition: Discharged to home or Selfcare 12/05/2024 Travel 12/03/2024 Travel 12/02/2024 10:00 AM CDT Clinical Support [facility] [address] [place] [phone] Taqueria Gresham MD Discharge Disposition: Discharged to home or Selfcare 12/02/2024 Travel 12/01/2024 10:00 AM CDT Clinical Support [facility] [address] [place] [phone] Taqueria Gresham MD Discharge Disposition: Discharged to home or Selfcare 12/01/2024 Travel 11/30/2024 10:00 AM CDT Clinical Support [facility] [address] [place] [phone] Taqueria Gresham MD Discharge Disposition: Discharged to home or Selfcare 11/30/2024 Travel 11/29/2024 10:00 AM CDT Clinical Support [facility] [address] [place] [phone] Taqueria Gresham MD Discharge Disposition: Discharged to home or Selfcare 11/29/2024 Travel 11/28/2024 10:15 AM CDT Office Visit [facility] [address] [place] [phone] Taqueria Gresham MD Encounter for radiotherapy (Primary Dx); Patient on combined chemotherapy and radiation; Cervical cancer, FIGO stage IIB (HCC); Loose stools Discharge Disposition: Discharged to home or Selfcare 11/28/2024 10:00 AM CDT Clinical Support [facility] [address] [place] [phone] Taqueria Gresham MD Discharge Disposition: Discharged to home or Selfcare 11/28/2024 9:00 AM CDT Clinical Support [facility] [address] [place] [phone] Malvin Estrada MD Cervical cancer, FIGO stage IIB (HCC) (Primary Dx); Cervical cancer, FIGO stage IB (HCC) Discharge Disposition: Discharged to home or Selfcare 11/28/2024 Travel 11/27/2024 Travel 11/26/2024 Travel 11/25/2024 10:00 AM CDT Clinical Support [facility] [address] [place] [phone] Taqueria Gresham MD Discharge Disposition: Discharged to home or Selfcare 11/25/2024 Travel 11/24/2024 11:00 AM CDT Clinical Support [facility] [address] [place] [phone] Taqueria Gresham MD Cervical cancer, FIGO stage IIB (HCC) (Primary Dx); Diarrhea, unspecified type Discharge Disposition: Discharged to home or Selfcare 11/24/2024 10:00 AM CDT Documentation Only [facility] [address] [place] [phone] Taqueria Gresham MD Cervical cancer, FIGO stage IIB (HCC) Discharge Disposition: Discharged to home or Selfcare 11/24/2024 Travel 11/23/2024 10:00 AM CDT Clinical Support [facility] [address] [place] [phone] Malvin Estrada MD Diarrhea, unspecified type (Primary Dx) Discharge Disposition: Discharged to home or Selfcare 11/23/2024 10:00 AM CDT Clinical Support [facility] [address] [place] [phone] Taqueria Gresham MD Discharge Disposition: Discharged to home or Selfcare 11/23/2024 9:15 AM CDT Office Visit [facility] [address] [place] [phone] Malvin Estrada MD Baxley, Brandy M, APRN, LOAN INTERVIEWER Cervical cancer, FIGO stage IIB (HCC) (Primary Dx); Neuralgic pain; Diarrhea, unspecified type Discharge Disposition: Discharged to home or Selfcare 11/23/2024 Travel 11/22/2024 10:00 AM CDT Clinical Support [facility] [address] [place] [phone] Taqueria Gresham MD Discharge Disposition: Discharged to home or Selfcare 11/22/2024 Travel 11/21/2024 10:15 AM CDT Office Visit [facility] [address] [place] [phone] Taqueria Gresham MD Encounter for radiotherapy (Primary Dx); Patient on combined chemotherapy and radiation; Cervical cancer, FIGO stage IIB (HCC); Loose stools Discharge Disposition: Discharged to home or Selfcare 11/21/2024 10:00 AM CDT Clinical Support [facility] [address] [place] [phone] Taqueria Gresham MD Discharge Disposition: Discharged to home or Selfcare 11/21/2024 9:00 AM CDT Clinical Support [facility] [address] [place] [phone] Malvin Estrada MD Cervical cancer, FIGO stage IIB (HCC) (Primary Dx) Discharge Disposition: Discharged to home or Selfcare 11/21/2024 Travel 11/19/2024 Travel 11/18/2024 10:00 AM CDT Clinical Support [facility] [address] [place] [phone] Taqueria Gresham MD Discharge Disposition: Discharged to home or Selfcare 11/18/2024 Travel 11/17/2024 10:00 AM CDT Clinical Support [facility] [address] [place] [phone] Taqueria Gresham MD Discharge Disposition: Discharged to home or Selfcare 11/17/2024 Travel 11/16/2024 10:00 AM CDT Clinical Support [facility] [address] [place] [phone] Taqueria Gresham MD Discharge Disposition: Discharged to home or Selfcare 11/16/2024 Travel 11/15/2024 10:00 AM CDT Clinical Support [facility] [address] [place] [phone] Taqueria Gresham MD Discharge Disposition: Discharged to home or Selfcare 11/15/2024 9:00 AM CDT Clinical Support [facility] [address] [place] [phone] Malvin Estrada MD Cervical cancer, FIGO stage IB (HCC) (Primary Dx); Cervical cancer, FIGO stage IIB (HCC) Discharge Disposition: Discharged to home or Selfcare 11/15/2024 Travel 11/14/2024 10:15 AM CDT Office Visit [facility] [address] [place] [phone] Taqueria Gresham MD Encounter for radiotherapy (Primary Dx); Patient on combined chemotherapy and radiation; Cervical cancer, FIGO stage IIB (HCC) Discharge Disposition: Discharged to home or Selfcare 11/14/2024 10:00 AM CDT Clinical Support [facility] [address] [place] [phone] Taqueria Gresham MD Discharge Disposition: Discharged to home or Selfcare 11/14/2024 Travel 11/13/2024 Travel 11/12/2024 Travel 11/11/2024 10:00 AM CDT Clinical Support [facility] [address] [place] [phone] Taqueria Gresham MD Discharge Disposition: Discharged to home or Selfcare 11/11/2024 Travel 11/10/2024 10:00 AM CDT Clinical Support [facility] [address] [place] [phone] Taqueria Gresham MD Discharge Disposition: Discharged to home or Selfcare 11/10/2024 Travel 11/09/2024 10:00 AM CDT Clinical Support [facility] [address] [place] [phone] Taqueria Gresham MD Discharge Disposition: Discharged to home or Selfcare 11/09/2024 Travel 11/08/2024 10:15 AM CDT Office Visit [facility] [address] [place] [phone] Taqueria Gresham MD Encounter for radiotherapy (Primary Dx); Patient on combined chemotherapy and radiation; Cervical cancer, FIGO stage IIB (HCC); Vagina bleeding Discharge Disposition: Discharged to home or Selfcare 11/08/2024 10:00 AM CDT Clinical Support [facility] [address] [place] [phone] Taqueria Gresham MD Discharge Disposition: Discharged to home or Selfcare 11/08/2024 9:40 AM CDT Office Visit [facility] [address] [place] [phone] Malvin Estrada MD 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 (HCC) (Primary Dx); Controlled type 2 diabetes mellitus without complication, with long-term current use of insulin; Chemotherapy induced diarrhea; Cervical cancer, FIGO stage IIB (HCC); Neuralgic pain Discharge Disposition: Discharged to home or Selfcare 11/08/2024 9:00 AM CDT Clinical Support [facility] [address] [place] [phone] Malvin Estrada MD Cervical cancer, FIGO stage IIB (HCC) (Primary Dx) Discharge Disposition: Discharged to home or Selfcare 11/08/2024 Travel 11/07/2024 Travel 11/06/2024 Travel 11/04/2024 10:00 AM CDT Clinical Support [facility] [address] [place] [phone] Taqueria Gresham MD Discharge Disposition: Discharged to home or Selfcare 11/04/2024 Travel 11/03/2024 10:00 AM CDT Clinical Support [facility] [address] [place] [phone] Taqueria Gresham MD Discharge Disposition: Discharged to home or Selfcare 11/03/2024 Travel 11/02/2024 10:00 AM CDT Clinical Support [facility] [address] [place] [phone] Taqueria Gresham MD Discharge Disposition: Discharged to home or Selfcare 11/02/2024 Documentation Only [facility] [address] [place] [phone] Taqueria Gresham MD 11/02/2024 Travel 11/01/2024 10:00 AM CDT Clinical Support [facility] [address] [place] [phone] Taqueria Gresham MD Discharge Disposition: Discharged to home or Selfcare 11/01/2024 Travel 10/31/2024 10:30 AM CDT Office Visit [facility] [address] [place] [phone] Taqueria Gresham MD Butler, David Ferrell, MD Cervical cancer, FIGO stage IB (HCC) (Primary Dx); 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 (HCC) Discharge Disposition: Discharged to home or Selfcare 10/31/2024 10:30 AM CDT [facility] [address] [place] [phone] Malvin Estrada MD Cervical cancer, FIGO stage IIB (HCC) (Primary Dx) Discharge Disposition: Discharged to home or Selfcare 10/31/2024 10:00 AM CDT Clinical Support [facility] [address] [place] [phone] Taqueria Gresham MD Butler, Barry Andres MD Cervical cancer, FIGO stage IB (HCC) (Primary Dx); 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 (HCC) Discharge Disposition: Discharged to home or Selfcare 10/31/2024 8:15 AM CDT Office Visit [facility] [address] [place] [phone] Bryanna Smith APRN, CNP Cervical cancer, FIGO stage IIB (HCC) (Primary Dx) Discharge Disposition: Discharged to home or Selfcare 10/31/2024 Travel 10/30/2024 Travel 10/29/2024 Travel 10/28/2024 Non-Scheduled Office Visit [facility] [address] [place] [phone] Taqueria Gresham MD Cervical cancer, FIGO stage IIB (HCC) (Primary Dx) 10/24/2024 Telephone [facility] [address] [place] [phone] Malvin Estrada MD 10/21/2024 Documentation Only [facility] [address] [place] [phone] Taqueria Gresham MD from Last 3 Months Family History Medical [...] Description 03/14/2025 9:30 AM CDT [facility] [address] [place] [address] Barry Martin MD [address] [place] [phone] Discharge Disposition: Discharged to home or Selfcare [...] CDT Cervical cancer, FIGO stage IIB (HCC) HM COLONOSCOPY 10/12/2024 12:00 AM CDT from Last 3 Months or Most Recently Relevant to Health Maintenance Results * (ABNORMAL) URINALYSIS REFLEX IF INDICATED BY ABNORMAL RESULTS (12/12/2024 9:43 AM CDT) SPECIFIC GRAVITY 1.010 1.003 - 1.030 12/12/2024 10:[address] [facility] URINE PH 6.5 5.0 - 9.0 12/12/2024 10:11 AM [facility] WBC ESTERASE 25 /ul(A) Negative 12/12/2024 10:[address] [facility] NITRITE Negative Negative 12/12/2024 10:[address] [facility] PROTEIN, RANDOM URINE 500 mg/dL(A) Negative 12/12/2024 10:[address] [facility] URINE GLUCOSE, QUAL Negative Negative 12/12/2024 10:11 AM [facility] URINE KETONES 15 mg/dL(A) Negative 12/12/2024 10:11 AM [facility] UROBILINOGEN Normal Normal mg/dL 12/12/2024 10:[address] [facility] URINE BLOOD 150 /uL(A) Negative debbie/ul 12/12/2024 10:11 AM [facility] URINALYSIS COLOR Yellow 12/13/19 10:11 AM [facility] URINALYSIS CLARITY Very Cloudy 12/12/2024 10:11 AM [facility] WBC (Urine) 51-150(A) Negative, 0-5 /hpf 12/12/2024 10:[address] [facility] URINE RBC'S 51-150(A) Negative, 0-2 /hpf 12/12/2024 10:11 AM [facility] EPITHELIAL CELLS Moderate amount /lpf 12/12/2024 10:11 AM [facility] BACTERIA, URINE Few(A) Negative /hpf 12/12/2024 10:11 AM [facility] Urine URINE SPECIMEN OBTAINED BY CLEAN CATCH PROCEDURE / Unknown Non-Phlebotomy Collection / Unknown 12/12/2024 9:43 AM CDT 12/12/2024 9:43 AM CDT us Bryanna Smith APRN, CNP URINE ORDERABLES Final Result Performing Organization Address City/[facility] Co de Phone Number [facility] [address] [place] [address] * CULTURE, URINE (12/12/2024 9:43 AM CDT) CULTURE RESULTS GROUP B STREPTOCOCCUS 12/14/2024 8:58 AM CDT [facility] CULTURE RESULTS Also mixed growth of distal urethral contaminants 12/14/2024 8:58 AM CDT [facility] Urine URINE SPECIMEN OBTAINED BY CLEAN [...] CNP MICROBIOLOGY - GENERAL ORDERABLES Final Result Performing Organization Address [facility] de Phone Number [facility] [address] [place] [address], * (ABNORMAL) CBC WITH AUTO DIFFERENTIAL (12/12/2024 8:36 AM CDT) Only the most recent of8 resultswithin the time period is included. WBC 1.92(L) 4.00 - 12.00 10(3)/mcL 12/12/2024 9:06 AM CDT [facility] RBC 3.18(L) 3.80 - 5.30 10(6)/mcL 12/12/2024 9:06 AM [facility] HEMOGLOBIN (HGB) 8.8(L) 12.0 - 15.8 g/dL 12/12/2024 9:06 AM [facility] HEMATOCRIT (HCT) 26.3(L) 36.0 - 47.0 % 12/12/2024 9:06 AM [facility] MCV 82.7 82.0 - 96.0 fL 12/12/2024 9:[address] [facility] MCH 27.7 26.0 - 34.0 pg 12/12/2024 9:06 AM [facility] MCHC 33.5 31.0 - 36.0 g/dL 12/12/2024 9:06 AM [facility] PLATELET COUNT 94(L) 140 - 440 10(3)/mcL 12/12/2024 9:06 AM [facility] RDW 14.8 11.8 - 15.5 % 12/12/2024 9:06 AM [facility] MPV 8.7(L) 9.7 - 12.4 fL 12/12/2024 9:06 AM [facility] NEUTROPHILS 70.3 47.0 - 73.0 % 12/12/2024 9:06 AM [facility] LYMPHOCYTES 5.7(L) 18.0 - 42.0 % 12/12/2024 9:06 AM [facility] MONOCYTES 14.6(H) 4.0 - 12.0 % 12/12/2024 9:06 AM [facility] EOSINOPHILS 7.8(H) 0.0 - 5.0 % 12/12/2024 9:[address] [facility] BASOPHILS 1.6(H) 0.0 - 1.0 % 12/12/2024 9:06 AM [facility] IMMATURE GRANULOCYTE 0.0 0.0 - 0.4 % 12/12/2024 9:06 AM [facility] Comment:Immature Granulocyte s includes Metamyelocytes, Myelocytes, and Promyelocytes. ABSOLUTE NEUTROPHILS 1.35(L) 1.60 - 7.70 10(3)/mcL 12/12/2024 9:[address] [facility] ABSOLUTE LYMPHOCYTES 0.11(L) 1.30 - 3.20 10(3)/[facility] 12/12/2024 9:[address] [facility] ABSOLUTE MONOCYTES 0.28 0.20 - 1.00 10(3)/[facility] 12/12/2024 9:[address] [facility] ABSOLUTE EOSINOPHIL 0.15 0.00 - 0.40 10(3)/[facility] 12/12/2024 9:[address] [facility] ABSOLUTE BASOPHILS 0.03 0.00 - 0.10 10(3)/[facility] 12/12/2024 9:[address] [facility] ABSOLUTE IMMATURE GRANULOCYTE 0.00 0.00 - 0.03 10 (3) [facility]. 12/12/2024 9:[address] [facility] NRBC PER 100 WBC 0 12/13/19 25 9:[address] [facility] RESULTS ARE CONSISTENT WITH PERIPHERAL SMEAR REVIEW Yes 12/12/2024 9:[address] [facility] Blood Venipuncture / Unknown 12/12/2024 8:36 AM CDT 12/12/2024 8:36 AM CDT Malvin Estrada MD HEMATOLOGY ORDERABLES Fi nal Result [facility] [address] [place] [address] * (ABNORMAL) MAGNESIUM (MG) (12/12/2024 8:36 AM CDT) Only the most recent of5 resultswithin the time period is included. MAGNESIUM 1.4(L) 1.6 - 2.6 mg/dL 12/12/2024 9:[address] [facility] Blood Venipuncture / Unknown 12/12/2024 8:36 AM CDT 12/12/2024 8:36 AM CDT Malvin Estrada MD CHEMISTRY ORDERABLES Fin al Result [facility] [address] [place] [address] * (ABNORMAL) CMP (COMPREHENSIVE METABOLIC PANEL) (12/12/2024 8:36 AM CDT) Only the most recent of8 resultswithin the time period is included. SODIUM 134(L) 136 - 145 mmol/L 12/12/2024 9:[address] [facility] POTASSIUM 3.9 3.5 - 5.1 mmol/L 12/12/2024 9:[address] [facility] CHLORIDE 100 98 - 107 mmol/L 12/12/2024 9:[address] [facility] CO2, VENOUS 24 22 - 30 mmol/L 12/12/2024 9:[address] [facility] ANION GAP 13.9 <18.0 mmol/L 12/12/2024 9:[address] [facility] GLUCOSE 104(H) 70 - 99 mg/dL 12/12/2024 9:[address] [facility] BUN 13 10 - 20 mg/dL 12/12/2024 9:[address] [facility] CREATININE, BLOOD 1.12(H) 0.60 - 1.00 mg/dL 12/12/2024 9:[address] [facility] BUN/CREATININE RATIO 12 12 - 20 ratio 12/12/2024 9:[address] [facility] TOTAL PROTEIN 6.3 6.0 - 8.0 g/dL 12/12/2024 9:[address] [facility] ALBUMIN 3.7 3.5 - 5.0 g/dL 12/12/2024 9:[address] [facility] A/G RATIO 1.4 1.0 - 2.2 12/12/2024 9:[address] [facility] CALCIUM 8.6(L) 8.7 - 10.5 mg/dL 12/12/2024 9:[address] [facility] T BILI 0.4 0.2 - 1.2 mg/dL 12/12/2024 9:[address] [facility] SGOT (AST) 17 <43 U/L 12/12/2024 9:[address] [facility] SGPT (ALT) <6 <56 U/L 12/12/2024 9:[address] [facility] ALKALINE PHOSPHATASE 36(L) 40 - 150 U/L 12/12/2024 9:[address] [facility] IS THE PATIENT REQUIRED TO BE FASTING? No 12/12/2024 9:[address] [facility] GFR, ESTIMATED 55(L) >=60 12/12/2024 9:[address] [facility] Comment: Creatinine Clearance is the preferred criteria for selecting drug dose adjustments in renally impaired patients. The GFR is provided as additional pertinent clinical information. GFR is reported in mL/min/1.73 sq m. Calculation based on the Chronic Kidney Disease Epidemiology Collaboration (CKD- EPI) equation refit without adjustment for race. GFR, EST. 59(L) >=60 12/12/2 025 9:[address] [facility] GFR, EST. NONAFRICAN 49(L) >=60 12/12/2024 9:[address] [facility] Blood Venipuncture / Unknown 12/12/2024 8:36 AM CDT 12/12/2024 8:36 AM CDT us Malvin Estrada MD CHEMISTRY ORDERABLES Fin al Result [facility] [address] [place] [address] * RAD ONC ARIA COURSE SUMMARY (12/07/2024 [...] ORDERABLES F inal Result Performing Organization Address City/State/[facility] Co de Phone Number ARIA RO MODEL [address] [place] [address] * RAD ONC ARIA SESSION SUMMARY (12/05/2024 [...] ORDERABLES F inal Result Performing Organization Address City/[facility] Co de Phone Number ARIA RO MODEL [address] [place] [address] * RAD ONC ARIA SESSION SUMMARY (12/02/2024 [...] ORDERABLES F inal Result Performing Organization Address City/[facility]/ZIP Co de Phone Number ARIA RO MODEL [address] [place] [address] * RAD ONC ARIA SESSION SUMMARY (12/01/2024 [...] ORDERABLES F inal Result Performing Organization Address City/State/[facility] Co de Phone Number ARIA RO MODEL [address] [place] [address] * RAD ONC ARIA SESSION SUMMARY (11/30/2024 [...] ORDERABLES F inal Result Performing Organization Address [facility] de Phone Number ARIA RO MODEL [address] [place] [address] * RAD ONC ARIA SESSION SUMMARY (11/29/2024 [...] ORDERABLES F inal Result Performing Organization Address [facility] Co de Phone Number ARIA RO MODEL [address] [place] [address] * RAD ONC ARIA SESSION SUMMARY (11/28/2024 [...] ORDERABLES F inal Result Performing Organization Address [facility] Co de Phone Number ARIA RO MODEL [address] [place] [address] * RAD ONC ARIA SESSION SUMMARY (11/25/2024 [...] ORDERABLES F inal Result Performing Organization Address City/[facility]/ZIP Co de Phone Number ARIA RO MODEL [address] [place] [address] * C. DIFF BY PCR (11/25/2024 10:11 AM CDT) C DIFF TOXIN DNA BY PCR Negative Negative, Invalid 11/25/2024 11:19 AM CDT [facility] Other STOOL SPECIMEN / Unknown Non-Phlebotomy Collection / Unknown 11/25/2024 10:11 AM CDT 11/25/2024 10:11 AM CDT us Bryanna Smith PHARMACEUTICAL WORKER, LOAN INTERVIEWER MICROBIOLOGY - GENERAL ORDERABLES Final Result [facility] [address] [place] [address] * RAD ONC ARIA SESSION SUMMARY (11/24/2024 [...] F inal Result ARIA RO MODEL [address] [place] [address] * RAD ONC ARIA SESSION SUMMARY (11/23/2024 [...] ORDERABLES F inal Result Performing Organization Address City/State/[facility] Co de Phone Number ARIA RO MODEL [address] [place] [address] * RAD ONC ARIA SESSION SUMMARY (11/22/2024 [...] ORDERABLES F inal Result Performing Organization Address City/[facility] Co de Phone Number ARIA RO MODEL [address] [place] [address] * RAD ONC ARIA SESSION SUMMARY (11/21/2024 [...] ORDERABLES F inal Result Performing Organization Address [facility] Co de Phone Number ARIA RO MODEL [address] [place] [address] * RAD ONC ARIA SESSION SUMMARY (11/18/2024 [...] ORDERABLES F inal Result Performing Organization Address City/State/[facility] Co de Phone Number ARIA RO MODEL [address] [place] [address] * RAD ONC ARIA SESSION SUMMARY (11/17/2024 [...] ORDERABLES F inal Result Performing Organization Address [facility] de Phone Number ARIA RO MODEL [address] [place] [address] * RAD ONC ARIA SESSION SUMMARY (11/16/2024 [...] ORDERABLES F inal Result Performing Organization Address [facility] Co de Phone Number ARIA RO MODEL [address] [place] [address] * RAD ONC ARIA SESSION SUMMARY (11/15/2024 [...] Reference Point Pelvis_PRP ARIA RO MODEL 11/15/2024 9:1 5 AM CDT us Unknown Provider RADIATION ONCOLOGY ORDERABLES F inal Result Performing Organization Address [facility] Co de Phone Number ARIA RO MODEL [address] [place] [address] * RAD ONC ARIA SESSION SUMMARY (11/14/2024 [...] F inal Result ARIA RO MODEL [address] [place] [address] * RAD ONC ARIA SESSION SUMMARY (11/11/2024 [...] ORDERABLES F inal Result Performing Organization Address [facility] de Phone Number ARIA RO MODEL [address] [place] [address] * RAD ONC ARIA SESSION SUMMARY (11/10/2024 [...] ORDERABLES F inal Result Performing Organization Address City/[facility] Co de Phone Number ARIA RO MODEL [address] [place] [address] * RAD ONC ARIA SESSION SUMMARY (11/09/2024 [...] ORDERABLES F inal Result Performing Organization Address City/[facility]/ZIP Co de Phone Number ARIA RO MODEL [address] [place] [address] * RAD ONC ARIA SESSION SUMMARY (11/08/2024 [...] F inal Result ARIA RO MODEL [address] [place] [address] * RAD ONC ARIA SESSION SUMMARY (11/04/2024 [...] ORDERABLES F inal Result Performing Organization Address [facility] Co de Phone Number ARIA RO MODEL [address] [place] [address] * RAD ONC ARIA SESSION SUMMARY (11/03/2024 [...] ORDERABLES F inal Result Performing Organization Address [facility] Co de Phone Number ARIA RO MODEL [address] [place] [address] * RAD ONC ARIA SESSION SUMMARY (11/02/2024 [...] ORDERABLES F inal Result Performing Organization Address City/State/[facility] Co de Phone Number ARIA RO MODEL [address] [place] [address] * RAD ONC ARIA SESSION SUMMARY (11/01/2024 [...] ORDERABLES F inal Result Performing Organization Address [facility] Co de Phone Number ARIA RO MODEL [address] [place] [address] * RAD ONC ARIA SESSION SUMMARY (10/31/2024 [...] ORDERABLES F inal Result Performing Organization Address [facility] Co de Phone Number ARIA RO MODEL [address] [place] [address] * COLONOSCOPY (10/12/2024 12:00 AM CDT) 10/12/2024 us Provider Scan PROCEDURE/MINOR SURGICAL ORDERAB LES Final Result Performing Organization Address City/[facility] Co de Phone Number SCAN from Last 3 Months or Most Recently Relevant to Health Maintenance Insurance [facility] Care Teams Quantitative Research Analyst Relationship Specialty Start Date End Date Diann Crain, PHARMACEUTICAL WORKER, LOAN INTERVIEWER [address] [place] [address] PCP - General Advanced Practice Nurse 10/10/24 Antonia Rodriguez MD [address] [address] Consulting Physician Gynecologic Oncology 10/11/24 Malvin Estrada MD [address] [place] [address] Consulting Physician Medical Oncology 10/11/24 Taqueria Gresham MD [address] [place] [address] Consulting Physician Radiation Oncology 10/11/24 Montana Lakhani MD [address] [place] [address] Consulting Physician Radiation Oncology 10/12/24
--- OUTSIDE RECORDS SUMMARY | 2025-01-20 11:49 | XMS_ITS ---
Author Organization [facility] Address [address] [place], [place] [address] Care Team Providers Care Sprinkling System Installer Name Role Phone DAIANA JESUS MANUEL Unavailable [phone] Diann Crain Unavailable Unavailable Allergies Allergen (clinical [...] Female Encounters Encounter Location Date Provider Diagnosis [address] [id number] 08/04/2024 JESUS MANUEL AHMADI Tinea unguium B35.1 ; Pain in right toe(s) M79.674 ; Pain in left toe(s) M79.675 ; Atherosclerosis of nikolai arteries of extremities with intermittent claudication, bilateral [...] toe(s) (ICD-10 - M79.675) 08/04/2024 Atherosclerosis of nikolai arteries of extremities with intermittent claudication, bilateral [...] Ida GRANDE RDOB: 1 (64 yo F)Acc No.[id number]:08/04/2024 Progress Notes Patient: Ida KNOWLES Kassie Provider: Oliver Ahmadi DPM :1960 A ge:63 Y S ex:Female Date:08/04/2024 Address:[address] [facility], [address] [place], [place] [id number] Subjective: * Chief Complaints: * 1 . [...] D ate last seen by Dr. Breann agma as 07/2024., [facility]. * ROS: G eneral / [...] Edema: N o edema bilateral. N eurologic: [place] 5.07 monofilament d iminished protective sensation via [...] - M79.675 4 . A therosclerosis of nikolai arteries of extremities with intermittent claudication, bilateral [...] develop.) * Billing Information: * Visit Code: 20636 Office Visit, New Pt., Level 3. * Procedure Codes: * Electronic signature of JESUS MANUEL AHMADI DPM on 01/20/2025 at 11:49 AM CDT Sign off status: Pending * Provider: Oliver Ahmadi DPM Date: 0 08/04/2024 Generated for Sara ovalle/Bowen/Aranza on: 0 01/20/2025 11:49 AM CDT History and Physical Notes * [...] debris. They are painful to palpation Neurologic [place] 5.07 monofilamen t diminished protective sensation via [...]
--- OUTSIDE RECORDS SUMMARY | 2025-01-20 11:49 | XMS_ITS ---
Author Organization [facility] Address [address] [place], [place] [address] Care Team Providers Care Head Of Design Name Role Phone JESUS MANUEL AHMADI Unavailable [phone] Diann Crain Unavailable Unavailable JESUS MANUEL ORTEGA Unavailable [phone] REASON FOR VISIT *General care, sick Social History Sex Assigned At : Social History Observation Description Sex Assigned At Female Encounters Encounter Location Date Provider Diagnosis [facility] [place] [address] [facility] [address] [place], [place] [id number] 12/08/2024 JESUS MANUEL ORTEGA Plan Of Treatment No Information Progress Notes * Ida GRANDE RDOB: (64 yo F)Acc No.[id number]:12/08/2024 Patient: Sarah Ida MINER Provider: Oliver Ortega DPM :1960 A ge:64 Y S ex:Female Date:12/08/2024 Address:[address] [facility], [address] [place], [place] Subjective: * Chief Complaints: * 1 . *General care, sick. * Medical History: Objective: * Vitals: Assessment: Plan: * Treatment: * Billing Information: * Visit Code: * Procedure Codes: * Electronic signature of JESUS MANUEL ORTEGA DPM on 01/20/2025 at 11:49 AM CDT Sign off status: Pending * Provider: Oliver Ortega, MG Date: 0 12/08/2024 Generated for Sara ovalle/Bowen/Aranza on: 0 01/20/2025 11:49 AM CDT
--- OUTSIDE RECORDS SUMMARY | 2025-01-20 11:49 | XMS_ITS ---
Author Organization [facility] Address [address] [place] [address] Care Team Providers Care Plastic Parts Designer Name Role Phone Diann Crain WEB FEEDER-TRACTOR ENGINE ASSEMBLER Primary Care Provid er Active Problems Problem Noted Date Diagnosed Date Diabetes mellitus, type 2 01/05/2025 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 x 12/27/2024 Current Treatment and Therapy Plans No current plan information found. Past Treatment and Therapy Plans No past plan information found. Radiation Treatments * Course [id number] 12/22/2024 - 01/10/2025 Treatment Period Energy Fraction Dose Fractions Total Dose Plans Planned Cervix 3000 12/22/2024 - 01/10/2025 5 / 3,000 cGy Reference Points Delivered
--- OUTSIDE RECORDS SUMMARY | 2025-01-20 11:49 | XMS_ITS | Clinical Summary ---
Author Organization [facility] Address [address] [facility] [place] [address] Care Team Providers Care Ice Cream Van Vendor Name Role Phone Diann Crain TOOL ROOM LATHE OPERATOR-STRATEGY ASSOCIATE Primary Care Provid er Source Comments [facility],non-owned Affiliates and Associated Physician Practices is amultiple site organization consisting of ambulatory clinics and hospital sitesin [place], [place], [place] and [place]. This disclosure is being madepursuant to the Care Everywhere program and may not contain all information available regarding this patient. Last updated 18.[facility] Allergies Active Allergy Reactions Criticality Noted [...] Office Visit [facility] - Rad/Onc [address] [place] [phone] Montana Lakhani MD 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 (HCC) (Primary Dx) 01/10/2025 7:22 AM CDT Anesthesia Event [facility] [address] [place] [address] Wally Serrano MD Levin, Vitaly F, MD 01/10/2025 7:15 AM CDT - 01/10/2025 8:24 AM CDT Surgery [facility] [address] [place] [address] Saran Troy MD TANDEM AND RING PLACEMENT 01/10/2025 5:32 AM CDT - 01/10/2025 11:53 AM CDT Hospital Encounter [facility] [address] [place] [address] Saran Troy MD Surgery General Discharge Disposition: Home or Self Care 01/10/2025 Travel 01/05/2025 9:30 AM CDT Office Visit [facility] - Rad/Onc [address] [place] [phone] Montana Lakhani MD 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 (HCC) (Primary Dx) 01/05/2025 7:25 AM CDT Anesthesia Event [facility] [address] [place] [address] Milly Rausch MD Levin, Vitaly F, MD 01/05/2025 7:15 AM CDT - 01/05/2025 8:45 AM CDT Surgery [facility] [address] [place] [address] Antonia Rodriguez MD PLACEMENT OF TANDEM AND RING 01/05/2025 5:10 AM CDT - 01/05/2025 12:21 PM CDT Hospital Encounter [facility] [address] [place] [address] Antonia Rodriguez MD Surgery General Discharge Disposition: Home or Self Care 01/05/2025 Travel 01/03/2025 9:30 AM CDT Office Visit [facility] - Rad/Onc [address] [place] [phone] Montana Lakhani MD 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 (HCC) (Primary Dx) 01/03/2025 7:21 AM CDT Anesthesia Event [facility] [address] [place] [address] Milly Rausch MD Will, Margaret HKISHOREN-SLEEVE SETTER SAFETY STITCH 01/03/2025 7:15 AM CDT - 01/03/2025 8:24 AM CDT Surgery [facility] [address] [place] [address] Saran Troy MD PLACEMENT OF TANDEM AND RING 01/03/2025 5:26 AM CDT - 01/03/2025 12:20 PM CDT Hospital Encounter [facility] [address] [place] [address] Saran Troy MD Surgery General Discharge Disposition: Home or Self Care 12/27/2024 9:30 AM CDT Office Visit [facility] - Rad/Onc [address] [place] [phone] Montana Lakhani MD 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 (HCC) (Primary Dx) 12/27/2024 7:23 AM CDT Anesthesia Event [facility] [address] [place] [address] Milly Rausch MD 12/27/2024 7:15 AM CDT - 12/27/2024 8:15 AM CDT Surgery [facility] [address] [place] [address] Montana Villa MD PLACEMENT OF TANDEM AND RINGS 12/27/2024 5:50 AM CDT - 12/27/2024 12:45 PM CDT Hospital Encounter [facility] [address] [place] [phone] Montana Villa MD Surgery General Discharge Disposition: Home or Self Care 12/27/2024 Travel 12/26/2024 Travel 12/22/2024 9:30 AM CDT Office Visit [facility] - Rad/Onc [address] [place] [phone] Montana Lakhani MD 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 (HCC) (Primary Dx) 12/22/2024 7:21 AM CDT Anesthesia Event [facility] [address] [place] [address] Jay Jones MD Hogan, Steven 12/22/2024 7:15 AM CDT - 12/22/2024 8:21 AM CDT Surgery [facility] [address] [place] [address] Lamont Cueva MD PLACEMENT OF TANDEM AND RING 12/22/2024 5:42 AM CDT - 12/22/2024 12:45 PM CDT Hospital Encounter [facility] [address] [place] [address] Lamont Cueva MD Surgery General Discharge Disposition: Home or Self Care 12/22/2024 Travel 12/21/2024 Travel 12/21/2024 Telephone [facility] - TITLE I COORDINATOR [address] [facility] [address] [place] [address] Antonia Rodriguez MD Question 12/20/2024 Telephone [facility] - Rad/Onc [address] [place] [phone] Argentina Rosenthal RN Appointment 12/20/2024 Travel 12/19/2024 Telephone [facility] - TITLE I COORDINATOR [address] [facility] [place] [phone] Montana Villa MD Question 12/13/2024 Telephone [facility] - Rad/Onc [address] [place] [phone] Argentina Rosenthal, RN Appointment 12/12/2024 Travel 12/02/2024 Telephone [facility] Rad/Onc [address] [place] [phone] Argentina Rosenthal, RN Appointment 11/16/2024 1:00 PM CDT - 12/18/2024 11:59 PM CDT Hospital Encounter [facility] - Radiation Oncology [address] [place] [address] Montana Lakhani MD Discharge Disposition: Home or Self Care 11/16/2024 1:00 PM CDT Office Visit [facility] Rad/Onc [address] [place] [phone] Montana Lakhani MD 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 (HCC) (Primary Dx) 11/16/2024 Travel 11/04/2024 Travel 10/26/2024 Telephone [facility] - Rad/Onc [address] [place] [phone] Argentina Rosenthal, RN Follow-up 10/26/2024 Orders Only [facility] - TITLE I COORDINATOR [address] [facility] [address] [place] [phone] Antonia Rodriguez MD Malignant neoplasm of cervix, unspecified site (HCC) 10/26/2024 Telephone [facility] - Rad/Onc [address] [place] [phone] Argentina Rosenthal, RN Appointment from [...] on file Legal Sex Female 1:25 PM COAT FELLER Gender Identity Not on file Sexual Orientation [...] Visit [facility] - Rad/Onc [address] [place] [phone] Montana Lakhani MD [address] [place] [address] Health Maintenance Due Date Last [...] MASK AIRWAY Routine 01/10/2025 7:34 AM CDT [place] INSERT UTERI TANDEMS/OVOIDS 01/10/2025 7:08 AM CDT Diagnosis unknown GLUCOSE - POINT OF CARE Routine 01/10/2025 6:02 AM CDT CARDIAC RHYTHM STRIP ORDER 01/09/2025 6:21 PM CDT CARDIAC RHYTHM STRIP ORDER 01/05/2025 4:23 PM CDT GLUCOSE - POINT OF CARE Routine 01/05/2025 11:58 AM CDT GLUCOSE - POINT OF CARE Routine 01/05/2025 8:00 AM CDT NJ INSERT UTERI TANDEMS/OVOIDS 01/05/2025 7:10 AM CDT [...] MASK AIRWAY Routine 01/03/2025 7:37 AM CDT [place] INSERT UTERI TANDEMS/OVOIDS 01/03/2025 6:35 AM CDT [...] OF CARE Routine 12/27/2024 6:48 AM CDT NJ INSERT UTERI TANDEMS/OVOIDS 12/27/2024 6:45 AM CDT Diagnosis unknown CARDIAC RHYTHM STRIP ORDER 12/26/2024 6:38 PM CDT RAD ONC ARIA SESSION SUMMARY Routine 12/22/2024 11:27 AM CDT GLUCOSE - POINT OF CARE Routine 12/22/2024 8:10 AM CDT CULTURE URINE STAT 12/22/2024 7:44 AM CDT Diagnosis unknown ENDOTRACHEAL TUBE NOTE Routine 12/22/2024 7:38 AM CDT [place] INSERT UTERI TANDEMS/OVOIDS 12/22/2024 7:06 AM CDT [...] Summary (01/10/2025 10:42 AM CDT) Course ID [id number] xTnO RAD ONC TREATMENT Course First Treatment [...] Summary (01/10/2025 10:42 AM CDT) Course ID [id number] xTnO RAD ONC TREATMENT Course First Treatment [...] 99 mg/dL 01/10/2025 8:14 AM CDT [facility] Specimen Type Arterial/C apillary 01/10/2025 8:14 AM CDT [facility] Blood BLOOD SPECIMEN / Unknown 01/10/2025 8:08 AM CDT 01/10/2025 8:14 AM CDT Saran Troy MD LAB - POINT OF CARE ORDERABLES Final Result Performing Organization Address City/[facility]/ZIP Co de Phone Number [facility] [address] [place] [address] * LARYNGEAL MASK AIRWAY (01/10/2025 7:34 AM [...] Summary (01/03/2025 11:22 AM CDT) Course ID [id number] xTnO RAD ONC TREATMENT Course First Treatment [...] Summary (01/03/2025 11:21 AM CDT) Course ID [id number] xTnO RAD ONC TREATMENT Course First Treatment [...] F inal Result Performing Organization Address City/[facility] Co de Phone Number RAD ONC TREATMENT * CULTURE URINE (01/03/2025 7:52 AM CDT) Only the most recent of2 resultswithin the time period is included. Culture Urine No growth (<100 CFU/mL) [place] 01/04/2025 3:15 PM CDT [facility] MICROBIOLOGY Urine URINE SPECIMEN COLLECTION, CATHETERIZED / Unknown Collection / Unknown 01/03/2025 7:52 AM CDT 01/03/2025 8:41 AM CDT Comment:Pre-op diagnosis: Diagnosis unknown [R69] Saran Troy MD LAB - MICROBIOLOGY ORDERABLES Final Result Performing Organization Address City/[facility]/ZIP Co de Phone Number [facility] MICROBIOLOGY [address] [place] [address], [facility] [phone] * LARYNGEAL MASK AIRWAY (01/03/2025 7:37 AM CDT) Narrative Shelby Garcia APRN-SLEEVE SETTER SAFETY STITCH - 01/03/2025 7:37 AM CDShelby Diaz APRN-CRNA [...] 15.8 g/dL 12/27/2024 7:06 AM CDT [facility] Hematocrit 30.2(L) 34.8 - 46.1 % 12/27/2024 7:06 AM CDT [facility] Blood BLOOD SPECIMEN / Unknown Venipuncture / Unknown 12/27/2024 6:49 AM CDT 12/27/2024 7:03 AM CDT Jerry Deleon MD LAB - HEMATOLOGY ORDERABLES Teresa l Result [facility] [address] [place] [address] * Rad Onc Aria Session Summary (12/22/2024 11:27 AM CDT) Course ID [id number] xTnO RAD ONC TREATMENT Course First Treatment Date 12/22/2024 11:26 AM RAD ONC TREATMENT Plan ID Cervix 3000 RAD ONC TREATMENT Plan Fractions Treated to Date 1 RAD ONC TREATMENT Plan Total Fractions Prescribed 5 RAD ONC TREATMENT Plan Total Prescribed Dose 3000 cGy RAD ONC TREATMENT 12/22/2024 11:2 7 AM CDT Result [facility] Provider Unknown RADIATION ONCOLOGY ORDERABLES F inal Result Performing Organization Address City/[facility] Co de Phone Number RAD ONC TREATMENT * ETT LINE PERFORMABLE (12/22/2024 7:38 AM CDT) Narrative José Antonio Child APRN-CRNA - 12/22/2024 7:38 AM CDT José Antonio Child APRN-CRNA 12/22/2024 7:40 AM Endotracheal Tube Placement: Patient Location: OR. Intubation Event Date/Time: 12/22/2024 7:27 AM Procedure: intubation ([id number]) Procedure Section: Sedation: under general anesthesia. Indications [...] Last 3 Months Insurance ANTHEM Care Teams Ice Cream Van Vendor Relationship Specialty Start Date End Date Diann Crain, TOOL ROOM LATHE OPERATOR-STRATEGY ASSOCIATE [address] [place] [address] PCP - General Nurse Practitioner Family 09/15/24
--- OUTSIDE RECORDS SUMMARY | 2025-01-20 11:49 | XMS_ITS | Encounter Summary ---
Author Organization [facility] Address [address] [facility] [place] [address] Phone Care Team Providers Care Plant Maintenance Mechanic Name Role Phone Diann Crain APRN, BUTCHER ASSISTANT Primary Care Provi scot Antonia Rodriguez MD Unavailable [phone] Malvin Estrada MD Unavailable Taqueria Gresham MD Unavailable Montana Lakhani MD Unavailable Encounter Details Date Type Department Care Team (Late st Contact Info) Description 01/19/[address] [facility] Oncology Services [address] [place] [address] Malvin Estrada MD [address] [place] [address] Social History Tobacco Use Types Packs/Day Years [...] encounter Miscellaneous Notes * Telephone Encounter - Malvin Estrada MD - 01/19/2025 1:39 PM CDT CBC, CMP , iron, ferritin And IV fluids 1 L NS * Telephone Encounter - Sanam Diaz RN - 01/19/2025 11:06 AM CDT Spoke with pt regarding nausea and vomiting. Pt states she has been feeling weak, fatigue, and nausea with vomiting since last Thursday when she had her last internal radiation tx. Pt states she continues to take Zofran, drink fluids and eat but having trouble keeping intake down. Pt states she doesnot have any Compazine. Educated pt rx for Compazine being sent to pharmacy and educated on dose, frequency, and to alternate with the Zofran. Continue to push fluids and eat bland diet as tolerated.Pt states she can not come in for hydration today and does not feel that she needs to go to ER. Pt added to schedule tomorrow for labs and fluids- educated pt if symptoms worsen to go to ER for evaluation and treatment. Pt verbalized understanding. * Telephone Encounter - Roberta Alvares LPN - 01/19/2025 10:41 AM CDT Patient called stating she is not feeling well at all. States she went to [facility] 2 days ago for fluids. Weakness, fatigue, nausea. Feels like she cannot even function. Last treatment here was on on 12/12/24. Requesting Infusion Nurse call back. Routed to Infusion Nurses. documented in this encounter Plan of Treatment Upcoming Encounters Date Type Department Care Team (Late st Contact Info) Description 03/14/2025 9:30 AM CDT Office Visit [facility] Oncology Services [address] [place] [address] Barry Martin MD [address] [place] [address] Discharge Disposition: Discharged to home or Selfcare documented as of this encounter Visit Diagnoses Diagnosis Cervical cancer, FIGO stage IIB (HCC) documented in this encounter Care Teams Plant Maintenance Mechanic Relationship Specialty Start Date End Date Diann Crain, SYSTEM DEVELOPER ASSOCIATE MANAGER, BUTCHER ASSISTANT [address] [place] [address] PCP - General Advanced Practice Nurse 10/10/24 Antonia Rodriguez MD [address] [address] Consulting Physician Gynecologic Oncology 10/11/24 Malvin Estrada MD [address] [place] [address] Consulting Physician Medical Oncology 10/11/24 Taqueria Gresham MD [address] [place] [address] Consulting Physician Radiation Oncology 10/11/24 Montana Lakhani MD [address] [place] [address] Consulting Physician Radiation Oncology 10/12/24 documented as of this encounter
--- NOTE | 2025-01-20 11:56 | ED_ITS ---
HPI - Nausea/Vomiting/Diarrhea General Chief complaint: Nausea/Vomiting/Diarrhea Stated complaint: vomiting Time Seen by Provider: 01/20/25 11:48 Source: patient and family Mode of arrival: ambulatory Limitations: no limitations History of Present Illness HPI Narrative: Patient is a 64-year-old female with cervical cancer having radiation and chemotherapy over the last month and significant nausea and vomiting. She was told to come to the emergency room today by the oncologist. She has tried outpatient rehydration and anti nausea medication without success. She was here last week for IV fluids and discharged home. She has failed again outpatient therapy. No chest pain or shortness of breath. No abdominal pain. She has been having diarrhea after eating foods. MD elicited complaint: nausea, vomiting and diarrhea Pertinent past history: other ( Cervical cancer with treatment in the past month) Onset (ago): month(s) ( 1) Description of vomiting: food contents and watery Description of diarrhea: watery and lose Associated nausea: Yes Associated abdominal pain: No Location of pain: none Radiation: does not radiate Pain consistency: other ( no pain) Severity: moderate Pain scale (0-10): 0 Quality: other ( no pain) Exacerbating factors: eating Relieving factors: other ( she has tried multiple anti nausea medications without success) Context: other ( cervical cancer with chemotherapy in the last month with secondary nausea vomiting and diarrhea and anorexia) Associated symptoms: malaise, nausea/vomiting, weakness and other ( generalized weakness) Treatment prior to arrival: immodium, fluids and other ( anti nausea medication) Related Data Home Medications ?Medication ?Instructions ?Recorded ?Confirmed ?Last Taken ?Type gabapentin 300 mg capsule mg 01/17/25 Unknown History Allergies Allergy/AdvReac Type Severity Reaction Status Date / Time Yeast Allergy Severe Anaphylactic Verified 01/17/25 15:06 Shock amoxicillin Allergy Intermediate unknown Verified 01/17/25 15:06 erythromycin base Allergy Intermediate unknown Verified 01/17/25 15:06 Sulfa (Sulfonamide Allergy Intermediate Unknown Verified 01/17/25 15:06 Antibiotics) Penicillins Allergy Unknown Anaphylaxis Verified 01/17/25 15:06 Review of Systems 2 Review of Systems: All systems reviewed & are unremarkable except as noted in HPI and below Constitutional: Constitutional: Reports no additional constitutional complaints Eyes: Eyes: Reports no additional eye complaints ENT: Reports system reviewed and no additional complaints, except as documented Cardiovascular: Cardiovascular: Reports no additional cardiovascular complaints Respiratory: Respiratory: Reports no additional respiratory complaints Gastrointestinal: Gastrointestinal: Reports no additional gastrointestinal complaints Genitourinary: Genitourinary: Reports no additional female genitourinary complaints Musculoskeletal: Musculoskeletal: Reports no additional musculoskeletal complaints Integumentary/Breasts: Skin/Breast: Reports system reviewed and no additional complaints, except as docu Neurologic: Reports system reviewed and no additional complaints, except as documented Psychiatric: Psychiatric: Reports no additional psychiatric complaints Endocrine: Endocrine: Reports no additional endocrine complaints Hematologic/Lymphatic: Hematologic/Lymphatic: Reports no additional hematologic/lymphatic complaints Allergic/Immunologic: Allergic/Immunologic: Reports no additional allergic/immunologic complaints PMFSH Past Medical History Medical History Colon cancer screening Migraines Diabetes History of shingles History of chicken pox Surgical History Surgical History History of incision and drainage 04/18/24 Complex incision and drainage of diabetic left foot abscess. Dr. Dominique H/O oral surgery Social History Social History Smoking status: Never smoker Tobacco type: cigarettes Second hand tobacco smoke exposure: No Alcohol intake: never Alcohol use details: Allergy to beer Substance use: never Substance use type: does not use Do You Feel Safe in your Home?: Yes Lack of Transportation: YES Lack of Food: Never True Current Housing: I Have Housing Concerned About Future Housing: No Difficulty Paying Gas/Electric Bills: No Difficulty Paying for Meds: No Currently Unemployed: No Education: High School Diploma/GED Difficulty w/ Childcare or Family Care: No Living arrangements: alone Spiritual care concerns: No Exam 2 Const: General: healthy appearing Nutritional Appearance: well nourished Orientation/consciousness: patient oriented x3 Limitations: no limitations HENMT: Head: normal to inspection Ears: external ears normal F etienne/Nose/Sinus: Normal external nose present Eyes: Conjunctivae: conjunctivae normal Cornea: corneas normal Pupils: E qual, round and reactive pupils present Neck: Neck: normal visual inspection Chest: Chest palpation & inspection: normal inspection of the chest Resp: Effort & Inspection: normal respiratory effort and not labored A uscultation: clear to auscultation bilaterally and no crackles Cardio: Rate: regular rate Rhythm: regular rhythm Heart sounds: no murmurs GI: Inspection: non-distended GI Palp: Yes Soft to palpation and No Tenderness to palpation present (GI) Auscultation: normal bowel sounds : General: Yes bladder normal to palpation Back/Spine/Pelvis: Back: no CVA tenderness Skin: General skin exam: normal color Rashes: no rashes Wounds: no wounds Neuro: General: patient oriented x3, moves all extremities, no meningeal signs, no focal motor deficits and CN's II-XI intact bilaterally Cranial nerves: Yes Nystagmus not present Speech: normal speech Gait exam (Neuro): Normal gait present Other: generalized weakness without focal change; fast exam negative, NIH score is 0, GCS is 15 Extrem: General: normal to inspection Psych: Mental Status: mental status grossly normal Affect: normal affect Attitude: cooperative Course Vital Signs Vital signs: Vital Signs Temperature 36.4 C 01/20/25 11:40 Pulse Rate 82 01/20/25 11:40 Respiratory Rate 18 01/20/25 11:40 Blood Pressure 145/81 H 01/20/25 11:40 Pulse Oximetry 100 01/20/25 11:40 Oxygen Delivery Room Air 01/20/25 11:40 Temperature 36.4 C 01/20/25 11:40 Pulse Rate 83 01/20/25 13:31 Respiratory Rate 18 01/20/25 13:31 Blood Pressure 178/85 H 01/20/25 13:31 Pulse Oximetry 99 01/20/25 13:31 Oxygen Delivery Room Air 01/20/25 13:31 MDM - Nausea/Vomiting/Diarrhea MDM Narrative Medical decision making narrative: patient is a 64-year-old female with nausea vomiting diarrhea after chemotherapy in the past month. We will do laboratory and CT scan with EKG in urine at this time. We will give IV fluids. I suggested to the patient admission for IV fluid continuation and possible PPN/TPN. We needed transfer to higher level medical care possibly. [facility] due to non services for the weekend that would assist this patient and nurse practitioner Renetta has declined the case. We will attempt to admitted our facility next and see how she goes with treatment which may require transfer for feeding suggestions and treatment if still a problem after antibiotics and fluids. Lab Data Attestation: I reviewed the patient's lab results. 01/20/25 12:46 01/20/25 12:46 Labs: Lab Results 01/20/25 01/20/25 Range/Units 12:46 13:40 WBC 4.0 L (4.8-10.8) K/mm3 RBC 2.95 L (4.20-5.40) M/mm3 Hgb 8.9 L (12.0-15.0) g/dL Hct 26.4 L (35.0-49.0) % MCV 89.5 (78.0-102.0) fL MCH 30.2 (27.0-31.0) pg MCHC 33.7 (32-36) g/dL RDW 16.6 H (11.6-14.4) % Plt Count 160 (150-420) K/mm3 MPV 9.0 L (9.2-11.8) fl Immature Gran % (Auto) 0.8 H (0.0-0.0) % Neut % (Auto) 79.5 H (50.0-70.0) % Lymph % (Auto) 8.1 L (18.0-42.0) % [place] % (Auto) 8.3 (2.0-11.0) % Eos % (Auto) 2.0 (1.0-6.0) % Baso % (Auto) 1.3 H (0.0-1.0) % Lymph # (Auto) 0.32 L (1.10-4.50) K/mm3 [place] # (Auto) 0.33 (0.10-0.90) K/mm3 Eos # (Auto) 0.08 (0.02-0.50) K/mm3 Baso # (Auto) 0.05 (0.00-0.10) K/mm3 Abs Immat Gran (auto) 0.03 H (0.00-0.00) K/mm3 Absolute Neuts (auto) 3.16 (1.70-7.20) K/mm3 Absolute Nucleated RBC 0.00 (0.00-0.00) K/mm3 Nucleated RBC % 0.0 (0-0.0) % Sodium 133 L (137-145) mmol/L Potassium 4.5 (3.4-5.0) mmol/L Chloride 101 (98-107) mmol/L Carbon Dioxide 23 (22-30) mmol/L Anion Gap 9 (4-12) mmol/L BUN 19 H D (7-17) mg/dL Creatinine 1.34 H (0.7-1.0) mg/dL Estim Creat Clear Calc 38 ml/min Estimated GFR 40 L (59 - ) Glucose 141 H (65-110) mg/dL Calculated Osmolality 280 L (285-295) mOsm/kg Lactic Acid 1.4 (0.4-2.0) mmol/L Calcium 9.6 (8.4-10.2) mg/dL Total Bilirubin 1.0 (0.2-1.3) mg/dL AST 17 (14-36) U/L ALT 9 (6-35) U/L Alkaline Phosphatase 40 (38-126) U/L Troponin I < 0.012 (0.000-0.034) ng/mL Total Protein 6.4 (6.3-8.2) g/dL Albumin 4.0 (3.5-5.1) g/dL Urine Color Light yellow (Yellow) Urine Appearance Clear (Clear) Urine pH 7.0 (5.0-8.0) Ur Specific [place] 1.015 (1.010-1.020) Urine Protein 2+ H (Negative) Urine Glucose (UA) Negative (Negative) Urine Ketones 1+ H (Negative) Ur Blood (Man) 3+ H (Negative) Urine Nitrate Negative (Negative) Urine Bilirubin Negative (Negative) Urine Urobilinogen 1.0 (0.2-1.0) mg/dL Leukocyte Esterase Rfl Trace H (Negative) BRANDEN/UL Urine RBC >75 H (0-2) /hpf Urine WBC 4-6 H (0-3) /hpf Ur Squamous Epith Cells Few (Few) /hpf Urine Bacteria Trace (None) /hpf Imaging Data Attestation: I personally reviewed and interpreted this imaging study as follows: Radiologist's impression: CT scan of the abdomen and pelvis shows cystitis and ascending left infection early ECG Data EKG #1: Attestation: I personally reviewed and interpreted this ECG as follows: ECG completion date: 01/20/25 ECG completion time: 13:17 Prior ECG tracings: available for review ( No acute change) EKG Interpretation: normal rate, sinus rhythm, no ectopy, non-specific ST changes, normal QRS, normal QT and left axis Discharge Plan Discharge Clinical Impression: Pyelonephritis of left kidney, Acute dehydration Cervical cancer Qualifiers: Malignant neoplasm of cervix location: unspecified location Qualified Code(s): C53.9 - Malignant neoplasm of cervix uteri, unspecified CKD (chronic kidney disease) Qualifiers: Chronic kidney disease stage: unspecified stage Qualified Code(s): N18.9 - Chronic kidney disease, unspecified Patient Disposition: [facility] ([place], [place] Condition: Stable Patient Language: Senegalese Prescriptions: No Action gabapentin 300 mg capsule ondansetron 4 mg tablet,disintegrating 4 mg PO DAILY 3 Days Qty: 10 0RF levofloxacin 500 mg tablet 500 mg PO DAILY 6 Days Qty: 6 0RF (DME) blood-glucose meter Kit See Rx Instructions .Route Qty: 1 0RF Rx Instructions: As directed insulin glargine [Lantus Solostar U-100 Insulin] 100 unit/mL (3 mL) insulin pen 15 unit subcut QPM Qty: 15 3RF (DME) lancets [Acti-Estuardo Lancets] 28 gauge misc See Rx Instructions .Route Qty: 100 3RF Rx Instructions: BID metformin 500 mg tablet extended release 24 hr 500 mg PO BID Qty: 90 5RF (DME) Blood Glucose Test Strip See Rx Instructions .Route Qty: 50 3RF Rx Instructions: BID insulin lispro 100 unit/mL insulin pen See Rx Instructions subcut TID MDD 30 units Qty: 15 3RF Rx Instructions: SS BS 150-200: 2 units; BS 201-250: 4 units; BS 251-300: 6 units; 301-350: 8 units; 351-400: 10 units (DME) lancets [On-The-Go Lancets] 30 gauge misc See Rx Instructions .Route Qty: 100 1RF Rx Instructions: ACHS (DME) FreeStyle Kim 3 [place] Misc See Rx Instructions .Route Qty: 1 0RF Rx Instructions: As directed (DME) FreeStyle Kim 3 Sensor Device See Rx Instructions .Route Qty: 6 12RF Rx Instructions: As directed ondansetron 4 mg tablet,disintegrating 4 mg PO Q8H PRN (Reason: nausea and vomiting) Qty: 30 0RF magnesium oxide 400 mg (241.3 mg magnesium) tablet See Rx Instructions .ROUTE .COMPLEX Qty: 120 1RF Dose Instruction: TAKE 1 TABLET BY MOUTH TWICE A DAY Rx Instructions: TAKE 1 TABLET BY MOUTH TWICE A DAY Follow-up/Referrals: Diann Crain NP [Primary Care Provider] - Time of Disposition: 13:38
--- OUTSIDE RECORDS SUMMARY | 2025-01-20 12:15 | XMS_ITS ---
Author Organization [facility] Address [address] [place] [address] Phone Care Team Providers Care Joist Setter Name Role Phone Diann Crain DUST COLLECTOR ATTENDANT, PLANNING ASSOCIATE Primary Care Provi scot Antonia Rodriguez MD Unavailable [phone] Malvin Estrada MD Unavailable [phone] Taqueria Gresham MD Unavailable [phone] Montana Lakhani MD Unavailable [phone] Active Problems Problem Noted Date Diagnosed Date [...]
--- OUTSIDE RECORDS SUMMARY | 2025-01-20 12:16 | XMS_ITS | Encounter Summary ---
Author Organization [facility] Address [address] [facility] [place] [address] Phone Care Team Providers Care Environmental Engineering Assistant Name Role Phone Diann Crain APRN, GEOSCIENCES FACULTY MEMBER Primary Care Provi scot Antonia Rodriguez MD Unavailable [phone] Malvin Estrada MD Unavailable Taqueria Gresham MD Unavailable Montana Lakhani MD Unavailable Encounter Details Date Type Department Care Team (Late st Contact Info) Description 01/19/2025 Telephone [facility] Oncology Services [address] [place] [address] Malvin Estrada MD [address] [place] [address] Social History Tobacco Use Types Packs/Day Years [...] well at all. States she went to [facility] 2 days ago for fluids. Weakness, fatigue, nausea. Feels like she cannot even function. Last treatment here was on on 12/12/24. Requesting Infusion Nurse call back. Routed to Infusion Nurses. documented in this encounter Plan of Treatment Upcoming Encounters Date Type Department Care Team (Late st Contact Info) Description 03/14/2025 9:30 AM CDT Office Visit [facility] Oncology Services [address] [place] [address] Barry Martin MD [address] [place] [address] Discharge Disposition: Discharged to home or Selfcare documented as of this encounter Visit Diagnoses Diagnosis Cervical cancer, FIGO stage IIB (HCC) documented in this encounter Care Teams Environmental Engineering Assistant Relationship Specialty Start Date End Date Diann Crain, TENTS ASSEMBLER, GEOSCIENCES FACULTY MEMBER [address] [place] [address] PCP - General Advanced Practice Nurse 10/10/24 Antonia Rodriguez MD [address] [address] Consulting Physician Gynecologic Oncology 10/11/24 Malvin Estrada MD [address] [place] [address] Consulting Physician Medical Oncology 10/11/24 Taqueria Gresham MD [address] [place] [address] Consulting Physician Radiation Oncology 10/11/24 Montana Lakhani MD [address] [place] [address] Consulting Physician Radiation Oncology 10/12/24 documented as of this encounter
--- OUTSIDE RECORDS SUMMARY | 2025-01-20 12:16 | XMS_ITS ---
Author Organization [facility] Address [address] [facility] [place] [address] Care Team Providers Care Drop Hammer Operator Helper Name Role Phone Diann Crain SCIENTIFIC SOFTWARE ENGINEER-DIRECTOR CONSTRUCTION SERVICES Primary Care Provid er Active Problems Problem Noted Date Diagnosed Date Diabetes mellitus, type 2 01/05/2025 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 x 12/27/2024 Current Treatment and Therapy Plans No current plan information found. Past Treatment and Therapy Plans No past plan information found. Radiation Treatments * Course [id number] 12/22/2024 - 01/10/2025 Treatment Period Energy Fraction Dose Fractions Total Dose Plans Planned Cervix 3000 12/22/2024 - 01/10/2025 5 / 3,000 cGy Reference Points Delivered
--- OUTSIDE RECORDS SUMMARY | 2025-01-20 12:16 | XMS_ITS | Clinical Summary ---
Author Organization [facility] Address [address] [place] [address] Care Team Providers Care Network Support Administrator Name Role Phone Chu Lorenzo MD Primary [...] Sex Assigned at Female 04/29/2018 9:29 PM SUCTION PLATE ROLLER HAND Legal Sex Female 5:33 PM SUCTION PLATE ROLLER HAND Gender Identity Female 04/29/2018 9:29 PM SUCTION PLATE ROLLER HAND Sexual Orientation Straight 04/29/2018 9: 29 PM SUCTION PLATE ROLLER HAND Last Filed Vital Signs Vital Sign Reading Time Taken Comments Blood Pressure 144/79 05/04/2018 1:50 PM SUCTION PLATE ROLLER HAND Pulse 69 05/04/2018 1:50 PM SUCTION PLATE ROLLER HAND Temperature 36.6 C (97.9 F) 05/04/2018 1:50 PM SUCTION PLATE ROLLER HAND Respiratory Rate 18 05/04/2018 1:50 PM SUCTION PLATE ROLLER HAND Oxygen Saturation 100% 05/04/2018 1:50 PM SUCTION PLATE ROLLER HAND Inhaled Oxygen Concentration - - Weight 86.8 kg (191 lb 5.8 oz) 05/04/2018 4:43 A M SUCTION PLATE ROLLER HAND Height 172.7 cm (5' 8) 04/29/2018 9:12 PM SUCTION PLATE ROLLER HAND Body Mass Index 29.1 04/29/2018 9:12 PM SUCTION PLATE ROLLER HAND Plan of Treatment Health Maintenance Due Date [...] patient's age to complete this topic Insurance [facility] [address] Advance Directives * Full Code (Latest Code Status on File) Date Activated Date Inactivated Comments 04/29/2018 11:48 PM 05/04/2018 7:30 PM Care Teams Network Support Administrator Relationship Specialty Start Date End Date Chu Lorenzo MD PCP - General SURGERY 04/24/18
--- OUTSIDE RECORDS SUMMARY | 2025-01-20 12:16 | XMS_ITS | Clinical Summary ---
Author Organization [facility] Address [address] [place] [address] Phone Care Team Providers Care Oil Field Worker Name Role Phone DavidbeatrisDiann STICKER HAND, TEXTILES PRINTER Primary Care Provi scot Antonia Rodriguez MD Unavailable [phone] Malvin Estrada MD Unavailable [phone] Taqueria Gresham MD Unavailable [phone] Montana Lakhani MD Unavailable [phone] Allergies Active Allergy Reactions Criticality Noted Date [...] [facility] [address] [place] [address] Malvin Estrada MD 01/19/2025 Telephone [facility] [address] [place] [address] Malvin Estrada MD 12/31/2024 Refill [facility] [address] [place] [address] Malvin Estrada MD Medication Refill 12/23/2024 Telephone [facility] [address] [place] [address] Bryanna Smith APRN, TEXTILES PRINTER 12/19/2024 Telephone [facility] [address] [place] [address] Malvin Estrada MD 12/19/2024 Telephone [facility] [address] [place] [address] Malvin Estrada MD 12/12/2024 8:30 AM CDT Clinical Support [facility] [address] [place] [address] Bryanna Smith, STICKER HAND, TEXTILES PRINTER Cervical cancer, FIGO stage IB (HCC) (Primary Dx); Cervical cancer, FIGO stage IIB (HCC); Dysuria Discharge Disposition: Discharged to home or Selfcare 12/12/2024 8:15 AM CDT [facility] [address] [place] [address] Bryanna Smith APRN, CNP Cervical cancer, FIGO stage IB (HCC) (Primary Dx); History of therapeutic radiation; History of cancer chemotherapy; Dysuria; Chemotherapy induced diarrhea; Chemotherapy-induce d nausea Discharge Disposition: Discharged to home or Selfcare 12/12/2024 Travel 12/10/2024 Travel 12/07/2024 Documentation Only [facility] [address] [place] [phone] Yanet Black, BARI 12/05/2024 9:00 AM CDT Clinical Support [facility] [address] [place] [phone] Malvin Estrada MD Cervical cancer, FIGO stage IB (HCC) (Primary Dx); Cervical cancer, FIGO stage IIB (HCC) Discharge Disposition: Discharged to home or Selfcare 12/05/2024 9:00 AM CDT Office Visit [facility] [address] [place] [phone] Taqueria Gresham MD Butler, David Ferrell, MD Cervical cancer, FIGO stage IIB (HCC) (Primary Dx); Encounter for radiotherapy; Patient on combined chemotherapy and radiation Discharge Disposition: Discharged to home or Selfcare 12/05/2024 8:45 AM CDT Clinical Support [facility] [address] [place] [phone] Taqueria Gresham MD History of therapeutic radiation (Primary Dx); History of cancer chemotherapy; Cervical cancer, FIGO stage IB (HCC) Discharge Disposition: Discharged to home or Selfcare 12/05/2024 Travel 12/03/2024 Travel 12/02/2024 10:00 AM CDT Clinical Support [facility] [address] [place] [phone] Taqueria Gresham MD Discharge Disposition: Discharged to home or Selfcare 12/02/2024 Travel 12/01/2024 10:00 AM CDT Clinical Support [facility] [address] [place] [phone] Taqueria Gresham MD Discharge Disposition: Discharged to home or Selfcare 12/01/2024 Travel 11/30/2024 10:00 AM CDT Clinical Support [facility] [address] [place] [phone] Taqueria Gresham MD Discharge Disposition: Discharged to home or Selfcare 11/30/2024 Travel 11/29/2024 10:00 AM CDT Clinical Support [facility] [address] [place] [phone] Taqueria Gresham MD Discharge Disposition: Discharged to home or Selfcare 11/29/2024 Travel 11/28/2024 10:15 AM CDT Office Visit [facility] [address] [place] [phone] Taqueria Gresham MD Encounter for radiotherapy (Primary Dx); Patient on combined chemotherapy and radiation; Cervical cancer, FIGO stage IIB (HCC); Loose stools Discharge Disposition: Discharged to home or Selfcare 11/28/2024 10:00 AM CDT Clinical Support [facility] [address] [place] [phone] Taqueria Gresham MD Discharge Disposition: Discharged to home or Selfcare 11/28/2024 9:00 AM CDT Clinical Support [facility] [address] [place] [phone] Malvin Estrada MD Cervical cancer, FIGO stage IIB (HCC) (Primary Dx); Cervical cancer, FIGO stage IB (HCC) Discharge Disposition: Discharged to home or Selfcare 11/28/2024 Travel 11/27/2024 Travel 11/26/2024 Travel 11/25/2024 10:00 AM CDT Clinical Support [facility] [address] [place] [phone] Taqueria Gresham MD Discharge Disposition: Discharged to home or Selfcare 11/25/2024 Travel 11/24/2024 11:00 AM CDT Clinical Support [facility] [address] [place] [phone] Taqueria Gresham MD Cervical cancer, FIGO stage IIB (HCC) (Primary Dx); Diarrhea, unspecified type Discharge Disposition: Discharged to home or Selfcare 11/24/2024 10:00 AM CDT Documentation Only [facility] [address] [place] [phone] Taqueria Gresham MD Cervical cancer, FIGO stage IIB (HCC) Discharge Disposition: Discharged to home or Selfcare 11/24/2024 Travel 11/23/2024 10:00 AM CDT Clinical Support [facility] [address] [place] [phone] Malvin Estrada MD Diarrhea, unspecified type (Primary Dx) Discharge Disposition: Discharged to home or Selfcare 11/23/2024 10:00 AM CDT Clinical Support [facility] [address] [place] [phone] Taqueria Gresham MD Discharge Disposition: Discharged to home or Selfcare 11/23/2024 9:15 AM CDT Office Visit [facility] [address] [place] [phone] Malvin Estrada MD Baxley, Brandy M, APRN, TEXTILES PRINTER Cervical cancer, FIGO stage IIB (HCC) (Primary Dx); Neuralgic pain; Diarrhea, unspecified type Discharge Disposition: Discharged to home or Selfcare 11/23/2024 Travel 11/22/2024 10:00 AM CDT Clinical Support [facility] [address] [place] [phone] Taqueria Gresham MD Discharge Disposition: Discharged to home or Selfcare 11/22/2024 Travel 11/21/2024 10:15 AM CDT Office Visit [facility] [address] [place] [phone] Taqueria Gresham MD Encounter for radiotherapy (Primary Dx); Patient on combined chemotherapy and radiation; Cervical cancer, FIGO stage IIB (HCC); Loose stools Discharge Disposition: Discharged to home or Selfcare 11/21/2024 10:00 AM CDT Clinical Support [facility] [address] [place] [phone] Taqueria Gresham MD Discharge Disposition: Discharged to home or Selfcare 11/21/2024 9:00 AM CDT Clinical Support [facility] [address] [place] [phone] Malvin Estrada MD Cervical cancer, FIGO stage IIB (HCC) (Primary Dx) Discharge Disposition: Discharged to home or Selfcare 11/21/2024 Travel 11/19/2024 Travel 11/18/2024 10:00 AM CDT Clinical Support [facility] [address] [place] [phone] Taqueria Gresham MD Discharge Disposition: Discharged to home or Selfcare 11/18/2024 Travel 11/17/2024 10:00 AM CDT Clinical Support [facility] [address] [place] [phone] Taqueria Gresham MD Discharge Disposition: Discharged to home or Selfcare 11/17/2024 Travel 11/16/2024 10:00 AM CDT Clinical Support [facility] [address] [place] [phone] Taqueria Gresham MD Discharge Disposition: Discharged to home or Selfcare 11/16/2024 Travel 11/15/2024 10:00 AM CDT Clinical Support [facility] [address] [place] [phone] Taqueria Gresham MD Discharge Disposition: Discharged to home or Selfcare 11/15/2024 9:00 AM CDT Clinical Support [facility] [address] [place] [phone] Malvin Estrada MD Cervical cancer, FIGO stage IB (HCC) (Primary Dx); Cervical cancer, FIGO stage IIB (HCC) Discharge Disposition: Discharged to home or Selfcare 11/15/2024 Travel 11/14/2024 10:15 AM CDT Office Visit [facility] [address] [place] [phone] Taqueria Gresham MD Encounter for radiotherapy (Primary Dx); Patient on combined chemotherapy and radiation; Cervical cancer, FIGO stage IIB (HCC) Discharge Disposition: Discharged to home or Selfcare 11/14/2024 10:00 AM CDT Clinical Support [facility] [address] [place] [phone] Taqueria Gresham MD Discharge Disposition: Discharged to home or Selfcare 11/14/2024 Travel 11/13/2024 Travel 11/12/2024 Travel 11/11/2024 10:00 AM CDT Clinical Support [facility] [address] [place] [phone] Taqueria Gresham MD Discharge Disposition: Discharged to home or Selfcare 11/11/2024 Travel 11/10/2024 10:00 AM CDT Clinical Support [facility] [address] [place] [phone] Taqueria Gresham MD Discharge Disposition: Discharged to home or Selfcare 11/10/2024 Travel 11/09/2024 10:00 AM CDT Clinical Support [facility] [address] [place] [phone] Taqueria Gresham MD Discharge Disposition: Discharged to home or Selfcare 11/09/2024 Travel 11/08/2024 10:15 AM CDT Office Visit [facility] [address] [place] [phone] Taqueria Gresham MD Encounter for radiotherapy (Primary Dx); Patient on combined chemotherapy and radiation; Cervical cancer, FIGO stage IIB (HCC); Vagina bleeding Discharge Disposition: Discharged to home or Selfcare 11/08/2024 10:00 AM CDT Clinical Support [facility] [address] [place] [phone] Taqueria Gresham MD Discharge Disposition: Discharged to home or Selfcare 11/08/2024 9:40 AM CDT Office Visit [facility] [address] [place] [phone] Malvin Estrada MD 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 (HCC) (Primary Dx); Controlled type 2 diabetes mellitus without complication, with long-term current use of insulin; Chemotherapy induced diarrhea; Cervical cancer, FIGO stage IIB (HCC); Neuralgic pain Discharge Disposition: Discharged to home or Selfcare 11/08/2024 9:00 AM CDT Clinical Support [facility] [address] [place] [phone] Malvin Estrada MD Cervical cancer, FIGO stage IIB (HCC) (Primary Dx) Discharge Disposition: Discharged to home or Selfcare 11/08/2024 Travel 11/07/2024 Travel 11/06/2024 Travel 11/04/2024 10:00 AM CDT Clinical Support [facility] [address] [place] [phone] Taqueria Gresham MD Discharge Disposition: Discharged to home or Selfcare 11/04/2024 Travel 11/03/2024 10:00 AM CDT Clinical Support [facility] [address] [place] [phone] Taqueria Gresham MD Discharge Disposition: Discharged to home or Selfcare 11/03/2024 Travel 11/02/2024 10:00 AM CDT Clinical Support [facility] [address] [place] [phone] Taqueria Gresham MD Discharge Disposition: Discharged to home or Selfcare 11/02/2024 Documentation Only [facility] [address] [place] [phone] Taqueria Gresham MD 11/02/2024 Travel 11/01/2024 10:00 AM CDT Clinical Support [facility] [address] [place] [phone] Taqueria Gresham MD Discharge Disposition: Discharged to home or Selfcare 11/01/2024 Travel 10/31/2024 10:30 AM CDT Office Visit [facility] [address] [place] [phone] Taqueria Gresham MD Butler, David Ferrell, MD Cervical cancer, FIGO stage IB (HCC) (Primary Dx); 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 (HCC) Discharge Disposition: Discharged to home or Selfcare 10/31/2024 10:30 AM CDT [facility] [address] [place] [address] Malvin Estrada MD Cervical cancer, FIGO stage IIB (HCC) (Primary Dx) Discharge Disposition: Discharged to home or Selfcare 10/31/2024 10:00 AM CDT Clinical Support [facility] [address] [place] [address] Taqueria Gresham MD Butler, Barry Andres MD Cervical cancer, FIGO stage IB (HCC) (Primary Dx); 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 (HCC) Discharge Disposition: Discharged to home or Selfcare 10/31/2024 8:15 AM CDT Office Visit [facility] [address] [place] [phone] Bryanna Smith APRN, CNP Cervical cancer, FIGO stage IIB (HCC) (Primary Dx) Discharge Disposition: Discharged to home or Selfcare 10/31/2024 Travel 10/30/2024 Travel 10/29/2024 Travel 10/28/2024 Non-Scheduled Office Visit [facility] [address] [place] [phone] Taqueria Gresham MD Cervical cancer, FIGO stage IIB (HCC) (Primary Dx) 10/24/2024 Telephone [facility] [address] [place] [phone] Malvin Estrada MD 10/21/2024 Documentation Only [facility] [address] [place] [phone] Taqueria Gresham MD from Last 3 Months [...] Description 03/14/2025 9:30 AM CDT [facility] [address] [place] [address] Barry Martin MD [address] [place] [phone] Discharge Disposition: Discharged to home or Selfcare [...] 1.003 - 1.030 12/12/2024 10:11 AM CDT [facility] URINE PH 6.5 5.0 - 9.0 12/12/2024 [facility] W[facility] ESTERASE 25 /ul(A) Negative 12/12/2024 10:11 AM CDT [facility] NITRITE Negative Negative 12/12/2024 10:11 AM T [facility] PROTEIN, RANDOM URINE 500 mg/dL(A) Negative 12/12/2024 10:11 AM T [facility] URINE GLUCOSE, QUAL Negative Negative 12/12/2024 10:[address] [facility] URINE KETONES 15 mg/dL(A) Negative 12/12/2024 10:[address] [facility] UROBILINOGEN Normal Normal mg/dL 12/12/2024 10:11 AM T [facility] URINE BLOOD 150 /uL(A) Negative debbie/ul 12/12/2024 10:[address] [facility] URINALYSIS COLOR Yellow 12/13/19 10:[address] [facility] URINALYSIS CLARITY Very Cloudy 12/12/2024 10:[address] [facility] WBC (Urine) 51-150(A) Negative, 0-5 /hpf 12/12/2024 10:11 AM T [facility] URINE RBC'S 51-150(A) Negative, 0-2 /hpf 12/12/2024 10:[address] [facility] EPITHELIAL CELLS Moderate amount /lpf 12/12/2024 10:[address] [facility] BACTERIA, URINE Few(A) Negative /hpf 12/12/2024 10:[address] [facility] Urine URINE SPECIMEN OBTAINED BY CLEAN CATCH PROCEDURE / Unknown Non-Phlebotomy Collection / Unknown 12/12/2024 9:43 AM CDT 12/12/2024 9:43 AM CDT us Bryanna Smith APRN, CNP URINE ORDERABLES Final Result Performing Organization Address City/[facility] Co de Phone Number [facility] [address] [place] [address] * CULTURE, URINE (12/12/2024 9:43 AM CDT) CULTURE RESULTS GROUP B STREPTOCOCCUS 12/14/2024 8:58 AM CDT [facility] CULTURE RESULTS Also mixed growth of distal urethral contaminants 12/14/2024 8:58 AM CDT [facility] Urine URINE SPECIMEN OBTAINED BY CLEAN [...] GENERAL ORDERABLES Final Result Performing Organization Address [facility] de Phone Number [facility] [address] [place] [address], * (ABNORMAL) CBC WITH AUTO DIFFERENTIAL (12/12/2024 8:36 AM CDT) Only the most recent of8 resultswithin the time period is included. WBC 1.92(L) 4.00 - 12.00 10(3)/mcL 12/12/2024 9:06 AM CDT [facility] RBC 3.18(L) 3.80 - 5.30 10(6)/mcL 12/12/2024 9:06 [facility] HEMOGLOBIN (HGB) 8.8(L) 12.0 - 15.8 g/dL 12/12/2024 9:[address] [facility] HEMATOCRIT (HCT) 26.3(L) 36.0 - 47.0 % 12/12/2024 9:[address] [facility] MCV 82.7 82.0 - 96.0 fL 12/12/2024 9:06 AM T [facility] MCH 27.7 26.0 - 34.0 pg 12/12/2024 9:[address] [facility] MCHC 33.5 31.0 - 36.0 g/dL 12/12/2024 9:[address] [facility] PLATELET COUNT 94(L) 140 - 440 10(3)/mcL 12/12/2024 9:[address] [facility] RDW 14.8 11.8 - 15.5 % 12/12/2024 9:[address] [facility] MPV 8.7(L) 9.7 - 12.4 fL 12/12/2024 9:[address] [facility] NEUTROPHILS 70.3 47.0 - 73.0 % 12/12/2024 9:[address] [facility] LYMPHOCYTES 5.7(L) 18.0 - 42.0 % 12/12/2024 9:[address] [facility] MONOCYTES 14.6(H) 4.0 - 12.0 % 12/12/2024 9:[address] [facility] EOSINOPHILS 7.8(H) 0.0 - 5.0 % 12/12/2024 9:06 AM T [facility] BASOPHILS 1.6(H) 0.0 - 1.0 % 12/12/2024 9:[address] [facility] IMMATURE GRANULOCYTE 0.0 0.0 - 0.4 % 12/12/2024 9:[address] [facility] Comment:Immature Granulocyte s includes Metamyelocytes, Myelocytes, and Promyelocytes. ABSOLUTE NEUTROPHILS 1.35(L) 1.60 - 7.70 10(3)/mcL 12/12/2024 9:06 AM CDT [facility] ABSOLUTE LYMPHOCYTES 0.11(L) 1.30 - 3.20 10(3)/Health system 12/12/2024 9:06 AM CDT [facility] ABSOLUTE MONOCYTES 0.28 0.20 - 1.00 10(3)/Health system 12/12/2024 9:06 AM CDT [facility] ABSOLUTE EOSINOPHIL 0.15 0.00 - 0.40 10(3)/Health system 12/12/2024 9:06 AM CDT [facility] ABSOLUTE BASOPHILS 0.03 0.00 - 0.10 10(3)/Health system 12/12/2024 9:06 AM CDT [facility] ABSOLUTE IMMATURE GRANULOCYTE 0.00 0.00 - 0.03 10 (3) Health system. 12/12/2024 9:06 AM CDT [facility] NRBC PER 100 WBC 0 12/13/19 25 9:06 AM CDT [facility] RESULTS ARE CONSISTENT WITH PERIPHERAL SMEAR REVIEW Yes 12/12/2024 9:06 AM CDT [facility] Blood Venipuncture / Unknown 12/12/2024 8:36 AM CDT 12/12/2024 8:36 AM CDT Malvin Estrada MD HEMATOLOGY ORDERABLES Fi nal Result [facility] [address] [place] [address] * (ABNORMAL) MAGNESIUM (MG) (12/12/2024 8:36 AM CDT) Only the most recent of5 resultswithin the time period is included. MAGNESIUM 1.4(L) 1.6 - 2.6 mg/dL 12/12/2024 9:13 AM CDT [facility] Blood Venipuncture / Unknown 12/12/2024 8:36 AM CDT 12/12/2024 8:36 AM CDT Malvin Estrada MD CHEMISTRY ORDERABLES Fin al Result [facility] [address] [place] [address] * (ABNORMAL) CMP (COMPREHENSIVE METABOLIC PANEL) (12/12/2024 8:36 AM CDT) Only the most recent of8 resultswithin the time period is included. SODIUM 134(L) 136 - 145 mmol/L 12/12/2024 9:13 AM CDT [facility] POTASSIUM 3.9 3.5 - 5.1 mmol/L 12/12/2024 9:13 AM CDT [facility] CHLORIDE 100 98 - 107 mmol/L 12/12/2024 9:13 AM CDT [facility] CO2, VENOUS 24 22 - 30 mmol/L 12/12/2024 9:13 AM CDT [facility] ANION GAP 13.9 <18.0 mmol/L 12/12/2024 9:13 AM CDT [facility] GLUCOSE 104(H) 70 - 99 mg/dL 12/12/2024 9:13 AM CDT [facility] BUN 13 10 - 20 mg/dL 12/12/2024 9:13 AM CDT [facility] CREATININE, BLOOD 1.12(H) 0.60 - 1.00 mg/dL 12/12/2024 9:13 AM CDT [facility] BUN/CREATININE RATIO 12 12 - 20 ratio 12/12/2024 9:13 AM CDT [facility] TOTAL PROTEIN 6.3 6.0 - 8.0 g/dL 12/12/2024 9:13 AM CDT [facility] ALBUMIN 3.7 3.5 - 5.0 g/dL 12/12/2024 9:13 AM CDT [facility] A/G RATIO 1.4 1.0 - 2.2 12/12/2024 9:13 AM CDT [facility] CALCIUM 8.6(L) 8.7 - 10.5 mg/dL 12/12/2024 9:13 AM CDT [facility] T BILI 0.4 0.2 - 1.2 mg/dL 12/12/2024 9:13 AM CDT [facility] SGOT (AST) 17 <43 U/L 12/12/2024 9:13 AM CDT [facility] SGPT (ALT) <6 <56 U/L 12/12/2024 9:13 AM CDT [facility] ALKALINE PHOSPHATASE 36(L) 40 - 150 U/L 12/12/2024 9:13 AM CDT [facility] IS THE PATIENT REQUIRED TO BE FASTING? No 12/12/2024 9:13 AM CDT [facility] GFR, ESTIMATED 55(L) >=60 12/12/2024 9:13 AM CDT [facility] Comment: Creatinine Clearance is the preferred criteria for selecting drug dose adjustments in renally impaired patients. The GFR is provided as additional pertinent clinical information. GFR is reported in mL/min/1.73 sq m. Calculation based on the Chronic Kidney Disease Epidemiology Collaboration (CKD- EPI) equation refit without adjustment for race. GFR, EST. 59(L) >=60 12/12/2 025 9:13 AM CDT [facility] GFR, EST. NONAFRICAN 49(L) >=60 12/12/2024 9:13 AM CDT [facility] Blood Venipuncture / Unknown 12/12/2024 8:36 AM CDT 12/12/2024 8:36 AM CDT us Malvin Estrada MD CHEMISTRY ORDERABLES Fin al Result [facility] [address] [place] [address] * RAD ONC ARIA COURSE SUMMARY (12/07/2024 [...] ORDERABLES F inal Result Performing Organization Address City/State/[facility] Co de Phone Number [facility] [address] [place] [address] * RAD ONC ARIA SESSION SUMMARY (12/05/2024 [...] ORDERABLES F inal Result Performing Organization Address City/[facility] Co de Phone Number [facility] [address] [place] [address] * RAD ONC ARIA SESSION SUMMARY (12/02/2024 [...] ORDERABLES F inal Result Performing Organization Address City/[facility]/ZIP Co de Phone Number [facility] [address] [place] [address] * RAD ONC ARIA SESSION SUMMARY (12/01/2024 [...] ORDERABLES F inal Result Performing Organization Address City/State/[place] [facility] Co de Phone Number ARIA RO MODEL [address] [place] [address] * RAD ONC ARIA SESSION SUMMARY (11/30/2024 [...] ORDERABLES F inal Result Performing Organization Address [facility] de Phone Number ARIA RO MODEL [address] [place] [address] * RAD ONC ARIA SESSION SUMMARY (11/29/2024 [...] ORDERABLES F inal Result Performing Organization Address [facility] Co de Phone Number ARIA RO MODEL [address] [place] [address] * RAD ONC ARIA SESSION SUMMARY (11/28/2024 [...] ORDERABLES F inal Result Performing Organization Address [facility] Co de Phone Number ARIA RO MODEL [address] [place] [address] * RAD ONC ARIA SESSION SUMMARY (11/25/2024 [...] ORDERABLES F inal Result Performing Organization Address City/[facility]/ZIP Co de Phone Number ARIA RO MODEL [address] [place] [address] * C. DIFF BY PCR (11/25/2024 10:11 AM CDT) C DIFF TOXIN DNA BY PCR Negative Negative, Invalid 11/25/2024 11:19 AM CDT [facility] Other STOOL SPECIMEN / Unknown Non-Phlebotomy Collection / Unknown 11/25/2024 10:11 AM CDT 11/25/2024 10:11 AM CDT us Bryanna Smith STICKER HAND, TEXTILES PRINTER MICROBIOLOGY - GENERAL ORDERABLES Final Result [facility] [address] [place] [address] * RAD ONC ARIA SESSION SUMMARY (11/24/2024 [...] F inal Result ARIA RO MODEL [address] [place] [address] * RAD ONC ARIA SESSION SUMMARY (11/23/2024 [...] ORDERABLES F inal Result Performing Organization Address City/State/[facility] Co de Phone Number ARIA RO MODEL [address] [place] [address] * RAD ONC ARIA SESSION SUMMARY (11/22/2024 [...] ORDERABLES F inal Result Performing Organization Address City/[facility] Co de Phone Number ARIA RO MODEL [address] [place] [address] * RAD ONC ARIA SESSION SUMMARY (11/21/2024 [...] ORDERABLES F inal Result Performing Organization Address [facility] Co de Phone Number ARIA RO MODEL [address] [place] [address] * RAD ONC ARIA SESSION SUMMARY (11/18/2024 [...] ORDERABLES F inal Result Performing Organization Address City/State/[facility] Co de Phone Number ARIA RO MODEL [address] [place] [address] * RAD ONC ARIA SESSION SUMMARY (11/17/2024 [...] ORDERABLES F inal Result Performing Organization Address [facility] de Phone Number ARIA RO MODEL [address] [place] [address] * RAD ONC ARIA SESSION SUMMARY (11/16/2024 [...] ORDERABLES F inal Result Performing Organization Address [facility] Co de Phone Number ARIA RO MODEL [address] [place] [address] * RAD ONC ARIA SESSION SUMMARY (11/15/2024 [...] ORDERABLES F inal Result Performing Organization Address [facility] Co de Phone Number ARIA RO MODEL [address] [place] [address] * RAD ONC ARIA SESSION SUMMARY (11/14/2024 [...] F inal Result ARIA RO MODEL [address] [place] [address] * RAD ONC ARIA SESSION SUMMARY (11/11/2024 [...] ORDERABLES F inal Result Performing Organization Address [facility] de Phone Number ARIA RO MODEL [address] [place] [address] * RAD ONC ARIA SESSION SUMMARY (11/10/2024 [...] ORDERABLES F inal Result Performing Organization Address City/[facility] Co de Phone Number ARIA RO MODEL [address] [place] [address] * RAD ONC ARIA SESSION SUMMARY (11/09/2024 [...] ORDERABLES F inal Result Performing Organization Address City/[facility]/ZIP Co de Phone Number ARIA RO MODEL [address] [place] [address] * RAD ONC ARIA SESSION SUMMARY (11/08/2024 [...] F inal Result ARIA RO MODEL [address] [place] [address] * RAD ONC ARIA SESSION SUMMARY (11/04/2024 [...] ORDERABLES F inal Result Performing Organization Address [facility] Co de Phone Number ARIA RO MODEL [address] [place] [address] * RAD ONC ARIA SESSION SUMMARY (11/03/2024 [...] ORDERABLES F inal Result Performing Organization Address [facility] Co de Phone Number ARIA RO MODEL [address] [place] [address] * RAD ONC ARIA SESSION SUMMARY (11/02/2024 [...] ORDERABLES F inal Result Performing Organization Address City/State/[facility] Co de Phone Number ARIA RO MODEL [address] [place] [address] * RAD ONC ARIA SESSION SUMMARY (11/01/2024 [...] ORDERABLES F inal Result Performing Organization Address [facility] Co de Phone Number ARIA RO MODEL [address] [place] [address] * RAD ONC ARIA SESSION SUMMARY (10/31/2024 [...] ORDERABLES F inal Result Performing Organization Address [facility] Co de Phone Number ARIA RO MODEL [address] [place] [address] * COLONOSCOPY (10/12/2024 12:00 AM CDT) 10/12/2024 us Provider Scan PROCEDURE/MINOR SURGICAL ORDERAB LES Final Result Performing Organization Address City/[facility] Co de Phone Number SCAN from Last 3 Months or Most Recently Relevant to Health Maintenance Insurance [facility] Care Teams Oil Field Worker Relationship Specialty Start Date End Date Diann Crain, STICKER HAND, TEXTILES PRINTER [address] [place] [address] PCP - General Advanced Practice Nurse 10/10/24 Antonia Rodriguez MD [address] [address] Consulting Physician Gynecologic Oncology 10/11/24 Malvin Estrada MD [address] [place] [address] Consulting Physician Medical Oncology 10/11/24 Taqueria Gresham MD [address] [place] [address] Consulting Physician Radiation Oncology 10/11/24 Montana Lakhani MD [address] [place] [address] Consulting Physician Radiation Oncology 10/12/24
--- OUTSIDE RECORDS SUMMARY | 2025-01-20 12:16 | XMS_ITS | Encounter Summary ---
Author Organization [facility] Address [address] [facility] [place] [address] Phone Care Team Providers Care Lithographic Plate Maker Apprentice Name Role Phone Diann Crain APRN, SPOTTER Primary Care Provi scot Antonia Rodriguez MD Unavailable [phone] Malvin Estrada MD Unavailable Taqueria Gresham MD Unavailable Montana Lakhani MD Unavailable [phone] Encounter Details Date Type Department Care Team (Late st Contact Info) Description 01/20/2025 Telephone [facility] Oncology Services [address] [place] [address] Malvin Estrada MD [address] [place] [address] Social History Tobacco Use Types Packs/Day Years [...] 11:02 AM CDT Patient called speaking to order control clerk blood bank stating she would not be in for [...] Description 03/14/2025 9:30 AM CDT Office Visit [facility] Oncology Services [address] [place] [address] Barry Martin MD [address] [place] [address] Discharge Disposition: Discharged to home or Selfcare documented as of this encounter Visit Diagnoses Not on filedocumented in this encounter Care Teams Lithographic Plate Maker Apprentice Relationship Specialty Start Date End Date Diann Crain, ALLIED HEALTH TEACHER, SPOTTER [address] [place] [address] PCP - General Advanced Practice Nurse 10/10/24 Antonia Rodriguez MD [address] [address] Consulting Physician Gynecologic Oncology 10/11/24 Malvin Estrada MD [address] [place] [address] Consulting Physician Medical Oncology 10/11/24 Taqueria Gresham MD [address] [place] [address] Consulting Physician Radiation Oncology 10/11/24 Montana Lakhani MD [address] [place] [address] Consulting Physician Radiation Oncology 10/12/24 documented as of this encounter
--- OUTSIDE RECORDS SUMMARY | 2025-01-20 12:16 | XMS_ITS | Clinical Summary ---
Author Organization [facility] Address [address] [facility] [place] [address] Care Team Providers Care Project Control Officer Name Role Phone Diann Crain SUPERINTENDENT OVERHEAD DISTRIBUTION-BANDER AND CELLOPHANER MACHINE Primary Care Provid er Source Comments [facility],non-owned Affiliates and Associated Physician Practices is amultiple site organization consisting of ambulatory clinics and hospital sitesin [place], [place], [place] and [place]. This disclosure is being madepursuant to the Care Everywhere program and may not contain all information available regarding this patient. Last updated 18.[facility] Allergies Active Allergy Reactions Criticality [...] Office Visit [facility] - Rad/Onc [address] [place] [phone] Montana Lakhani MD 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 (HCC) (Primary Dx) 01/10/2025 7:22 AM CDT Anesthesia Event [facility] [address] [place] [address] Wally Serrano MD Levin, Vitaly F, MD 01/10/2025 7:15 AM CDT - 01/10/2025 8:24 AM CDT Surgery [facility] [address] [place] [address] Saran Troy MD TANDEM AND RING PLACEMENT 01/10/2025 5:32 AM CDT - 01/10/2025 11:53 AM CDT Hospital Encounter [facility] [address] [place] [address] Saran Troy MD Surgery General Discharge Disposition: Home or Self Care 01/10/2025 Travel 01/05/2025 9:30 AM CDT Office Visit [facility] - Rad/Onc [address] [place] [phone] Montana Lakhani MD 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 (HCC) (Primary Dx) 01/05/2025 7:25 AM CDT Anesthesia Event [facility] [address] [place] [address] Milly Rausch MD Levin, Vitaly F, MD 01/05/2025 7:15 AM CDT - 01/05/2025 8:45 AM CDT Surgery [facility] [address] [place] [address] Antonia Rodriguez MD PLACEMENT OF TANDEM AND RING 01/05/2025 5:10 AM CDT - 01/05/2025 12:21 PM CDT Hospital Encounter [facility] [address] [place] [address] Antonia Rodriguez MD Surgery General Discharge Disposition: Home or Self Care 01/05/2025 Travel 01/03/2025 9:30 AM CDT Office Visit [facility] - Rad/Onc [address] [place] [phone] Montana Lakhani MD 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 (HCC) (Primary Dx) 01/03/2025 7:21 AM CDT Anesthesia Event [facility] [address] [place] [address] Milly Rausch MD Will, Margaret HKISHOREN-EQUIPMENT OPERATOR/LABORER/SUPERVISOR 01/03/2025 7:15 AM CDT - 01/03/2025 8:24 AM CDT Surgery [facility] [address] [place] [address] Saran Troy MD PLACEMENT OF TANDEM AND RING 01/03/2025 5:26 AM CDT - 01/03/2025 12:20 PM CDT Hospital Encounter [facility] [address] [place] [address] Saran Troy MD Surgery General Discharge Disposition: Home or Self Care 12/27/2024 9:30 AM CDT Office Visit [facility] - Rad/Onc [address] [place] [phone] Montana Lakhani MD 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 (HCC) (Primary Dx) 12/27/2024 7:23 AM CDT Anesthesia Event [facility] [address] [place] [address] Milly Rausch MD 12/27/2024 7:15 AM CDT - 12/27/2024 8:15 AM CDT Surgery [facility] [address] [place] [address] Montana Villa MD PLACEMENT OF TANDEM AND RINGS 12/27/2024 5:50 AM CDT - 12/27/2024 12:45 PM CDT Hospital Encounter [facility] [address] [place] [address] Montana Villa MD Surgery General Discharge Disposition: Home or Self Care 12/27/2024 Travel 12/26/2024 Travel 12/22/2024 9:30 AM CDT Office Visit [facility] - Rad[facility]Onc [address] [place] [phone] Montana Lakhani MD 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 (HCC) (Primary Dx) 12/22/2024 7:21 AM CDT Anesthesia Event [facility] [address] [place] [address] Jay Jones MD Hogan, Steven 12/22/2024 7:15 AM CDT - 12/22/2024 8:21 AM CDT Surgery [facility] [address] [place] [address] Lamont Cueva MD PLACEMENT OF TANDEM AND RING 12/22/2024 5:42 AM CDT - 12/22/2024 12:45 PM CDT Hospital Encounter [facility] [address] [place] [address] Lamont Cueva MD Surgery General Discharge Disposition: Home or Self Care 12/22/2024 Travel 12/21/2024 Travel 12/21/2024 Telephone [facility] - TECHNICAL AGRONOMIST [address] [facility] [address] [address] [place] [address] Antonia Rodriguez MD Question 12/20/2024 Telephone [facility] - Rad[facility]Onc [address] [place] [phone] Argentina Rosenthal RN Appointment 12/20/2024 Travel 12/19/2024 Telephone [facility] - TECHNICAL AGRONOMIST [address] [facility] [place] [phone] Montana Villa MD Question 12/13/2024 Telephone [facility] - Rad[facility]Onc [address] [place] [phone] Argentina Rosenthal, RN Appointment 12/12/2024 Travel 12/02/2024 Telephone [facility] - Rad[facility]Onc [address] [place] [phone] Argentina Rosenthal, RN Appointment 11/16/2024 1:00 PM CDT - 12/18/2024 11:59 PM CDT Hospital Encounter [facility] - Radiation Oncology [address] [place] [address] Montana Lakhani MD Discharge Disposition: Home or Self Care 11/16/2024 1:00 PM CDT Office Visit [facility] - Rad/Onc [address] [place] [phone] Montana Lakhani MD 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 (HCC) (Primary Dx) 11/16/2024 Travel 11/04/2024 Travel 10/26/2024 Telephone [facility] - Rad/Onc [address] [place] [phone] Argentina Rosenthal, RN Follow-up 10/26/2024 Orders Only [facility] - TECHNICAL AGRONOMIST [address] [facility] [address] [place] [address] Antonia Rodriguez MD Malignant neoplasm of cervix, unspecified site (HCC) 10/26/2024 Telephone [facility] - Rad/Onc [address] [place] [phone] Argentina Rosenthal, RN Appointment from [...] on file Legal 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 Gender Identity Not on file [...] Visit [facility] - Rad/Onc [address] [place] [phone] Montana Lakhani MD [address] [place] [address] Health Maintenance Due Date Last [...] MASK AIRWAY Routine 01/10/2025 7:34 AM CDT IA INSERT UTERI TANDEMS/OVOIDS 01/10/2025 7:08 AM CDT Diagnosis unknown GLUCOSE - POINT OF CARE Routine 01/10/2025 6:02 AM CDT CARDIAC RHYTHM STRIP ORDER 01/09/2025 6:21 PM CDT CARDIAC RHYTHM STRIP ORDER 01/05/2025 4:23 PM CDT GLUCOSE - POINT OF CARE Routine 01/05/2025 11:58 AM CDT GLUCOSE - POINT OF CARE Routine 01/05/2025 8:00 AM CDT IA INSERT UTERI TANDEMS/OVOIDS 01/05/2025 7:10 AM CDT [...] MASK AIRWAY Routine 01/03/2025 7:37 AM CDT IA INSERT UTERI TANDEMS/OVOIDS 01/03/2025 6:35 AM CDT [...] OF CARE Routine 12/27/2024 6:48 AM CDT IA INSERT UTERI TANDEMS/OVOIDS 12/27/2024 6:45 AM CDT Diagnosis unknown CARDIAC RHYTHM STRIP ORDER 12/26/2024 6:38 PM CDT RAD ONC ARIA SESSION SUMMARY Routine 12/22/2024 11:27 AM CDT GLUCOSE - POINT OF CARE Routine 12/22/2024 8:10 AM CDT CULTURE URINE STAT 12/22/2024 7:44 AM CDT Diagnosis unknown ENDOTRACHEAL TUBE NOTE Routine 12/22/2024 7:38 AM CDT IA INSERT UTERI TANDEMS/OVOIDS 12/22/2024 7:06 AM CDT [...] Summary (01/10/2025 10:42 AM CDT) Course ID [id number] xTnO RAD ONC TREATMENT Course First Treatment [...] Summary (01/10/2025 10:42 AM CDT) Course ID [id number] xTnO RAD ONC TREATMENT Course First Treatment [...] CARE ORDERABLES Final Result Performing Organization Address City/[facility]/ZIP Co de Phone Number [facility] [address] [place] [address] * LARYNGEAL MASK AIRWAY (01/10/2025 7:34 AM [...] Summary (01/03/2025 11:22 AM CDT) Course ID [id number] xTnO RAD ONC TREATMENT Course First Treatment [...] Summary (01/03/2025 11:21 AM CDT) Course ID [id number] xTnO RAD ONC TREATMENT Course First Treatment [...] Performing Organization Address City/[facility] Co de Phone Number RAD ONC TREATMENT * CULTURE URINE (01/03/2025 7:52 AM CDT) Only the most recent of2 resultswithin the time period is included. Culture Urine No growth (<100 CFU/mL) SALOMON 01/04/2025 3:15 PM CDT [facility] MICROBIOLOGY Urine URINE SPECIMEN COLLECTION, CATHETERIZED / Unknown Collection / Unknown 01/03/2025 7:52 AM CDT 01/03/2025 8:41 AM CDT Comment:Pre-op diagnosis: Diagnosis unknown [R69] Saran Troy MD LAB - MICROBIOLOGY ORDERABLES Final Result Performing Organization Address City/[facility]/ZIP Co de Phone Number [facility] MICROBIOLOGY [address] [place] [address], [facility] [phone] * LARYNGEAL MASK AIRWAY (01/03/2025 7:37 AM CDT) Narrative Shelby Garcia APRN-EQUIPMENT OPERATOR/LABORER/SUPERVISOR - 01/03/2025 7:37 AM CDShelby Diaz APRN-CRNA [...] l Result [facility] [address] [place] [address] * Rad Onc Aria Session Summary (12/22/2024 11:27 AM CDT) Course ID [id number] xTnO RAD ONC TREATMENT Course First Treatment Date 12/22/2024 11:26 AM RAD ONC TREATMENT Plan ID Cervix 3000 RAD ONC TREATMENT Plan Fractions Treated to Date 1 RAD ONC TREATMENT Plan Total Fractions Prescribed 5 RAD ONC TREATMENT Plan Total Prescribed Dose 3000 cGy RAD ONC TREATMENT 12/22/2024 11:2 7 AM CDT Result [facility] Provider Unknown RADIATION ONCOLOGY ORDERABLES F inal Result Performing Organization Address City/[facility] Co de Phone Number RAD ONC TREATMENT * ETT LINE PERFORMABLE (12/22/2024 7:38 AM CDT) Narrative José Antonio Child APRN-CRNA - 12/22/2024 7:38 AM CDT José Antonio Child APRN-CRNA 12/22/2024 7:40 AM Endotracheal Tube Placement: Patient Location: OR. Intubation Event Date/Time: 12/22/2024 7:27 AM Procedure: intubation ([id number]) Procedure Section: Sedation: under general anesthesia. Indications [...] Last 3 Months Insurance [employer] Care Teams Project Control Officer Relationship Specialty Start Date End Date Diann Crain, SUPERINTENDENT OVERHEAD DISTRIBUTION-BANDER AND CELLOPHANER MACHINE [address] [place] [address] PCP - General Nurse Practitioner Family 09/15/24
--- NOTE | 2025-01-20 12:28 | ECG_ITS ---
Test Date: 2025-01-20 12:39:35 Measurements Intervals [place] Rate: 75 P: 42 TN: 200 QRS: -35 QRSD: 93 T: 39 QT: 384 QTc: 430 Interpretive Statements SINUS RHYTHM BORDERLINE AV CONDUCTION DELAY DELAYED PRECORDIAL R/S TRANSITION INFERIOR INFARCT, AGE INDETERMINATE ABNORMAL ECG Compared to ECG 12/19/2024 11:13:06 No significant changes Electronically Signed On 01-20-2025 12:42:14 CDT by Shahbaz Matta D.O.
[2025-01-20] MEDS: SODIUM CHLORIDE 0.9% IV 1,000 ML 999 ML IV CONT (12:40)
[2025-01-20] MEDS: ONDANSETRON INJ 4 MG/2 ML VIAL IV PUSH (12:44)
[2025-01-20 12:56] LABS: Hematocrit 26.4 % (35.0-49.0); Hemoglobin 8.9 g/dL (12.0-15.0); Immature Granulocyte Percent A 0.8 % (0.0-0.0); Lymphocytes Absolute Auto 0.32 K/mm3 (1.10-4.50); Mean Corpuscular HGB Conc 33.7 g/dL (32-36); Mean Corpuscular Hemoglobin 30.2 pg (27.0-31.0); Mean Corpuscular Volume 89.5 fL (78.0-102.0); Nucleated Red Blood Cells Absolute Auto 0.00 K/mm3 (0.00-0.00); Nucleated Red Blood Cells Perc 0.0 % (0-0.0); Platelet Count Result 160 K/mm3 (150-420); Red Blood Count 2.95 M/mm3 (4.20-5.40); White Blood Count 4.0 K/mm3 (4.8-10.8)
[2025-01-20 13:01] LABS: Alanine Aminotransferase 9 U/L (6-35); Albumin Level 4.0 g/dL (3.5-5.1); Alkaline Phosphatase 40 U/L (38-126); Anion Gap 9 mmol/L (4-12); Aspartate Amino Transferase 17 U/L (14-36); Bilirubin,Total 1.0 mg/dL (0.2-1.3); Blood Urea Nitrogen 19 mg/dL (7-17); Calcium 9.6 mg/dL (8.4-10.2); Carbon Dioxide 23 mmol/L (22-30); Chloride 101 mmol/L (98-107); Estimated CRCL calculation 38 ml/min; Estimated Glomerular Filt Rate 40; Glucose 141 mg/dL (65-110); Osmolality Calculated 280 mOsm/kg (285-295); Potassium 4.5 mmol/L (3.4-5.0); Sodium 133 mmol/L (137-145); Total Protein 6.4 g/dL (6.3-8.2)
[2025-01-20 13:13] LABS: Troponin I < 0.012 ng/mL (0.000-0.034)
[2025-01-20 13:54] LABS: Add Urine Microscopic? YES; Appearance Urine Clear (Clear); Glucose Urine UA Negative (Negative); Leukocyte Esterase Ur Trace LEU/UL (Negative); Nitrate Urine Negative (Negative); Specific Grav Ur 1.015 (1.010-1.020)
[2025-01-20] MEDS: CIPROFLOXACIN 400 MG/D5W 200ML 200 ML 200 MG IVPB (14:23)
[2025-01-20 15:45] LABS: Magnesium 1.4 mg/dL (1.6-2.3)
[2025-01-20] MEDS: MAGNESIUM SULF 2 GM/WATER 50ML 2 GM/50 ML BAG IVPB (16:40)
[2025-01-20] MEDS: PROMETHAZINE HCL 25 MG/ML AMPUL 12.5 MG IV PUSH (16:48)
[2025-01-20] MEDS: MAGNESIUM OXIDE 400 MG TABLET BY MOUTH (18:33)
--- NOTE | 2025-01-20 18:36 | ADMGEN ---
This patient, Ida Grande, was admitted to 2nd Floor Room 209-1. @1600. Patient/family oriented to hospital policies and general routines including ID bracelet, bed and alarms, visiting hours, pain management, procedures, bathroom and other care routines, personal items, smoking policy, room service/diet, and visiting hours. claims she has been n/v with her chemo and radiation. unable to hold food down. claims no loose stools for several days. Information on how to activate the Rapid Response Team has been discussed. Patient/Family are encouraged to report perceived risks to care and to ask questions if they do not understand what they are told or what they should do.
[2025-01-20] MEDS: levoFLOXacin 750 MG/D5W 150 ML 750 MG/150 ML BAG 100 MG IVPB (20:28)
[2025-01-20] MEDS: PROMETHAZINE HCL 12.5 MG TABLET PO (20:31)
[2025-01-20] MEDS: INSULIN GLARGINE (*BKC) 1,000 UNITS/10 ML VIAL 10 UNITS SUB-Q (21:36)
--- NOTE | 2025-01-20 21:59 | PC.NURSE ---
Was ambulating patient to bathroom, when she became weak and her knees started to buckle. Medical Reviewer able to keep patient on feet by bracing against patient and holding her up, patient having difficulty moving legs without assist, able to make it the few steps to the toilet. Called for assist. Patient remains A&Ox4 through episode. Able to stand and pull down pants to urinate, then transferred back to bed with w/c and SBA. VS: 98.0, 78, 17, 99% on RA, 134/61. Patient denies any pain or discomfort at this time. Patient had previously taken Phenergan 12.5mg at HS for intermittent nausea, which can have a sedating effect. Patient agrees to use BSC for next toileting, bed alarm on.
[2025-01-21] VITALS: BP 146/69; PULSE 69; RESP 16; TEMP 37.1; O2SAT 99
[2025-01-21 04:00] VITALS: PULSE 68; O2SAT 99
[2025-01-21 06:01] LABS: Alanine Aminotransferase 8 U/L (6-35); Albumin Level 3.6 g/dL (3.5-5.1); Alkaline Phosphatase 35 U/L (38-126); Anion Gap 6 mmol/L (4-12); Aspartate Amino Transferase 16 U/L (14-36); Bilirubin,Total 0.9 mg/dL (0.2-1.3); Blood Urea Nitrogen 16 mg/dL (7-17); Calcium 9.1 mg/dL (8.4-10.2); Carbon Dioxide 23 mmol/L (22-30); Chloride 104 mmol/L (98-107); Estimated CRCL calculation 41 ml/min; Estimated Glomerular Filt Rate 44; Glucose 108 mg/dL (65-110); Magnesium 1.8 mg/dL (1.6-2.3); Osmolality Calculated 278 mOsm/kg (285-295); Potassium 4.1 mmol/L (3.4-5.0); Sodium 133 mmol/L (137-145); Total Protein 5.9 g/dL (6.3-8.2)
[2025-01-21 06:41] LABS: Hematocrit 23.5 % (35.0-49.0); Hemoglobin 8.0 g/dL (12.0-15.0); Mean Corpuscular HGB Conc 34.0 g/dL (32-36); Mean Corpuscular Hemoglobin 30.5 pg (27.0-31.0); Mean Corpuscular Volume 89.7 fL (78.0-102.0); Platelet Count Result 141 K/mm3 (150-420); Red Blood Count 2.62 M/mm3 (4.20-5.40); White Blood Count 2.6 K/mm3 (4.8-10.8)
[2025-01-21 06:49] LABS: Band Neutrophils Percent 0 % (0-6); Basophils Absolute Manual 0.00 K/mm3 (0-0.1); Basophils Percent Manual 0 % (0-1); Eosinophils Absolute Manual 0.05 K/mm3 (0.02-0.50); Eosinophils Percent Manual 2 % (1-6); Lymphocytes Absolute Manual 0.26 K/mm3 (1.1-4.5); Lymphocytes Percent Manual 10 % (18-44); Monocytes Absolute Manual 0.26 K/mm3 (0.1-0.90); Monocytes Percent Manual 10 % (3-9); Neutrophils Absolute Manual 2.02 K/mm3 (1.3-6.7); Neutrophils Percent Manual 78 % (46-73); Schistocytes None Seen; Total Cells Counted 100
[2025-01-21 08:00] VITALS: BP 144/73; PULSE 68; PULSE 75; RESP 17; TEMP 36.8; O2SAT 99
--- NOTE | 2025-01-21 08:55 | P.HP_ITS ---
H&P: HPI History of Present Illness Date/Time: 01/21/25 08:55 Chief Complaint: nausea/vomiting/pyelonephritis Narrative: This is a 64 year old female with a history of cervical cancer beginning treatment in October. She began radiation and chemotherapy at that time, with extra fluids administered during the week for nausea and vomiting. Her last chemotherapy treatment was on December 12. In December, she started internal radiation at [facility], requiring anesthesia and Nicolas catheter placement for each of five treatments, with the last treatment on January 10. The first two weeks of internal radiation were complicated by a urinary tract infection (UTI), treated with antibiotics. Since her last treatment on January 10, she has experienced persistent nausea, vomiting, and diarrhea. The diarrhea was part icularly problematic in the mornings after consuming protein shakes or Glucerna, which were recommended for healing, as these drinks went right through her. Diarrhea improved significantly after discontinuing these drinks and starting two Imodium doses in the morning, with additional doses for loose stools, as directed by the cancer center. However, she continued to have difficulty keeping any food down, vomiting most items consumed, including fruit, crackers, and pretzels. She had been taking Zofran for nausea, which was not effective. Compazine was subsequently added and prescribed to be alternated with Zofran. The patient reported that yesterday was the first day she had taken both, and she had not thrown up since 8 PM the previous night, indicating significant improvement. She received two bags of IV fluids at the cancer center on Thursday, but vomiting recurred approximately an hour after she left. She received additional fluids upon her current admission in the ER. She reports severe acid reflux and heartburn. She has a history of diabetes, managed with metformin (held during admission) and insulin (sliding scale and 15 units Lantus nightly). She monitors her glucose levels closely with a continuous monitor (Kim), with instructions to administer fast-acting insulin for levels exceeding 150 mg/dL, in addition to her nightly 15 units of insulin. She reports no significant pain, fever, or chills, but feels cold frequently. She denies difficulty passing urine currently. She experienced a near-syncope incident last night, where she almost fell to the floor. While she did not feel lightheaded or dizzy when she initially stood up, she became disoriented partway to the restroom. Review of Systems Review of Systems: All systems reviewed & are unremarkable except as noted in HPI and below PMFSH Past Medical History Medical History Dizziness on standing Cervical osteoarthritis Abnormal vaginal bleeding in postmenopausal patient Cervical cancer Cellulitis of left foot Bacteremia Osteoarthritis of left shoulder Uncontrolled diabetes mellitus Diabetic infection of left foot Diabetic foot ulcer Migraines History of shingles History of chicken pox Surgical History Surgical History Foot abscess, left 04/18/24 Complex incision and drainage of diabetic left foot abscess. Dr. Dominique History of incision and drainage 04/18/24 Complex incision and drainage of diabetic left foot abscess. Dr. Dominique H/O oral surgery Social History Social History Smoking status: Never smoker Tobacco type: cigarettes Second hand tobacco smoke exposure: No Alcohol intake: never Alcohol use details: Allergy to beer Substance use: never Substance use type: does not use Do You Feel Safe in your Home?: Yes Lack of Transportation: No Lack of Food: Never True Current Housing: I Have Housing Concerned About Future Housing: No Difficulty Paying Gas/Electric Bills: No Difficulty Paying for Meds: No Currently Unemployed: No Education: Trade/Vocational Certificate Difficulty w/ Childcare or Family Care: No Living arrangements: alone Spiritual care concerns: No Meds Home Medications and Allergies Home Medications ?Medication ?Instructions ?Recorded ?Confirmed ?Type blood-glucose meter #1 ea 04/25/24 01/20/25 Rx insulin glargine 100 unit/mL (3 15 unit (0.15 mL) subcut QPM #15 mL 04/25/24 01/20/25 Rx mL) subcutaneous pen (Lantus Solostar U-100 Insulin) lancets 28 gauge (Acti-Estuardo #100 ea 05/23/24 01/20/25 Rx Lancets) metformin 500 mg tablet,extended 500 mg PO BID #90 tabs 05/23/24 01/20/25 Rx release 24 hr blood sugar diagnostic (Blood #50 ea 07/04/24 01/20/25 Rx Glucose Test strips) insulin lispro 100 unit/mL See Rx Instructions subcut TID #15 07/14/24 01/20/25 Rx subcutaneous pen mL lancets 30 gauge (On-The-Go #100 ea 09/22/24 01/20/25 Rx Lancets) blood-glucose,clinical account specialist,cont #1 ea 09/28/24 01/20/25 Rx (FreeStyle Kim 3 [place]) blood-glucose sensor (FreeStyle #6 ea 09/29/24 01/20/25 Rx Kim 3 Sensor device) ondansetron 4 mg disintegrating 4 mg PO Q8H PRN nausea and 10/14/24 01/20/25 Rx tablet vomiting #30 tabs magnesium oxide 400 mg (241.3 mg See Rx Instructions .Route 11/01/24 01/20/25 Rx magnesium) tablet .COMPLEX #120 tabs ondansetron 4 mg disintegrating 4 mg PO DAILY 3 days #10 tabs 01/17/25 01/20/25 Rx tablet prochlorperazine maleate 10 mg 10 mg PO Q6H PRN nausea and 01/20/25 01/20/25 History tablet (Compazine) vomiting Allergies Allergy/AdvReac Type Severity Reaction Status Date / Time Yeast Allergy Severe Anaphylactic Verified 01/17/25 15:06 Shock amoxicillin Allergy Intermediate unknown Verified 01/17/25 15:06 erythromycin base Allergy Intermediate unknown Verified 01/17/25 15:06 Sulfa (Sulfonamide Allergy Intermediate Unknown Verified 01/17/25 15:06 Antibiotics) Penicillins Allergy Unknown Anaphylaxis Verified 01/17/25 15:06 Vital Signs Vital Signs - 24 hr 01/20/25 11:40 01/20/25 13:01 01/20/25 13:02 Temperature 36.4 C Pulse Rate 82 84 Respiratory Rate 18 18 Blood Pressure 145/81 H 176/80 H Pulse Oximetry 100 100 100 Oxygen Delivery Room Air Room Air 01/20/25 13:15 01/20/25 13:16 01/20/25 13:30 Temperature Pulse Rate Respiratory Rate Blood Pressure 178/75 H Pulse Oximetry 97 95 100 Oxygen Delivery 01/20/25 13:31 01/20/25 13:32 01/20/25 13:47 Temperature Pulse Rate 83 Respiratory Rate 18 Blood Pressure 178/85 H Pulse Oximetry 99 98 99 Oxygen Delivery Room Air 01/20/25 13:49 01/20/25 14:00 01/20/25 14:15 Temperature Pulse Rate 83 Respiratory Rate 20 Blood Pressure 181/83 H Pulse Oximetry 100 100 100 Oxygen Delivery Room Air 01/20/25 14:16 01/20/25 14:30 01/20/25 14:31 Temperature Pulse Rate Respiratory Rate Blood Pressure 146/84 H Pulse Oximetry 99 99 99 Oxygen Delivery 01/20/25 14:45 01/20/25 14:46 01/20/25 15:00 Temperature Pulse Rate Respiratory Rate Blood Pressure 167/79 H Pulse Oximetry 100 97 98 Oxygen Delivery 01/20/25 15:01 01/20/25 15:15 01/20/25 15:16 Temperature Pulse Rate Respiratory Rate Blood Pressure 170/82 H 161/78 H Pulse Oximetry 98 100 99 Oxygen Delivery 01/20/25 15:30 01/20/25 15:31 01/20/25 15:45 Temperature Pulse Rate Respiratory Rate Blood Pressure 170/83 H Pulse Oximetry 100 100 99 Oxygen Delivery 01/20/25 15:46 01/20/25 20:00 01/20/25 20:00 Temperature Pulse Rate 84 84 76 Respiratory Rate 20 20 Blood Pressure 171/84 H Pulse Oximetry 100 100 Oxygen Delivery Room Air Room Air 01/20/25 20:00 01/20/25 22:13 01/21/25 00:00 Temperature 36.7 C Pulse Rate 78 69 Respiratory Rate 17 Blood Pressure 134/61 Pulse Oximetry 100 99 Oxygen Delivery Room Air Room Air 01/21/25 00:00 01/21/25 04:00 01/21/25 04:00 Temperature 37.1 C Pulse Rate 69 68 68 Respiratory Rate 16 Blood Pressure 146/69 H Pulse Oximetry 99 99 Oxygen Delivery Room Air Room Air 01/21/25 08:00 Temperature 36.8 C Pulse Rate 75 Respiratory Rate 17 Blood Pressure 144/73 H Pulse Oximetry 99 Oxygen Delivery Room Air Exam Narrative: Chronically ill appearing and pale, no acute distress noted Lungs clear, no dyspnea/labored breathing Rate and rhythm regular No abdominal tenderness, normal bowel sounds Awake, alert and oriented, moves all extremities well H&P: Results Labs Labs: Short CBC 01/20/25 01/21/25 Range/Units 12:46 05:11 WBC 4.0 L 2.6 L (4.8-10.8) K/mm3 Hgb 8.9 L 8.0 L (12.0-15.0) g/dL Hct 26.4 L 23.5 L (35.0-49.0) % Plt Count 160 141 L (150-420) K/mm3 BMP 01/20/25 01/21/25 12:46 05:11 Sodium 133 L 133 L Potassium 4.5 4.1 Chloride 101 104 Carbon Dioxide 23 23 BUN 19 H D 16 Creatinine 1.34 H 1.24 H Glucose 141 H 108 Calcium 9.6 9.1 Cardiac Enzymes 01/20/25 Range/Units 12:46 Troponin I < 0.012 (0.000-0.034) ng/mL Liver Function 01/20/25 01/21/25 Range/Units 12:46 05:11 Total Bilirubin 1.0 0.9 (0.2-1.3) mg/dL AST 17 16 (14-36) U/L ALT 9 8 (6-35) U/L Alkaline Phosphatase 40 35 L (38-126) U/L Albumin 4.0 3.6 (3.5-5.1) g/dL Urine 01/20/25 Range/Units 13:40 Urine Color Light yellow (Yellow) Urine Appearance Clear (Clear) Urine pH 7.0 (5.0-8.0) Ur Specific [place] 1.015 (1.010-1.020) Urine Protein 2+ H (Negative) Urine Glucose (UA) Negative (Negative) Pulse Oximetry SpO2 results: 99% on room air Attestation: I personally reviewed and interpreted this pulse oximetry as follows: Interpretation: No need for supplemental oxygenation at this time ECG Attestation: I personally reviewed and interpreted this ECG as follows: ECG completion date: 01/20/25 ECG completion time: 12:39 Prior ECG tracings: available for review Interpretation: sinus rhythm rate 75, MT 200, QRSd 93, QTC 430, QRS axis -35, no STEMI or significant change from prior EKG Imaging CT scan - abdomen: My impression: Air in bladder, left hydroureter without evident obstruction, no bowel obstruction Radiologist's impression: EXAMINATION: CT abdomen pelvis wo con DATE: 01/20/2025 13:03 INDICATION: Nausea, vomiting and diarrhea TECHNIQUE: Computed tomography (CT) of the abdomen and pelvis was performed without intravenous contrast. The dose-length product was 254.24 mGy-cm. Automated exposure control and iterative reconstruction technique were employed. COMPARISON: None. FINDINGS: Lung bases are unremarkable. No significant pleural or pericardial effusion. Small fat-containing umbilical hernia. There is left hydronephrosis. Bladder wall is thickened and contains gas nondependent, suspicious for cystitis. No obstructing stone identified. The liver, spleen, pancreas, right kidney are within normal limits. There is osteoarthritis of the hips. Gallbladder wall appears mildly thickened and contains high density material dependently, possibly stones or vicarious excretion of contrast. IMPRESSION: 1. Mild left hydroureteronephrosis with urothelial thickening and no diffuse bladder wall thickening and intraluminal gas. Findings suspicious for cystitis with possible ascending urinary tract infection. Reviewed, dictated and finalized at location A. Assessment and Plan Assessment and plan (1) Emphysematous cystitis: Code(s): N30.80 - Other cystitis without hematuria Status: Acute Assessment and Plan: -Air in bladder, last Nicolas catheter was 12 days ago, no other recent instrumentation -CT findings of left hydroureter and hydronephrosis with thickening suspicious for ascending UTI -No clear obstruction noted -UA with some signs of potential infection -Allergy to PCN and sulfa so treat with Levaquin (with renal adjustment) pending cultures -Blood cultures in process -Ordered bladder scan post void x 2 (2) Hydroureter on left: Code(s): N13.4 - Hydroureter Status: Acute Assessment and Plan: See above (3) Pyelonephritis of left kidney: Code(s): N12 - Tubulo-interstitial nephritis, not specified as acute or chronic Status: Acute Assessment and Plan: See above (4) Nausea vomiting and diarrhea: Code(s): R11.2 - Nausea with vomiting, unspecified; R19.7 - Diarrhea, unspecified Status: Acute Assessment and Plan: -Alternating nausea/vomiting or diarrhea causing decreased oral intake and frequent dehydration -Patient getting IV fluids twice a week or more at Cancer Center -Zofran and Promethazine available for treatment (5) Cervical cancer: Qualifiers: Malignant neoplasm of cervix location: unspecified location Qualified Code(s): C53.9 - Malignant neoplasm of cervix uteri, unspecified Code(s): C53.9 - Malignant neoplasm of cervix uteri, unspecified Status: Acute Assessment and Plan: -S/P chemo and radiation including 5 dose of internal radiation, last chemo end of November and last internal radiation end of December 2024 (6) CKD (chronic kidney disease): Qualifiers: Chronic kidney disease stage: unspecified stage Qualified Code(s): N18.9 - Chronic kidney disease, unspecified Code(s): N18.9 - Chronic kidney disease, unspecified Status: Chronic Assessment and Plan: -Stage 3a CKD since May 2024 -Chronic anemia related to CKD and chemo/radiation for cervical cancer (7) Insulin dependent diabetes mellitus: Status: Chronic Assessment and Plan: -CGM in place, ok to use -Hold metformin, continue Lantus and use SSI (8) HTN (hypertension): Code(s): I10 - Essential (primary) hypertension Status: Chronic Assessment and Plan: -Noted history Quality VTE Prophylaxis VTE prophylaxis: pharmacologic ordered Hospitalist MIPS Advance Care Plan I have confirmed that the patient's Advanced Care Plan is present, code status is documented, or surrogate decision maker is listed in patient medical record.: Yes Medication Reconciliation I have utilized all available resources to obtain, update and review the patients current medications (includes all prescriptions, OTC, herbals, cannabis, and nutritional supplements).: Yes
[2025-01-21] MEDS: MAGNESIUM OXIDE 400 MG TABLET BY MOUTH ×2 (10:19→17:44)
[2025-01-21 11:49] LABS: Iron 87 ug/dL (37-170)
[2025-01-21 11:58] LABS: Percent Iron Saturation 33 % (20-50)
[2025-01-21 12:00] VITALS: PULSE 70
[2025-01-21] MEDS: SODIUM CHLORIDE 0.9% IV 1,000 ML 50 ML IV CONT (12:01)
[2025-01-21 12:25] LABS: Ferritin 318.00 ng/mL (11.1-264)
[2025-01-21 12:56] LABS: Vitamin B12 206.0 pg/mL (239-931)
--- NOTE | 2025-01-21 14:24 | PC.NURSE ---
Pt voided 300 ml in BSC. Bladder scanner showed a 71ml residual.
[2025-01-21 16:00] VITALS: BP 138/71; PULSE 63; RESP 18; TEMP 36.6; O2SAT 98
--- NOTE | 2025-01-21 16:38 | PC.NURSE ---
Pt blood sugar reading on CGM is 111. Pt refused fingerstick at this time.
--- NOTE | 2025-01-21 18:00 | PC.NURSE ---
Pt voided 250 ml in BSC. Bladder scanner showed a 128 ml residual.
[2025-01-21] MEDS: INSULIN GLARGINE (*BKC) 1,000 UNITS/10 ML VIAL 10 UNITS SUB-Q (20:49)
[2025-01-22] VITALS: BP 159/79; PULSE 70; RESP 17; TEMP 36.1; O2SAT 96
--- NOTE | 2025-01-22 01:28 | PC.NURSE ---
HS bg per pt's CGM 135. 2100
[2025-01-22 07:05] LABS: Hematocrit 24.7 % (35.0-49.0); Hemoglobin 8.1 g/dL (12.0-15.0); Mean Corpuscular HGB Conc 32.8 g/dL (32-36); Mean Corpuscular Hemoglobin 30.2 pg (27.0-31.0); Mean Corpuscular Volume 92.2 fL (78.0-102.0); Platelet Count Result 149 K/mm3 (150-420); Red Blood Count 2.68 M/mm3 (4.20-5.40); White Blood Count 2.4 K/mm3 (4.8-10.8)
[2025-01-22 07:19] LABS: Alanine Aminotransferase 7 U/L (6-35); Albumin Level 3.4 g/dL (3.5-5.1); Alkaline Phosphatase 35 U/L (38-126); Anion Gap 4 mmol/L (4-12); Aspartate Amino Transferase 16 U/L (14-36); Bilirubin,Total 0.5 mg/dL (0.2-1.3); Blood Urea Nitrogen 10 mg/dL (7-17); Calcium 9.1 mg/dL (8.4-10.2); Carbon Dioxide 23 mmol/L (22-30); Chloride 107 mmol/L (98-107); Estimated CRCL calculation 46 ml/min; Estimated Glomerular Filt Rate 49; Glucose 108 mg/dL (65-110); Magnesium 1.8 mg/dL (1.6-2.3); Osmolality Calculated 278 mOsm/kg (285-295); Potassium 4.0 mmol/L (3.4-5.0); Sodium 134 mmol/L (137-145); Total Protein 5.6 g/dL (6.3-8.2)
[2025-01-22 07:53] LABS: Band Neutrophils Percent 0 % (0-6); Basophils Absolute Manual 0.00 K/mm3 (0-0.1); Basophils Percent Manual 0 % (0-1); Eosinophils Absolute Manual 0.14 K/mm3 (0.02-0.50); Eosinophils Percent Manual 6 % (1-6); Lymphocytes Absolute Manual 0.36 K/mm3 (1.1-4.5); Lymphocytes Percent Manual 15 % (18-44); Monocytes Absolute Manual 0.31 K/mm3 (0.1-0.90); Monocytes Percent Manual 13 % (3-9); Neutrophils Absolute Manual 1.58 K/mm3 (1.3-6.7); Neutrophils Percent Manual 66 % (46-73); Total Cells Counted 100
[2025-01-22 08:00] VITALS: BP 151/85; PULSE 84; RESP 17; TEMP 36.8; O2SAT 97
[2025-01-22] MEDS: MAGNESIUM OXIDE 400 MG TABLET BY MOUTH (10:02)
--- NOTE | 2025-01-22 10:55 | PM.DS ---
DS: Admitting Diagnosis Discharge Date 01/22/2025 Admitting Diagnosis Nausea and Vomiting , Electrolyte imbalance, UTI DS: Discharge Diagnosis Discharge Diagnosis (1) Emphysematous cystitis: Code(s): N30.80 - Other cystitis without hematuria Status: Acute Assessment and Plan: -Air in bladder, last Nicolas catheter was 12 days ago, no other recent instrumentation -CT findings of left hydroureter and hydronephrosis with thickening suspicious for ascending UTI -No clear obstruction noted -UA with some signs of potential infection -Allergy to PCN and sulfa so treat with Levaquin (with renal adjustment) pending cultures -Blood cultures in process -Ordered bladder scan post void x 2 (2) Hydroureter on left: Code(s): N13.4 - Hydroureter Status: Acute Assessment and Plan: See above (3) Pyelonephritis of left kidney: Code(s): N12 - Tubulo-interstitial nephritis, not specified as acute or chronic Status: Acute Assessment and Plan: See above (4) Nausea vomiting and diarrhea: Code(s): R11.2 - Nausea with vomiting, unspecified; R19.7 - Diarrhea, unspecified Status: Acute Assessment and Plan: -Alternating nausea/vomiting or diarrhea causing decreased oral intake and frequent dehydration -Patient getting IV fluids twice a week or more at Cancer Center -Zofran and Promethazine available for treatment (5) Cervical cancer: Qualifiers: Malignant neoplasm of cervix location: unspecified location Qualified Code(s): C53.9 - Malignant neoplasm of cervix uteri, unspecified Code(s): C53.9 - Malignant neoplasm of cervix uteri, unspecified Status: Acute Assessment and Plan: -S/P chemo and radiation including 5 dose of internal radiation, last chemo end of November and last internal radiation end of December 2024 (6) CKD (chronic kidney disease): Qualifiers: Chronic kidney disease stage: unspecified stage Qualified Code(s): N18.9 - Chronic kidney disease, unspecified Code(s): N18.9 - Chronic kidney disease, unspecified Status: Chronic Assessment and Plan: -Stage 3a CKD since May 2024 -Chronic anemia related to CKD and chemo/radiation for cervical cancer (7) Insulin dependent diabetes mellitus: Status: Chronic Assessment and Plan: -CGM in place, ok to use -Hold metformin, continue Lantus and use SSI (8) HTN (hypertension): Code(s): I10 - Essential (primary) hypertension Status: Chronic Assessment and Plan: -Noted history DS: Summary Hospital Course Reason for hospitalization: nasuea and vomiting, UTI Hospital Course: This is a 64 year old female that has been admitted for acute nausea and vomiting induced by radiation and chemotherapy in which caused electrolyte imbalance and some dehydration . Since patient has been admitted on the floor there has been no vomiting but she has received Zofran and Compazine in which has resolved her nausea and IV fluids. patient is feeling a lot better and has received IV Magnesium which is currently 1.8. Patient is being treated for cervical cancer in which she received her last doese last week. Patient denies any shortness of breath and will go home and follow up with her PRIMARY and oncologist. Patient will also receive Levaquin for a UTI. Time Spent with Patient Time attestation: Total time spent providing and/or coordinating discharge services: Exam Narrative: Chronically ill appearing and pale, no acute distress noted Lungs clear, no dyspnea/labored breathing Rate and rhythm regular No abdominal tenderness, normal bowel sounds Awake, alert and oriented, moves all extremities well DS: Data Data Completed and Pending Labs on day of discharge: Labs from last 24 hours 01/22/25 01/21/25 01/21/25 06:00 12:00 05:02 WBC 2.4 L RBC 2.68 L Hgb 8.1 L Hct 24.7 L MCV 92.2 MCH 30.2 MCHC 32.8 RDW 16.9 H Plt Count 149 L MPV 8.9 L Immature Gran % (Auto) Not Reportable Neut % (Auto) Not Reportable Lymph % (Auto) Not Reportable [place] % (Auto) Not Reportable Eos % (Auto) Not Reportable Baso % (Auto) Not Reportable Lymph # (Auto) Not Reportable [place] # (Auto) Not Reportable Eos # (Auto) Not Reportable Baso # (Auto) Not Reportable Abs Immat Gran (auto) Not Reportable Absolute Neuts (auto) Not Reportable Absolute Nucleated RBC Not Reportable Total Counted 100 Neutrophils % (Manual) 66 Band Neutrophils % 0 Lymphocytes % (Manual) 15 L Monocytes % (Manual) 13 H Eosinophils % (Manual) 6 Basophils % (Manual) 0 Nucleated RBC % Not Reportable Abs Neuts (Manual) 1.58 Abs Lymphs (Manual) 0.36 L Abs Monocytes (Manual) 0.31 Absolute Eos (Manual) 0.14 Abs Basophils (Manual) 0.00 Platelet Estimate Adequate Schistocytes Not Reportable Sodium 134 L Potassium 4.0 Chloride 107 Carbon Dioxide 23 Anion Gap 4 BUN 10 D Creatinine 1.11 H Estim Creat Clear Calc 46 Estimated GFR 49 L Glucose 108 POC Capillary Glucose 134 H Calculated Osmolality 278 L Calcium 9.1 Phosphorus 3.6 Magnesium 1.8 Iron 87 TIBC 265 % Saturation 33 Ferritin 318.00 H Total Bilirubin 0.5 AST 16 ALT 7 Alkaline Phosphatase 35 L Total Protein 5.6 L Albumin 3.4 L Vitamin B12 206.0 L Folate 9.9 Preliminary micro results at discharge 01/20/25 14:22 Blood Culture - Preliminary Blood Discharge Plan Discharge Attending physician on discharge: Kay Jung Discharging Clinician: Juancarlos Daley Anticipated Discharge Date/Time: 01/22/25 10:51 Patient Disposition: Home Activity: may shower and as tolerated Diet: as tolerated Wound Care Instructions: follow printed instructions Discharge Instructions: Please make sure that if these symptoms return to come to the closet emergency room Patient Instructions: Antibiotic Form, Magnesium (By mouth), Fall Prevention for Older Adults (DC), Acute Nausea and Vomiting (DC), Hypomagnesemia (DC) Patient Language: Trinid[place] Stand Alone Forms: General Discharge Information Follow-up/Referrals: Diann Crain, [employer]VEN[employer]TLEMENTS ADMINISTRATOR [Primary Care Provider] - Discharge Medications: New levofloxacin 500 mg tablet 500 mg PO DAILY Qty: 5 0RF Continued ondansetron 4 mg tablet,disintegrating 4 mg PO DAILY 3 Days Qty: 10 0RF prochlorperazine maleate [Compazine] 10 mg tablet 10 mg PO Q6H PRN (Reason: nausea and vomiting) (DME) blood-glucose meter Kit See Rx Instructions .Route Qty: 1 0RF Rx Instructions: As directed insulin glargine [Lantus Solostar U-100 Insulin] 100 unit/mL (3 mL) insulin pen 15 unit subcut QPM Qty: 15 3RF (DME) lancets [Acti-Estuardo Lancets] 28 gauge misc See Rx Instructions .Route Qty: 100 3RF Rx Instructions: BID metformin 500 mg tablet extended release 24 hr 500 mg PO BID Qty: 90 5RF (DME) Blood Glucose Test Strip See Rx Instructions .Route Qty: 50 3RF Rx Instructions: BID insulin lispro 100 unit/mL insulin pen See Rx Instructions subcut TID MDD 30 units Qty: 15 3RF Rx Instructions: SS BS 150-200: 2 units; BS 201-250: 4 units; BS 251-300: 6 units; 301-350: 8 units; 351-400: 10 units (DME) lancets [On-The-Go Lancets] 30 gauge misc See Rx Instructions .Route Qty: 100 1RF Rx Instructions: ACHS (DME) FreeStyle Kim 3 [place] Misc See Rx Instructions .Route Qty: 1 0RF Rx Instructions: As directed (DME) FreeStyle Kim 3 Sensor Device See Rx Instructions .Route Qty: 6 12RF Rx Instructions: As directed ondansetron 4 mg tablet,disintegrating 4 mg PO Q8H PRN (Reason: nausea and vomiting) Qty: 30 0RF magnesium oxide 400 mg (241.3 mg magnesium) tablet See Rx Instructions .ROUTE .COMPLEX Qty: 120 1RF Dose Instruction: TAKE 1 TABLET BY MOUTH TWICE A DAY Rx Instructions: TAKE 1 TABLET BY MOUTH TWICE A DAY Date of admission: 01/20/25 15:31 Primary Care Provider: Diann Crain Admitting Provider: Juancarlos Daley Attending physician on admission: Juancarlos Daley Condition: Stable
--- NOTE | 2025-01-22 11:50 | PC.NURSE ---
Discharge instructions reviewed with pt. All questions answered. Pt escorted via wheelchair and assisted into private vehicle.
--- NOTE | 2025-01-23 08:40 | PC.NURSE ---
Discharge call back made and spoke with Ida. She informs pharmasist calleed her after RX was picked up and informed what she could and could not take with magnesium. Other than that she has had all other meds before and she did not have any question to nurse about side effects. No questions on discharge instructions or education.
--- OUTSIDE RECORDS SUMMARY | 2025-01-24 07:31 | XMS_ITS | Clinical Summary ---
Author Organization [facility] Address [address] [facility] [place] [address] Care Team Providers Care Loading Unit Operator Powder Charging Name Role Phone Diann Crain CLAIMS ACCOUNT MANAGER-UNLOADER Primary Care Provid er Source Comments [facility],non-owned Affiliates and Associated Physician Practices is amultiple site organization consisting of ambulatory clinics and hospital sitesin [place], [place], [place] and [place]. This disclosure is being madepursuant to the Care Everywhere program and may not contain all information available regarding this patient. Last updated 18.[facility] Allergies Active Allergy Reactions Criticality Noted [...] times daily 60 capsule 1 5 Active gabapentin (Neurontin) 300 MG capsule Take [...] times daily with morning and evening meal 5 Active Magnesium Oxide -Mg Supplement 400 (240 Mg) MG Take 1 (one) tablet by mouth 2 times daily 5 Active phenazopyridin e (Pyridium) 200 MG tablet Take 1 (one) tablet by mouth 3 times daily with meals 30 tablet 5 Active Active Problems Problem Noted Date Diagnosed Date Diabetes mellitus, type 2 01/05/2025 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 x 12/27/2024 Encounters Date Type Department Care Team Description 01/10/2025 9:00 AM CDT Office Visit [facility] - Rad/Onc [address] [place] [phone] Montana Lakhani MD 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 (HCC) (Primary Dx) 01/10/2025 7:22 AM CDT Anesthesia Event [facility] [address] [place] [phone] Wally Serrano MD Levin, Vitaly F, MD 01/10/2025 7:15 AM CDT - 01/10/2025 8:24 AM CDT Surgery [facility] [address] [place] [phone] Saran Troy MD [employer]ACEMENT 01/10/2025 5:32 AM CDT - 01/10/2025 11:53 AM CDT Hospital Encounter [facility] [address] [place] [phone] Saran Troy MD Surgery General Discharge Disposition: Home or Self Care 01/10/2025 Travel 01/05/2025 9:30 AM CDT Office Visit [facility] - Rad/Onc [address] [place] [phone] Montana Lakhani MD 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 (HCC) (Primary Dx) 01/05/2025 7:25 AM CDT Anesthesia Event [facility] [address] [place] [phone] Milly Rausch MD Levin, Vitaly F, MD 01/05/2025 7:15 AM CDT - 01/05/2025 8:45 AM CDT Surgery [facility] [address] [place] [phone] Antonia Rodriguez MD PLACEMENT OF TANDEM [employer] RING 01/05/2025 5:10 AM CDT - 01/05/2025 12:21 PM CDT Hospital Encounter [facility] [address] [place] [phone] Antonia Rodriguez MD Surgery General Discharge Disposition: Home or Self Care 01/05/2025 Travel 01/03/2025 9:30 AM CDT Office Visit [facility] - Rad/Onc [address] [place] [phone] Montana Lakhani MD 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 (HCC) (Primary Dx) 01/03/2025 7:21 AM CDT Anesthesia Event [facility] [address] [place] [phone] Milly Rausch MD Will, Margaret H, APRN-SHANIA 01/03/2025 7:15 AM CDT - 01/03/2025 8:24 AM CDT Surgery [facility] [address] [place] [phone] Saran Troy MD PLACEMENT OF T[employer]DEM [employer] RING 01/03/2025 5:26 AM CDT - 01/03/2025 12:20 PM CDT Hospital Encounter [facility] [address] [place] [phone] Saran Troy MD Surgery General Discharge Disposition: Home or Self Care 12/27/2024 9:30 AM CDT Office Visit [facility] - Rad/Onc [address] [place] [phone] Montana Lakhani MD 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 (HCC) (Primary Dx) 12/27/2024 7:23 AM CDT Anesthesia Event [facility] [address] [place] [phone] Milly Rausch MD 12/27/2024 7:15 AM CDT - 12/27/2024 8:15 AM CDT Surgery [facility] [address] [place] [phone] Montana Villa MD PLACEMENT OF T[employer]DEM [employer] RINGS 12/27/2024 5:50 AM CDT - 12/27/2024 12:45 PM CDT Hospital Encounter [facility] [address] [place] [phone] Montana Villa MD Surgery General Discharge Disposition: Home or Self Care 12/27/2024 Travel 12/26/2024 Travel 12/22/2024 9:30 AM CDT Office Visit [facility] - Rad/Onc [address] [place] [phone] Motnana Lakhani MD 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 (HCC) (Primary Dx) 12/22/2024 7:21 AM CDT Anesthesia Event [facility] [address] [place] [phone] Jay Jones MD Hogan, Steven 12/22/2024 7:15 AM CDT - 12/22/2024 8:21 AM CDT Surgery [facility] [address] [place] [phone] Lamont Cueva MD PLACEMENT OF [employer]DEM [employer] RING 12/22/2024 5:42 AM CDT - 12/22/2024 12:45 PM CDT Hospital Encounter [facility] [address] [place] [address] Lamont Cueva MD Surgery General Discharge Disposition: Home or Self Care 12/22/2024 Travel 12/21/2024 Travel 12/21/2024 Telephone [facility] - FINANCE ADMIN [address] [facility] [address] [place] [phone] Antonia Rodriguez MD Question 12/20/2024 Telephone [facility] - Rad/Onc [address] [place] [phone] Argentina Rosenthal, RN Appointment 12/20/2024 Travel 12/19/2024 Telephone [facility] - FINANCE ADMIN [address] [facility] [place] [phone] Montana Villa MD Question 12/13/2024 Telephone [facility] - Rad/Onc [address] [place] [phone] Argentina Rosenthal, RN Appointment 12/12/2024 Travel 12/02/2024 Telephone [facility] - Rad/Onc [address] [place] [phone] Argentina Rosenthal, RN Appointment 11/16/2024 1:00 PM CDT - 12/18/2024 11:59 PM CDT Hospital Encounter [facility] - Radiation Oncology [address] [place] [phone] Montana Lakhani MD Discharge Disposition: Home or Self Care 11/16/2024 1:00 PM CDT Office Visit [facility] - Rad/Onc [address] [place] [phone] Montana Lakhani MD 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 (HCC) (Primary Dx) 11/16/2024 Travel 11/04/2024 Travel 10/26/2024 Telephone [facility] - Rad/Onc [address] [place] [phone] Argentina Rosenthal, RN Follow-up 10/26/2024 Orders Only [facility] - FINANCE ADMIN [address] [facility] [address] [place] [phone] Antonia Rodriguez MD Malignant neoplasm of cervix, unspecified site (HCC) 10/26/2024 Telephone [facility] - Rad/Onc [address] [place] [phone] Argentina Rosenthal, RN Appointment from [...] on file 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 Gender Identity Not on file Sexual Orientation [...] Description 04/13/2025 11:00 AM CDT Office Visit [facility] - Rad/Onc [address] [place] [phone] Montana Lakhani MD [address] [place] [address] Health Maintenance Due Date Last Done Comments [...] 60-74 years 1-dose series) 2020 COVID-19 VACCINE (2023- season) 2024 05/28/2023, 05/06/2022, 06/29/2021, Additional history [...] MASK AIRWAY Routine 01/10/2025 7:34 AM CDT NC INSERT UTERI TANDEMS/OVOIDS 01/10/2025 7:08 AM CDT Diagnosis unknown GLUCOSE - POINT OF CARE Routine 01/10/2025 6:02 AM CDT CARDIAC RHYTHM STRIP ORDER 01/09/2025 6:21 PM CDT CARDIAC RHYTHM STRIP ORDER 01/05/2025 4:23 PM CDT GLUCOSE - POINT OF CARE Routine 01/05/2025 11:58 AM CDT GLUCOSE - POINT OF CARE Routine 01/05/2025 8:00 AM CDT NC INSERT UTERI TANDEMS/OVOIDS 01/05/2025 7:10 AM CDT [...] MASK AIRWAY Routine 01/03/2025 7:37 AM CDT NC INSERT UTERI TANDEMS/OVOIDS 01/03/2025 6:35 AM CDT [...] OF CARE Routine 12/27/2024 6:48 AM CDT NC INSERT UTERI TANDEMS/OVOIDS 12/27/2024 6:45 AM CDT Diagnosis unknown CARDIAC RHYTHM STRIP ORDER 12/26/2024 6:38 PM CDT RAD ONC ARIA SESSION SUMMARY Routine 12/22/2024 11:27 AM CDT GLUCOSE - POINT OF CARE Routine 12/22/2024 8:10 AM CDT CULTURE URINE STAT 12/22/2024 7:44 AM CDT Diagnosis unknown ENDOTRACHEAL TUBE NOTE Routine 12/22/2024 7:38 AM CDT NC INSERT UTERI TANDEMS/OVOIDS 12/22/2024 7:06 AM CDT [...] Summary (01/10/2025 10:42 AM CDT) Course ID [id number] xTnO RAD ONC TREATMENT Course First Treatment [...] Summary (01/10/2025 10:42 AM CDT) Course ID [id number] xTnO RAD ONC TREATMENT Course First Treatment [...] 99 mg/dL 01/10/2025 8:14 AM CDT [facility] Specimen Type Arterial/C apillary 01/10/2025 8:14 AM CDT [facility] Blood BLOOD SPECIMEN / Unknown 01/10/2025 8:08 AM CDT 01/10/2025 8:14 AM CDT Saran Troy MD LAB - POINT OF CARE ORDERABLES Final Result Performing Organization Address City/State/[facility] Co de Phone Number [facility] [address] [place] [address] * LARYNGEAL MASK AIRWAY (01/10/2025 7:34 AM [...] Summary (01/03/2025 11:22 AM CDT) Course ID [id number] xTnO RAD ONC TREATMENT Course First Treatment Date 12/22/2024 11:26 AM RAD ONC TREATMENT Plan ID Cervix 3000 RAD ONC TREATMENT Plan Fractions Treated to Date 3 RAD ONC TREATMENT Plan Total Fractions Prescribed 5 RAD ONC TREATMENT Plan Total Prescribed Dose 3000 cGy RAD ONC TREATMENT 01/03/2025 11:2 2 AM CDT Provider Unknown RADIATION ONCOLOGY ORDERABLES F inal Result Performing Organization Address City/[facility]/ZIP Co de Phone Number RAD ONC TREATMENT * Rad Onc Aria Session Summary (01/03/2025 11:21 AM CDT) Course ID [id number] xTnO RAD ONC TREATMENT Course First Treatment Date 12/22/2024 11:26 AM RAD ONC TREATMENT Plan ID Cervix 3000 RAD ONC TREATMENT Plan Fractions Treated to Date 2 RAD ONC TREATMENT Plan Total Fractions Prescribed 5 RAD ONC TREATMENT Plan Total Prescribed Dose 3000 cGy RAD ONC TREATMENT 01/03/2025 11:2 1 AM CDT Provider Unknown RADIATION ONCOLOGY ORDERABLES F inal Result Performing Organization Address [facility] Co de Phone Number RAD ONC TREATMENT * CULTURE URINE (01/03/2025 7:52 AM CDT) Only the most recent of2 resultswithin the time period is included. Culture Urine No growth (<100 CFU/mL) SALOOMN 01/04/2025 3:15 PM CDT [facility] MICROBIOLOGY Urine URINE SPECIMEN COLLECTION, CATHETERIZED / Unknown Collection / Unknown 01/03/2025 7:52 AM CDT 01/03/2025 8:41 AM CDT Comment:Pre-op diagnosis: Diagnosis unknown [R69] Saran Troy MD LAB - MICROBIOLOGY ORDERABLES Final Result Performing Organization Address City/[facility]/ZIP Co de Phone Number [facility] MICROBIOLOGY [address] [place], [place] [address], [facility] [phone] * LARYNGEAL MASK AIRWAY (01/03/2025 7:37 AM CDT) Narrative Shelby Garcia APRN-WELLNESS PROGRAM MANAGER - 01/03/2025 7:37 AM CDT Shelby Garcia APRN-CRNA 01/03/2025 7:37 AM LMA Placement Procedure/LDA [...] 15.8 g/dL 12/27/2024 7:06 AM CDT [facility] Hematocrit 30.2(L) 34.8 - 46.1 % 12/27/2024 7:06 AM CDT [facility] Blood BLOOD SPECIMEN / Unknown Venipuncture / Unknown 12/27/2024 6:49 AM CDT 12/27/2024 7:03 AM CDT Jerry Deleon MD LAB - HEMATOLOGY ORDERABLES Teresa l Result [facility] [address] [place] [address] * Rad Onc Aria Session Summary (12/22/2024 11:27 AM CDT) Course ID [id number] xTnO RAD ONC TREATMENT Course First Treatment Date 12/22/2024 11:26 AM RAD ONC TREATMENT Plan ID Cervix 3000 RAD ONC TREATMENT Plan Fractions Treated to Date 1 RAD ONC TREATMENT Plan Total Fractions Prescribed 5 RAD ONC TREATMENT Plan Total Prescribed Dose 3000 cGy RAD ONC TREATMENT 12/22/2024 11:2 7 AM CDT Provider Unknown RADIATION ONCOLOGY ORDERABLES F inal Result Performing Organization Address [facility] Co de Phone Number RAD ONC TREATMENT * ETT LINE PERFORMABLE (12/22/2024 7:38 AM CDT) Narrative José Antonio Child APRN-CRNA - 12/22/2024 7:38 AM CDT José Antonio Child APRN-CRNA 12/22/2024 7:40 AM Endotracheal Tube Placement: Patient Location: OR. Intubation Event Date/Time: 12/22/2024 7:27 AM Procedure: intubation ([id number]) Procedure Section: Sedation: under general anesthesia. Indications [...] Result from Last 3 Months Insurance [facility] Address: [facility] [id number] [place] [address] Care Teams Loading Unit Operator Powder Charging Relationship Specialty Start Date End Date Diann Crain, CLAIMS ACCOUNT MANAGER-UNLOADER [address] [place] [address] PCP - General Nurse Practitioner Family 09/15/24
--- OUTSIDE RECORDS SUMMARY | 2025-01-24 07:31 | XMS_ITS | Clinical Summary ---
Author Organization [facility] Address [address] [place] [address] Phone Care Team Providers Care People Greeter Name Role Phone DavidbeatrisDiann [employer], AIRLINE OPERATIONS AGENT Primary Care Provi scot Antonia Rodriguez MD Unavailable [phone] Malvin Estrada MD Unavailable [phone] Taqueria Gresham MD Unavailable [phone] Montana Lakhani MD Unavailable [phone] Allergies Active Allergy Reactions Criticality Noted Date [...] 30 Capsule 1 11/09/19 25 025 Discontinued Active Problems Problem Noted Date Diagnosed Date [...] Date Type Department Care Team Description 01/20/2025 Travel 01/20/2025 Telephone [facility] Oncology Services [address] [place] [address] Malvin Estrada MD 01/19/2025 Telephone [facility] [address] [place] [phone] Malvin Estrada MD 12/31/2024 [facility]ill [facility] [address] [place] [phone] Malvin Estrada MD Medication Refill 12/23/2024 Telephone [facility] [address] [place] [phone] Bryanna Smith APRN, NELIDA 12/19/2024 Telephone [facility] [address] [place] [phone] Malvin Estrada MD 12/19/2024 Telephone [facility] [address] [place] [phone] Malvin Estrada MD 12/12/2024 8:30 AM CDT Clinical Support [facility] Oncology Services [address] [place] [phone] Bryanna Smith APRN, AIRLINE OPERATIONS AGENT Cervical cancer, FIGO stage IB (HCC) (Primary Dx); Cervical cancer, FIGO stage IIB (HCC); Dysuria Discharge Disposition: Discharged to home or Selfcare 12/12/2024 8:15 AM CDT Office Visit [facility] Oncology Services [address] [place] [phone] Bryanna Smith APRN, AIRLINE OPERATIONS AGENT Cervical cancer, FIGO stage IB (HCC) (Primary Dx); History of therapeutic radiation; History of cancer chemotherapy; Dysuria; Chemotherapy induced diarrhea; Chemotherapy-induce d nausea Discharge Disposition: Discharged to home or Selfcare 12/12/2024 Travel 12/10/2024 Travel 12/07/2024 Documentation Only [facility] Oncology Services [address] [place] [phone] Yanet Black Donovan, RD 12/05/2024 9:00 AM CDT Clinical Support [facility] Oncology Services [address] [place] [phone] Malvin Estrada MD Cervical cancer, FIGO stage IB (HCC) (Primary Dx); Cervical cancer, FIGO stage IIB (HCC) Discharge Disposition: Discharged to home or Selfcare 12/05/2024 9:00 AM CDT Office Visit [facility] On[facility] Services [address] [place] [phone] Taqueria Gresham MD Butler, David Ferrell, MD Cervical cancer, FIGO stage IIB (HCC) (Primary Dx); Encounter for radiotherapy; Patient on combined chemotherapy and radiation Discharge Disposition: Discharged to home or Selfcare 12/05/2024 8:45 AM CDT Clinical Support [facility] Oncology Services [address] [place] [phone] Taqueria Gresham MD History of therapeutic radiation (Primary Dx); History of cancer chemotherapy; Cervical cancer, FIGO stage IB (HCC) Discharge Disposition: Discharged to home or Selfcare 12/05/2024 Travel 12/03/2024 Travel 12/02/2024 10:00 AM CDT Clinical Support [facility] Oncology Services [address] [place] [phone] Taqueria Gresham MD Discharge Disposition: Discharged to home or Selfcare 12/02/2024 Travel 12/01/2024 10:00 AM CDT Clinical Support [facility] Oncology Services [address] [place] [phone] Taqueria Gresham MD Discharge Disposition: Discharged to home or Selfcare 12/01/2024 Travel 11/30/2024 10:00 AM CDT Clinical Support [facility] Oncology Services [address] [place] [phone] Taqueria Gresham MD Discharge Disposition: Discharged to home or Selfcare 11/30/2024 Travel 11/29/2024 10:00 AM CDT Clinical Support [facility] Oncology Services [address] [place] [phone] Taqueria Gresham MD Discharge Disposition: Discharged to home or Selfcare 11/29/2024 Travel 11/28/2024 10:15 AM CDT Office Visit [facility] Oncology Services [address] [place] [phone] Taqueria Gresham MD Encounter for radiotherapy (Primary Dx); Patient on combined chemotherapy and radiation; Cervical cancer, FIGO stage IIB (HCC); Loose stools Discharge Disposition: Discharged to home or Selfcare 11/28/2024 10:00 AM CDT Clinical Support [facility] Oncology Services [address] [place] [phone] Taqueria Gresham MD Discharge Disposition: Discharged to home or Selfcare 11/28/2024 9:00 AM CDT Clinical Support [facility] Oncology Services [address] [place] [phone] Malvin Estrada MD Cervical cancer, FIGO stage IIB (HCC) (Primary Dx); Cervical cancer, FIGO stage IB (HCC) Discharge Disposition: Discharged to home or Selfcare 11/28/2024 Travel 11/27/2024 Travel 11/26/2024 Travel 11/25/2024 10:00 AM CDT Clinical Support [facility] Oncology Services [address] [place] [phone] Taqueria Gresham MD Discharge Disposition: Discharged to home or Selfcare 11/25/2024 Travel 11/24/2024 11:00 AM CDT Clinical Support [facility] Oncology Services [address] [place] [phone] Taqueria Gresham MD Cervical cancer, FIGO stage IIB (HCC) (Primary Dx); Diarrhea, unspecified type Discharge Disposition: Discharged to home or Selfcare 11/24/2024 10:00 AM CDT Documentation Only [facility] [address] [place] [phone] Taqueria Gresham MD Cervical cancer, FIGO stage IIB (HCC) Discharge Disposition: Discharged to home or Selfcare 11/24/2024 Travel 11/23/2024 10:00 AM CDT Clinical Support [facility] Oncology Services [address] [place] [phone] Malvin Estrada MD Diarrhea, unspecified type (Primary Dx) Discharge Disposition: Discharged to home or Selfcare 11/23/2024 10:00 AM CDT Clinical Support [facility] Oncology Services [address] [place] [phone] Taqueria Gresham MD Discharge Disposition: Discharged to home or Selfcare 11/23/2024 9:15 AM CDT Office Visit [facility] Oncology Services [address] [place] [phone] Malvin Estrada MD Baxley, Brandy M, APRN, AIRLINE OPERATIONS AGENT Cervical cancer, FIGO stage IIB (HCC) (Primary Dx); Neuralgic pain; Diarrhea, unspecified type Discharge Disposition: Discharged to home or Selfcare 11/23/2024 Travel 11/22/2024 10:00 AM CDT Clinical Support [facility]cology Services [address] [place] [phone] Taqueria Gresham MD Discharge Disposition: Discharged to home or Selfcare 11/22/2024 Travel 11/21/2024 10:15 AM CDT Office Visit [facility] Oncology Services [address] [place] [phone] Taqueria Gresham MD Encounter for radiotherapy (Primary Dx); Patient on combined chemotherapy and radiation; Cervical cancer, FIGO stage IIB (HCC); Loose stools Discharge Disposition: Discharged to home or Selfcare 11/21/2024 10:00 AM CDT Clinical Support [facility] Oncology Services [address] [place] [phone] Taqueria Gresham MD Discharge Disposition: Discharged to home or Selfcare 11/21/2024 9:00 AM CDT Clinical Support [facility] Oncology Services [address] [place] [phone] Malvin Estrada MD Cervical cancer, FIGO stage IIB (HCC) (Primary Dx) Discharge Disposition: Discharged to home or Selfcare 11/21/2024 Travel 11/19/2024 Travel 11/18/2024 10:00 AM CDT Clinical Support [facility] Oncology Services [address] [place] [phone] Taqueria Gresham MD Discharge Disposition: Discharged to home or Selfcare 11/18/2024 Travel 11/17/2024 10:00 AM CDT Clinical Support [facility] Oncology Services [address] [place] [phone] Taqueria Gresham MD Discharge Disposition: Discharged to home or Selfcare 11/17/2024 Travel 11/16/2024 10:00 AM CDT Clinical Support [facility] Oncology Services [address] [place] [phone] Taqueria Gresham MD Discharge Disposition: Discharged to home or Selfcare 11/16/2024 Travel 11/15/2024 10:00 AM CDT Clinical Support [facility] Oncology Services [address] [place] [phone] Taqueria Gresham MD Discharge Disposition: Discharged to home or Selfcare 11/15/2024 9:00 AM CDT Clinical Support [facility] Oncology Services [address] [place] [phone] Malvin Estrada MD Cervical cancer, FIGO stage IB (HCC) (Primary Dx); Cervical cancer, FIGO stage IIB (HCC) Discharge Disposition: Discharged to home or Selfcare 11/15/2024 Travel 11/14/2024 10:15 AM CDT Office Visit [facility] On[facility] Services [address] [place] [phone] Taqueria Gresham MD Encounter for radiotherapy (Primary Dx); Patient on combined chemotherapy and radiation; Cervical cancer, FIGO stage IIB (HCC) Discharge Disposition: Discharged to home or Selfcare 11/14/2024 10:00 AM CDT Clinical Support [facility] Oncology Services [address] [place] [phone] Taqueria Gresham MD Discharge Disposition: Discharged to home or Selfcare 11/14/2024 Travel 11/13/2024 Travel 11/12/2024 Travel 11/11/2024 10:00 AM CDT Clinical Support [facility] Oncology Services [address] [place] [phone] Taqueria Gresham MD Discharge Disposition: Discharged to home or Selfcare 11/11/2024 Travel 11/10/2024 10:00 AM CDT Clinical Support [facility] Oncology Services [address] [place] [phone] Taqueria Gresham MD Discharge Disposition: Discharged to home or Selfcare 11/10/2024 Travel 11/09/2024 10:00 AM CDT Clinical Support [facility] Oncology Services [address] [place] [phone] Taqueria Gresham MD Discharge Disposition: Discharged to home or Selfcare 11/09/2024 Travel 11/08/2024 10:15 AM CDT Office Visit [facility] Oncology Services [address] [place] [phone] Taqueria Gresham MD Encounter for radiotherapy (Primary Dx); Patient on combined chemotherapy and radiation; Cervical cancer, FIGO stage IIB (HCC); Vagina bleeding Discharge Disposition: Discharged to home or Selfcare 11/08/2024 10:00 AM CDT Clinical Support [facility] Oncology Services [address] [place] [phone] Taqueria Gresham MD Discharge Disposition: Discharged to home or Selfcare 11/08/2024 9:40 AM CDT Office Visit [facility] Oncology Services [address] [place] [phone] Malvin Estrada MD 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 (HCC) (Primary Dx); Controlled type 2 diabetes mellitus without complication, with long-term current use of insulin; Chemotherapy induced diarrhea; Cervical cancer, FIGO stage IIB (HCC); Neuralgic pain Discharge Disposition: Discharged to home or Selfcare 11/08/2024 9:00 AM CDT Clinical Support [facility] Services [address] [place] [phone] Malvin Estrada MD Cervical cancer, FIGO stage IIB (HCC) (Primary Dx) Discharge Disposition: Discharged to home or Selfcare 11/08/2024 Travel 11/07/2024 Travel 11/06/2024 Travel 11/04/2024 10:00 AM CDT Clinical Support [facility] Services [address] [place] [phone] Taqueria Gresham MD Discharge Disposition: Discharged to home or Selfcare 11/04/2024 Travel 11/03/2024 10:00 AM CDT Clinical Support [facility] On[facility] Services [address] [place] [phone] Taqueria Gresham MD Discharge Disposition: Discharged to home or Selfcare 11/03/2024 Travel 11/02/2024 10:00 AM CDT Clinical Support [facility] On[facility] Services [address] [place] [phone] Taqueria Gresham MD Discharge Disposition: Discharged to home or Selfcare 11/02/2024 Documentation Only [facility] Services [address] [place] [phone] Taqueria Gresham MD 11/02/2024 Travel 11/01/2024 10:00 AM CDT Clinical Support [facility] Oncology Services [address] [place] [phone] Taqueria Gresham MD Discharge Disposition: Discharged to home or Selfcare 11/01/2024 Travel 10/31/2024 10:30 AM CDT Office Visit [facility] Oncology Services [address] [place] [phone] Taqueria Gresham MD Butler, David Ferrell, MD Cervical cancer, FIGO stage IB (HCC) (Primary Dx); 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 (HCC) Discharge Disposition: Discharged to home or Selfcare 10/31/2024 10:30 AM CDT Clinical Support [facility] On[facility] Services [address] [place] [phone] Malvin Estrada MD Cervical cancer, FIGO stage IIB (HCC) (Primary Dx) Discharge Disposition: Discharged to home or Selfcare 10/31/2024 10:00 AM CDT [facility] [address] [place] [phone] Taqueria Gresham MD Butler, David Ferrell, MD Cervical cancer, FIGO stage IB (HCC) (Primary Dx); 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 (HCC) Discharge Disposition: Discharged to home or Selfcare 10/31/2024 8:15 AM CDT [facility] [address] [place] [phone] Bryanna Smith APRN, CNP Cervical cancer, FIGO stage IIB (HCC) (Primary Dx) Discharge Disposition: Discharged to home or Selfcare 10/31/2024 Travel 10/30/2024 Travel 10/29/2024 Travel 10/28/2024 Non-Scheduled [facility] [address] [place] [phone] Taqueria Gresham MD Cervical cancer, FIGO stage IIB (HCC) (Primary Dx) 10/24/2024 Telephone [facility] [address] [place] [phone] Malvin Estrada MD from Last 3 Months Family History [...] Description 03/14/2025 9:30 AM CDT Office Visit [facility] On[facility] [address] [place] [phone] Barry Martin MD [address] [place] [phone] Discharge Disposition: Discharged to home or Selfcare [...] 1.003 - 1.030 12/12/2024 10:11 AM CDT [facility] URINE PH 6.5 5.0 - 9.0 12/12/2024 10:11 AM CDT [facility] WBC ESTERASE 25 /ul(A) Negative 12/12/2024 10:11 AM CDT [facility] NITRITE Negative Negative 12/12/2024 10:11 AM CDT [facility] PROTEIN, RANDOM URINE 500 mg/dL(A) Negative 12/12/2024 10:11 AM CDT [facility] URINE GLUCOSE, QUAL Negative Negative 12/12/2024 10:11 AM CDT [facility] URINE KETONES 15 mg/dL(A) Negative 12/12/2024 10:11 AM CDT [facility] UROBILINOGEN Normal Normal mg/dL 12/12/2024 10:11 AM CDT [facility] URINE BLOOD 150 /uL(A) Negative debbie/ul 12/12/2024 10:11 AM CDT [facility] URINALYSIS COLOR Yellow 12/13/19 10:11 AM CDT [facility] URINALYSIS CLARITY Very Cloudy 12/12/2024 10:11 AM CDT [facility] WBC (Urine) 51-150(A) Negative, 0-5 /hpf 12/12/2024 10:11 AM CDT [facility] URINE RBC'S 51-150(A) Negative, 0-2 /hpf 12/12/2024 10:11 AM CDT [facility] EPITHELIAL CELLS Moderate amount /lpf 12/12/2024 10:11 AM CDT [facility] BACTERIA, URINE Few(A) Negative /hpf 12/12/2024 10:11 AM CDT [facility] Urine URINE SPECIMEN OBTAINED BY CLEAN CATCH PROCEDURE / Unknown Non-Phlebotomy Collection / Unknown 12/12/2024 9:43 AM CDT 12/12/2024 9:43 AM CDT us Bryanna Smith APRN, AIRLINE OPERATIONS AGENT URINE ORDERABLES Final Result [facility] [address] [place] [address] * CULTURE, URINE (12/12/2024 9:43 AM CDT) Pathologist [facility] CULTURE RESULTS GROUP B STREPTOCOCCUS 12/14/2024 8:58 AM CDT [facility] CULTURE RESULTS Also mixed growth of distal urethral contaminants 12/14/2024 8:58 AM CDT [facility] Urine URINE SPECIMEN OBTAINED BY CLEAN [...] IIB <=0.5 mcg/ml: Susceptible us Bryanna Smith [employer], AIRLINE OPERATIONS AGENT MICROBIOLOGY - GENERAL ORDERABLES Final Result Performing Organization Address City/State/[facility] Co de Phone Number [facility] [address] [place] [address], * (ABNORMAL) CBC WITH AUTO DIFFERENTIAL (12/12/2024 8:36 AM CDT) Only the most recent of8 resultswithin the time period is included. Pathologist [facility] WBC 1.92(L) 4.00 - 12.00 10(3)/mcL 12/12/2024 9:06 AM CDT [facility] RBC 3.18(L) 3.80 - 5.30 10(6)/mcL 12/12/2024 9:06 AM CDT [facility] HEMOGLOBIN (HGB) 8.8(L) 12.0 - 15.8 g/dL 12/12/2024 9:06 AM CDT [facility] HEMATOCRIT (HCT) 26.3(L) 36.0 - 47.0 % 12/12/2024 9:06 AM CDT [facility] MCV 82.7 82.0 - 96.0 fL 12/12/2024 9:06 AM CDT [facility] MCH 27.7 26.0 - 34.0 pg 12/12/2024 9:06 AM CDT [facility] MCHC 33.5 31.0 - 36.0 g/dL 12/12/2024 9:06 AM CDT [facility] PLATELET COUNT 94(L) 140 - 440 10(3)/mcL 12/12/2024 9:06 AM CDT [facility] RDW 14.8 11.8 - 15.5 % 12/12/2024 9:06 AM CDT [facility] MPV 8.7(L) 9.7 - 12.4 fL 12/12/2024 9:06 AM CDT [facility] NEUTROPHILS 70.3 47.0 - 73.0 % 12/12/2024 9:06 AM CDT [facility] LYMPHOCYTES 5.7(L) 18.0 - 42.0 % 12/12/2024 9:06 AM CDT [facility] MONOCYTES 14.6(H) 4.0 - 12.0 % 12/12/2024 9:06 AM CDT [facility] EOSINOPHILS 7.8(H) 0.0 - 5.0 % 12/12/2024 9:06 AM [facility] BASOPHILS 1.6(H) 0.0 - 1.0 % 12/12/2024 9:06 AM [facility] IMMATURE GRANULOCYTE 0.0 0.0 - 0.4 % 12/12/2024 9:06 AM CDT [facility] Comment:Immature Granulocyte s includes Metamyelocytes, Myelocytes, and Promyelocytes. ABSOLUTE NEUTROPHILS 1.35(L) 1.60 - 7.70 10(3)/mcL 12/12/2024 9:06 AM CDT [facility] ABSOLUTE LYMPHOCYTES 0.11(L) 1.30 - 3.20 10(3)/mcL 12/12/2024 9:06 AM CDT [facility] ABSOLUTE MONOCYTES 0.28 0.20 - 1.00 10(3)/mcL 12/12/2024 9:06 AM CDT [facility] ABSOLUTE EOSINOPHIL 0.15 0.00 - 0.40 10(3)/mcL 12/12/2024 9:06 AM CDT [facility] ABSOLUTE BASOPHILS 0.03 0.00 - 0.10 10(3)/mcL 12/12/2024 9:06 AM CDT [facility] ABSOLUTE IMMATURE GRANULOCYTE 0.00 0.00 - 0.03 10 (3) mcL. 12/12/2024 9:06 AM CDT [facility] NRBC PER 100 WBC 0 12/13/19 9:06 AM CDT [facility] RESULTS ARE CONSISTENT WITH PERIPHERAL SMEAR REVIEW Yes 12/12/2024 9:06 AM CDT [facility] Blood Venipuncture / Unknown 12/12/2024 8:36 AM CDT 12/12/2024 8:36 AM CDT Malvin Estrada MD HEMATOLOGY ORDERABLES Fi nal Result Performing Organization Address City/[facility]/ZIP Co de Phone Number [facility] [address] [place] [address] * (ABNORMAL) MAGNESIUM (MG) (12/12/2024 8:36 AM CDT) Only the most recent of5 resultswithin the time period is included. MAGNESIUM 1.4(L) 1.6 - 2.6 mg/dL 12/12/2024 9:13 AM CDT [facility] Blood Venipuncture / Unknown 12/12/2024 8:36 AM CDT 12/12/2024 8:36 AM CDT Malvin Estrada MD CHEMISTRY ORDERABLES Fin al Result Performing Organization Address City/[facility]/ZIP Co de Phone Number [facility] [address] [place] [address] * (ABNORMAL) CMP (COMPREHENSIVE METABOLIC PANEL) (12/12/2024 8:36 AM CDT) Only the most recent of8 resultswithin the time period is included. SODIUM 134(L) 136 - 145 mmol/L 12/12/2024 9:13 AM CDT [facility] POTASSIUM 3.9 3.5 - 5.1 mmol/L 12/12/2024 9:13 AM CDT [facility] CHLORIDE 100 98 - 107 mmol/L 12/12/2024 9:13 AM CDT [facility] CO2, VENOUS 24 22 - 30 mmol/L 12/12/2024 9:13 AM CDT [facility] ANION GAP 13.9 <18.0 mmol/L 12/12/2024 9:13 AM CDT [facility] GLUCOSE 104(H) 70 - 99 mg/dL 12/12/2024 9:13 AM CDT [facility] BUN 13 10 - 20 mg/dL 12/12/2024 9:13 AM CDT [facility] CREATININE, BLOOD 1.12(H) 0.60 - 1.00 mg/dL 12/12/2024 9:13 AM CDT [facility] BUN/CREATININE RATIO 12 12 - 20 ratio 12/12/2024 9:13 AM CDT [facility] TOTAL PROTEIN 6.3 6.0 - 8.0 g/dL 12/12/2024 9:13 AM CDT [facility] ALBUMIN 3.7 3.5 - 5.0 g/dL 12/12/2024 9:13 AM CDT [facility] A/G RATIO 1.4 1.0 - 2.2 12/12/2024 9:13 AM CDT [facility] CALCIUM 8.6(L) 8.7 - 10.5 mg/dL 12/12/2024 9:13 AM CDT [facility] T BILI 0.4 0.2 - 1.2 mg/dL 12/12/2024 9:13 AM CDT [facility] SGOT (AST) 17 <43 U/L 12/12/2024 9:13 AM CDT [facility] SGPT (ALT) <6 <56 U/L 12/12/2024 9:13 AM CDT [facility] ALKALINE PHOSPHATASE 36(L) 40 - 150 U/L 12/12/2024 9:13 AM CDT [facility] IS THE PATIENT REQUIRED TO BE FASTING? No 12/12/2024 9:13 AM CDT [facility] GFR, ESTIMATED 55(L) >=60 12/12/2024 9:13 AM CDT [facility] Comment: Creatinine Clearance is the preferred criteria for selecting drug dose adjustments in renally impaired patients. The GFR is provided as additional pertinent clinical information. GFR is reported in mL/min/1.73 sq m. Calculation based on the Chronic Kidney Disease Epidemiology Collaboration (CKD- EPI) equation refit without adjustment for race. GFR, EST. 59(L) >=60 12/12/ 025 9:13 AM CDT [facility] GFR, EST. NONAFRICAN 49(L) >=60 12/12/2024 9:13 AM CDT [facility] Blood Venipuncture / Unknown 12/12/2024 8:36 AM CDT 12/12/2024 8:36 AM CDT Malvin Estrada MD CHEMISTRY ORDERABLES Fin al Result [facility] [address] [place] [address] * RAD ONC ARIA COURSE SUMMARY (12/07/2024 [...] ORDERABLES F inal Result Performing Organization Address [facility] Co de Phone Number [facility] [address] [place] [address] * RAD ONC ARIA SESSION SUMMARY (12/05/2024 [...] F inal Result [facility] [address] [place] [address] * RAD ONC ARIA SESSION SUMMARY (12/02/2024 [...] F inal Result [facility] [address] [place] [address] * RAD ONC ARIA SESSION SUMMARY (12/01/2024 [...] ORDERABLES F inal Result Performing Organization Address City/[facility] Co de Phone Number [facility] [address] [place] [address] * RAD ONC ARIA SESSION SUMMARY (11/30/2024 [...] ORDERABLES F inal Result Performing Organization Address City/[facility] Co de Phone Number [facility] [address] [place] [address] * RAD ONC ARIA SESSION SUMMARY (11/29/2024 [...] F inal Result [facility] [address] [place] [address] * RAD ONC ARIA SESSION SUMMARY (11/28/2024 [...] ORDERABLES F inal Result Performing Organization Address [facility] Co de Phone Number [facility] [address] [place] [address] * RAD ONC ARIA SESSION SUMMARY (11/25/2024 [...] ORDERABLES F inal Result Performing Organization Address City/[facility]/ZIP Co de Phone Number ARIA RO MODEL [address] [place] [address] * C. DIFF BY PCR (11/25/2024 10:11 AM CDT) C DIFF TOXIN DNA BY PCR Negative Negative, Invalid 11/25/2024 11:19 AM CDT [facility] Other STOOL SPECIMEN / Unknown Non-Phlebotomy Collection / Unknown 11/25/2024 10:11 AM CDT 11/25/2024 10:11 AM CDT us Bryanna Smith APRN, AIRLINE OPERATIONS AGENT MICROBIOLOGY - GENERAL ORDERABLES Final Result Performing Organization Address City/[facility]/ZIP Co de Phone Number [facility] [address] [place] [address] * RAD ONC ARIA SESSION SUMMARY (11/24/2024 [...] F inal Result ARIA RO MODEL [address] [place] [address] * RAD ONC ARIA SESSION SUMMARY (11/23/2024 [...] F inal Result [address]A [address] MO[address] [place] [address] * RAD ONC ARIA SESSION SUMMARY (11/22/2024 [...] ORDERABLES F inal Result Performing Organization Address City/[facility] Co de Phone Number ARIA RO MODEL [address] [place] [address] * RAD ONC ARIA SESSION SUMMARY (11/21/2024 [...] ORDERABLES F inal Result Performing Organization Address [facility] Co de Phone Number ARIA RO MO[address] [place] [address] * RAD ONC ARIA SESSION SUMMARY (11/18/2024 [...] ORDERABLES F inal Result Performing Organization Address [facility] Co de Phone Number ARIA RO MODEL [address] [place] [address] * RAD ONC ARIA SESSION SUMMARY (11/17/2024 [...] ORDERABLES F inal Result Performing Organization Address [facility] Co de Phone Number ARIA RO MODEL [address] [place] [address] * RAD ONC ARIA SESSION SUMMARY (11/16/2024 [...] ORDERABLES F inal Result Performing Organization Address City/State/[facility] Co de Phone Number ARIA [address] MO[address] [place] [address] * RAD ONC ARIA SESSION SUMMARY (11/15/2024 [...] ORDERABLES F inal Result Performing Organization Address [facility] Co de Phone Number ARIA RO MODEL [address] [place] [address] * RAD ONC ARIA SESSION SUMMARY (11/14/2024 [...] ORDERABLES F inal Result Performing Organization Address [facility] Co de Phone Number ARIA RO MODEL [address] [place] [address] * RAD ONC ARIA SESSION SUMMARY (11/11/2024 [...] F inal Result [address] [place] [address] * RAD ONC ARIA SESSION SUMMARY (11/10/2024 [...] ORDERABLES F inal Result Performing Organization Address [facility] Co de Phone Number ARIA RO MO[address] [place] [address] * RAD ONC ARIA SESSION SUMMARY (11/09/2024 [...] ORDERABLES F inal Result Performing Organization Address [facility] Co de Phone Number ARIA RO MODEL [address] [place] [address] * RAD ONC ARIA SESSION SUMMARY (11/08/2024 [...] ORDERABLES F inal Result Performing Organization Address [facility] Co de Phone Number ARIA [address] MO[address] [place] [address] * RAD ONC ARIA SESSION SUMMARY (11/04/2024 [...] ORDERABLES F inal Result Performing Organization Address [facility] Co de Phone Number ARIA RO MODEL [address] [place] [address] * RAD ONC ARIA SESSION SUMMARY (11/03/2024 [...] F inal Result [address] [place] [address] * RAD ONC ARIA SESSION SUMMARY (11/02/2024 [...] ORDERABLES F inal Result Performing Organization Address City/[facility]/ZIP Co de Phone Number ARIA RO MODEL [address] [place] [address] * RAD ONC ARIA SESSION SUMMARY (11/01/2024 [...] ORDERABLES F inal Result Performing Organization Address City/[facility]/ZIP Co de Phone Number ARIA [address] MO[address] [place] [address] * RAD ONC ARIA SESSION SUMMARY (10/31/2024 [...] ORDERABLES F inal Result Performing Organization Address [facility] Co de Phone Number ARIA [address] [place] [address] * COLONOSCOPY (10/12/2024 12:00 AM CDT) 10/12/2024 Provider Scan PROCEDURE/MINOR SURGICAL ORDERAB LES Final Result SCAN from Last 3 Months or Most Recently Relevant to Health Maintenance Insurance [facility] Care Teams People Greeter Relationship Specialty Start Date End Date DaviddharmeshDiann carpenter, FINANCE ACCOUNTING INTERNSHIP, AIRLINE OPERATIONS AGENT [address] [place] [address] PCP - General Advanced Practice Nurse 10/10/24 Antonia Rodriguez MD [address] [address] Consulting Physician Gynecologic Oncology 10/11/24 Malvin Estrada MD [address] [place] [address] Consulting Physician Medical Oncology 10/11/24 Taqueria Gresham MD [address] [place] [address] Consulting Physician Radiation Oncology 10/11/24 Montana Lakhani MD [address] [place] [address] Consulting Physician Radiation Oncology 10/12/24
--- OUTSIDE RECORDS SUMMARY | 2025-01-24 07:31 | XMS_ITS | Patient Health Record ---
Author Organization [facility] Address [address] [place], [place] [address] Care Team Providers Care Cooking Chef Name Role Phone JESUS MANUEL AHMADI Unavailable [phone] Diann Crain Unavailable Unavailable SYDNICHANDNIJESUS MANUEL Unavailable [phone] Allergies Allergen (clinical drug ingredient) Drug/Non Drug [...] 10/06/2024 Encounters Encounter Location Date Provider Diagnosis [address] [id number] 08/04/2024 JESUS MANUEL AHMADI Tinea unguium B35.1 ; Pain in right toe(s) M79.674 ; Pain in left toe(s) M79.675 ; Atherosclerosis of [place] arteries of extremities with intermittent claudication, bilateral legs I70.213 and Type 2 diabetes mellitus with other circulatory complications E11.59 [facility] [place] [address] [place] [id number] 10/06/2024 JESUS MANUEL MCDONOUGH Atherosclerosis of [place] arteries of extremities with intermittent claudication, bilateral [...] and necrotic tissue removed 10/06/2024 Atherosclerosis of [place] arteries of extremities with intermittent claudication, bilateral [...] toe(s) (ICD-10 - M79.675) 08/04/2024 Atherosclerosis of [place] arteries of extremities with intermittent claudication, bilateral [...] Insured Coverage Start Date Coverage End Date Formerly Named [facility] ([facility]) ATTN CLAIMS [address] [place] [address] [id number] [place] Self - patient is the insured Medical (General) History Medical History History ICD Code neuropathy Arthritis Diabetic varicose veins
--- OUTSIDE RECORDS SUMMARY | 2025-01-24 07:31 | XMS_ITS ---
Author Organization [facility] Address [address] [place] [address] Care Team Providers Care Reproductive Endocrinologist Name Role Phone Diann Crain JAWBONE PULLER-GLOBAL ACCOUNT EXECUTIVE Primary Care Provid er Active Problems Problem Noted Date Diagnosed Date Diabetes mellitus, type 2 01/05/2025 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 x 12/27/2024 Current Treatment and Therapy Plans No current plan information found. Past Treatment and Therapy Plans No past plan information found. Radiation Treatments * Course [id number] 12/22/2024 - 01/10/2025 Treatment Period Energy Fraction Dose Fractions Total Dose Plans Planned Cervix 3000 12/22/2024 - 01/10/2025 5 / 5 3,000 cGy Reference Points Delivered
--- OUTSIDE RECORDS SUMMARY | 2025-01-24 07:31 | XMS_ITS ---
Author Organization [facility] Address [address] [place], [place] [address] Care Team Providers Care Statement Request Clerk Name Role Phone JESUS MANUEL AHMADI Unavailable [phone] Diann Crain Unavailable Unavailable JESUS MANUEL ORTEGA Unavailable [phone] REASON FOR VISIT *General care, sick Social History Sex Assigned At : Social History Observation Description Sex Assigned At Female Encounters Encounter Location Date Provider Diagnosis [facility] [place] [address] [facility] [address] [place], [place] [id number] 12/08/2024 JESUS MANUEL ORTEGA Plan Of Treatment No Information Progress Notes * Ida GRANDE RDOB: (64 yo F)Acc No.[id number]:12/08/2024 Patient: Sarah Ida MINER Provider: Oliver Ortega DPM :1960 A ge:64 Y S ex:Female Date:12/08/2024 Address:[address] [facility], [address] [place], [place] Subjective: * Chief Complaints: * 1 . *General care, sick. * Medical History: Objective: * Vitals: Assessment: Plan: * Treatment: * Billing Information: * Visit Code: * Procedure Codes: * Electronic signature of JESUS MANUEL ORTEGA DPM on 01/24/2025 at 07:31 AM CDT Sign off status: Pending * Provider: Oliver Ortega, MG Date: 0 12/08/2024 Generated for Sara ovalle/Bowen/Aranza on: 0 01/24/2025 07:31 AM CDT
--- OUTSIDE RECORDS SUMMARY | 2025-01-24 07:31 | XMS_ITS ---
Author Organization [facility] Address [address] [place], [place] [address] Care Team Providers Care Tree Topper Name Role Phone DAIANA JESUS MANUEL Unavailable [phone] Diann Crain Unavailable Unavailable Allergies Allergen (clinical [...] Female Encounters Encounter Location Date Provider Diagnosis [address] [id number] 08/04/2024 JESUS MANUEL AHMADI Tinea unguium B35.1 ; Pain in right toe(s) M79.674 ; Pain in left toe(s) M79.675 ; Atherosclerosis of [place] arteries of extremities with intermittent claudication, bilateral [...] toe(s) (ICD-10 - M79.675) 08/04/2024 Atherosclerosis of [place] arteries of extremities with intermittent claudication, bilateral [...] Ida GRANDE RDOB: 1 (64 yo F)Acc No.[id number]:08/04/2024 Progress Notes Patient: Ida KNOWLES Kassie Provider: Oliver Ahmadi DPM :1960 A ge:63 Y S ex:Female Date:08/04/2024 Address:[address] [facility], [address] [place], [place] [address] Subjective: * Chief Complaints: * 1 . [...] Dr. Breann gama as 07/2024., I nitials [facility]. * ROS: G eneral / Constitutional: [...] Edema: N o edema bilateral. N eurologic: Ravalli-Weinstin 5.07 monofilament d iminished protective sensation via [...] - M79.675 4 . A therosclerosis of [place] arteries of extremities with intermittent claudication, bilateral [...] develop.) * Billing Information: * Visit Code: 90653 Office Visit, New Pt., Level 3. * Procedure Codes: * Electronic signature of JESUS MANUEL AHMADI DPM on 01/24/2025 at 07:31 AM CDT Sign off status: Pending * Provider: Oliver Ahmadi DPM Date: 0 08/04/2024 Generated for Sara ovalle/Bowen/Aranza on: 0 01/24/2025 07:31 AM CDT History and Physical Notes * [...] debris. They are painful to palpation Neurologic Ravalli-Weinstin 5.07 monofilamen t diminished protective sensation via [...]
--- OUTSIDE RECORDS SUMMARY | 2025-01-24 07:31 | XMS_ITS ---
Author Organization [facility] Address [address] [place] [address] Phone Care Team Providers Care Powder Guard Name Role Phone Diann Crain STUDENT ADVISOR, MORTGAGE LOAN OFFICER Primary Care Provi scot Antonia Rodriguez MD Unavailable [phone] Malvin Estrada MD Unavailable [phone] Taqueria Gresham MD Unavailable Montana Lakhani MD Unavailable [phone] Active Problems Problem Noted Date Diagnosed Date [...]
--- OUTSIDE RECORDS SUMMARY | 2025-01-24 07:32 | XMS_ITS | Clinical Summary ---
Author Organization [facility] Address [address] [place] [address] Care Team Providers Care Cash Applications Specialist Name Role Phone Chu Lorenzo MD Primary [...] Sex Assigned at Female 04/29/2018 9:29 PM [employer]EROCK TOWER LOADER Legal Sex Female 5:33 PM [employer]OWER LOADER Gender Identity Female 04/29/2018 9:29 PM [employer] TOWER LOADER Sexual Orientation Straight 04/29/2018 9: 29 PM [employer] TOWER LOADER Last Filed Vital Signs Vital Sign Reading Time Taken Comments Blood Pressure 144/79 05/04/2018 1:50 PM [employer]EROCK TOWER LOADER Pulse 69 05/04/2018 1:50 PM [employer]EROCK TOWER LOADER Temperature 36.6 C (97.9 F) 05/04/2018 1:50 PM [employer]EROCK TOWER LOADER Respiratory Rate 18 05/04/2018 1:50 PM [employer]EROCK TOWER LOADER Oxygen Saturation 100% 05/04/2018 1:50 PM [employer]EROCK TOWER LOADER Inhaled Oxygen Concentration - - Weight 86.8 kg (191 lb 5.8 oz) 05/04/2018 4:43 A M [employer]OCK TOWER LOADER Height 172.7 cm (5' 8) 04/29/2018 9:12 PM [employer]EROCK TOWER LOADER Body Mass Index 29.1 04/29/2018 9:12 PM [employer]EROCK TOWER LOADER Plan of Treatment Health Maintenance Due Date [...] patient's age to complete this topic Insurance [facility] [address] Advance Directives * Full Code (Latest Code Status on File) Date Activated Date Inactivated Comments 04/29/2018 11:48 PM 05/04/2018 7:30 PM Care Teams Cash Applications Specialist Relationship Specialty Start Date End Date Chu Lorenzo MD PCP - General SURGERY 04/24/18
== END 2025-01-22 11:50 | disposition home or self-care (01) ==
LOC: CHSED 14:35 → CHS2ND 15:32
PROVIDERS: Nurse Practitioner; Admitting Provider Internal Medicine; Emergency Provider Emergency Medicine; PCP Nurse Practitioner Family; Visit Provider Internal Medicine
DX: N30.80 Other cystitis without hematuria (principal); N12 Tubulo-interstitial nephritis, not specified as acute or chronic; N13.30 Unspecified hydronephrosis; N13.4 Hydroureter; C53.9 Malignant neoplasm of cervix uteri, unspecified; E86.0 Dehydration; I12.9 Hypertensive chronic kidney disease with stage 1 through stage 4 chronic kidney disease, or unspecified chronic kidney disease; E11.22 Type 2 diabetes mellitus with diabetic chronic kidney disease; N18.9 Chronic kidney disease, unspecified; R11.2 Nausea with vomiting, unspecified; R19.7 Diarrhea, unspecified; E83.42 Hypomagnesemia; D63.1 Anemia in chronic kidney disease; Z79.899 Other long term (current) drug therapy; Z79.4 Long term (current) use of insulin; Z79.84 Long term (current) use of oral hypoglycemic drugs; Z92.3 Personal history of irradiation
CPT/HCPCS: 36415; 74176; 80053; 80069; 81001; 82607; 82728; 82746; 82948; 83540; 83550; 83605; 83735; 84100; 84484; 85025; 87040; 87086; 93005; 96361; 96365; 96366; 96367; 96375; 99285; A9270; G0378; J0744; J1815; J1956; J2405; J2550; J3475; J7030

== ENCOUNTER 2025-02-03 11:09 | Outpatient (CLI) | payer BC, SELFPAY ==
--- OUTSIDE RECORDS SUMMARY | 2025-02-03 11:15 | XMS_ITS ---
Author Organization [facility] Address [address] [place] [address] Phone Care Team Providers Care Milking Machine Technician Name Role Phone Diann Crain MERCHANDISE STOCKER, JOURNEYMAN GLAZIER Primary Care Provi scot nAtonia Rodriguez MD Unavailable [phone] Malvin Estrada MD Unavailable [phone] Taqueria Gresham MD Unavailable [phone] Montana Lakhani MD Unavailable Active Problems Problem [...]
--- OUTSIDE RECORDS SUMMARY | 2025-02-03 11:15 | XMS_ITS ---
Author Organization [facility] Address [address] [facility] [place] [address] Care Team Providers Care Packaging Mechanic Name Role Phone Diann Crain BOARD ATTENDANT-PANEL INSTALLER Primary Care Provid er Active Problems Problem Noted Date Diagnosed Date Diabetes mellitus, type 2 01/05/2025 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 x 12/27/2024 Current Treatment and Therapy Plans No current plan information found. Past Treatment and Therapy Plans No past plan information found. Radiation Treatments * Course [id number] 12/22/2024 - 01/10/2025 Treatment Period Energy Fraction Dose Fractions Total Dose Plans Planned Cervix 3000 12/22/2024 - 01/10/2025 5 / 5 3,000 cGy Reference Points Delivered
--- OUTSIDE RECORDS SUMMARY | 2025-02-03 11:15 | XMS_ITS | Clinical Summary ---
Author Organization [facility] Address [address] [place] [address] Care Team Providers Care Biometric Fingerprinting Technician Name Role Phone Diann Crain LOADERS-TENONER OPERATOR Primary Care Provid er Source Comments [facility],non-owned Affiliates and Associated Physician Practices is amultiple site organization consisting of ambulatory clinics and hospital sitesin [place], [place], [place] and [place]. This disclosure is being madepursuant to the [...] Encounters Date Type Department Care Team Description 01/26/2025 Telephone [facility] - REFERENCE ASSISTANT [address] [facility] [address] [place] [address] Antonia Rodriguez MD Side Effect 01/10/2025 9:00 AM CDT Office Visit [facility] - Rad/Onc [address] [place] [phone] Montana Lakhani MD 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 (HCC) (Primary Dx) 01/10/2025 7:22 AM CDT Anesthesia Event [facility] [address] [place] [phone] Wally Serrano MD Levin, Vitaly F, MD 01/10/2025 7:15 AM CDT - 01/10/2025 8:24 AM CDT Surgery [facility] [address] [place] [phone] Saran Troy MD [employer] PLACEMENT 01/10/2025 5:32 AM CDT - 01/10/2025 11:53 AM CDT Hospital Encounter [facility] [address] [place] [phone] Saran Troy MD Surgery General Discharge Disposition: Home or Self Care 01/10/2025 Travel 01/05/2025 9:30 AM CDT Office Visit [facility] - Rad/Onc [address] [place] [phone] Montana Lakhani MD 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 (HCC) (Primary Dx) 01/05/2025 7:25 AM CDT Anesthesia Event [facility] [address] [place] [phone] Milly Rausch MD Levin, Vitaly F, MD 01/05/2025 7:15 AM CDT - 01/05/2025 8:45 AM CDT Surgery [facility] [address] [place] [phone] Antonia Rodriguez MD PLACEMENT OF TANDEM AND RING 01/05/2025 5:10 AM CDT - 01/05/2025 12:21 PM CDT Hospital Encounter [facility] [address] [place] [phone] Antonia Rodriguez MD Surgery General Discharge Disposition: Home or Self Care 01/05/2025 Travel 01/03/2025 9:30 AM CDT Office Visit [facility] - Rad/Onc [address] [place] [phone] Montana Lakhani MD 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 (HCC) (Primary Dx) 01/03/2025 7:21 AM CDT Anesthesia Event [facility] [address] [place] [phone] Milly Rausch MD Shelby Garcia, LOADERS-REGISTERED RESPIRATORY THERAPIST 01/03/2025 7:15 AM CDT - 01/03/2025 8:24 AM CDT Surgery [facility] [address] [place] [phone] Saran Troy MD PLACEMENT OF T[employer]DEM [employer] RING 01/03/2025 5:26 AM CDT - 01/03/2025 12:20 PM CDT Hospital Encounter [facility] [address] [place] [phone] Saran Troy MD Surgery General Discharge Disposition: Home or Self Care 12/27/2024 9:30 AM CDT Office Visit [facility] - Rad/Onc [address] [place] [phone] Montana Lakhani MD 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 (HCC) (Primary Dx) 12/27/2024 7:23 AM CDT Anesthesia Event [facility] [address] [place] [phone] Milly Rausch MD 12/27/2024 7:15 AM CDT - 12/27/2024 8:15 AM CDT Surgery [facility] [address] [place] [phone] Montana Villa MD PLACEMENT OF TANDEM [employer] RINGS 12/27/2024 5:50 AM CDT - 12/27/2024 12:45 PM CDT Hospital Encounter [facility] [address] [place] [phone] Montana Villa MD Surgery General Discharge Disposition: Home or Self Care 12/27/2024 Travel 12/26/2024 Travel 12/22/2024 9:30 AM CDT Office Visit [facility] - Rad/Onc [address] [place] [phone] Montana Lakhani MD 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 (HCC) (Primary Dx) 12/22/2024 7:21 AM CDT Anesthesia Event [facility] [address] [place] [phone] Jay Jones MD [facility] 12/22/2024 7:15 AM CDT - 12/22/2024 8:21 AM CDT Surgery [facility] [address] [place] [address] Lamont Cueva MD PLACEMENT OF TANDEM [employer] RING 12/22/2024 5:42 AM CDT - 12/22/2024 12:45 PM CDT Hospital Encounter [facility] [address] [place] [address] Lamont Cueva MD Surgery General Discharge Disposition: Home or Self Care 12/22/2024 Travel 12/21/2024 Travel 12/21/2024 Telephone [facility] - REFERENCE ASSISTANT [address] [facility] [address] [place] [phone] Antonia Rodriguez MD Question 12/20/2024 Telephone [facility] - Rad/Onc [address] [place] [phone] Argentina Rosenthal RN Appointment 12/20/2024 Travel 12/19/2024 Telephone [facility] - REFERENCE ASSISTANT [address] [facility] [place] [phone] Montana Villa MD Question 12/13/2024 Telephone [facility] - Rad/Onc [address] [place] [phone] Argentina Rosenthal, RN Appointment 12/12/2024 Travel 12/02/2024 Telephone [facility] - Rad/Onc [address] [place] [phone] Argentina Rosenthal, RN Appointment 11/16/2024 1:00 PM CDT - 12/18/2024 11:59 PM CDT Hospital Encounter [facility] - Radiation Oncology [address] [place] [phone] Montana Lakhani MD Discharge Disposition: Home or Self Care 11/16/2024 1:00 PM CDT Office Visit [facility] - Rad/Onc [address] [place] [phone] Montana Lakhani MD 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 (HCC) (Primary Dx) 11/16/2024 Travel 11/04/2024 Travel from Last 3 Months Family History [...] on file Legal Sex Female 1:25 PM SUBWAY GUARD Gender Identity Not on file Sexual Orientation [...] Description 04/13/2025 11:00 AM CDT Office Visit [facility] - Rad/Onc [address] [place] [phone] Montana Lakhani MD [address] [place] [address] Health Maintenance Due Date Last Done Comments [...] MASK AIRWAY Routine 01/10/2025 7:34 AM CDT MN INSERT UTERI TANDEMS/OVOIDS 01/10/2025 7:08 AM CDT Diagnosis unknown GLUCOSE - POINT OF CARE Routine 01/10/2025 6:02 AM CDT CARDIAC RHYTHM STRIP ORDER 01/09/2025 6:21 PM CDT CARDIAC RHYTHM STRIP ORDER 01/05/2025 4:23 PM CDT GLUCOSE - POINT OF CARE Routine 01/05/2025 11:58 AM CDT GLUCOSE - POINT OF CARE Routine 01/05/2025 8:00 AM CDT MN INSERT UTERI TANDEMS/OVOIDS 01/05/2025 7:10 AM CDT [...] MASK AIRWAY Routine 01/03/2025 7:37 AM CDT MN INSERT UTERI TANDEMS/OVOIDS 01/03/2025 6:35 AM CDT [...] OF CARE Routine 12/27/2024 6:48 AM CDT MN INSERT UTERI TANDEMS/OVOIDS 12/27/2024 6:45 AM CDT Diagnosis unknown CARDIAC RHYTHM STRIP ORDER 12/26/2024 6:38 PM CDT RAD ONC ARIA SESSION SUMMARY Routine 12/22/2024 11:27 AM CDT GLUCOSE - POINT OF CARE Routine 12/22/2024 8:10 AM CDT CULTURE URINE STAT 12/22/2024 7:44 AM CDT Diagnosis unknown ENDOTRACHEAL TUBE NOTE Routine 12/22/2024 7:38 AM CDT MN INSERT UTERI TANDEMS/OVOIDS 12/22/2024 7:06 AM CDT [...] Summary (01/10/2025 10:42 AM CDT) Course ID [id number] xTnO RAD ONC TREATMENT Course First Treatment Date 12/22/2024 11:26 AM RAD ONC TREATMENT Plan ID Cervix 3000 RAD ONC TREATMENT Plan Fractions Treated to Date 5 RAD ONC TREATMENT Plan Total Fractions Prescribed 5 RAD ONC TREATMENT Plan Total Prescribed Dose 3000 cGy RAD ONC TREATMENT 01/10/2025 10:4 2 AM CDT Provider Unknown RADIATION ONCOLOGY ORDERABLES F inal Result Performing Organization Address City/[facility]/ZIP Co de Phone Number RAD ONC TREATMENT * Rad Onc Aria Session Summary (01/10/2025 10:42 AM CDT) Course ID [id number] xTnO RAD ONC TREATMENT Course First Treatment Date 12/22/2024 11:26 AM RAD ONC TREATMENT Plan ID Cervix 3000 RAD ONC TREATMENT Plan Fractions Treated to Date 4 RAD ONC TREATMENT Plan Total Fractions Prescribed 5 RAD ONC TREATMENT Plan Total Prescribed Dose 3000 cGy RAD ONC TREATMENT 01/10/2025 10:4 2 AM CDT Provider Unknown RADIATION ONCOLOGY ORDERABLES F inal Result RAD ONC TREATMENT * (ABNORMAL) GLUCOSE - POINT OF CARE (01/10/2025 8:08 AM CDT) Only the most recent of11 resultswithin the time period is included. Glucose WB/POC 116(H) 70 - 99 mg/dL 01/10/2025 8:14 AM CDT [facility] Specimen Type Arterial/C apillary 01/10/2025 8:14 AM CDT [facility] Blood BLOOD SPECIMEN / Unknown 01/10/2025 8:08 AM CDT 01/10/2025 8:14 AM CDT Saran Troy MD LAB - POINT OF CARE ORDERABLES Final Result [facility] [address] [place] [address] * LARYNGEAL MASK AIRWAY (01/10/2025 7:34 AM CDT) Narrative Wnada Rey APRN-CRNA - 01/10/2025 7:34 AM CDT [...] Summary (01/03/2025 11:22 AM CDT) Course ID [id number] xTnO RAD ONC TREATMENT Course First Treatment Date 12/22/2024 11:26 AM RAD ONC TREATMENT Plan ID Cervix 3000 RAD ONC TREATMENT Plan Fractions Treated to Date 3 RAD ONC TREATMENT Plan Total Fractions Prescribed 5 RAD ONC TREATMENT Plan Total Prescribed Dose 3000 cGy RAD ONC TREATMENT 01/03/2025 11:2 2 AM CDT us Provider Unknown RADIATION ONCOLOGY ORDERABLES F inal Result Performing Organization Address [facility]/ZIP Co de Phone Number RAD ONC TREATMENT * Rad Onc Aria Session Summary (01/03/2025 11:21 AM CDT) Course ID [id number] xTnO RAD ONC TREATMENT Course First Treatment [...] F inal Result RAD ONC TREATMENT * CULTURE URINE (01/03/2025 7:52 AM CDT) Only the most recent of2 resultswithin the time period is included. Culture Urine No growth (<100 CFU/mL) [place] 01/04/2025 3:15 PM CDT [facility] MICROBIOLOGY Urine URINE SPECIMEN COLLECTION, CATHETERIZED / Unknown Collection / Unknown 01/03/2025 7:52 AM CDT 01/03/2025 8:41 AM CDT Comment:Pre-op diagnosis: Diagnosis unknown [R69] Saran Troy MD LAB - MICROBIOLOGY ORDERABLES Final Result Performing Organization Address [facility] de Phone Number [facility] MICROBIOLOGY [address] [place] [address], [facility] [phone] * LARYNGEAL MASK AIRWAY (01/03/2025 7:37 AM CDT) Narrative Shelby Garcia APRN-CRNA - 01/03/2025 7:37 AM CDT Shelby Garcia [...] 01/03/2025 7:29 AM. Staff Section Anesthesia Provider: Shelyb Garcia APRN-CRNA, Performed the procedure Provider #1: [...] Yes Staff Section Anesthesia Provider: Elier Vidales APRN-CRNA Performed the procedure Milly Rausch MD GENERAL ANESTHESIA ORDERABL ES Final Result * (ABNORMAL) HGB HCT PANEL (12/27/2024 6:49 AM CDT) Pathologist [facility] Hemoglobin 10.7(L) 11.9 - 15.8 g/dL 12/27/2024 7:06 AM CDT [facility] Hematocrit 30.2(L) 34.8 - 46.1 % 12/27/2024 7:06 AM CDT [facility] Blood BLOOD SPECIMEN / Unknown Venipuncture / Unknown 12/27/2024 6:49 AM CDT 12/27/2024 7:03 AM CDT Jerry Deleon MD LAB - HEMATOLOGY ORDERABLES Teresa l Result [facility] [address] [place] [address] * Rad Onc Aria Session Summary (12/22/2024 11:27 AM CDT) Course ID [id number] xTnO RAD ONC TREATMENT Course First Treatment [...] F inal Result RAD ONC TREATMENT * ETT LINE PERFORMABLE (12/22/2024 7:38 AM CDT) Narrative José Antonio Child APRN-CRNA - 12/22/2024 7:38 AM CDT José Antonio Child APRN-CRNA 12/22/2024 7:40 AM Endotracheal Tube Placement: Patient Location: OR. Intubation Event Date/Time: 12/22/2024 7:27 AM Procedure: intubation ([id number]) Procedure Section: Sedation: under general anesthesia. Indications [...] inal Result from Last 3 Months Insurance ANTH BCBS/BLUE BLUE CR[employer] BLUE [place]ELD [place] Care Teams Biometric Fingerprinting Technician Relationship Specialty Start Date End Date Diann Crain, LOADERS-TENONER OPERATOR [address] [place] [address] PCP - General Nurse Practitioner Family 09/15/24
--- OUTSIDE RECORDS SUMMARY | 2025-02-03 11:15 | XMS_ITS | Clinical Summary ---
Author Organization [facility] Address [address] [place] [address] Phone Care Team Providers Care Inventory Audit Clerk Name Role Phone DavidbeatrisDiann REGIONAL TRANSPORTATION MANAGER, NEWSPAPER CLIPPER Primary Care Provi scot Antonia Rodriguez MD Unavailable [phone] Malvin Estrada MD Unavailable Taqueira Gresham MD Unavailable [phone] Montana Lakhani MD Unavailable [phone] Allergies Active Allergy Reactions Criticality Noted Date [...] for nausea 30 Tablet 2 5 Active OLANZapine (ZyPREXA) 5 MG TabletIndicati ons:Cervical cancer, FIGO stage IIB (HCC) Take 1 Tablet by mouth See Admin Instructions. Take one tablet nightly for 4 nights, starting the night prior to chemotherapy. Repeat every 7 days for 6 cycles 24 Tablet 5 Active gabapentin (NEURONTIN) 300 MG Capsule TAKE 1 CAPSULE BY MOUTH EVERY DAY AT NIGHT 30 Capsule 1 5 Active prochlorperazi ne (COMPAZINE) 10 MG TabletIndicati ons:Cervical cancer, FIGO stage IIB (HCC) Take 1 Tablet by mouth every 6 hours as needed for Nausea - 2nd line. Take one tablet every 6 hours as needed for nausea. 30 Tablet 2 5 Active prochlorperazi ne (COMPAZINE) 10 MG TabletIndicati ons:Cervical cancer, FIGO stage IIB (HCC) Take 1 Tablet by mouth every 6 hours as needed for Nausea - 2nd line. Take one tablet every 6 hours as needed for nausea. 30 Tablet 2 5 025 Discontin ued(Reord er) Active Problems Problem Noted Date Diagnosed Date [...] 5 11/28/2024. Controlled type 2 diabetes m elielitus without complication, with long-term current use of insulin 10/10/2024 Resolved Problems Problem Noted Date Diagnosed Date Resolved Date Malignant neoplasm of overla pping sites of cervix 11/08/2024 11/21/2024 Vagina bleeding 10/10/2024 10/19/2024 Encounters Date Type Department Care Team Description 01/30/2025 Telephone [facility] On[facility] [address] [place] [phone] Taqueria Gresham MD 01/26/2025 Telephone [facility] Oncology Services [address] [place] [address] Taqueria Gresham MD Care Management (Please see dictated note.) 01/26/2025 Telephone [facility] Oncology Services [address] [place] [phone] Malvin Estrada MD 01/20/2025 Travel 01/20/2025 Telephone [facility] [address] [place] [phone] Malvin Estrada MD 01/19/2025 Telephone [facility] [address] [place] [phone] Malvin Estrada MD 12/31/2024 Refill [facility] [address] [place] [phone] Malvin Estrada MD Medication Refill 12/23/2024 Telephone [facility] [address] [place] [phone] Bryanna Smith APRN, NEWSPAPER CLIPPER 12/19/2024 Telephone [facility] [address] [place] [phone] Malvin Estrada MD 12/19/2024 Telephone [facility] [address] [place] [phone] Malvin Estrada MD 12/12/2024 8:30 AM CDT Clinical Support [facility] [address] [place] [address] Bryanna Smith, AME, NEWSPAPER CLIPPER Cervical cancer, FIGO stage IB (HCC) (Primary Dx); Cervical cancer, FIGO stage IIB (HCC); Dysuria Discharge Disposition: Discharged to home or Selfcare 12/12/2024 8:15 AM CDT Office Visit [facility] Oncology Services [address] [place] [phone] Bryanna Smith APRN, CNP Cervical cancer, FIGO stage IB (HCC) (Primary Dx); History of therapeutic radiation; History of cancer chemotherapy; Dysuria; Chemotherapy induced diarrhea; Chemotherapy-induced nausea Discharge Disposition: Discharged to home or Selfcare 12/12/2024 Travel 12/10/2024 Travel 12/07/2024 Documentation Only [facility] Oncology Services [address] [place] [phone] Yanet Black, RD 12/05/2024 9:00 AM CDT Clinical Support [facility] Oncology Services [address] [place] [phone] Malvin Estrada MD Cervical cancer, FIGO stage IB (HCC) (Primary Dx); Cervical cancer, FIGO stage IIB (HCC) Discharge Disposition: Discharged to home or Selfcare 12/05/2024 9:00 AM CDT Office Visit [facility] Oncology Services [address] [place] [phone] Taqueria Gresham MD Butler, David Ferrell, MD Cervical cancer, FIGO stage IIB (HCC) (Primary Dx); Encounter for radiotherapy; Patient on combined chemotherapy and radiation Discharge Disposition: Discharged to home or Selfcare 12/05/2024 8:45 AM CDT Clinical Support [facility] Oncology Services [address] [place] [phone] Taqueria Gresham MD History of therapeutic radiation (Primary Dx); History of cancer chemotherapy; Cervical cancer, FIGO stage IB (HCC) Discharge Disposition: Discharged to home or Selfcare 12/05/2024 Travel 12/03/2024 Travel 12/02/2024 10:00 AM CDT Clinical Support [facility] Oncology Services [address] [place] [phone] Taqueria Gresham MD Discharge Disposition: Discharged to home or Selfcare 12/02/2024 Travel 12/01/2024 10:00 AM CDT Clinical Support [facility] Oncology Services [address] [place] [phone] Taqueria Gresham MD Discharge Disposition: Discharged to home or Selfcare 12/01/2024 Travel 11/30/2024 10:00 AM CDT Clinical Support [facility] Oncology Services [address] [place] [phone] Taqueria Gresham MD Discharge Disposition: Discharged to home or Selfcare 11/30/2024 Travel 11/29/2024 10:00 AM CDT Clinical Support [facility] Oncology Services [address] [place] [phone] Taqueria Gresham MD Discharge Disposition: Discharged to home or Selfcare 11/29/2024 Travel 11/28/2024 10:15 AM CDT Office Visit [facility] Oncology Services [address] [place] [phone] Taqueria Gresham MD Encounter for radiotherapy (Primary Dx); Patient on combined chemotherapy and radiation; Cervical cancer, FIGO stage IIB (HCC); Loose stools Discharge Disposition: Discharged to home or Selfcare 11/28/2024 10:00 AM CDT Clinical Support [facility] Oncology Services [address] [place] [phone] Taqueria Gresham MD Discharge Disposition: Discharged to home or Selfcare 11/28/2024 9:00 AM CDT Clinical Support [facility] Oncology Services [address] [place] [phone] Malvin Estrada MD Cervical cancer, FIGO stage IIB (HCC) (Primary Dx); Cervical cancer, FIGO stage IB (HCC) Discharge Disposition: Discharged to home or Selfcare 11/28/2024 Travel 11/27/2024 Travel 11/26/2024 Travel 11/25/2024 10:00 AM CDT Clinical Support [facility] Oncology Services [address] [place] [phone] Taqueria Gresham MD Discharge Disposition: Discharged to home or Selfcare 11/25/2024 Travel 11/24/2024 11:00 AM CDT Clinical Support [facility] Oncology Services [address] [place] [phone] Taqueria Gresham MD Cervical cancer, FIGO stage IIB (HCC) (Primary Dx); Diarrhea, unspecified type Discharge Disposition: Discharged to home or Selfcare 11/24/2024 10:00 AM CDT Documentation Only [facility] Services [address] [place] [phone] Taqueria Gresham MD Cervical cancer, FIGO stage IIB (HCC) Discharge Disposition: Discharged to home or Selfcare 11/24/2024 Travel 11/23/2024 10:00 AM CDT Clinical Support [facility] Oncology Services [address] [place] [phone] Malvin Estrada MD Diarrhea, unspecified type (Primary Dx) Discharge Disposition: Discharged to home or Selfcare 11/23/2024 10:00 AM CDT Clinical Support [facility] Oncology Services [address] [place] [phone] Taqueria Gresham MD Discharge Disposition: Discharged to home or Selfcare 11/23/2024 9:15 AM CDT [facility] [address] [place] [phone] Malvin Estrada MD Baxley, Brandy M, APRN, NELIDA Cervical cancer, FIGO stage IIB (HCC) (Primary Dx); Neuralgic pain; Diarrhea, unspecified type Discharge Disposition: Discharged to home or Selfcare 11/23/2024 Travel 11/22/2024 10:00 AM CDT Clinical Support [facility] Oncology Services [address] [place] [phone] Taqueria Gresham MD Discharge Disposition: Discharged to home or Selfcare 11/22/2024 Travel 11/21/2024 10:15 AM CDT Office Visit [facility] Oncology Services [address] [place] [phone] Taqueria Gresham MD Encounter for radiotherapy (Primary Dx); Patient on combined chemotherapy and radiation; Cervical cancer, FIGO stage IIB (HCC); Loose stools Discharge Disposition: Discharged to home or Selfcare 11/21/2024 10:00 AM CDT Clinical Support [facility] Oncology Services [address] [place] [phone] Taqueria Gresham MD Discharge Disposition: Discharged to home or Selfcare 11/21/2024 9:00 AM CDT Clinical Support [facility] Oncology Services [address] [place] [phone] Malvin Estrada MD Cervical cancer, FIGO stage IIB (HCC) (Primary Dx) Discharge Disposition: Discharged to home or Selfcare 11/21/2024 Travel 11/19/2024 Travel 11/18/2024 10:00 AM CDT Clinical Support [facility] Oncology Services [address] [place] [phone] Taqueria Gresham MD Discharge Disposition: Discharged to home or Selfcare 11/18/2024 Travel 11/17/2024 10:00 AM CDT Clinical Support [facility] Oncology Services [address] [place] [phone] Taqueria Gresham MD Discharge Disposition: Discharged to home or Selfcare 11/17/2024 Travel 11/16/2024 10:00 AM CDT Clinical Support [facility] Oncology Services [address] [place] [phone] Taqueria Gresham MD Discharge Disposition: Discharged to home or Selfcare 11/16/2024 Travel 11/15/2024 10:00 AM CDT Clinical Support [facility] Oncology Services [address] [place] [phone] Taqueria Gresham MD Discharge Disposition: Discharged to home or Selfcare 11/15/2024 9:00 AM CDT Clinical Support [facility] Oncology Services [address] [place] [phone] Malvin Estrada MD Cervical cancer, FIGO stage IB (HCC) (Primary Dx); Cervical cancer, FIGO stage IIB (HCC) Discharge Disposition: Discharged to home or Selfcare 11/15/2024 Travel 11/14/2024 10:15 AM CDT Office Visit [facility] Oncology Services [address] [place] [phone] Taqueria Gresham MD Encounter for radiotherapy (Primary Dx); Patient on combined chemotherapy and radiation; Cervical cancer, FIGO stage IIB (HCC) Discharge Disposition: Discharged to home or Selfcare 11/14/2024 10:00 AM CDT Clinical Support [facility] Oncology Services [address] [place] [phone] Taqueria Gresham MD Discharge Disposition: Discharged to home or Selfcare 11/14/2024 Travel 11/13/2024 Travel 11/12/2024 Travel 11/11/2024 10:00 AM CDT Clinical Support [facility] Oncology Services [address] [place] [phone] Taqueria Gresham MD Discharge Disposition: Discharged to home or Selfcare 11/11/2024 Travel 11/10/2024 10:00 AM CDT Clinical Support [facility] Oncology Services [address] [place] [phone] Taqueria Gresham MD Discharge Disposition: Discharged to home or Selfcare 11/10/2024 Travel 11/09/2024 10:00 AM CDT Clinical Support [facility] Oncology Services [address] [place] [phone] Taqueria Gresham MD Discharge Disposition: Discharged to home or Selfcare 11/09/2024 Travel 11/08/2024 10:15 AM CDT Office Visit [facility] Oncology Services [address] [place] [phone] Taqueria Gresham MD Encounter for radiotherapy (Primary Dx); Patient on combined chemotherapy and radiation; Cervical cancer, FIGO stage IIB (HCC); Vagina bleeding Discharge Disposition: Discharged to home or Selfcare 11/08/2024 10:00 AM CDT Clinical Support [facility] Oncology Services [address] [place] [phone] Taqueria Gresham MD Discharge Disposition: Discharged to home or Selfcare 11/08/2024 9:40 AM CDT Office Visit [facility] Oncology Services [address] [place] [phone] Malvin Estrada MD 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 (HCC) (Primary Dx); Controlled type 2 diabetes mellitus without complication, with long-term current use of insulin; Chemotherapy induced diarrhea; Cervical cancer, FIGO stage IIB (HCC); Neuralgic pain Discharge Disposition: Discharged to home or Selfcare 11/08/2024 9:00 AM CDT Clinical Support [facility] [address] [place] [phone] Malvin Estrada MD Cervical cancer, FIGO stage IIB (HCC) (Primary Dx) Discharge Disposition: Discharged to home or Selfcare 11/08/2024 Travel 11/07/2024 Travel 11/06/2024 Travel 11/04/2024 10:00 AM CDT Clinical Support [facility] Oncology Services [address] [place] [phone] Taqueria Gresham MD Discharge Disposition: Discharged to home or Selfcare 11/04/2024 Travel 11/03/2024 10:00 AM CDT Clinical Support [facility] Oncology Services [address] [place] [phone] Taqueria Gresham MD Discharge Disposition: Discharged to home or Selfcare 11/03/2024 Travel from Last 3 Months Family History [...] 03/14/2025 9:30 AM CDT Office Visit [facility] Oncology Services [address] [place] [phone] Barry Martin MD [address] [place] [phone] Discharge Disposition: Discharged to home or Selfcare [...] SESSION SUMMARY Routine 11/03/2024 10:15 AM CDT [facility] COLONOSCOPY 10/12/2024 12:00 AM CDT from Last 3 Months or Most Recently Relevant to Health Maintenance Results * (ABNORMAL) URINALYSIS REFLEX IF INDICATED BY ABNORMAL RESULTS (12/12/2024 9:43 AM CDT) SPECIFIC GRAVITY 1.010 1.003 - 1.030 12/12/2024 10:11 AM CDT [facility] URINE PH 6.5 5.0 - 9.0 12/12/2024 10:11 AM CDT [facility] WBC ESTERASE 25 /ul(A) Negative 12/12/2024 10:11 AM CDT [facility] NITRITE Negative Negative 12/12/2024 10:11 AM CDT [facility] PROTEIN, RANDOM URINE 500 mg/dL(A) Negative 12/12/2024 10:11 AM CDT [facility] URINE GLUCOSE, QUAL Negative Negative 12/12/2024 10:11 AM CDT [facility] URINE KETONES 15 mg/dL(A) Negative 12/12/2024 10:11 AM CDT [facility] UROBILINOGEN Normal Normal mg/dL 12/12/2024 10:11 AM CDT [facility] URINE BLOOD 150 /uL(A) Negative debbie/ul 12/12/2024 10:11 AM CDT [facility] URINALYSIS COLOR Yellow 12/13/19 25 10:11 AM CDT [facility] URINALYSIS CLARITY Very Cloudy 12/12/2024 10:11 AM CDT [facility] WBC (Urine) 51-150(A) Negative, 0-5 /hpf 12/12/2024 10:11 AM CDT [facility] URINE RBC'S 51-150(A) Negative, 0-2 /hpf 12/12/2024 10:11 AM CDT [facility] EPITHELIAL CELLS Moderate amount /lpf 12/12/2024 10:11 AM CDT [facility] BACTERIA, URINE Few(A) Negative /hpf 12/12/2024 10:11 AM CDT [facility] Urine URINE SPECIMEN OBTAINED BY CLEAN CATCH PROCEDURE / Unknown Non-Phlebotomy Collection / Unknown 12/12/2024 9:43 AM CDT 12/12/2024 9:43 AM CDT us Bryanna Smith APRN, NEWSPAPER CLIPPER URINE ORDERABLES Final Result [facility] [address] [place] [address] * CULTURE, URINE (12/12/2024 9:43 AM CDT) CULTURE RESULTS GROUP B STREPTOCOCCUS 12/14/2024 8:58 AM CDT [facility] CULTURE RESULTS Also mixed growth of distal urethral contaminants 12/14/2024 8:58 AM CDT [facility] Urine URINE SPECIMEN OBTAINED BY CLEAN [...] <=0.5 mcg/ml: Susceptible us Bryanna Smith APRN, NELIDA MICROBIOLOGY - GENERAL ORDERABLES Final Result [facility] [address] [place] [address], [place] * (ABNORMAL) CBC WITH AUTO DIFFERENTIAL (12/12/2024 8:36 AM CDT) Only the most recent of7 resultswithin the time period is included. WBC 1.92(L) 4.00 - 12.00 10(3)/mcL 12/12/2024 9:06 AM T [facility] RBC 3.18(L) 3.80 - 5.30 10(6)/mcL 12/12/2024 9:06 AM [facility] HEMOGLOBIN (HGB) 8.8(L) 12.0 - 15.8 g/dL 12/12/2024 9:06 AM T [facility] HEMATOCRIT (HCT) 26.3(L) 36.0 - 47.0 % 12/12/2024 9:06 AM T [facility] MCV 82.7 82.0 - 96.0 fL 12/12/2024 9:06 AM [facility] MCH 27.7 26.0 - 34.0 pg 12/12/2024 9:06 AM [facility] MCHC 33.5 31.0 - 36.0 g/dL 12/12/2024 9:06 AM [facility] PLATELET COUNT 94(L) 140 - 440 10(3)/mcL 12/12/2024 9:06 AM [facility] RDW 14.8 11.8 - 15.5 % 12/12/2024 9:06 AM [facility] MPV 8.7(L) 9.7 - 12.4 fL 12/12/2024 9:06 AM T [facility] NEUTROPHILS 70.3 47.0 - 73.0 % 12/12/2024 9:06 AM [facility] LYMPHOCYTES 5.7(L) 18.0 - 42.0 % 12/12/2024 9:06 AM [facility] MONOCYTES 14.6(H) 4.0 - 12.0 % 12/12/2024 9:06 AM [facility] EOSINOPHILS 7.8(H) 0.0 - 5.0 % 12/12/2024 9:06 AM CDT [facility] BASOPHILS 1.6(H) 0.0 - 1.0 % 12/12/2024 9:06 AM CDT [facility] IMMATURE GRANULOCYTE 0.0 0.0 - 0.4 % 12/12/2024 9:06 AM CDT [facility] Comment:Immature Granulocyte s includes Metamyelocytes, Myelocytes, and Promyelocytes. ABSOLUTE NEUTROPHILS 1.35(L) 1.60 - 7.70 10(3)/mcL 12/12/2024 9:06 AM CDT [facility] ABSOLUTE LYMPHOCYTES 0.11(L) 1.30 - 3.20 10(3)/mcL 12/12/2024 9:06 AM CDT [facility] ABSOLUTE MONOCYTES 0.28 0.20 - 1.00 10(3)/mcL 12/12/2024 9:06 AM CDT [facility] ABSOLUTE EOSINOPHIL 0.15 0.00 - 0.40 10(3)/[facility] 12/12/2024 9:06 AM CDT [facility] ABSOLUTE BASOPHILS 0.03 0.00 - 0.10 10(3)/mcL 12/12/2024 9:06 AM CDT [facility] ABSOLUTE IMMATURE GRANULOCYTE 0.00 0.00 - 0.03 10 (3) mcL. 12/12/2024 9:06 AM CDT [facility] NRBC PER 100 WBC 0 12/13/19 25 9:06 AM CDT [facility] RESULTS ARE CONSISTENT WITH PERIPHERAL SMEAR REVIEW Yes 12/12/2024 9:06 AM CDT [facility] Blood Venipuncture / Unknown 12/12/2024 8:36 AM CDT 12/12/2024 8:36 AM CDT us Malvin Estrada MD HEMATOLOGY ORDERABLES Fi nal Result [facility] [address] [place] [address] * (ABNORMAL) MAGNESIUM (MG) (12/12/2024 8:36 AM CDT) Only the most recent of5 resultswithin the time period is included. Pathologist [facility] [place] MAGNESIUM 1.4(L) 1.6 - 2.6 mg/dL 12/12/2024 9:13 AM CDT [facility] Blood Venipuncture / Unknown 12/12/2024 8:36 AM CDT 12/12/2024 8:36 AM CDT us Malvin Estrada MD CHEMISTRY ORDERABLES Fin al Result [facility] [address] [place] [address] * (ABNORMAL) CMP (COMPREHENSIVE METABOLIC PANEL) (12/12/2024 8:36 AM CDT) Only the most recent of7 resultswithin the time period is included. Pathologist [facility] [place] SODIUM 134(L) 136 - 145 mmol/L 12/12/2024 9:13 AM CDT [facility] POTASSIUM 3.9 3.5 - 5.1 mmol/L 12/12/2024 9:13 AM CDT [facility] CHLORIDE 100 98 - 107 mmol/L 12/12/2024 9:13 AM CDT [facility] CO2, VENOUS 24 22 - 30 mmol/L 12/12/2024 9:13 AM CDT [facility] ANION GAP 13.9 <18.0 mmol/L 12/12/2024 9:13 AM CDT [facility] GLUCOSE 104(H) 70 - 99 mg/dL 12/12/2024 9:13 AM CDT [facility] BUN 13 10 - 20 mg/dL 12/12/2024 9:13 AM CDT [facility] CREATININE, BLOOD 1.12(H) 0.60 - 1.00 mg/dL 12/12/2024 9:13 AM CDT [facility] BUN/CREATININE RATIO 12 12 - 20 ratio 12/12/2024 9:13 AM [facility] TOTAL PROTEIN 6.3 6.0 - 8.0 g/dL 12/12/2024 9:13 AM [facility] ALBUMIN 3.7 3.5 - 5.0 g/dL 12/12/2024 9:13 AM [facility] A/G RATIO 1.4 1.0 - 2.2 12/12/2024 9:13 AM [facility] CALCIUM 8.6(L) 8.7 - 10.5 mg/dL 12/12/2024 9:13 AM [facility] T BILI 0.4 0.2 - 1.2 mg/dL 12/12/2024 9:13 AM [facility] SGOT (AST) 17 <43 U/L 12/12/2024 9:13 AM [facility] SGPT (ALT) <6 <56 U/L 12/12/2024 9:13 AM [facility] ALKALINE PHOSPHATASE 36(L) 40 - 150 U/L 12/12/2024 9:13 AM [facility] IS THE PATIENT REQUIRED TO BE FASTING? No 12/12/2024 9:13 AM [facility] GFR, ESTIMATED 55(L) >=60 12/12/2024 9:13 AM [facility] Comment: Creatinine Clearance is the preferred criteria for selecting drug dose adjustments in renally impaired patients. The GFR is provided as additional pertinent clinical information. GFR is reported in mL/min/1.73 sq m. Calculation based on the Chronic Kidney Disease Epidemiology Collaboration (CKD- EPI) equation refit without adjustment for race. GFR, EST. 59(L) >=60 025 9:13 AM [facility] GFR, EST. NONAFRICAN 49(L) >=60 12/12/2024 9:13 AM [facility] Blood Venipuncture / Unknown 12/12/2024 8:36 AM CDT 12/12/2024 8:36 AM CDT us Malvin Estrada MD CHEMISTRY ORDERABLES Fin al Result [facility] [address] [place] [address] * RAD ONC ARIA COURSE SUMMARY (12/07/2024 [...] F inal Result [facility] [address] [place] [address] * RAD ONC ARIA SESSION SUMMARY (12/05/2024 [...] F inal Result [facility] [address] [place] [address] * RAD ONC ARIA SESSION SUMMARY (12/02/2024 [...] ORDERABLES F inal Result Performing Organization Address [facility] Co de Phone Number [facility] [address] [place] [address] * RAD ONC ARIA SESSION SUMMARY (12/01/2024 [...] ORDERABLES F inal Result Performing Organization Address [facility] Co de Phone Number [facility] [address] [place] [address] * RAD ONC ARIA SESSION SUMMARY (11/30/2024 [...] ORDERABLES F inal Result Performing Organization Address [facility] Co de Phone Number [facility] [address] [place] [address] * RAD ONC ARIA SESSION SUMMARY (11/29/2024 [...] ORDERABLES F inal Result Performing Organization Address [facility] Co de Phone Number [facility] [address] [place] [address] * RAD ONC ARIA SESSION SUMMARY (11/28/2024 [...] ORDERABLES F inal Result Performing Organization Address City/State/[facility] Co de Phone Number [facility] [address] [place] [address] * RAD ONC ARIA SESSION SUMMARY (11/25/2024 [...] F inal Result [facility] [address] [place] [address] * C. DIFF BY PCR (11/25/2024 10:11 AM CDT) C DIFF TOXIN DNA BY PCR Negative Negative, Invalid 11/25/2024 11:19 AM CDT [facility] Other STOOL SPECIMEN / Unknown Non-Phlebotomy Collection / Unknown 11/25/2024 10:11 AM CDT 11/25/2024 10:11 AM CDT us Bryanna Smith APRN, [employer]SP[employer]ER CLIPPER MICROBIOLOGY - GENERAL ORDERABLES Final Result [facility] [address] [place] [address] * RAD ONC ARIA SESSION SUMMARY (11/24/2024 [...] ORDERABLES F inal Result Performing Organization Address [facility] Co de Phone Number ARIA RO MODEL [address] [place] [address] * RAD ONC ARIA SESSION SUMMARY (11/23/2024 [...] ORDERABLES F inal Result Performing Organization Address [facility] Co de Phone Number ARIA RO MODEL [address] [place] [address] * RAD ONC ARIA SESSION SUMMARY (11/22/2024 [...] ORDERABLES F inal Result Performing Organization Address City/State/[facility] Co de Phone Number ARIA RO MODEL [address] [place] [address] * RAD ONC ARIA SESSION SUMMARY (11/21/2024 [...] ORDERABLES F inal Result Performing Organization Address [facility] Co de Phone Number ARIA RO MODEL [address] [place] [address] * RAD ONC ARIA SESSION SUMMARY (11/18/2024 [...] ORDERABLES F inal Result Performing Organization Address [facility] Co de Phone Number ARIA RO MODEL [address] [place] [address] * RAD ONC ARIA SESSION SUMMARY (11/17/2024 [...] ORDERABLES F inal Result Performing Organization Address [facility] Co de Phone Number ARIA RO MODEL [address] [place] [address] * RAD ONC ARIA SESSION SUMMARY (11/16/2024 [...] ORDERABLES F inal Result Performing Organization Address [facility] Co de Phone Number ARIA RO MODEL [address] [place] [address] * RAD ONC ARIA SESSION SUMMARY (11/15/2024 [...] ORDERABLES F inal Result Performing Organization Address City/State/[facility] Co de Phone Number ARIA RO MODEL [address] [place] [phone] * RAD ONC ARIA SESSION SUMMARY (11/14/2024 [...] ORDERABLES F inal Result Performing Organization Address City/[facility]/ZIP Co de Phone Number ARIA RO MODEL [address] [place] [address] * RAD ONC ARIA SESSION SUMMARY (11/11/2024 [...] ORDERABLES F inal Result Performing Organization Address City/[facility]/ZIP Co de Phone Number ARIA RO MODEL [address] [place] [address] * RAD ONC ARIA SESSION SUMMARY (11/10/2024 [...] ORDERABLES F inal Result Performing Organization Address City/State/[facility] Co de Phone Number ARIA RO MODEL [address] [place] [address] * RAD ONC ARIA SESSION SUMMARY (11/09/2024 [...] ORDERABLES F inal Result Performing Organization Address [facility] Co de Phone Number ARIA RO MODEL [address] [place] [address] * RAD ONC ARIA SESSION SUMMARY (11/08/2024 [...] ORDERABLES F inal Result Performing Organization Address [facility] de Phone Number ARIA RO MODEL [address] [place] [address] * RAD ONC ARIA SESSION SUMMARY (11/04/2024 [...] ORDERABLES F inal Result Performing Organization Address [facility] Co de Phone Number ARIA RO MODEL [address] [place] [address] * RAD ONC ARIA SESSION SUMMARY (11/03/2024 [...] ORDERABLES F inal Result Performing Organization Address City/[facility] Co de Phone Number ARIA RO MODEL [address] [place] [address] * HM COLONOSCOPY (10/12/2024 12:00 AM CDT) 10/12/2024 us Provider Scan PROCEDURE/MINOR SURGICAL ORDERAB LES Final Result SCAN from Last 3 Months or Most Recently Relevant to Health Maintenance Insurance [facility] Care Teams Inventory Audit Clerk Relationship Specialty Start Date End Date Diann Crain, REGIONAL TRANSPORTATION MANAGER, NEWSPAPER CLIPPER [address] [place] [address] PCP - General Advanced Practice Nurse 10/10/24 Antonia Rodriguez MD [address] [address] Consulting Physician Gynecologic Oncology 10/11/24 Malvin Estrada MD [address] [place] [address] Consulting Physician Medical Oncology 10/11/24 Taqueria Gresham MD [address] [place] [address] Consulting Physician Radiation Oncology 10/11/24 Montana Lakhani MD [address] [place] [address] Consulting Physician Radiation Oncology 10/12/24
[2025-02-03 11:33] LABS: Appearance Urine Clear (Clear); Glucose Urine UA Trace (Negative); Hematocrit 24.9 % (35.0-49.0); Hemoglobin 7.9 g/dL (12.0-15.0); Leukocyte Esterase Ur 3+ LEU/UL (Negative); Mean Corpuscular HGB Conc 31.7 g/dL (32-36); Mean Corpuscular Hemoglobin 29.8 pg (27.0-31.0); Mean Corpuscular Volume 94.0 fL (78.0-102.0); Nitrate Urine Positive (Negative); Platelet Count Result 162 K/mm3 (150-420); Red Blood Count 2.65 M/mm3 (4.20-5.40); Specific Grav Ur 1.010 (1.010-1.020); White Blood Count 6.6 K/mm3 (4.8-10.8)
[2025-02-03 11:42] LABS: Alanine Aminotransferase 17 U/L (6-35); Albumin Level 3.6 g/dL (3.5-5.1); Alkaline Phosphatase 45 U/L (38-126); Anion Gap 6 mmol/L (4-12); Aspartate Amino Transferase 31 U/L (14-36); Bilirubin,Total 0.4 mg/dL (0.2-1.3); Blood Urea Nitrogen 19 mg/dL (7-17); Calcium 9.0 mg/dL (8.4-10.2); Carbon Dioxide 28 mmol/L (22-30); Chloride 100 mmol/L (98-107); Estimated Glomerular Filt Rate > 60; Glucose 121 mg/dL (65-110); Lipase 95 U/L (23-300); Magnesium 1.5 mg/dL (1.6-2.3); Osmolality Calculated 281 mOsm/kg (285-295); Potassium 4.5 mmol/L (3.4-5.0); Sodium 134 mmol/L (137-145); Total Protein 6.1 g/dL (6.3-8.2)
[2025-02-03 11:43] LABS: Add Urine Microscopic? YES
[2025-02-03 11:54] LABS: Troponin I 0.013 ng/mL (0.000-0.034)
[2025-02-03 12:05] LABS: Band Neutrophils Percent 2 % (0-6); Basophils Absolute Manual 0.00 K/mm3 (0-0.1); Basophils Percent Manual 0 % (0-1); Eosinophils Absolute Manual 0.00 K/mm3 (0.02-0.50); Eosinophils Percent Manual 0 % (1-6); Lymphocytes Absolute Manual 0.39 K/mm3 (1.1-4.5); Lymphocytes Percent Manual 6 % (18-44); Metamyelocytes Percent 3 %; Monocytes Absolute Manual 0.59 K/mm3 (0.1-0.90); Monocytes Percent Manual 9 % (3-9); Myelocytes Percent 1 %; Neutrophils Absolute Manual 5.34 K/mm3 (1.3-6.7); Neutrophils Percent Manual 79 % (46-73); Total Cells Counted 100
[2025-02-03 12:07] LABS: MALB Creatinine Ratio 281.9 mg/g (0-30)
[2025-02-03 12:08] LABS: Hemoglobin A1C < 4.7 % (<5.7)
[2025-02-03 16:32] LABS: Iron 69 ug/dL (37-170)
[2025-02-03 16:43] LABS: Percent Iron Saturation 27 % (20-50)
== END 2025-02-03 11:10 | disposition home or self-care (01) ==
LOC: CHSLAB 11:12
PROVIDERS: PCP Nurse Practitioner Family; Visit Provider Nurse Practitioner Family
DX: R11.2 Nausea with vomiting, unspecified (principal); R53.1 Weakness; R22.43 Localized swelling, mass and lump, lower limb, bilateral; N12 Tubulo-interstitial nephritis, not specified as acute or chronic; N30.80 Other cystitis without hematuria; E11.9 Type 2 diabetes mellitus without complications; R79.89 Other specified abnormal findings of blood chemistry; D64.9 Anemia, unspecified
CPT/HCPCS: 36415; 80053; 81001; 82043; 83036; 83540; 83550; 83690; 83735; 84484; 85025; 87086; 87186

== ENCOUNTER 2025-02-23 11:20 | Outpatient (CLI) | payer BC, SELFPAY ==
[2025-02-23 11:56] LABS: Hemoglobin A1C < 4.7 % (<5.7)
== END 2025-02-23 11:21 | disposition home or self-care (01) ==
LOC: CHSLAB 11:21
PROVIDERS: PCP Nurse Practitioner Family; Visit Provider Nurse Practitioner Family
DX: E11.9 Type 2 diabetes mellitus without complications (principal); R80.9 Proteinuria, unspecified
CPT/HCPCS: 36415; 83036

== ENCOUNTER 2025-02-24 08:31 | Outpatient (CLI) | payer BC, SELFPAY ==
--- OUTSIDE RECORDS SUMMARY | 2024-08-04 08:00 | XMS_ITS ---
Author Organization [facility] Address [address] [place], [place] [id number] Care Team Providers Care Nail Technician Name Role Phone DAIANA JESUS MANUEL Unavailable [phone] Diann Crain Unavailable Unavailable Allergies Allergen (clinical [...] Date End Date Status Magnesium 300 MG 1 capsule with a marciano l Orally Once a day Active Metoclopramide HCl 5 MG/ML 1 mL before m eals Injection Twice a day Active Pantoprazole Sodium 20 MG 1 tablet 1/2 t o 1 hour before morning meal Orally Once a day Active Metformin ER & Diagnostic Test Active Social History Sex Assigned At : Social History Observation Description Sex Assigned At Female Encounters Encounter Location Date Provider Diagnosis [address] [id number] 08/04/2024 JESUS MANUEL AHMADI Tinea unguium B35.1 ; Pain in right toe(s) M79.674 ; Pain in left toe(s) M79.675 ; Atherosclerosis of [place] arteries of extremities with intermittent claudication, bilateral [...] toe(s) (ICD-10 - M79.675) 08/04/2024 Atherosclerosis of [place] arteries of extremities with intermittent claudication, bilateral [...] sooner if problems develop. Provider Name:AZUCENA ANDRADE, 04/27/2025 10:50:00 AM, [address] [place] [address], [id number], Progress Notes * Ida GRANDE RDOB: (64 yo F)Acc No.[id number]:08/04/2024 Progress Notes Patient: Ida KNOWLES Provider: Oliver Ahmadi DPM :1960 A ge:63 Y S ex:Female Date:08/04/2024 Address:[address] [facility], [address] [facility], [facility] Subjective: * Chief Complaints: * 1 . Patient presents for at-risk foot care . The patient has painful toenails that are causing difficulty with ambulation and shoegear. The onset is gradual. The patient has diabetes mellitus. * HPI: H PI: New Complaint Aixa nick presents for a new patient consultation. Patient recently found out she is diabetic and thought that this was best. Aixa nick presents to the office for diabetic foot care. Patient states that their nails are thickened, elongated and painful. Patient states that it is aggravated by shoe gear. Onset is gradual., P park denies taking blood thinners., D ate last seen by Dr. Breann gama as 07/2024., I nittho [facility]. * ROS: G eneral / Constitutional: Patient denies c hills, fever, weight loss. ? M usculoskeletal: Patient denies w eakness, broken foot bone. ? P eripheral Vascular: Patient complains of d ecreased sensation in extremities.? S kin: Patient complains of f ungal nails, nail changes. ? N eurologic: Patient denies b alance difficulty, confusion, difficulty speaking, dizziness. * Medical History: N europathy, Arthritis, Diabetic, Varicose veins. * Surgical History: D enies Past Surgical History. * Hospitalization/Major Diagno stic Procedure: D enies Past Hospitalization. * Family History: N o Family History documented.. * Medications: T aking Magnesium 300 MG Capsule 1 capsule with a meal Orally Once a day , Taking Metoclopramide HCl 5 MG/ML Solution 1 mL before meals Injection Twice a day , Taking Pantoprazole Sodium 20 MG Tablet Delayed Release 1 tablet 1/2 to 1 hour before morning meal Orally Once a day , Taking Metformin ER & Diagnostic Test , Medication List reviewed and reconciled with the patient * Allergies: S ulfa Antibiotics: Allergy, Penicillin: Allergy, Erythromycin: Allergy. Objective: * Vitals: * Examination: P hysical Examination: General appearance: [...] Edema: N o edema bilateral. N eurologic: Plaza-We[place] 5.07 monofilament d iminished protective sensation via [...] - M79.675 4 . A therosclerosis of [place] arteries of extremities with intermittent claudication, bilateral [...] At-Risk Foot care, sooner if problems develop.) * Billing Information: * Visit Code: 85536 Office Visit, New Pt., Level 3. * Procedure Codes: * Electronic signature of JESUS MANUEL AHMADI DPM on 02/24/2025 at 08:39 AM CDT Sign off status: Pending * Provider: Oliver Ahmadi DPM Date: 0 08/04/2024 Generated for Sara ovalle/Bowen/Farheenitting on: 0 02/24/2025 08:39 AM CDT History and Physical Notes * HPI (History [...] debris. They are painful to palpation Neurologic Plaza-Weinstin 5.07 monofilamen t diminished protective sensation via [...]
--- OUTSIDE RECORDS SUMMARY | 2024-12-08 04:50 | XMS_ITS ---
Author Organization [facility] Address [address] [place], [place] [address] Care Team Providers Care Front Counter Clerk Name Role Phone JESUS MANUEL AHMADI Unavailable [phone] Diann Crain Unavailable Unavailable JESUS MANUEL ORTEGA Unavailable [phone] REASON FOR VISIT *General care, sick Social History Sex Assigned At : Social History Observation Description Sex Assigned At Female Encounters Encounter Location Date Provider Diagnosis [facility] [place] [address] [facility] [address] [place], [place] [phone] 12/08/2024 JESUS MANUEL ORTEGA Plan Of Treatment Next Appt Details Provider Name:AZUCENA ANDRADE, 04/27/2025 10:50:00 AM, [address] [place] [address], [phone], Progress Notes * Ida GRANDE RDOB: (64 yo F)Acc No.[id number]:12/08/2024 Patient: Sarah Ida MINER Provider: Oliver Ortega DPM :1960 A ge:64 Y S ex:Female Date:12/08/2024 Address:[address] [facility], [address] [place], [place] Subjective: * Chief Complaints: * 1 . *General care, sick. * Medical History: Objective: * Vitals: Assessment: Plan: * Treatment: * Billing Information: * Visit Code: * Procedure Codes: * Electronic signature of JESUS MANUEL ORTEGA DPM on 02/24/2025 at 08:39 AM CDT Sign off status: Pending * Provider: Oliver Ortega DPM Date: 0 12/08/2024 Generated for Sara ovalle/Bowen/Aranza on: 0 02/24/2025 08:39 AM CDT
--- OUTSIDE RECORDS SUMMARY | 2025-02-23 06:40 | XMS_ITS ---
Author Organization [facility] Address [address] [place], [place] [id number] Care Team Providers Care Edge Brusher Name Role Phone JESUS MANUEL AHMADI Unavailable [phone] Diann Crain Unavailable Unavailable AZUCENA MYLES Unavailable [phone] Allergies Allergen (clinical drug ingredient) Drug/Non Drug [...] Date Status metFORMIN HCl ER 500 MG 500 MG ORALLY TW ICE A DAY Oral; Duration: 45 Days Active Insulin Glargine-yfgn 100 UNIT/ML 15 UNIT (0.15 ML) SUBCUTANEOUSLY EVERY EVENING Subcutaneous; Duration: 90 Days Active Docusate Sodium 100 MG TAKE 1 CAPSULE BY MOUTH TWICE A DAY Oral; Duration: 30 Days Active OneTouch Verio - TWICE A DAY In Vitro ; Duration: 25 Days Active Ibuprofen 600 MG TAKE 1 TABLET BY NEHEMIAH EVERY 6 HOURS NEEDED FOR PAIN Oral; Duration: 10 Days Active Metoclopramide HCl 5 MG/ML 1 mL before m eals Injection Twice a day Active Pantoprazole Sodium 20 MG 1 tablet 1/2 t o 1 hour before morning meal Orally Once a day Active Magnesium 300 MG 1 [...] 02/23/2025 Encounters Encounter Location Date Provider Diagnosis [address] [id number] 02/23/2025 AZUCENA MYLES Atherosclerosis of [place] arteries of extremities with intermittent claudication, bilateral legs I70.213 ; Onychomycosis B35.1 ; Pain in right toe(s) M79.674 and Pain in left toe(s) M79.675 Assessments Encounter Date Diagnosis (ICD Code) Assessment Notes Treatment Notes Treatment Clinical Notes Section Notes 02/23/2025 Atherosclerosis of [place] arteries of extremities with intermittent claudication, bilateral [...] Treatment Treatment Notes Assessment Notes Atherosclerosis of [place] ar teries of extremities with intermittent claudication, [...] Up: 9 weeks, Reason: Provider Name:AZUCENA ANDRADE, 04/27/2025 10:50:00 AM, [address] [place] [address], [id number], Progress Notes * Ida GRANDE RDOB: 1 (64 yo F)Acc No.[id number]:02/23/2025 Patient: Ida KNOWLES Provider: Jeff MYLES :1960 A ge:64 Y S ex:Female Date:02/23/2025 Address:[address] [facility], [address] [place], [place] [address] Subjective: * Chief Complaints: * 1 . *General care. * HPI: H PI: General care P [...] Taking Metformin ER & Diagnostic Test , Taking FreeStyle Kim 3 Sensor - Miscellaneous , Taking OneTouch Verio - Strip TWICE A DAY In Vitro , Taking Ibuprofen 600 MG Tablet TAKE 1 TABLET BY MOUTH EVERY 6 HOURS NEEDED FOR PAIN Oral , Taking Docusate Sodium 100 MG Capsule TAKE 1 CAPSULE BY MOUTH TWICE A DAY Oral , Taking metFORMIN HCl ER 500 MG Tablet Extended Release 24 Hour 500 MG ORALLY TWICE A DAY Oral , Taking Insulin Glargine-yfgn 100 UNIT/ML Solution Pen-injector 15 UNIT (0.15 ML) SUBCUTANEOUSLY EVERY EVENING Subcutaneous , Medication List reviewed and reconciled with the patient * Allergies: S ulfa Antibiotics: Allergy, Penicillin: Allergy, Erythromycin: Allergy, Amoxicillin: Rash - Criticality Unknown - Onset Date 04/29/2018. Objective: * Vitals: S hoe Size: 8.5, [...] B35.1 (Primary) 2 . A therosclerosis of [place] arteries of extremities with intermittent claudication, bilateral legs - I70.213 3 . P ain in right toe(s) - M79.674 4 . P ain in left toe(s) - M79.671 Plan: * Treatment: 2. A therosclerosis of [place] arteries of extremities with intermittent claudication, bilateral legs Notes: Patient educated on risks and aggravating factors of PVD, including conservative treatment options such as a diet and exercise regimen to aid in slowing progression of vascular disease. Check and protect LE bilateral daily. Call if any changes or concerns. * Follow Up: 9 weeks * Billing Information: * Visit Code: * Procedure Codes: * Electronic signature of LIZZY MYLES DPM on 02/24/2025 at 08:39 AM CDT Sign off status: Pending * Provider: Jeff MYLES Date: 02/23/2025 Generated for Sara ovalle/Bowen/Aranza on: 0 02/24/2025 08:39 AM CDT History [...]
--- OUTSIDE RECORDS SUMMARY | 2025-02-24 08:39 | XMS_ITS | Clinical Summary ---
Author Organization [facility] Address [address] [place] [address] Phone Care Team Providers Care Curator Herbarium Name Role Phone DavidbeatrisDiann COMPUTER SYSTEMS SOFTWARE ENGINEER, MUD WORKER Primary Care Provi scot Antonia Rodriguez MD Unavailable [phone] Malvin Estrada MD Unavailable [phone] Taqueria Gresham MD Unavailable [phone] Montana Lakhani MD Unavailable [phone] Allergies Active Allergy Reactions Criticality Noted Date [...] 5 Active ondansetron (ZOFRAN-ODT) 8 MG TABLET DISPERSIBLEIndi cations:Cervica l cancer, FIGO stage IIB (HCC) Take 1 Tablet by mouth every 8 hours as needed for Nausea - 1st line. Take one tablet every 8 hours as needed for nausea 30 Tablet 2 5 Active OLANZapine (ZyPREXA) 5 MG TabletIndicatio ns:Cervical cancer, FIGO stage IIB (HCC) Take 1 Tablet by mouth See Admin Instructions. Take one tablet nightly for 4 nights, starting the night prior to chemotherapy. Repeat every 7 days for 6 cycles 24 Tablet 5 Active gabapentin (NEURONTIN) 300 MG Capsule TAKE 1 CAPSULE BY MOUTH EVERY DAY AT NIGHT 30 Capsule 1 5 Active prochlorperazin e (COMPAZINE) 10 MG TabletIndicatio ns:Cervical cancer, FIGO stage IIB (HCC) Take 1 Tablet by mouth every 6 hours as needed for Nausea - 2nd line. Take one tablet every 6 hours as needed for nausea. 30 Tablet 2 5 Active Active Problems Problem Noted Date [...] Type Department Care Team Description 01/30/2025 [facility]phone [facility] [address] [place] [address] Taqueria Gresham MD 01/26/2025 Telephone [facility] [address] [place] [address] Taqueria Gresham MD Care Management (Please see dictated note.) 01/26/2025 [facility]phone [facility] [address] [place] [address] Malvin Estrada MD 01/20/2025 Travel 01/20/2025 Telephone [facility] [address] [place] [address] Malvin Estrada MD 01/19/2025 [facility]phone [facility] [address] [place] [address] Malvin Estrada MD 12/31/2024 Refill [facility] [address] [place] [address] Malvin Estrada MD Medication Refill 12/23/2024 Telephone [facility] [address] [place] [phone] Bryanna Smith, AME, MUD WORKER 12/19/2024 Telephone [facility] [address] [place] [address] Malvin Estrada MD 12/19/2024 [facility]phone [facility] [address] [place] [phone] Malvin Estrada MD 12/12/2024 8:30 AM CDT Clinical Support [facility] [address] [place] [address] Bryanna Smith, COMPUTER SYSTEMS SOFTWARE ENGINEER, MUD WORKER Cervical cancer, FIGO stage IB (HCC) (Primary Dx); Cervical cancer, FIGO stage IIB (HCC); Dysuria Discharge Disposition: Discharged to home or Selfcare 12/12/2024 8:15 AM CDT [facility] [address] [place] [address] Bryanna Smith APRN, CNP Cervical cancer, FIGO stage IB (HCC) (Primary Dx); History of therapeutic radiation; History of cancer chemotherapy; Dysuria; Chemotherapy induced diarrhea; Chemotherapy-induced nausea Discharge Disposition: Discharged to home or Selfcare 12/12/2024 Travel 12/10/2024 Travel 12/07/2024 Documentation Only [facility] [address] [place] [phone] Yanet Black, BARI 12/05/2024 9:00 AM CDT Clinical Support [facility] [address] [place] [phone] Malvin Estrada MD Cervical cancer, FIGO stage IB (HCC) (Primary Dx); Cervical cancer, FIGO stage IIB (HCC) Discharge Disposition: Discharged to home or Selfcare 12/05/2024 9:00 AM CDT Office Visit [facility] [address] [place] [phone] Taqueria Gresham MD Butler, David Ferrell, MD Cervical cancer, FIGO stage IIB (HCC) (Primary Dx); Encounter for radiotherapy; Patient on combined chemotherapy and radiation Discharge Disposition: Discharged to home or Selfcare 12/05/2024 8:45 AM CDT Clinical Support [facility] [address] [place] [phone] Taqueria Gresham MD History of therapeutic radiation (Primary Dx); History of cancer chemotherapy; Cervical cancer, FIGO stage IB (HCC) Discharge Disposition: Discharged to home or Selfcare 12/05/2024 Travel 12/03/2024 Travel 12/02/2024 10:00 AM CDT Clinical Support [facility] [address] [place] [phone] Taqueria Gresham MD Discharge Disposition: Discharged to home or Selfcare 12/02/2024 Travel 12/01/2024 10:00 AM CDT Clinical Support [facility] [address] [place] [phone] Taqueria Gresham MD Discharge Disposition: Discharged to home or Selfcare 12/01/2024 Travel 11/30/2024 10:00 AM CDT Clinical Support [facility] [address] [place] [phone] Taqueria Gresham MD Discharge Disposition: Discharged to home or Selfcare 11/30/2024 Travel 11/29/2024 10:00 AM CDT Clinical Support [facility] [address] [place] [phone] Taqueria Gresham MD Discharge Disposition: Discharged to home or Selfcare 11/29/2024 Travel 11/28/2024 10:15 AM CDT Office Visit [facility] [address] [place] [phone] Taqueria Gresham MD Encounter for radiotherapy (Primary Dx); Patient on combined chemotherapy and radiation; Cervical cancer, FIGO stage IIB (HCC); Loose stools Discharge Disposition: Discharged to home or Selfcare 11/28/2024 10:00 AM CDT Clinical Support [facility] [address] [place] [phone] Taqueria Gresham MD Discharge Disposition: Discharged to home or Selfcare 11/28/2024 9:00 AM CDT Clinical Support [facility] [address] [place] [phone] Malvin Estrada MD Cervical cancer, FIGO stage IIB (HCC) (Primary Dx); Cervical cancer, FIGO stage IB (HCC) Discharge Disposition: Discharged to home or Selfcare 11/28/2024 Travel 11/27/2024 Travel 11/26/2024 Travel 11/25/2024 10:00 AM CDT [facility] [address] [place] [phone] Taqueria Gresham MD Discharge Disposition: Discharged to home or Selfcare 11/25/2024 Travel 11/24/2024 11:00 AM CDT [facility] [address] [place] [phone] Taqueria Gresham MD Cervical cancer, FIGO stage IIB (HCC) (Primary Dx); Diarrhea, unspecified type Discharge Disposition: Discharged to home or Selfcare 11/24/2024 10:00 AM CDT Documentation Only [facility] [address] [place] [phone] Taqueria Gresham MD Cervical cancer, FIGO stage IIB (HCC) Discharge Disposition: Discharged to home or Selfcare 11/24/2024 Travel from Last 3 Months Family History [...] 9:30 AM CDT Office Visit [facility] [address] [place] [address] Barry Martin MD [address] [place] [phone] Discharge Disposition: Discharged to home or Selfcare Health Maintenance Due Date Last Done Comments Diabetes: Eye Exam 1960 Diabetes: Foot Exam 1960 Diabetes: Hemoglobin A1c 1960 Hepatitis C Virus (HCV) Screening 1960 Mammogram 1960 Pneumococcal Immunization (50+ years) (1 of 2 - PCV) 10/04/1979 Zoster Immunization (1 of 2) 10/04/1979 Cologuard 2005 Immunochemical Fecal Occult Blood 2005 Influenza Immunization (#1) 2025 02/0 10/2024, 05/28/2023, 05/06/2022, Additional history exists SARS-COV-2 Immunization ( season) 2025 05/28/2023, 05/06/2022, 06/29/2021, Additional history exists Diabetes: Nephropathy Screening 12/12/2025 [...] SESSION SUMMARY Routine 11/24/2024 10:48 AM CDT HM COLONOSCOPY 10/12/2024 12:00 AM CDT from Last 3 Months or Most Recently Relevant to Health Maintenance Results * (ABNORMAL) URINALYSIS REFLEX IF INDICATED BY ABNORMAL RESULTS (12/12/2024 9:43 AM CDT) SPECIFIC GRAVITY 1.010 1.003 - 1.030 12/12/2024 10:11 AM CDT [facility] URINE PH 6.5 5.0 - 9.0 12/12/2024 10:11 AM CDT [facility] WBC ESTERASE 25 /ul(A) Negative 12/12/2024 10:11 AM CDT [facility] NITRITE Negative Negative 12/12/2024 10:11 AM CDT [facility] PROTEIN, RANDOM URINE 500 mg/dL(A) Negative 12/12/2024 10:11 AM CDT [facility] URINE GLUCOSE, QUAL Negative Negative 12/12/2024 10:11 AM CDT [facility] URINE KETONES 15 mg/dL(A) Negative 12/12/2024 10:11 AM CDT [facility] UROBILINOGEN Normal Normal mg/dL 12/12/2024 10:11 AM CDT [facility] URINE BLOOD 150 /uL(A) Negative debbie/ul 12/12/2024 10:11 AM CDT [facility] URINALYSIS COLOR Yellow 12/13/19 10:11 AM CDT [facility] URINALYSIS CLARITY Very Cloudy 12/12/2024 10:11 AM CDT [facility] WBC (Urine) 51-150(A) Negative, 0-5 /hpf 12/12/2024 10:11 AM CDT [facility] URINE RBC'S 51-150(A) Negative, 0-2 /hpf 12/12/2024 10:11 AM CDT [facility] EPITHELIAL CELLS Moderate amount /lpf 12/12/2024 10:11 AM CDT [facility] BACTERIA, URINE Few(A) Negative /hpf 12/12/2024 10:11 AM CDT [facility] Urine URINE SPECIMEN OBTAINED BY CLEAN CATCH PROCEDURE / Unknown Non-Phlebotomy Collection / Unknown 12/12/2024 9:43 AM CDT 12/12/2024 9:43 AM CDT us Bryanna Smith COMPUTER SYSTEMS SOFTWARE ENGINEER, MUD WORKER URINE ORDERABLES Final Result [facility] [address] [place] [address] * CULTURE, URINE (12/12/2024 9:43 AM CDT) CULTURE RESULTS GROUP B STREPTOCOCCUS 12/14/2024 8:58 AM CDT [facility] CULTURE RESULTS Also mixed growth of distal urethral contaminants 12/14/2024 8:58 AM CDT [facility] Urine URINE SPECIMEN OBTAINED BY CLEAN CATCH PROCEDURE / Unknown Non-Phlebotomy Collection / Unknown 12/12/2024 9:43 AM CDT 12/12/2024 9:43 AM CDT Narrative Organism Antibiotic Method Susceptibility Streptococcus agalactiae Ampicillin [facility] IIB <=0.25 mcg/ml: Susceptible Streptococcus agalactiae Benzylpenicillin [facility] I IB <=0.12 mcg/ml: Susceptible Streptococcus agalactiae Levofloxacin [facility] IIB 1 mcg/ml: Susceptible Streptococcus agalactiae Vancomycin [facility] VITEK IIB <=0.5 mcg/ml: Susceptible us Bryanna Smith APRN, MUD WORKER MICROBIOLOGY - GENERAL ORDERABLES Final Result [facility] [address] [place] [address], [place] * (ABNORMAL) CBC WITH AUTO DIFFERENTIAL (12/12/2024 8:36 AM CDT) Only the most recent of4 resultswithin the time period is included. WBC 1.92(L) 4.00 - 12.00 10(3)/mcL 12/12/2024 9:06 AM CDT [facility] RBC 3.18(L) 3.80 - 5.30 10(6)/mcL 12/12/2024 9:06 AM CDT [facility] HEMOGLOBIN (HGB) 8.8(L) 12.0 - 15.8 g/dL 12/12/2024 9:06 AM CDT [facility] HEMATOCRIT (HCT) 26.3(L) 36.0 - 47.0 % 12/12/2024 9:06 AM CDT [facility] MCV 82.7 82.0 - 96.0 fL 12/12/2024 9:06 AM CDT [facility] MCH 27.7 26.0 - 34.0 pg 12/12/2024 9:06 AM CDT [facility] MCHC 33.5 31.0 - 36.0 g/dL 12/12/2024 9:06 AM CDT [facility] PLATELET COUNT 94(L) 140 - 440 10(3)/mcL 12/12/2024 9:06 AM CDT [facility] RDW 14.8 11.8 - 15.5 % 12/12/2024 9:06 AM CDT [facility] MPV 8.7(L) 9.7 - 12.4 fL 12/12/2024 9:06 AM CDT [facility] NEUTROPHILS 70.3 47.0 - 73.0 % 12/12/2024 9:06 AM CDT [facility] LYMPHOCYTES 5.7(L) 18.0 - 42.0 % 12/12/2024 9:06 AM CDT [facility] MONOCYTES 14.6(H) 4.0 - 12.0 % 12/12/2024 9:06 AM T [facility] EOSINOPHILS 7.8(H) 0.0 - 5.0 % 12/12/2024 9:06 AM CDT [facility] BASOPHILS 1.6(H) 0.0 - 1.0 % 12/12/2024 9:[address] [facility] IMMATURE GRANULOCYTE 0.0 0.0 - 0.4 % 12/12/2024 9:[address] [facility] Comment:Immature Granulocyte s includes Metamyelocytes, Myelocytes, and Promyelocytes. ABSOLUTE NEUTROPHILS 1.35(L) 1.60 - 7.70 10(3)/mcL 12/12/2024 9:06 AM CDT [facility] ABSOLUTE LYMPHOCYTES 0.11(L) 1.30 - 3.20 10(3)/mcL 12/12/2024 9:[address] [facility] ABSOLUTE MONOCYTES 0.28 0.20 - 1.00 10(3)/mcL 12/12/2024 9:[address] [facility] ABSOLUTE EOSINOPHIL 0.15 0.00 - 0.40 10(3)/mcL 12/12/2024 9:[address] [facility] ABSOLUTE BASOPHILS 0.03 0.00 - 0.10 10(3)/mcL 12/12/2024 9:[address] [facility] ABSOLUTE IMMATURE GRANULOCYTE 0.00 0.00 - 0.03 10 (3) mcL. 12/12/2024 9:[address] [facility] NRBC PER 100 WBC 0 12/13/19 9:[address] [facility] RESULTS ARE CONSISTENT WITH PERIPHERAL SMEAR REVIEW Yes 12/12/2024 9:[address] [facility] Blood Venipuncture / Unknown 12/12/2024 8:36 AM CDT 12/12/2024 8:36 AM CDT Malvin Estrada MD HEMATOLOGY ORDERABLES Fi nal Result Performing Organization Address [facility] Co de Phone Number [facility] [address] [place] [address] * (ABNORMAL) MAGNESIUM (MG) (12/12/2024 8:36 AM CDT) Only the most recent of3 resultswithin the time period is included. MAGNESIUM 1.4(L) 1.6 - 2.6 mg/dL 12/12/2024 9:13 AM CDT [facility] Blood Venipuncture / Unknown 12/12/2024 8:36 AM CDT 12/12/2024 8:36 AM CDT Malvin Estrada MD CHEMISTRY ORDERABLES Fin al Result Performing Organization Address [facility] de Phone Number [facility] [address] [place] [address] * (ABNORMAL) CMP (COMPREHENSIVE METABOLIC PANEL) (12/12/2024 8:36 AM CDT) Only the most recent of4 resultswithin the time period is included. SODIUM 134(L) 136 - 145 mmol/L 12/12/2024 9:13 AM CDT [facility] POTASSIUM 3.9 3.5 - 5.1 mmol/L 12/12/2024 9:13 AM CDT [facility] CHLORIDE 100 98 - 107 mmol/L 12/12/2024 9:13 AM CDT [facility] CO2, VENOUS 24 22 - 30 mmol/L 12/12/2024 9:13 AM CDT [facility] ANION GAP 13.9 <18.0 mmol/L 12/12/2024 9:13 [facility] GLU[facility] 104(H) 70 - 99 mg/dL 12/12/2024 9:13 AM T [facility] BUN 13 10 - 20 mg/dL 12/12/2024 9:[address] [facility] CREATININE, BLOOD 1.12(H) 0.60 - 1.00 mg/dL 12/12/2024 9:[address] [facility] BUN/CREATININE RATIO 12 12 - 20 ratio 12/12/2024 9:[address] [facility] TOTAL PROTEIN 6.3 6.0 - 8.0 g/dL 12/12/2024 9:[address] [facility] ALBUMIN 3.7 3.5 - 5.0 g/dL 12/12/2024 9:[address] [facility] A/G RATIO 1.4 1.0 - 2.2 12/12/2024 9:[address] [facility] CALCIUM 8.6(L) 8.7 - 10.5 mg/dL 12/12/2024 9:[address] [facility] T BILI 0.4 0.2 - 1.2 mg/dL 12/12/2024 9:[address] [facility] SGOT (AST) 17 <43 U/L 12/12/2024 9:[address] [facility] SGPT (ALT) <6 <56 U/L 12/12/2024 9:[address] [facility] ALKALINE PHOSPHATASE 36(L) 40 - 150 U/L 12/12/2024 9:[address] [facility] IS THE PATIENT REQUIRED TO BE FASTING? No 12/12/2024 9:[address] [facility] GFR, ESTIMATED 55(L) >=60 12/12/2024 9:[address] [facility] Comment: Creatinine Clearance is the preferred criteria for selecting drug dose adjustments in renally impaired patients. The GFR is provided as additional pertinent clinical information. GFR is reported in mL/min/1.73 sq m. Calculation based on the Chronic Kidney Disease Epidemiology Collaboration (CKD- EPI) equation refit without adjustment for race. GFR, EST. 59(L) >=60 025 9:13 AM CDT [facility] GFR, EST. NONAFRICAN 49(L) >=60 12/12/2024 9:13 AM CDT [facility] Blood Venipuncture / Unknown 12/12/2024 8:36 AM CDT 12/12/2024 8:36 AM CDT us Malvin Estrada MD CHEMISTRY ORDERABLES Fin al Result [facility] [address] [place] [address] * RAD ONC ARIA COURSE SUMMARY (12/07/2024 [...] F inal Result [facility] [address] [facility] [place] [address] * RAD ONC ARIA SESSION SUMMARY (12/05/2024 [...] F inal Result [facility] [address] [place] [address] * RAD ONC ARIA SESSION SUMMARY (12/02/2024 [...] ORDERABLES F inal Result Performing Organization Address [facility] Co de Phone Number [facility] [address] [place] [address] * RAD ONC ARIA SESSION SUMMARY (12/01/2024 [...] ORDERABLES F inal Result Performing Organization Address [facility] Co de Phone Number [facility] [address] [place] [address] * RAD ONC ARIA SESSION SUMMARY (11/30/2024 [...] F inal Result [facility] [address] [place] [address] * RAD ONC ARIA SESSION SUMMARY (11/29/2024 [...] ORDERABLES F inal Result Performing Organization Address [facility] Co de Phone Number [facility] [address] [place] [address] * RAD ONC ARIA SESSION SUMMARY (11/28/2024 [...] ORDERABLES F inal Result Performing Organization Address [facility] Co de Phone Number [facility] [address] [place] [address] * RAD ONC ARIA SESSION SUMMARY (11/25/2024 [...] ORDERABLES F inal Result Performing Organization Address City/[facility]/ZIP Co de Phone Number [facility] [address] [place] [address] * C. DIFF BY PCR (11/25/2024 10:11 AM CDT) C DIFF TOXIN DNA BY PCR Negative Negative, Invalid 11/25/2024 11:19 AM CDT [facility] Other STOOL SPECIMEN / Unknown Non-Phlebotomy Collection / Unknown 11/25/2024 10:11 AM CDT 11/25/2024 10:11 AM CDT us Bryanna Smith APRN, MUD WORKER MICROBIOLOGY - GENERAL ORDERABLES Final Result [facility] [address] [place] [address] * RAD ONC ARIA SESSION SUMMARY (11/24/2024 [...] F inal Result [facility] [address] [facility] [place] [address] * COLONOSCOPY (10/12/2024 12:00 AM CDT) 10/12/2024 us Provider Scan PROCEDURE/MINOR SURGICAL ORDERAB LES Final Result SCAN from Last 3 Months or Most Recently Relevant to Health Maintenance Insurance [facility] [email or web address]] Care Teams Curator Herbarium Relationship Specialty Start Date End Date Diann Crain, COMPUTER SYSTEMS SOFTWARE ENGINEER, MUD WORKER [address] [place] [address] PCP - General Advanced Practice Nurse 10/10/24 Antonia Rodriguez MD [address] [address] Consulting Physician Gynecologic Oncology 10/11/24 Malvin Estrada MD [address] [place] [address] Consulting Physician Medical Oncology 10/11/24 Taqueria Gresham MD [address] [place] [address] Consulting Physician Radiation Oncology 10/11/24 Montana Lakhani MD [address] [place] [address] Consulting Physician Radiation Oncology 10/12/24
--- OUTSIDE RECORDS SUMMARY | 2025-02-24 08:39 | XMS_ITS | Patient Health Record ---
Author Organization [facility] Address [address] [place], [place] [address] Care Team Providers Care Veneer Sample Maker Name Role Phone JESUS MANUEL AHMADI Unavailable [phone] Diann Crain Unavailable Unavailable JESUS MANUEL MCDONOUGH Unavailable [phone] AZUCENA MYLES Unavailable [phone] Allergies Allergen (clinical drug ingredient) Drug/Non Drug [...] marciano l Orally Once a day Active metFORMIN HCl ER 500 MG 500 [...] TH EVERY 6 HOURS NEEDED FOR PAIN Oral; Duration: 10 Days Active Metformin ER & Diagnostic Test Active FreeStyle Kim 3 Sensor - ; Duration: 14 Days Active Social History Tobacco Use: Social History Observation Description Date Details (start date - stop date) Never Smoker NA - NA Sex Assigned At : Social History Observation Description Sex Assigned At Female Tobacco Control (Standard) Question Answer Notes Tobacco use: Nonsmoker Vital Signs Height-cm 172.72 cm 02/23/2025 Weight-kg 72.58 kg 02/23/2025 Height 68 in 02/23/2025 Weight 160 lbs 02/23/2025 BMI 24.33 kg/m2 02/23/2025 Encounters Encounter Location Date Provider Diagnosis [address] [id number] 08/04/2024 JESUS MANUEL AHMADI Tinea unguium B35.1 ; Pain in right toe(s) M79.674 ; Pain in left toe(s) M79.675 ; Atherosclerosis of chitina arteries of extremities with intermittent claudication, bilateral legs I70.213 and Type 2 diabetes mellitus with other circulatory complications E11.[address] [id number] 02/23/2025 AZUCENA MYLES Atherosclerosis of chitina arteries of extremities with intermittent claudication, bilateral legs I70.213 ; Onychomycosis B35.1 ; Pain in right toe(s) M79.674 and Pain in left toe(s) M79.675 [facility] [place] [address] [place], [place] [id number] 10/06/2024 JESUS MANUEL MCDONOUGH Atherosclerosis of chitina arteries of extremities with intermittent claudication, bilateral [...] subungual debris and necrotic tissue removed 10/06/2024 Onychomycosis (ICD-10 - B35.1) Nails 1-5 Bilateral were debrided extensively with nail nippers and emery board, reducing length and girth to pink healthy tissue with any subungual debris and necrotic tissue removed 02/23/2025 Atherosclerosis of chitina arteries of extremities with intermittent claudication, bilateral legs (ICD-10 - I70.213) Patient educated on risks and aggravating factors of PVD, including conservative treatment options such as a diet and exercise regimen to aid in slowing progression of vascular disease. Check and protect LE bilateral daily. Call if any changes or concerns. 10/06/2024 Atherosclerosis of chitina arteries of extremities with intermittent claudication, bilateral legs (ICD-10 - I70.213) 02/23/2025 Onychomycosis (ICD-10 - B35.1) Nails 1-5 Bilateral were debrided extensively with nail nippers and emery board, reducing length and girth to pink healthy tissue with any subungual debris and necrotic tissue removed 10/06/2024 Pain in right toe(s) (ICD-10 - M79.674) 02/23/2025 Pain in right toe(s) (ICD-10 - M79.674) 08/04/2024 Pain in right toe(s) (ICD-10 - M79.674) 08/04/2024 Pain in left toe(s) (ICD-10 - M79.675) 02/23/2025 Pain in left toe(s) (ICD-10 - M79.675) 10/06/2024 Pain in left toe(s) (ICD-10 - M79.675) 08/04/2024 Atherosclerosis of chitina arteries of extremities with intermittent claudication, bilateral [...] Details Provider Name:AZUCENA ANDRADE, 04/27/2025 10:50:00 AM, [address] [place] [address], [phone], Insurance Providers Payer Name Payer Address Payer Phone Subscriber Number Group Number Insured Name Patient Relationship to Insured Coverage Start Date Coverage End Date [facility] ([facility] ATTN CLAIMS [address] [place] [address] [id number] [place] Self - patient is the insured Medical (General) History Medical History History ICD Code neuropathy Arthritis Diabetic varicose veins
--- OUTSIDE RECORDS SUMMARY | 2025-02-24 08:39 | XMS_ITS | Clinical Summary ---
Author Organization [facility] Address [address] [facility] [place] [address] Care Team Providers Care Dental Aide Name Role Phone Diann Crain BACTERIOLOGY TECHNICIAN-FARM AGENT Primary Care Provid er Source Comments [facility],non-owned Affiliates and Associated Physician Practices is amultiple site organization consisting of ambulatory clinics and hospital sitesin [place], [place], [place] and [place]. This disclosure is being madepursuant to the Care Everywhere program and may not contain all information available regarding this patient. Last updated 18.[facility] Allergies Active Allergy Reactions Criticality Noted Date [...] Encounters Date Type Department Care Team Description 02/07/2025 Telephone [facility] - Rad/Onc [address] [place] [address] Argentina Rosenthal RN Vomiting 02/06/2025 Telephone [facility] - Rad/Onc [address] [place] [address] Argentina Rosenthal RN Vomiting 01/26/2025 Telephone [facility] - IMMIGRATION ASSOCIATE [address] [facility] [address] [place] [address] Antonia Rodriguez MD Side Effect 01/10/2025 9:00 AM CDT Office Visit [facility] - Rad/Onc [address] [place] [phone] Montana Lakhani MD 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 (HCC) (Primary Dx) 01/10/2025 7:22 AM CDT Anesthesia Event [facility] [address] [place] [address] Wally Serrano MD Levin, Vitaly F, MD 01/10/2025 7:15 AM CDT - 01/10/2025 8:24 AM CDT Surgery [facility] [address] [place] [address] Saran Troy MD [employer] PLACEMENT 01/10/2025 5:32 AM CDT - 01/10/2025 11:53 AM CDT Hospital Encounter [facility] [address] [place] [address] Saran Troy MD Surgery General Discharge Disposition: Home or Self Care 01/10/2025 Travel 01/05/2025 9:30 AM CDT Office Visit [facility] - Rad/Onc [address] [place] [phone] Montana Lakhani MD 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 (HCC) (Primary Dx) 01/05/2025 7:25 AM CDT Anesthesia Event [facility] [address] [place] [address] Milly Rausch MD Levin, Vitaly F, MD 01/05/2025 7:15 AM CDT - 01/05/2025 8:45 AM CDT Surgery [facility] [address] [place] [address] Antonia Rodriguez MD PLACEMENT OF TANDEM [employer] RING 01/05/2025 5:10 AM CDT - 01/05/2025 12:21 PM CDT Hospital Encounter [facility] [address] [place] [address] Antonia Rodriguez MD Surgery General Discharge Disposition: Home or Self Care 01/05/2025 Travel 01/03/2025 9:30 AM CDT Office Visit [facility] - Rad/Onc [address] [place] [phone] Montana Lakhani MD 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 (HCC) (Primary Dx) 01/03/2025 7:21 AM CDT Anesthesia Event [facility] [address] [place] [address] Milly Rausch MD Will, Margaret H, BACTERIOLOGY TECHNICIAN-INTERVENTIONAL RADIOLOGY RN 01/03/2025 7:15 AM CDT - 01/03/2025 8:24 AM CDT Surgery [facility] [address] [place] [address] Saran Troy MD PLACEMENT OF T[employer]DEM [employer] RING 01/03/2025 5:26 AM CDT - 01/03/2025 12:20 PM CDT Hospital Encounter [facility] [address] [place] [phone] Saran Troy MD Surgery General Discharge Disposition: Home or Self Care 12/27/2024 9:30 AM CDT Office Visit [facility] - Rad/Onc [address] [place] [phone] Montana Lakhani MD 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 (HCC) (Primary Dx) 12/27/2024 7:23 AM CDT Anesthesia Event [facility] [address] [place] [address] Milly Rausch MD 12/27/2024 7:15 AM CDT - 12/27/2024 8:15 AM CDT Surgery [facility] [address] [place] [address] Montana Villa MD PLACEMENT OF TANDEM [employer] RINGS 12/27/2024 5:50 AM CDT - 12/27/2024 12:45 PM CDT Hospital Encounter [facility] [address] [place] [address] Montana Villa MD Surgery General Discharge Disposition: Home or Self Care 12/27/2024 Travel 12/26/2024 Travel 12/22/2024 9:30 AM CDT Office Visit [facility] - Rad/Onc [address] [place] [phone] Montana Lakhani MD 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 (HCC) (Primary Dx) 12/22/2024 7:21 AM CDT Anesthesia Event [facility] [address] [place] [address] Jay Jones MD Hogan, Steven 12/22/2024 7:15 AM CDT - 12/22/2024 8:21 AM CDT Surgery [facility] [address] [place] [address] Lamont Cueva MD PLACEMENT OF TANDEM [employer] RING 12/22/2024 5:42 AM CDT - 12/22/2024 12:45 PM CDT Hospital Encounter [facility] [address] [place] [address] Lamont Cueva MD Surgery General Discharge Disposition: Home or Self Care 12/22/2024 Travel 12/21/2024 Travel 12/21/2024 Telephone [facility] - IMMIGRATION ASSOCIATE [address] [facility] [address] [place] [phone] Antonia Rodriguez MD Question 12/20/2024 Telephone [facility] - Rad/Onc [address] [place] [phone] Argentina Rosenthal, RN Appointment 12/20/2024 Travel 12/19/2024 Telephone [facility] - IMMIGRATION ASSOCIATE [address] [facility] [place] [phone] Montana Villa MD Question 12/13/2024 Telephone [facility] - Rad/Onc [address] [place] [phone] Argentina Rosenthal, RN Appointment 12/12/2024 Travel 12/02/2024 Telephone [facility] - Rad/Onc [address] [place] [phone] Argentina Rosenthal RN Appointment 11/16/2024 1:00 PM CDT - 12/18/2024 11:59 PM CDT Hospital Encounter [facility] - Radiation Oncology [address] [place] [phone] Montana Lakhani MD Discharge Disposition: Home or Self Care from [...] on file Legal Sex Female 1:25 PM [employer] Gender Identity Not on file Sexual Orientation [...] Visit [facility] - Rad/Onc [address] [place] [phone] Montana Lakhani MD [address] [place], [place] [phone] Health Maintenance Due Date Last Done Comments [...] Summary (01/10/2025 10:42 AM CDT) Course ID [id number] xTnO RAD ONC TREATMENT Course First Treatment [...] Summary (01/10/2025 10:42 AM CDT) Course ID [id number] xTnO RAD ONC TREATMENT Course First Treatment [...] of11 resultswithin the time period is included. [facility] Glucose WB/POC 116(H) 70 - 99 mg/dL 01/10/2025 8:14 AM CDT [facility] Specimen Type Arterial/C apillary 01/10/2025 8:14 AM CDT [facility] Blood BLOOD SPECIMEN / Unknown 01/10/2025 8:08 AM CDT 01/10/2025 8:14 AM CDT Saran Troy MD LAB - POINT OF CARE ORDERABLES Final Result [facility] [address] [place] [address] * LARYNGEAL MASK AIRWAY (01/10/2025 7:34 AM [...] Summary (01/03/2025 11:22 AM CDT) Course ID [id number] xTnO RAD ONC TREATMENT Course First Treatment [...] Summary (01/03/2025 11:21 AM CDT) Course ID [id number] xTnO RAD ONC TREATMENT Course First Treatment [...] F inal Result Performing Organization Address City/[facility] Co de Phone Number RAD ONC TREATMENT * CULTURE URINE (01/03/2025 7:52 AM CDT) Only the most recent of2 resultswithin the time period is included. [facility] Culture Urine No growth (<100 CFU/mL) [place] 01/04/2025 3:15 PM CDT [facility] Urine URINE SPECIMEN COLLECTION, CATHETERIZED / Unknown Collection / Unknown 01/03/2025 7:52 AM CDT 01/03/2025 8:41 AM CDT Comment:Pre-op diagnosis: Diagnosis unknown [R69] Saran Troy MD LAB - MICROBIOLOGY ORDERABLES Final Result Performing Organization Address [facility] de Phone Number [facility]CRO[facility] [address] [place] [address], [facility] [phone] * LARYNGEAL M[place] AIRWAY (01/03/2025 7:37 AM [...] - 15.8 g/dL 12/27/2024 7:06 AM CDT [facility] Hematocrit 30.2(L) 34.8 - 46.1 % 12/27/2024 7:06 AM CDT [facility] Blood BLOOD SPECIMEN / Unknown Venipuncture / Unknown 12/27/2024 6:49 AM CDT 12/27/2024 7:03 AM CDT Jerry Deleon MD LAB - HEMATOLOGY ORDERABLES Teresa l Result [facility] [address] [place] [address] * Rad Onc Aria Session Summary (12/22/2024 11:27 AM CDT) Course ID [id number] xTnO RAD ONC TREATMENT Course First Treatment [...] Event Date/Time: 12/22/2024 7:27 AM Procedure: intubation (06501) Procedure Section: Sedation: under general anesthesia. Indications [...] Result from Last 3 Months Insurance [facility] [employer] [facility] Care Teams Dental Aide Relationship Specialty Start Date End Date Diann Crain, BACTERIOLOGY TECHNICIAN-FARM AGENT [address] [place] [address] PCP - General Nurse Practitioner Family 09/15/24
--- OUTSIDE RECORDS SUMMARY | 2025-02-24 08:39 | XMS_ITS ---
Author Organization [facility] Address [address] [place] [address] Phone Care Team Providers Care Bag Builder Name Role Phone Diann Crain FUSE CUTTER, EMPLOYMENT SECURITY OFFICER Primary Care Provi scot Antonia Rodriguez MD Unavailable [phone] Malvin Estrada MD Unavailable Taqueria Gresham MD Unavailable [phone] Montana Lakhani MD Unavailable [phone] Active Problems Problem Noted Date Diagnosed Date [...]
--- OUTSIDE RECORDS SUMMARY | 2025-02-24 08:40 | XMS_ITS ---
Author Organization [facility] Address [address] [place] [address] Care Team Providers Care Neurology Stroke Physician Name Role Phone Diann Crain FIRE SPRINKLER SERVICE TECHNICIAN-LEAD ELECTRICIAN Primary Care Provid er Active Problems Problem Noted Date Diagnosed Date Diabetes mellitus, type 2 01/05/2025 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 x 12/27/2024 Current Treatment and Therapy Plans No current plan information found. Past Treatment and Therapy Plans No past plan information found. Radiation Treatments * Course [id number] 12/22/2024 - 01/10/2025 Treatment Period Energy Fraction Dose Fractions Total Dose Plans Planned Cervix 3000 12/22/2024 - 01/10/2025 5 / 5 3,000 cGy Reference Points Delivered
--- OUTSIDE RECORDS SUMMARY | 2025-02-24 08:42 | XMS_ITS | Clinical Summary ---
Author Organization [facility] Viji duffy [facility] Address [address] [facility] [place] [address] Care Team Providers Care Floral Assistant Name Role Phone Unavailable Primary Care Provider Unavailabl e Social History Tobacco Use Types Packs/Day Years Used Date Smoking Tobacco: Never Assessed Comments Unknown Sex and Gender Information Value Date Recorded Sex Assigned at Not on file Legal Sex Female 10:38 AM CDT Gender Identity Not on file Sexual Orientation Not on file Plan of Treatment Upcoming Encounters Date Type Department Care Team ([facility] st Contact Info) Description 02/27/2025 10:30 AM CDT Office Visit [facility] Oncology and Hematology - [place] [facility] [address] [phone] Madhu Duvall MD [address] [facility] [address] [place] [address] Health Maintenance Due Date Last Done Comments DTAP/TDAP/TD VACCINES (1 - Tdap) 10/04/1979 HPV/Cotest (21-29) 1981 CERVICAL CANCER SCREENING 1990 HPV/Cotest (30-65) 1990 PAP SMEAR 1990 BREAST CANCER SCREENING 2000 COLORECTAL SCREENING 2005 Colorectal Cancer Screening 2005 FIT-DNA Q 3 years 2005 FIT/FOBT Q 1 year 2005 Flex Sig/CT Colonography Q 5 years 2005 ZOSTER VACCINE (1 of 2) 2010 INFLUENZA VACCINE (#1) 2025 RSV VACCINE (60+ or ) (1 - 1-dose 75+ series) 10/04/2035 Insurance [facility]
[2025-02-24 08:49] LABS: Add Urine Microscopic? YES; Appearance Urine Clear (Clear); Glucose Urine UA Negative (Negative); Leukocyte Esterase Ur Negative LEU/UL (Negative); Nitrate Urine Negative (Negative); Specific Grav Ur 1.020 (1.010-1.020)
[2025-02-24 11:40] LABS: MALB Creatinine Ratio 163.2 mg/g (0-30)
== END 2025-02-24 08:32 | disposition home or self-care (01) ==
LOC: CHSLAB 08:32
PROVIDERS: PCP Nurse Practitioner Family; Visit Provider Nurse Practitioner Family
DX: N39.0 Urinary tract infection, site not specified (principal)
CPT/HCPCS: 81001; 82043

== ENCOUNTER 2025-02-27 11:15 | Outpatient (CLI) | payer BC, SELFPAY ==
--- OUTSIDE RECORDS SUMMARY | 2024-08-04 08:00 | XMS_ITS ---
Author Organization [facility] Address [address] [place], [place] [id number] Care Team Providers Care Special Education Classroom Aide Name Role Phone DAIANA JESUS MANUEL Unavailable [phone] Diann Crain Unavailable Unavailable Allergies Allergen (clinical [...] Female Encounters Encounter Location Date Provider Diagnosis [address] [id number] 08/04/2024 JESUS MANUEL AHMADI Tinea unguium B35.1 ; Pain in right toe(s) M79.674 ; Pain in left toe(s) M79.675 ; Atherosclerosis of [place] arteries of extremities with intermittent claudication, bilateral [...] toe(s) (ICD-10 - M79.675) 08/04/2024 Atherosclerosis of [place] arteries of extremities with intermittent claudication, bilateral [...] develop. Provider Name:AZUCENA ANDRADE, 04/27/2025 10:50:00 AM, [address] [place] [address], [id number], Progress Notes * Ida GRANDE RDOB: (64 yo F)Acc No.[id number]:08/04/2024 Progress Notes Patient: Ida KNOWLES Provider: Oliver Ahmadi DPM :1960 A ge:63 Y S ex:Female Date:08/04/2024 Address:[address] [facility], [address], [facility] Subjective: * Chief Complaints: * 1 . [...] Dr. Breann gama as 07/2024., I nittho [facility]. * ROS: G eneral / Constitutional: [...] Edema: N o edema bilateral. N eurologic: Mio-[place]in 5.07 monofilament d iminished protective sensation via [...] - M79.675 4 . A therosclerosis of [place] arteries of extremities with intermittent claudication, bilateral [...] develop.) * Billing Information: * Visit Code: 38256 Office Visit, New Pt., Level 3. * Procedure Codes: * Electronic signature of JESUS MANUEL AHMADI DPM on 02/27/2025 at 01:19 PM CDT Sign off status: Pending * Provider: Oliver Ahmadi DPM Date: 0 08/04/2024 Generated for Sara ovalle/Bowen/Farheenitting on: 0 02/27/2025 01:19 PM CDT History and Physical Notes * HPI [...] debris. They are painful to palpation Neurologic Mio-Weinstin 5.07 monofilamen t diminished protective sensation via [...]
--- OUTSIDE RECORDS SUMMARY | 2024-12-08 04:50 | XMS_ITS ---
Author Organization [facility] Address [address] [place], [place] [address] Care Team Providers Care Accounts Payable Administrator Name Role Phone JESUS MANUEL AHMADI Unavailable [phone] Diann Crain Unavailable Unavailable JESUS MANUEL ORTEGA Unavailable [phone] REASON FOR VISIT *General care, sick Social History Sex Assigned At : Social History Observation Description Sex Assigned At Female Encounters Encounter Location Date Provider Diagnosis [facility] [place] [address] [facility] [address] [place], [place] [id number] 12/08/2024 JESUS MANUEL ORTEGA Plan Of Treatment Next Appt Details Provider Name:AZUCENA ANDRADE, 04/27/2025 10:50:00 AM, [address] [place] [address], [phone], Progress Notes * Ida GRANDE RDOB: (64 yo F)Acc No.[id number]:12/08/2024 Patient: Sarah Ida MINER Provider: Oliver Ortega DPM :1960 A ge:64 Y S ex:Female Date:12/08/2024 Address:[address] [facility], [address] [place], [place] Subjective: * Chief Complaints: * 1 . *General care, sick. * Medical History: Objective: * Vitals: Assessment: Plan: * Treatment: * Billing Information: * Visit Code: * Procedure Codes: * Electronic signature of JESUS MANUEL ORTEGA DPM on 02/27/2025 at 01:19 PM CDT Sign off status: Pending * Provider: Oliver Ortega DPM Date: 0 12/08/2024 Generated for Sara ovalle/Bowen/Aranza on: 0 02/27/2025 01:19 PM CDT
--- OUTSIDE RECORDS SUMMARY | 2025-02-23 06:40 | XMS_ITS ---
Author Organization [facility] Address [address] [place], [place] [id number] Care Team Providers Care Cardiac Tech Name Role Phone JESUS MANUEL AHMADI Unavailable [phone] Diann Crain Unavailable Unavailable AZUCENA MYLES Unavailable [phone] Allergies Allergen (clinical drug ingredient) Drug/Non Drug [...] 02/23/2025 Encounters Encounter Location Date Provider Diagnosis [address] [id number] 02/23/2025 AZUCENA MYLES Atherosclerosis of [place] arteries of extremities with intermittent claudication, bilateral legs I70.213 ; Onychomycosis B35.1 ; Pain in right toe(s) M79.674 and Pain in left toe(s) M79.675 Assessments Encounter Date Diagnosis (ICD Code) Assessment Notes Treatment Notes Treatment Clinical Notes Section Notes 02/23/2025 Atherosclerosis of [place] arteries of extremities with intermittent claudication, bilateral [...] Treatment Treatment Notes Assessment Notes Atherosclerosis of [place] ar teries of extremities with intermittent claudication, [...] Reason: Provider Name:AZUCENA ANDRADE, 04/27/2025 10:50:00 AM, [address] [place] [address], [phone], Progress Notes * Ida GRANDE RDOB: 1 (64 yo F)Acc No.[id number]:02/23/2025 Patient: Ida KNOWLES Provider: Jeff MYLES :1960 A ge:64 Y S ex:Female Date:02/23/2025 Address:[address] [facility] [place], [address] [place], [place] [phone] Subjective: * Chief Complaints: * 1 . [...] B35.1 (Primary) 2 . A therosclerosis of [place] arteries of extremities with intermittent claudication, bilateral legs - I70.213 3 . P ain in right toe(s) - M79.674 4 . P ain in left toe(s) - M79.679 Plan: * Treatment: 2. A therosclerosis of [place] arteries of extremities with intermittent claudication, bilateral [...] Electronic signature of LIZZY MYLES DPM on 02/27/2025 at 01:19 PM CDT Sign off status: Pending * Provider: Jeff MYLES Date: 02/23/2025 Generated for Sara Ross/Aranza on: 02/27/2025 01:19 PM CDT History and Physical [...]
--- OUTSIDE RECORDS SUMMARY | 2025-02-27 10:30 | XMS_ITS | Encounter Summary ---
Author Organization [facility] HANNAHLastline [facility] Address [address] [place] [address] Care Team Providers Care Cloud Operations Engineer Name Role Phone Unavailable Primary Care Provider Unavailabl e Reason for Visit * Reason Comments Establish Care Encounter Details Date Type Department Care Team (Late st Contact Info) Description 02/27/2025 10:30 AM CDT Office Visit [facility] Oncology and Hematology - [place] [address] [facility] [address] [place] [address] Madhu Duvall MD [address] [facility] [address] [place] [address] Chronic anemia (Primary Dx) Social History Tobacco Use Types Packs/Day Years [...] on file documented as of this encounter Last Filed Vital Signs Vital Sign Reading Time Taken Comments Blood Pressure 157/87 02/27/2025 10:48 AM CDT Pulse 75 02/27/2025 10:46 AM CDT Temperature 37.1 C (98.7 F) 02/27/2025 10:46 AM CDT Respiratory Rate 16 02/27/2025 10:46 AM CDT Oxygen Saturation 96% 02/27/2025 10:46 AM CDT Inhaled Oxygen Concentration - - Weight 76.5 kg (168 lb 9.6 oz) 02/27/2025 10:46 AM CDT Height 172.7 cm (5' 8) 02/27/2025 10:46 AM CDT Body Mass Index 25.64 02/27/2025 10:46 AM CDT documented in this encounter Progress Notes * Madhu Duvall MD - 02/27/2025 12:17 PM CDT Hematology-oncology consult Note Requesting Physician Primary Care Physician No primary care provider on file. Problem list There is no problem list on file for this patient. Previous TREATMENT ? Measurable Disease ? Reason for Visit Ida Grande is a 64 y.o. female who was referred for consultation for chronic anemia. History of present illness This is a 64-year-old female with history of hypertension, diabetes, hyperlipidemia and stage Ib/IIb cervical cancer diagnosed in August 2024 status post concurrent chemoradiation therapy and then brachytherapy treatment completed in December 2024. Patient has been complaining of tiredness andfatigue but denies any bleeding including melena and hematochezia. Patient also had foot surgery inNov2023. She denies any previous stomach surgery. Denies any vegetarian. She denies any melena or hematochezia. Denies any night sweats fevers and chills. Denies any weight loss. She is not taking any iron and B12 supplement. She had EGD and colonoscopy in June 2024 that showed gastritis an d colon polyps. Denies any other new complaints. Past Medical History Past Medical History: Diagnosis Date Diabetes mellitus (CMS/HCC) Hyperlipidemia Hypertension Malignant neoplasm (CMS/HCC) Surgical History Past Surgical History: Procedure Laterality Date HX FOOT SURGERY 2023 Medications Current Outpatient Medications Medication Sig Dispense Refill insulin lispro (HumaLOG,ADMELOG) 100 unit/mL pen syringe Inject by subcutaneous injection. magnesium OXIDE (MAG-OX) 400 mg (241.3 mg magnesium) tablet Take 400 mg by mouth daily. metFORMIN (GLUCOPHAGE XR) 500 mg Extended Release 24 hour tablet Take 500 mg by mouth 2 times daily. hydroCHLOROthiazide 12.5 mg tablet Take 12.5 mg by mouth daily. lisinopriL (PRINIVIL) 10 mg tablet Take 10 mg by mouth 2 times daily. atorvastatin (LIPITOR) 10 mg tablet Take 10 mg by mouth daily. insulin glargine (LANTUS) 100 unit/mL pen syringe Inject 15 Units by subcutaneous injection. No current facility-administered medications for this visit. Allergies Allergies Allergen Reactions Erythromycin Rash, Swelling and Hives Penicillins Anaphylaxis, Angioedema, Rash and Unknown Patient received cefepime in Apr 2024 Sulfa (Sulfonamide Antibiotics) Hives and Rash Immunizations: There is no immunization history on file for this patient. Family History Family History Problem Relation Name Age of Onset Heart Disease Father Lymphoma Mother Heart Disease Brother Lymphoma Brother No Known Problems Sister No Known Problems Sister No Known Problems Child Social History Social History Tobacco Use Smoking status: Never Smokeless tobacco: Never Substance Use Topics Alcohol use: Never Review of Systems Constitutional: Patient did not mention fever; no night sweats; no anorexia; no weight loss, complain of tiredness and fatigue NEENT: Patient did not mention headache; no change in vision; no change in hearing; no sore throat;no dysphagia Respiratory: Patient did not mention shortness of breath; no pleuritic chest pain; no cough; no hemoptysis Cardiac: Patient did not mention cardiac-like chest pain; no palpitations; no orthopnea; no PND; noDOE Breasts: Patient did not mention tenderness; no masses GI: Patient did not mention abdominal pain; no nausea; no vomiting; no diarrhea; no hematochezia; no melena : Patient did not mention dysuria; no frequency; no hesitancy; no hematuria MANAGER LEAN: Musculosketetal: Patient did not mention bone pain; no arthralgia; no joint swelling; no myalgia; Skin: Patient did not mention pruritis; no rash; no petechiae; no ecchymoses Endocrine: Patient did not mention polydipsia; no polyuria; no unusual weight gain Neuro: Patient did not mention headache; no change in vision; no sensory changes; no muscle weakness; no confusion; no seizures Psych: Patient did not mention anxiety; no depression; Physical Exam Vitals: As per nursing note Constitutional: Well developed, well nourished, no acute distress, non-toxic appearance Teeth and gum. No signs of infection or swelling. Eyes: PERRL, conjunctiva normal HEENT: Atraumatic, external ears normal, nose normal, oropharynx moist, no pharyngeal exudates. no sinus tenderness Neck- normal range of motion, no tenderness, supple Respiratory: No respiratory distress, normal breath sounds, no rales, no wheezing Cardiovascular: Normal rate, normal rhythm, no murmurs, no gallops, no rubs GI: Soft, nondistended, normal bowel sounds, nontender, no splenomegaly, no hepatomegaly, no mass, no rebound, no guarding : No costovertebral angle tenderness Musculoskeletal: No edema, no tenderness, no deformities. Back- no tenderness Integument: Well hydrated, no rash, Digits and nails inspection normal Lymphatic: No lymphadenopathy noted Neurologic: Alert & oriented x 3, CN 2-12 normal, normal motor function, normal sensory function, no focal deficits noted Psychiatric: Speech and behavior appropriate ? labs No results found for this or any previous visit (from the past 24 hours). Labs from January 2025 showed WBC 6.6 hemoglobin 7.9 platelet 162,000 MCV 94. Pathology ? Imaging & Other Studies Performance Status? Assessment / Plan: ? Normocytic anemia. Patient is a pleasant 64-year-old female with history of hypertension,type 2 diabetes, hyperlipidemia and diagnosis of cervical cancer squamous cell carcinoma stage Ib/IIb disease is status post concurrent chemoradiation therapy and then 5 brachytherapy treatment completed in December 2024. Recent labs showed significant anemia with hemoglobin of 7.9. EGD and colonoscopyfrom June 2024 showed gastritis and colon polyps. She is asymptomatic with no bleeding and bruising. She denies being a vegetarian. Denies any previous stomach surgeries. I still believe that her anemia is secondary to recent radiation and chemotherapy treatment with bone marrow suppression. We also discussed the possibility of bone marrow disorders like MDS. At this time I will order the baseline labs including CBC with differential, CMP, iron studies, soluble transferrin receptor, methylmalonic acid level, B12 level and serum protein after pheresis. Based on the initial results we will decide about bone marrow aspiration and biopsy. I have answered all the questions to patient satisfaction. Follow-up in 1 week. Squamous cell carcinoma of cervix status post chemoradiation therapy and brachytherapy completed inJ2024. Patient will follow-up with the radiation oncologist. Type 2 diabetes. Patient is on insulin and metformin. Hypertension. She is on hydrochlorothiazide. Hyperlipidemia. Patient is on Lipitor. Thank you very much for allowing me to participate in Ida Grande's evaluation and management. Please feel free to contact if I can be of any further assistance in your patient???s care requiring hematology or oncology evaluation. Sincerely, ? ? Madhu Duvall M.D. cell TOBACCO COUNSELING She is not a tobacco/nicotine user. Madhu Duvall MD ,02/27/2025 12:17 PM ? Total time spent 60 minutes, two third of the total time spent counseling patient [id number]. CC:? documented in this encounter Plan of Treatment Upcoming Encounters Date Type Department Care Team (Late st Contact Info) Description 03/06/2025 4:30 PM CDT Telephone Check Up [facility] Oncology and Hematology - [place] [address] [facility] [address] [place] [address] Madhu Duvall MD [address] [facility] [address] [place] [address] Scheduled Orders Name Type Priority Associated Diagnoses Orde r Schedule CBC WITH DIFFERENTIAL Lab Stat Chronic anemia Expected: 02/27/2025, Expires: 02/27/2026 COMPREHENSIVE METABOLIC PANEL Lab Stat Chronic anemia Expected: 02/27/2025, Expires: 02/27/2026 FERRITIN Lab Routine Chronic anemia Expected: 02/27/2025, Expires: 02/27/2026 IRON, TIBC, AND PERCENT SATURATION Lab Routine Chronic anemia Expected: 02/27/2025, Expires: 02/27/2026 LACTATE DEHYDROGENASE Lab Routine Chronic anemia Expected: 02/27/2025, Expires: 02/27/2026 METHYLMALONIC ACID Lab Routine Chronic anemia Expected: 02/27/2025, Expires: 02/27/2026 TRANSFERRIN RECEPTOR TFR SOLUBLE Lab Routine Chronic anemia Expected: 02/27/2025, Expires: 02/27/2026 VITAMIN B12 AND FOLATE Lab Routine Chronic anemia Expected: 02/27/2025, Expires: 02/27/2026 PROTEIN ELECTROPHORESIS W/REFLEX,SERUM Lab Routine Chronic anemia Expected: 02/27/2025, Expires: 02/27/2026 documented as of this encounter Visit Diagnoses Diagnosis Chronic anemia- Primary Anemia, unspecified documented in this encounter
[2025-02-27 11:33] LABS: Hematocrit 28.9 % (37.0-47.0); Hemoglobin 9.3 g/dL (12.0-15.0); Immature Granulocyte Percent A 0.6 % (0-0.5); Lymphocytes Absolute Auto 0.58 K/mm3 (0.9-3.2); Mean Corpuscular HGB Conc 32.2 g/dl (32-36); Mean Corpuscular Hemoglobin 30.5 pg (26-34); Mean Corpuscular Volume 94.8 fl (80-100); Nucleated Red Blood Cells Absolute Auto 0.000 K/mm3 (0.0-0.012); Nucleated Red Blood Cells Perc 0.0 % (0.0-0.2); Platelet Count Result 164 k/mm3 (150-375); Red Blood Count 3.05 M/mm3 (4.2-5.4); White Blood Count 7.1 K/mm3 (4.5-10.0)
--- OUTSIDE RECORDS SUMMARY | 2025-02-27 13:19 | XMS_ITS | Clinical Summary ---
Author Organization [facility] Address [address] [place] [address] Care Team Providers Care Dry Chain Operator Name Role Phone Diann Crain COAL HAULER OPERATOR-TURFGRASS TECHNICIAN Primary Care Provid er Source Comments [facility],non-owned Affiliates and Associated Physician Practices is amultiple site organization consisting of ambulatory clinics and hospital sitesin [place], [place], [place] and [place]. This disclosure is being madepursuant to the Care Everywhere program and may not contain all information available regarding this patient. Last updated 18.[facility] Allergies Active Allergy Reactions Criticality Noted [...] Telephone [facility] - Rad/Onc [address] [place] [phone] Argentina Rosenthal RN Vomiting 02/06/2025 Telephone [facility] - Rad/Onc [address] [place] [phone] Argentina Rosenthal RN Vomiting 01/26/2025 Telephone [facility] - KNIT TUBING DYER [address] [place] [phone] Antonia Rodriguez MD Side Effect 01/10/2025 9:00 AM CDT Office Visit [facility] - Rad/Onc [address] [place] [phone] Montana Lakhani MD 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 (HCC) (Primary Dx) 01/10/2025 7:22 AM CDT Anesthesia Event [facility] [address] [place] [phone] Wally Serrano MD Levin, Vitaly F, MD 01/10/2025 7:15 AM CDT - 01/10/2025 8:24 AM CDT Surgery [facility] [address] [place] [address] Saran Troy MD TANDEM [employer] RING PLACEMENT 01/10/2025 5:32 AM CDT - 01/10/2025 11:53 AM CDT Hospital Encounter [facility] [address] [place] [address] [phone] Saran Troy MD Surgery General Discharge Disposition: Home or Self Care 01/10/2025 Travel 01/05/2025 9:30 AM CDT Office Visit [facility] - Rad/Onc [address] [place] [phone] Montana Lakhani MD 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 (HCC) (Primary Dx) 01/05/2025 7:25 AM CDT Anesthesia Event [facility] [address] [place] [phone] iMlly Rausch MD Levin, Vitaly F, MD 01/05/2025 7:15 AM CDT - 01/05/2025 8:45 AM CDT Surgery [facility] [address] [place] [address] Antonia Rodriguez MD PLACEMENT OF TANDEM AND RING 01/05/2025 5:10 AM CDT - 01/05/2025 12:21 PM CDT Hospital Encounter [facility] [address] [place] [address] Antonia Rodriguez MD Surgery General Discharge Disposition: Home or Self Care 01/05/2025 Travel 01/03/2025 9:30 AM CDT Office Visit [facility] - Rad/Onc [address] [place] [phone] Montana Lakhani MD 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 (HCC) (Primary Dx) 01/03/2025 7:21 AM CDT Anesthesia Event [facility] [address] [place] [address] Milly Rausch MD Will, Margaret H, COAL HAULER OPERATOR-TON CONTAINER FILLER 01/03/2025 7:15 AM CDT - 01/03/2025 8:24 AM CDT Surgery [facility] [address] [place] [address] Saran Troy MD PLACEMENT OF TANDEM AND RING 01/03/2025 5:26 AM CDT - 01/03/2025 12:20 PM CDT Hospital Encounter [facility] [address] [place] [address] 52057 Saran Troy MD Surgery General Discharge Disposition: Home or Self Care 12/27/2024 9:30 AM CDT Office Visit [facility] - Rad/Onc [address] [place] [phone] Montana Lakhani MD 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 (HCC) (Primary Dx) 12/27/2024 7:23 AM CDT Anesthesia Event [facility] [address] [place] [address] Milly Rausch MD 12/27/2024 7:15 AM CDT - 12/27/2024 8:15 AM CDT Surgery [facility] [address] [place] [address] Montana Villa MD PLACEMENT OF TANDEM AND RINGS 12/27/2024 5:50 AM CDT - 12/27/2024 12:45 PM CDT Hospital Encounter [facility] [address] [place] [address] Montana Villa MD Surgery General Discharge Disposition: Home or Self Care 12/27/2024 Travel 12/26/2024 Travel 12/22/2024 9:30 AM CDT Office Visit [facility] - Rad/Onc [address] [place] [phone] Montana Lakhani MD 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 (HCC) (Primary Dx) 12/22/2024 7:21 AM CDT Anesthesia Event [facility] [address] [place] [phone] Jay Jones MD Hogan, Steven 12/22/2024 7:15 AM CDT - 12/22/2024 8:21 AM CDT Surgery [facility] [address] [place] [address] 287[address] Lamont Cueva MD PLACEMENT OF TANDEM AND RING 12/22/2024 5:42 AM CDT - 12/22/2024 12:45 PM CDT Hospital Encounter [facility] [address] [place] [address] Lamont Cueva MD Surgery General Discharge Disposition: Home or Self Care 12/22/2024 Travel 12/21/2024 Travel 12/21/2024 Telephone [facility] - KNIT TUBING [facility] [address] [facility] [address] [place] [phone] Antonia Rodriguez MD Question 12/20/2024 Telephone [facility] - Rad[facility]Onc [address] [place] [phone] Argenitna Rosenthal, RN Appointment 12/20/2024 Travel 12/19/2024 Telephone [facility] - KNIT TUBING DYER [address] [facility] [facility] [place] [phone] Montana Villa MD Question 12/13/2024 Telephone [facility] - Rad/Onc [address] [place] [phone] Argentina Rosenthal, RN Appointment 12/12/2024 Travel 12/02/2024 Telephone [facility] - Rad/Onc [address] [place] [phone] Argentina Rosenthal RN Appointment 11/16/2024 1:00 PM CDT - 12/18/2024 11:59 PM CDT Hospital Encounter [facility] - Radiation Oncology [address] [place] [phone] Montana Lakhani MD Discharge Disposition: Home [...] on file Legal Sex Female 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 Gender Identity Not on file Sexual Orientation [...] Visit [facility] - Rad/Onc [address] [place] [phone] Montana Lakhani MD [address] [place], [place] [phone] Health Maintenance Due Date Last Done Comments [...] - Risk 60-74 years 1-dose series) 2020 DIABETES - URINE PROTEIN SCREENING 06/15/2024 DIABETES RETINOPATHY SCREENING 01/05/2025 DIABETES-FOOT EXAM WITH MONOFILAMENT 01/05/2025 DIABETES-HGB A1C 01/05/2025 COVID-19 VACCINE ( season) 2025 05/28/2023, 05/06/2022, 06/29/2021, Additional history exists INFLUENZA [...] MASK AIRWAY Routine 01/10/2025 7:34 AM CDT [place] INSERT UTERI TANDEMS/OVOIDS 01/10/2025 7:08 AM CDT Diagnosis unknown GLUCOSE - POINT OF CARE Routine 01/10/2025 6:02 AM CDT CARDIAC RHYTHM STRIP ORDER 01/09/2025 6:21 PM CDT CARDIAC RHYTHM STRIP ORDER 01/05/2025 4:23 PM CDT GLUCOSE - POINT OF CARE Routine 01/05/2025 11:58 AM CDT GLUCOSE - POINT OF CARE Routine 01/05/2025 8:00 AM CDT [place] INSERT UTERI TANDEMS/OVOIDS 01/05/2025 7:10 AM CDT [...] MASK AIRWAY Routine 01/03/2025 7:37 AM CDT [place] INSERT UTERI TANDEMS/OVOIDS 01/03/2025 6:35 AM CDT [...] OF CARE Routine 12/27/2024 6:48 AM CDT [place] INSERT UTERI TANDEMS/OVOIDS 12/27/2024 6:45 AM CDT Diagnosis unknown CARDIAC RHYTHM STRIP ORDER 12/26/2024 6:38 PM CDT RAD ONC ARIA SESSION SUMMARY Routine 12/22/2024 11:27 AM CDT GLUCOSE - POINT OF CARE Routine 12/22/2024 8:10 AM CDT CULTURE URINE STAT 12/22/2024 7:44 AM CDT Diagnosis unknown ENDOTRACHEAL TUBE NOTE Routine 12/22/2024 7:38 AM CDT [place] INSERT UTERI TANDEMS/OVOIDS 12/22/2024 7:06 AM CDT [...] Summary (01/10/2025 10:42 AM CDT) Course ID [id number] xTnO RAD ONC TREATMENT Course First Treatment [...] Summary (01/10/2025 10:42 AM CDT) Course ID [id number] xTnO RAD ONC TREATMENT Course First Treatment [...] of11 resultswithin the time period is included. [facility] Glucose WB/POC 116(H) 70 - 99 mg/dL 01/10/2025 8:14 AM CDT [facility] Specimen Type Arterial/C apillary 01/10/2025 8:14 AM CDT [facility] Blood BLOOD SPECIMEN / Unknown 01/10/2025 8:08 AM CDT 01/10/2025 8:14 AM CDT Saran Troy MD LAB - POINT OF CARE ORDERABLES Final Result [facility] [address] [place] [address] * LARYNGEAL MASK AIRWAY (01/10/2025 7:34 AM [...] Summary (01/03/2025 11:22 AM CDT) Course ID [id number] xTnO RAD ONC TREATMENT Course First Treatment [...] Summary (01/03/2025 11:21 AM CDT) Course ID [id number] xTnO RAD ONC TREATMENT Course First Treatment Date 12/22/2024 11:26 AM RAD ONC TREATMENT Plan ID Cervix 3000 RAD ONC TREATMENT Plan Fractions Treated to Date 2 RAD ONC TREATMENT Plan Total Fractions Prescribed 5 RAD ONC TREATMENT Plan Total Prescribed Dose 3000 cGy RAD ONC TREATMENT 01/03/2025 11:2 1 AM CDT Provider Unknown RADIATION ONCOLOGY ORDERABLES F inal Result Performing Organization Address City/[facility] Co de Phone Number RAD ONC TREATMENT * CULTURE URINE (01/03/2025 7:52 AM CDT) Only the most recent of2 resultswithin the time period is included. [facility] Culture Urine No growth (<100 CFU/mL) SALOMON 01/04/2025 3:15 PM CDT [facility] Urine URINE SPECIMEN COLLECTION, CATHETERIZED / Unknown Collection / Unknown 01/03/2025 7:52 AM CDT 01/03/2025 8:41 AM CDT Comment:Pre-op diagnosis: Diagnosis unknown [R69] Saran Troy MD LAB - MICROBIOLOGY ORDERABLES Final Result Performing Organization Address [facility] de Phone Number [facility] [address] [place] [address], [facility] [phone] * LARYNGEAL MASK AIRWAY (01/03/2025 7:37 AM [...] HCT PANEL (12/27/2024 6:49 AM CDT) Pathologist [facility] Hemoglobin 10.7(L) 11.9 - 15.8 g/dL 12/27/2024 7:06 AM CDT [facility] Hematocrit 30.2(L) 34.8 - 46.1 % 12/27/2024 7:06 AM CDT [facility] Blood BLOOD SPECIMEN / Unknown Venipuncture / Unknown 12/27/2024 6:49 AM CDT 12/27/2024 7:03 AM CDT Jerry Deleon MD LAB - HEMATOLOGY ORDERABLES Teresa l Result [facility] [address] [place] [address] * Rad Onc Aria Session Summary (12/22/2024 11:27 AM CDT) Course ID [id number] xTnO RAD ONC TREATMENT Course First Treatment [...] Event Date/Time: 12/22/2024 7:27 AM Procedure: intubation ([id number]) Procedure Section: Sedation: under general anesthesia. Indications [...] Result from Last 3 Months Insurance [facility] [employer] [facility] Care Teams Dry Chain Operator Relationship Specialty Start Date End Date Diann Crain, COAL HAULER OPERATOR-TURFGRASS TECHNICIAN [address] [place] [address] PCP - General Nurse Practitioner Family 09/15/24
--- OUTSIDE RECORDS SUMMARY | 2025-02-27 13:19 | XMS_ITS | Clinical Summary ---
Author Organization [facility] Address [address] [place] [address] Phone Care Team Providers Care Computer Console Operator Name Role Phone DavidbeatrisDiann APPRENTICE PLUMBER, FORM GRADER OPERATOR Primary Care Provi scot Antonia Rodriguez MD Unavailable [phone] Malvin Estrada MD Unavailable Taqueria Gresham MD Unavailable [phone] Montana Lakhani MD Unavailable [phone] Allergies Active Allergy Reactions Criticality Noted Date [...] Type Department Care Team Description 01/30/2025 Telephone [facility] [address] [place] [address] Taqueria Gresham MD 01/26/2025 Telephone [facility] [address] [place] [address] Taqueria Gresham MD Care Management (Please see dictated note.) 01/26/2025 Telephone [facility] [address] [place] [address] Malvin Estrada MD 01/20/2025 Travel 01/20/2025 Telephone [facility] [address] [place] [address] Malvin Estrada MD 01/19/2025 Telephone [facility] [address] [place] [address] Malvin Estrada MD 12/31/2024 Refill [facility] [address] [place] [address] Malvin Estrada MD Medication Refill 12/23/2024 Telephone [facility] [address] [place] [phone] Bryanna Smith, AME, FORM GRADER OPERATOR 12/19/2024 Telephone [facility] [address] [place] [address] Malvin Estrada MD 12/19/2024 Telephone [facility] [address] [place] [phone] Malvin Estrada MD 12/12/2024 8:30 AM CDT Clinical Support [facility] [address] [place] [address] Bryanna Smith, APPRENTICE PLUMBER, FORM GRADER OPERATOR Cervical cancer, FIGO stage IB (HCC) (Primary Dx); Cervical cancer, FIGO stage IIB (HCC); Dysuria Discharge Disposition: Discharged to home or Selfcare 12/12/2024 8:15 AM CDT Office Visit [facility] [address] [place] [address] Bryanna Smith APRN, CNP Cervical cancer, FIGO stage IB (HCC) (Primary Dx); History of therapeutic radiation; History of cancer chemotherapy; Dysuria; Chemotherapy induced diarrhea; Chemotherapy-induced nausea Discharge Disposition: Discharged to home or Selfcare 12/12/2024 Travel 12/10/2024 Travel 12/07/2024 Documentation Only [facility] [address] [place] [phone] Yanet Black, BARI 12/05/2024 9:00 AM CDT Clinical Support [facility] [address] [place] [phone] Malvin Estrada MD Cervical cancer, FIGO stage IB (HCC) (Primary Dx); Cervical cancer, FIGO stage IIB (HCC) Discharge Disposition: Discharged to home or Selfcare 12/05/2024 9:00 AM CDT Office Visit [facility] [address] [place] [phone] Taqueria Gresham MD Butler, David Ferrell, MD Cervical cancer, FIGO stage IIB (HCC) (Primary Dx); Encounter for radiotherapy; Patient on combined chemotherapy and radiation Discharge Disposition: Discharged to home or Selfcare 12/05/2024 8:45 AM CDT Clinical Support [facility] [address] [place] [phone] aTqueria Gresham MD History of therapeutic radiation (Primary Dx); History of cancer chemotherapy; Cervical cancer, FIGO stage IB (HCC) Discharge Disposition: Discharged to home or Selfcare 12/05/2024 Travel 12/03/2024 Travel 12/02/2024 10:00 AM CDT Clinical Support [facility] [address] [place] [phone] Taqueria Gresham MD Discharge Disposition: Discharged to home or Selfcare 12/02/2024 Travel 12/01/2024 10:00 AM CDT Clinical Support [facility] [address] [place] [phone] Taqueria Gresham MD Discharge Disposition: Discharged to home or Selfcare 12/01/2024 Travel 11/30/2024 10:00 AM CDT Clinical Support [facility] [address] [place] [phone] Taqueria Gresham MD Discharge Disposition: Discharged to home or Selfcare 11/30/2024 Travel 11/29/2024 10:00 AM CDT Clinical Support [facility] [address] [place] [phone] Taqueria Gresham MD Discharge Disposition: Discharged to home or Selfcare 11/29/2024 Travel 11/28/2024 10:15 AM CDT Office Visit [facility] [address] [place] [phone] Taqueria Gresham MD Encounter for radiotherapy (Primary Dx); Patient on combined chemotherapy and radiation; Cervical cancer, FIGO stage IIB (HCC); Loose stools Discharge Disposition: Discharged to home or Selfcare 11/28/2024 10:00 AM CDT Clinical Support [facility] [address] [place] [phone] Taqueria Gresham MD Discharge Disposition: Discharged to home or Selfcare 11/28/2024 9:00 AM CDT Clinical Support [facility] [address] [place] [phone] Malvin Estrada MD Cervical cancer, FIGO stage IIB (HCC) (Primary Dx); Cervical cancer, FIGO stage IB (HCC) Discharge Disposition: Discharged to home or Selfcare 11/28/2024 Travel 11/27/2024 Travel from Last 3 Months Family History [...] Description 03/14/2025 9:30 AM CDT Office Visit [facility] Oncology Services [address] [place] [address] Barry Martin MD [address] [place] [address] Discharge Disposition: Discharged to home or Selfcare [...] 1.003 - 1.030 12/12/2024 10:11 AM CDT [facility] URINE PH 6.5 5.0 - 9.0 12/12/2024 10:11 AM CDT [facility] WBC ESTERASE 25 /ul(A) Negative 12/12/2024 10:11 AM CDT [facility] NITRITE Negative Negative 12/12/2024 10:11 AM CDT [facility] PROTEIN, RANDOM URINE 500 mg/dL(A) Negative 12/12/2024 10:11 AM CDT [facility] URINE GLUCOSE, QUAL Negative Negative 12/12/2024 10:11 AM CDT [facility] URINE KETONES 15 mg/dL(A) Negative 12/12/2024 10:11 AM CDT [facility] UROBILINOGEN Normal Normal mg/dL 12/12/2024 10:11 AM CDT [facility] URINE BLOOD 150 /uL(A) Negative debbie/ul 12/12/2024 10:11 AM CDT [facility] URINALYSIS COLOR Yellow 12/13/19 25 10:11 AM CDT [facility] URINALYSIS CLARITY Very Cloudy 12/12/2024 10:11 AM CDT [facility] WBC (Urine) 51-150(A) Negative, 0-5 /hpf 12/12/2024 10:11 AM CDT [facility] URINE RBC'S 51-150(A) Negative, 0-2 /hpf 12/12/2024 10:11 AM CDT [facility] EPITHELIAL CELLS Moderate amount /lpf 12/12/2024 10:11 AM CDT [facility] BACTERIA, URINE Few(A) Negative /hpf 12/12/2024 10:11 AM CDT [facility] Urine URINE SPECIMEN OBTAINED BY CLEAN CATCH PROCEDURE / Unknown Non-Phlebotomy Collection / Unknown 12/12/2024 9:43 AM CDT 12/12/2024 9:43 AM CDT us Bryanna Smith APRN, FORM GRADER OPERATOR URINE ORDERABLES Final Result [facility] [address] [place] [address] * CULTURE, URINE (12/12/2024 9:43 AM CDT) CULTURE RESULTS GROUP B STREPTOCOCCUS 12/14/2024 8:58 AM CDT [facility] CULTURE RESULTS Also mixed growth of distal urethral contaminants 12/14/2024 8:58 AM CDT [facility] Urine URINE SPECIMEN OBTAINED BY [...] IIB <=0.5 mcg/ml: Susceptible us Bryanna Smith APPRENTICE PLUMBER, FORM GRADER OPERATOR MICROBIOLOGY - GENERAL ORDERABLES Final Result [facility] [address] [place] [address], * (ABNORMAL) CBC WITH AUTO DIFFERENTIAL (12/12/2024 8:36 AM CDT) Only the most recent of3 resultswithin the time period is included. WBC 1.92(L) 4.00 - 12.00 10(3)/mcL 12/12/2024 9:06 AM CDT [facility] RBC 3.18(L) 3.80 - 5.30 10(6)/mcL 12/12/2024 9:06 AM CDT [facility] HEMOGLOBIN (HGB) 8.8(L) 12.0 - 15.8 g/dL 12/12/2024 9:06 AM CDT [facility] HEMATOCRIT (HCT) 26.3(L) 36.0 - 47.0 % 12/12/2024 9:06 AM CDT [facility] MCV 82.7 82.0 - 96.0 fL 12/12/2024 9:06 AM CDT [facility] MCH 27.7 26.0 - 34.0 pg 12/12/2024 9:06 AM CDT [facility] MCHC 33.5 31.0 - 36.0 g/dL 12/12/2024 9:06 AM CDT [facility] PLATELET COUNT 94(L) 140 - 440 10(3)/mcL 12/12/2024 9:06 AM CDT [facility] RDW 14.8 11.8 - 15.5 % 12/12/2024 9:06 AM CDT [facility] MPV 8.7(L) 9.7 - 12.4 fL 12/12/2024 9:06 AM CDT [facility] NEUTROPHILS 70.3 47.0 - 73.0 % 12/12/2024 9:06 AM CDT [facility] LYMPHOCYTES 5.7(L) 18.0 - 42.0 % 12/12/2024 9:06 AM CDT [facility] MONOCYTES 14.6(H) 4.0 - 12.0 % 12/12/2024 9:[address] [facility] EOSINOPHILS 7.8(H) 0.0 - 5.0 % 12/12/2024 9:06 AM T [facility] BASOPHILS 1.6(H) 0.0 - 1.0 % 12/12/2024 9:[address] [facility] IMMATURE GRANULOCYTE 0.0 0.0 - 0.4 % 12/12/2024 9:[address] [facility] Comment:Immature Granulocyte s includes Metamyelocytes, Myelocytes, and Promyelocytes. ABSOLUTE NEUTROPHILS 1.35(L) 1.60 - 7.70 10(3)/[facility] 12/12/2024 9:[address] [facility] ABSOLUTE LYMPHOCYTES 0.11(L) 1.30 - 3.20 10(3)/[facility] 12/12/2024 9:[address] [facility] ABSOLUTE MONOCYTES 0.28 0.20 - 1.00 10(3)/[facility] 12/12/2024 9:[address] [facility] ABSOLUTE EOSINOPHIL 0.15 0.00 - 0.40 10(3)/[facility] 12/12/2024 9:[address] [facility] ABSOLUTE BASOPHILS 0.03 0.00 - 0.10 10(3)/[facility] 12/12/2024 9:[address] [facility] ABSOLUTE IMMATURE GRANULOCYTE 0.00 0.00 - 0.03 10 (3) mcL. 12/12/2024 9:[address] [facility] NRBC PER 100 WBC 0 12/13/19 9:[address] [facility] RESULTS ARE CONSISTENT WITH PERIPHERAL SMEAR REVIEW Yes 12/12/2024 9:[address] [facility] Blood Venipuncture / Unknown 12/12/2024 8:36 AM CDT 12/12/2024 8:36 AM CDT Malvin Estrada MD HEMATOLOGY ORDERABLES Fi nal Result Performing Organization Address City/[facility]/ZIP Co de Phone Number [facility] [address] [place] [address] * (ABNORMAL) MAGNESIUM (MG) (12/12/2024 8:36 AM CDT) Only the most recent of3 resultswithin the time period is included. MAGNESIUM 1.4(L) 1.6 - 2.6 mg/dL 12/12/2024 9:13 AM CDT [facility] Blood Venipuncture / Unknown 12/12/2024 8:36 AM CDT 12/12/2024 8:36 AM CDT Malvin Estrada MD CHEMISTRY ORDERABLES Fin al Result Performing Organization Address [facility] Co de Phone Number [facility] [address] [place] [address] * (ABNORMAL) CMP (COMPREHENSIVE METABOLIC PANEL) (12/12/2024 8:36 AM CDT) Only the most recent of3 resultswithin the time period is included. SODIUM 134(L) 136 - 145 mmol/L 12/12/2024 9:13 AM CDT [facility] POTASSIUM 3.9 3.5 - 5.1 mmol/L 12/12/2024 9:13 AM CDT [facility] CHLORIDE 100 98 - 107 mmol/L 12/12/2024 9:13 AM CDT [facility] CO2, VENOUS 24 22 - 30 mmol/L 12/12/2024 9:13 AM CDT [facility] ANION GAP 13.9 <18.0 mmol/L 12/12/2024 9:13 AM CDT [facility] GLUCOSE 104(H) 70 - 99 mg/dL 12/12/2024 9:[address] [facility] BUN 13 10 - 20 mg/dL 12/12/2024 9:[address] [facility] CREATININE, BLOOD 1.12(H) 0.60 - 1.00 mg/dL 12/12/2024 9:[address] [facility] BUN/CREATININE RATIO 12 12 - 20 ratio 12/12/2024 9:[address] [facility] TOTAL PROTEIN 6.3 6.0 - 8.0 g/dL 12/12/2024 9:[address] [facility] ALBUMIN 3.7 3.5 - 5.0 g/dL 12/12/2024 9:[address] [facility] A/G RATIO 1.4 1.0 - 2.2 12/12/2024 9:[address] [facility] CALCIUM 8.6(L) 8.7 - 10.5 mg/dL 12/12/2024 9:[address] [facility] T BILI 0.4 0.2 - 1.2 mg/dL 12/12/2024 9:[address] [facility] SGOT (AST) 17 <43 U/L 12/12/2024 9:[address] [facility] SGPT (ALT) <6 <56 U/L 12/12/2024 9:[address] [facility] ALKALINE PHOSPHATASE 36(L) 40 - 150 U/L 12/12/2024 9:[address] [facility] IS THE PATIENT REQUIRED TO BE FASTING? No 12/12/2024 9:[address] [facility] GFR, ESTIMATED 55(L) >=60 12/12/2024 9:[address] [facility] Comment: Creatinine Clearance is the preferred criteria for selecting drug dose adjustments in renally impaired patients. The GFR is provided as additional pertinent clinical information. GFR is reported in mL/min/1.73 sq m. Calculation based on the Chronic Kidney Disease Epidemiology Collaboration (CKD- EPI) equation refit without adjustment for race. GFR, EST. 59(L) >=60 025 9:13 AM CDT [facility] GFR, EST. NONAFRICAN 49(L) >=60 12/12/2024 9:13 AM CDT [facility] Blood Venipuncture / Unknown 12/12/2024 8:36 AM CDT 12/12/2024 8:36 AM CDT Malvin Estrada MD CHEMISTRY ORDERABLES Fin al Result Performing Organization Address City/[facility]/ZIP Co de Phone Number [facility] [place] [address] * RAD ONC ARIA COURSE SUMMARY (12/07/2024 [...] F inal Result ARIA [address] MO[facility] [address] [place] [id number] * RAD ONC ARIA SESSION SUMMARY (12/05/2024 [...] F inal Result [facility] [address] [place] [address] * RAD ONC ARIA SESSION SUMMARY (12/02/2024 [...] ORDERABLES F inal Result Performing Organization Address City/[facility] Co de Phone Number [facility] [address] [place] [address] * RAD ONC ARIA SESSION [...] ORDERABLES F inal Result Performing Organization Address City/[facility] Co de Phone Number [facility] [address] [place] [address] * RAD ONC ARIA SESSION SUMMARY (11/30/2024 [...] ORDERABLES F inal Result Performing Organization Address City/State/[facility] Co de Phone Number ARIA [facility] [address] [place] [address] * RAD ONC ARIA SESSION SUMMARY (11/29/2024 [...] ORDERABLES F inal Result Performing Organization Address [facility] Co de Phone Number ARIA [facility] [address] [place] [address] * RAD ONC ARIA SESSION SUMMARY (11/28/2024 [...] ORDERABLES F inal Result Performing Organization Address [facility] Co de Phone Number [facility] [address] [place] [address] * HM COLONOSCOPY (10/12/2024 12:00 AM CDT) 10/12/2024 us Provider Scan PROCEDURE/MINOR SURGICAL ORDERAB LES Final Result Performing Organization Address City/State/[facility] Co de Phone Number SCAN from Last 3 Months or Most Recently Relevant to Health Maintenance Insurance [facility] Care Teams Computer Console Operator Relationship Specialty Start Date End Date Diann Crain, APPRENTICE PLUMBER, FORM GRADER OPERATOR [address] [place] [address] PCP - General Advanced Practice Nurse 10/10/24 Antonia Rodriguez MD [address] [address] Consulting Physician Gynecologic Oncology 10/11/24 Malvin Estrada MD [address] [place] [address] Consulting Physician Medical Oncology 10/11/24 Taqueria Gresham MD [address] [place] [address] Consulting Physician Radiation Oncology 10/11/24 Montana Lakhani MD [address] [place] [address] Consulting Physician Radiation Oncology 10/12/24
--- OUTSIDE RECORDS SUMMARY | 2025-02-27 13:19 | XMS_ITS | Patient Health Record ---
Author Organization [facility] Address [address] [place], [place] [id number] Care Team Providers Care Repairer Veneer Sheet Name Role Phone JESUS MANUEL AHMADI Unavailable [phone] Diann Crain Unavailable Unavailable JESUS MANUEL MCDONOUGH Unavailable [phone] AZUCENA MYLES Unavailable [phone] Allergies Allergen (clinical drug ingredient) Drug/Non Drug [...] 02/23/2025 Encounters Encounter Location Date Provider Diagnosis [address] [id number] 08/04/2024 JESUS MANUEL AHMADI Tinea unguium B35.1 ; Pain in right toe(s) M79.674 ; Pain in left toe(s) M79.675 ; Atherosclerosis of comanche arteries of extremities with intermittent claudication, bilateral legs I70.213 and Type 2 diabetes mellitus with other circulatory complications E11.[address] [id number] 02/23/2025 AZUCENA MYLES Atherosclerosis of comanche arteries of extremities with intermittent claudication, bilateral legs I70.213 ; Onychomycosis B35.1 ; Pain in right toe(s) M79.674 and Pain in left toe(s) M79.675 [facility] [address] [address] [place], [place] [id number] 10/06/2024 JESUS MANUEL MCDONOUGH Atherosclerosis of comanche arteries of extremities with intermittent claudication, bilateral [...] and necrotic tissue removed 02/23/2025 Atherosclerosis of comanche arteries of extremities with intermittent claudication, bilateral legs (ICD-10 - I70.213) Patient educated on risks and aggravating factors of PVD, including conservative treatment options such as a diet and exercise regimen to aid in slowing progression of vascular disease. Check and protect LE bilateral daily. Call if any changes or concerns. 10/06/2024 Atherosclerosis of comanche arteries of extremities with intermittent claudication, bilateral [...] toe(s) (ICD-10 - M79.675) 08/04/2024 Atherosclerosis of comanche arteries of extremities with intermittent claudication, bilateral [...] Details Provider Name:AZUCENA ANDRADE, 04/27/2025 10:50:00 AM, [address] [place] [address], [id number], Insurance Providers Payer Name Payer Address Payer Phone Subscriber Number Group Number Insured Name Patient Relationship to Insured Coverage Start Date Coverage End Date [facility] ([facility]) ATTN CLAIMS [address] [place] [address] [id number] [place] Self - patient is the insured Medical (General) History Medical History History ICD Code neuropathy Arthritis Diabetic varicose veins
--- OUTSIDE RECORDS SUMMARY | 2025-02-27 13:19 | XMS_ITS ---
Author Organization [facility] Address [address] [place] [address] Phone Care Team Providers Care Application Technical Designer Name Role Phone Diann Crian MANAGER SERVICING, PATHOLOGY SECRETARY Primary Care Provi scot Antonia Rodriguez MD Unavailable [phone] Malvin Estrada MD Unavailable [phone] Taqueria Gresham MD Unavailable [phone] [place] Lakhani MD Unavailable [phone] Active Problems Problem Noted Date Diagnosed Date [...]
--- OUTSIDE RECORDS SUMMARY | 2025-02-27 13:20 | XMS_ITS ---
Author Organization [facility] Address [address] [place] [address] Care Team Providers Care Field Property Loss Specialist Name Role Phone Diann Crain ELECTRICIAN FRONT-PERSONAL LINES AGENT Primary Care Provid er Active Problems Problem Noted Date Diagnosed Date Diabetes mellitus, type 2 01/05/2025 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 x 12/27/2024 Current Treatment and Therapy Plans No current plan information found. Past Treatment and Therapy Plans No past plan information found. Radiation Treatments * Course [id number] 12/22/2024 - 01/10/2025 Treatment Period Energy Fraction Dose Fractions Total Dose Plans Planned Cervix 3000 12/22/2024 - 01/10/2025 5 / 5 3,000 cGy Reference Points Delivered
--- OUTSIDE RECORDS SUMMARY | 2025-02-27 13:20 | XMS_ITS | Clinical Summary ---
Author Organization [facility] Address [address] [place] [address] Care Team Providers Care Filter Tender Jelly Name Role Phone Chu Lorenzo MD Primary [...] Sex Assigned at Female 04/29/2018 9:29 PM NAVIGATION OFFICER Legal Sex Female 5:33 PM NAVIGATION OFFICER Gender Identity Female 04/29/2018 9:29 PM NAVIGATION OFFICER Sexual Orientation Straight 04/29/2018 9: 29 PM NAVIGATION OFFICER Last Filed Vital Signs Vital Sign Reading Time Taken Comments Blood Pressure 144/79 05/04/2018 1:50 PM NAVIGATION OFFICER Pulse 69 05/04/2018 1:50 PM NAVIGATION OFFICER Temperature 36.6 C (97.9 F) 05/04/2018 1:50 PM NAVIGATION OFFICER Respiratory Rate 18 05/04/2018 1:50 PM NAVIGATION OFFICER Oxygen Saturation 100% 05/04/2018 1:50 PM NAVIGATION OFFICER Inhaled Oxygen Concentration - - Weight 86.8 kg (191 lb 5.8 oz) 05/04/2018 4:43 A M NAVIGATION OFFICER Height 172.7 cm (5' 8) 04/29/2018 9:12 PM NAVIGATION OFFICER Body Mass Index 29.1 04/29/2018 9:12 PM NAVIGATION OFFICER Plan of Treatment Health Maintenance Due Date [...] Vaccines (1 of 2) 2010 COVID-19 Vaccine ( - 2023-2 5 season) 2025 RSV Immunization or 60+ Years (1 - 1-dose 75+ series) 10/04/2035 Meningococcal B Vaccine Aged Out No l onger eligible based on patient's age to complete this topic Meningococcal Vaccine Aged Out No beena heriberto eligible based on patient's age to complete this topic RSV Immunizations Under 20 Months Aged Out No longer eligible based on patient's age to complete this topic Insurance [facility][note 3] [address] Advance Directives * Full Code (Latest Code Status on File) Date Activated Date Inactivated Comments 04/29/2018 11:48 PM 05/04/2018 7:30 PM Care Teams Filter Tender Jelly Relationship Specialty Start Date End Date Chu Lorenzo MD PCP - General SURGERY 04/24/18
--- OUTSIDE RECORDS SUMMARY | 2025-02-27 13:20 | XMS_ITS | Clinical Summary ---
Author Organization [facility] Viji Lam Address [address] [place] [address] Care Team Providers Care Tube Former Operator Name Role Phone Unavailable Primary Care Provider Unavailabl e Allergies Active Allergy Reactions Criticality Noted Date Comments Erythromycin Rash,Swelling,Hives High 09/16/2024 Penicillins Anaphylaxis,Angioede ma,Rash,Unknown High 04/29/2018 Patient received cefepime in Apr 2024 Sulfa (Sulfonamide Antibiotics) Hives,Rash High 04/29/2018 Medications insulin glargine (LANTUS) 100 unit/mL pen syringe Inject 15 Units by subcutaneous injection. Active insulin lispro (HumaLOG,ADMELO G) 100 unit/mL pen syringe Inject by subcutaneous injection. 5 Active magnesium OXIDE (MAG-OX) 400 mg (241.3 mg magnesium) tablet Take 400 mg by mouth daily. 5 Active metFORMIN (GLUCOPHAGE XR) 500 mg Extended Release 24 hour tablet Take 500 mg by mouth 2 times daily. 5 Active hydroCHLOROthia zide 12.5 mg tablet Take 12.5 mg by mouth daily. Active lisinopriL (PRINIVIL) 10 mg tablet Take 10 mg by mouth 2 times daily. Active atorvastatin (LIPITOR) 10 mg tablet Take 10 mg by mouth daily. Active Active Problems No known active problems Encounters Date Type Department Care Team Description 02/27/2025 10:30 AM CDT Office Visit [facility] Oncology and Hematology - [place] [address] [place] [address] Madhu Duvall MD Chronic anemia (Primary Dx) from Last 3 Months Family History Medical History Relation Name Comments Heart Disease Brother 1 Lymphoma Brother 2 No Known Problems Child Heart Disease Father Lymphoma Mother No Known Problems Sister 1 No Known Problems Sister 2 Relation Name Status Comments Brother 1 Alive Brother 2 Child Alive Father Mother Sister 1 Alive Sister 2 [...] Mass Index 25.64 02/27/2025 10:46 AM CDT Plan of Treatment Upcoming Encounters Date Type Department Care Team (Late st Contact Info) Description 03/06/2025 4:30 PM CDT Telephone Check Up [facility] Oncology and Hematology - [place] [address] [facility] [address] [place] [address] Mdahu Duvall MD [address] [place] [address] Health Maintenance Due Date Last Done Comments HPV/Cotest (21-29) 1981 CERVICAL CANCER SCREENING 1990 HPV/Cotest (30-65) 1990 PAP SMEAR 1990 BREAST CANCER SCREENING 2000 FIT-DNA Q 3 years 2005 FIT/FOBT Q 1 year 2005 Flex Sig/CT Colonography Q 5 years 2005 ZOSTER VACCINE (1 of 2) 2010 Preventative Visit- Commercial 06/15/2024 INFLUENZA VACCINE (#1) 2025 , 05/28/2023, 05/06/2022, Additional history exists DTAP/TDAP/TD VACCINES (2 - T d or Tdap) 04/14/2034 04/14/2024 COLORECTAL SCREENING 10/12/2034 10/12/2024 Colorectal Cancer Screening 10/12/2034 RSV VACCINE (60+ or ) (1 - 1-dose 75+ series) 10/04/2035 Insurance
[2025-02-27 16:47] LABS: Alanine Aminotransferase 9 U/L (6-35); Albumin Level 3.6 g/dL (3.5-5.1); Alkaline Phosphatase 48 U/L (38-126); Anion Gap 6 mmol/L (4-12); Aspartate Amino Transferase 23 U/L (14-36); Bilirubin,Total 0.2 mg/dL (0.2-1.3); Blood Urea Nitrogen 14 mg/dL (7-17); Calcium 8.9 mg/dL (8.4-10.2); Carbon Dioxide 31 mmol/L (22-30); Chloride 97 mmol/L (98-107); Estimated Glomerular Filt Rate 51; Glucose 150 mg/dL (65-110); Potassium 4.0 mmol/L (3.4-5.0); Sodium 134 mmol/L (137-145); Total Protein 6.6 g/dL (6.3-8.2)
[2025-02-27 17:19] LABS: Iron 42 ug/dL (37-170)
[2025-02-27 17:30] LABS: Percent Iron Saturation 14 % (20-50)
[2025-02-27 17:57] LABS: Ferritin 85.70 ng/mL (11.1-264)
[2025-02-27 17:58] LABS: Vitamin B12 207.0 pg/mL (239-931)
[2025-02-28 14:08] LABS: Albumin 3.1 g/dL (2.9-4.4); Alpha-1-Globulin 0.3 g/dL (0.0-0.4); Alpha-2-Globulin 0.8 g/dL (0.4-1.0); Gamma Globulin 0.7 g/dL (0.4-1.8)
== END 2025-02-27 11:16 | disposition home or self-care (01) ==
LOC: ANHLAB 11:16
PROVIDERS: PCP Nurse Practitioner Family; Visit Provider Internal Medicine Hematology & Oncology
DX: D64.9 Anemia, unspecified (principal)
CPT/HCPCS: 36415; 80053; 82607; 82728; 82746; 83540; 83550; 83615; 83921; 84155; 84165; 84238; 85025

== ENCOUNTER 2025-04-21 08:39 | Outpatient (CLI) | payer BC, SELFPAY ==
--- OUTSIDE RECORDS SUMMARY | 2025-04-05 12:00 | XMS_ITS | Encounter Summary ---
Author Organization [facility] Health Address [address] [place] [address] Care Team Providers Care Intensive Care Nurse Name Role Phone Diann Crain APARTMENT COMMUNITY ASSISTANT MANAGER-ENGINEERING MANAGER Primary Care Provid er Encounter Details Date Type Department Care Team (Late st Contact Info) Description 04/05/2025 1:00 PM CDT Hospital Encounter [facility] Health Cancer Care - Radiation Oncology [address] [place] [address] Montaan Lakhani MD [address] [place] [address] Social History Tobacco Use Types Packs/Day Years [...] on file Legal Sex Female 1:25 PM TIMBER INCISOR OPERATOR Gender Identity Not on file Sexual Orientation Not on file documented as of this encounter Functional Status * Over the past 2 weeks, how often have you been bothered by any of the following problems? Question Answer Date of Assessment Author Little interest or pleasure in doing things Not at all 04/05/2025 1:28 PM RICHELLET Argentina Rosenthal RN Feeling down, depressed, or hopeless Not at all 04/05/2025 1:28 PM RICHELLET Argentina Rosenthal RN Patient Health Questionnaire-2 Score 0 04/05/2025 1:28 PM CDT Shelby Rosenthal RN documented as of this encounter Plan of Treatment Upcoming Encounters Date Type Department Care Team (Late st Contact Info) Description 07/18/2025 1:00 PM TIMBER INCISOR OPERATOR Appointment [facility] Cancer Care - Radiation Oncology [address] [place] [address] Montana Lakhani MD [address] [place], [place] [phone] documented as of this encounter Visit Diagnoses Not on filedocumented in this encounter Care Teams Intensive Care Nurse Relationship Specialty Start Date End Date Diann Crain, APARTMENT COMMUNITY ASSISTANT MANAGER-ENGINEERING MANAGER [address] [place] [address] PCP - General Nurse Practitioner Family 09/15/24 documented as of this encounter
--- OUTSIDE RECORDS SUMMARY | 2025-04-05 12:00 | XMS_ITS | Encounter Summary ---
Author Organization [facility] Health Address [address] [place] [address] Care Team Providers Care Plow And Boring Machine Tender Name Role Phone Diann Crain PHYSICIAN PRACTICE ADMINISTRATOR-TRAINING COORDINATOR Primary Care Provid er Encounter Details Date Type Department Care Team (Late st Contact Info) Description 04/05/2025 1:00 PM CDT Hospital Encounter [facility] Health Cancer Care - Radiation Oncology [address] [place] [address] Montana Lakhani MD [address] [place] [address] Social History Tobacco Use Types Packs/Day Years [...] on file Legal Sex Female 1:25 PM IMMIGRATION MANAGER Gender Identity Not on file Sexual Orientation [...] st Contact Info) Description 07/18/2025 1:00 PM IMMIGRATION MANAGER Appointment [facility] Cancer Care - Radiation Oncology [address] [place] [address] Montana Lakhani MD [address] [place], [place] [phone] documented as of this encounter Visit Diagnoses Not on filedocumented in this encounter Care Teams Plow And Boring Machine Tender Relationship Specialty Start Date End Date Diann Crain, PHYSICIAN PRACTICE ADMINISTRATOR-TRAINING COORDINATOR [address] [place] [address] PCP - General Nurse Practitioner Family 09/15/24 documented as of this encounter
--- OUTSIDE RECORDS SUMMARY | 2025-04-19 14:30 | XMS_ITS | Encounter Summary ---
Author Organization [facility] Address [address] [place] [address] Care Team Providers Care Citizen Participation Specialist Name Role Phone Diann Crain SENIOR PUBLICATIONS SPECIALIST-DEVELOPMENT AND HOUSING DIRECTOR Primary Care Provid er Encounter Details Date Type Department Care Team (Latest Contact Info) Description 04/19/2025 2:30 PM CHERRY SORTER - 04/19/2025 11:59 PM CHERRY SORTER Hospital Encounter [facility] - Outside Imaging Discharge Disposition: Home or Self Care Social [...] on file Legal Sex Female 1:25 PM CHERRY SORTER Gender Identity Not on file Sexual Orientation Not on file documented as of this encounter Medications at [...] st Contact Info) Description 07/18/2025 1:00 PM CHERRY SORTER Appointment [facility] Cancer Care - Radiation Oncology [address] [place] [address] Montana Lakhani MD [address] [place] [address] documented as of this encounter Procedures Procedure Name Priority Date/Time Associated Diagnosis Comments CT ABDOMEN PELVIS OUTSIDE Routine 04/01/2025 2:41 PM CDT documented in this encounter Results * CT Abdomen Pelvis Outside (04/01/2025 2:41 PM CDT) Narrative [facility] RAD[facility]OLOG[facility] - 04/19/2025 2:42 PM CHERRY SORTER This is a study from an outside facility that has been uploaded into PACS. us Provider Digitize IMAGING Final Result Performing Organization Address City/State/[facility] Co de Phone Number [facility] [address] [place] [address] documented in this encounter Visit Diagnoses Not on filedocumented in this encounter Care Teams Citizen Participation Specialist Relationship Specialty Start Date End Date Diann Crain, SENIOR PUBLICATIONS SPECIALIST-DEVELOPMENT AND HOUSING DIRECTOR [address] [place] [address] PCP - General Nurse Practitioner Family 09/15/24 documented as of this encounter
[2025-04-21 08:53] LABS: Hematocrit 33.9 % (35.0-49.0); Hemoglobin 10.7 g/dL (12.0-15.0); Immature Granulocyte Percent A 0.5 % (0.0-0.0); Lymphocytes Absolute Auto 0.40 K/mm3 (1.10-4.50); Mean Corpuscular HGB Conc 31.6 g/dL (32-36); Mean Corpuscular Hemoglobin 28.1 pg (27.0-31.0); Mean Corpuscular Volume 89.0 fL (78.0-102.0); Nucleated Red Blood Cells Absolute Auto 0.00 K/mm3 (0.00-0.00); Nucleated Red Blood Cells Perc 0.0 % (0-0.0); Platelet Count Result 141 K/mm3 (150-420); Red Blood Count 3.81 M/mm3 (4.20-5.40); White Blood Count 7.6 K/mm3 (4.8-10.8)
--- OUTSIDE RECORDS SUMMARY | 2025-04-21 09:00 | XMS_ITS | Clinical Summary ---
Author Organization [facility] Address [address] [place] [address] Care Team Providers Care Personnel Quality Assurance Auditor Name Role Phone Diann Crain FURNACE BUILDER-DROP WIRE OPERATOR Primary Care Provid er Source Comments [facility],non-owned Affiliates and Associated Physician Practices is amultiple site organization consisting of ambulatory clinics and hospital sitesin [place], [place], [place]. This disclosure is being madepursuant to the Care Everywhere program and may not contain all information available regarding this patient. Last updated 18.[facility] Allergies Active Allergy Reactions Criticality Noted [...] needed for Pain 40 tablet 1 09/20/19 Active Additional Information Patient not taking.Reported on 04/05/2025 docusate sodium (Colace) 100 MG capsule Take 1 (one) capsule by mouth 2 times daily 60 capsule 1 09/20/19 Active gabapentin (Neurontin) 300 MG capsule Take [...] daily with morning and evening meal 12/20/19 Active phenazopyridin e (Pyridium) 200 MG tablet Take 1 (one) tablet by mouth 3 times daily with meals 30 tablet 01/04/20 Active Additional Information Patient not taking.Reported on 04/05/2025 cyanocobalamin (Vitamin B-12) 1000 MCG tablet Take 1 (one) tablet by mouth once daily Active lisinopril (Prinivil; Zestril) 40 MG tablet Take 1 (one) tablet by mouth once daily Active ferrous sulfate 325 (65 FE) MG tablet Take 1 (one) tablet by mouth once daily Active Magnesium Oxide -Mg Supplement 400 (240 Mg) MG Take 1 (one) tablet by mouth 2 times daily 11/02/19 025 Discontin ued(List Clean-Up) Active Problems Problem Noted Date Diagnosed Date Diabetes mellitus, type 2 01/05/2025 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 x 12/27/2024 Encounters Date Type Department Care Team Description 04/19/2025 2:30 PM RN UTILIZATION MANAGEMENT UM - 04/19/2025 11:59 PM RN UTILIZATION MANAGEMENT UM Hospital Encounter [facility] - Outside Imaging Discharge Disposition: Home or Self Care 04/05/2025 1:15 PM CDT Office Visit [facility] - Rad/Onc [address] [place] [phone] Montana Lakhani MD 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 (HCC) (Primary Dx) 04/05/2025 1:00 PM CDT Hospital Encounter [facility] Cancer Care - Radiation Oncology [address] [place] [address] Montana Lakhani MD 04/05/2025 1:00 PM CDT Hospital Encounter [facility] Cancer Care - Radiation Oncology [address] [place] [address] Montana Lakhani MD 04/05/2025 Travel 04/04/2025 Travel 02/07/2025 Telephone [facility] - Rad/Onc [address] [place] [phone] Argentina Rosenthal RN Vomiting 02/06/2025 Telephone [facility] - Rad/Onc [address] [place] [phone] Argentina Rosenthal RN Vomiting 01/26/2025 Telephone [facility] - REFRACTORY WORKER [address] [facility] [address] [place] [phone] Antonia Rodriguez MD Side Effect from Last 3 Months Family History Medical [...] on file Legal Sex Female 1:25 PM RN UTILIZATION MANAGEMENT UM Gender Identity Not on file Sexual Orientation Not on file Last Filed Vital Signs Vital Sign Reading Time Taken Comments Blood Pressure 103/52 04/05/2025 1:32 PM CDT Pulse 83 04/05/2025 1:15 PM CDT Temperature 36.3 C (97.3 F) 04/05/2025 1:15 PM CDT Respiratory Rate 18 04/05/2025 1:15 PM CDT Oxygen Saturation 100% 04/05/2025 1:15 PM CDT Inhaled Oxygen Concentration - - Weight 74.1 kg (163 lb 6.4 oz) 04/05/2025 1:15 P M CDT Height 172.7 cm (5' 8) 04/05/2025 1:15 PM CDT Body Mass Index 24.84 04/05/2025 1:15 PM CDT Plan of Treatment Upcoming Encounters Date Type Department Care Team (Late st Contact Info) Description 07/18/2025 1:00 PM RN UTILIZATION MANAGEMENT UM Appointment [facility] Health Cancer Care - Radiation Oncology [address] [place] [address] Montana Lakhani MD [address] [place], [place] [phone] Health Maintenance Due Date Last Done Comments COLOGUARD (AGES 45-75) - COLON CA SCREENING 1960 COLON MONITORING 1960 COLONOSCOPY - COLON CA SCREENING 1960 CT COLONOGRAPHY - COLON CA SCREENING 1960 Colorectal Cancer Screening 1960 FIT - COLON CA SCREENING 1960 FLEX SIG - COLON CA SCREENING 1960 MAMMOGRAM 1960 HIV SCREENING 10/04/1975 HEPATITIS C SCREENING 09/29/1978 DIABETES-SERUM CREATININE 1978 DTAP/TDAP/TD VACCINES (1 - Tdap) 10/04/1979 PNEUMOCOCCAL [...] 2025 , 05/28/2023, 05/06/2022, Additional history exists DEPRESSION SCREENING Completed 11/16/2024 [...] PELVIS OUTSIDE Routine 04/01/2025 2:41 PM CDT from Last 3 Months Results * CT Abdomen Pelvis Outside (04/01/2025 2:41 PM CDT) Narrative [facility] RAD[facility] - 04/19/2025 2:42 PM RN UTILIZATION MANAGEMENT UM This is a study from an outside facility that has been uploaded into PACS. us Provider Digitize IMAGING Final Result [facility] [address] [place] [address] from Last 3 Months Insurance ANTH Care Teams Personnel Quality Assurance Auditor Relationship Specialty Start Date End Date Diann Crain, FURNACE BUILDER-DROP WIRE OPERATOR [address] [place] [address] PCP - General Nurse Practitioner Family 09/15/24
--- OUTSIDE RECORDS SUMMARY | 2025-04-21 09:00 | XMS_ITS ---
Author Organization [facility] Address [address] [place] [address] Care Team Providers Care Quick Print Operator Name Role Phone Diann Crain RAMP ATTENDANT-WATER TREATMENT PLANT MECHANIC Primary Care Provid er Active Problems Problem Noted Date Diagnosed Date Diabetes mellitus, type 2 01/05/2025 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 x 12/27/2024 Current Treatment and Therapy Plans No current plan information found. Past Treatment and Therapy Plans No past plan information found. Radiation Treatments * Course [id number] 12/22/2024 - 01/10/2025 Treatment Period Energy Fraction Dose Fractions Total Dose Plans Planned Cervix 3000 12/22/2024 - 01/10/2025 5 / 3,000 cGy Reference Points Delivered
--- OUTSIDE RECORDS SUMMARY | 2025-04-21 09:00 | XMS_ITS | Clinical Summary ---
Author Organization [facility] Address [address] [place] [address] Phone Care Team Providers Care Dental Assistant Medical Assistant Name Role Phone DavidlnynDiann nieves METALLURGICAL ANALYST, WINDOW SHADE ESTIMATOR Primary Care Provi scot Antonia Rodriguez MD Unavailable [phone] Malvin Estrada MD Unavailable [phone] Taqueria Gresham MD Unavailable [phone] Montana Lakhani MD Unavailable Waqar Frankel MD Unavailable Allergies Active Allergy Reactions Criticality [...] DISPERSIBLEIndi cations:Cervica l cancer, FIGO stage IIB Take 1 Tablet by mouth every 8 hours as needed for Nausea - 1st line. Take one tablet every 8 hours as needed for nausea 30 Tablet 2 5 Active OLANZapine (ZyPREXA) 5 MG TabletIndicatio ns:Cervical cancer, FIGO stage IIB Take 1 Tablet by mouth See Admin Instructions. Take one tablet nightly for 4 nights, starting the night prior to chemotherapy. Repeat every 7 days for 6 cycles 24 Tablet 5 Active gabapentin (NEURONTIN) 300 MG Capsule TAKE 1 CAPSULE BY MOUTH EVERY DAY AT NIGHT 30 Capsule 1 5 Active prochlorperazin e (COMPAZINE) 10 MG TabletIndicatio ns:Cervical cancer, FIGO stage IIB Take 1 Tablet by mouth every 6 hours as needed for Nausea - 2nd line. Take one tablet every 6 hours as needed for nausea. 30 Tablet 2 5 Active atorvastatin (LIPITOR) 10 MG Tablet Take 10 mg by mouth daily. Active hydroCHLOROthia zide 12.5 MG Tablet Take 12.5 mg by mouth daily. Active lisinopril (PRINIVIL, ZESTRIL) 10 MG Tablet Take 10 mg by mouth 2 times daily. Active Active Problems Problem Noted Date Diagnosed Date Dysuria 12/12/2024 History of therapeutic radiation 12/11/2024 Overview (04/10/2025): External beam cervix and pelvic lymph node radiotherapy 45 Thompson in 25 fractions from 10/31/2024 thru 12/05/2024. She received a cervical boost with intracavitary HDR brachytherapy delivering 30 Thompson in 5 fractions with insertions of 12/22/2024, 12/27/2024, 01/03/2025, 01/05/2025, and 01/10/2025. History of cancer chemotherapy 12/11/2024 Overview (12/11/2024): Weekly cisplatin concurrent with external beam cervix and pelvic lymph node radiotherapy with cycle 1 10/31/2024, cycle 2 11/08/2024, cycle 3 11/15/2024, and cycle 4 11/21/2024, and cycle 5 11/28/2024. Neuralgic pain 11/08/2024 Cervical cancer, FIGO stage [...] Problem Noted Date Diagnosed Date Resolved Date Chemotherapy-induced nausea 12/12/2024 04/06/2025 Diarrhea 11/23/2024 04/06/2025 Chemotherapy induced diarrhea 11/08/2024 04/06/2025 Malignant neoplasm of overla pping sites of cervix 11/08/2024 11/21/2024 Vagina bleeding 10/10/2024 10/19/2024 Encounters Date Type Department Care Team Description 04/11/2025 Telephone [facility] Oncology Services [address] [place] [address] Taqueria rGesham MD 04/07/2025 Telephone [facility] Oncology Services [address] [place] [address] Taqueria Gresham MD Follow-up (Please see dictated note.) 04/06/2025 10:30 AM CDT [facility] [address] [place] [address] Taqueria Gresham MD Right leg weakness (Primary Dx); Cervical cancer, FIGO stage IB; History of therapeutic radiation; History of cancer chemotherapy Discharge Disposition: Discharged to home or Selfcare 04/06/2025 Travel 04/04/2025 Travel 04/01/2025 6:59 AM CDT - 04/01/2025 11:59 PM CDT Hospital Encounter [facility] [address] [place] [address] Barry Martin MD Discharge Disposition: Discharged to home or Selfcare 03/30/2025 Travel 03/13/2025 Travel 01/30/2025 [facility] [address] [place] [address] Taqueria Gresham MD 01/26/2025 [facility] [address] [place] [address] Taqueria Gresham MD Care Management (Please see dictated note.) 01/26/2025 Telephone [facility] Oncology Services [address] [place] [address] Malvin Estrada MD 01/20/2025 Travel 01/20/2025 [facility] [address] [place] [address] Malvin Estrada MD 01/19/2025 [facility] [address] [place] [address] Malvin Estrada MD from Last 3 Months [...] Sign Reading Time Taken Comments Blood Pressure 160/81 04/06/2025 10:27 AM CDT Pulse 73 04/06/2025 10:27 AM CDT Temperature 36.3 C (97.4 F) 04/06/2025 10:27 AM CDT Respiratory Rate 18 04/06/2025 10:27 AM CDT Oxygen Saturation 98% 04/06/2025 10:27 AM CDT Inhaled Oxygen Concentration - - Weight 75.4 kg (166 lb 3.2 oz) 04/06/2025 10:27 AM CDT Height 172.7 cm (5' 8) 04/06/2025 10:27 AM CDT Body Mass Index 25.27 04/06/2025 10:27 AM CDT Plan of Treatment Upcoming Encounters Date Type Department Care Team (Late st Contact Info) Description 05/18/2025 9:15 AM STR[facility] BRUSHER [facility] [address] [place] [address] Waqar Frankel MD [address] [place] [address] 07/11/2025 10:00 AM [facility] BRUSHER [facility] [address] [place] [address] Taqueria Gresham MD [address] [place] [address] Discharge Disposition: Discharged to home or Selfcare Health Maintenance Due Date Last Done Comments Diabetes: Eye Exam 1960 Diabetes: Foot Exam 1960 Diabetes: Hemoglobin A1c 1960 Hepatitis C Virus (HCV) Screening 1960 Mammogram 1960 Pneumococcal Immunization (50+ years) (1 of 2 - PCV) 10/04/1979 Zoster Immunization (1 of 2) 10/04/1979 Cologuard 2005 Immunochemical Fecal Occult Blood 2005 SARS-COV-2 Immunization (7 - Pfizer risk 2024- season) 2025 02/28/2025, 05/28/2023, 05/06/2022, Additional history exists Diabetes: Nephropathy Screening 12/12/2025 12/12/2024, 12/05/2024, 11/28/2024, Additional history exists Colonoscopy 10/12/2034 10/12/2024 Colorectal Cancer Screening 10/12/2034 Respiratory Syncytial Virus (RSV) Immunization (Adult) Completed 07/26/2023 TdaP Immunization Completed 04/14/2024 Influenza Immunization Completed , 07/20/2024, 05/28/2023, Additional history exists Hepatitis B Immunization Aged [...] Date/Time Associated Diagnosis Comments CT ABDOMEN PELVIS W/ CONTRAST Routine 04/01/2025 7:25 AM CDT Cervical cancer, FIGO stage IIB INTERNAL MEDICINE CONSULT 01/21/2025 12:[address] - ABDOMEN/PELVIS 01/20/2025 1 2:00 AM CDT CMP (COMPREHENSIVE METABOLIC PANEL) STAT 12/12/2024 8:36 AM CDT Cervical cancer, FIGO stage IIB (HCC) HM COLONOSCOPY 10/12/2024 12:00 AM CDT from Last 3 Months or Most Recently Relevant to Health Maintenance Results * CT ABDOMEN PELVIS W/ CONTRAST (04/01/2025 7:25 AM CDT) Anatomical Region Laterality Modality Abdomen N/A Computed Tomogra phy 04/01/2025 7:25 AM CDT Impressions 04/01/2025 9:57 AM CDT Impression: 1. Circumferential wall thickening involving the urinary bladder with mucosal enhancement, suggestive of acute cystitis. Correlation with recent/updated urinalysis is recommended. These findings may be radiation induced. 2. Given differences in technique from prior MRI on 10/17/2024, there is suspected interval treatment response as evidenced by decrease in size of the treated cervical mass and a few pelvic lymph nodes. No new or enlarging lymphadenopathy within the abdomen or pelvis. 3. Calcified stones within the gallbladder neck as well as the proximal cystic duct with associated mild gallbladder wall thickening. Correlation with right upper quadrant symptomatology is recommended. Mildly dilated extrahepatic duct (12 mm) without a definitive distal obstructing stone. If there is clinical concern for choledocholithiasis, a dedicated MRCP could be considered for further evaluation. CONSERUS RESULTS COMMUNICATION: Communication of results utilizing Results today Conserus Results Notification process 04/01/2025 9:57 AM. Narrative 04/01/2025 9:57 AM CDT DICTATING PHYSICIAN: Sean Sharma M.D. - [facility] Examination: CT abdomen and pelvis with contrast. Clinical Information: 64-year-old female with history of uterine/cervical cancer. History of radiation treatment in October to November 2024. Comparison: 10/17/2024. Technique: IV contrast: 99 mL of Isovue-300. Enteric contrast: Oral contrast: None. Technical comments: Standard technique. Dose reduction: This CT exam was performed using one or more of the following dose-reduction techniques: Automated exposure control, adjustment of the mA and/or kV according to patient size, and/or use of iterative reconstruction technique.Radiation dose reduction techniques were employed. CTDIvol: 3.6 - 8.5 mGy. DLP: 784 mGy- cm. Findings: LOWER CHEST The heart is normal in size. No pericardial effusion. The lung bases are clear. No pleural effusion. UPPER ABDOMEN Liver and bile ducts: The liver is morphologically normal. No focal suspicious hepatic lesion demonstrated. The portal and hepatic veins are patent. Mild prominence of the extrahepatic duct measuring up to 12 mm. No definitive distal CBD stone/mass. Gallbladder: Stones within the gallbladder neck as well as the proximal cystic duct. The gallbladder is mildly thickened. No pericholecystic inflammatory changes identified. Pancreas: Normal in morphology. No peripancreatic inflammatory changes. Spleen: Normal. RETROPERITONEUM Adrenals: Normal. Kidneys: The kidneys are morphologically normal and symmetrically enhance. No focal suspicious renal lesion demonstrated. No hydronephrosis or ureterectasis, bilaterally. Lymph nodes: No suspicious lymphadenopathy demonstrated within the abdomen or pelvis. A few pelvic lymph nodes appear diminished in size from 10/17/2024. For instance, there is a 0.8 cm left external iliac lymph node (series 301, image #134), previously 1.0 cm. No new or enlarging lymphadenopathy demonstrated. BOWEL AND PERITONEUM Bowel: The small and large bowel is normal in caliber and wall thickness. There is no evidence of a small or large bowel obstruction. Mild to moderate colonic stool burden within the left hemicolon. The terminal ileum is normal. The appendix is normal. The distal esophagus, stomach, and duodenum are normal. The duodenum crosses midline. Small fat-containing umbilical hernia. Free air or fluid: None. VASCULATURE There is no abdominal aortic aneurysm. Scattered atherosclerotic calcifications involving the aortobiiliac system. The IVC is normal in caliber. The renal veins are patent. The mesenteric veins are patent. PELVIS Anteverted uterus. Given differences in technique, suspected interval treatment response from prior MR pelvis on 10/17/2024 with interval decrease in size of the previously identified cervical mass. No suspicious adnexal lesions identified. Circumferential wall thickening involving the urinary bladder with mucosal hyperenhancement. Mild perivesicular stranding/edema. Mesorectal edema, likely posttreatment related. BONES AND SOFT TISSUES No acute or suspicious osseous lesion demonstrated. Mild degenerative changes within the hips. Procedure Note Sean Sharma MD - 04/01/2025 DICTATING PHYSICIAN: Sean [facility] - [facility] Examination: CT abdomen and pelvis with contrast. Clinical Information: 64-year-old female with history of uterine/cervicalcancer. History of radiation treatment in October to November 2024. Comparison: 10/17/2024. Technique: IV contrast: 99 mL of Isovue-300. Enteric contrast: Oral contrast: None. Technical comments: Standard technique. Dose reduction: This CT exam was performed using one or more of thefollowing dose-reduction techniques: Automated exposure control,adjustment of the mA and/or kV according to patient size, and/or use ofiterative reconstruction technique.Radiation dose reduction techniqueswere employed. CTDIvol: 3.6 - 8.5 mGy. DLP: 784 mGy-cm. Findings: LOWER CHEST The heart is normal in size. No pericardial effusion. The lung basesare clear. No pleural effusion. UPPER ABDOMEN Liver and bile ducts: The liver is morphologically normal. No focalsuspicious hepatic lesion demonstrated. The portal and hepatic veins arepatent. Mild prominence of the extrahepatic duct measuring up to 12 mm. Nodefinitive distal CBD stone/mass. Gallbladder: Stones within the gallbladder neck as well as theproximal cystic duct. The gallbladder is mildly thickened. Nopericholecystic inflammatory changes identified. Pancreas: Normal in morphology. No peripancreatic inflammatorychanges. Spleen: Normal. RETROPERITONEUM Adrenals: Normal. Kidneys: The kidneys are morphologically normal and symmetricallyenhance. No focal suspicious renal lesion demonstrated. No hydronephrosisor ureterectasis, bilaterally. Lymph nodes: No suspicious lymphadenopathy demonstrated within theabdomen or pelvis. A few pelvic lymph nodes appear diminished in size from10/17/2024. For instance, there is a 0.8 cm left external iliac lymph node(series 301, image #134), previously 1.0 cm. No new or enlarginglymphadenopathy demonstrated. BOWEL AND PERITONEUM Bowel: The small and large bowel is normal in caliber and wallthickness. There is no evidence of a small or large bowel obstruction.Mild to moderate colonic stool burden within the left hemicolon. Theterminal ileum is normal. The appendix is normal. The distal esophagus,stomach, and duodenum are normal. The duodenum crosses midline. Smallfat-containing umbilical hernia. Free air or fluid: None. VASCULATURE There is no abdominal aortic aneurysm. Scattered atheroscleroticcalcifications involving the aortobiiliac system. The IVC is normal incaliber. The renal veins are patent. The mesenteric veins are patent. PELVIS Anteverted uterus. Given differences in technique, suspected intervaltreatment response from prior MR pelvis on 10/17/2024 with interval decreasein size of the previously identified cervical mass. No suspicious adnexallesions identified. Circumferential wall thickening involving the urinarybladder with mucosal hyperenhancement. Mild perivesicular stranding/edema.Mesorectal edema, likely posttreatment related. BONES AND SOFT TISSUES No acute or suspicious osseous lesion demonstrated. Mild degenerativechanges within the hips. Impression: 1. Circumferential wall thickening involving the urinary bladder withmucosal enhancement, suggestive of acute cystitis. Correlation withrecent/updated urinalysis is recommended. These findings may be radiationinduced. 2. Given differences in technique from prior MRI on 10/17/2024, there issuspected interval treatment response as evidenced by decrease in size ofthe treated cervical mass and a few pelvic lymph nodes. No new orenlarging lymphadenopathy within the abdomen or pelvis. 3. Calcified stones within the gallbladder neck as well as the proximalcystic duct with associated mild gallbladder wall thickening. Correlationwith right upper quadrant symptomatology is recommended. Mildly dilatedextrahepatic duct (12 mm) without a definitive distal obstructing stone.If there is clinical concern for choledocholithiasis, a dedicated MRCPcould be considered for further evaluation. CONSERUS RESULTS COMMUNICATION: Communication of results utilizing Resultstoday Conserus Results Notification process 04/01/2025 9:57 AM. us Barry Martin MD IMG CT ORDERABLES Final Result * INTERNAL MEDICINE CONSULT (01/21/2025 12:00 AM CDT) 01/21/2025 us Provider Scan GENERIC SCAN ORDERS CONSULT Teresa l Result SCAN * CT - ABDOMEN/PELVIS (01/20/2025 12:00 AM CDT) 01/20/2025 us Provider Scan IMG CT ORDERABLES Final Result Performing Organization Address City/[facility]/ZIP Co de Phone Number SCAN * (ABNORMAL) CMP (COMPREHENSIVE METABOLIC PANEL) (12/12/2024 8:36 AM CDT) SODIUM 134(L) 136 - 145 mmol/L 12/12/2024 9:13 AM CDT [facility] POTASSIUM 3.9 3.5 - 5.1 mmol/L 12/12/2024 9:13 AM CDT [facility] CHLORIDE 100 98 - 107 mmol/L 12/12/2024 9:13 AM CDT [facility] CO2, VENOUS 24 22 - 30 mmol/L 12/12/2024 9:13 AM CDT [facility] ANION GAP 13.9 <18.0 mmol/L 12/12/2024 9:13 AM CDT [facility] GLUCOSE 104(H) 70 - 99 mg/dL 12/12/2024 9:13 AM CDT [facility] BUN 13 10 - 20 mg/dL 12/12/2024 9:13 AM CDT [facility] CREATININE, BLOOD 1.12(H) 0.60 - 1.00 mg/dL 12/12/2024 9:13 AM CDT [facility] BUN/CREATININE RATIO 12 12 - 20 ratio 12/12/2024 9:13 AM CDT [facility] TOTAL PROTEIN 6.3 6.0 - 8.0 g/dL 12/12/2024 9:13 AM CDT [facility] ALBUMIN 3.7 3.5 - 5.0 g/dL 12/12/2024 9:13 AM CDT [facility] A/G RATIO 1.4 1.0 - 2.2 12/12/2024 9:13 AM CDT [facility] CALCIUM 8.6(L) 8.7 - 10.5 mg/dL 12/12/2024 9:13 AM CDT [facility] T BILI 0.4 0.2 - 1.2 mg/dL 12/12/2024 9:13 AM CDT [facility] SGOT (AST) 17 <43 U/L 12/12/2024 9:13 AM CDT [facility] SGPT (ALT) <6 <56 U/L 12/12/2024 9:13 AM T [facility] ALKALINE PHOSPHATASE 36(L) 40 - 150 U/L 12/12/2024 9:13 AM [facility] IS THE PATIENT REQUIRED TO BE FASTING? No 12/12/2024 9:13 AM CDT [facility] GFR, ESTIMATED 55(L) >=60 12/12/2024 9:13 AM T [facility] Comment: Creatinine Clearance is the preferred criteria for selecting drug dose adjustments in renally impaired patients. The GFR is provided as additional pertinent clinical information. GFR is reported in mL/min/1.73 sq m. Calculation based on the Chronic Kidney Disease Epidemiology Collaboration (CKD- EPI) equation refit without adjustment for race. GFR, EST. 59(L) >=60 025 9:13 AM CDT [facility] GFR, EST. NONAFRICAN 49(L) >=60 12/12/2024 9:13 AM T [facility] Blood Venipuncture / Unknown 12/12/2024 8:36 AM CDT 12/12/2024 8:36 AM CDT us Malvin Estrada MD CHEMISTRY ORDERABLES Fin al Result [facility] [address] [place] [address] * HM COLONOSCOPY (10/12/2024 12:00 AM CDT) 10/12/2024 us Provider Scan PROCEDURE/MINOR SURGICAL ORDERAB LES Final Result SCAN from Last 3 Months or Most Recently Relevant to Health Maintenance Insurance [facility] Care Teams Dental Assistant Medical Assistant Relationship Specialty Start Date End Date Diann Crain, METALLURGICAL ANALYST, WINDOW SHADE ESTIMATOR [address] [place] [address] PCP - General Advanced Practice Nurse 10/10/24 Antonia Rodriguez MD [address] [address] Consulting Physician Gynecologic Oncology 10/11/24 Malvin Estrada MD [address] [place] [address] Consulting Physician Medical Oncology 10/11/24 Taqueria Gresham MD [address] [place] [address] Consulting Physician Radiation Oncology 10/11/24 Montana Lakhani MD [address] [place] [address] Consulting Physician Radiation Oncology 10/12/24 Waqar Frankel MD [address] [place] [id number] Consulting Physician Neurology 04/07/25
--- OUTSIDE RECORDS SUMMARY | 2025-04-21 09:00 | XMS_ITS | Clinical Summary ---
Author Organization [facility] Viji Lam Address [address] [place] [address] Care Team Providers Care Hop Trainer Name Role Phone Unavailable Primary Care Provider Unavailabl e Allergies Active Allergy Reactions Criticality Noted Date Comments Erythromycin Rash,Swelling,Hives High 09/16/2024 Penicillins Anaphylaxis,Angioede ma,Rash,Unknown High 04/29/2018 Patient received cefepime in Apr 2024 Sulfa (Sulfonamide Antibiotics) Hives,Rash High 04/29/2018 Medications insulin glargine (LANTUS) 100 unit/mL pen syringe Inject 15 Units by subcutaneous injection. Active insulin lispro (HumaLOG,ADMEL OG) 100 unit/mL pen syringe Inject by subcutaneous injection. 5 Active magnesium OXIDE (MAG-OX) 400 mg (241.3 mg magnesium) tablet Take 400 mg by mouth daily. 5 Active metFORMIN (GLUCOPHAGE XR) 500 mg Extended Release 24 hour tablet Take 500 mg by mouth 2 times daily. 5 Active hydroCHLOROthi azide 12.5 mg tablet Take 12.5 mg by mouth daily. Active lisinopriL (PRINIVIL) 10 mg tablet Take 10 mg by mouth 2 times daily. Active atorvastatin (LIPITOR) 10 mg tablet Take 10 mg by mouth daily. Active cyanocobalamin (VITAMIN B-12) 1,000 mcg/mL Solution Inject 1 mL (1,000 mcg) by intramuscular injection every 30 days. 1 mL 4 5 Active Syringe with Needle, Disp, 1 mL 27 x 1/2 Syringe Use with B12 Injections. 1 Each 4 5 Active Active Problems No known active problems Encounters Date Type Department Care Team Description 04/12/2025 External Device Data STL ABSTRACTION Provider, Abstract 04/12/2025 External Device Data STL ABSTRACTION Provider, Abstract 04/05/2025 External Device Data STL ABSTRACTION Provider, Abstract 04/04/2025 External Device Data STL ABSTRACTION Provider, Abstract 03/29/2025 Refill [facility] On[facility] and H[facility]ology [place] [address] [place] [phone] Madhu Duvall MD 03/07/2025 Orders Only [facility] Oncology and Hematology [facility] [address] [place] [phone] Madhu Duvall MD 03/06/2025 4:30 PM CDT Telephone Check Up [facility] Oncology and Hematology [facility] [address] [place] [phone] Madhu Duvall MD Chronic anemia (Primary Dx) 03/06/2025 Orders Only [facility] Oncology and Hematology [facility] [address] [place] [phone] Madhu Duvall MD 03/01/2025 Orders Only [facility] [place] [address] [place] [phone] Madhu Duvall MD 03/01/2025 External Device Data STL ABSTRACTION Provider, Abstract 02/28/2025 External Device Data STL ABSTRACTION Provider, Abstract 02/28/2025 External Device Data STL ABSTRACTION Provider, Abstract 02/28/2025 Orders Only [facility] H[facility]ology [place] [address] [place] [address] Madhu Duvall MD 02/27/2025 10:30 AM CDT Office Visit [facility] Oncology and Hematology [facility] [address] [place] [phone] Madhu Duvall MD Chronic anemia (Primary Dx) [...] Care Team (Late st Contact Info) Description 06/19/2025 2:15 PM LOAN FUNDER Office Visit [facility] Oncology and Hematology - [place] [address] [facility] [address] [place] [address] Madhu Duvall MD [address] [facility] [address] [place] [address] Health Maintenance Due Date Last Done Comments DIABETES ANNUAL FOOT EXAM 1978 DIABETES ANNUAL RETINAL EXAM 1978 DIABETES HBA1C Q 6 MONTHS 1978 DIABETES MICROALBUMIN ANNUAL SCREEN 1978 LDL CHOLESTEROL ANNUAL 1978 DTAP/TDAP/TD VACCINES (1 - Tdap) 10/04/1979 HPV/Cotest (21-29) 1981 CERVICAL CANCER SCREENING 1990 HPV/Cotest (30-65) 1990 PAP SMEAR 1990 BREAST CANCER SCREENING 2000 FIT-DNA Q 3 years 2005 FIT/FOBT Q 1 year 2005 Flex Sig/CT Colonography Q 5 years 2005 RSV VACCINE (60+ or ) (1 - Risk 50-74 years 1-dose series) 2010 ZOSTER VACCINE (1 of 2) 2010 INFLUENZA VACCINE (#1) 2025 05/01/2018 COLORECTAL SCREENING 10/12/2034 10/12/2024 Colorectal Cancer Screening 10/12/2034 Procedures Procedure Name Priority Date/Time Associated Diagnosis Comments COMPREHENSIVE METABOLIC PANEL Routine 02/27/2025 2:40 PM CDT PROTEIN ELECTROPHORESIS, CSF Routine 02/27/2025 2:23 PM CDT CHG SOLUBLE TRANSFERRIN RECEPTOR Routine 02/27/2025 12:44 PM CDT CBC WITH AUTODIFFERENTIAL Routine 2024 12:39 PM CDT METHYLMALONIC ACID Routine 02/27/2025 7: 58 AM CDT from Last 3 Months Results * COMPREHENSIVE METABOLIC PANEL (02/27/2025 2:40 PM CDT) Blood us Madhu Duvall MD CHEMISTRY ORDERABLES Final Resu lt * PROTEIN ELECTROPHORESIS, CSF (02/27/2025 2:23 PM CDT) Cerebrospinal fluid CEREBROSPINAL FLUID / Unknown us Madhu Duvall MD BODY FLUIDS AND STOOLS Final Re sult * CHG SOLUBLE TRANSFERRIN RECEPTOR (02/27/2025 12:44 PM CDT) us Madhu Duvall MD CHG - LABORATORY Final Result * CBC WITH AUTODIFFERENTIAL (02/27/2025 12:39 PM CDT) Blood us Madhu Duvall MD HEMATOLOGY ORDERABLES Final Res ult * METHYLMALONIC ACID (02/27/2025 7:58 AM CDT) Blood Madhu Duvall MD CHEMISTRY ORDERABLES Final Resu lt from Last 3 Months Insurance
--- OUTSIDE RECORDS SUMMARY | 2025-04-21 09:00 | XMS_ITS ---
Author Organization [facility] Address [address] [place] [address] Phone Care Team Providers Care Call Center Operations Manager Name Role Phone Diann Crain SHAKE FEEDER, OCULARIST Primary Care Provi soct Antonia Rodriguez MD Unavailable [phone] Malvin Estrada MD Unavailable [phone] Taqueria Gresham MD Unavailable [phone] Montana Lakhani MD Unavailable Waqar Frankel MD Unavailable Active Problems Problem Noted Date [...] Linked Problems Cervical cancer, FIGO stage IIB Treatment Medications CISplatin (PLATINOL) chemo infusion Past Treatment and Therapy Plans No past plan information found. Current Radiation Episodes * IMRT: Bilateral Cervix, Bilateral PelvisOverview* First Treatment Date Latest Treatment Date Treatment Site Technique Goal Episode Provider 10/31/2024 12/05/2024 Bilateral CervixBilateral Pelvis IMRT Curative * Linked Problems Cervical cancer, FIGO stage IIB Treatment Courses* Course C1 10/31/2024 - 12/05/2024 Treatment Period Fraction Dose Fractions Total Dose Plans Planned [id number] 10/31/2024 - 12/05/2024 180 cGy 4,500 cGy Reference Points Delivered Pelvis_PRP 10/31/2024 [...]
[2025-04-21 09:54] LABS: Alanine Aminotransferase 10 U/L (6-35); Albumin Level 4.3 g/dL (3.5-5.1); Alkaline Phosphatase 51 U/L (38-126); Anion Gap 8 mmol/L (4-12); Aspartate Amino Transferase 17 U/L (14-36); Bilirubin,Total 1.1 mg/dL (0.2-1.3); Blood Urea Nitrogen 41 mg/dL (7-17); Calcium 9.7 mg/dL (8.4-10.2); Carbon Dioxide 30 mmol/L (22-30); Chloride 100 mmol/L (98-107); Creatine Kinase 44 U/L (30-135); Estimated Glomerular Filt Rate 47; Glucose 122 mg/dL (65-110); Osmolality Calculated 297 mOsm/kg (285-295); Potassium 5.6 mmol/L (3.4-5.0); Sodium 138 mmol/L (137-145); Total Protein 6.7 g/dL (6.3-8.2)
== END 2025-04-21 08:40 | disposition home or self-care (01) ==
LOC: CHSLAB 08:41
PROVIDERS: PCP Nurse Practitioner Family; Visit Provider Radiology Radiation Oncology
DX: R29.898 Other symptoms and signs involving the musculoskeletal system (principal); C53.9 Malignant neoplasm of cervix uteri, unspecified; E11.9 Type 2 diabetes mellitus without complications; Z79.4 Long term (current) use of insulin; Z92.21 Personal history of antineoplastic chemotherapy
CPT/HCPCS: 36415; 80053; 82085; 82550; 85025

== ENCOUNTER 2025-05-09 08:12 | Outpatient (CLI) | payer BC, SELFPAY ==
--- OUTSIDE RECORDS SUMMARY | 2025-04-05 12:00 | XMS_ITS | Encounter Summary ---
Author Organization [facility] Health Address [address] [place] [address] Care Team Providers Care Cane Packer Name Role Phone Diann Crain MITOCHONDRIAL DISORDERS COUNSELOR-NUT PROCESSING SUPERVISOR Primary Care Provid er Encounter Details Date Type Department Care Team (Latest Contact Info) Description 04/05/2025 1:00 PM CDT - 05/07/2025 11:59 PM ELECTRICAL TECH Hospital Encounter [facility] Cancer Care - Radiation Oncology [address] [place] [address] Montana Lakhani MD [address] [place], [place] [phone] Discharge Disposition: Home or Self Care Social [...] on file Legal Sex Female 1:25 PM ELECTRICAL TECH Gender Identity Not on file Sexual Orientation [...] st Contact Info) Description 07/18/2025 1:00 PM ELECTRICAL TECH Office Visit [facility] - Rad/Onc [address] [place] [address] Montana Lakhani MD [address] [place] [address] documented as of this encounter Visit Diagnoses Not on filedocumented in this encounter Care Teams Cane Packer Relationship Specialty Start Date End Date Diann Crain, MITOCHONDRIAL DISORDERS COUNSELOR-NUT PROCESSING SUPERVISOR [address] [place] [address] PCP - General Nurse Practitioner Family 09/15/24 documented as of this encounter
--- OUTSIDE RECORDS SUMMARY | 2025-04-05 12:00 | XMS_ITS | Encounter Summary ---
Author Organization [facility] Health Address [address] [place] [address] Care Team Providers Care Warper Tender Name Role Phone Diann Crain DATA SUPPORT SPECIALIST-CONTENT STRATEGIST Primary Care Provid er Encounter Details Date Type Department Care Team (Latest Contact Info) Description 04/05/2025 1:00 PM CDT - 05/07/2025 11:59 PM LINE CREW SUPERVISOR Hospital Encounter [facility] Cancer Care - Radiation Oncology [address] [place] [address] Montana Lakhani MD [address] [place], [place] [phone] Discharge Disposition: Home or Self Care Social [...] on file Legal Sex Female 1:25 PM LINE CREW SUPERVISOR Gender Identity Not on file Sexual Orientation [...] st Contact Info) Description 07/18/2025 1:00 PM LINE CREW SUPERVISOR Office Visit [facility] - Rad/Onc [address] [place] [address] Montana Lakhani MD [address] [place] [address] documented as of this encounter Visit Diagnoses Not on filedocumented in this encounter Care Teams Warper Tender Relationship Specialty Start Date End Date Diann Crain, DATA SUPPORT SPECIALIST-CONTENT STRATEGIST [address] [place] [address] PCP - General Nurse Practitioner Family 09/15/24 documented as of this encounter
--- OUTSIDE RECORDS SUMMARY | 2025-05-09 08:16 | XMS_ITS | Clinical Summary ---
Author Organization [facility] Viji Lam Address [address] [place] [address] Care Team Providers Care Clinical Nursing Intern Name Role Phone Unavailable Primary Care Provider [...] Encounters Date Type Department Care Team Description 05/02/2025 External Device Data STL ABSTRACTION Provider, Abstract 04/12/2025 External Device Data STL ABSTRACTION Provider, Abstract 04/12/2025 External Device Data STL ABSTRACTION Provider, Abstract 04/05/2025 External Device Data STL ABSTRACTION Provider, Abstract 04/04/2025 External Device Data STL ABSTRACTION Provider, Abstract 03/29/2025 Refill [facility] Oncology and Hematology - [place] [address] [place] [address] Madhu Duvall MD 03/07/2025 Orders Only [facility] Oncology and Hematology [place] [address] [place] [address] Madhu Duvall MD 03/06/2025 4:30 PM CDT Telephone Check Up [facility] Oncology and Hematology [facility] [address] [place] [address] Madhu Duvall MD Chronic anemia (Primary Dx) 03/06/2025 Orders Only [facility] Oncology and Hematology [place] [address] [place] [address] Madhu Duvall MD 03/01/2025 Orders Only [facility] Oncology and Hematology [place] [address] [place] [address] Madhu Duvall MD 03/01/2025 External Device Data STL ABSTRACTION Provider, Abstract 02/28/2025 External Device Data STL ABSTRACTION Provider, Abstract 02/28/2025 External Device Data STL ABSTRACTION Provider, Abstract 02/28/2025 Orders Only [facility] Oncology and Hematology [place] [address] [place] [phone] Madhu Duvall MD 02/27/2025 10:30 AM CDT Office Visit [facility] Oncology and Hematology [facility] [address] [place] [address] Madhu Duvall MD Chronic anemia (Primary Dx) [...] st Contact Info) Description 06/19/2025 2:15 PM TALEND ETL DEVELOPER Office Visit [facility] Oncology and Hematology - [place] [address] [facility] [address] [place] [address] Madhu Duvall MD [address] [facility] [address] [place] [address] Health Maintenance Due Date Last [...] WITH AUTODIFFERENTIAL (02/27/2025 12:39 PM CDT) Blood Madhu Duvall MD HEMATOLOGY ORDERABLES Final Res ult * METHYLMALONIC ACID (02/27/2025 7:58 AM CDT) Blood Madhu Duvall MD CHEMISTRY ORDERABLES Final Resu lt from Last 3 Months Insurance [facility] FEDERAL
--- OUTSIDE RECORDS SUMMARY | 2025-05-09 08:16 | XMS_ITS | Clinical Summary ---
Author Organization [facility] Address [address] [place] [address] Phone Care Team Providers Care Manager Of Allied Health Services Name Role Phone DavidlynnDiann nieves SENIOR J2EE DEVELOPER, WAREHOUSE INCENTIVE SELECTOR Primary Care Provi scot Antonia Rodriguez MD Unavailable [phone] Malvin Estrada MD Unavailable [phone] Taqueria Gresham MD Unavailable [phone] Montana Lahkani MD Unavailable Waqar Frankel MD Unavailable [phone] Allergies Active Allergy Reactions Criticality Noted Date [...] Type Department Care Team Description 04/11/2025 Telephone [facility] [address] [place] [address] Taqueria Gresham MD 04/07/2025 Telephone [facility] [address] [place] [address] Taqueria Gresham MD Follow-up (Please see dictated note.) 04/06/2025 10:30 AM CDT Office Visit [facility] [address] [place] [address] Taqueria Gresham MD Right leg weakness (Primary Dx); Cervical cancer, FIGO stage IB; History of therapeutic radiation; History of cancer chemotherapy Discharge Disposition: Discharged to home or Selfcare 04/06/2025 Travel 04/04/2025 Travel 04/01/2025 6:59 AM CDT - 04/01/2025 11:59 PM CDT [facility] [address] [place] [address] Barry Martin MD Discharge Disposition: Discharged to home or Selfcare 03/30/2025 Travel 03/13/2025 Travel from Last 3 Months Family History [...] st Contact Info) Description 05/18/2025 9:15 AM GUM ROLLING MACHINE TENDER Office Visit [facility] - Neurology [facility] [address] [place] [address] Waqar Frankel MD [address] [place] [address] 07/11/2025 10:00 AM GUM ROLLING MACHINE TENDER [facility] [address] [place] [address] Taqueria rGesham MD [address] [place] [address] Discharge Disposition: Discharged to home or Selfcare Health Maintenance Due Date Last Done Comments Diabetes: Eye Exam 1960 Diabetes: Foot Exam 1960 Diabetes: Hemoglobin A1c 1960 Hepatitis C Virus (HCV) Screening 1960 Mammogram 1960 Pneumococcal Immunization (50+ years) (1 of 2 - PCV) 10/04/1979 Zoster Immunization (1 of 2) 10/04/1979 Cologuard 2005 Immunochemical Fecal Occult Blood 2005 SARS-COV-2 Immunization (7 - Pfizer risk season) 2025 02/28/2025, 05/28/2023, 05/06/2022, Additional history exists Diabetes: Nephropathy Screening 04/21/2026 04/21/2025, 04/21/2025, 12/12/2024, Additional history exists Colonoscopy 10/12/2034 10/12/2024 Colorectal [...] Procedure Name Priority Date/Time Associated Diagnosis Comments LAB - MISCELLANEOUS 04/21/2025 1 2:00 AM GUM ROLLING MACHINE TENDER COMPLETE BLOOD COUNT (CBC) WITH DIFF 04/21/2025 12:00 AM GUM ROLLING MACHINE TENDER CREATINE KINASE (CK) TOTAL 04/21/2025 12:00 AM GUM ROLLING MACHINE TENDER CMP (COMPREHENSIVE METABOLIC PANEL) 04/21/2025 12:00 AM GUM ROLLING MACHINE TENDER CMP (COMPREHENSIVE METABOLIC PANEL) Routine 04/21/2025 12:00 AM GUM ROLLING MACHINE TENDER COMPLETE BLOOD COUNT (CBC) WITH DIFF Routine 04/21/2025 12:00 AM GUM ROLLING MACHINE TENDER CT ABDOMEN PELVIS W/ CONTRAST Routine 04/01/2025 7:25 AM CDT Cervical cancer, FIGO stage IIB HM COLONOSCOPY 10/12/2024 12:00 AM CDT from Last 3 Months or Most Recently Relevant to Health Maintenance Results * LAB - MISCELLANEOUS (04/21/2025 12:00 AM GUM ROLLING MACHINE TENDER) 04/21/2025 Taqueria Gresham MD CHEMISTRY ORDERABLES Fi nal Result Performing Organization Address [facility] de Phone Number SCAN * CREATINE KINASE (CK) TOTAL (04/21/2025 12:00 AM GUM ROLLING MACHINE TENDER) 04/21/2025 Taqueria Gresham MD CHEMISTRY ORDERABLES Fi nal Result Performing Organization Address [facility] de Phone Number SCAN * CMP (COMPREHENSIVE METABOLIC PANEL) (04/21/2025 12:00 AM GUM ROLLING MACHINE TENDER) Only the most recent of2 resultswithin the time period is included. 04/21/2025 Taqueria Gresham MD CHEMISTRY ORDERABLES Fi nal Result Performing Organization Address [facility] de Phone Number SCAN * COMPLETE BLOOD COUNT (CBC) WITH DIFF (04/21/2025 12:00 AM GUM ROLLING MACHINE TENDER) Only the most recent of2 resultswithin the time period is included. 04/21/2025 Taqueria Gresham MD HEMATOLOGY ORDERABLES F inal Result Performing Organization Address [facility] de Phone Number SCAN * CT ABDOMEN PELVIS W/ CONTRAST (04/01/2025 [...] CDT DICTATING PHYSICIAN: Sean Sharma M.D. - [facility] Examination: CT abdomen and pelvis [...] 04/01/2025 DICTATING PHYSICIAN: [facility]: CT abdomen and [...] CONSERUS RESULTS COMMUNICATION: Communication of results utilizing today Conserus Results Notification process 04/01/2025 9:57 AM. Barry Martin MD IMG CT ORDERABLES Final Result * COLONOSCOPY (10/12/2024 12:00 AM CDT) 10/12/2024 us Provider Scan PROCEDURE/MINOR SURGICAL ORDERAB LES Final Result SCAN from Last 3 Months or Most Recently Relevant to Health Maintenance Insurance [facility] Care Teams Manager Of Allied Health Services Relationship Specialty Start Date End Date Diann Crain, SENIOR J2EE DEVELOPER, WAREHOUSE INCENTIVE SELECTOR [address] [place] [address] PCP - General Advanced Practice Nurse 10/10/24 Antonia Rodriguez MD [address] [id number] Consulting Physician Gynecologic Oncology 10/11/24 Malvin Estrada MD [address] [place] [address] Consulting Physician Medical Oncology 10/11/24 Taqueria Gresham MD [address] [place] [address] Consulting Physician Radiation Oncology 10/11/24 Montana Lakhani MD [address] [place] [address] Consulting Physician Radiation Oncology 10/12/24 Waqar Frankel MD [address] [place] [id number] Consulting Physician Neurology 04/07/25
--- OUTSIDE RECORDS SUMMARY | 2025-05-09 08:16 | XMS_ITS | Clinical Summary ---
Author Organization [facility] Address [address] [facility] [place] [address] Care Team Providers Care Newspaper Illustrator Name Role Phone Diann Crain BUSINESS RELATIONSHIP MANAGER-SIGNAL SUPERVISOR Primary Care Provid er Source Comments [facility],non-owned Affiliates and Associated Physician Practices is amultiple site organization consisting of ambulatory clinics and hospital sitesin [place], [place], [place] and [place]. This disclosure is being madepursuant to the Care Everywhere program and may not contain all information available regarding this patient. Last updated 18.[facility] Allergies Active Allergy Reactions Criticality Noted [...] for Pain 40 tablet 1 5 Active Additional Information Patient not taking.Reported on [...] with morning and evening meal 5 Active phenazopyridin e (Pyridium) 200 MG tablet Take 1 (one) tablet by mouth 3 times daily with meals 30 tablet 5 Active Additional Information Patient not taking.Reported on 04/05/2025 cyanocobalamin (Vitamin B-12) 1000 MCG tablet Take 1 (one) tablet by mouth once daily Active lisinopril (Prinivil; Zestril) 40 MG tablet Take 1 (one) tablet by mouth once daily Active ferrous sulfate 325 (65 FE) MG tablet Take 1 (one) tablet by mouth once daily Active Active Problems Problem Noted Date Diagnosed Date Diabetes mellitus, type 2 01/05/2025 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 x 12/27/2024 Encounters Date Type Department Care Team Description 04/19/2025 2:30 PM VAMP STRAP IRONER - 04/19/2025 11:59 PM VAMP STRAP IRONER Hospital Encounter [facility] - Outside Imaging Discharge Disposition: Home or Self Care 04/05/2025 1:15 PM CDT Office Visit [facility] - Rad/Onc [address] [place] [address] Montana Lakhani MD 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 (HCC) (Primary Dx) 04/05/2025 1:00 PM CDT - 05/07/2025 11:59 PM VAMP STRAP IRONER Hospital Encounter [facility] - Radiation Oncology [address] [place] [address] Montana Lakhani MD Discharge Disposition: Home or Self Care 04/05/2025 1:00 PM CDT - 05/07/2025 11:59 PM VAMP STRAP IRONER Hospital Encounter [facility] - Radiation Oncology [address] [place] [address] Montana Lakhani MD Discharge Disposition: Home or Self Care 04/05/2025 Travel 04/04/2025 Travel 02/07/2025 Telephone [facility] - [facility]Onc [address] [place] [phone] Argentina Rosenthal RN Vomiting 02/06/2025 Telephone [facility] [address] [place] [phone] Argentina Rosenthal RN Vomiting from Last 3 Months Family History Medical [...] on file Legal Sex Female 1:25 PM VAMP STRAP IRONER Gender Identity Not on file Sexual Orientation [...] st Contact Info) Description 07/18/2025 1:00 PM VAMP STRAP IRONER Office Visit [facility] - Rad[facility]Onc [address] [place] [address] Montana Lakhani MD [address] [place] [address] Health Maintenance Due Date Last [...] 50+ (1 of 2 - PCV) 10/04/1979 Cervical Cancer Screening 1981 PAP SMEAR 1981 PAP with HPV 1990 Respiratory Syncytial Virus (RSV) Vaccine Pt: or over 60 yrs (1 - Risk 50-74 years 1-dose series) 2010 ZOSTER VACCINE (1 of 2) 2010 DIABETES - URINE PROTEIN SCREENING 06/15/2024 DIABETES [...] Pelvis Outside (04/01/2025 2:41 PM CDT) Narrative [facility] - 04/19/2025 2:42 PM VAMP STRAP IRONER This is a study from an outside facility that has been uploaded into PACS. us Provider [employer] IMAGING Final Result Performing Organization Address City/State/[facility] Co de Phone Number [facility] [address] [place] [address] from Last 3 Months Insurance [employer] Care Teams Newspaper Illustrator Relationship Specialty Start Date End Date Diann Crain, BUSINESS RELATIONSHIP MANAGER-SIGNAL SUPERVISOR [address] [place] [address] PCP - General Nurse Practitioner Family 09/15/24
--- OUTSIDE RECORDS SUMMARY | 2025-05-09 08:16 | XMS_ITS ---
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 Past Treatment and Therapy Plans No past plan information found. Radiation Treatments * Course [id number] 12/22/2024 - 01/10/2025 Treatment Period Energy Fraction Dose Fractions Total Dose Plans Planned Cervix 3000 12/22/2024 - 01/10/2025 5 / 5 3,000 cGy Reference Points Delivered
--- OUTSIDE RECORDS SUMMARY | 2025-05-09 08:16 | XMS_ITS ---
Author Organization [facility] Address [address] [place] [address] Phone Care Team Providers Care Crystal Growing Technician Name Role Phone Diann Crain OVEN TENDER, CLAY MIXER Primary Care Provi scot Antonia Rodriguez MD Unavailable [phone] Malvin Estrada MD Unavailable [phone] Taqueria Gresham MD Unavailable [phone] Montana Lakhani MD Unavailable Waqar Frankel MD Unavailable [phone] Active Problems Problem Noted Date Diagnosed Date [...]
[2025-05-09 09:25] LABS: Alanine Aminotransferase 14 U/L (6-35); Albumin Level 4.4 g/dL (3.5-5.1); Alkaline Phosphatase 51 U/L (38-126); Anion Gap 10 mmol/L (4-12); Aspartate Amino Transferase 19 U/L (14-36); Bilirubin,Total 0.2 mg/dL (0.2-1.3); Blood Urea Nitrogen 37 mg/dL (7-17); Calcium 10.2 mg/dL (8.4-10.2); Carbon Dioxide 31 mmol/L (22-30); Chloride 97 mmol/L (98-107); Cholesterol 199 mg/dL (0-200); Estimated Glomerular Filt Rate 41; Glucose 100 mg/dL (65-110); HDL Direct 72 mg/dL; Osmolality Calculated 294 mOsm/kg (285-295); Potassium 5.7 mmol/L (3.4-5.0); Sodium 138 mmol/L (137-145); Total Protein 7.0 g/dL (6.3-8.2); Triglycerides 166 mg/dL (<150)
[2025-05-09 09:41] LABS: Free T4 Free Thyroxine 1.18 ng/dL (0.78-2.19)
[2025-05-09 09:55] LABS: Thyroid Stimulating Hormone 1.540 uIU/mL (0.465-4.680)
[2025-05-11 15:09] LABS: GAD-65 Antibody <5.0 U/mL (0.0-5.0)
== END 2025-05-09 08:13 | disposition home or self-care (01) ==
LOC: CHSLAB 08:13
PROVIDERS: PCP Nurse Practitioner Family; Visit Provider Internal Medicine
DX: E87.6 Hypokalemia (principal); E83.42 Hypomagnesemia; I10 Essential (primary) hypertension; E87.5 Hyperkalemia; E86.0 Dehydration; E11.9 Type 2 diabetes mellitus without complications
CPT/HCPCS: 36415; 80053; 80061; 84439; 84443; 84681; 86341

== ENCOUNTER 2025-05-09 13:51 | Emergency (ER) | payer BC, SELFPAY ==
--- OUTSIDE RECORDS SUMMARY | 2024-08-04 07:00 | XMS_ITS ---
Author Organization [facility] Address [address] [place], [place] [id number] Care Team Providers Care Placement Secretary Name Role Phone ABEL AHMADIIC Unavailable [phone] Diann Crain Unavailable Unavailable Allergies Allergen (clinical drug ingredient) Drug/Non Drug Allergy documented on EMR Reaction Allergy Type Onset Date Status erythromycin Erythromycin Unknown Drug Allergy A ctive Penicillin Unknown Drug Allergy Active Substance with sulfonamide structure and antibacterial mechanism of action (substance) Sulfa Antibiotics Unknown Drug Allergy Active REASON FOR VISIT Patient presents for at-risk foot care . The patient has painful toenails that are causing difficulty with ambulation and shoegear. The onset is gradual. The patient has diabetes mellitus Medications Medication SIG (Take, Route, Frequency, Duration) Notes Start Date End Date Status Magnesium 300 MG Capsule 1 capsule with a meal Orally Once a day Active Metoclopramide HCl 5 MG/ML Solution 1 mL before meals Injection Twice a day Active Pantoprazole Sodium 20 MG Tablet Delayed Release 1 tablet 1/2 to 1 hour before morning meal Orally Once a day Active Metformin ER & Diagnostic Test Active Social History Sex Assigned At : Social History Observation Description Sex Assigned At Female Encounters Encounter Location Date Provider Diagnosis [address] [id number] 08/04/2024 JESUS MANUEL AHMADI Tinea unguium B35.1 ; Pain in right toe(s) M79.674 ; Pain in left toe(s) M79.675 ; Atherosclerosis of [place] arteries of extremities with intermittent claudication, bilateral legs I70.213 and Type 2 diabetes mellitus with other circulatory complications E11.59 Assessments Encounter Date Diagnosis (ICD Code) Assessment Notes Treatment Notes Treatment Clinical Notes Section Notes 08/04/2024 Tinea unguium (ICD-10 - B35.1) NAIL DEBRIDEMENT: Nails 1-5 Bilateral were debrided extensively with nail nippers and emery board, reducing length and girth to pink healthy tissue with any subungual debris and necrotic tissue removed 08/04/2024 Pain in right toe(s) (ICD-10 - M79.674) 08/04/2024 Pain in left toe(s) (ICD-10 - M79.675) 08/04/2024 Atherosclerosis of [place]inez arteries of extremities with intermittent claudication, bilateral legs (ICD-10 - I70.213) 08/04/2024 Type 2 diabetes mellitus with other circulatory complications (ICD-10 - E11.59) Diabetic Foot Care: The patient was educated on diabetes and the lower extremity. The patient was instructed to check his feet daily to report any problems or signs of infection immediately. The patient was provided written information on Diabetic Foot Care as well as the Amputation Prevention Guide. Plan Of Treatment Treatment Notes Assessment Notes Tinea unguium NAIL DEBRIDEMENT: Na ils 1-5 Bilateral were debrided extensively with nail nippers and emery board, reducing length and girth to pink healthy tissue with any subungual debris and necrotic tissue removed Type 2 diabetes mellitus wit h other circulatory complications Diabetic Foot Care: The patient was educated on diabetes and the lower extremity. The patient was instructed to check his feet daily to report any problems or signs of infection immediately. The patient was provided written information on Diabetic Foot Care as well as the Amputation Prevention Guide. Next Appt Details Follow Up: 10 - 12 weeks, Re ason: At-Risk Foot care, sooner if problems develop. Provider Name:AZUCENA ANDRADE, 07/06/2025 11:10:00 AM, [address] [place] [address], [id number], History and Physical Notes * HPI (History of Present Illness) Category Sub-Category Detail Notes Category Not es HPI New Complaint Patient presents for a new patient consultation. Patient recently found out she is diabetic and thought that this was best. Patient presents to the office for diabetic foot care. Patient states that their nails are thickened, elongated and painful. Patient states that it is aggravated by shoe gear. Onset is gradual., Patient denies taking blood thinners., Date last seen by Dr. Crain was 07/2024., Initials mca Examination Category Sub-Category Detail Notes Category Not es Dermatologic Skin findings: Skin is thin, at rophic and lacking pedal hair Nail pathology: Nails 1, 2, 3, 4, an d 5 bilateral are elongated, thick, discolored, and dystrophic with subungual debris. They are painful to palpation Neurologic [place] 5.07 monofilamen t diminished protective sensation via 5.07 g swmf bilateral Gross sensation Grossly intact to li ght touch. There is negative Tinel's sign Vascular Dorsalis pedis pulse: 1/4 bilateral Edema: No edema bilateral Capillary refill: greater than 3 secon ds Posterior tibial pulse: 0/4 bilateral Physical Examination General appearance: Alert, pleasant, well-nourished and in no acute distress Musculoskeletal Muscle Strength Muscle strength is 5/5 in regards to dorsiflexion, plantarflexion, inversion, and eversion in bilateral lower extremities Progress Notes * Ida GRANDE RDOB: 1 (64 yo F)Acc No.[id number]:08/04/2024 Progress Notes Patient: Ida Frye Provider: Oliver Ahmadi DPM :1960 A ge:63 Y S ex:Female Date:08/04/2024 Address:[address] [place] [address], [address] [place] [address] Subjective: * Chief Complaints: * Aixa nick presents for at-risk foot care . The patient has painful toenails that are causing difficulty with ambulation and shoegear. The onset is gradual. The patient has diabetes mellitus * HPI: H PI: New Complaint Aixa nick presents for a new patient consultation. Patient recently found out she is diabetic and thought that this was best. Aixa nick presents to the office for diabetic foot care. Patient states that their nails are thickened, elongated and painful. Patient states that it is aggravated by shoe gear. Onset is gradual., Aixa nick denies taking blood thinners., D ate last seen by Dr. Breann gama as 07/2024., I [facility]. * ROS: G eneral / Constitutional: Patient denies c hills, fever, weight loss. ? M usculoskeletal: Patient denies w eakness, broken foot bone. ? P eripheral Vascular: Patient complains of d ecreased sensation in extremities.? S kin: Patient complains of f ungal nails, nail changes. ? N eurologic: Patient denies b alance difficulty, confusion, difficulty speaking, dizziness. * Medical History: Neuropathy Arthritis Diabetic Varicose veins Medical History Verified * Surgical History: Denies Past Surgical History. Surgical History verified. * Hospitalization/Major Diagno stic Procedure: Denies Past Hospitalization. Hospitalization Verified. * Family History: N o Family History documented.. F amily History Verified.. * Social History: Social History Verified. No Social History documented. * Medications: T akingMagnesium 300 MG Capsule 1 capsule with a meal Orally Once a day Metoclopramide HCl 5 MG/ML Solution 1 mL before meals Injection Twice a day Pantoprazole Sodium 20 MG Tablet Delayed Release 1 tablet 1/2 to 1 hour before morning meal Orally Once a day Metformin ER & Diagnostic Test Medication List reviewed and reconciled with the patientTaking Magnesium 300 MG Capsule 1 capsule with a meal Orally Once a day Taking Metoclopramide HCl 5 MG/ML Solution 1 mL before meals Injection Twice a day Taking Pantoprazole Sodium 20 MG Tablet Delayed Release 1 tablet 1/2 to 1 hour before morning meal Orally Once a day Taking Metformin ER & Diagnostic Test Medication List reviewed and reconciled with the patient * Allergies: S ulfa Antibiotics: AllergyPenicillin: AllergyErythromycin: AllergyyesAllergies Verified. Objective: * Examination: P hysical Examination: General appearance: A lert, pleasant, well-nourished and in no acute distress. D ermatologic: Skin findings: S kin is thin, atrophic and lacking pedal hair. Nail pathology: N ails 1, 2, 3, 4, and 5 bilateral are elongated, thick, discolored, and dystrophic with subungual debris. They are painful to palpation. ? V ascular: Dorsalis pedis pulse: 1 /4 b ilateral. Posterior tibial pulse: 0 /4 bilateral. Capillary refill: g reater than 3 seconds. Edema: N o edema bilateral. N eurologic: [place] 5.07 monofilament d iminished protective sensation via 5.07 g swmf bilateral. Gross sensation G rossly intact to light touch. There is negative Tinel's sign. M usculoskeletal: Muscle Strength M uscle strength is 5/5 in regards to dorsiflexion, plantarflexion, inversion, and eversion in bilateral lower extremities. ? Assessment: * Assessment: 1. T inea unguium - B35.1 (Primary) 2 . P ain in right toe(s) - M79.674? 3. P ain in left toe(s) - M79.675 4 . A therosclerosis of tor[place] arteries of extremities with intermittent claudication, bilateral legs - I70.213 5 . T ype 2 diabetes mellitus with other circulatory complications - E11.59 Plan: * Treatment: 2. T ype 2 diabetes mellitus with other circulatory complications Notes: Diabetic Foot Care: The patient was educated on diabetes and the lower extremity. The patient was instructed to check his feet daily to report any problems or signs of infection immediately. The patient was provided written information on Diabetic Foot Care as well as the Amputation Prevention Guide. * Follow Up: 1 0 - 12 weeks (Reason: At-Risk Foot care, sooner if problems develop.) Billing Information: * Visit Code: 13159 Office Visit, New Pt., Level 3. * Electronic signature of JESUS MANUEL AHMADI DPM on 05/09/2025 at 03:57 PM MACHINE DYER Sign off status: Pending * Provider: Olvier Ahmadi DPM Date: 0 08/04/2024 Generated for Sara ovalle/Bowen/Farheenitting on: 1 07/09/2024 03:57 PM MACHINE DYER
--- OUTSIDE RECORDS SUMMARY | 2025-02-23 05:40 | XMS_ITS ---
Author Organization [facility] Address [address] [place], [place] [id number] Care Team Providers Care Bead Flipper Name Role Phone JESUS MANUEL AHMADI Unavailable [phone] Diann Crain Unavailable Unavailable AZUCENA MYLES Unavailable [phone] Allergies Allergen (clinical drug ingredient) Drug/Non Drug [...] Duration) Notes Start Date End Date Status metFORMIN HCl ER 500 MG Tablet Extended Release 24 Hour 500 MG ORALLY TWICE A DAY Oral; Duration: 45 Days Active Insulin Glargine-yfgn 100 UNIT/ML Solution Pen-injector 15 UNIT (0.15 ML) SUBCUTANEOUSLY EVERY EVENING Subcutaneous; Duration: 90 Days Active Docusate Sodium 100 MG Capsule TAKE 1 CAPSULE BY MOUTH TWICE A DAY Oral; Duration: 30 Days Active OneTouch Verio - Strip TWICE A DAY In Vi tro; Duration: 25 Days Active Ibuprofen 600 MG Tablet TAKE 1 TABLET BY MOUTH EVERY 6 HOURS NEEDED FOR PAIN Oral; Duration: 10 Days Active Metoclopramide HCl 5 MG/ML Solution 1 mL before meals Injection Twice a day Active Pantoprazole Sodium 20 MG Tablet Delayed Release 1 tablet 1/2 to 1 hour before morning meal Orally Once a day Active Magnesium 300 MG Capsule 1 capsule with a meal Orally Once a day Active Metformin ER & Diagnostic Test Active FreeStyle Kim 3 Sensor - Miscellaneous ; Duration: 14 Days Active Social History Sex Assigned At : Social History Observation Description Sex Assigned At Female Vital Signs Height 68 in 02/23/2025 Weight 160 lbs 02/23/2025 BMI 24.33 kg/m2 02/23/2025 Height-cm 172.72 cm 02/23/2025 Weight-kg 72.58 kg 02/23/2025 Encounters Encounter Location Date Provider Diagnosis [address] [id number] 02/23/2025 AZUCENA MYLES Atherosclerosis of [place] arteries of extremities with intermittent claudication, bilateral legs I70.213 ; Onychomycosis B35.1 ; Pain in right toe(s) M79.674 and Pain in left toe(s) M79.675 Assessments Encounter Date Diagnosis (ICD Code) Assessment Notes Treatment Notes Treatment Clinical Notes Section Notes 02/23/2025 Atherosclerosis of [place] arteries of extremities with intermittent claudication, bilateral legs (ICD-10 - I70.213) Patient educated on risks and aggravating factors of PVD, including conservative treatment options such as a diet and exercise regimen to aid in slowing progression of vascular disease. Check and protect LE bilateral daily. Call if any changes or concerns. 02/23/2025 Onychomycosis (ICD-10 - B35.1) Nails 1-5 Bilateral were debrided extensively with nail nippers and emery board, reducing length and girth to pink healthy tissue with any subungual debris and necrotic tissue removed 02/23/2025 Pain in right toe(s) (ICD-10 - M79.674) 02/23/2025 Pain in left toe(s) (ICD-10 - M79.675) Plan Of Treatment Treatment Notes Assessment Notes Atherosclerosis of [place] ar teries of extremities with intermittent claudication, bilateral legs Patient educated on risks and aggravatin g factors of PVD, including conservative treatment options such as a diet and exercise regimen to aid in slowing progression of vascular disease. Check and protect LE bilateral daily. Call if any changes or concerns. Onychomycosis Nails 1-5 Bilateral were debrided extensively with nail nippers and emery board, reducing length and girth to pink healthy tissue with any subungual debris and necrotic tissue removed Next Appt Details Follow Up: 9 weeks, Reason: Provider Name:AZUCENA ANDRADE, 07/06/2025 11:10:00 AM, [address] [place], [place], [id number], History and Physical Notes * HPI (History of Present Illness) Category Sub-Category Detail Notes Category Not es HPI General care Patient presents to the office for diabetic foot care. Patient states that their nails are thickened, elongated and painful. Patient states that it is aggravated by shoe gear. Onset is gradual., Patient denies taking blood thinners., Date last seen by Dr. Crain was 01/2025., Initials nd Examination Category Sub-Category Detail Notes Category Not [...] Temperature gradient: warm to cool bilat erally Progress Notes * Ida GRANDE RDOB: [birth year] (64 yo F)Acc No.[id number]:02/23/2025 Patient: Ida Frye Provider: Jeff MYLES :1960 A ge:64 Y S ex:Female Date:02/23/2025 Address:[address] [place] [address], [address] [place], [place] [id number] Subjective: * Chief Complaints: * * General care * HPI: H PI: General care P park presents to the office for diabetic foot care. Patient states that their nails are thickened, elongated and painful. Patient states that it is aggravated by shoe gear. Onset is gradual., Patient denies taking blood thinners., Date last seen by Dr. Crain was 01/2025., Initials nd. * ROS: G eneral / Constitutional: Patient [...] Rash - Criticality Unknown - Onset Date 04/29/2018yesAllergies Verified. Objective: * Vitals: S hoe Size: 8.5, [...] B35.1 (Primary) 2 . A therosclerosis of [place] arteries of extremities with intermittent claudication, bilateral legs - I70.213 3 . P ain in right toe(s) - M79.674 4 . P ain in left toe(s) - M79.675 Plan: * Treatment: 2. A therosclerosis of [place] arteries of extremities with intermittent claudication, bilateral legs Notes: Patient educated on risks and aggravating factors of PVD, including conservative treatment options such as a diet and exercise regimen to aid in slowing progression of vascular disease. Check and protect LE bilateral daily. Call if any changes or concerns. * Follow Up: 9 weeks Billing Information: * Visit Code: 85489 Office Visit, Est Pt., Level 3. * Procedure Codes: * Electronic signature of LIZZY MYLES DPM on 05/09/2025 at 03:57 PM SETTLEMENT PROCESSOR Sign off status: Pending * Provider: Jeff MYLES Date: 0 02/23/2025 Generated for Sara ovalle/Bowen/Aranza on: 1 07/09/2024 03:57 PM SETTLEMENT PROCESSOR
--- OUTSIDE RECORDS SUMMARY | 2025-04-05 12:00 | XMS_ITS | Encounter Summary ---
Author Organization [facility] Health Address [address] [place] [address] Care Team Providers Care Special Assemblies Supervisor Name Role Phone Diann Crain OPTOMETRY ASSISTANT-SEED TRUCKER Primary Care Provid er Encounter Details Date Type Department Care Team (Latest Contact Info) Description 04/05/2025 1:00 PM CDT - 05/07/2025 11:59 PM PHARMACOMETRICIAN Hospital Encounter [facility] Cancer Care - Radiation Oncology [address] [place] [address] Montana Lakhani MD [address] [place], [place] [phone] Discharge Disposition: Home or Self Care Social [...] Date Recorded Patient Health Questionnaire-2 Score 0 04/05/2025 Comments Unknown Sex and Gender Information Value Date Recorded Sex Assigned at Not on file Legal Sex Female 1:25 PM PHARMACOMETRICIAN Gender Identity Not on file Sexual Orientation Not on file documented as of this encounter Functional Status * Over the past 2 weeks, how often have you been bothered by any of the following problems? Question Answer Date of Assessment Author Little interest or pleasure in doing things Not at all 04/05/2025 1:28 PM Argentina Urena RN Feeling down, depressed, or hopeless Not at all 04/05/2025 1:28 PM Argentina Urena RN Patient Health Questionnaire-2 Score 0 04/05/2025 1:28 PM Shelby Urena RN documented as of this encounter Medications at Time of Discharge cyanocobalamin (Vitamin B-12) 1000 MCG tablet Take 1 (one) tablet by mouth once daily docusate sodium (Colace) 100 MG capsule Take 1 (one) capsule by mouth 2 times daily 60 capsule 1 09/19/2024 ferrous sulfate 325 (65 FE) MG tablet Take 1 (one) tablet by mouth once daily gabapentin (Neurontin) 300 MG capsule Take 1 [...] needed Sliding scale if needed > 150 lisinopril (Prinivil; Zestril) 40 MG tablet Take 1 (one) tablet by mouth once daily magnesium oxide (Mag-Ox) 400 MG tablet Take 1 (one) tablet by mouth once daily metFORMIN (Glucophage) 500 MG tablet Take 1 (one) tablet by mouth 2 times daily with morning and evening meal nitrofurantoin monohyd macro crystals (Macrobid) 100 MG capsule Take 1 (one) capsule by mouth 2 times daily with morning and evening meal 12/19/2024 OLANZapine (ZyPREXA) 5 MG tablet Take 1 (one) tablet by mouth once daily Takes 1 tab in the evening every day for 4 days after each weekly chemo. ondansetron (Zofran) 4 MG tablet Take 2 (two) tablets by mouth every 8 hours as needed for Nausea/Vomiting phenazopyridine (Pyridium) 200 MG tablet Take 1 (one) tablet by mouth 3 times daily with meals 30 tablet 01/03/2025 prochlorperazin e (Compazine) 10 MG tablet Take 1 (one) tablet by mouth every 6 hours as needed for Nausea/Vomiting documented as of this encounter Plan of Treatment Upcoming Encounters Date Type Department Care Team (Late st Contact Info) Description 07/18/2025 1:00 PM PHARMACOMETRICIAN Office Visit [facility] - Rad/Onc [address] [place] [address] Montana Lakhani MD [address] [place] [address] documented as of this encounter Visit Diagnoses Not on filedocumented in this encounter Care Teams Special Assemblies Supervisor Relationship Specialty Start Date End Date Diann Crain, OPTOMETRY ASSISTANT-SEED TRUCKER [address] [place] [address] PCP - General Nurse Practitioner Family 09/15/24 documented as of this encounter
--- OUTSIDE RECORDS SUMMARY | 2025-04-05 12:00 | XMS_ITS | Encounter Summary ---
Author Organization [facility] Health Address [address] [facility] [place] [address] Care Team Providers Care River Rat Name Role Phone Diann Crain STILL TENDER-COLLATOR Primary Care Provid er Encounter Details Date Type Department Care Team (Latest Contact Info) Description 04/05/2025 1:00 PM CDT - 05/07/2025 11:59 PM SQUARE CUTTER Hospital Encounter [facility] Cancer Care - Radiation Oncology [address] [place] [address] Montana Lakhani MD [address] [place], [place] [phone] Discharge Disposition: Home or Self Care Social [...] on file Legal Sex Female 1:25 PM SQUARE CUTTER Gender Identity Not on file Sexual Orientation [...] st Contact Info) Description 07/18/2025 1:00 PM SQUARE CUTTER Office Visit [facility] - Rad/Onc [address] [place] [address] Montana Lakhani MD [address] [place] [address] documented as of this encounter Visit Diagnoses Not on filedocumented in this encounter Care Teams River Rat Relationship Specialty Start Date End Date Diann Crain, STILL TENDER-COLLATOR [address] [place] [address] PCP - General Nurse Practitioner Family 09/15/24 documented as of this encounter
--- OUTSIDE RECORDS SUMMARY | 2025-04-05 12:00 | XMS_ITS | Encounter Summary ---
Author Organization [facility] Health Address [address] [facility] [place] [address] Care Team Providers Care Health Technician Hearing Name Role Phone Diann Crain LAWN AND TREE SERVICE SPRAY SUPERVISOR-ALMOND PASTE MOLDER Primary Care Provid er Encounter Details Date Type Department Care Team (Latest Contact Info) Description 04/05/2025 1:00 PM CDT - 05/07/2025 11:59 PM WHEEL POLISHER Hospital Encounter [facility] Cancer Care - Radiation Oncology [address] [place] [address] Montana Lakhani MD [address] [place], [place] [phone] Discharge Disposition: Home or Self Care Social [...] on file Legal Sex Female 1:25 PM WHEEL POLISHER Gender Identity Not on file Sexual Orientation [...] st Contact Info) Description 07/18/2025 1:00 PM WHEEL POLISHER Office Visit [facility] - Rad/Onc [address] [place] [address] Montana Lakhani MD [address] [place] [address] documented as of this encounter Visit Diagnoses Not on filedocumented in this encounter Care Teams Health Technician Hearing Relationship Specialty Start Date End Date Diann Crain, LAWN AND TREE SERVICE SPRAY SUPERVISOR-ALMOND PASTE MOLDER [address] [place] [address] PCP - General Nurse Practitioner Family 09/15/24 documented as of this encounter
--- OUTSIDE RECORDS SUMMARY | 2025-04-05 12:00 | XMS_ITS | Encounter Summary ---
Author Organization [facility] Health Address [address] [place] [address] Care Team Providers Care Surtass Analyst Name Role Phone Diann Crain RADIATOR TESTER-GROUTER HELPER Primary Care Provid er Encounter Details Date Type Department Care Team (Latest Contact Info) Description 04/05/2025 1:00 PM CDT - 05/07/2025 11:59 PM STILL OPERATOR BATCH OR CONTINUOUS Hospital Encounter [facility] Cancer Care - Radiation Oncology [address] [place] [address] Montana Lakhani MD [address] [place], [place] [phone] Discharge Disposition: Home or Self Care Social [...] on file Legal Sex Female 1:25 PM STILL OPERATOR BATCH OR CONTINUOUS Gender Identity Not on file Sexual Orientation [...] st Contact Info) Description 07/18/2025 1:00 PM STILL OPERATOR BATCH OR CONTINUOUS Office Visit [facility] - Rad/Onc [address] [place] [address] Montana Lakhani MD [address] [place] [address] documented as of this encounter Visit Diagnoses Not on filedocumented in this encounter Care Teams Surtass Analyst Relationship Specialty Start Date End Date Diann Crain, RADIATOR TESTER-GROUTER HELPER [address] [place] [address] PCP - General Nurse Practitioner Family 09/15/24 documented as of this encounter
--- OUTSIDE RECORDS SUMMARY | 2025-05-04 05:40 | XMS_ITS ---
Author Organization [facility] Address [address] [place], [place] [id number] Care Team Providers Care Geriatric Nurse Name Role Phone JESUS MANUEL AHMADI Unavailable [phone] Diann Crain Unavailable Unavailable AZUCENA MYLES Unavailable [phone] Allergies Allergen (clinical drug ingredient) Drug/Non Drug [...] Duration) Notes Start Date End Date Status Insulin Glargine-yfgn 100 UNIT/ML Solution Pen-injector 15 UNIT (0.15 ML) SUBCUTANEOUSLY EVERY EVENING Subcutaneous; Duration: 90 Days Active Magnesium 300 MG Capsule 1 capsule with a meal Orally Once a day Active Pantoprazole Sodium 20 MG Tablet Delayed Release 1 tablet 1/2 to 1 hour before morning meal Orally Once a day Active Metoclopramide HCl 5 MG/ML Solution 1 mL before meals Injection Twice a day Active Metformin ER & Diagnostic Test Active metFORMIN HCl ER 500 MG Tablet Extended Release 24 Hour 500 MG ORALLY TWICE A DAY Oral; Duration: 45 Days Active Docusate Sodium 100 MG Capsule TAKE 1 CAPSULE BY MOUTH TWICE A DAY Oral; Duration: 30 Days Active Ibuprofen 600 MG Tablet TAKE 1 TABLET BY MOUTH EVERY 6 HOURS NEEDED FOR PAIN Oral; Duration: 10 Days Active OneTouch Verio - Strip TWICE A DAY In Vi tro; Duration: 25 Days Active FreeStyle Kim 3 Sensor - Miscellaneous ; Duration: 14 Days Active Social History Sex Assigned At : Social History Observation Description Sex Assigned At Female Vital Signs Height 68 in 05/04/2025 Weight 160 lbs 05/04/2025 BMI 24.33 kg/m2 05/04/2025 Height-cm 172.72 cm 05/04/2025 Weight-kg 72.58 kg 05/04/2025 Encounters Encounter Location Date Provider Diagnosis [address] [id number] 05/04/2025 AZUCENA MYLES Atherosclerosis of tlingit & ha[place] arteries of extremities with intermittent claudication, bilateral legs I70.213 ; Onychomycosis B35.1 ; Pain in right toe(s) M79.674 and Pain in left toe(s) M79.675 Assessments Encounter Date Diagnosis (ICD Code) Assessment Notes Treatment Notes Treatment Clinical Notes Section Notes 05/04/2025 Atherosclerosis of tlingit & ha[place] arteries of extremities with intermittent claudication, bilateral legs (ICD-10 - I70.213) Patient educated on risks and aggravating factors of PVD, including conservative treatment options such as a diet and exercise regimen to aid in slowing progression of vascular disease. Check and protect LE bilateral daily. Call if any changes or concerns. 05/04/2025 Onychomycosis (ICD-10 - B35.1) Nails 1-5 Bilateral were debrided extensively with nail nippers and emery board, reducing length and girth to pink healthy tissue with any subungual debris and necrotic tissue removed 05/04/2025 Pain in right toe(s) (ICD-10 - M79.674) 05/04/2025 Pain in left toe(s) (ICD-10 - M79.675) Plan Of Treatment Treatment Notes Assessment Notes Atherosclerosis of tlingit & haida ar teries of extremities with intermittent claudication, [...] Provider Name:AZUCENA ANDRADE, 07/06/2025 11:10:00 AM, [address] [place], [place], [id number], History and Physical Notes * HPI (History of Present Illness) Category Sub-Category Detail Notes Category Not es HPI General care Patient presents to the office for diabetic foot care. Patient states that their nails are thickened, elongated and painful. Patient states that it is aggravated by shoe gear. Onset is gradual., Patient denies taking blood thinners., Date last seen by Dr. Go was March 2025., Initials ab Examination Category Sub-Category Detail Notes Category Not [...] Ida GRANDE RDOB: 1 (64 yo F)Acc No.[id number]:05/04/2025 Patient: Ida Frye Provider: Jeff MYLES :1960 A ge:64 Y S ex:Female Date:05/04/2025 Address:[address] [place] [address], [address] [place], [place] [id number] Subjective: * Chief Complaints: * * General care * HPI: H PI: General care P park presents to the office for diabetic foot care. Patient states that their nails are thickened, elongated and painful. Patient states that it is aggravated by shoe gear. Onset is gradual., Patient denies taking blood thinners., Date last seen by Dr. Go was March 2025., Initials ab. * ROS: G eneral / Constitutional: Patient [...] Hospitalization. Hospitalization Verified. * Family History: N on-Contributory.. * Social History: Social History Verified. No [...] B35.1 (Primary) 2 . A therosclerosis of tlingit & ha[place] arteries of extremities with intermittent claudication, bilateral legs - I70.213 3 . P ain in right toe(s) - M79.674 4 . P ain in left toe(s) - M79.675 Plan: * Treatment: 2. A therosclerosis of tlingit & haida arteries of extremities with intermittent claudication, bilateral legs Notes: Patient educated on risks and aggravating factors of PVD, including conservative treatment options such as a diet and exercise regimen to aid in slowing progression of vascular disease. Check and protect LE bilateral daily. Call if any changes or concerns. * Preventive Medicine: Screenings: F all risk screening F all Risk Assessment: N o falls in the past year, P heather of Care: D ocumented. * Follow Up: 9 weeks Billing Information: * Procedure Codes: * Electronic signature of LIZZY MYLES DPM on 05/09/2025 at 03:57 PM NAIL ASSEMBLY MACHINE OPERATOR Sign off status: Pending * Provider: Jeff MYLES Date: 07/04/2024 Generated for Sara ovalle/Bowen/Aranza on: 07/09/2024 03:57 PM NAIL ASSEMBLY MACHINE OPERATOR
[2025-05-09 13:51] VITALS: BP 102/63; PULSE 78; RESP 18; TEMP 36.6; O2SAT 100
[2025-05-09 13:55] VITALS: PULSE 75
--- NOTE | 2025-05-09 14:10 | ED.RECABL ---
HPI - Recheck/Abnormal Lab/Rx General Chief Complaint: Recheck/Abnormal Lab/Rx Stated Complaint: high potassium Time Seen by Provider: 05/09/25 14:09 Source: patient Mode of arrival: ambulatory Limitations: no limitations History of Present Illness HPI narrative: Patient is a 64-year-old female with hyperkalemia noted with the primary doctor today and sent to the ER for further evaluation. We will recheck the labs at this time. Asymptomatic patient and no complaints. MD complaint: abnormal lab Initial visit (ago): day(s) (Labs were drawn this morning here at this facility) Initial visit for: other (Patient is getting ready to see an customer service correspondence clerk and had blood work done headache time and hyperkalemia was found today; patient is asymptomatic and sent by the primary doctor for evaluation treatment) Returns today for: called because of abnormal lab/test (By primary doctor) Symptoms since prior visit: no new symptoms Context: called for abnormal lab result Associated symptoms: none Treatments prior to arrival: other (None) Related Data Home Medications ?Medication ?Instructions ?Recorded ?Confirmed ?Last Taken ?Type prochlorperazine maleate 10 mg 10 mg PO Q6H PRN nausea and 01/20/25 03/01/25 Unknown History tablet (Compazine) vomiting docusate sodium 100 mg capsule 100 mg PO BID 02/10/25 03/01/25 Unknown History Allergies Allergy/AdvReac Type Severity Reaction Status Date / Time Yeast Allergy Severe Anaphylactic Verified 05/09/25 14:16 Shock amoxicillin Allergy Intermediate unknown Verified 05/09/25 14:16 erythromycin base Allergy Intermediate unknown Verified 05/09/25 14:16 Sulfa (Sulfonamide Allergy Intermediate Unknown Verified 05/09/25 14:16 Antibiotics) Penicillins Allergy Unknown Anaphylaxis Verified 05/09/25 14:16 Review of Systems Review of Systems: All systems reviewed & are unremarkable except as noted in HPI and below Constitutional: Constitutional: Reports no additional constitutional complaints Eyes: Eyes: Reports no additional eye complaints ENT: Reports system reviewed and no additional complaints, except as documented Cardiovascular: Cardiovascular: Reports no additional cardiovascular complaints Respiratory: Respiratory: Reports no additional respiratory complaints Gastrointestinal: Gastrointestinal: Reports no additional gastrointestinal complaints Genitourinary: Genitourinary: Reports no additional female genitourinary complaints Musculoskeletal: Musculoskeletal: Reports no additional musculoskeletal complaints Integumentary/Breasts: Skin/Breast: Reports system reviewed and no additional complaints, except as docu Neurologic: Reports system reviewed and no additional complaints, except as documented Psychiatric: Psychiatric: Reports no additional psychiatric complaints Endocrine: Endocrine: Reports no additional endocrine complaints Hematologic/Lymphatic: Hematologic/Lymphatic: Reports no additional hematologic/lymphatic complaints Allergic/Immunologic: Allergic/Immunologic: Reports no additional allergic/immunologic complaints PMFSH Past Medical History Medical History Microalbuminuria Dizziness on standing Cervical osteoarthritis Abnormal vaginal bleeding in postmenopausal patient Cervical cancer Cellulitis of left foot Bacteremia Osteoarthritis of left shoulder Uncontrolled diabetes mellitus Diabetic infection of left foot Diabetic foot ulcer Migraines History of shingles History of chicken pox Surgical History Surgical History Foot abscess, left 04/18/24 Complex incision and drainage of diabetic left foot abscess. Dr. Dominique History of incision and drainage 04/18/24 Complex incision and drainage of diabetic left foot abscess. Dr. Dominique H/O oral surgery Social History Social History Smoking status: Never smoker Tobacco type: cigarettes Second hand tobacco smoke exposure: No Alcohol intake: never Alcohol use details: Allergy to beer Substance use: never Substance use type: does not use Do You Feel Safe in your Home?: Yes Lack of Transportation: No Lack of Food: Never True Current Housing: I Have Housing Concerned About Future Housing: No Difficulty Paying Gas/Electric Bills: No Difficulty Paying for Meds: No Currently Unemployed: No Education: Trade/Vocational Certificate Difficulty w/ Childcare or Family Care: No Living arrangements: alone Spiritual care concerns: No Exam Const: General: healthy appearing Nutritional Appearance: well nourished Orientation/consciousness: patient oriented x3 HENMT: Head: normal to inspection Ears: external ears normal Face/Nose/Sinus: Normal external nose present Eyes: Conjunctivae: conjunctivae normal Pupils: Equal, round and reactive pupils present EOM: EOMs intact bilaterally Neck: Neck: normal visual inspection Chest: Chest palpation & inspection: normal inspection of the chest and normal inspection of the chest Resp: Effort & Inspection: normal respiratory effort, not labored and no retractions Auscultation: clear to auscultation bilaterally, no crackles and no rales Cardio: Rate: regular rate Rhythm: regular rhythm Heart sounds: no murmurs GI: Inspection: non-distended GI Palp: Yes Soft to palpation and No Tenderness to palpation present (GI) Auscultation: normal bowel sounds : General: Yes bladder normal to palpation Back/Spine/Pelvis: Back: no CVA tenderness Skin: General skin exam: normal color Rashes: no rashes Wounds: no wounds Neuro: General: patient oriented x3, moves all extremities and no meningeal signs Extrem: General: normal to inspection, no clubbing, cyanosis or edema and no pedal edema Psych: Mental Status: mental status grossly normal Affect: normal affect Attitude: cooperative Course Vital Signs Vital signs: Vital Signs Temperature 36.6 C 05/09/25 13:51 Pulse Rate 78 05/09/25 13:51 Respiratory Rate 18 05/09/25 13:51 Blood Pressure 102/63 05/09/25 13:51 Pulse Oximetry 100 05/09/25 13:51 Oxygen Delivery Room Air 05/09/25 13:51 Temperature 36.6 C 05/09/25 13:51 Pulse Rate 75 05/09/25 13:55 Respiratory Rate 18 05/09/25 13:51 Blood Pressure 102/63 05/09/25 13:51 Pulse Oximetry 100 05/09/25 13:51 Oxygen Delivery Room Air 05/09/25 13:51 MDM - Recheck/Abnormal Lab/Rx MDM Narrative Medical decision making narrative: Patient is a 64-year-old female with abnormal potassium level being high today with the primary doctor. Recheck labs at this time. Lab Data Attestation: I reviewed the patient's lab results. 05/09/25 14:26 05/09/25 14:26 Labs: Lab Results 05/09/25 05/09/25 Range/Units 14:26 15:07 WBC 6.8 (4.8-10.8) K/mm3 RBC 3.68 L (4.20-5.40) M/mm3 Hgb 10.2 L (12.0-15.0) g/dL Hct 32.1 L (35.0-49.0) % MCV 87.2 (78.0-102.0) fL MCH 27.7 (27.0-31.0) pg MCHC 31.8 L (32-36) g/dL RDW 13.3 (11.6-14.4) % Plt Count 116 L (150-420) K/mm3 MPV 9.0 L (9.2-11.8) fl Immature Gran % (Auto) 1.0 H (0.0-0.0) % Neut % (Auto) 75.6 H (50.0-70.0) % Lymph % (Auto) 9.5 L (18.0-42.0) % Evans % (Auto) 8.8 (2.0-11.0) % Eos % (Auto) 4.1 (1.0-6.0) % Baso % (Auto) 1.0 (0.0-1.0) % Lymph # (Auto) 0.65 L (1.10-4.50) K/mm3 Evans # (Auto) 0.60 (0.10-0.90) K/mm3 Eos # (Auto) 0.28 (0.02-0.50) K/mm3 Baso # (Auto) 0.07 (0.00-0.10) K/mm3 Abs Immat Gran (auto) 0.07 H (0.00-0.00) K/mm3 Absolute Neuts (auto) 5.17 (1.70-7.20) K/mm3 Absolute Nucleated RBC 0.00 (0.00-0.00) K/mm3 Nucleated RBC % 0.0 (0-0.0) % Sodium 137 (137-145) mmol/L Potassium 4.6 (3.4-5.0) mmol/L Chloride 99 (98-107) mmol/L Carbon Dioxide 30 (22-30) mmol/L Anion Gap 8 (4-12) mmol/L BUN 41 H (7-17) mg/dL Creatinine 1.50 H (0.7-1.0) mg/dL Estim Creat Clear Calc 34 ml/min Estimated GFR 35 L (59 - ) Glucose 184 H (65-110) mg/dL Calculated Osmolality 299 H (285-295) mOsm/kg Calcium 9.3 (8.4-10.2) mg/dL Magnesium 1.9 (1.6-2.3) mg/dL Total Bilirubin 0.1 L (0.2-1.3) mg/dL AST 17 (14-36) U/L ALT 13 (6-35) U/L Alkaline Phosphatase 43 (38-126) U/L Total Protein 6.3 (6.3-8.2) g/dL Albumin 4.0 (3.5-5.1) g/dL Urine Color Yellow (Yellow) Urine Appearance Clear (Clear) Urine pH 6.0 (5.0-8.0) Ur Specific [place] >= 1.030 H (1.010-1.020) Urine Protein 3+ H (Negative) Urine Glucose (UA) Negative (Negative) Urine Ketones Negative (Negative) Ur Blood (Man) 3+ H (Negative) Urine Nitrate Negative (Negative) Urine Bilirubin 1+ H (Negative) Urine Urobilinogen 0.2 (0.2-1.0) mg/dL Leukocyte Esterase Rfl Negative (Negative) BRANDEN/UL Urine RBC 0-2 (0-2) /hpf Urine WBC 31-50 H (0-3) /hpf Ur Squamous Epith Cells Many H (Few) /hpf Ur Transition Epith Cell Few H (None) /hpf Discharge Plan Discharge Clinical Impression: Abnormal laboratory test result Chronic kidney disease Qualifiers: Chronic kidney disease stage: unspecified stage Qualified Code(s): N18.9 - Chronic kidney disease, unspecified UTI (urinary tract infection) Qualifiers: Urinary tract infection type: acute cystitis Hematuria presence: with hematuria Qualified Code(s): N30.01 - Acute cystitis with hematuria Patient Disposition: Home Condition: Stable Instructions: Antibiotic Form, Urinary Tract Infection in Women (DC), Chronic Kidney Disease (ED) Patient Language: Polish Prescriptions: New ciprofloxacin HCl 500 mg tablet 500 mg PO BID 7 Days Qty: 14 0RF Rx Instructions: administer within 120 minutes prior to surgical incision No Action prochlorperazine maleate [Compazine] 10 mg tablet 10 mg PO Q6H PRN (Reason: nausea and vomiting) docusate sodium 100 mg capsule 100 mg PO BID Gvoke HypoPen 2-Pack 1 mg/0.2 mL auto-injector 1 mg subcut ONCE Qty: 0.4 0RF Rx Instructions: as a single dose; may repeat once after 15 minutes if no response atorvastatin [Lipitor] 10 mg tablet 5 mg PO .twice weekly Qty: 45 0RF lisinopril 30 mg tablet 30 mg PO DAILY Qty: 7 0RF lisinopril 20 mg tablet 40 mg PO DAILY Qty: 180 3RF Rx Instructions: STEP II - after 1 week on Lisinopril 30 mg (1 tab) ondansetron 8 mg tablet,disintegrating 8 mg PO Q8H PRN (Reason: nausea and vomiting) Qty: 30 0RF pantoprazole 40 mg tablet,delayed release (DR/EC) 40 mg PO QHS Qty: 90 1RF (DME) blood-glucose meter Kit See Rx Instructions .Route Qty: 1 0RF Rx Instructions: As directed metformin 500 mg tablet extended release 24 hr 500 mg PO BID Qty: 90 5RF (DME) lancets [On-The-Go Lancets] 30 gauge misc See Rx Instructions .Route Qty: 100 1RF Rx Instructions: ACHS (DME) FreeStyle Kim 3 [place] Misc See Rx Instructions .Route Qty: 1 0RF Rx Instructions: As directed (DME) lancets [Acti-Estuardo Lancets] 28 gauge misc See Rx Instructions .Route Qty: 100 3RF Rx Instructions: BID insulin lispro 100 unit/mL insulin pen See Rx Instructions subcut TID MDD 30 units Qty: 15 3RF Rx Instructions: SS BS 150-200: 2 units; BS 201-250: 4 units; BS 251-300: 6 units; 301-350: 8 units; 351-400: 10 units hydrochlorothiazide 12.5 mg tablet 12.5 mg PO DAILY 90 Days Qty: 90 0RF insulin glargine [Basaglar KwikPen U-100 Insulin] 100 unit/mL (3 mL) insulin pen 15 unit subcut QPM Qty: 15 4RF magnesium oxide 400 mg (241.3 mg magnesium) tablet See Rx Instructions .ROUTE .COMPLEX Qty: 120 1RF Dose Instruction: TAKE 1 TABLET BY MOUTH TWICE A DAY Rx Instructions: TAKE 1 TABLET BY MOUTH TWICE A DAY (DME) OneTouch Verio test strips Strip See Rx Instructions .ROUTE .COMPLEX Qty: 50 3RF Dose Instruction: USE TO TEST TWICE A DAY Rx Instructions: USE TO TEST TWICE A DAY (DME) FreeStyle Kim 3 Plus Sensor Device See Rx Instructions .Route Qty: 2 3RF Rx Instructions: As directed; CGM change every 15 days (DME) pen needle, diabetic [Kellen 2nd Gen Pen Needle] 32 gauge x 5/32 needle See Rx Instructions .Route Qty: 100 0RF Rx Instructions: QID Follow-up/Referrals: Diann Crain NP [Primary Care Provider, [facility]] Time of Disposition: 15:45
[2025-05-09 14:30] VITALS: BP 97/57; PULSE 74; RESP 18; O2SAT 99
[2025-05-09 14:33] LABS: Hematocrit 32.1 % (35.0-49.0); Hemoglobin 10.2 g/dL (12.0-15.0); Immature Granulocyte Percent A 1.0 % (0.0-0.0); Lymphocytes Absolute Auto 0.65 K/mm3 (1.10-4.50); Mean Corpuscular HGB Conc 31.8 g/dL (32-36); Mean Corpuscular Hemoglobin 27.7 pg (27.0-31.0); Mean Corpuscular Volume 87.2 fL (78.0-102.0); Nucleated Red Blood Cells Absolute Auto 0.00 K/mm3 (0.00-0.00); Nucleated Red Blood Cells Perc 0.0 % (0-0.0); Platelet Count Result 116 K/mm3 (150-420); Red Blood Count 3.68 M/mm3 (4.20-5.40); White Blood Count 6.8 K/mm3 (4.8-10.8)
[2025-05-09 14:50] LABS: Alanine Aminotransferase 13 U/L (6-35); Albumin Level 4.0 g/dL (3.5-5.1); Alkaline Phosphatase 43 U/L (38-126); Anion Gap 8 mmol/L (4-12); Aspartate Amino Transferase 17 U/L (14-36); Bilirubin,Total 0.1 mg/dL (0.2-1.3); Blood Urea Nitrogen 41 mg/dL (7-17); Calcium 9.3 mg/dL (8.4-10.2); Carbon Dioxide 30 mmol/L (22-30); Chloride 99 mmol/L (98-107); Estimated CRCL calculation 34 ml/min; Estimated Glomerular Filt Rate 35; Glucose 184 mg/dL (65-110); Magnesium 1.9 mg/dL (1.6-2.3); Osmolality Calculated 299 mOsm/kg (285-295); Potassium 4.6 mmol/L (3.4-5.0); Sodium 137 mmol/L (137-145); Total Protein 6.3 g/dL (6.3-8.2)
[2025-05-09 14:55] VITALS: PULSE 75
[2025-05-09 15:12] LABS: Add Urine Microscopic? YES; Appearance Urine Clear (Clear); Glucose Urine UA Negative (Negative); Leukocyte Esterase Ur Negative LEU/UL (Negative); Nitrate Urine Negative (Negative); Specific Grav Ur >= 1.030 (1.010-1.020)
[2025-05-09 15:55] VITALS: BP 124/61; PULSE 73; RESP 18; O2SAT 99
--- OUTSIDE RECORDS SUMMARY | 2025-05-09 15:57 | XMS_ITS | Clinical Summary ---
Author Organization [facility] Address [address] [place] [address] Care Team Providers Care Yard Assistant Name Role Phone Diann Crain JIG AND FIXTURE MAKER-DRESS FITTER Primary Care Provid er Source Comments [facility],non-owned Affiliates and Associated Physician Practices is amultiple site organization consisting of ambulatory clinics and hospital sitesin [place], [place], [place] and [place]. This disclosure is being madepursuant to the Care Everywhere program and may not contain all information available regarding this patient. 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 (HCC) (Primary Dx) 04/05/2025 1:00 PM CDT - 05/07/2025 11:59 PM CONTRACTING ENGINEER Hospital Encounter [facility] Cancer Care - Radiation Oncology [address] [place] [address] Montana Lakhani MD Discharge Disposition: Home or Self Care 04/05/2025 1:00 PM CDT - 05/07/2025 11:59 PM CONTRACTING ENGINEER Hospital Encounter [facility] Cancer [facility] - Radiation Oncology [address] [place] [address] [place] Lakhani MD Discharge Disposition: Home or Self Care 04/05/2025 Travel 04/04/2025 Travel 02/07/2025 Telephone [facility] - Rad/Onc [address] [place] [phone] Argentina Rosenthal RN Vomiting 02/06/2025 Telephone [facility] - Rad/Onc [address] [place] [phone] Argentina Rosenthal RN Vomiting from Last [...] on file Legal Sex Female 1:25 PM CONTRACTING ENGINEER Gender Identity Not on file Sexual [...] st Contact Info) Description 07/18/2025 1:00 PM CONTRACTING ENGINEER Office Visit [facility] - Rad/Onc [address] [place] [address] Montana Lakhani MD [address] [place] [address] Health Maintenance Due Date Last [...] Pelvis Outside (04/01/2025 2:41 PM CDT) Narrative [facility] - 04/19/2025 2:42 PM CONTRACTING ENGINEER This is a study from an outside facility that has been uploaded into PACS. us Provider Dig[employer] IMAGING Final Result Performing Organization Address City/State/RUST Co de Phone Number [facility] [address] [place] [address] from Last 3 Months Insurance LAUREN Care Teams Yard Assistant Relationship Specialty Start Date End Date Diann Crain, JIG AND FIXTURE MAKER-DRESS FITTER [address] [place] [address] PCP - General Nurse Practitioner Family 09/15/24
--- OUTSIDE RECORDS SUMMARY | 2025-05-09 15:57 | XMS_ITS | Patient Health Record ---
Author Organization [facility] Address [address] [place], [place] [address] Care Team Providers Care Client Support Administrator Name Role Phone JESUS MANUEL AHMADI Unavailable [phone] Diann Crain Unavailable Unavailable JESUS MANUEL MCDONOUGH Unavailable [phone] AZUCENA MYLES Unavailable [phone] Allergies Allergen (clinical drug ingredient) Drug/Non Drug [...] EVERY EVENING Subcutaneous; Duration: 90 Days Active metFORMIN HCl ER 500 MG Tablet Extended Release 24 Hour 500 MG ORALLY TWICE A DAY Oral; Duration: 45 Days Active Docusate Sodium 100 MG Capsule TAKE 1 CAPSULE BY MOUTH TWICE A DAY Oral; Duration: 30 Days Active Magnesium 300 MG Capsule 1 capsule with a meal Orally Once a day Active Pantoprazole Sodium 20 MG Tablet Delayed Release 1 tablet 1/2 to 1 hour before morning meal Orally Once a day Active Metoclopramide HCl 5 MG/ML Solution 1 mL before meals Injection Twice a day Active Ibuprofen 600 MG Tablet TAKE 1 TABLET BY MOUTH EVERY 6 HOURS NEEDED FOR PAIN Oral; Duration: 10 Days Active OneTouch Verio - Strip TWICE A DAY In [facility]; Duration: 25 Days Active FreeStyle Kim 3 Sensor - Miscellaneous ; Duration: 14 Days Active Metformin ER & Diagnostic Test Active Social History Tobacco Use: Social History Observation Description Date Details (start date - stop date) Never Smoker NA - NA Sex Assigned At : Social History Observation Description Sex Assigned At Female Social History Tobacco Use: Social Info Question Answer Notes Tobacco Control (Standard) Tobacco use: Nonsmoker Vital Signs Height-cm 172.72 cm 05/04/2025 Weight-kg 72.58 kg 05/04/2025 Height 68 in 05/04/2025 Weight 160 lbs 05/04/2025 BMI 24.33 kg/m2 05/04/2025 Encounters Encounter Location Date Provider Diagnosis [address] [id number] 08/04/2024 JESUS MANUEL AHMADI Tinea unguium B35.1 ; Pain in right toe(s) M79.674 ; Pain in left toe(s) M79.675 ; Atherosclerosis of sun'aq arteries of extremities with intermittent claudication, bilateral legs I70.213 and Type 2 diabetes mellitus with other circulatory complications E11.[address] [id number] 02/23/2025 AZUCENA MYLES Atherosclerosis of sun'aq arteries of extremities with intermittent claudication, bilateral legs I70.213 ; Onychomycosis B35.1 ; Pain in right toe(s) M79.674 and Pain in left toe(s) M79.[address] [id number] 05/04/2025 AZUCENA MYLES Atherosclerosis of sun'aq arteries of extremities with intermittent claudication, bilateral legs I70.213 ; Onychomycosis B35.1 ; Pain in right toe(s) M79.674 and Pain in left toe(s) M79.675 [facility] [address] [place], [place] [id number] 10/06/2024 JESUS MANUEL MCDONOUGH Atherosclerosis of sun'aq arteries of extremities with intermittent claudication, bilateral [...] and necrotic tissue removed 02/23/2025 Atherosclerosis of sun'aq arteries of extremities with intermittent claudication, bilateral [...] subungual debris and necrotic tissue removed 05/04/2025 Atherosclerosis of sun'aq arteries of extremities with intermittent claudication, bilateral legs (ICD-10 - I70.213) Patient educated on risks and aggravating factors of PVD, including conservative treatment options such as a diet and exercise regimen to aid in slowing progression of vascular disease. Check and protect LE bilateral daily. Call if any changes or concerns. 10/06/2024 Atherosclerosis of sun'aq arteries of extremities with intermittent claudication, bilateral legs (ICD-10 - I70.213) 05/04/2025 Onychomycosis (ICD-10 - B35.1) Nails 1-5 Bilateral were debrided extensively with nail nippers and emery board, reducing length and girth to pink healthy tissue with any subungual debris and necrotic tissue removed 10/06/2024 Pain in right toe(s) (ICD-10 - M79.674) 05/04/2025 Pain in right toe(s) (ICD-10 - M79.674) 02/23/2025 Pain in right toe(s) (ICD-10 - M79.674) 08/04/2024 Pain in right toe(s) (ICD-10 - M79.674) 08/04/2024 Pain in left toe(s) (ICD-10 - M79.675) 02/23/2025 Pain in left toe(s) (ICD-10 - M79.675) 05/04/2025 Pain in left toe(s) (ICD-10 - M79.675) 10/06/2024 Pain in left toe(s) (ICD-10 - M79.675) 08/04/2024 Atherosclerosis of sun'aq arteries of extremities with intermittent claudication, bilateral [...] Treatment Next Appt Details Provider Name:AZUCENA ANDRADE, 07/06/2025 11:10:00 AM, [address] [place] [address], [phone], Insurance Providers Payer Name Payer Address Payer Phone Subscriber Number Group Number Insured Name Patient Relationship to Insured Coverage Start Date Coverage End Date [facility] ([facility]) ATTN CLAIMS [address] [place] [address] [id number] [place] Self - patient is the insured Medical (General) History Medical History History ICD Code neuropathy Arthritis Diabetic varicose veins
--- OUTSIDE RECORDS SUMMARY | 2025-05-09 15:58 | XMS_ITS ---
Author Organization [facility] Address [address] [place] [address] Phone Care Team Providers Care Fabric Worker Supervisor Name Role Phone Diann Crain DIRECTOR TELEVISION, ELECTRIC ARC FURNACE OPERATOR Primary Care Provi scot Antonia Rodriguez MD Unavailable [phone] Malvin Estrada MD Unavailable [phone] Taqueria Gresham MD Unavailable [phone] Montana Lakhani MD Unavailable [phone] Waqar Frankel MD Unavailable Active Problems Problem [...]
--- OUTSIDE RECORDS SUMMARY | 2025-05-09 15:58 | XMS_ITS | Clinical Summary ---
Author Organization [facility] Address [address] [place] [address] Care Team Providers Care Electrical Designer Drafter Name Role Phone Chu Lorenzo MD Primary [...] Sex Assigned at Female 04/29/2018 9:29 PM FOREST FIRE PREVENTION MANAGER Legal Sex Female 5:33 PM FOREST FIRE PREVENTION MANAGER Gender Identity Female 04/29/2018 9:29 PM FOREST FIRE PREVENTION MANAGER Sexual Orientation Straight 04/29/2018 9: 29 PM FOREST FIRE PREVENTION MANAGER Last Filed Vital Signs Vital Sign Reading Time Taken Comments Blood Pressure 144/79 05/04/2018 1:50 PM FOREST FIRE PREVENTION MANAGER Pulse 69 05/04/2018 1:50 PM FOREST FIRE PREVENTION MANAGER Temperature 36.6 C (97.9 F) 05/04/2018 1:50 PM FOREST FIRE PREVENTION MANAGER Respiratory Rate 18 05/04/2018 1:50 PM FOREST FIRE PREVENTION MANAGER Oxygen Saturation 100% 05/04/2018 1:50 PM FOREST FIRE PREVENTION MANAGER Inhaled Oxygen Concentration - - Weight 86.8 kg (191 lb 5.8 oz) 05/04/2018 4:43 A M FOREST FIRE PREVENTION MANAGER Height 172.7 cm (5' 8) 04/29/2018 9:12 PM FOREST FIRE PREVENTION MANAGER Body Mass Index 29.1 04/29/2018 9:12 PM FOREST FIRE PREVENTION MANAGER Plan of Treatment Health Maintenance Due Date [...] of 2) 2010 COVID-19 Vaccine ( - 2024-2 6 season) 2025 Influenza Adult (#1) 2025 05/01/2018 RSV Immunization or 60+ Years (1 - 1-dose 75+ series) 10/04/2035 Hepatitis A Vaccines Aged Out No long er eligible based on patient's age to complete this topic Meningococcal B Vaccine Aged Out No l [...] 11:48 PM 05/04/2018 7:30 PM Care Teams Electrical Designer Drafter Relationship Specialty Start Date End Date Chu Lorenzo MD PCP - General SURGERY 04/24/18
--- OUTSIDE RECORDS SUMMARY | 2025-05-09 15:58 | XMS_ITS ---
Author Organization [facility] Address [address] [facility] [place] [address] Care Team Providers Care Inspector Aide Name Role Phone Diann Crain PEST CONTROL APPLICATOR-PURCHASING AND CLAIMS SUPERVISOR Primary Care Provid er Active Problems Problem Noted Date Diagnosed Date Diabetes mellitus, type 2 01/05/2025 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 x 12/27/2024 Current Treatment and Therapy Plans No current plan information found. Past Treatment and Therapy Plans No past plan information found. Radiation Treatments * Course [id number] 12/22/2024 - 01/10/2025 Treatment Period Energy Fraction Dose Fractions Total Dose Plans Planned Cervix 3000 12/22/2024 - 01/10/2025 5 / 5 3,000 cGy Reference Points Delivered
--- OUTSIDE RECORDS SUMMARY | 2025-05-09 15:58 | XMS_ITS | Clinical Summary ---
Author Organization [facility] Viji Lam Address [address] [place] [address] Care Team Providers Care Body Builder Apprentice Name Role Phone Unavailable Primary Care Provider [...] Data STL ABSTRACTION Provider, Abstract 03/29/2025 Refill [facility] Oncology and Hematology - [address] [place] [address] Madhu Duvall MD 03/07/2025 Orders Only [facility] Oncology and Hematology [address] [place] [address] Madhu Duvall MD 03/06/2025 4:30 PM CDT Telephone Check Up [facility] Oncology and Hematology [facility] [address] [place] [address] Madhu Duvall MD Chronic anemia (Primary Dx) 03/06/2025 Orders Only [facility] Oncology and Hematology [address] [place] [address] Madhu Duvall MD 03/01/2025 Orders Only [facility] Oncology and Hematology [address] [place] [address] Madhu Duvall MD 03/01/2025 External Device Data STL ABSTRACTION Provider, Abstract 02/28/2025 External Device Data STL ABSTRACTION Provider, Abstract 02/28/2025 External Device Data STL ABSTRACTION Provider, Abstract 02/28/2025 Orders Only [facility] Oncology and Hematology [address] [place] [address] Madhu Duvall MD 02/27/2025 10:30 AM CDT Office Visit [facility] Oncology and Hematology [facility] [address] [place] [address] Madhu Duvall MD Chronic anemia (Primary Dx) [...] st Contact Info) Description 06/19/2025 2:15 PM MANAGER FIELD SERVICE Office Visit [facility] Oncology and Hematology - [address] [facility] [address] [place] [address] Madhu Duvall MD [address] [facility] [address] [place] [address] Health Maintenance Due Date Last [...] Resu lt from Last 3 Months Insurance [facility]
--- OUTSIDE RECORDS SUMMARY | 2025-05-09 15:58 | XMS_ITS | Clinical Summary ---
Author Organization [facility] Address [address] [place] [address] Phone Care Team Providers Care Works Manager Name Role Phone DavidlynnDiann nieves INFRASTRUCTURE SOFTWARE ENGINEER, LABELING ASSOCIATE Primary Care Provi scot Antonia Rodriguez MD Unavailable [phone] Malvin Estrada MD Unavailable [phone] Taqueria Gresham MD Unavailable [phone] Montana Lakhani MD Unavailable Waqar Frankel MD [...] Type Department Care Team Description 04/11/2025 [facility] [address] [place] [address] Taqueria Gresham MD 04/07/2025 [facility] [address] [place] [address] Taqueria Gresham MD Follow-up (Please see dictated note.) 04/06/2025 10:30 AM CDT [facility] [address] [place] [address] Taqueria Gresham MD Right leg weakness (Primary Dx); Cervical cancer, FIGO stage IB; History of therapeutic radiation; History of cancer chemotherapy Discharge Disposition: Discharged to home or Selfcare 04/06/2025 Travel 04/04/2025 Travel 04/01/2025 6:59 AM CDT - 04/01/2025 11:59 PM CDT [facility] [address] [place] [address] Barry Martin MD Discharge Disposition: Discharged to [...] st Contact Info) Description 05/18/2025 9:15 AM WAREHOUSE RECORD CLERK Office Visit [facility] Medical [facility] - Neurology [facility] [address] [place] [address] Waqar Frankel MD [address] [place] [address] 07/11/2025 10:00 AM WAREHOUSE RECORD CLERK [facility] [address] [place] [address] Taqueria Gresham MD [address] [place] [address] Discharge Disposition: Discharged to home or Selfcare [...] LAB - MISCELLANEOUS 04/21/2025 1 2:00 AM WAREHOUSE RECORD CLERK COMPLETE BLOOD COUNT (CBC) WITH DIFF 04/21/2025 12:00 AM WAREHOUSE RECORD CLERK CREATINE KINASE (CK) TOTAL 04/21/2025 12:00 AM WAREHOUSE RECORD CLERK CMP (COMPREHENSIVE METABOLIC PANEL) 04/21/2025 12:00 AM WAREHOUSE RECORD CLERK CMP (COMPREHENSIVE METABOLIC PANEL) Routine 04/21/2025 12:00 AM WAREHOUSE RECORD CLERK COMPLETE BLOOD COUNT (CBC) WITH DIFF Routine 04/21/2025 12:00 AM WAREHOUSE RECORD CLERK CT ABDOMEN PELVIS W/ CONTRAST Routine 04/01/2025 7:25 AM CDT Cervical cancer, FIGO stage IIB HM COLONOSCOPY 10/12/2024 12:00 AM CDT from Last 3 Months or Most Recently Relevant to Health Maintenance Results * LAB - MISCELLANEOUS (04/21/2025 12:00 AM WAREHOUSE RECORD CLERK) 04/21/2025 Taqueria Gresham MD CHEMISTRY ORDERABLES Fi nal Result Performing Organization Address [facility] de Phone Number SCAN * CREATINE KINASE (CK) TOTAL (04/21/2025 12:00 AM WAREHOUSE RECORD CLERK) 04/21/2025 Taqueria Gresham MD CHEMISTRY ORDERABLES Fi nal Result Performing Organization Address [facility] de Phone Number SCAN * CMP (COMPREHENSIVE METABOLIC PANEL) (04/21/2025 12:00 AM WAREHOUSE RECORD CLERK) Only the most recent of2 resultswithin the time period is included. 04/21/2025 Taqueria Gresham MD CHEMISTRY ORDERABLES Fi nal Result Performing Organization Address [facility] de Phone Number SCAN * COMPLETE BLOOD COUNT (CBC) WITH DIFF (04/21/2025 12:00 AM WAREHOUSE RECORD CLERK) Only the most recent of2 resultswithin the time period is included. 04/21/2025 Taqueria Gresham MD HEMATOLOGY ORDERABLES F inal Result Performing Organization Address [facility] de Phone Number SCAN * CT ABDOMEN [...] CDT DICTATING PHYSICIAN: Sean Sharma M.D. - [facility] Examination: CT abdomen and pelvis [...] 04/01/2025 DICTATING PHYSICIAN: Sean [facility] Examination: CT abdomen and pelvis with [...] Most Recently Relevant to Health Maintenance Insurance [facility] Care Teams Works Manager Relationship Specialty Start Date End Date Diann Crain, INFRASTRUCTURE SOFTWARE ENGINEER, LABELING ASSOCIATE [address] [place] [address] PCP - General Advanced Practice Nurse 10/10/24 Antonia Rodriguez MD [address] [phone] Consulting Physician Gynecologic Oncology 10/11/24 Malvin Estrada MD [address] [place] [address] Consulting Physician Medical Oncology 10/11/24 Taqueria Gresham MD [address] [place] [address] Consulting Physician Radiation Oncology 10/11/24 Montana Lakhani MD [address] [place] [address] Consulting Physician Radiation Oncology 10/12/24 Waqar Frankel MD [address] [place] [phone] Consulting Physician Neurology 04/07/25
--- OUTSIDE RECORDS SUMMARY | 2025-05-09 16:37 | XMS_ITS | Clinical Summary ---
Author Organization [facility] Address [address] [place] [address] Care Team Providers Care Medical Secretary Teacher Name Role Phone Chu Lorenzo MD Primary [...] Sex Assigned at Female 04/29/2018 9:29 PM PHARMACIST IN CHARGE OWNER Legal Sex Female 5:33 PM PHARMACIST IN CHARGE OWNER Gender Identity Female 04/29/2018 9:29 PM PHARMACIST IN CHARGE OWNER Sexual Orientation Straight 04/29/2018 9: 29 PM PHARMACIST IN CHARGE OWNER Last Filed Vital Signs Vital Sign Reading Time Taken Comments Blood Pressure 144/79 05/04/2018 1:50 PM PHARMACIST IN CHARGE OWNER Pulse 69 05/04/2018 1:50 PM PHARMACIST IN CHARGE OWNER Temperature 36.6 C (97.9 F) 05/04/2018 1:50 PM PHARMACIST IN CHARGE OWNER Respiratory Rate 18 05/04/2018 1:50 PM PHARMACIST IN CHARGE OWNER Oxygen Saturation 100% 05/04/2018 1:50 PM PHARMACIST IN CHARGE OWNER Inhaled Oxygen Concentration - - Weight 86.8 kg (191 lb 5.8 oz) 05/04/2018 4:43 A M PHARMACIST IN CHARGE OWNER Height 172.7 cm (5' 8) 04/29/2018 9:12 PM PHARMACIST IN CHARGE OWNER Body Mass Index 29.1 04/29/2018 9:12 PM PHARMACIST IN CHARGE OWNER Plan of Treatment Health Maintenance Due Date [...] 11:48 PM 05/04/2018 7:30 PM Care Teams Medical Secretary Teacher Relationship Specialty Start Date End Date Chu Lorenzo MD PCP - General SURGERY 04/24/18
--- OUTSIDE RECORDS SUMMARY | 2025-05-09 16:37 | XMS_ITS ---
Author Organization [facility] Address [address] [place] [address] Care Team Providers Care Acrobatic Dancer Name Role Phone Diann Crain COMBUSTION ANALYST-ARMAMENT REPAIRER Primary Care Provid er Active Problems Problem Noted Date Diagnosed Date Diabetes mellitus, type 2 01/05/2025 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 x 12/27/2024 Current Treatment and Therapy Plans No current plan information found. Past Treatment and Therapy Plans No past plan information found. Radiation Treatments * Course [id number] 12/22/2024 - 01/10/2025 Treatment Period Energy Fraction Dose Fractions Total Dose Plans Planned Cervix 3000 12/22/2024 - 01/10/2025 5 / 5 3,000 cGy Reference Points Delivered
--- OUTSIDE RECORDS SUMMARY | 2025-05-09 16:37 | XMS_ITS | Clinical Summary ---
Author Organization [facility] Address [address] [place] [address] Phone Care Team Providers Care Logistics Team Lead Name Role Phone DavidlynnDiann nieves CHARGE OUT CLERK, WELDER EXPERIMENTAL Primary Care Provi scot Antonia Rodriguez MD Unavailable [phone] Malvin Estrada MD Unavailable [phone] Taqueria Gresham MD Unavailable [phone] Montana Lakhani MD Unavailable Waqar Frankel MD [...] Type Department Care Team Description 04/11[facility] [address] [place] [address] Taqueria Gresham MD 04/07/2025 [facility] [address] [place] [address] Taqueria Gresham MD Follow-up (Please see dictated note.) 04/06/2025 10:30 AM CDT [facility] [address] [place] [address] Taqueria Gresham MD Right leg weakness (Primary Dx); Cervical cancer, FIGO stage IB; History of therapeutic radiation; History of cancer chemotherapy Discharge Disposition: Discharged to home or Selfcare 04/06/2025 Travel 04/04/2025 Travel 04/01/2025 6:59 AM CDT - 04/01/2025 11:59 PM CDT [facility] [address] [place] [address] Barry Martin MD Discharge Disposition: Discharged to [...] st Contact Info) Description 05/18/2025 9:15 AM SUPERVISOR AIRPLANE FLIGHT ATTENDANT Office Visit [facility] - Neurology [facility] [address] [place] [address] Waqar Frankel MD [address] [place] [address] 07/11/2025 10:00 AM SUPERVISOR AIRPLANE FLIGHT ATTENDANT [facility] [address] [place] [address] Taqueria Gresham MD [address] [place] [address] Discharge Disposition: Discharged to home or Selfcare [...] LAB - MISCELLANEOUS 04/21/2025 1 2:00 AM SUPERVISOR AIRPLANE FLIGHT ATTENDANT COMPLETE BLOOD COUNT (CBC) WITH DIFF 04/21/2025 12:00 AM SUPERVISOR AIRPLANE FLIGHT ATTENDANT CREATINE KINASE (CK) TOTAL 04/21/2025 12:00 AM SUPERVISOR AIRPLANE FLIGHT ATTENDANT CMP (COMPREHENSIVE METABOLIC PANEL) 04/21/2025 12:00 AM SUPERVISOR AIRPLANE FLIGHT ATTENDANT CMP (COMPREHENSIVE METABOLIC PANEL) Routine 04/21/2025 12:00 AM SUPERVISOR AIRPLANE FLIGHT ATTENDANT COMPLETE BLOOD COUNT (CBC) WITH DIFF Routine 04/21/2025 12:00 AM SUPERVISOR AIRPLANE FLIGHT ATTENDANT CT ABDOMEN PELVIS W/ CONTRAST Routine 04/01/2025 7:25 AM CDT Cervical cancer, FIGO stage IIB [facility] COLONOSCOPY 10/12/2024 12:00 AM CDT from Last 3 Months or Most Recently Relevant to Health Maintenance Results * LAB - MISCELLANEOUS (04/21/2025 12:00 AM SUPERVISOR AIRPLANE FLIGHT ATTENDANT) 04/21/2025 Taqueria Gresham MD CHEMISTRY ORDERABLES Fi nal Result Performing Organization Address [facility] de Phone Number SCAN * CREATINE KINASE (CK) TOTAL (04/21/2025 12:00 AM SUPERVISOR AIRPLANE FLIGHT ATTENDANT) 04/21/2025 Taqueria Gresham MD CHEMISTRY ORDERABLES Fi nal Result Performing Organization Address [facility] de Phone Number SCAN * CMP (COMPREHENSIVE METABOLIC PANEL) (04/21/2025 12:00 AM SUPERVISOR AIRPLANE FLIGHT ATTENDANT) Only the most recent of2 resultswithin the time period is included. 04/21/2025 Taqueria Gresham MD CHEMISTRY ORDERABLES Fi nal Result Performing Organization Address [facility] de Phone Number SCAN * COMPLETE BLOOD COUNT (CBC) WITH DIFF (04/21/2025 12:00 AM SUPERVISOR AIRPLANE FLIGHT ATTENDANT) Only the most recent of2 resultswithin the time period is included. 04/21/2025 Taqueria Gresham MD HEMATOLOGY ORDERABLES F inal Result Performing Organization Address [facility] de Phone Number SCAN * CT [...] CDT DICTATING PHYSICIAN: Sean Sharma M.D. - [facility] Examination: CT abdomen and pelvis [...] 04/01/2025 DICTATING PHYSICIAN: Sean Sharma M.D. - [facility] Examination: CT abdomen and pelvis with [...] Most Recently Relevant to Health Maintenance Insurance [facility] Care Teams Logistics Team Lead Relationship Specialty Start Date End Date Diann Crain, CHARGE OUT CLERK, WELDER EXPERIMENTAL [address] [place] [address] PCP - General Advanced Practice Nurse 10/10/24 Antonia Rodriguez MD [address] [id number] Consulting Physician Gynecologic Oncology 10/11/24 Malvin Estrada MD [address] [place] [address] Consulting Physician Medical Oncology 10/11/24 Taqueria Gresham MD [address] [place] [address] Consulting Physician Radiation Oncology 10/11/24 Montana Lakhani MD [address] [place] [address] Consulting Physician Radiation Oncology 10/12/24 Waqar Frankel MD [address] [place] [id number] Consulting Physician Neurology 04/07/25
--- OUTSIDE RECORDS SUMMARY | 2025-05-09 16:37 | XMS_ITS | Clinical Summary ---
Author Organization [facility] Viji Lam Address [address] [address] Care Team Providers Care Atmospheric Chemist Name Role Phone Unavailable Primary Care Provider [...] Data STL ABSTRACTION Provider, Abstract 03/29/2025 Refill [facility] Oncology and Hematology - [address] [place] [address] Madhu Duvall MD 03/07/2025 Orders Only [facility] Oncology and Hematology [address] [place] [address] Madhu Duvall MD 03/06/2025 4:30 PM CDT Telephone Check Up [facility] Oncology and Hematology [facility] [address] [place] [address] Madhu Duvall MD Chronic anemia (Primary Dx) 03/06/2025 Orders Only [facility] Oncology and Hematology [address] [place] [address] Madhu Duvall MD 03/01/2025 Orders Only [facility] Oncology and Hematology [address] [place] [address] Madhu Duvall MD 03/01/2025 External Device Data STL ABSTRACTION Provider, Abstract 02/28/2025 External Device Data STL ABSTRACTION Provider, Abstract 02/28/2025 External Device Data STL ABSTRACTION Provider, Abstract 02/28/2025 Orders Only [facility] Oncology and Hematology [address] [place] [address] Madhu Duvall MD 02/27/2025 10:30 AM CDT Office Visit [facility] Oncology and Hematology [facility] [address] [place] [address] Madhu Duvall MD Chronic anemia (Primary Dx) [...] st Contact Info) Description 06/19/2025 2:15 PM BOAT OUTFITTER Office Visit [facility] Oncology and Hematology - [address] [facility] [address] [place] [address] Madhu Duvall MD [address] [facility] [address] [place] [address] Health Maintenance Due Date Last [...] Resu lt from Last 3 Months Insurance [facility] [employer]
--- OUTSIDE RECORDS SUMMARY | 2025-05-09 16:37 | XMS_ITS | Clinical Summary ---
Author Organization [facility] Address [address] [facility] [place] [address] Care Team Providers Care Labor Economics Professor Name Role Phone Diann Crain RUSSIAN TEACHER-LEASING AGENT Primary Care Provid er Source Comments [facility],non-owned Affiliates and Associated Physician Practices is amultiple site organization consisting of ambulatory clinics and hospital sitesin [place], [place], [place] and [place]. This disclosure is being madepursuant to the Care Everywhere program and may not contain all information available regarding this patient. Last updated 18.[facility] Allergies Active Allergy Reactions Criticality [...] Department Care Team Description 04/19/2025 2:30 PM SADDLE MAKER - 04/19/2025 11:59 PM SADDLE MAKER Hospital Encounter [facility] - Outside Imaging Discharge Disposition: Home or Self Care 04/05/2025 1:15 PM CDT Office Visit [facility] - Rad/Onc [address] [place] [address] Montana Lakhani MD 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 (HCC) (Primary Dx) 04/05/2025 1:00 PM CDT - 05/07/2025 11:59 PM SADDLE MAKER Hospital Encounter [facility] Cancer Care - Radiation Oncology [address] [place] [address] Montana Lakhani MD Discharge Disposition: Home or Self Care 04/05/2025 1:00 PM CDT - 05/07/2025 11:59 PM SADDLE MAKER Hospital Encounter [facility] Cancer [facility] - Radiation Oncology [address] [place] [address] Montana Lakhani MD Discharge Disposition: Home or Self Care 04/05/2025 Travel 04/04/2025 Travel 02/07/2025 Telephone [facility] - Rad[facility]Onc [address] [place] [phone] Argentina Rosenthal RN Vomiting 02/06/2025 Telephone [facility] - Rad/Onc [address] [place] [address] Argentina Rosenthal RN Vomiting from Last [...] on file Legal Sex Female 1:25 PM SADDLE MAKER Gender Identity Not on file Sexual Orientation [...] st Contact Info) Description 07/18/2025 1:00 PM SADDLE MAKER Office Visit [facility] - Rad/Onc [address] [place] [address] Montana Lakhani MD [address] [place] [address] Health Maintenance Due Date Last [...] Outside (04/01/2025 2:41 PM CDT) Narrative [facility] - 04/19/2025 2:42 PM SADDLE MAKER This is a study from an outside facility that has been uploaded into PACS. us Provider [employer] [facility] Final Result Performing Organization Address City/State/[facility] Co de Phone Number [facility] [address] [place] [address] from Last 3 Months Insurance [employer] Care Teams Labor Economics Professor Relationship Specialty Start Date End Date Diann Crain, RUSSIAN TEACHER-LEASING AGENT [address] [place] [address] PCP - General Nurse Practitioner Family 09/15/24
--- OUTSIDE RECORDS SUMMARY | 2025-05-09 16:37 | XMS_ITS ---
Author Organization [facility] Address [address] [place] [address] Phone Care Team Providers Care Surgeon Assistant Name Role Phone Diann Crain PLATE AND WELD INSPECTOR, SIEBEL ADMINISTRATOR Primary Care Provi scot Antonia Rodriguez MD Unavailable [phone] Malvin Estrada MD Unavailable [phone] Taqueria Gresham MD Unavailable [phone] Montana Lakhani MD Unavailable Waqar Frankel MD [...]
== END 2025-05-09 15:55 | disposition home or self-care (01) ==
PROVIDERS: Emergency Provider Emergency Medicine; PCP Nurse Practitioner Family
DX: E87.5 Hyperkalemia (principal); E11.22 Type 2 diabetes mellitus with diabetic chronic kidney disease; N18.9 Chronic kidney disease, unspecified; N30.01 Acute cystitis with hematuria
CPT/HCPCS: 36415; 80053; 81001; 83735; 85025; 99283

== ENCOUNTER 2025-06-13 13:57 | Outpatient (CLI) | payer BC, SELFPAY ==
--- OUTSIDE RECORDS SUMMARY | 2024-08-04 07:00 | XMS_ITS ---
Author Organization [facility] Address [address] [place], [place] [id number] Care Team Providers Care Office Service Coordinator Name Role Phone ABEL AHMADIIC Unavailable [phone] Diann Crain Unavailable Unavailable Allergies Allergen (clinical [...] Female Encounters Encounter Location Date Provider Diagnosis [address] [id number] 08/04/2024 JESUS MANUEL AHMADI Tinea unguium B35.1 ; Pain in right toe(s) M79.674 ; Pain in left toe(s) M79.675 ; Atherosclerosis of [place] arteries of extremities with intermittent claudication, bilateral [...] toe(s) (ICD-10 - M79.675) 08/04/2024 Atherosclerosis of [place] arteries of extremities with intermittent claudication, bilateral [...] develop. Provider Name:AZUCENA ANDRADE, 07/06/2025 11:10:00 AM, [address] [place] [address], [id number], History and Physical Notes * HPI (History [...] debris. They are painful to palpation Neurologic [place] 5.07 monofilamen t diminished protective sensation via [...] Ida GRANDE RDOB: 1 (64 yo F)Acc No.[id number]:08/04/2024 Progress Notes Patient: Ida Frye Provider: Oliver Ahmadi DPM :1960 A ge:63 Y S ex:Female Date:08/04/2024 Address:[address] [place] [address], [address] [place] [address] Subjective: * Chief Complaints: * Aixa nick [...] Dr. Breann gama as 07/2024., I loli [facility]. * ROS: G eneral / Constitutional: Patient [...] Edema: N o edema bilateral. N eurologic: [place] 5.07 monofilament d iminished protective sensation via [...] - M79.675 4 . A therosclerosis of [place] arteries of extremities with intermittent claudication, bilateral [...] problems develop.) Billing Information: * Visit Code: 27057 Office Visit, New Pt., Level 3. * Electronic signature of JESUS MANUEL AHMADI DPM on 06/13/2025 at 02:16 PM RELAY MOTORMAN Sign off status: Pending * Provider: Oliver Ahmadi DPM Date: 0 08/04/2024 Generated for Sara ovalle/Bowen/Farheenitting on: 1 02:16 PM RELAY MOTORMAN
--- OUTSIDE RECORDS SUMMARY | 2025-02-23 05:40 | XMS_ITS ---
Author Organization [facility] Address [address] [place], [place] [address] Care Team Providers Care Mechanical Lead Name Role Phone JESUS MANUEL AHMADI Unavailable [phone] Diann Crain Unavailable Unavailable AZUCENA MYLES Unavailable [phone] Allergies Allergen (clinical drug ingredient) Drug/Non Drug [...] 02/23/2025 Encounters Encounter Location Date Provider Diagnosis [address] [id number] 02/23/2025 AZUCENA MYLES Atherosclerosis of [place] arteries of extremities with intermittent claudication, bilateral legs I70.213 ; Onychomycosis B35.1 ; Pain in right toe(s) M79.674 and Pain in left toe(s) M79.675 Assessments Encounter Date Diagnosis (ICD Code) Assessment Notes Treatment Notes Treatment Clinical Notes Section Notes 02/23/2025 Atherosclerosis of [place] arteries of extremities with intermittent claudication, bilateral [...] Treatment Treatment Notes Assessment Notes Atherosclerosis of [place] ar teries of extremities with intermittent claudication, [...] Provider Name:AZUCENA ANDRADE, 07/06/2025 11:10:00 AM, [address] [place], [place], [id number], History and Physical Notes * HPI (History [...] Ida GRANDE RDOB: 1 (64 yo F)Acc No.[id number]:02/23/2025 Patient: Ida Frye Provider: Jeff MYLES :1960 A ge:64 Y S ex:Female Date:02/23/2025 Address:[address] [place] [address], [address] [place], [place] [id number] Subjective: * Chief Complaints: * * General [...] B35.1 (Primary) 2 . A therosclerosis of [place] arteries of extremities with intermittent claudication, bilateral legs - I70.213 3 . P ain in right toe(s) - M79.674 4 . P ain in left toe(s) - M79.675 Plan: * Treatment: 2. A therosclerosis of [place] arteries of extremities with intermittent claudication, bilateral legs Notes: Patient educated on risks and aggravating factors of PVD, including conservative treatment options such as a diet and exercise regimen to aid in slowing progression of vascular disease. Check and protect LE bilateral daily. Call if any changes or concerns. * Follow Up: 9 weeks Billing Information: * Visit Code: 73544 Office Visit, Est Pt., Level 3. * Procedure Codes: * Electronic signature of LIZZY MYLES DPM on 06/13/2025 at 02:16 PM GREENHOUSE STAFF Sign off status: Pending * Provider: Jeff MYLES Date: 0 02/23/2025 Generated for Sara ovalle/Bowen/Aranza on: 1 02:16 PM GREENHOUSE STAFF
--- OUTSIDE RECORDS SUMMARY | 2025-05-04 05:40 | XMS_ITS ---
Author Organization [facility] Address [address] [place], [place] [address] Care Team Providers Care Spanish Translator Name Role Phone JESUS MANUEL AHMADI Unavailable [phone] Diann Crain Unavailable Unavailable AZUCENA MYLES Unavailable [phone] Allergies Allergen (clinical drug ingredient) Drug/Non Drug [...] 05/04/2025 Encounters Encounter Location Date Provider Diagnosis [address] [id number] 05/04/2025 AZUCENA MYLES Onychomycosis B35.1 ; Pain in right toe(s) M79.674 ; Pain in left toe(s) M79.675 ; Atherosclerosis of [place] arteries of extremities with intermittent claudication, bilateral legs I70.213 and Type 2 diabetes mellitus with other circulatory complications E11.59 Assessments Encounter Date Diagnosis (ICD Code) Assessment Notes Treatment Notes Treatment Clinical Notes Section Notes 05/04/2025 Onychomycosis (ICD-10 - B35.1) Nails 1-5 Bilateral were debrided extensively with nail nippers and emery board, reducing length and girth to pink healthy tissue with any subungual debris and necrotic tissue removed 05/04/2025 Pain in right toe(s) (ICD-10 - M79.674) 05/04/2025 Pain in left toe(s) (ICD-10 - M79.675) 05/04/2025 Atherosclerosis of atka arteries of extremities with intermittent claudication, bilateral legs (ICD-10 - I70.213) Patient educated on risks and aggravating factors of PVD, including conservative treatment options such as a diet and exercise regimen to aid in slowing progression of vascular disease. Check and protect LE bilateral daily. Call if any changes or concerns. 05/04/2025 Type 2 diabetes mellitus with other circulatory complications (ICD-10 - E11.59) Plan Of Treatment Treatment Notes Assessment Notes Onychomycosis Nails 1-5 Bilateral were debrided extensively with nail nippers and emery board, reducing length and girth to pink healthy tissue with any subungual debris and necrotic tissue removed Atherosclerosis of atka ar teries of extremities with intermittent claudication, bilateral legs Patient educated on risks and aggravatin g factors of PVD, including conservative treatment options such as a diet and exercise regimen to aid in slowing progression of vascular disease. Check and protect LE bilateral daily. Call if any changes or concerns. Next Appt Details Follow Up: 9 weeks, Reason: Provider Name:AZUCENA V SERGEY LOZAMARIA LUZ, 07/06/2025 11:10:00 AM, [address] [place] [address], [id number], History and Physical Notes * HPI (History [...] erally Progress Notes * Ida GRANDE RDOB: (64 yo F)Acc No.[id number]:05/04/2025 Patient: Ida Frye Provider: Jeff MYLES :1960 A ge:64 Y S ex:Female Date:05/04/2025 Address:[address] [facility], [address] [facility], [facility] Subjective: * Chief Complaints: * * General [...] O nychomycosis - B35.1 (Primary) 2 . P ain in right toe(s) - M79.674? 3. P ain in left toe(s) - M79.675 4 . A therosclerosis of [place]ka arteries of extremities with intermittent claudication, bilateral legs - I70.213 5 . T ype 2 diabetes mellitus with other circulatory complications - E11.59 Plan: * Treatment: 2. A therosclerosis of atka arteries of extremities with intermittent claudication, bilateral [...] 9 weeks Billing Information: * Visit Code: 47633 Office Visit, Est Pt., Level 3. * Procedure Codes: * Electronic signature of LIZZY MYLES DPM on 06/13/2025 at 02:15 PM ELECTRONIC PREPRESS OPERATOR Sign off status: Pending * Provider: Jeff MYLES Date: 07/04/2024 Generated for Sara ovalle/Bowen/Aranza on: 02:15 PM ELECTRONIC PREPRESS OPERATOR
[2025-06-13 14:13] LABS: Hematocrit 32.9 % (35.0-49.0); Hemoglobin 10.8 g/dL (12.0-15.0); Immature Platelet Fraction Pct 1.5 % (1.0-7.0); Mean Corpuscular HGB Conc 32.8 g/dL (32-36); Mean Corpuscular Hemoglobin 28.0 pg (27.0-31.0); Mean Corpuscular Volume 85.2 fL (78.0-102.0); Platelet Count Result 96 K/mm3 (150-420); Red Blood Count 3.86 M/mm3 (4.20-5.40); White Blood Count 4.3 K/mm3 (4.8-10.8)
--- OUTSIDE RECORDS SUMMARY | 2025-06-13 14:16 | XMS_ITS | Clinical Summary ---
Author Organization [facility] Address [address] [place] [address] Phone Care Team Providers Care Field Artillery Fire Control Man Name Role Phone Diann Crain APRN, WEEKDAY BABYSITTER Primary Care Provi scot Antonia Rodriguez MD Unavailable [phone] Malvin Estrada MD Unavailable [phone] Taqueria Gresham MD Unavailable [phone] Montana Lakhani MD Unavailable [phone] Waqar Frankel MD Unavailable [phone] Allergies Active Allergy Reactions Criticality Noted Date [...] 7 days for 6 cycles 24 Tablet Active gabapentin (NEURONTIN) 300 MG Capsule TAKE 1 CAPSULE BY MOUTH EVERY DAY AT NIGHT 30 Capsule 1 5 Active Additional Information Patient not taking.Reported on 05/18/2025 prochlorperazin e (COMPAZINE) 10 MG TabletIndicatio ns:Cervical cancer, FIGO stage IIB Take 1 Tablet by mouth every 6 hours as needed for Nausea - 2nd line. Take one tablet every 6 hours as needed for nausea. 30 Tablet 2 Active atorvastatin (LIPITOR) 10 MG Tablet Take 10 mg by mouth daily. Active hydroCHLOROthia zide 12.5 MG Tablet Take 12.5 mg by mouth daily. Active lisinopril (PRINIVIL, ZESTRIL) 10 MG Tablet Take 10 mg by mouth 2 times daily. Active ferrous sulfate 325 (65 Fe) MG Tablet Take 325 mg by mouth daily. Active cyanocobalamin 1000 MCG Tablet Take 1,000 mcg by mouth daily. Active Active Problems Problem Noted Date [...] Encounters Date Type Department Care Team Description 06/01/2025 11:30 AM FIRE SAFETY MANAGER [facility] [address] [place] [address] Waqar Farnkel MD Diabetic polyneuropathy associated with type 2 diabetes mellitus; Foot drop, bilateral Discharge Disposition: Discharged to home or Selfcare 05/30/2025 Travel 05/18/2025 9:15 AM FIRE SAFETY MANAGER Office Visit [facility] [address] [place] [address] Waqar Frankel MD Diabetic polyneuropathy associated with type 2 diabetes mellitus (Primary Dx); Cervical cancer, FIGO stage IIB; Foot drop, bilateral; Right leg weakness Discharge Disposition: Discharged to home or Selfcare 05/16/2025 Travel 04/11/2025 Telephone [facility] [address] [place] [phone] Taqueria Gresham MD 04/07/2025 Telephone [facility] [address] [place] [phone] Taqueria Gresham MD Follow-up (Please see dictated note.) 04/06/2025 10:30 AM CDT Office Visit [facility] [address] [place] [phone] Taqueria Gresham MD Right leg weakness (Primary Dx); Cervical cancer, FIGO stage IB; History of therapeutic radiation; History of cancer chemotherapy Discharge Disposition: Discharged to home or Selfcare 04/06/2025 Travel 04/04/2025 Travel 04/01/2025 6:59 AM CDT - 04/01/2025 11:59 PM CDT Hospital Encounter [facility] [address] [place] [address] Barry Martin MD Discharge Disposition: Discharged to home or Selfcare 03/30/2025 Travel from Last 3 Months Family History [...] Sign Reading Time Taken Comments Blood Pressure 142/82 05/18/2025 9:30 AM FIRE SAFETY MANAGER Pulse 79 05/18/2025 9:30 AM FIRE SAFETY MANAGER Temperature 36.6 C (97.8 F) 05/18/2025 9:30 AM FIRE SAFETY MANAGER Respiratory Rate 16 05/18/2025 9:30 AM FIRE SAFETY MANAGER Oxygen Saturation 94% 05/18/2025 9:30 AM FIRE SAFETY MANAGER Inhaled Oxygen Concentration - - Weight 76 kg (167 lb 9.6 oz) 05/18/2025 9:30 AM FIRE SAFETY MANAGER Height 172.7 cm (5' 8) 05/18/2025 9:30 AM FIRE SAFETY MANAGER Body Mass Index 25.48 05/18/2025 9:30 AM FIRE SAFETY MANAGER Plan of Treatment Upcoming Encounters Date Type Department Care Team (Late st Contact Info) Description 07/11/2025 10:00 AM FIRE SAFETY MANAGER Office Visit [facility] [address] [place] [address] Taqueria Gresham MD [address] [place] [address] Discharge Disposition: Discharged to home or Selfcare 08/17/2025 10:15 AM FIRE SAFETY MANAGER Office Visit [facility] [address] [place] [phone] Waqar Frankel MD [address] [place] [address] Health Maintenance Due Date Last Done Comments [...] 05/06/2022, Additional history exists Diabetes: Nephropathy Screening 05/18/2026 05/18/2025, 04/21/2025, 04/21/2025, Additional history exists Colonoscopy 10/12/2034 10/12/2024 Colorectal Cancer Screening 10/12/2034 Respiratory Syncytial Virus (RSV) Immunization (Adult) Completed 07/26/2023 TdaP Immunization Completed 04/14/2024 Influenza Immunization Completed , 07/20/2024, 05/28/2023, Additional history exists Hepatitis B Immunization Aged Out No longer eligible based on patient's age to complete this topic Human Papillomavirus (HPV) Immunization (No Doses Required) Completed Meningococcal Immunization (ACWY) Aged Out No longer eligible based on patient's age to complete this topic Rotavirus Immunization Aged Out No lo nger eligible based on patient's age to complete this topic Procedures Procedure Name Priority Date/Time Associated Diagnosis Comments THYROID SCREEN WITH REFLEX Routine 05/18/2025 10:50 AM FIRE SAFETY MANAGER Diabetic polyneuropathy associated with type 2 diabetes mellitus Foot drop, bilateral CBC WITH AUTO DIFFERENTIAL Routine 05/18/2025 10:50 AM FIRE SAFETY MANAGER Diabetic polyneuropathy associated with type 2 diabetes mellitus Foot drop, bilateral ERYTHROCYTE SEDIMENTATION RATE (ESR) Routine 05/18/2025 10:50 AM FIRE SAFETY MANAGER Diabetic polyneuropathy associated with type 2 diabetes mellitus Foot drop, bilateral IMMUNOFIXATION W/ ELECTROPHORESIS SERUM Routine 05/18/2025 10:50 AM FIRE SAFETY MANAGER Diabetic polyneuropathy associated with type 2 diabetes mellitus Foot drop, bilateral METHYLMALONIC ACID, QN, MMAS Routine 05/18/2025 10:50 AM FIRE SAFETY MANAGER Diabetic polyneuropathy associated with type 2 diabetes mellitus Foot drop, bilateral THYROID SCREEN WITH REFLEX Routine 05/18/2025 10:50 AM FIRE SAFETY MANAGER Diabetic polyneuropathy associated with type 2 diabetes mellitus Foot drop, bilateral VITAMIN B12 Routine 05/18/2025 10:50 AM FIRE SAFETY MANAGER Diabetic polyneuropathy associated with type 2 diabetes mellitus Foot drop, bilateral CMP (COMPREHENSIVE METABOLIC PANEL) Routine 05/18/2025 10:50 AM FIRE SAFETY MANAGER Diabetic polyneuropathy associated with type 2 diabetes mellitus Foot drop, bilateral COMPLETE BLOOD COUNT (CBC) WITH DIFF Routine 05/18/2025 10:50 AM FIRE SAFETY MANAGER Diabetic polyneuropathy associated with type 2 diabetes mellitus Foot drop, bilateral LAB - MISCELLANEOUS 04/21/2025 1 2:00 AM FIRE SAFETY MANAGER COMPLETE BLOOD COUNT (CBC) WITH DIFF 04/21/2025 12:00 AM FIRE SAFETY MANAGER CREATINE KINASE (CK) TOTAL 04/21/2025 12:00 AM FIRE SAFETY MANAGER CMP (COMPREHENSIVE METABOLIC PANEL) 04/21/2025 12:00 AM FIRE SAFETY MANAGER CMP (COMPREHENSIVE METABOLIC PANEL) Routine 04/21/2025 12:00 AM FIRE SAFETY MANAGER COMPLETE BLOOD COUNT (CBC) WITH DIFF Routine 04/21/2025 12:00 AM FIRE SAFETY MANAGER CT ABDOMEN PELVIS W/ CONTRAST Routine 04/01/2025 7:25 AM CDT Cervical cancer, FIGO stage IIB [facility] COLONOSCOPY 10/12/2024 12:00 AM CDT from Last 3 Months or Most Recently Relevant to Health Maintenance Results * THYROID SCREEN WITH REFLEX (05/18/2025 10:50 AM FIRE SAFETY MANAGER) Pathologist [facility] TSH 1.186 0.300 - 5.000 mIU/L 05/18/2025 12:41 PM FIRE SAFETY MANAGER [facility] Blood Venipuncture / Unknown 05/18/2025 10:50 AM FIRE SAFETY MANAGER 05/18/2025 11:57 AM FIRE SAFETY MANAGER us Waqar Frankel MD CHEMISTRY ORDERABLES Final R esult [facility] [address] [place] [address] * (ABNORMAL) CBC WITH AUTO DIFFERENTIAL (05/18/2025 10:50 AM FIRE SAFETY MANAGER) Pathologist [facility] WBC 6.55 4.00 - 12.00 10(3)/mcL 05/18/2025 12:03 PM FIRE SAFETY MANAGER [facility] RBC 3.93 3.80 - 5.30 10(6)/mcL 05/18/2025 12:03 PM FIRE SAFETY MANAGER [facility] HEMOGLOBIN (HGB) 11.1(L) 12.0 - 15.8 g/dL 05/18/2025 12:03 PM FIRE SAFETY MANAGER [facility] HEMATOCRIT (HCT) 34.8(L) 36.0 - 47.0 % 05/18/2025 12:03 PM FIRE SAFETY MANAGER [facility] MCV 88.5 82.0 - 96.0 fL 05/18/2025 12:03 PM FIRE SAFETY MANAGER [facility] MCH 28.2 26.0 - 34.0 pg 05/18/2025 12:03 PM FIRE SAFETY MANAGER [facility] MCHC 31.9 31.0 - 36.0 g/dL 05/18/2025 12:03 PM [facility] PLATELET COUNT 162 140 - 440 10(3)/[facility] 05/18/2025 12:03 PM [facility] RDW 13.2 11.8 - 15.5 % 05/18/2025 12:03 PM [facility] MPV 9.9 9.7 - 12.4 fL 05/18/2025 12:03 PM [facility] NEUTROPHILS 74.4(H) 47.0 - 73.0 % 05/18/2025 12:03 PM [facility] LYMPHOCYTES 9.2(L) 18.0 - 42.0 % 05/18/2025 12:03 PM [facility] MONOCYTES 7.8 4.0 - 12.0 % 05/18/2025 12:03 PM [facility] EOSINOPHILS 6.4(H) 0.0 - 5.0 % 05/18/2025 12:03 PM [facility] BASOPHILS 1.7(H) 0.0 - 1.0 % 05/18/2025 12:03 PM [facility] IMMATURE GRANULOCYTE 0.5(H) 0.0 - 0.4 % 05/18/2025 12:03 PM [facility] Comment:Immature Granulocyte s includes Metamyelocytes, Myelocytes, and Promyelocytes. ABSOLUTE NEUTROPHILS 4.88 1.60 - 7.70 10(3)/mcL 05/18/2025 12:03 PM [facility] ABSOLUTE LYMPHOCYTES 0.60(L) 1.30 - 3.20 10(3)/mcL 05/18/2025 12:03 PM [facility] ABSOLUTE MONOCYTES 0.51 0.20 - 1.00 10(3)/mcL 05/18/2025 12:03 PM [facility] ABSOLUTE EOSINOPHIL 0.42(H) 0.00 - 0.40 10(3)/mcL 05/18/2025 12:03 PM [facility] ABSOLUTE BASOPHILS 0.11(H) 0.00 - 0.10 10(3)/mcL 05/18/2025 12:03 PM FIRE SAFETY MANAGER [facility] ABSOLUTE IMMATURE GRANULOCYTE 0.03 0.00 - 0.03 10 (3) mcL. 05/18/2025 12:03 PM FIRE SAFETY MANAGER [facility] NRBC PER 100 WBC 0 05/18/20 25 12:03 PM FIRE SAFETY MANAGER [facility] Blood Venipuncture / Unknown 05/18/2025 10:50 AM FIRE SAFETY MANAGER 05/18/2025 11:58 AM FIRE SAFETY MANAGER Waqar Frankel MD HEMATOLOGY ORDERABLES Final Result Performing Organization Address City/[facility]/ZIP Co de Phone Number [facility] [address] [place] [address] * METHYLMALONIC ACID, QN, MMAS (05/18/2025 10:50 AM FIRE SAFETY MANAGER) METHYLMALONIC ACID, QN 0.17 <=0.40 nmol/mL 05/23/2025 8:21 AM FIRE SAFETY MANAGER [facility] Comment: ADDITIONAL INFORMATION This test was developed and its performance characteristics determined by [facility] in a manner consistent with CLIA requirements. This test has not been cleared or approved by the U.S. Food and Drug Administration. Test Performed by: [facility] - [address] [address] Draw Off Worker: Irvin Phipps Ph.D.; CLIA# [id number] Blood Venipuncture / Unknown 05/18/2025 10:50 AM FIRE SAFETY MANAGER 05/18/2025 11:57 AM FIRE SAFETY MANAGER us Waqar Frankel MD LAB SEND OUTS Final Result [facility] US * VITAMIN B12 (05/18/2025 10:50 AM FIRE SAFETY MANAGER) Pathologist [facility] VITAMIN B12 680 213 - 816 pg/mL 05/18/2025 12:53 PM FIRE SAFETY MANAGER [facility] Blood Venipuncture / Unknown 05/18/2025 10:50 AM FIRE SAFETY MANAGER 05/18/2025 11:57 AM FIRE SAFETY MANAGER Waqar Frankel MD CHEMISTRY ORDERABLES Final R esult Performing Organization Address City/[facility]/ZIP Co de Phone Number [facility] [address] [place] [address] * ERYTHROCYTE SEDIMENTATION RATE (ESR) (05/18/2025 10:50 AM FIRE SAFETY MANAGER) [facility] ESR (SED RATE, ERYTHROCYTE SEDIMENTATION RATE) 11 <30 mm/h 05/18/2025 12:13 PM FIRE SAFETY MANAGER [facility] Comment: Patients presenting with increased level of fibrinogen, gamma globulins, or abnormally shaped RBCs could affect the results for the erythrocyte sedimentation rate (ESR). Results should be clinically correlated. Blood Venipuncture / Unknown 05/18/2025 10:50 AM FIRE SAFETY MANAGER 05/18/2025 11:58 AM FIRE SAFETY MANAGER Waqar Frankel MD HEMATOLOGY ORDERABLES Final Result Performing Organization Address [facility] Co de Phone Number [facility] [address] [place] [address] * (ABNORMAL) IMMUNOFIXATION W/ ELECTROPHORESIS SERUM (05/18/2025 10:50 AM FIRE SAFETY MANAGER) [facility] TOTAL PROTEIN 6.7 6.0 - 8.0 g/dL 05/25/2025 1:42 PM FIRE SAFETY MANAGER [facility] % ALBUMIN 54.9(L) 55.8 - 66.7 % 05/25/2025 1:42 PM FIRE SAFETY MANAGER [facility] ALBUMIN SERUM 3.7 2.5 - 5.4 g/dL 05/25/2025 1:42 PM FIRE SAFETY MANAGER [facility] % ALPHA 1 GLOBULIN 3.5 2.9 - 4.9 % 05/25/2025 1:42 PM FIRE SAFETY MANAGER [facility] ALPHA 1 0.2 0.2 - 0.4 g/dL 05/25/2025 1:42 PM [facility] % ALPHA 2 GLOBULIN 13.1(H) 7.1 - 11.8 % 05/25/2025 1:42 PM [facility] ALPHA 2 0.9 0.5 - 1.0 g/dL 05/25/2025 1:42 PM [facility] % BETA 15.5(H) 8.4 - 13.1 % 05/25/2025 1:42 PM [facility] BETA-GLOBULIN 1.0 0.5 - 1.1 g/dL 05/25/2025 1:42 PM [facility] % GAMMA GLOBULIN 12.9 11.1 - 18.8 % 05/25/2025 1:42 PM [facility] GAMMA 0.9 0.7 - 1.5 g/dL 05/25/2025 1:42 PM [facility] IMMUNOGLOBULIN G 827 552 - 1,631 mg/dL 05/25/2025 1:42 PM [facility] IMMUNOGLOBULIN A 293 69 - 517 mg/dL 05/25/2025 1:42 PM [facility] IMMUNOGLOBULIN M 66 33 - 293 mg/dL 05/25/2025 1:42 PM [facility] INTERPRETATION SERUM No abnormal protein band is detected by serum protein electrophoresis. Serum immunofixation electrophoresis is negative for monoclonal immunoglobulins. Reviewed by Ángel Mays M.D. 05/25/2025 1:42 PM [facility] A/G RATIO, SERUM 1.2 05/25/20 1:42 PM [facility] Blood Venipuncture / Unknown 05/18/2025 10:50 AM FIRE SAFETY MANAGER 05/18/2025 11:57 AM FIRE SAFETY MANAGER us Waqar Frankel MD CHEMISTRY ORDERABLES Final R esult [facility] [address] [place] [address], * (ABNORMAL) CMP (COMPREHENSIVE METABOLIC PANEL) (05/18/2025 10:50 AM FIRE SAFETY MANAGER) Only the most recent of3 resultswithin the time period is included. SODIUM 136 136 - 145 mmol/L 05/18/2025 12:31 PM [facility] POTASSIUM 4.3 3.5 - 5.1 mmol/L 05/18/2025 12:31 PM [facility] CHLORIDE 100 98 - 107 mmol/L 05/18/2025 12:31 PM [facility] CO2, VENOUS 26 22 - 30 mmol/L 05/18/2025 12:31 PM [facility] ANION GAP 14.3 <18.0 mmol/L 05/18/2025 12:31 PM [facility] GLUCOSE 107(H) 70 - 99 mg/dL 05/18/2025 12:31 PM [facility] BUN 38(H) 10 - 20 mg/dL 05/18/2025 12:31 PM [facility] CREATININE, BLOOD 1.28(H) 0.60 - 1.00 mg/dL 05/18/2025 12:31 PM [facility] BUN/CREATININE RATIO 30(H) 12 - 20 ratio 05/18/2025 12:31 PM [facility] TOTAL PROTEIN 7.1 6.0 - 8.0 g/dL 05/18/2025 12:31 PM [facility] ALBUMIN 4.3 3.5 - 5.0 g/dL 05/18/2025 12:31 PM [facility] A/G RATIO 1.5 1.0 - 2.2 05/18/2025 12:31 PM [facility] CALCIUM 9.6 8.7 - 10.5 mg/dL 05/18/2025 12:31 PM [facility] T BILI 0.4 0.2 - 1.2 mg/dL 05/18/2025 12:31 PM [facility] SGOT (AST) 15 <43 U/L 05/18/2025 12:31 PM [facility] SGPT (ALT) 9 <56 U/L 05/18/2025 12:31 PM [facility] ALKALINE PHOSPHATASE 44 40 - 150 U/L 05/18/2025 12:31 PM [facility] IS THE PATIENT REQUIRED TO BE FASTING? No 05/18/2025 12:31 PM [facility] GFR, ESTIMATED 47(L) >=60 05/18/2025 12:31 PM [facility] Comment: Creatinine Clearance is the preferred criteria for selecting drug dose adjustments in renally impaired patients. The GFR is provided as additional pertinent clinical information. GFR is reported in mL/min/1.73 sq m. Calculation based on the 2020 Chronic Kidney Disease Epidemiology Collaboration (CKD-EPI) equation refit without adjustment for race. GFR, EST. 51(L) >=60 025 12:31 PM [facility] Comment: Creatinine Clearance is the preferred criteria for selecting drug dose adjustments in renally impaired patients. The GFR is provided as additional pertinent clinical information. GFR is reported in mL/min/1.73 sq m. Calculation based on the 2009 Chronic Kidney Disease Epidemiology Collaboration (CKD-EPI). GFR, EST. NONAFRICAN 42(L) >=60 05/18/2025 12:31 PM [facility] Comment: Creatinine Clearance is the preferred criteria for selecting drug dose adjustments in renally impaired patients. The GFR is provided as additional pertinent clinical information. GFR is reported in mL/min/1.73 sq m. Calculation based on the 2009 Chronic Kidney Disease Epidemiology Collaboration (CKD-EPI). Blood Venipuncture / Unknown 05/18/2025 10:50 AM FIRE SAFETY MANAGER 05/18/2025 11:57 AM FIRE SAFETY MANAGER us Waqar Frankel MD CHEMISTRY ORDERABLES Final R esult [facility] [address] [place] [address] * LAB - MISCELLANEOUS (04/21/2025 12:00 AM FIRE SAFETY MANAGER) 04/21/2025 Taqueria Gresham MD CHEMISTRY ORDERABLES Fi nal Result Performing Organization Address City/[facility] de Phone Number SCAN * CREATINE KINASE (CK) TOTAL (04/21/2025 12:00 AM FIRE SAFETY MANAGER) 04/21/2025 Taqueria Gresham MD CHEMISTRY ORDERABLES Fi nal Result Performing Organization Address [facility] de Phone Number SCAN * COMPLETE BLOOD COUNT (CBC) WITH DIFF (04/21/2025 12:00 AM FIRE SAFETY MANAGER) Only the most recent of2 resultswithin the time period is included. 04/21/2025 Taqueria Gresham MD HEMATOLOGY ORDERABLES F inal Result Performing Organization Address [facility] de Phone Number SCAN * CT [...] CDT DICTATING PHYSICIAN: Sean Sharma M.D. - [facility] Examination: CT abdomen and pelvis [...] 04/01/2025 DICTATING PHYSICIAN: [facility]: CT abdomen and pelvis with [...] Most Recently Relevant to Health Maintenance Insurance [facility] Care Teams Field Artillery Fire Control Man Relationship Specialty Start Date End Date Diann Crain, MOLECULAR BIOLOGY PROFESSOR, WEEKDAY BABYSITTER [address] [place] [address] PCP - General Advanced Practice Nurse 10/10/24 Antonia Rodriguez MD [address] [address] Consulting Physician Gynecologic Oncology 10/11/24 Malvin Estrada MD [address] [place] [address] Consulting Physician Medical Oncology 10/11/24 Taqueria Gresham MD [address] [place] [address] Consulting Physician Radiation Oncology 10/11/24 [place] [address] [place] [address] Consulting Physician Radiation Oncology 10/12/24 Waqar Frankel MD [address] [place] [address] Consulting Physician Neurology 04/07/25
--- OUTSIDE RECORDS SUMMARY | 2025-06-13 14:16 | XMS_ITS | Clinical Summary ---
Author Organization [facility] Address [address] [place] [id number] Care Team Providers Care Windows Mobile Developer Name Role Phone Chu Lorenzo MD Primary [...] Sex Assigned at Female 04/29/2018 9:29 PM CREDIT ADMINISTRATION MANAGER Legal Sex Female 5:33 PM CREDIT ADMINISTRATION MANAGER Gender Identity Female 04/29/2018 9:29 PM CREDIT ADMINISTRATION MANAGER Sexual Orientation Straight 04/29/2018 9: 29 PM CREDIT ADMINISTRATION MANAGER Last Filed Vital Signs Vital Sign Reading Time Taken Comments Blood Pressure 144/79 05/04/2018 1:50 PM CREDIT ADMINISTRATION MANAGER Pulse 69 05/04/2018 1:50 PM CREDIT ADMINISTRATION MANAGER Temperature 36.6 C (97.9 F) 05/04/2018 1:50 PM CREDIT ADMINISTRATION MANAGER Respiratory Rate 18 05/04/2018 1:50 PM CREDIT ADMINISTRATION MANAGER Oxygen Saturation 100% 05/04/2018 1:50 PM CREDIT ADMINISTRATION MANAGER Inhaled Oxygen Concentration - - Weight 86.8 kg (191 lb 5.8 oz) 05/04/2018 4:43 A M CREDIT ADMINISTRATION MANAGER Height 172.7 cm (5' 8) 04/29/2018 9:12 PM CREDIT ADMINISTRATION MANAGER Body Mass Index 29.1 04/29/2018 9:12 PM CREDIT ADMINISTRATION MANAGER Plan of Treatment Health Maintenance Due [...] 11:48 PM 05/04/2018 7:30 PM Care Teams Windows Mobile Developer Relationship Specialty Start Date End Date Chu Lorenzo MD PCP - General SURGERY 04/24/18
--- OUTSIDE RECORDS SUMMARY | 2025-06-13 14:16 | XMS_ITS | Patient Health Record ---
Author Organization [facility] Address [address] [place], [place] [id number] Care Team Providers Care Contact And Service Clerks Supervisor Name Role Phone JESUS MANUEL AHMADI Unavailable [phone] Diann Crain Unavailable Unavailable JESUS MANUEL MCDONOUGH Unavailable [phone] AZUCENA MYLES Unavailable [phone] Allergies Allergen (clinical drug ingredient) Drug/Non Drug [...] Verio - Strip TWICE A DAY In [facility] Duration: 25 Days Active FreeStyle Kim 3 [...] Encounters Encounter Location Date Provider Diagnosis [address] [id number] 08/04/2024 JESUS MANUEL AHMADI Tinea unguium B35.1 ; Pain in right toe(s) M79.674 ; Pain in left toe(s) M79.675 ; Atherosclerosis of [place] arteries of extremities with intermittent claudication, bilateral legs I70.213 and Type 2 diabetes mellitus with other circulatory complications E11.[address] [id number] 02/23/2025 AZUCENA MYLES Atherosclerosis of [place] arteries of extremities with intermittent claudication, bilateral legs I70.213 ; Onychomycosis B35.1 ; Pain in right toe(s) M79.674 and Pain in left toe(s) M79.[address] [id number] 05/04/2025 AZUCENA MYLES Onychomycosis B35.1 ; Pain in right toe(s) M79.674 ; Pain in left toe(s) M79.675 ; Atherosclerosis of [place] arteries of extremities with intermittent claudication, bilateral legs I70.213 and Type 2 diabetes mellitus with other circulatory complications E11.59 [facility] [address] [place] [id number] 10/06/2024 JESUS MANUEL MCDONOUGH Atherosclerosis of [place] arteries of extremities with intermittent claudication, bilateral [...] and necrotic tissue removed 02/23/2025 Atherosclerosis of [place] arteries of extremities with intermittent claudication, bilateral legs (ICD-10 - I70.213) Patient educated on risks and aggravating factors of PVD, including conservative treatment options such as a diet and exercise regimen to aid in slowing progression of vascular disease. Check and protect LE bilateral daily. Call if any changes or concerns. 10/06/2024 Atherosclerosis of [place] arteries of extremities with intermittent claudication, bilateral legs (ICD-10 - I70.213) 02/23/2025 Onychomycosis (ICD-10 - B35.1) Nails 1-5 Bilateral were debrided extensively with nail nippers and emery board, reducing length and girth to pink healthy tissue with any subungual debris and necrotic tissue removed 05/04/2025 Pain in right toe(s) (ICD-10 - M79.674) 05/04/2025 Onychomycosis (ICD-10 - B35.1) Nails 1-5 Bilateral were debrided extensively with nail nippers and emery board, reducing length and girth to pink healthy tissue with any subungual debris and necrotic tissue removed 05/04/2025 Pain in left toe(s) (ICD-10 - M79.675) 10/06/2024 Pain in right toe(s) (ICD-10 - M79.674) 02/23/2025 Pain in right toe(s) (ICD-10 - M79.674) 08/04/2024 Pain in right toe(s) (ICD-10 - M79.674) 08/04/2024 Pain in left toe(s) (ICD-10 - M79.675) 02/23/2025 Pain in left toe(s) (ICD-10 - M79.675) 10/06/2024 Pain in left toe(s) (ICD-10 - M79.675) 05/04/2025 Atherosclerosis of [place] arteries of extremities with intermittent claudication, bilateral legs (ICD-10 - I70.213) Patient educated on risks and aggravating factors of PVD, including conservative treatment options such as a diet and exercise regimen to aid in slowing progression of vascular disease. Check and protect LE bilateral daily. Call if any changes or concerns. 08/04/2024 Atherosclerosis of [place] arteries of extremities with intermittent claudication, bilateral legs (ICD-10 - I70.213) 05/04/2025 Type 2 diabetes mellitus with other circulatory complications (ICD-10 - E11.59) 08/04/2024 Type 2 diabetes mellitus with other [...] Details Provider Name:AZUCENA ANDRADE, 07/06/2025 11:10:00 AM, [address] [place] [address], [id number], Insurance Providers Payer Name Payer Address Payer Phone Subscriber Number Group Number Insured Name Patient Relationship to Insured Coverage Start Date Coverage End Date [facility] ATTN CLAIMS [address] [place] [address] [id number] [place] Self - patient is the insured Medical (General) History Medical History History ICD Code neuropathy Arthritis Diabetic varicose veins
--- OUTSIDE RECORDS SUMMARY | 2025-06-13 14:17 | XMS_ITS | Clinical Summary ---
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 Name Role Phone Unavailable Primary Care Provider [...] Encounters Date Type Department Care Team Description 06/06/2025 External Device Data [facility] ABSTRACTION Provider, Abstract 06/06/2025 External Device Data [facility] Provider, Abstract 05/02/2025 External Device Data [facility]STRA[facility] Provider, Abstract 04/12/2025 External Device Data [facility]STRA[facility] Provider, Abstract 04/12/2025 External Device Data [facility]STRACTION Provider, Abstract 04/05/2025 External Device Data [facility] ABSTRACTION Provider, Abstract 04/04/2025 External Device Data [facility] ABSTRACTION Provider, Abstract 03/29/2025 Refill [facility] Oncology and Hematology - Murtaza Genaro Farr [address] [place] [id number] Madhu Duvall MD from Last 3 Months Family History [...] st Contact Info) Description 06/19/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
--- OUTSIDE RECORDS SUMMARY | 2025-06-13 14:17 | XMS_ITS ---
Author Organization [facility] Address [address] [place] [address] Phone Care Team Providers Care Fulfillment Associate Name Role Phone Diann Crain APRN, COVERING MACHINE OPERATOR HELPER Primary Care Provi scot Antonia Rodriguez MD Unavailable [phone] Malvin Estrada MD Unavailable [phone] Taqueria Gresham MD Unavailable [phone] [place] Lakhani MD Unavailable Waqar Frankel MD [...] insulin 10/10/2024 Current Treatment and Therapy Plans No current plan information found. Past Treatment and Therapy Plans ONCOLOGY TREATMENT Plan Name Start Date Discontinue Date Treatment Medications Discontinue Reason Plan Provider Cycles [facility]: CISplatin (weekly) with Concurrent Radiation - 6 Week Course - Multiple Disease Sites 5 06/12/2025 CISplatin (PLATINOL) chemo infusion Automatically Discontinued - Inactive Plan Malvin Estrada MD 1 of 1 cycle started Current Radiation Episodes * IMRT: Bilateral Cervix, Bilateral PelvisOverview* First Treatment Date: 10/31/2024 Latest Treatment Date:12/05/2024 Intent:Curative Episode Provider: Intended Treatment Radiotherapy to Right and Le ft Uterine cervixRadiotherapy to Right and Left Pelvis * Linked Problems Cervical cancer, FIGO stage [...]
[2025-06-13 14:59] LABS: Iron 73 ug/dL (37-170)
[2025-06-13 15:00] LABS: Albumin Level 4.5 g/dL (3.5-5.1); Anion Gap 8 mmol/L (4-12); Blood Urea Nitrogen 29 mg/dL (7-17); Calcium 9.7 mg/dL (8.4-10.2); Carbon Dioxide 30 mmol/L (22-30); Chloride 99 mmol/L (98-107); Estimated Glomerular Filt Rate 42; Glucose 118 mg/dL (65-110); Osmolality Calculated 290 mOsm/kg (285-295); Potassium 5.6 mmol/L (3.4-5.0); Sodium 137 mmol/L (137-145)
[2025-06-13 15:09] LABS: Percent Iron Saturation 22 % (20-50)
[2025-06-13 15:36] LABS: Ferritin 75.20 ng/mL (11.1-264)
[2025-06-13 16:07] LABS: Vitamin B12 767.0 pg/mL (239-931)
== END 2025-06-13 13:58 | disposition home or self-care (01) ==
PROVIDERS: PCP Nurse Practitioner Family; Visit Provider Internal Medicine
DX: E87.6 Hypokalemia (principal); E83.42 Hypomagnesemia; I10 Essential (primary) hypertension; E87.5 Hyperkalemia; E86.0 Dehydration; E11.9 Type 2 diabetes mellitus without complications; E78.5 Hyperlipidemia, unspecified; E87.1 Hypo-osmolality and hyponatremia; D64.9 Anemia, unspecified
CPT/HCPCS: 36415; 80069; 82607; 82728; 82746; 83540; 83550; 85027; 85055